=== PATIENT | male | born 1980 | race Caucasian/White ===

== ENCOUNTER 2017-03-14 12:30 | Outpatient (RCR) | payer MEDICAID, SELFPAY ==
[2017-02-28 12:38] LABS: Absolute Lymphocyte Count 2.34 X10^3/ul (0.83-4.51); Absolute Neutrophil Count 3.2 X10^3/uL (2.0-7.7); Basophil# 0.01 X10^3/uL; Basophil% 0.2 % (0-1); Eosinophil# 0.12 X10^3/uL; Eosinophils% 1.9 % (0-5); Hematocrit 43.7 % (40-54); Hemoglobin 14.3 g/dl (13.0-16.5); Lymphocyte # 2.34 X10^3/ul (4.0); Lymphocyte % 37.9 % (19-41); Mean Corp Hgb Conc 32.7 g/gl (32-36); Mean Corpuscular Hgb 29.2 pg (27.0-32.0); Mean Corpuscular Volume 89.4 fL (80-94); Mean Platelet Vol. 10.3 fl (6.2-12.0); Monocyte# 0.51 X10^3/uL; Monocyte% 8.3 % (0-10); Neutrophil # 3.17 X10^3/uL (2.7-7.7); Neutrophil % 51.4 % (47-70); Platelet Count 169 K/mm3 (150-450); RBC Distribution Width CV 14.3 % (11.6-14.6); RBC Distribution Width SD 46.7 fl (35.1-43.9); Red Blood Count 4.89 M/mm3 (4.6-6.2); White Blood Count 6.2 K/mm3 (4.4-11.0)
[2017-02-28 12:44] LABS: POSITIVE COUNT NO; POSITIVE DIFFERENTIAL NO; POSITIVE MORPHOLOGY NO
[2017-03-14 13:51] LABS: Absolute Lymphocyte Count 1.55 X10^3/ul (0.83-4.51); Absolute Neutrophil Count 2.1 X10^3/uL (2.0-7.7); Basophil# 0.02 X10^3/uL; Basophil% 0.5 % (0-1); Eosinophil# 0.03 X10^3/uL; Eosinophils% 0.7 % (0-5); Hematocrit 42.5 % (40-54); Hemoglobin 14.2 g/dl (13.0-16.5); Lymphocyte # 1.55 X10^3/ul (4.0); Lymphocyte % 37.4 % (19-41); Mean Corp Hgb Conc 33.4 g/gl (32-36); Mean Corpuscular Hgb 29.5 pg (27.0-32.0); Mean Corpuscular Volume 88.2 fL (80-94); Mean Platelet Vol. 10.6 fl (6.2-12.0); Monocyte# 0.42 X10^3/uL; Monocyte% 10.1 % (0-10); Neutrophil # 2.12 X10^3/uL (2.7-7.7); Neutrophil % 51.3 % (47-70); Platelet Count 156 K/mm3 (150-450); RBC Distribution Width CV 14.9 % (11.6-14.6); RBC Distribution Width SD 47.8 fl (35.1-43.9); Red Blood Count 4.82 M/mm3 (4.6-6.2); White Blood Count 4.1 K/mm3 (4.4-11.0)
[2017-03-14 13:53] LABS: POSITIVE COUNT NO; POSITIVE DIFFERENTIAL NO; POSITIVE MORPHOLOGY NO
== END 2017-03-14 13:00 | disposition home or self-care (01) ==
LOC: LAB 12:30
PROVIDERS: Family Provider Family Medicine; PCP Family Medicine; Visit Provider Psychiatry & Neurology Child & Adolescent Psychiatry
DX: F31.9 Bipolar disorder, unspecified (principal); F41.9 Anxiety disorder, unspecified
CPT/HCPCS: 36415; 85025

== ENCOUNTER 2017-03-22 13:28 | Outpatient (RCR) | payer MEDICAID, SELFPAY ==
[2017-03-22 14:00] LABS: Absolute Lymphocyte Count 2.25 X10^3/ul (0.83-4.51); Absolute Neutrophil Count 5.3 X10^3/uL (2.0-7.7); Basophil# 0.01 X10^3/uL; Basophil% 0.1 % (0-1); Eosinophils% 1.2 % (0-5); Hematocrit 43.7 % (40-54); Hemoglobin 14.6 g/dl (13.0-16.5); Lymphocyte # 2.25 X10^3/ul (4.0); Lymphocyte % 26.4 % (19-41); Mean Corp Hgb Conc 33.4 g/gl (32-36); Mean Corpuscular Hgb 29.4 pg (27.0-32.0); Mean Corpuscular Volume 88.1 fL (80-94); Monocyte% 9.4 % (0-10); Neutrophil # 5.33 X10^3/uL (2.7-7.7); Neutrophil % 62.7 % (47-70); POSITIVE COUNT NO; POSITIVE DIFFERENTIAL NO; POSITIVE MORPHOLOGY NO; Platelet Count 150 K/mm3 (150-450); RBC Distribution Width CV 14.8 % (11.6-14.6); RBC Distribution Width SD 47.6 fl (35.1-43.9); Red Blood Count 4.96 M/mm3 (4.6-6.2); White Blood Count 8.5 K/mm3 (4.4-11.0)
== END 2017-03-22 15:00 | disposition home or self-care (01) ==
LOC: LAB 13:28
PROVIDERS: Family Provider Family Medicine; PCP Family Medicine; Visit Provider Psychiatry & Neurology Child & Adolescent Psychiatry
DX: F31.9 Bipolar disorder, unspecified (principal); F41.9 Anxiety disorder, unspecified
CPT/HCPCS: 36415; 85025

== ENCOUNTER 2017-05-16 10:44 | Outpatient (RCR) | payer MEDICAID, SELFPAY ==
[2017-04-19 10:27] LABS: Absolute Lymphocyte Count 1.38 X10^3/ul (0.83-4.51); Absolute Neutrophil Count 2.1 X10^3/uL (2.0-7.7); Basophil# 0.01 X10^3/uL; Basophil% 0.3 % (0-1); Eosinophil# 0.03 X10^3/uL; Eosinophils% 0.8 % (0-5); Lymphocyte # 1.38 X10^3/ul (4.0); Lymphocyte % 34.9 % (19-41); Mean Corp Hgb Conc 34.1 g/gl (32-36); Mean Corpuscular Hgb 30.1 pg (27.0-32.0); Mean Corpuscular Volume 88.2 fL (80-94); Mean Platelet Vol. 9.6 fl (6.2-12.0); Monocyte# 0.42 X10^3/uL; Monocyte% 10.6 % (0-10); Neutrophil % 53.1 % (47-70); POSITIVE COUNT NO; POSITIVE DIFFERENTIAL NO; POSITIVE MORPHOLOGY NO; Platelet Count 171 K/mm3 (150-450); RBC Distribution Width CV 14.9 % (11.6-14.6); Red Blood Count 4.65 M/mm3 (4.6-6.2)
[2017-04-19 10:51] LABS: ALB/GLOB Ratio 0.9 RATIO (0.9-2.4); AST(SGOT) 12 U/L (15-37); Alanine Aminotransfer ALT/SGPT 18 U/L (16-61); Albumin, Serum 3.7 g/dL (3.2-5.0); Alkaline Phosphatase 45 U/L (45-117); Anion Gap 8 (5-15); BUN 9 mg/dL (7-18); BUN/Creat Ratio 11.5 RATIO (10-20); Calcium,Total 9.3 mg/dL (8.5-10.1); Chloride 104 mmol/L (98-107); Creatinine, Serum 0.78 mg/dL (0.70-1.30); EST Glomerular Filtration Rate 119 mL/min (>60); Est Glom Filt Rate - Afr Amer 144 mL/min (>60); Globulin 4.3 g/dL (2.2-4.2); Glucose 97 mg/dL (74-106); Potassium 4.2 mmol/L (3.5-5.1); Sodium Level 138 mmol/L (136-145)
[2017-04-22 11:19] LABS: Absolute Lymphocyte Count 1.35 X10^3/ul (0.83-4.51); Absolute Neutrophil Count 1.8 X10^3/uL (2.0-7.7); Basophil# 0.01 X10^3/uL; Basophil% 0.3 % (0-1); Eosinophil# 0.05 X10^3/uL; Eosinophils% 1.3 % (0-5); Hematocrit 40.7 % (40-54); Hemoglobin 13.5 g/dl (13.0-16.5); Lymphocyte # 1.35 X10^3/ul (4.0); Lymphocyte % 36.4 % (19-41); Mean Corp Hgb Conc 33.2 g/gl (32-36); Mean Corpuscular Hgb 29.3 pg (27.0-32.0); Mean Corpuscular Volume 88.5 fL (80-94); Mean Platelet Vol. 9.4 fl (6.2-12.0); Monocyte# 0.48 X10^3/uL; Monocyte% 12.9 % (0-10); Neutrophil # 1.81 X10^3/uL (2.7-7.7); Neutrophil % 48.8 % (47-70); Platelet Count 150 K/mm3 (150-450); RBC Distribution Width CV 15.1 % (11.6-14.6); RBC Distribution Width SD 48.3 fl (35.1-43.9); White Blood Count 3.7 K/mm3 (4.4-11.0)
[2017-04-22 11:24] LABS: POSITIVE COUNT NO; POSITIVE DIFFERENTIAL NO; POSITIVE MORPHOLOGY NO
[2017-04-22 11:55] LABS: ALB/GLOB Ratio 0.8 RATIO (0.9-2.4); AST(SGOT) 20 U/L (15-37); Alanine Aminotransfer ALT/SGPT 19 U/L (16-61); Albumin, Serum 3.6 g/dL (3.2-5.0); Alkaline Phosphatase 48 U/L (45-117); Anion Gap 8 (5-15); BUN 10 mg/dL (7-18); BUN/Creat Ratio 11.7 RATIO (10-20); Calcium,Total 9.5 mg/dL (8.5-10.1); Chloride 105 mmol/L (98-107); Creatinine, Serum 0.86 mg/dL (0.70-1.30); EST Glomerular Filtration Rate 107 mL/min (>60); Est Glom Filt Rate - Afr Amer 130 mL/min (>60); Globulin 4.3 g/dL (2.2-4.2); Glucose 114 mg/dL (74-106); Potassium 4.2 mmol/L (3.5-5.1); Protein, Total 7.9 g/dL (6.4-8.2); Sodium Level 139 mmol/L (136-145)
[2017-04-26 10:10] LABS: Valproic Acid (Depakene) Level 84 ug/mL (50-100)
[2017-04-26 10:16] LABS: ALB/GLOB Ratio 0.9 RATIO (0.9-2.4); AST(SGOT) 21 U/L (15-37); Alanine Aminotransfer ALT/SGPT 23 U/L (16-61); Alkaline Phosphatase 48 U/L (45-117); Anion Gap 7 (5-15); BUN 9 mg/dL (7-18); BUN/Creat Ratio 11.3 RATIO (10-20); Calcium,Total 9.7 mg/dL (8.5-10.1); Chloride 103 mmol/L (98-107); Creatinine, Serum 0.79 mg/dL (0.70-1.30); EST Glomerular Filtration Rate 117 mL/min (>60); Est Glom Filt Rate - Afr Amer 142 mL/min (>60); Globulin 4.4 g/dL (2.2-4.2); Glucose 96 mg/dL (74-106); Potassium 4.3 mmol/L (3.5-5.1); Protein, Total 8.4 g/dL (6.4-8.2); Sodium Level 137 mmol/L (136-145)
[2017-05-02 09:15] LABS: Absolute Lymphocyte Count 1.52 X10^3/ul (0.83-4.51); Absolute Neutrophil Count 2.5 X10^3/uL (2.0-7.7); Basophil# 0.01 X10^3/uL; Basophil% 0.2 % (0-1); Eosinophil# 0.06 X10^3/uL; Eosinophils% 1.3 % (0-5); Hematocrit 39.9 % (40-54); Hemoglobin 13.4 g/dl (13.0-16.5); Lymphocyte # 1.52 X10^3/ul (4.0); Lymphocyte % 32.8 % (19-41); Mean Corp Hgb Conc 33.6 g/gl (32-36); Mean Corpuscular Volume 89.3 fL (80-94); Mean Platelet Vol. 9.8 fl (6.2-12.0); Monocyte# 0.54 X10^3/uL; Monocyte% 11.7 % (0-10); Neutrophil # 2.49 X10^3/uL (2.7-7.7); Neutrophil % 53.8 % (47-70); Platelet Count 153 K/mm3 (150-450); RBC Distribution Width CV 15.1 % (11.6-14.6); RBC Distribution Width SD 49.1 fl (35.1-43.9); Red Blood Count 4.47 M/mm3 (4.6-6.2); White Blood Count 4.6 K/mm3 (4.4-11.0)
[2017-05-02 09:20] LABS: POSITIVE COUNT NO; POSITIVE DIFFERENTIAL NO; POSITIVE MORPHOLOGY NO
[2017-05-09 08:33] LABS: Absolute Lymphocyte Count 1.75 X10^3/ul (0.83-4.51); Absolute Neutrophil Count 2.8 X10^3/uL (2.0-7.7); Basophil# 0.01 X10^3/uL; Basophil% 0.2 % (0-1); Eosinophil# 0.15 X10^3/uL; Eosinophils% 2.9 % (0-5); Hematocrit 41.1 % (40-54); Hemoglobin 13.4 g/dl (13.0-16.5); Lymphocyte # 1.75 X10^3/ul (4.0); Lymphocyte % 34.1 % (19-41); Mean Corp Hgb Conc 32.6 g/gl (32-36); Mean Corpuscular Hgb 29.6 pg (27.0-32.0); Mean Corpuscular Volume 90.7 fL (80-94); Mean Platelet Vol. 9.7 fl (6.2-12.0); Monocyte# 0.47 X10^3/uL; Monocyte% 9.2 % (0-10); Neutrophil # 2.75 X10^3/uL (2.7-7.7); Neutrophil % 53.6 % (47-70); Platelet Count 142 K/mm3 (150-450); RBC Distribution Width SD 53.5 fl (35.1-43.9); Red Blood Count 4.53 M/mm3 (4.6-6.2); White Blood Count 5.1 K/mm3 (4.4-11.0)
[2017-05-09 08:34] LABS: POSITIVE COUNT NO; POSITIVE DIFFERENTIAL NO; POSITIVE MORPHOLOGY NO
[2017-05-16 11:20] LABS: Absolute Neutrophil Count 2.6 X10^3/uL (2.0-7.7); Basophil# 0.01 X10^3/uL; Basophil% 0.2 % (0-1); Eosinophil# 0.08 X10^3/uL; Eosinophils% 1.6 % (0-5); Hematocrit 39.9 % (40-54); Hemoglobin 13.1 g/dl (13.0-16.5); Lymphocyte % 32.9 % (19-41); Mean Corp Hgb Conc 32.8 g/gl (32-36); Mean Corpuscular Hgb 29.9 pg (27.0-32.0); Mean Corpuscular Volume 91.1 fL (80-94); Mean Platelet Vol. 9.8 fl (6.2-12.0); Monocyte# 0.74 X10^3/uL; Monocyte% 14.3 % (0-10); Neutrophil # 2.62 X10^3/uL (2.7-7.7); Neutrophil % 50.8 % (47-70); Platelet Count 164 K/mm3 (150-450); RBC Distribution Width CV 15.7 % (11.6-14.6); RBC Distribution Width SD 51.5 fl (35.1-43.9); Red Blood Count 4.38 M/mm3 (4.6-6.2); White Blood Count 5.2 K/mm3 (4.4-11.0)
[2017-05-16 11:26] LABS: POSITIVE COUNT NO; POSITIVE DIFFERENTIAL NO; POSITIVE MORPHOLOGY NO
== END 2017-05-16 11:00 | disposition home or self-care (01) ==
LOC: LAB 10:44
PROVIDERS: Family Provider Family Medicine; PCP Family Medicine; Visit Provider Psychiatry & Neurology Child & Adolescent Psychiatry
DX: F31.9 Bipolar disorder, unspecified (principal); F41.9 Anxiety disorder, unspecified
CPT/HCPCS: 36415; 80053; 80164; 82140; 85025

== ENCOUNTER 2017-06-14 09:58 | Outpatient (RCR) | payer MEDICAID, SELFPAY ==
[2017-05-24 11:23] LABS: Absolute Lymphocyte Count 1.54 X10^3/ul (0.83-4.51); Absolute Neutrophil Count 2.7 X10^3/uL (2.0-7.7); Basophil# 0.02 X10^3/uL; Basophil% 0.4 % (0-1); Eosinophil# 0.07 X10^3/uL; Eosinophils% 1.4 % (0-5); Hematocrit 39.7 % (40-54); Hemoglobin 13.2 g/dl (13.0-16.5); Lymphocyte # 1.54 X10^3/ul (4.0); Lymphocyte % 31.6 % (19-41); Mean Corp Hgb Conc 33.2 g/gl (32-36); Mean Corpuscular Hgb 29.9 pg (27.0-32.0); Mean Platelet Vol. 9.8 fl (6.2-12.0); Monocyte# 0.49 X10^3/uL; Monocyte% 10.1 % (0-10); Neutrophil # 2.74 X10^3/uL (2.7-7.7); Neutrophil % 56.3 % (47-70); Platelet Count 184 K/mm3 (150-450); RBC Distribution Width CV 15.4 % (11.6-14.6); RBC Distribution Width SD 50.7 fl (35.1-43.9); Red Blood Count 4.41 M/mm3 (4.6-6.2); White Blood Count 4.9 K/mm3 (4.4-11.0)
[2017-05-24 11:26] LABS: POSITIVE COUNT NO; POSITIVE DIFFERENTIAL NO; POSITIVE MORPHOLOGY NO
[2017-05-24 11:53] LABS: ALB/GLOB Ratio 0.8 RATIO (0.9-2.4); AST(SGOT) 22 U/L (15-37); Alanine Aminotransfer ALT/SGPT 19 U/L (16-61); Albumin, Serum 3.6 g/dL (3.2-5.0); Alkaline Phosphatase 45 U/L (45-117); Anion Gap 8 (5-15); BUN 11 mg/dL (7-18); BUN/Creat Ratio 15.5 RATIO (10-20); Calcium,Total 9.1 mg/dL (8.5-10.1); Chloride 104 mmol/L (98-107); Creatinine, Serum 0.71 mg/dL (0.70-1.30); EST Glomerular Filtration Rate 133 mL/min (>60); Est Glom Filt Rate - Afr Amer 161 mL/min (>60); Globulin 4.4 g/dL (2.2-4.2); Glucose 85 mg/dL (74-106); Potassium 4.1 mmol/L (3.5-5.1); Sodium Level 139 mmol/L (136-145)
[2017-05-30 08:49] LABS: Absolute Lymphocyte Count 1.38 X10^3/ul (0.83-4.51); Absolute Neutrophil Count 2.7 X10^3/uL (2.0-7.7); Basophil# 0.01 X10^3/uL; Basophil% 0.2 % (0-1); Eosinophil# 0.14 X10^3/uL; Eosinophils% 2.9 % (0-5); Hematocrit 39.6 % (40-54); Hemoglobin 13.1 g/dl (13.0-16.5); Lymphocyte # 1.38 X10^3/ul (4.0); Lymphocyte % 28.9 % (19-41); Mean Corp Hgb Conc 33.1 g/gl (32-36); Mean Corpuscular Hgb 30.3 pg (27.0-32.0); Mean Corpuscular Volume 91.5 fL (80-94); Mean Platelet Vol. 9.9 fl (6.2-12.0); Monocyte# 0.56 X10^3/uL; Monocyte% 11.7 % (0-10); Neutrophil # 2.67 X10^3/uL (2.7-7.7); Neutrophil % 56.1 % (47-70); POSITIVE COUNT NO; POSITIVE DIFFERENTIAL NO; POSITIVE MORPHOLOGY NO; Platelet Count 162 K/mm3 (150-450); RBC Distribution Width CV 15.4 % (11.6-14.6); RBC Distribution Width SD 50.4 fl (35.1-43.9); Red Blood Count 4.33 M/mm3 (4.6-6.2); White Blood Count 4.8 K/mm3 (4.4-11.0)
[2017-05-30 09:10] LABS: Valproic Acid (Depakene) Level 80 ug/mL (50-100)
[2017-05-30 09:23] LABS: ALB/GLOB Ratio 0.9 RATIO (0.9-2.4); AST(SGOT) 23 U/L (15-37); Alanine Aminotransfer ALT/SGPT 20 U/L (16-61); Albumin, Serum 3.4 g/dL (3.2-5.0); Alkaline Phosphatase 47 U/L (45-117); Anion Gap 6 (5-15); BUN 11 mg/dL (7-18); BUN/Creat Ratio 14.1 RATIO (10-20); Chloride 107 mmol/L (98-107); Creatinine, Serum 0.78 mg/dL (0.70-1.30); EST Glomerular Filtration Rate 120 mL/min (>60); Est Glom Filt Rate - Afr Amer 145 mL/min (>60); Globulin 3.8 g/dL (2.2-4.2); Glucose 66 mg/dL (74-106); Potassium 4.1 mmol/L (3.5-5.1); Protein, Total 7.2 g/dL (6.4-8.2); Sodium Level 144 mmol/L (136-145)
[2017-06-07 11:38] LABS: Absolute Lymphocyte Count 1.82 X10^3/ul (0.83-4.51); Absolute Neutrophil Count 2.6 X10^3/uL (2.0-7.7); Basophil# 0.02 X10^3/uL; Basophil% 0.4 % (0-1); Eosinophil# 0.08 X10^3/uL; Eosinophils% 1.6 % (0-5); Hematocrit 39.6 % (40-54); Hemoglobin 13.1 g/dl (13.0-16.5); Lymphocyte # 1.82 X10^3/ul (4.0); Lymphocyte % 36.2 % (19-41); Mean Corp Hgb Conc 33.1 g/gl (32-36); Mean Corpuscular Hgb 30.2 pg (27.0-32.0); Mean Corpuscular Volume 91.2 fL (80-94); Mean Platelet Vol. 9.9 fl (6.2-12.0); Monocyte# 0.49 X10^3/uL; Monocyte% 9.7 % (0-10); Neutrophil # 2.61 X10^3/uL (2.7-7.7); Neutrophil % 51.9 % (47-70); Platelet Count 189 K/mm3 (150-450); RBC Distribution Width CV 15.1 % (11.6-14.6); RBC Distribution Width SD 49.3 fl (35.1-43.9); Red Blood Count 4.34 M/mm3 (4.6-6.2)
[2017-06-07 11:40] LABS: POSITIVE COUNT NO; POSITIVE DIFFERENTIAL NO; POSITIVE MORPHOLOGY NO
[2017-06-14 11:36] LABS: Absolute Lymphocyte Count 2.05 X10^3/ul (0.83-4.51); Absolute Neutrophil Count 2.7 X10^3/uL (2.0-7.7); Basophil# 0.01 X10^3/uL; Basophil% 0.2 % (0-1); Eosinophil# 0.07 X10^3/uL; Eosinophils% 1.3 % (0-5); Hematocrit 40.9 % (40-54); Hemoglobin 13.1 g/dl (13.0-16.5); Lymphocyte # 2.05 X10^3/ul (4.0); Lymphocyte % 37.9 % (19-41); Mean Corpuscular Hgb 29.2 pg (27.0-32.0); Mean Corpuscular Volume 91.3 fL (80-94); Mean Platelet Vol. 9.7 fl (6.2-12.0); Monocyte# 0.62 X10^3/uL; Monocyte% 11.5 % (0-10); Neutrophil # 2.65 X10^3/uL (2.7-7.7); Neutrophil % 48.9 % (47-70); POSITIVE COUNT NO; POSITIVE DIFFERENTIAL NO; POSITIVE MORPHOLOGY NO; Platelet Count 173 K/mm3 (150-450); RBC Distribution Width CV 15.1 % (11.6-14.6); Red Blood Count 4.48 M/mm3 (4.6-6.2); White Blood Count 5.4 K/mm3 (4.4-11.0)
== END 2017-06-14 10:00 | disposition home or self-care (01) ==
LOC: LAB 09:58
PROVIDERS: Family Provider Family Medicine; PCP Family Medicine; Visit Provider Psychiatry & Neurology Child & Adolescent Psychiatry
DX: F31.9 Bipolar disorder, unspecified (principal); F41.9 Anxiety disorder, unspecified
CPT/HCPCS: 36415; 80053; 80164; 85025

== ENCOUNTER 2017-07-04 08:18 | Outpatient (RCR) | payer MEDICAID, SELFPAY ==
[2017-07-04 09:00] LABS: Absolute Lymphocyte Count 1.49 X10^3/ul (0.83-4.51); Absolute Neutrophil Count 3.6 X10^3/uL (2.0-7.7); Basophil# 0.01 X10^3/uL; Basophil% 0.2 % (0-1); Eosinophil# 0.08 X10^3/uL; Eosinophils% 1.4 % (0-5); Hematocrit 41.3 % (40-54); Hemoglobin 13.2 g/dl (13.0-16.5); Lymphocyte # 1.49 X10^3/ul (4.0); Lymphocyte % 25.5 % (19-41); Mean Corpuscular Hgb 29.2 pg (27.0-32.0); Mean Corpuscular Volume 91.4 fL (80-94); Mean Platelet Vol. 9.6 fl (6.2-12.0); Monocyte# 0.65 X10^3/uL; Monocyte% 11.1 % (0-10); Neutrophil # 3.61 X10^3/uL (2.7-7.7); Neutrophil % 61.6 % (47-70); Platelet Count 155 K/mm3 (150-450); RBC Distribution Width CV 14.8 % (11.6-14.6); RBC Distribution Width SD 49.7 fl (35.1-43.9); Red Blood Count 4.52 M/mm3 (4.6-6.2); White Blood Count 5.9 K/mm3 (4.4-11.0)
[2017-07-04 09:05] LABS: POSITIVE COUNT NO; POSITIVE DIFFERENTIAL NO; POSITIVE MORPHOLOGY NO
[2017-07-04 09:25] LABS: Valproic Acid (Depakene) Level 67 ug/mL (50-100)
[2017-07-04 09:26] LABS: ALB/GLOB Ratio 0.8 RATIO (0.9-2.4); AST(SGOT) 13 U/L (15-37); Alanine Aminotransfer ALT/SGPT 17 U/L (16-61); Albumin, Serum 3.3 g/dL (3.2-5.0); Alkaline Phosphatase 45 U/L (45-117); Anion Gap 7 (5-15); BUN 13 mg/dL (7-18); Calcium,Total 8.8 mg/dL (8.5-10.1); Chloride 107 mmol/L (98-107); Creatinine, Serum 0.81 mg/dL (0.70-1.30); EST Glomerular Filtration Rate 114 mL/min (>60); Est Glom Filt Rate - Afr Amer 139 mL/min (>60); Globulin 4.1 g/dL (2.2-4.2); Glucose 95 mg/dL (74-106); Potassium 4.2 mmol/L (3.5-5.1); Protein, Total 7.4 g/dL (6.4-8.2); Sodium Level 144 mmol/L (136-145)
== END 2017-07-04 09:00 | disposition home or self-care (01) ==
LOC: LAB 08:18
PROVIDERS: Family Provider Family Medicine; PCP Family Medicine; Visit Provider Psychiatry & Neurology Child & Adolescent Psychiatry
DX: F31.81 Bipolar II disorder (principal); F31.9 Bipolar disorder, unspecified; F41.9 Anxiety disorder, unspecified
CPT/HCPCS: 36415; 80053; 80164; 85025

== ENCOUNTER 2017-08-15 09:59 | Outpatient (RCR) | payer MEDICAID, SELFPAY ==
[2017-08-01 11:01] LABS: Absolute Neutrophil Count 3.4 X10^3/uL (2.0-7.7); Basophil# 0.01 X10^3/uL; Basophil% 0.2 % (0-1); Eosinophil# 0.11 X10^3/uL; Eosinophils% 1.8 % (0-5); Hematocrit 41.1 % (40-54); Hemoglobin 13.7 g/dl (13.0-16.5); Lymphocyte % 31.2 % (19-41); Mean Corp Hgb Conc 33.3 g/gl (32-36); Mean Corpuscular Hgb 29.7 pg (27.0-32.0); Mean Corpuscular Volume 89.2 fL (80-94); Monocyte# 0.62 X10^3/uL; Monocyte% 10.2 % (0-10); Neutrophil # 3.43 X10^3/uL (2.7-7.7); Neutrophil % 56.3 % (47-70); Platelet Count 193 K/mm3 (150-450); RBC Distribution Width CV 14.2 % (11.6-14.6); RBC Distribution Width SD 45.8 fl (35.1-43.9); Red Blood Count 4.61 M/mm3 (4.6-6.2); White Blood Count 6.1 K/mm3 (4.4-11.0)
[2017-08-01 11:04] LABS: POSITIVE COUNT NO; POSITIVE DIFFERENTIAL NO; POSITIVE MORPHOLOGY NO
[2017-08-08 11:01] LABS: Absolute Lymphocyte Count 1.63 X10^3/ul (0.83-4.51); Absolute Neutrophil Count 3.7 X10^3/uL (2.0-7.7); Basophil# 0.01 X10^3/uL; Basophil% 0.2 % (0-1); Eosinophil# 0.19 X10^3/uL; Hematocrit 40.4 % (40-54); Hemoglobin 13.6 g/dl (13.0-16.5); Lymphocyte # 1.63 X10^3/ul (4.0); Lymphocyte % 25.7 % (19-41); Mean Corp Hgb Conc 33.7 g/gl (32-36); Mean Corpuscular Hgb 29.9 pg (27.0-32.0); Mean Corpuscular Volume 88.8 fL (80-94); Mean Platelet Vol. 9.8 fl (6.2-12.0); Monocyte# 0.78 X10^3/uL; Monocyte% 12.3 % (0-10); Neutrophil # 3.73 X10^3/uL (2.7-7.7); Neutrophil % 58.6 % (47-70); Platelet Count 163 K/mm3 (150-450); RBC Distribution Width CV 14.2 % (11.6-14.6); RBC Distribution Width SD 45.6 fl (35.1-43.9); Red Blood Count 4.55 M/mm3 (4.6-6.2); White Blood Count 6.4 K/mm3 (4.4-11.0)
[2017-08-08 11:06] LABS: POSITIVE COUNT NO; POSITIVE DIFFERENTIAL NO; POSITIVE MORPHOLOGY NO
[2017-08-15 11:25] LABS: Absolute Lymphocyte Count 1.76 X10^3/ul (0.83-4.51); Absolute Neutrophil Count 2.8 X10^3/uL (2.0-7.7); Basophil# 0.01 X10^3/uL; Basophil% 0.2 % (0-1); Eosinophil# 0.23 X10^3/uL; Eosinophils% 4.2 % (0-5); Hematocrit 41.8 % (40-54); Hemoglobin 13.4 g/dl (13.0-16.5); Lymphocyte # 1.76 X10^3/ul (4.0); Lymphocyte % 32.1 % (19-41); Mean Corp Hgb Conc 32.1 g/gl (32-36); Mean Corpuscular Hgb 28.6 pg (27.0-32.0); Mean Corpuscular Volume 89.1 fL (80-94); Mean Platelet Vol. 9.4 fl (6.2-12.0); Monocyte# 0.72 X10^3/uL; Monocyte% 13.1 % (0-10); Neutrophil # 2.76 X10^3/uL (2.7-7.7); Neutrophil % 50.2 % (47-70); Platelet Count 150 K/mm3 (150-450); RBC Distribution Width CV 14.4 % (11.6-14.6); RBC Distribution Width SD 46.6 fl (35.1-43.9); Red Blood Count 4.69 M/mm3 (4.6-6.2); White Blood Count 5.5 K/mm3 (4.4-11.0)
[2017-08-15 11:26] LABS: POSITIVE COUNT NO; POSITIVE DIFFERENTIAL NO; POSITIVE MORPHOLOGY NO
== END 2017-08-15 11:00 | disposition home or self-care (01) ==
LOC: LAB 09:59
PROVIDERS: Family Provider Family Medicine; PCP Family Medicine; Visit Provider Psychiatry & Neurology Child & Adolescent Psychiatry
DX: F31.81 Bipolar II disorder (principal); F31.9 Bipolar disorder, unspecified; F41.9 Anxiety disorder, unspecified
CPT/HCPCS: 36415; 85025

== ENCOUNTER 2017-09-12 09:51 | Outpatient (RCR) | payer MEDICAID, SELFPAY ==
[2017-08-22 10:05] LABS: Absolute Lymphocyte Count 1.99 X10^3/ul (0.83-4.51); Basophil# 0.02 X10^3/uL; Basophil% 0.4 % (0-1); Eosinophil# 0.16 X10^3/uL; Eosinophils% 3.4 % (0-5); Hematocrit 40.6 % (40-54); Hemoglobin 13.5 g/dl (13.0-16.5); Lymphocyte # 1.99 X10^3/ul (4.0); Lymphocyte % 42.5 % (19-41); Mean Corp Hgb Conc 33.3 g/gl (32-36); Mean Corpuscular Hgb 29.7 pg (27.0-32.0); Mean Corpuscular Volume 89.2 fL (80-94); Mean Platelet Vol. 9.7 fl (6.2-12.0); Monocyte# 0.45 X10^3/uL; Monocyte% 9.6 % (0-10); Neutrophil # 2.04 X10^3/uL (2.7-7.7); Neutrophil % 43.7 % (47-70); Platelet Count 143 K/mm3 (150-450); RBC Distribution Width CV 14.1 % (11.6-14.6); RBC Distribution Width SD 45.4 fl (35.1-43.9); Red Blood Count 4.55 M/mm3 (4.6-6.2); White Blood Count 4.7 K/mm3 (4.4-11.0)
[2017-08-22 10:06] LABS: POSITIVE COUNT NO; POSITIVE DIFFERENTIAL NO; POSITIVE MORPHOLOGY NO
[2017-08-29 10:34] LABS: Absolute Lymphocyte Count 1.76 X10^3/ul (0.83-4.51); Absolute Neutrophil Count 2.9 X10^3/uL (2.0-7.7); Basophil# 0.02 X10^3/uL; Basophil% 0.4 % (0-1); Eosinophil# 0.12 X10^3/uL; Eosinophils% 2.2 % (0-5); Hemoglobin 13.6 g/dl (13.0-16.5); Lymphocyte # 1.76 X10^3/ul (4.0); Lymphocyte % 31.8 % (19-41); Mean Corp Hgb Conc 33.2 g/gl (32-36); Mean Corpuscular Hgb 29.4 pg (27.0-32.0); Mean Corpuscular Volume 88.7 fL (80-94); Mean Platelet Vol. 9.8 fl (6.2-12.0); Monocyte% 12.6 % (0-10); Neutrophil # 2.93 X10^3/uL (2.7-7.7); Neutrophil % 52.8 % (47-70); Platelet Count 166 K/mm3 (150-450); RBC Distribution Width CV 14.3 % (11.6-14.6); RBC Distribution Width SD 45.8 fl (35.1-43.9); Red Blood Count 4.62 M/mm3 (4.6-6.2); White Blood Count 5.5 K/mm3 (4.4-11.0)
[2017-08-29 10:35] LABS: POSITIVE COUNT NO; POSITIVE DIFFERENTIAL NO; POSITIVE MORPHOLOGY NO
[2017-09-05 10:24] LABS: Absolute Lymphocyte Count 2.03 X10^3/ul (0.83-4.51); Absolute Neutrophil Count 2.6 X10^3/uL (2.0-7.7); Basophil# 0.02 X10^3/uL; Basophil% 0.4 % (0-1); Eosinophil# 0.17 X10^3/uL; Eosinophils% 3.2 % (0-5); Hematocrit 40.7 % (40-54); Hemoglobin 13.6 g/dl (13.0-16.5); Lymphocyte # 2.03 X10^3/ul (4.0); Lymphocyte % 38.3 % (19-41); Mean Corp Hgb Conc 33.4 g/gl (32-36); Mean Corpuscular Hgb 29.6 pg (27.0-32.0); Mean Corpuscular Volume 88.7 fL (80-94); Mean Platelet Vol. 9.5 fl (6.2-12.0); Monocyte# 0.51 X10^3/uL; Monocyte% 9.6 % (0-10); Neutrophil # 2.56 X10^3/uL (2.7-7.7); Neutrophil % 48.3 % (47-70); Platelet Count 147 K/mm3 (150-450); RBC Distribution Width CV 14.2 % (11.6-14.6); RBC Distribution Width SD 45.7 fl (35.1-43.9); Red Blood Count 4.59 M/mm3 (4.6-6.2); White Blood Count 5.3 K/mm3 (4.4-11.0)
[2017-09-05 10:25] LABS: POSITIVE COUNT NO; POSITIVE DIFFERENTIAL NO; POSITIVE MORPHOLOGY NO
[2017-09-12 10:36] LABS: Absolute Lymphocyte Count 1.81 X10^3/ul (0.83-4.51); Absolute Neutrophil Count 3.4 X10^3/uL (2.0-7.7); Basophil# 0.01 X10^3/uL; Basophil% 0.2 % (0-1); Eosinophil# 0.17 X10^3/uL; Eosinophils% 2.8 % (0-5); Hematocrit 42.6 % (40-54); Lymphocyte # 1.81 X10^3/ul (4.0); Lymphocyte % 29.9 % (19-41); Mean Corp Hgb Conc 32.9 g/gl (32-36); Mean Corpuscular Hgb 29.3 pg (27.0-32.0); Mean Corpuscular Volume 89.1 fL (80-94); Mean Platelet Vol. 9.5 fl (6.2-12.0); Monocyte# 0.69 X10^3/uL; Monocyte% 11.4 % (0-10); Neutrophil # 3.36 X10^3/uL (2.7-7.7); Neutrophil % 55.5 % (47-70); Platelet Count 147 K/mm3 (150-450); RBC Distribution Width CV 14.6 % (11.6-14.6); RBC Distribution Width SD 47.5 fl (35.1-43.9); Red Blood Count 4.78 M/mm3 (4.6-6.2); White Blood Count 6.1 K/mm3 (4.4-11.0)
[2017-09-12 10:42] LABS: POSITIVE COUNT NO; POSITIVE DIFFERENTIAL NO; POSITIVE MORPHOLOGY NO
[2017-09-12 10:53] LABS: Valproic Acid (Depakene) Level 78 ug/mL (50-100)
[2017-09-12 10:57] LABS: ALB/GLOB Ratio 0.8 RATIO (0.9-2.4); AST(SGOT) 16 U/L (15-37); Alanine Aminotransfer ALT/SGPT 17 U/L (16-61); Albumin, Serum 3.6 g/dL (3.2-5.0); Alkaline Phosphatase 46 U/L (45-117); Anion Gap 6 (5-15); BUN 8 mg/dL (7-18); BUN/Creat Ratio 10.8 RATIO (10-20); Calcium,Total 9.6 mg/dL (8.5-10.1); Chloride 106 mmol/L (98-107); Creatinine, Serum 0.74 mg/dL (0.70-1.30); EST Glomerular Filtration Rate 127 mL/min (>60); Est Glom Filt Rate - Afr Amer 153 mL/min (>60); Globulin 4.3 g/dL (2.2-4.2); Glucose 89 mg/dL (74-106); Potassium 4.4 mmol/L (3.5-5.1); Protein, Total 7.9 g/dL (6.4-8.2); Sodium Level 141 mmol/L (136-145)
== END 2017-09-19 09:51 | disposition home or self-care (01) ==
LOC: LAB 09:51
PROVIDERS: Family Provider Family Medicine; PCP Family Medicine; Visit Provider Psychiatry & Neurology Child & Adolescent Psychiatry
DX: F31.81 Bipolar II disorder (principal)
CPT/HCPCS: 36415; 80053; 80164; 85025

== ENCOUNTER 2017-10-17 09:50 | Outpatient (RCR) | payer MEDICAID, SELFPAY ==
[2017-09-19 10:52] LABS: Absolute Lymphocyte Count 1.78 X10^3/ul (0.83-4.51); Absolute Neutrophil Count 1.7 X10^3/uL (2.0-7.7); Basophil# 0.01 X10^3/uL; Basophil% 0.2 % (0-1); Eosinophil# 0.17 X10^3/uL; Eosinophils% 4.2 % (0-5); Hematocrit 41.3 % (40-54); Hemoglobin 13.2 g/dl (13.0-16.5); Lymphocyte # 1.78 X10^3/ul (4.0); Lymphocyte % 43.5 % (19-41); Mean Corpuscular Hgb 28.7 pg (27.0-32.0); Mean Corpuscular Volume 89.8 fL (80-94); Mean Platelet Vol. 9.7 fl (6.2-12.0); Monocyte# 0.41 X10^3/uL; Neutrophil # 1.71 X10^3/uL (2.7-7.7); Neutrophil % 41.9 % (47-70); Platelet Count 143 K/mm3 (150-450); RBC Distribution Width CV 14.5 % (11.6-14.6); RBC Distribution Width SD 47.1 fl (35.1-43.9); White Blood Count 4.1 K/mm3 (4.4-11.0)
[2017-09-19 10:58] LABS: POSITIVE COUNT NO; POSITIVE DIFFERENTIAL NO; POSITIVE MORPHOLOGY NO
[2017-09-26 10:09] LABS: Basophil# 0.01 X10^3/uL; Basophil% 0.2 % (0-1); Eosinophil# 0.17 X10^3/uL; Eosinophils% 3.7 % (0-5); Hematocrit 42.2 % (40-54); Lymphocyte % 41.9 % (19-41); Mean Corp Hgb Conc 33.2 g/gl (32-36); Mean Corpuscular Hgb 29.3 pg (27.0-32.0); Mean Corpuscular Volume 88.3 fL (80-94); Mean Platelet Vol. 9.3 fl (6.2-12.0); Monocyte# 0.43 X10^3/uL; Monocyte% 9.5 % (0-10); Neutrophil # 2.02 X10^3/uL (2.7-7.7); Neutrophil % 44.5 % (47-70); Platelet Count 171 K/mm3 (150-450); RBC Distribution Width CV 14.7 % (11.6-14.6); RBC Distribution Width SD 46.8 fl (35.1-43.9); Red Blood Count 4.78 M/mm3 (4.6-6.2); White Blood Count 4.5 K/mm3 (4.4-11.0)
[2017-09-26 10:16] LABS: POSITIVE COUNT NO; POSITIVE DIFFERENTIAL NO; POSITIVE MORPHOLOGY NO
[2017-10-03 14:18] LABS: Absolute Lymphocyte Count 1.73 X10^3/ul (0.83-4.51); Absolute Neutrophil Count 2.1 X10^3/uL (2.0-7.7); Basophil# 0.01 X10^3/uL; Basophil% 0.2 % (0-1); Eosinophil# 0.15 X10^3/uL; Eosinophils% 3.2 % (0-5); Hematocrit 42.7 % (40-54); Hemoglobin 13.4 g/dl (13.0-16.5); Lymphocyte # 1.73 X10^3/ul (4.0); Lymphocyte % 36.8 % (19-41); Mean Corp Hgb Conc 31.4 g/gl (32-36); Mean Corpuscular Hgb 28.5 pg (27.0-32.0); Mean Corpuscular Volume 90.7 fL (80-94); Monocyte# 0.67 X10^3/uL; Monocyte% 14.3 % (0-10); Neutrophil # 2.14 X10^3/uL (2.7-7.7); Neutrophil % 45.5 % (47-70); Platelet Count 166 K/mm3 (150-450); RBC Distribution Width CV 14.9 % (11.6-14.6); RBC Distribution Width SD 49.3 fl (35.1-43.9); Red Blood Count 4.71 M/mm3 (4.6-6.2); White Blood Count 4.7 K/mm3 (4.4-11.0)
[2017-10-03 14:20] LABS: POSITIVE COUNT NO; POSITIVE DIFFERENTIAL NO; POSITIVE MORPHOLOGY NO
[2017-10-10 10:47] LABS: Absolute Neutrophil Count 2.3 X10^3/uL (2.0-7.7); Basophil# 0.02 X10^3/uL; Basophil% 0.4 % (0-1); Eosinophil# 0.16 X10^3/uL; Eosinophils% 3.3 % (0-5); Hematocrit 41.7 % (40-54); Hemoglobin 13.9 g/dl (13.0-16.5); Lymphocyte % 37.1 % (19-41); Mean Corp Hgb Conc 33.3 g/gl (32-36); Mean Corpuscular Hgb 29.8 pg (27.0-32.0); Mean Corpuscular Volume 89.3 fL (80-94); Mean Platelet Vol. 9.5 fl (6.2-12.0); Monocyte# 0.56 X10^3/uL; Monocyte% 11.5 % (0-10); Neutrophil % 47.5 % (47-70); Platelet Count 161 K/mm3 (150-450); RBC Distribution Width CV 14.8 % (11.6-14.6); RBC Distribution Width SD 48.2 fl (35.1-43.9); Red Blood Count 4.67 M/mm3 (4.6-6.2); White Blood Count 4.9 K/mm3 (4.4-11.0)
[2017-10-10 10:52] LABS: POSITIVE COUNT NO; POSITIVE DIFFERENTIAL NO; POSITIVE MORPHOLOGY NO
[2017-10-17 10:53] LABS: Absolute Lymphocyte Count 1.68 X10^3/ul (0.83-4.51); Absolute Neutrophil Count 2.5 X10^3/uL (2.0-7.7); Basophil# 0.01 X10^3/uL; Basophil% 0.2 % (0-1); Eosinophil# 0.11 X10^3/uL; Eosinophils% 2.3 % (0-5); Hematocrit 42.6 % (40-54); Lymphocyte # 1.68 X10^3/ul (4.0); Lymphocyte % 34.6 % (19-41); Mean Corp Hgb Conc 32.9 g/gl (32-36); Mean Corpuscular Hgb 29.3 pg (27.0-32.0); Mean Corpuscular Volume 89.1 fL (80-94); Mean Platelet Vol. 9.8 fl (6.2-12.0); Monocyte# 0.53 X10^3/uL; Monocyte% 10.9 % (0-10); Neutrophil # 2.52 X10^3/uL (2.7-7.7); Neutrophil % 51.8 % (47-70); Platelet Count 166 K/mm3 (150-450); RBC Distribution Width CV 14.7 % (11.6-14.6); RBC Distribution Width SD 47.6 fl (35.1-43.9); Red Blood Count 4.78 M/mm3 (4.6-6.2); White Blood Count 4.9 K/mm3 (4.4-11.0)
[2017-10-17 11:06] LABS: POSITIVE COUNT NO; POSITIVE DIFFERENTIAL NO; POSITIVE MORPHOLOGY NO
[2017-10-17 11:24] LABS: ALB/GLOB Ratio 0.8 RATIO (0.9-2.4); AST(SGOT) 13 U/L (15-37); Alanine Aminotransfer ALT/SGPT 15 U/L (16-61); Albumin, Serum 3.6 g/dL (3.2-5.0); Alkaline Phosphatase 44 U/L (45-117); Anion Gap 11 (5-15); BUN 13 mg/dL (7-18); Calcium,Total 9.2 mg/dL (8.5-10.1); Chloride 105 mmol/L (98-107); Creatinine, Serum 0.76 mg/dL (0.70-1.30); EST Glomerular Filtration Rate 122 mL/min (>60); Est Glom Filt Rate - Afr Amer 148 mL/min (>60); Globulin 4.3 g/dL (2.2-4.2); Glucose 88 mg/dL (74-106); Potassium 4.3 mmol/L (3.5-5.1); Protein, Total 7.9 g/dL (6.4-8.2); Sodium Level 142 mmol/L (136-145); Valproic Acid (Depakene) Level 70 ug/mL (50-100)
== END 2017-10-17 11:00 | disposition home or self-care (01) ==
LOC: LAB 09:50
PROVIDERS: Family Provider Family Medicine; PCP Family Medicine; Visit Provider Psychiatry & Neurology Child & Adolescent Psychiatry
DX: F31.81 Bipolar II disorder (principal)
CPT/HCPCS: 36415; 80053; 80164; 85025

== ENCOUNTER 2017-11-14 10:01 | Outpatient (RCR) | payer MEDICAID, SELFPAY ==
[2017-10-24 10:31] LABS: Absolute Lymphocyte Count 1.86 X10^3/ul (0.83-4.51); Absolute Neutrophil Count 2.8 X10^3/uL (2.0-7.7); Basophil# 0.02 X10^3/uL; Basophil% 0.4 % (0-1); Eosinophil# 0.12 X10^3/uL; Eosinophils% 2.2 % (0-5); Hematocrit 40.7 % (40-54); Hemoglobin 13.1 g/dl (13.0-16.5); Lymphocyte # 1.86 X10^3/ul (4.0); Lymphocyte % 33.9 % (19-41); Mean Corp Hgb Conc 32.2 g/gl (32-36); Mean Corpuscular Hgb 28.9 pg (27.0-32.0); Mean Corpuscular Volume 89.8 fL (80-94); Mean Platelet Vol. 9.3 fl (6.2-12.0); Monocyte# 0.67 X10^3/uL; Monocyte% 12.2 % (0-10); Neutrophil % 50.9 % (47-70); Platelet Count 155 K/mm3 (150-450); RBC Distribution Width CV 14.7 % (11.6-14.6); RBC Distribution Width SD 48.5 fl (35.1-43.9); Red Blood Count 4.53 M/mm3 (4.6-6.2); White Blood Count 5.5 K/mm3 (4.4-11.0)
[2017-10-24 10:32] LABS: POSITIVE COUNT NO; POSITIVE DIFFERENTIAL NO; POSITIVE MORPHOLOGY NO
[2017-10-31 11:31] LABS: Absolute Lymphocyte Count 2.14 X10^3/ul (0.83-4.51); Absolute Neutrophil Count 2.5 X10^3/uL (2.0-7.7); Basophil# 0.02 X10^3/uL; Basophil% 0.4 % (0-1); Eosinophil# 0.11 X10^3/uL; Hematocrit 41.1 % (40-54); Hemoglobin 13.2 g/dl (13.0-16.5); Lymphocyte # 2.14 X10^3/ul (4.0); Lymphocyte % 39.9 % (19-41); Mean Corp Hgb Conc 32.1 g/gl (32-36); Mean Corpuscular Hgb 28.9 pg (27.0-32.0); Mean Corpuscular Volume 89.9 fL (80-94); Mean Platelet Vol. 9.3 fl (6.2-12.0); Monocyte# 0.62 X10^3/uL; Monocyte% 11.5 % (0-10); Neutrophil # 2.46 X10^3/uL (2.7-7.7); Neutrophil % 45.8 % (47-70); Platelet Count 160 K/mm3 (150-450); RBC Distribution Width CV 14.9 % (11.6-14.6); RBC Distribution Width SD 48.8 fl (35.1-43.9); Red Blood Count 4.57 M/mm3 (4.6-6.2); White Blood Count 5.4 K/mm3 (4.4-11.0)
[2017-10-31 11:33] LABS: POSITIVE COUNT NO; POSITIVE DIFFERENTIAL NO; POSITIVE MORPHOLOGY NO
[2017-11-07 13:21] LABS: Absolute Neutrophil Count 3.1 X10^3/uL (2.0-7.7); Basophil# 0.02 X10^3/uL; Basophil% 0.4 % (0-1); Eosinophils% 1.9 % (0-5); Hemoglobin 13.2 g/dl (13.0-16.5); Lymphocyte % 30.8 % (19-41); Mean Corpuscular Hgb 29.5 pg (27.0-32.0); Mean Corpuscular Volume 89.3 fL (80-94); Mean Platelet Vol. 9.6 fl (6.2-12.0); Monocyte# 0.37 X10^3/uL; Monocyte% 7.1 % (0-10); Neutrophil # 3.09 X10^3/uL (2.7-7.7); Neutrophil % 59.6 % (47-70); POSITIVE COUNT NO; POSITIVE DIFFERENTIAL NO; POSITIVE MORPHOLOGY NO; Platelet Count 161 K/mm3 (150-450); RBC Distribution Width CV 14.5 % (11.6-14.6); RBC Distribution Width SD 46.8 fl (35.1-43.9); Red Blood Count 4.48 M/mm3 (4.6-6.2); White Blood Count 5.2 K/mm3 (4.4-11.0)
[2017-11-14 10:43] LABS: Absolute Lymphocyte Count 1.53 X10^3/ul (0.83-4.51); Absolute Neutrophil Count 2.5 X10^3/uL (2.0-7.7); Basophil# 0.01 X10^3/uL; Basophil% 0.2 % (0-1); Eosinophil# 0.09 X10^3/uL; Eosinophils% 1.9 % (0-5); Hematocrit 41.2 % (40-54); Hemoglobin 13.4 g/dl (13.0-16.5); Lymphocyte # 1.53 X10^3/ul (4.0); Lymphocyte % 32.3 % (19-41); Mean Corp Hgb Conc 32.5 g/gl (32-36); Mean Corpuscular Hgb 29.4 pg (27.0-32.0); Mean Corpuscular Volume 90.4 fL (80-94); Mean Platelet Vol. 9.2 fl (6.2-12.0); Monocyte# 0.57 X10^3/uL; Neutrophil # 2.54 X10^3/uL (2.7-7.7); Neutrophil % 53.6 % (47-70); POSITIVE COUNT NO; POSITIVE DIFFERENTIAL NO; POSITIVE MORPHOLOGY NO; Platelet Count 154 K/mm3 (150-450); RBC Distribution Width CV 14.7 % (11.6-14.6); RBC Distribution Width SD 47.9 fl (35.1-43.9); Red Blood Count 4.56 M/mm3 (4.6-6.2); White Blood Count 4.7 K/mm3 (4.4-11.0)
[2017-11-14 11:09] LABS: ALB/GLOB Ratio 0.9 RATIO (0.9-2.4); AST(SGOT) 14 U/L (15-37); Alanine Aminotransfer ALT/SGPT 15 U/L (16-61); Albumin, Serum 3.6 g/dL (3.2-5.0); Alkaline Phosphatase 46 U/L (45-117); Anion Gap 6 (5-15); BUN 11 mg/dL (7-18); BUN/Creat Ratio 13.3 RATIO (10-20); Calcium,Total 9.3 mg/dL (8.5-10.1); Chloride 105 mmol/L (98-107); Creatinine, Serum 0.83 mg/dL (0.70-1.30); EST Glomerular Filtration Rate 112 mL/min (>60); Est Glom Filt Rate - Afr Amer 135 mL/min (>60); Globulin 4.1 g/dL (2.2-4.2); Glucose 85 mg/dL (74-106); Potassium 4.3 mmol/L (3.5-5.1); Protein, Total 7.7 g/dL (6.4-8.2); Sodium Level 139 mmol/L (136-145)
[2017-11-14 11:11] LABS: Valproic Acid (Depakene) Level 75 ug/mL (50-100)
== END 2017-11-14 11:00 | disposition home or self-care (01) ==
LOC: LAB 10:01
PROVIDERS: Family Provider Family Medicine; PCP Family Medicine; Visit Provider Psychiatry & Neurology Child & Adolescent Psychiatry
DX: F31.81 Bipolar II disorder (principal)
CPT/HCPCS: 36415; 80053; 80164; 85025

== ENCOUNTER 2017-12-16 10:08 | Outpatient (RCR) | payer MEDICAID, SELFPAY ==
[2017-11-21 10:25] LABS: Absolute Lymphocyte Count 1.77 X10^3/ul (0.83-4.51); Absolute Neutrophil Count 2.8 X10^3/uL (2.0-7.7); Basophil# 0.01 X10^3/uL; Basophil% 0.2 % (0-1); Eosinophil# 0.17 X10^3/uL; Eosinophils% 3.2 % (0-5); Hematocrit 40.5 % (40-54); Hemoglobin 13.1 g/dl (13.0-16.5); Lymphocyte # 1.77 X10^3/ul (4.0); Mean Corp Hgb Conc 32.3 g/gl (32-36); Mean Corpuscular Hgb 28.9 pg (27.0-32.0); Mean Corpuscular Volume 89.4 fL (80-94); Mean Platelet Vol. 9.4 fl (6.2-12.0); Monocyte# 0.58 X10^3/uL; Monocyte% 10.8 % (0-10); Neutrophil # 2.82 X10^3/uL (2.7-7.7); Neutrophil % 52.6 % (47-70); POSITIVE COUNT NO; POSITIVE DIFFERENTIAL NO; POSITIVE MORPHOLOGY NO; Platelet Count 131 K/mm3 (150-450); RBC Distribution Width CV 14.1 % (11.6-14.6); RBC Distribution Width SD 46.2 fl (35.1-43.9); Red Blood Count 4.53 M/mm3 (4.6-6.2); White Blood Count 5.4 K/mm3 (4.4-11.0)
[2017-11-28 13:01] LABS: Absolute Lymphocyte Count 1.55 X10^3/ul (0.83-4.51); Absolute Neutrophil Count 2.4 X10^3/uL (2.0-7.7); Basophil# 0.01 X10^3/uL; Basophil% 0.2 % (0-1); Eosinophil# 0.11 X10^3/uL; Eosinophils% 2.4 % (0-5); Hematocrit 42.1 % (40-54); Hemoglobin 13.7 g/dl (13.0-16.5); Lymphocyte # 1.55 X10^3/ul (4.0); Mean Corp Hgb Conc 32.5 g/gl (32-36); Mean Corpuscular Hgb 29.3 pg (27.0-32.0); Mean Corpuscular Volume 90.1 fL (80-94); Mean Platelet Vol. 9.4 fl (6.2-12.0); Monocyte# 0.46 X10^3/uL; Monocyte% 10.1 % (0-10); Neutrophil # 2.43 X10^3/uL (2.7-7.7); Neutrophil % 53.3 % (47-70); POSITIVE COUNT NO; POSITIVE DIFFERENTIAL NO; POSITIVE MORPHOLOGY NO; Platelet Count 157 K/mm3 (150-450); RBC Distribution Width CV 14.2 % (11.6-14.6); RBC Distribution Width SD 46.5 fl (35.1-43.9); Red Blood Count 4.67 M/mm3 (4.6-6.2); White Blood Count 4.6 K/mm3 (4.4-11.0)
[2017-12-05 10:28] LABS: Absolute Lymphocyte Count 1.96 X10^3/ul (0.83-4.51); Absolute Neutrophil Count 2.1 X10^3/uL (2.0-7.7); Basophil# 0.01 X10^3/uL; Basophil% 0.2 % (0-1); Eosinophil# 0.15 X10^3/uL; Eosinophils% 3.1 % (0-5); Hematocrit 41.7 % (40-54); Hemoglobin 13.5 g/dl (13.0-16.5); Lymphocyte # 1.96 X10^3/ul (4.0); Lymphocyte % 40.8 % (19-41); Mean Corp Hgb Conc 32.4 g/gl (32-36); Mean Corpuscular Hgb 29.3 pg (27.0-32.0); Mean Corpuscular Volume 90.5 fL (80-94); Mean Platelet Vol. 9.6 fl (6.2-12.0); Monocyte# 0.53 X10^3/uL; Neutrophil # 2.14 X10^3/uL (2.7-7.7); Neutrophil % 44.7 % (47-70); Platelet Count 156 K/mm3 (150-450); RBC Distribution Width CV 14.3 % (11.6-14.6); RBC Distribution Width SD 46.8 fl (35.1-43.9); Red Blood Count 4.61 M/mm3 (4.6-6.2); White Blood Count 4.8 K/mm3 (4.4-11.0)
[2017-12-05 10:31] LABS: POSITIVE COUNT NO; POSITIVE DIFFERENTIAL NO; POSITIVE MORPHOLOGY NO
[2017-12-09 11:04] LABS: Absolute Lymphocyte Count 1.71 X10^3/ul (0.83-4.51); Absolute Neutrophil Count 1.9 X10^3/uL (2.0-7.7); Basophil# 0.01 X10^3/uL; Basophil% 0.2 % (0-1); Eosinophil# 0.12 X10^3/uL; Eosinophils% 2.8 % (0-5); Hematocrit 41.4 % (40-54); Hemoglobin 13.3 g/dl (13.0-16.5); Lymphocyte # 1.71 X10^3/ul (4.0); Lymphocyte % 39.7 % (19-41); Mean Corp Hgb Conc 32.1 g/gl (32-36); Mean Corpuscular Hgb 29.3 pg (27.0-32.0); Mean Corpuscular Volume 91.2 fL (80-94); Mean Platelet Vol. 9.7 fl (6.2-12.0); Monocyte% 13.9 % (0-10); Neutrophil # 1.86 X10^3/uL (2.7-7.7); Neutrophil % 43.2 % (47-70); Platelet Count 154 K/mm3 (150-450); RBC Distribution Width CV 14.2 % (11.6-14.6); RBC Distribution Width SD 47.1 fl (35.1-43.9); Red Blood Count 4.54 M/mm3 (4.6-6.2); White Blood Count 4.3 K/mm3 (4.4-11.0)
[2017-12-09 11:18] LABS: POSITIVE COUNT NO; POSITIVE DIFFERENTIAL NO; POSITIVE MORPHOLOGY NO
[2017-12-09 11:24] LABS: Valproic Acid (Depakene) Level 97 ug/mL (50-100)
[2017-12-09 11:25] LABS: ALB/GLOB Ratio 0.8 RATIO (0.9-2.4); AST(SGOT) 11 U/L (15-37); Alanine Aminotransfer ALT/SGPT 14 U/L (16-61); Albumin, Serum 3.4 g/dL (3.2-5.0); Alkaline Phosphatase 45 U/L (45-117); Anion Gap 7 (5-15); BUN 13 mg/dL (7-18); BUN/Creat Ratio 19.2 RATIO (10-20); Chloride 102 mmol/L (98-107); Creatinine, Serum 0.68 mg/dL (0.70-1.30); EST Glomerular Filtration Rate 141 mL/min (>60); Est Glom Filt Rate - Afr Amer 170 mL/min (>60); Globulin 4.1 g/dL (2.2-4.2); Glucose 96 mg/dL (74-106); Potassium 4.1 mmol/L (3.5-5.1); Protein, Total 7.5 g/dL (6.4-8.2); Sodium Level 136 mmol/L (136-145)
[2017-12-16 11:28] LABS: Absolute Lymphocyte Count 1.71 X10^3/ul (0.83-4.51); Absolute Neutrophil Count 2.2 X10^3/uL (2.0-7.7); Basophil# 0.01 X10^3/uL; Basophil% 0.2 % (0-1); Eosinophil# 0.14 X10^3/uL; Hematocrit 41.7 % (40-54); Hemoglobin 13.3 g/dl (13.0-16.5); Lymphocyte # 1.71 X10^3/ul (4.0); Lymphocyte % 36.5 % (19-41); Mean Corp Hgb Conc 31.9 g/gl (32-36); Mean Corpuscular Hgb 29.3 pg (27.0-32.0); Mean Corpuscular Volume 91.9 fL (80-94); Mean Platelet Vol. 9.5 fl (6.2-12.0); Monocyte% 12.8 % (0-10); Neutrophil % 47.1 % (47-70); Platelet Count 152 K/mm3 (150-450); RBC Distribution Width CV 14.2 % (11.6-14.6); RBC Distribution Width SD 47.8 fl (35.1-43.9); Red Blood Count 4.54 M/mm3 (4.6-6.2); White Blood Count 4.7 K/mm3 (4.4-11.0)
[2017-12-16 11:29] LABS: POSITIVE COUNT NO; POSITIVE DIFFERENTIAL NO; POSITIVE MORPHOLOGY NO
[2017-12-16 11:40] LABS: Valproic Acid (Depakene) Level 69 ug/mL (50-100)
[2017-12-16 11:44] LABS: ALB/GLOB Ratio 0.8 RATIO (0.9-2.4); AST(SGOT) 9 U/L (15-37); Alanine Aminotransfer ALT/SGPT 14 U/L (16-61); Albumin, Serum 3.4 g/dL (3.2-5.0); Alkaline Phosphatase 47 U/L (45-117); Anion Gap 4 (5-15); BUN 11 mg/dL (7-18); BUN/Creat Ratio 14.3 RATIO (10-20); Calcium,Total 9.3 mg/dL (8.5-10.1); Chloride 104 mmol/L (98-107); Creatinine, Serum 0.77 mg/dL (0.70-1.30); EST Glomerular Filtration Rate 122 mL/min (>60); Est Glom Filt Rate - Afr Amer 147 mL/min (>60); Globulin 4.3 g/dL (2.2-4.2); Glucose 84 mg/dL (74-106); Potassium 4.2 mmol/L (3.5-5.1); Protein, Total 7.7 g/dL (6.4-8.2); Sodium Level 139 mmol/L (136-145)
== END 2017-12-16 11:00 | disposition home or self-care (01) ==
LOC: LAB 10:08
PROVIDERS: Family Provider Family Medicine; PCP Family Medicine; Referring Provider Psychiatry & Neurology Child & Adolescent Psychiatry; Visit Provider Psychiatry & Neurology Child & Adolescent Psychiatry
DX: F31.81 Bipolar II disorder (principal)
CPT/HCPCS: 36415; 80053; 80164; 85025

== ENCOUNTER 2018-01-13 10:24 | Outpatient (RCR) | payer MEDICAID, SELFPAY ==
[2017-12-23 11:23] LABS: Absolute Lymphocyte Count 1.79 X10^3/ul (0.83-4.51); Absolute Neutrophil Count 2.4 X10^3/uL (2.0-7.7); Basophil# 0.02 X10^3/uL; Basophil% 0.4 % (0-1); Hematocrit 40.8 % (40-54); Hemoglobin 13.1 g/dl (13.0-16.5); Lymphocyte # 1.79 X10^3/ul (4.0); Lymphocyte % 36.7 % (19-41); Mean Corp Hgb Conc 32.1 g/gl (32-36); Mean Corpuscular Hgb 29.4 pg (27.0-32.0); Mean Corpuscular Volume 91.5 fL (80-94); Mean Platelet Vol. 9.5 fl (6.2-12.0); Monocyte# 0.58 X10^3/uL; Monocyte% 11.9 % (0-10); Neutrophil # 2.38 X10^3/uL (2.7-7.7); Neutrophil % 48.8 % (47-70); Platelet Count 170 K/mm3 (150-450); RBC Distribution Width CV 14.3 % (11.6-14.6); RBC Distribution Width SD 47.1 fl (35.1-43.9); Red Blood Count 4.46 M/mm3 (4.6-6.2); White Blood Count 4.9 K/mm3 (4.4-11.0)
[2017-12-23 11:31] LABS: POSITIVE COUNT NO; POSITIVE DIFFERENTIAL NO; POSITIVE MORPHOLOGY NO
[2017-12-31 12:40] LABS: Absolute Lymphocyte Count 1.76 X10^3/ul (0.83-4.51); Absolute Neutrophil Count 2.5 X10^3/uL (2.0-7.7); Basophil# 0.02 X10^3/uL; Basophil% 0.4 % (0-1); Eosinophil# 0.11 X10^3/uL; Eosinophils% 2.3 % (0-5); Hematocrit 42.7 % (40-54); Hemoglobin 13.5 g/dl (13.0-16.5); Lymphocyte # 1.76 X10^3/ul (4.0); Lymphocyte % 37.3 % (19-41); Mean Corp Hgb Conc 31.6 g/gl (32-36); Mean Corpuscular Hgb 29.2 pg (27.0-32.0); Mean Corpuscular Volume 92.4 fL (80-94); Mean Platelet Vol. 9.3 fl (6.2-12.0); Monocyte# 0.32 X10^3/uL; Monocyte% 6.8 % (0-10); Neutrophil # 2.51 X10^3/uL (2.7-7.7); Neutrophil % 53.2 % (47-70); Platelet Count 164 K/mm3 (150-450); RBC Distribution Width CV 14.1 % (11.6-14.6); RBC Distribution Width SD 47.2 fl (35.1-43.9); Red Blood Count 4.62 M/mm3 (4.6-6.2); White Blood Count 4.7 K/mm3 (4.4-11.0)
[2017-12-31 12:45] LABS: POSITIVE COUNT NO; POSITIVE DIFFERENTIAL NO; POSITIVE MORPHOLOGY NO
[2018-01-06 11:40] LABS: Absolute Lymphocyte Count 1.62 X10^3/ul (0.83-4.51); Basophil% 0.2 % (0-1); Differential Indicated SCAN CRITERIA MET; Eosinophils% 2.8 % (0-5); Hematocrit 41.9 % (40-54); Hemoglobin 13.3 g/dl (13.0-16.5); Lymphocyte # 1.62 X10^3/ul (4.0); Lymphocyte % 19.8 % (19-41); Mean Corp Hgb Conc 31.7 g/gl (32-36); Mean Corpuscular Hgb 29.6 pg (27.0-32.0); Mean Corpuscular Volume 93.3 fL (80-94); Mean Platelet Vol. 10.4 fl (6.2-12.0); Monocyte% 12.2 % (0-10); Neutrophil # 2.97 X10^3/uL (2.7-7.7); Neutrophil % 54.6 % (47-70); POSITIVE COUNT YES; POSITIVE DIFFERENTIAL NO; POSITIVE MORPHOLOGY NO; Platelet Count 152 K/mm3 (150-450); RBC Distribution Width CV 14.3 % (11.6-14.6); RBC Distribution Width SD 48.1 fl (35.1-43.9); Red Blood Count 4.49 M/mm3 (4.6-6.2); White Blood Count 5.4 K/mm3 (4.4-11.0)
[2018-01-06 11:41] LABS: Basophil# 0.01 X10^3/uL; Eosinophil# 0.15 X10^3/uL; Monocyte# 0.66 X10^3/uL
[2018-01-13 11:17] LABS: Absolute Lymphocyte Count 1.63 X10^3/ul (0.83-4.51); Absolute Neutrophil Count 2.9 X10^3/uL (2.0-7.7); Basophil# 0.02 X10^3/uL; Basophil% 0.4 % (0-1); Eosinophil# 0.22 X10^3/uL; Hematocrit 41.8 % (40-54); Hemoglobin 13.3 g/dl (13.0-16.5); Lymphocyte # 1.63 X10^3/ul (4.0); Lymphocyte % 29.4 % (19-41); Mean Corp Hgb Conc 31.8 g/gl (32-36); Mean Corpuscular Hgb 28.7 pg (27.0-32.0); Mean Corpuscular Volume 90.3 fL (80-94); Mean Platelet Vol. 9.1 fl (6.2-12.0); Monocyte# 0.78 X10^3/uL; Monocyte% 14.1 % (0-10); Neutrophil # 2.89 X10^3/uL (2.7-7.7); Neutrophil % 51.9 % (47-70); POSITIVE COUNT NO; POSITIVE DIFFERENTIAL NO; POSITIVE MORPHOLOGY NO; Platelet Count 155 K/mm3 (150-450); RBC Distribution Width CV 14.1 % (11.6-14.6); RBC Distribution Width SD 46.2 fl (35.1-43.9); Red Blood Count 4.63 M/mm3 (4.6-6.2); White Blood Count 5.6 K/mm3 (4.4-11.0)
[2018-01-13 13:08] LABS: Valproic Acid (Depakene) Level 75 ug/mL (50-100)
[2018-01-13 13:14] LABS: ALB/GLOB Ratio 0.9 RATIO (0.9-2.4); AST(SGOT) 11 U/L (15-37); Alanine Aminotransfer ALT/SGPT 14 U/L (16-61); Albumin, Serum 3.5 g/dL (3.2-5.0); Alkaline Phosphatase 47 U/L (45-117); Anion Gap 7 (5-15); BUN 10 mg/dL (7-18); BUN/Creat Ratio 15.6 RATIO (10-20); Calcium,Total 9.2 mg/dL (8.5-10.1); Chloride 104 mmol/L (98-107); Creatinine, Serum 0.64 mg/dL (0.70-1.30); EST Glomerular Filtration Rate 150 mL/min (>60); Est Glom Filt Rate - Afr Amer 182 mL/min (>60); Globulin 3.9 g/dL (2.2-4.2); Glucose 80 mg/dL (74-106); Potassium 4.4 mmol/L (3.5-5.1); Protein, Total 7.4 g/dL (6.4-8.2); Sodium Level 139 mmol/L (136-145)
== END 2018-01-20 09:52 | disposition home or self-care (01) ==
LOC: LAB 10:24
PROVIDERS: Family Provider Family Medicine; PCP Family Medicine; Referring Provider Psychiatry & Neurology Child & Adolescent Psychiatry; Visit Provider Psychiatry & Neurology Child & Adolescent Psychiatry
DX: F31.81 Bipolar II disorder (principal)
CPT/HCPCS: 36415; 80053; 80164; 85025

== ENCOUNTER 2018-02-17 09:05 | Outpatient (RCR) | payer MEDICAID, SELFPAY ==
[2018-01-20 10:46] LABS: Absolute Lymphocyte Count 1.89 X10^3/ul (0.83-4.51); Basophil# 0.02 X10^3/uL; Basophil% 0.3 % (0-1); Eosinophil# 0.21 X10^3/uL; Eosinophils% 3.5 % (0-5); Hematocrit 42.9 % (40-54); Hemoglobin 13.9 g/dl (13.0-16.5); Lymphocyte # 1.89 X10^3/ul (4.0); Lymphocyte % 31.4 % (19-41); Mean Corp Hgb Conc 32.4 g/gl (32-36); Mean Corpuscular Hgb 29.4 pg (27.0-32.0); Mean Corpuscular Volume 90.7 fL (80-94); Mean Platelet Vol. 9.7 fl (6.2-12.0); Neutrophil # 2.96 X10^3/uL (2.7-7.7); Neutrophil % 49.3 % (47-70); Platelet Count 155 K/mm3 (150-450); RBC Distribution Width CV 14.1 % (11.6-14.6); RBC Distribution Width SD 46.4 fl (35.1-43.9); Red Blood Count 4.73 M/mm3 (4.6-6.2)
[2018-01-20 10:51] LABS: POSITIVE COUNT NO; POSITIVE DIFFERENTIAL NO; POSITIVE MORPHOLOGY NO
[2018-01-27 10:24] LABS: Absolute Lymphocyte Count 2.05 X10^3/ul (0.83-4.51); Absolute Neutrophil Count 4.8 X10^3/uL (2.0-7.7); Basophil# 0.02 X10^3/uL; Basophil% 0.3 % (0-1); Eosinophil# 0.18 X10^3/uL; Eosinophils% 2.3 % (0-5); Hematocrit 41.4 % (40-54); Hemoglobin 13.8 g/dl (13.0-16.5); Lymphocyte # 2.05 X10^3/ul (4.0); Lymphocyte % 26.4 % (19-41); Mean Corp Hgb Conc 33.3 g/gl (32-36); Mean Corpuscular Hgb 30.1 pg (27.0-32.0); Mean Corpuscular Volume 90.2 fL (80-94); Mean Platelet Vol. 9.6 fl (6.2-12.0); Monocyte# 0.71 X10^3/uL; Monocyte% 9.1 % (0-10); Neutrophil # 4.79 X10^3/uL (2.7-7.7); Neutrophil % 61.6 % (47-70); Platelet Count 173 K/mm3 (150-450); RBC Distribution Width CV 13.8 % (11.6-14.6); RBC Distribution Width SD 45.6 fl (35.1-43.9); Red Blood Count 4.59 M/mm3 (4.6-6.2); White Blood Count 7.8 K/mm3 (4.4-11.0)
[2018-01-27 10:25] LABS: POSITIVE COUNT NO; POSITIVE DIFFERENTIAL NO; POSITIVE MORPHOLOGY NO
[2018-02-03 09:45] LABS: Absolute Neutrophil Count 2.7 X10^3/uL (2.0-7.7); Basophil# 0.01 X10^3/uL; Basophil% 0.2 % (0-1); Eosinophil# 0.26 X10^3/uL; Eosinophils% 4.8 % (0-5); Hematocrit 41.3 % (40-54); Hemoglobin 13.5 g/dl (13.0-16.5); Lymphocyte % 33.3 % (19-41); Mean Corp Hgb Conc 32.7 g/gl (32-36); Mean Corpuscular Hgb 29.5 pg (27.0-32.0); Mean Corpuscular Volume 90.4 fL (80-94); Mean Platelet Vol. 9.2 fl (6.2-12.0); Monocyte# 0.67 X10^3/uL; Monocyte% 12.4 % (0-10); Neutrophil # 2.66 X10^3/uL (2.7-7.7); Neutrophil % 49.1 % (47-70); Platelet Count 161 K/mm3 (150-450); RBC Distribution Width CV 13.9 % (11.6-14.6); RBC Distribution Width SD 45.6 fl (35.1-43.9); Red Blood Count 4.57 M/mm3 (4.6-6.2); White Blood Count 5.4 K/mm3 (4.4-11.0)
[2018-02-03 09:46] LABS: POSITIVE COUNT NO; POSITIVE DIFFERENTIAL NO; POSITIVE MORPHOLOGY NO
[2018-02-03 10:28] LABS: Valproic Acid (Depakene) Level 72 ug/mL (50-100)
[2018-02-03 10:29] LABS: ALB/GLOB Ratio 0.8 RATIO (0.9-2.4); AST(SGOT) 9 U/L (15-37); Alanine Aminotransfer ALT/SGPT 13 U/L (16-61); Albumin, Serum 3.3 g/dL (3.2-5.0); Alkaline Phosphatase 43 U/L (45-117); Anion Gap 9 (5-15); BUN 13 mg/dL (7-18); BUN/Creat Ratio 16.4 RATIO (10-20); Chloride 104 mmol/L (98-107); Creatinine, Serum 0.79 mg/dL (0.70-1.30); EST Glomerular Filtration Rate 117 mL/min (>60); Est Glom Filt Rate - Afr Amer 142 mL/min (>60); Globulin 3.9 g/dL (2.2-4.2); Glucose 92 mg/dL (74-106); Potassium 4.3 mmol/L (3.5-5.1); Protein, Total 7.2 g/dL (6.4-8.2); Sodium Level 142 mmol/L (136-145)
[2018-02-13 10:45] LABS: Absolute Lymphocyte Count 1.75 X10^3/ul (0.83-4.51); Absolute Neutrophil Count 2.8 X10^3/uL (2.0-7.7); Basophil# 0.02 X10^3/uL; Basophil% 0.4 % (0-1); Eosinophil# 0.18 X10^3/uL; Eosinophils% 3.3 % (0-5); Hematocrit 40.3 % (40-54); Hemoglobin 12.9 g/dl (13.0-16.5); Lymphocyte # 1.75 X10^3/ul (4.0); Lymphocyte % 31.9 % (19-41); Mean Corpuscular Hgb 28.9 pg (27.0-32.0); Mean Corpuscular Volume 90.4 fL (80-94); Mean Platelet Vol. 9.5 fl (6.2-12.0); Monocyte# 0.75 X10^3/uL; Monocyte% 13.7 % (0-10); Neutrophil # 2.77 X10^3/uL (2.7-7.7); Neutrophil % 50.5 % (47-70); Platelet Count 157 K/mm3 (150-450); RBC Distribution Width CV 14.2 % (11.6-14.6); RBC Distribution Width SD 46.9 fl (35.1-43.9); Red Blood Count 4.46 M/mm3 (4.6-6.2); White Blood Count 5.5 K/mm3 (4.4-11.0)
[2018-02-13 10:47] LABS: POSITIVE COUNT NO; POSITIVE DIFFERENTIAL NO; POSITIVE MORPHOLOGY NO
[2018-02-13 11:14] LABS: ALB/GLOB Ratio 0.8 RATIO (0.9-2.4); AST(SGOT) 12 U/L (15-37); Alanine Aminotransfer ALT/SGPT 14 U/L (16-61); Albumin, Serum 3.4 g/dL (3.2-5.0); Alkaline Phosphatase 44 U/L (45-117); Anion Gap 7 (5-15); BUN 14 mg/dL (7-18); BUN/Creat Ratio 19.5 RATIO (10-20); Calcium,Total 9.4 mg/dL (8.5-10.1); Chloride 107 mmol/L (98-107); Creatinine, Serum 0.72 mg/dL (0.70-1.30); EST Glomerular Filtration Rate 131 mL/min (>60); Est Glom Filt Rate - Afr Amer 159 mL/min (>60); Glucose 84 mg/dL (74-106); Potassium 4.2 mmol/L (3.5-5.1); Protein, Total 7.4 g/dL (6.4-8.2); Sodium Level 140 mmol/L (136-145)
[2018-02-13 11:16] LABS: Valproic Acid (Depakene) Level 74 ug/mL (50-100)
[2018-02-17 10:24] LABS: Absolute Lymphocyte Count 1.77 X10^3/ul (0.83-4.51); Absolute Neutrophil Count 2.9 X10^3/uL (2.0-7.7); Basophil# 0.02 X10^3/uL; Basophil% 0.4 % (0-1); Eosinophil# 0.26 X10^3/uL; Eosinophils% 4.6 % (0-5); Hematocrit 42.2 % (40-54); Hemoglobin 13.5 g/dl (13.0-16.5); Lymphocyte # 1.77 X10^3/ul (4.0); Lymphocyte % 31.2 % (19-41); Mean Corpuscular Hgb 29.1 pg (27.0-32.0); Mean Corpuscular Volume 90.9 fL (80-94); Mean Platelet Vol. 9.6 fl (6.2-12.0); Monocyte# 0.68 X10^3/uL; Neutrophil # 2.93 X10^3/uL (2.7-7.7); Neutrophil % 51.6 % (47-70); Platelet Count 155 K/mm3 (150-450); RBC Distribution Width SD 46.7 fl (35.1-43.9); Red Blood Count 4.64 M/mm3 (4.6-6.2); White Blood Count 5.7 K/mm3 (4.4-11.0)
[2018-02-17 10:26] LABS: POSITIVE COUNT NO; POSITIVE DIFFERENTIAL NO; POSITIVE MORPHOLOGY NO
== END 2018-02-17 10:05 | disposition home or self-care (01) ==
LOC: LAB 09:05
PROVIDERS: Family Provider Family Medicine; PCP Family Medicine; Referring Provider Psychiatry & Neurology Child & Adolescent Psychiatry; Visit Provider Psychiatry & Neurology Child & Adolescent Psychiatry
DX: F31.81 Bipolar II disorder (principal)
CPT/HCPCS: 36415; 80053; 80164; 85025

== ENCOUNTER 2018-03-17 09:08 | Outpatient (RCR) | payer MEDICAID, SELFPAY ==
[2018-02-24 09:53] LABS: Absolute Lymphocyte Count 2.16 X10^3/ul (0.83-4.51); Absolute Neutrophil Count 3.8 X10^3/uL (2.0-7.7); Basophil# 0.02 X10^3/uL; Basophil% 0.3 % (0-1); Eosinophil# 0.21 X10^3/uL; Eosinophils% 2.9 % (0-5); Hematocrit 42.7 % (40-54); Hemoglobin 13.5 g/dl (13.0-16.5); Lymphocyte # 2.16 X10^3/ul (4.0); Lymphocyte % 30.2 % (19-41); Mean Corp Hgb Conc 31.6 g/gl (32-36); Mean Corpuscular Hgb 28.8 pg (27.0-32.0); Mean Corpuscular Volume 91.2 fL (80-94); Mean Platelet Vol. 9.4 fl (6.2-12.0); Monocyte% 12.6 % (0-10); Neutrophil # 3.84 X10^3/uL (2.7-7.7); Neutrophil % 53.7 % (47-70); Platelet Count 164 K/mm3 (150-450); RBC Distribution Width CV 14.5 % (11.6-14.6); RBC Distribution Width SD 48.4 fl (35.1-43.9); Red Blood Count 4.68 M/mm3 (4.6-6.2); White Blood Count 7.2 K/mm3 (4.4-11.0)
[2018-02-24 09:54] LABS: POSITIVE COUNT NO; POSITIVE DIFFERENTIAL NO; POSITIVE MORPHOLOGY NO
[2018-03-03 10:21] LABS: Absolute Lymphocyte Count 1.99 X10^3/ul (0.83-4.51); Absolute Neutrophil Count 2.6 X10^3/uL (2.0-7.7); Basophil# 0.02 X10^3/uL; Basophil% 0.4 % (0-1); Eosinophil# 0.22 X10^3/uL; Eosinophils% 3.9 % (0-5); Hematocrit 42.8 % (40-54); Hemoglobin 13.3 g/dl (13.0-16.5); Lymphocyte # 1.99 X10^3/ul (4.0); Mean Corp Hgb Conc 31.1 g/gl (32-36); Mean Corpuscular Hgb 28.9 pg (27.0-32.0); Mean Corpuscular Volume 92.8 fL (80-94); Mean Platelet Vol. 9.6 fl (6.2-12.0); Monocyte% 14.1 % (0-10); Neutrophil # 2.64 X10^3/uL (2.7-7.7); Neutrophil % 46.4 % (47-70); Platelet Count 170 K/mm3 (150-450); RBC Distribution Width CV 14.3 % (11.6-14.6); RBC Distribution Width SD 48.2 fl (35.1-43.9); Red Blood Count 4.61 M/mm3 (4.6-6.2); White Blood Count 5.7 K/mm3 (4.4-11.0)
[2018-03-03 10:24] LABS: POSITIVE COUNT NO; POSITIVE DIFFERENTIAL NO; POSITIVE MORPHOLOGY NO
[2018-03-12 09:50] LABS: Absolute Lymphocyte Count 1.81 X10^3/ul (0.83-4.51); Absolute Neutrophil Count 4.5 X10^3/uL (2.0-7.7); Basophil# 0.02 X10^3/uL; Basophil% 0.3 % (0-1); Eosinophil# 0.14 X10^3/uL; Eosinophils% 1.9 % (0-5); Hematocrit 41.8 % (40-54); Hemoglobin 13.2 g/dl (13.0-16.5); Lymphocyte # 1.81 X10^3/ul (4.0); Lymphocyte % 24.3 % (19-41); Mean Corp Hgb Conc 31.6 g/gl (32-36); Mean Corpuscular Volume 91.9 fL (80-94); Mean Platelet Vol. 9.8 fl (6.2-12.0); Monocyte# 1.02 X10^3/uL; Monocyte% 13.7 % (0-10); Neutrophil # 4.45 X10^3/uL (2.7-7.7); Neutrophil % 59.5 % (47-70); Platelet Count 152 K/mm3 (150-450); RBC Distribution Width CV 14.2 % (11.6-14.6); Red Blood Count 4.55 M/mm3 (4.6-6.2); White Blood Count 7.5 K/mm3 (4.4-11.0)
[2018-03-12 09:53] LABS: POSITIVE COUNT NO; POSITIVE DIFFERENTIAL NO; POSITIVE MORPHOLOGY NO
[2018-03-17 10:18] LABS: Absolute Lymphocyte Count 1.86 X10^3/ul (0.83-4.51); Basophil# 0.02 X10^3/uL; Basophil% 0.4 % (0-1); Eosinophil# 0.11 X10^3/uL; Hematocrit 43.6 % (40-54); Lymphocyte # 1.86 X10^3/ul (4.0); Lymphocyte % 33.4 % (19-41); Mean Corp Hgb Conc 32.1 g/gl (32-36); Mean Corpuscular Hgb 29.5 pg (27.0-32.0); Mean Corpuscular Volume 91.8 fL (80-94); Mean Platelet Vol. 9.7 fl (6.2-12.0); Monocyte# 0.62 X10^3/uL; Monocyte% 11.1 % (0-10); Neutrophil # 2.95 X10^3/uL (2.7-7.7); Neutrophil % 52.9 % (47-70); Platelet Count 153 K/mm3 (150-450); RBC Distribution Width SD 46.5 fl (35.1-43.9); Red Blood Count 4.75 M/mm3 (4.6-6.2); White Blood Count 5.6 K/mm3 (4.4-11.0)
[2018-03-17 10:20] LABS: POSITIVE COUNT NO; POSITIVE DIFFERENTIAL NO; POSITIVE MORPHOLOGY NO
[2018-03-17 10:56] LABS: Valproic Acid (Depakene) Level 85 ug/mL (50-100)
[2018-03-17 11:00] LABS: ALB/GLOB Ratio 0.8 RATIO (0.9-2.4); AST(SGOT) 17 U/L (15-37); Alanine Aminotransfer ALT/SGPT 17 U/L (16-61); Albumin, Serum 3.5 g/dL (3.2-5.0); Alkaline Phosphatase 47 U/L (45-117); Anion Gap 9 (5-15); BUN 19 mg/dL (7-18); BUN/Creat Ratio 22.1 RATIO (10-20); Calcium,Total 9.4 mg/dL (8.5-10.1); Chloride 108 mmol/L (98-107); Creatinine, Serum 0.86 mg/dL (0.70-1.30); EST Glomerular Filtration Rate 107 mL/min (>60); Est Glom Filt Rate - Afr Amer 129 mL/min (>60); Globulin 4.4 g/dL (2.2-4.2); Glucose 89 mg/dL (74-106); Potassium 4.4 mmol/L (3.5-5.1); Protein, Total 7.9 g/dL (6.4-8.2); Sodium Level 142 mmol/L (136-145)
== END 2018-03-17 10:00 | disposition home or self-care (01) ==
LOC: LAB 09:08
PROVIDERS: Family Provider Family Medicine; PCP Family Medicine; Referring Provider Psychiatry & Neurology Child & Adolescent Psychiatry; Visit Provider Psychiatry & Neurology Child & Adolescent Psychiatry
DX: F31.81 Bipolar II disorder (principal)
CPT/HCPCS: 36415; 80053; 80164; 85025

== ENCOUNTER 2018-04-14 09:13 | Outpatient (RCR) | payer MEDICAID, SELFPAY ==
[2018-03-24 09:45] LABS: Absolute Lymphocyte Count 1.77 X10^3/ul (0.83-4.51); Absolute Neutrophil Count 3.4 X10^3/uL (2.0-7.7); Basophil# 0.02 X10^3/uL; Basophil% 0.3 % (0-1); Eosinophil# 0.16 X10^3/uL; Eosinophils% 2.6 % (0-5); Hematocrit 41.4 % (40-54); Hemoglobin 13.5 g/dl (13.0-16.5); Lymphocyte # 1.77 X10^3/ul (4.0); Lymphocyte % 29.2 % (19-41); Mean Corp Hgb Conc 32.6 g/gl (32-36); Mean Corpuscular Hgb 29.4 pg (27.0-32.0); Mean Corpuscular Volume 90.2 fL (80-94); Mean Platelet Vol. 9.8 fl (6.2-12.0); Monocyte# 0.72 X10^3/uL; Monocyte% 11.9 % (0-10); Neutrophil # 3.37 X10^3/uL (2.7-7.7); Neutrophil % 55.7 % (47-70); Platelet Count 155 K/mm3 (150-450); RBC Distribution Width CV 13.8 % (11.6-14.6); RBC Distribution Width SD 45.7 fl (35.1-43.9); Red Blood Count 4.59 M/mm3 (4.6-6.2); White Blood Count 6.1 K/mm3 (4.4-11.0)
[2018-03-24 09:48] LABS: POSITIVE COUNT NO; POSITIVE DIFFERENTIAL NO; POSITIVE MORPHOLOGY NO
[2018-03-31 11:09] LABS: Absolute Neutrophil Count 2.2 X10^3/uL (2.0-7.7); Basophil# 0.02 X10^3/uL; Basophil% 0.4 % (0-1); Eosinophil# 0.19 X10^3/uL; Eosinophils% 3.8 % (0-5); Hematocrit 43.7 % (40-54); Lymphocyte % 41.8 % (19-41); Mean Corpuscular Hgb 29.1 pg (27.0-32.0); Mean Corpuscular Volume 90.9 fL (80-94); Mean Platelet Vol. 9.7 fl (6.2-12.0); Monocyte# 0.53 X10^3/uL; Monocyte% 10.6 % (0-10); Neutrophil # 2.18 X10^3/uL (2.7-7.7); Neutrophil % 43.4 % (47-70); Platelet Count 171 K/mm3 (150-450); RBC Distribution Width CV 14.3 % (11.6-14.6); RBC Distribution Width SD 47.1 fl (35.1-43.9); Red Blood Count 4.81 M/mm3 (4.6-6.2)
[2018-03-31 11:13] LABS: POSITIVE COUNT NO; POSITIVE DIFFERENTIAL NO; POSITIVE MORPHOLOGY NO
[2018-04-08 09:46] LABS: Absolute Lymphocyte Count 1.86 X10^3/ul (0.83-4.51); Absolute Neutrophil Count 1.8 X10^3/uL (2.0-7.7); Basophil# 0.01 X10^3/uL; Basophil% 0.2 % (0-1); Eosinophil# 0.11 X10^3/uL; Eosinophils% 2.5 % (0-5); Hematocrit 42.6 % (40-54); Hemoglobin 13.5 g/dl (13.0-16.5); Lymphocyte # 1.86 X10^3/ul (4.0); Lymphocyte % 42.8 % (19-41); Mean Corp Hgb Conc 31.7 g/gl (32-36); Mean Corpuscular Hgb 29.2 pg (27.0-32.0); Mean Platelet Vol. 9.8 fl (6.2-12.0); Monocyte# 0.53 X10^3/uL; Monocyte% 12.2 % (0-10); Neutrophil # 1.84 X10^3/uL (2.7-7.7); Neutrophil % 42.3 % (47-70); POSITIVE COUNT NO; POSITIVE DIFFERENTIAL NO; POSITIVE MORPHOLOGY NO; Platelet Count 145 K/mm3 (150-450); RBC Distribution Width CV 14.9 % (11.6-14.6); RBC Distribution Width SD 50.2 fl (35.1-43.9); Red Blood Count 4.63 M/mm3 (4.6-6.2); White Blood Count 4.4 K/mm3 (4.4-11.0)
[2018-04-14 09:36] LABS: Absolute Lymphocyte Count 1.58 X10^3/ul (0.83-4.51); Absolute Neutrophil Count 1.1 X10^3/uL (2.0-7.7); Basophil# 0.02 X10^3/uL; Basophil% 0.6 % (0-1); Eosinophil# 0.15 X10^3/uL; Eosinophils% 4.7 % (0-5); Hematocrit 45.2 % (40-54); Hemoglobin 13.9 g/dl (13.0-16.5); Lymphocyte # 1.58 X10^3/ul (4.0); Lymphocyte % 49.1 % (19-41); Mean Corp Hgb Conc 30.8 g/gl (32-36); Mean Corpuscular Hgb 28.4 pg (27.0-32.0); Mean Corpuscular Volume 92.4 fL (80-94); Monocyte# 0.39 X10^3/uL; Monocyte% 12.1 % (0-10); Neutrophil # 1.07 X10^3/uL (2.7-7.7); Neutrophil % 33.2 % (47-70); Platelet Count 141 K/mm3 (150-450); RBC Distribution Width CV 14.8 % (11.6-14.6); RBC Distribution Width SD 49.9 fl (35.1-43.9); Red Blood Count 4.89 M/mm3 (4.6-6.2); White Blood Count 3.2 K/mm3 (4.4-11.0)
[2018-04-14 09:39] LABS: POSITIVE COUNT NO; POSITIVE DIFFERENTIAL NO; POSITIVE MORPHOLOGY NO
[2018-04-14 10:02] LABS: Valproic Acid (Depakene) Level 90 ug/mL (50-100)
[2018-04-14 10:06] LABS: ALB/GLOB Ratio 0.9 RATIO (0.9-2.4); AST(SGOT) 18 U/L (15-37); Alanine Aminotransfer ALT/SGPT 18 U/L (16-61); Albumin, Serum 3.7 g/dL (3.2-5.0); Alkaline Phosphatase 50 U/L (45-117); Anion Gap 8 (5-15); BUN 17 mg/dL (7-18); BUN/Creat Ratio 18.9 RATIO (10-20); Chloride 107 mmol/L (98-107); EST Glomerular Filtration Rate 101 mL/min (>60); Est Glom Filt Rate - Afr Amer 122 mL/min (>60); Globulin 4.3 g/dL (2.2-4.2); Glucose 90 mg/dL (74-106); Potassium 4.6 mmol/L (3.5-5.1); Sodium Level 143 mmol/L (136-145)
== END 2018-04-17 14:25 | disposition home or self-care (01) ==
LOC: LAB 09:13
PROVIDERS: Family Provider Family Medicine; PCP Family Medicine; Referring Provider Psychiatry & Neurology Child & Adolescent Psychiatry; Visit Provider Psychiatry & Neurology Child & Adolescent Psychiatry
DX: F31.81 Bipolar II disorder (principal)
CPT/HCPCS: 36415; 80053; 80164; 85025

== ENCOUNTER 2018-04-18 05:41 | Emergency (ER) | payer MEDICAID, SELFPAY ==
[2018-04-18 05:42] VITALS: BP 158/88; PULSE 118; RESP 18; TEMP 37.4; O2SAT 92; BMI 34.8
--- NOTE | 2018-04-18 05:53 | ED.VISSUMM ---
- ER Visit Summary Date of Service: 04/18/18 Chief Complaint: [] Chills fever for 2 days as well as sore throat History of Present Illness: The patient is a 37 M with the above symptoms. He never actually took his temperature. He has a dry cough. He said chills and Reiger's and one episode of emesis this morning. No flu shot. No home treatment. Physical Examination: Vital signs reviewed General: Well-nourished well-developed Head: Normocephalic atraumatic Eyes: Pupils equal round and reactive to light extraocular movements intact ENT: TMs clear no hemotympanum no trauma Neck: Nontender full range of motion Cardiovascular: Regular cardia with normal rhythm no murmurs normal S1-S2 Respiratory: No distress clear to auscultation bilaterally chest nontender Abdomen: Soft nontender nondistended normal bowel sounds no masses Back: Nontender no CVA tenderness Extremities: Nontender active range of motion ?4 extremities no trauma Skin: Normal color no trauma Neuro alert oriented cranial nerves II through XII intact normal strength sensation reflexes Test Results: [] Emergency Department Course and Treatment: [] Resting comfortably. I feel he has influenza. Chest x-ray obtained. Given Tylenol and Zofran. Chest x-ray shows prominent bronchial markings without infiltrate. At this time I think this is viral in nature and will have to run its course. Family will continue Tylenol and will be given Zofran prescription for home. Treatment Plan: [] Disposition: [] Impression: [] Influenza-like illness This note was generated with [employer] dictation software. It may contain incorrect words, spelling, and punctuation that were not noted in review of the chart prior to signing ED Disposition - Plan for ED Patient: Referrals: Carlo Wellington DO [Primary Care Provider] -
[2018-04-18] MEDS: Acetaminophen 500 MG Tablet 1000 MG PO (05:59)
[2018-04-18] MEDS: Ondansetron ODT 4 MG Tablet 8 MG PO (05:59)
--- NOTE | 2018-04-18 06:20 | RAD_ITS ---
STUDY: X-RAY CHEST REASON FOR EXAM: Male, 37 years old. Fever, chills and shaking. TECHNIQUE: PA and lateral views of the chest. COMPARISON: Prior comparison studies are not available for review at this time. FINDINGS: Cardiac monitoring leads are present. The lungs are underexpanded with crowding of bronchovascular markings. There is no demonstrated pleural abnormality. There is borderline cardiomegaly. There is prominence of the right hilar area. There may also be some prominence of left hilar area. This may be the result of adenopathy or airspace disease. There is prominence of the pulmonary hilar arteries without peripheral pulmonary vascular congestion. There is atherosclerotic tortuosity of the aortic arch and descending thoracic aorta. Normal visualized thoracic spine. Normal visualized ribs, clavicles, and shoulders. There is no demonstrated abnormality of the visualized soft tissue structures of the upper abdomen. RAD/Chest PA and Lateral IMPRESSION: 1. Expiratory chest radiograph with findings suggestive of pulmonary congestion. 2. Questionable bilateral perihilar airspace disease and/or lymphadenopathy. Electronically Signed: Ingrid Pedraza MD at 6:45 EST , Service support ,
--- NOTE | 2018-04-18 06:50 | ED.DEP ---
ED Disposition - Plan for ED Patient: Disposition: Home or Assisted Living Instructions: ED Flu Prescriptions: Ondansetron [Zofran Odt] 4 mg PO Q8H PRN PRN #10 tab PRN Reason: Nausea Referrals: Carlo Wellington DO [Primary Care Provider] -
[2018-04-18 06:57] VITALS: BP 159/89; PULSE 88; RESP 18
== END 2018-04-18 07:04 | disposition home or self-care (01) ==
PROVIDERS: Emergency Provider Emergency Medicine; Family Provider Family Medicine; PCP Family Medicine
DX: J11.1 Influenza due to unidentified influenza virus with other respiratory manifestations (principal)
CPT/HCPCS: 71046; 99285

== ENCOUNTER 2018-05-12 09:33 | Outpatient (RCR) | payer MEDICAID, SELFPAY ==
[2018-04-28 09:53] LABS: Absolute Lymphocyte Count 1.71 X10^3/ul (0.83-4.51); Absolute Neutrophil Count 2.9 X10^3/uL (2.0-7.7); Basophil# 0.02 X10^3/uL; Basophil% 0.3 % (0-1); Eosinophil# 0.19 X10^3/uL; Eosinophils% 3.3 % (0-5); Hematocrit 42.5 % (40-54); Hemoglobin 13.3 g/dl (13.0-16.5); Lymphocyte # 1.71 X10^3/ul (4.0); Lymphocyte % 29.6 % (19-41); Mean Corp Hgb Conc 31.3 g/gl (32-36); Mean Corpuscular Hgb 28.9 pg (27.0-32.0); Mean Corpuscular Volume 92.2 fL (80-94); Mean Platelet Vol. 9.5 fl (6.2-12.0); Monocyte% 15.6 % (0-10); Neutrophil # 2.92 X10^3/uL (2.7-7.7); Neutrophil % 50.5 % (47-70); Platelet Count 158 K/mm3 (150-450); RBC Distribution Width CV 15.1 % (11.6-14.6); RBC Distribution Width SD 49.3 fl (35.1-43.9); Red Blood Count 4.61 M/mm3 (4.6-6.2); White Blood Count 5.8 K/mm3 (4.4-11.0)
[2018-04-28 09:58] LABS: POSITIVE COUNT NO; POSITIVE DIFFERENTIAL NO; POSITIVE MORPHOLOGY NO
[2018-05-05 09:38] LABS: Absolute Lymphocyte Count 1.69 X10^3/ul (0.83-4.51); Absolute Neutrophil Count 1.1 X10^3/uL (2.0-7.7); Basophil# 0.02 X10^3/uL; Basophil% 0.6 % (0-1); Eosinophil# 0.19 X10^3/uL; Eosinophils% 5.5 % (0-5); Hemoglobin 13.7 g/dl (13.0-16.5); Lymphocyte # 1.69 X10^3/ul (4.0); Lymphocyte % 48.7 % (19-41); Mean Corp Hgb Conc 31.9 g/gl (32-36); Mean Corpuscular Hgb 29.3 pg (27.0-32.0); Mean Corpuscular Volume 91.9 fL (80-94); Mean Platelet Vol. 10.4 fl (6.2-12.0); Monocyte# 0.46 X10^3/uL; Monocyte% 13.3 % (0-10); Neutrophil % 31.6 % (47-70); Platelet Count 145 K/mm3 (150-450); RBC Distribution Width CV 14.9 % (11.6-14.6); Red Blood Count 4.68 M/mm3 (4.6-6.2); White Blood Count 3.5 K/mm3 (4.4-11.0)
[2018-05-05 09:39] LABS: POSITIVE COUNT NO; POSITIVE DIFFERENTIAL NO; POSITIVE MORPHOLOGY NO
[2018-05-12 09:54] LABS: Absolute Neutrophil Count 0.9 X10^3/uL (2.0-7.7); Basophil# 0.02 X10^3/uL; Basophil% 0.6 % (0-1); Eosinophil# 0.17 X10^3/uL; Eosinophils% 5.3 % (0-5); Hematocrit 44.4 % (40-54); Hemoglobin 14.1 g/dl (13.0-16.5); Lymphocyte % 56.3 % (19-41); Mean Corp Hgb Conc 31.8 g/gl (32-36); Mean Corpuscular Hgb 28.8 pg (27.0-32.0); Mean Corpuscular Volume 90.6 fL (80-94); Mean Platelet Vol. 9.8 fl (6.2-12.0); Monocyte# 0.35 X10^3/uL; Monocyte% 10.9 % (0-10); Neutrophil # 0.85 X10^3/uL (2.7-7.7); Neutrophil % 26.6 % (47-70); Platelet Count 144 K/mm3 (150-450); RBC Distribution Width CV 15.4 % (11.6-14.6); RBC Distribution Width SD 50.9 fl (35.1-43.9); White Blood Count 3.2 K/mm3 (4.4-11.0)
[2018-05-12 09:57] LABS: Differential Indicated SCAN CRITERIA MET; POSITIVE COUNT NO; POSITIVE DIFFERENTIAL YES; POSITIVE MORPHOLOGY NO
[2018-05-12 10:13] LABS: ALB/GLOB Ratio 0.9 RATIO (0.9-2.4); AST(SGOT) 30 U/L (15-37); Alanine Aminotransfer ALT/SGPT 24 U/L (16-61); Albumin, Serum 3.8 g/dL (3.2-5.0); Alkaline Phosphatase 47 U/L (45-117); Anion Gap 4 (5-15); BUN 14 mg/dL (7-18); Calcium,Total 9.2 mg/dL (8.5-10.1); Chloride 106 mmol/L (98-107); EST Glomerular Filtration Rate 90 mL/min (>60); Est Glom Filt Rate - Afr Amer 108 mL/min (>60); Globulin 4.1 g/dL (2.2-4.2); Glucose 97 mg/dL (74-106); Potassium 4.2 mmol/L (3.5-5.1); Protein, Total 7.9 g/dL (6.4-8.2); Sodium Level 140 mmol/L (136-145)
[2018-05-12 10:22] LABS: Valproic Acid (Depakene) Level 106 ug/mL (50-100)
== END 2018-05-12 10:00 | disposition home or self-care (01) ==
LOC: LAB 09:33
PROVIDERS: Family Provider Family Medicine; PCP Family Medicine; Referring Provider Psychiatry & Neurology Child & Adolescent Psychiatry; Visit Provider Psychiatry & Neurology Child & Adolescent Psychiatry
DX: F31.81 Bipolar II disorder (principal)
CPT/HCPCS: 36415; 80053; 80164; 85025

== ENCOUNTER 2018-06-17 09:27 | Outpatient (RCR) | payer MEDICAID, SELFPAY ==
[2018-05-19 09:59] LABS: Absolute Lymphocyte Count 1.87 X10^3/ul (0.83-4.51); Absolute Neutrophil Count 1.4 X10^3/uL (2.0-7.7); Basophil# 0.02 X10^3/uL; Basophil% 0.5 % (0-1); Eosinophil# 0.28 X10^3/uL; Eosinophils% 6.7 % (0-5); Hematocrit 42.4 % (40-54); Hemoglobin 13.8 g/dl (13.0-16.5); Lymphocyte # 1.87 X10^3/ul (4.0); Mean Corp Hgb Conc 32.5 g/gl (32-36); Mean Corpuscular Hgb 29.3 pg (27.0-32.0); Mean Platelet Vol. 9.8 fl (6.2-12.0); Monocyte# 0.57 X10^3/uL; Monocyte% 13.7 % (0-10); Neutrophil # 1.41 X10^3/uL (2.7-7.7); Neutrophil % 33.9 % (47-70); Platelet Count 97 K/mm3 (150-450); RBC Distribution Width SD 49.2 fl (35.1-43.9); Red Blood Count 4.71 M/mm3 (4.6-6.2); White Blood Count 4.2 K/mm3 (4.4-11.0)
[2018-05-19 10:03] LABS: POSITIVE COUNT NO; POSITIVE DIFFERENTIAL NO; POSITIVE MORPHOLOGY NO
[2018-05-19 10:44] LABS: ALB/GLOB Ratio 0.8 RATIO (0.9-2.4); AST(SGOT) 14 U/L (15-37); Alanine Aminotransfer ALT/SGPT 18 U/L (16-61); Albumin, Serum 3.5 g/dL (3.2-5.0); Alkaline Phosphatase 45 U/L (45-117); Anion Gap 7 (5-15); BUN 11 mg/dL (7-18); BUN/Creat Ratio 12.8 RATIO (10-20); Calcium,Total 9.2 mg/dL (8.5-10.1); Chloride 106 mmol/L (98-107); Creatinine, Serum 0.86 mg/dL (0.70-1.30); EST Glomerular Filtration Rate 106 mL/min (>60); Est Glom Filt Rate - Afr Amer 129 mL/min (>60); Globulin 4.2 g/dL (2.2-4.2); Glucose 87 mg/dL (74-106); Potassium 4.2 mmol/L (3.5-5.1); Protein, Total 7.7 g/dL (6.4-8.2); Sodium Level 141 mmol/L (136-145)
[2018-05-19 10:56] LABS: Valproic Acid (Depakene) Level 123 ug/mL (50-100)
[2018-05-26 09:48] LABS: Absolute Lymphocyte Count 1.81 X10^3/ul (0.83-4.51); Absolute Neutrophil Count 2.2 X10^3/uL (2.0-7.7); Basophil# 0.01 X10^3/uL; Basophil% 0.2 % (0-1); Eosinophil# 0.34 X10^3/uL; Eosinophils% 6.7 % (0-5); Hematocrit 42.2 % (40-54); Hemoglobin 13.8 g/dl (13.0-16.5); Lymphocyte # 1.81 X10^3/ul (4.0); Lymphocyte % 35.9 % (19-41); Mean Corp Hgb Conc 32.7 g/gl (32-36); Mean Corpuscular Hgb 29.6 pg (27.0-32.0); Mean Corpuscular Volume 90.4 fL (80-94); Mean Platelet Vol. 10.3 fl (6.2-12.0); Monocyte# 0.66 X10^3/uL; Monocyte% 13.1 % (0-10); Neutrophil # 2.22 X10^3/uL (2.7-7.7); Neutrophil % 44.1 % (47-70); Platelet Count 117 K/mm3 (150-450); RBC Distribution Width CV 15.5 % (11.6-14.6); Red Blood Count 4.67 M/mm3 (4.6-6.2)
[2018-05-26 09:56] LABS: POSITIVE COUNT NO; POSITIVE DIFFERENTIAL NO; POSITIVE MORPHOLOGY NO
[2018-06-02 10:04] LABS: Absolute Lymphocyte Count 1.98 X10^3/ul (0.83-4.51); Absolute Neutrophil Count 2.6 X10^3/uL (2.0-7.7); Basophil# 0.02 X10^3/uL; Basophil% 0.4 % (0-1); Eosinophil# 0.27 X10^3/uL; Hematocrit 43.3 % (40-54); Hemoglobin 13.8 g/dl (13.0-16.5); Lymphocyte # 1.98 X10^3/ul (4.0); Lymphocyte % 36.5 % (19-41); Mean Corp Hgb Conc 31.9 g/gl (32-36); Mean Platelet Vol. 10.4 fl (6.2-12.0); Monocyte# 0.58 X10^3/uL; Monocyte% 10.7 % (0-10); Neutrophil # 2.57 X10^3/uL (2.7-7.7); Neutrophil % 47.2 % (47-70); Platelet Count 143 K/mm3 (150-450); RBC Distribution Width CV 15.4 % (11.6-14.6); RBC Distribution Width SD 51.7 fl (35.1-43.9); Red Blood Count 4.76 M/mm3 (4.6-6.2); White Blood Count 5.4 K/mm3 (4.4-11.0)
[2018-06-02 10:06] LABS: POSITIVE COUNT NO; POSITIVE DIFFERENTIAL NO; POSITIVE MORPHOLOGY NO
[2018-06-09 10:43] LABS: Absolute Lymphocyte Count 1.81 X10^3/ul (0.83-4.51); Absolute Neutrophil Count 3.8 X10^3/uL (2.0-7.7); Basophil# 0.01 X10^3/uL; Basophil% 0.1 % (0-1); Eosinophil# 0.23 X10^3/uL; Eosinophils% 3.4 % (0-5); Hematocrit 42.2 % (40-54); Hemoglobin 13.7 g/dl (13.0-16.5); Lymphocyte # 1.81 X10^3/ul (4.0); Lymphocyte % 27.1 % (19-41); Mean Corp Hgb Conc 32.5 g/gl (32-36); Mean Corpuscular Hgb 29.1 pg (27.0-32.0); Mean Corpuscular Volume 89.8 fL (80-94); Mean Platelet Vol. 10.3 fl (6.2-12.0); Monocyte# 0.83 X10^3/uL; Monocyte% 12.4 % (0-10); Neutrophil # 3.79 X10^3/uL (2.7-7.7); Neutrophil % 56.9 % (47-70); Platelet Count 149 K/mm3 (150-450); RBC Distribution Width CV 15.2 % (11.6-14.6); RBC Distribution Width SD 49.9 fl (35.1-43.9); White Blood Count 6.7 K/mm3 (4.4-11.0)
[2018-06-09 10:44] LABS: POSITIVE COUNT NO; POSITIVE DIFFERENTIAL NO; POSITIVE MORPHOLOGY NO
[2018-06-09 11:29] LABS: ALB/GLOB Ratio 0.9 RATIO (0.9-2.4); AST(SGOT) 12 U/L (15-37); Alanine Aminotransfer ALT/SGPT 15 U/L (16-61); Albumin, Serum 3.6 g/dL (3.2-5.0); Alkaline Phosphatase 49 U/L (45-117); Anion Gap 4 (5-15); BUN 17 mg/dL (7-18); Chloride 108 mmol/L (98-107); Creatinine, Serum 0.81 mg/dL (0.70-1.30); EST Glomerular Filtration Rate 114 mL/min (>60); Est Glom Filt Rate - Afr Amer 138 mL/min (>60); Globulin 4.1 g/dL (2.2-4.2); Glucose 87 mg/dL (74-106); Potassium 4.5 mmol/L (3.5-5.1); Protein, Total 7.7 g/dL (6.4-8.2); Sodium Level 140 mmol/L (136-145)
[2018-06-16 10:03] LABS: Absolute Lymphocyte Count 2.01 X10^3/ul (0.83-4.51); Absolute Neutrophil Count 1.6 X10^3/uL (2.0-7.7); Basophil# 0.02 X10^3/uL; Basophil% 0.4 % (0-1); Eosinophil# 0.21 X10^3/uL; Eosinophils% 4.7 % (0-5); Lymphocyte # 2.01 X10^3/ul (4.0); Lymphocyte % 45.2 % (19-41); Mean Corp Hgb Conc 32.6 g/gl (32-36); Mean Corpuscular Hgb 29.2 pg (27.0-32.0); Mean Corpuscular Volume 89.8 fL (80-94); Mean Platelet Vol. 9.9 fl (6.2-12.0); Monocyte# 0.56 X10^3/uL; Monocyte% 12.6 % (0-10); Neutrophil # 1.64 X10^3/uL (2.7-7.7); Neutrophil % 36.9 % (47-70); Platelet Count 128 K/mm3 (150-450); RBC Distribution Width CV 15.2 % (11.6-14.6); RBC Distribution Width SD 49.9 fl (35.1-43.9); Red Blood Count 4.79 M/mm3 (4.6-6.2); White Blood Count 4.5 K/mm3 (4.4-11.0)
[2018-06-16 10:05] LABS: POSITIVE COUNT NO; POSITIVE DIFFERENTIAL NO; POSITIVE MORPHOLOGY NO
[2018-06-16 10:31] LABS: ALB/GLOB Ratio 0.9 RATIO (0.9-2.4); AST(SGOT) 12 U/L (15-37); Alanine Aminotransfer ALT/SGPT 13 U/L (16-61); Albumin, Serum 3.5 g/dL (3.2-5.0); Alkaline Phosphatase 46 U/L (45-117); Anion Gap 6 (5-15); BUN 13 mg/dL (7-18); BUN/Creat Ratio 14.4 RATIO (10-20); Chloride 106 mmol/L (98-107); EST Glomerular Filtration Rate 101 mL/min (>60); Est Glom Filt Rate - Afr Amer 122 mL/min (>60); Globulin 4.1 g/dL (2.2-4.2); Glucose 86 mg/dL (74-106); Potassium 4.4 mmol/L (3.5-5.1); Protein, Total 7.6 g/dL (6.4-8.2); Sodium Level 142 mmol/L (136-145)
[2018-06-16 10:40] LABS: Valproic Acid (Depakene) Level 118 ug/mL (50-100)
[2018-06-17 11:56] LABS: Valproic Acid (Depakene) Level 95 ug/mL (50-100)
== END 2018-06-17 16:00 | disposition home or self-care (01) ==
LOC: LAB 09:27
PROVIDERS: Family Provider Family Medicine; PCP Family Medicine; Referring Provider Psychiatry & Neurology Child & Adolescent Psychiatry; Visit Provider Psychiatry & Neurology Child & Adolescent Psychiatry
DX: F31.9 Bipolar disorder, unspecified (principal); F41.9 Anxiety disorder, unspecified; Z51.81 Encounter for therapeutic drug level monitoring
CPT/HCPCS: 36415; 80053; 80164; 85025

== ENCOUNTER 2018-07-15 09:26 | Outpatient (RCR) | payer MEDICAID, SELFPAY ==
[2018-06-23 09:58] LABS: Absolute Lymphocyte Count 1.97 X10^3/ul (0.83-4.51); Absolute Neutrophil Count 1.5 X10^3/uL (2.0-7.7); Basophil# 0.01 X10^3/uL; Basophil% 0.2 % (0-1); Eosinophil# 0.24 X10^3/uL; Eosinophils% 5.8 % (0-5); Hematocrit 40.8 % (40-54); Hemoglobin 13.3 g/dl (13.0-16.5); Lymphocyte # 1.97 X10^3/ul (4.0); Lymphocyte % 47.2 % (19-41); Mean Corp Hgb Conc 32.6 g/gl (32-36); Mean Corpuscular Hgb 29.2 pg (27.0-32.0); Mean Corpuscular Volume 89.5 fL (80-94); Mean Platelet Vol. 10.1 fl (6.2-12.0); Monocyte# 0.49 X10^3/uL; Monocyte% 11.8 % (0-10); Neutrophil # 1.46 X10^3/uL (2.7-7.7); Platelet Count 111 K/mm3 (150-450); RBC Distribution Width CV 14.9 % (11.6-14.6); RBC Distribution Width SD 48.4 fl (35.1-43.9); Red Blood Count 4.56 M/mm3 (4.6-6.2); White Blood Count 4.2 K/mm3 (4.4-11.0)
[2018-06-23 10:02] LABS: POSITIVE COUNT NO; POSITIVE DIFFERENTIAL NO; POSITIVE MORPHOLOGY NO
[2018-06-30 10:05] LABS: Absolute Lymphocyte Count 1.84 X10^3/ul (0.83-4.51); Basophil# 0.01 X10^3/uL; Basophil% 0.2 % (0-1); Eosinophils% 4.3 % (0-5); Hematocrit 41.1 % (40-54); Hemoglobin 13.4 g/dl (13.0-16.5); Lymphocyte # 1.84 X10^3/ul (4.0); Lymphocyte % 39.9 % (19-41); Mean Corp Hgb Conc 32.6 g/gl (32-36); Mean Corpuscular Hgb 29.3 pg (27.0-32.0); Mean Corpuscular Volume 89.7 fL (80-94); Neutrophil # 1.95 X10^3/uL (2.7-7.7); Neutrophil % 42.4 % (47-70); Platelet Count 119 K/mm3 (150-450); RBC Distribution Width CV 15.3 % (11.6-14.6); Red Blood Count 4.58 M/mm3 (4.6-6.2); White Blood Count 4.6 K/mm3 (4.4-11.0)
[2018-06-30 10:07] LABS: POSITIVE COUNT NO; POSITIVE DIFFERENTIAL NO; POSITIVE MORPHOLOGY NO
[2018-07-07 09:56] LABS: Absolute Lymphocyte Count 1.79 X10^3/ul (0.83-4.51); Absolute Neutrophil Count 1.6 X10^3/uL (2.0-7.7); Basophil# 0.01 X10^3/uL; Basophil% 0.2 % (0-1); Eosinophil# 0.16 X10^3/uL; Eosinophils% 3.9 % (0-5); Hematocrit 43.2 % (40-54); Hemoglobin 14.2 g/dl (13.0-16.5); Lymphocyte # 1.79 X10^3/ul (4.0); Lymphocyte % 43.4 % (19-41); Mean Corp Hgb Conc 32.9 g/gl (32-36); Mean Corpuscular Hgb 29.3 pg (27.0-32.0); Mean Corpuscular Volume 89.1 fL (80-94); Mean Platelet Vol. 9.9 fl (6.2-12.0); Monocyte# 0.52 X10^3/uL; Monocyte% 12.6 % (0-10); Neutrophil # 1.63 X10^3/uL (2.7-7.7); Neutrophil % 39.7 % (47-70); Platelet Count 137 K/mm3 (150-450); Red Blood Count 4.85 M/mm3 (4.6-6.2); White Blood Count 4.1 K/mm3 (4.4-11.0)
[2018-07-07 10:01] LABS: POSITIVE COUNT NO; POSITIVE DIFFERENTIAL NO; POSITIVE MORPHOLOGY NO
[2018-07-15 10:07] LABS: Absolute Lymphocyte Count 1.59 X10^3/ul (0.83-4.51); Absolute Neutrophil Count 1.3 X10^3/uL (2.0-7.7); Basophil# 0.02 X10^3/uL; Basophil% 0.6 % (0-1); Eosinophil# 0.13 X10^3/uL; Eosinophils% 3.8 % (0-5); Hematocrit 42.9 % (40-54); Hemoglobin 13.9 g/dl (13.0-16.5); Lymphocyte # 1.59 X10^3/ul (4.0); Lymphocyte % 46.2 % (19-41); Mean Corp Hgb Conc 32.4 g/gl (32-36); Mean Corpuscular Volume 89.6 fL (80-94); Mean Platelet Vol. 10.3 fl (6.2-12.0); Monocyte# 0.41 X10^3/uL; Monocyte% 11.9 % (0-10); Neutrophil # 1.28 X10^3/uL (2.7-7.7); Neutrophil % 37.2 % (47-70); Platelet Count 129 K/mm3 (150-450); RBC Distribution Width SD 48.9 fl (35.1-43.9); Red Blood Count 4.79 M/mm3 (4.6-6.2); White Blood Count 3.4 K/mm3 (4.4-11.0)
[2018-07-15 10:08] LABS: POSITIVE COUNT NO; POSITIVE DIFFERENTIAL NO; POSITIVE MORPHOLOGY NO
[2018-07-15 10:35] LABS: Valproic Acid (Depakene) Level 75 ug/mL (50-100)
[2018-07-15 10:36] LABS: ALB/GLOB Ratio 0.8 RATIO (0.9-2.4); AST(SGOT) 15 U/L (15-37); Alanine Aminotransfer ALT/SGPT 15 U/L (16-61); Albumin, Serum 3.4 g/dL (3.2-5.0); Alkaline Phosphatase 45 U/L (45-117); Anion Gap 5 (5-15); BUN 14 mg/dL (7-18); BUN/Creat Ratio 14.8 RATIO (10-20); Calcium,Total 9.2 mg/dL (8.5-10.1); Chloride 108 mmol/L (98-107); Creatinine, Serum 0.95 mg/dL (0.70-1.30); EST Glomerular Filtration Rate 95 mL/min (>60); Est Glom Filt Rate - Afr Amer 115 mL/min (>60); Glucose 84 mg/dL (74-106); Potassium 4.2 mmol/L (3.5-5.1); Protein, Total 7.4 g/dL (6.4-8.2); Sodium Level 144 mmol/L (136-145)
== END 2018-07-15 10:26 | disposition home or self-care (01) ==
LOC: LAB 09:26
PROVIDERS: Family Provider Family Medicine; PCP Family Medicine; Referring Provider Psychiatry & Neurology Child & Adolescent Psychiatry; Visit Provider Psychiatry & Neurology Child & Adolescent Psychiatry
DX: F41.9 Anxiety disorder, unspecified (principal); F31.9 Bipolar disorder, unspecified; Z51.81 Encounter for therapeutic drug level monitoring
CPT/HCPCS: 36415; 80053; 80164; 85025

== ENCOUNTER 2018-07-17 12:01 | Emergency (ER) | payer MEDICAID, SELFPAY ==
[2018-07-17 12:04] VITALS: BP 110/78; PULSE 87; RESP 16; TEMP 36.6; O2SAT 96; BMI 27.1
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
[2018-07-17 13:19] VITALS: BP 120/68; PULSE 80; RESP 16; O2SAT 100
== END 2018-07-17 13:20 | disposition home or self-care (01) ==
PROVIDERS: Emergency Provider Emergency Medicine; Family Provider Family Medicine; PCP Family Medicine
DX: S60.511A Abrasion of right hand, initial encounter (principal); V19.88XA Pedal cyclist (driver) (passenger) injured in other specified transport accidents, initial encounter; Y93.55 Activity, bike riding; Y92.89 Other specified places as the place of occurrence of the external cause; Y99.8 Other external cause status; R62.50 Unspecified lack of expected normal physiological development in childhood
CPT/HCPCS: 73130; 99282

== ENCOUNTER 2018-08-12 09:19 | Outpatient (RCR) | payer MEDICAID, SELFPAY ==
[2018-07-19 09:35] VITALS: BMI 34.8
[2018-07-21 10:05] LABS: Absolute Lymphocyte Count 1.95 X10^3/ul (0.83-4.51); Absolute Neutrophil Count 1.9 X10^3/uL (2.0-7.7); Basophil# 0.02 X10^3/uL; Basophil% 0.4 % (0-1); Eosinophil# 0.13 X10^3/uL; Eosinophils% 2.7 % (0-5); Hematocrit 41.6 % (40-54); Hemoglobin 13.6 g/dl (13.0-16.5); Lymphocyte # 1.95 X10^3/ul (4.0); Lymphocyte % 41.1 % (19-41); Mean Corp Hgb Conc 32.7 g/gl (32-36); Mean Corpuscular Hgb 29.1 pg (27.0-32.0); Mean Corpuscular Volume 89.1 fL (80-94); Mean Platelet Vol. 9.9 fl (6.2-12.0); Monocyte# 0.71 X10^3/uL; Monocyte% 14.9 % (0-10); Neutrophil # 1.93 X10^3/uL (2.7-7.7); Neutrophil % 40.7 % (47-70); Platelet Count 121 K/mm3 (150-450); RBC Distribution Width CV 14.8 % (11.6-14.6); Red Blood Count 4.67 M/mm3 (4.6-6.2); White Blood Count 4.8 K/mm3 (4.4-11.0)
[2018-07-21 10:08] LABS: POSITIVE COUNT NO; POSITIVE DIFFERENTIAL NO; POSITIVE MORPHOLOGY NO
[2018-07-28 10:21] LABS: Absolute Lymphocyte Count 2.08 X10^3/ul (0.83-4.51); Absolute Neutrophil Count 2.4 X10^3/uL (2.0-7.7); Basophil# 0.01 X10^3/uL; Basophil% 0.2 % (0-1); Eosinophil# 0.16 X10^3/uL; Eosinophils% 2.9 % (0-5); Hematocrit 40.5 % (40-54); Hemoglobin 13.3 g/dl (13.0-16.5); Lymphocyte # 2.08 X10^3/ul (4.0); Lymphocyte % 38.1 % (19-41); Mean Corp Hgb Conc 32.8 g/gl (32-36); Mean Corpuscular Hgb 29.1 pg (27.0-32.0); Mean Corpuscular Volume 88.6 fL (80-94); Mean Platelet Vol. 9.9 fl (6.2-12.0); Monocyte# 0.76 X10^3/uL; Monocyte% 13.9 % (0-10); Neutrophil # 2.44 X10^3/uL (2.7-7.7); Neutrophil % 44.7 % (47-70); Platelet Count 124 K/mm3 (150-450); RBC Distribution Width CV 14.8 % (11.6-14.6); RBC Distribution Width SD 47.4 fl (35.1-43.9); Red Blood Count 4.57 M/mm3 (4.6-6.2); White Blood Count 5.5 K/mm3 (4.4-11.0)
[2018-07-28 10:32] LABS: POSITIVE COUNT NO; POSITIVE DIFFERENTIAL NO; POSITIVE MORPHOLOGY NO
[2018-08-04 10:21] LABS: Absolute Lymphocyte Count 1.66 X10^3/ul (0.83-4.51); Basophil# 0.01 X10^3/uL; Basophil% 0.3 % (0-1); Eosinophil# 0.12 X10^3/uL; Eosinophils% 3.6 % (0-5); Lymphocyte # 1.66 X10^3/ul (4.0); Lymphocyte % 49.1 % (19-41); Mean Corp Hgb Conc 32.5 g/gl (32-36); Mean Corpuscular Hgb 29.1 pg (27.0-32.0); Mean Corpuscular Volume 89.7 fL (80-94); Mean Platelet Vol. 10.1 fl (6.2-12.0); Monocyte# 0.56 X10^3/uL; Monocyte% 16.6 % (0-10); Neutrophil # 1.03 X10^3/uL (2.7-7.7); Neutrophil % 30.4 % (47-70); Platelet Count 116 K/mm3 (150-450); RBC Distribution Width CV 14.8 % (11.6-14.6); RBC Distribution Width SD 47.8 fl (35.1-43.9); Red Blood Count 4.46 M/mm3 (4.6-6.2); White Blood Count 3.4 K/mm3 (4.4-11.0)
[2018-08-04 10:22] LABS: POSITIVE COUNT NO; POSITIVE DIFFERENTIAL NO; POSITIVE MORPHOLOGY NO
[2018-08-12 10:10] LABS: Absolute Neutrophil Count 2.1 X10^3/uL (2.0-7.7); Basophil# 0.02 X10^3/uL; Basophil% 0.4 % (0-1); Eosinophil# 0.13 X10^3/uL; Eosinophils% 2.7 % (0-5); Hematocrit 41.7 % (40-54); Hemoglobin 13.7 g/dl (13.0-16.5); Lymphocyte % 42.9 % (19-41); Mean Corp Hgb Conc 32.9 g/gl (32-36); Mean Corpuscular Hgb 29.3 pg (27.0-32.0); Mean Corpuscular Volume 89.1 fL (80-94); Mean Platelet Vol. 9.4 fl (6.2-12.0); Monocyte# 0.58 X10^3/uL; Monocyte% 11.9 % (0-10); Neutrophil # 2.05 X10^3/uL (2.7-7.7); Neutrophil % 41.9 % (47-70); Platelet Count 131 K/mm3 (150-450); RBC Distribution Width CV 14.9 % (11.6-14.6); RBC Distribution Width SD 48.1 fl (35.1-43.9); Red Blood Count 4.68 M/mm3 (4.6-6.2); White Blood Count 4.9 K/mm3 (4.4-11.0)
[2018-08-12 10:14] LABS: POSITIVE COUNT NO; POSITIVE DIFFERENTIAL NO; POSITIVE MORPHOLOGY NO
[2018-08-12 10:35] LABS: ALB/GLOB Ratio 0.8 RATIO (0.9-2.4); AST(SGOT) 16 U/L (15-37); Alanine Aminotransfer ALT/SGPT 15 U/L (16-61); Albumin, Serum 3.4 g/dL (3.2-5.0); Alkaline Phosphatase 49 U/L (45-117); Anion Gap 3 (5-15); BUN 11 mg/dL (7-18); BUN/Creat Ratio 13.2 RATIO (10-20); Calcium,Total 9.2 mg/dL (8.5-10.1); Chloride 107 mmol/L (98-107); Creatinine, Serum 0.83 mg/dL (0.70-1.30); EST Glomerular Filtration Rate 110 mL/min (>60); Est Glom Filt Rate - Afr Amer 133 mL/min (>60); Globulin 4.3 g/dL (2.2-4.2); Glucose 85 mg/dL (74-106); Potassium 4.4 mmol/L (3.5-5.1); Protein, Total 7.7 g/dL (6.4-8.2); Sodium Level 138 mmol/L (136-145)
== END 2018-08-17 12:00 | disposition home or self-care (01) ==
LOC: LAB 09:19
PROVIDERS: Family Provider Family Medicine; PCP Family Medicine; Referring Provider Psychiatry & Neurology Child & Adolescent Psychiatry; Visit Provider Psychiatry & Neurology Child & Adolescent Psychiatry
DX: F31.81 Bipolar II disorder (principal)
CPT/HCPCS: 36415; 80053; 85025

== ENCOUNTER 2018-09-15 09:25 | Outpatient (RCR) | payer MEDICAID, SELFPAY ==
[2018-07-19 09:35] VITALS: BMI 34.8
[2018-08-18 10:08] LABS: Absolute Neutrophil Count 1.7 X10^3/uL (2.0-7.7); Basophil# 0.01 X10^3/uL; Basophil% 0.3 % (0-1); Eosinophil# 0.11 X10^3/uL; Eosinophils% 2.8 % (0-5); Hematocrit 41.4 % (40-54); Hemoglobin 13.6 g/dl (13.0-16.5); Lymphocyte % 40.7 % (19-41); Mean Corp Hgb Conc 32.9 g/gl (32-36); Mean Corpuscular Hgb 29.1 pg (27.0-32.0); Mean Corpuscular Volume 88.5 fL (80-94); Mean Platelet Vol. 10.3 fl (6.2-12.0); Monocyte# 0.54 X10^3/uL; Monocyte% 13.7 % (0-10); Neutrophil # 1.67 X10^3/uL (2.7-7.7); Neutrophil % 42.5 % (47-70); Platelet Count 113 K/mm3 (150-450); RBC Distribution Width CV 14.7 % (11.6-14.6); RBC Distribution Width SD 47.2 fl (35.1-43.9); Red Blood Count 4.68 M/mm3 (4.6-6.2); White Blood Count 3.9 K/mm3 (4.4-11.0)
[2018-08-18 10:11] LABS: POSITIVE COUNT NO; POSITIVE DIFFERENTIAL NO; POSITIVE MORPHOLOGY NO
[2018-08-25 10:58] LABS: Absolute Lymphocyte Count 1.71 X10^3/ul (0.83-4.51); Absolute Neutrophil Count 1.9 X10^3/uL (2.0-7.7); Basophil# 0.01 X10^3/uL; Basophil% 0.2 % (0-1); Eosinophil# 0.13 X10^3/uL; Eosinophils% 3.1 % (0-5); Hematocrit 41.2 % (40-54); Hemoglobin 13.6 g/dl (13.0-16.5); Lymphocyte # 1.71 X10^3/ul (4.0); Lymphocyte % 40.6 % (19-41); Mean Corpuscular Hgb 29.4 pg (27.0-32.0); Mean Corpuscular Volume 89.2 fL (80-94); Monocyte# 0.48 X10^3/uL; Monocyte% 11.4 % (0-10); Neutrophil # 1.87 X10^3/uL (2.7-7.7); Neutrophil % 44.5 % (47-70); Platelet Count 120 K/mm3 (150-450); RBC Distribution Width CV 14.9 % (11.6-14.6); RBC Distribution Width SD 48.5 fl (35.1-43.9); Red Blood Count 4.62 M/mm3 (4.6-6.2); White Blood Count 4.2 K/mm3 (4.4-11.0)
[2018-08-25 11:00] LABS: POSITIVE COUNT NO; POSITIVE DIFFERENTIAL NO; POSITIVE MORPHOLOGY NO
[2018-09-01 10:29] LABS: Absolute Lymphocyte Count 1.73 X10^3/ul (0.83-4.51); Absolute Neutrophil Count 1.2 X10^3/uL (2.0-7.7); Basophil# 0.01 X10^3/uL; Basophil% 0.3 % (0-1); Eosinophil# 0.13 X10^3/uL; Eosinophils% 3.7 % (0-5); Hematocrit 40.6 % (40-54); Hemoglobin 13.2 g/dl (13.0-16.5); Lymphocyte # 1.73 X10^3/ul (4.0); Lymphocyte % 48.6 % (19-41); Mean Corp Hgb Conc 32.5 g/gl (32-36); Mean Corpuscular Hgb 28.9 pg (27.0-32.0); Mean Corpuscular Volume 88.8 fL (80-94); Mean Platelet Vol. 9.9 fl (6.2-12.0); Monocyte# 0.46 X10^3/uL; Monocyte% 12.9 % (0-10); Neutrophil # 1.23 X10^3/uL (2.7-7.7); Neutrophil % 34.5 % (47-70); POSITIVE COUNT NO; POSITIVE DIFFERENTIAL NO; POSITIVE MORPHOLOGY NO; Platelet Count 129 K/mm3 (150-450); RBC Distribution Width CV 14.8 % (11.6-14.6); RBC Distribution Width SD 47.4 fl (35.1-43.9); Red Blood Count 4.57 M/mm3 (4.6-6.2); White Blood Count 3.6 K/mm3 (4.4-11.0)
[2018-09-08 10:17] LABS: Absolute Lymphocyte Count 1.95 X10^3/uL (0.83-4.51); Absolute Neutrophil Count 2.2 X10^3/uL (2.0-7.7); Basophil# 0.03 X10^3/uL; Basophil% 0.6 % (0-1); Eosinophil# 0.11 X10^3/uL; Eosinophils% 2.3 % (0-5); Hemoglobin 13.6 g/dL (13.0-16.5); Lymphocyte # 1.95 X10^3/ul (4.0); Mean Corp Hgb Conc 32.4 g/dL (32-36); Mean Corpuscular Hgb 29.3 pg (27.0-32.0); Mean Corpuscular Volume 90.5 fL (80-94); Mean Platelet Vol. 10.4 fl (6.2-12.0); Monocyte# 0.57 X10^3/uL; Monocyte% 11.7 % (0-10); NRBC Flagged by Analyzer 0 % (0-5); Neutrophil % 45.2 % (47-70); Platelet Count 145 K/mm3 (150-450); RBC Distribution Width CV 14.6 % (11.6-14.6); RBC Distribution Width SD 48.2 fl (35.1-43.9); Red Blood Count 4.64 M/mm3 (4.6-6.2); White Blood Count 4.9 K/mm3 (4.4-11.0)
[2018-09-08 10:47] LABS: Valproic Acid (Depakene) Level 88 ug/mL (50-100)
[2018-09-15 09:48] LABS: Absolute Lymphocyte Count 2.14 X10^3/uL (0.83-4.51); Absolute Neutrophil Count 1.9 X10^3/uL (2.0-7.7); Basophil# 0.02 X10^3/uL; Basophil% 0.4 % (0-1); Eosinophil# 0.16 X10^3/uL; Eosinophils% 3.3 % (0-5); Hematocrit 41.3 % (40-54); Hemoglobin 13.5 g/dL (13.0-16.5); Lymphocyte # 2.14 X10^3/ul (4.0); Lymphocyte % 44.7 % (19-41); Mean Corp Hgb Conc 32.7 g/dL (32-36); Mean Corpuscular Hgb 29.7 pg (27.0-32.0); Mean Platelet Vol. 9.8 fl (6.2-12.0); Monocyte# 0.57 X10^3/uL; Monocyte% 11.9 % (0-10); NRBC Flagged by Analyzer 0 % (0-5); Neutrophil # 1.88 X10^3/uL (2.7-7.7); Neutrophil % 39.3 % (47-70); Platelet Count 127 K/mm3 (150-450); RBC Distribution Width CV 14.3 % (11.6-14.6); RBC Distribution Width SD 47.8 fl (35.1-43.9); Red Blood Count 4.54 M/mm3 (4.6-6.2); White Blood Count 4.8 K/mm3 (4.4-11.0)
== END 2018-09-17 16:00 | disposition home or self-care (01) ==
LOC: LAB 09:25
PROVIDERS: Family Provider Family Medicine; PCP Family Medicine; Referring Provider Psychiatry & Neurology Child & Adolescent Psychiatry; Visit Provider Psychiatry & Neurology Child & Adolescent Psychiatry
DX: F31.81 Bipolar II disorder (principal); F41.9 Anxiety disorder, unspecified; Z51.81 Encounter for therapeutic drug level monitoring
CPT/HCPCS: 36415; 80164; 85025

== ENCOUNTER 2018-10-13 09:29 | Outpatient (RCR) | payer MEDICAID, SELFPAY ==
[2018-09-18 07:24] VITALS: BMI 27.1
[2018-09-22 12:08] LABS: Absolute Lymphocyte Count 1.82 X10^3/uL (0.83-4.51); Absolute Neutrophil Count 1.5 X10^3/uL (2.0-7.7); Basophil# 0.02 X10^3/uL; Basophil% 0.5 % (0-1); Eosinophil# 0.13 X10^3/uL; Eosinophils% 3.3 % (0-5); Hematocrit 41.2 % (40-54); Hemoglobin 13.3 g/dL (13.0-16.5); Lymphocyte # 1.82 X10^3/ul (4.0); Lymphocyte % 46.8 % (19-41); Mean Corp Hgb Conc 32.3 g/dL (32-36); Mean Corpuscular Hgb 29.4 pg (27.0-32.0); Mean Corpuscular Volume 90.9 fL (80-94); Mean Platelet Vol. 10.4 fl (6.2-12.0); Monocyte# 0.39 X10^3/uL; NRBC Flagged by Analyzer 0 % (0-5); Neutrophil # 1.52 X10^3/uL (2.7-7.7); Neutrophil % 39.1 % (47-70); Platelet Count 121 K/mm3 (150-450); RBC Distribution Width CV 14.6 % (11.6-14.6); RBC Distribution Width SD 49.1 fl (35.1-43.9); Red Blood Count 4.53 M/mm3 (4.6-6.2); White Blood Count 3.9 K/mm3 (4.4-11.0)
[2018-09-29 09:52] LABS: Absolute Lymphocyte Count 2.07 X10^3/uL (0.83-4.51); Absolute Neutrophil Count 1.2 X10^3/uL (2.0-7.7); Basophil# 0.03 X10^3/uL; Basophil% 0.8 % (0-1); Eosinophil# 0.11 X10^3/uL; Eosinophils% 2.9 % (0-5); Hematocrit 41.1 % (40-54); Hemoglobin 13.1 g/dL (13.0-16.5); Lymphocyte # 2.07 X10^3/ul (4.0); Lymphocyte % 54.3 % (19-41); Mean Corp Hgb Conc 31.9 g/dL (32-36); Mean Corpuscular Hgb 29.3 pg (27.0-32.0); Mean Corpuscular Volume 91.9 fL (80-94); Monocyte# 0.44 X10^3/uL; Monocyte% 11.5 % (0-10); NRBC Flagged by Analyzer 0 % (0-5); Neutrophil # 1.15 X10^3/uL (2.7-7.7); Neutrophil % 30.2 % (47-70); Platelet Count 113 K/mm3 (150-450); RBC Distribution Width CV 14.6 % (11.6-14.6); RBC Distribution Width SD 49.3 fl (35.1-43.9); Red Blood Count 4.47 M/mm3 (4.6-6.2); White Blood Count 3.8 K/mm3 (4.4-11.0)
[2018-10-06 11:17] LABS: Absolute Lymphocyte Count 1.97 X10^3/uL (0.83-4.51); Absolute Neutrophil Count 1.9 X10^3/uL (2.0-7.7); Basophil# 0.02 X10^3/uL; Basophil% 0.4 % (0-1); Eosinophil# 0.12 X10^3/uL; Eosinophils% 2.7 % (0-5); Hematocrit 39.5 % (40-54); Hemoglobin 12.8 g/dL (13.0-16.5); Lymphocyte # 1.97 X10^3/ul (4.0); Lymphocyte % 43.7 % (19-41); Mean Corp Hgb Conc 32.4 g/dL (32-36); Mean Corpuscular Hgb 29.4 pg (27.0-32.0); Mean Corpuscular Volume 90.6 fL (80-94); Monocyte# 0.53 X10^3/uL; Monocyte% 11.8 % (0-10); NRBC Flagged by Analyzer 0 % (0-5); Neutrophil # 1.86 X10^3/uL (2.7-7.7); Neutrophil % 41.2 % (47-70); Platelet Count 125 K/mm3 (150-450); RBC Distribution Width CV 14.4 % (11.6-14.6); RBC Distribution Width SD 48.3 fl (35.1-43.9); Red Blood Count 4.36 M/mm3 (4.6-6.2); White Blood Count 4.5 K/mm3 (4.4-11.0)
[2018-10-13 11:10] LABS: Absolute Lymphocyte Count 1.97 X10^3/uL (0.83-4.51); Basophil# 0.03 X10^3/uL; Basophil% 0.6 % (0-1); Eosinophil# 0.13 X10^3/uL; Eosinophils% 2.8 % (0-5); Hematocrit 41.8 % (40-54); Hemoglobin 13.5 g/dL (13.0-16.5); Lymphocyte # 1.97 X10^3/ul (4.0); Lymphocyte % 42.2 % (19-41); Mean Corp Hgb Conc 32.3 g/dL (32-36); Mean Corpuscular Hgb 29.7 pg (27.0-32.0); Mean Corpuscular Volume 92.1 fL (80-94); Mean Platelet Vol. 10.2 fl (6.2-12.0); Monocyte# 0.54 X10^3/uL; Monocyte% 11.6 % (0-10); NRBC Flagged by Analyzer 0 % (0-5); Neutrophil # 1.99 X10^3/uL (2.7-7.7); Neutrophil % 42.6 % (47-70); Platelet Count 142 K/mm3 (150-450); RBC Distribution Width CV 14.5 % (11.6-14.6); RBC Distribution Width SD 49.3 fl (35.1-43.9); Red Blood Count 4.54 M/mm3 (4.6-6.2); White Blood Count 4.7 K/mm3 (4.4-11.0)
[2018-10-13 11:42] LABS: Albumin, Serum 3.3 g/dL (3.2-5.0); BUN 11 mg/dL (7-18); BUN/Creat Ratio 12.9 RATIO (10-20); Creatinine, Serum 0.86 mg/dL (0.70-1.30); EST Glomerular Filtration Rate 107 mL/min (>60); Est Glom Filt Rate - Afr Amer 129 mL/min (>60); Glucose 79 mg/dL (74-106); Protein, Total 7.5 g/dL (6.4-8.2)
[2018-10-13 11:43] LABS: ALB/GLOB Ratio 0.8 RATIO (0.9-2.4); AST(SGOT) 8 U/L (15-37); Alanine Aminotransfer ALT/SGPT 13 U/L (16-61); Alkaline Phosphatase 48 U/L (45-117); Anion Gap 5 (5-15); Calcium,Total 9.3 mg/dL (8.5-10.1); Chloride 107 mmol/L (98-107); Globulin 4.2 g/dL (2.2-4.2); Potassium 4.5 mmol/L (3.5-5.1); Sodium Level 142 mmol/L (136-145)
[2018-10-13 11:50] LABS: Valproic Acid (Depakene) Level 81 ug/mL (50-100)
== END 2018-10-13 11:00 | disposition home or self-care (01) ==
LOC: LAB 09:29
PROVIDERS: Family Provider Family Medicine; PCP Family Medicine; Referring Provider Psychiatry & Neurology Child & Adolescent Psychiatry; Visit Provider Psychiatry & Neurology Child & Adolescent Psychiatry
DX: F31.81 Bipolar II disorder (principal); F41.9 Anxiety disorder, unspecified; Z51.81 Encounter for therapeutic drug level monitoring
CPT/HCPCS: 36415; 80053; 80164; 85025

== ENCOUNTER 2018-11-10 09:38 | Outpatient (RCR) | payer MEDICAID, SELFPAY ==
[2018-09-18 07:24] VITALS: BMI 27.1
[2018-10-21 11:07] LABS: Absolute Lymphocyte Count 1.97 X10^3/uL (0.83-4.51); Absolute Neutrophil Count 2.3 X10^3/uL (2.0-7.7); Basophil# 0.02 X10^3/uL; Basophil% 0.4 % (0-1); Eosinophil# 0.13 X10^3/uL; Eosinophils% 2.6 % (0-5); Hematocrit 41.3 % (40-54); Hemoglobin 13.4 g/dL (13.0-16.5); Lymphocyte # 1.97 X10^3/ul (4.0); Mean Corp Hgb Conc 32.4 g/dL (32-36); Mean Corpuscular Volume 92.6 fL (80-94); Mean Platelet Vol. 10.2 fl (6.2-12.0); Monocyte# 0.53 X10^3/uL; Monocyte% 10.8 % (0-10); NRBC Flagged by Analyzer 0 % (0-5); Neutrophil # 2.26 X10^3/uL (2.7-7.7); Neutrophil % 45.8 % (47-70); Platelet Count 128 K/mm3 (150-450); RBC Distribution Width CV 14.8 % (11.6-14.6); RBC Distribution Width SD 50.7 fl (35.1-43.9); Red Blood Count 4.46 M/mm3 (4.6-6.2); White Blood Count 4.9 K/mm3 (4.4-11.0)
[2018-10-27 10:04] LABS: Absolute Lymphocyte Count 2.48 X10^3/uL (0.83-4.51); Basophil# 0.02 X10^3/uL; Basophil% 0.4 % (0-1); Eosinophil# 0.13 X10^3/uL; Eosinophils% 2.5 % (0-5); Hematocrit 42.3 % (40-54); Hemoglobin 13.5 g/dL (13.0-16.5); Lymphocyte # 2.48 X10^3/ul (4.0); Lymphocyte % 47.3 % (19-41); Mean Corp Hgb Conc 31.9 g/dL (32-36); Mean Corpuscular Hgb 29.5 pg (27.0-32.0); Mean Corpuscular Volume 92.6 fL (80-94); Mean Platelet Vol. 9.7 fl (6.2-12.0); Monocyte# 0.62 X10^3/uL; Monocyte% 11.8 % (0-10); NRBC Flagged by Analyzer 0 % (0-5); Neutrophil # 1.97 X10^3/uL (2.7-7.7); Neutrophil % 37.6 % (47-70); Platelet Count 118 K/mm3 (150-450); RBC Distribution Width CV 14.5 % (11.6-14.6); RBC Distribution Width SD 49.1 fl (35.1-43.9); Red Blood Count 4.57 M/mm3 (4.6-6.2); White Blood Count 5.2 K/mm3 (4.4-11.0)
[2018-11-03 11:02] LABS: Absolute Neutrophil Count 2.2 X10^3/uL (2.0-7.7); Basophil# 0.01 X10^3/uL; Basophil% 0.2 % (0-1); Eosinophil# 0.11 X10^3/uL; Eosinophils% 2.3 % (0-5); Hematocrit 40.1 % (40-54); Hemoglobin 12.7 g/dL (13.0-16.5); Lymphocyte % 41.7 % (19-41); Mean Corp Hgb Conc 31.7 g/dL (32-36); Mean Corpuscular Hgb 29.4 pg (27.0-32.0); Mean Corpuscular Volume 92.8 fL (80-94); Mean Platelet Vol. 10.3 fl (6.2-12.0); Monocyte# 0.49 X10^3/uL; Monocyte% 10.2 % (0-10); NRBC Flagged by Analyzer 0 % (0-5); Neutrophil # 2.18 X10^3/uL (2.7-7.7); Neutrophil % 45.4 % (47-70); Platelet Count 104 K/mm3 (150-450); RBC Distribution Width CV 14.5 % (11.6-14.6); RBC Distribution Width SD 49.4 fl (35.1-43.9); Red Blood Count 4.32 M/mm3 (4.6-6.2); White Blood Count 4.8 K/mm3 (4.4-11.0)
[2018-11-10 09:51] LABS: Absolute Lymphocyte Count 1.95 X10^3/uL (0.83-4.51); Absolute Neutrophil Count 1.5 X10^3/uL (2.0-7.7); Basophil# 0.02 X10^3/uL; Basophil% 0.5 % (0-1); Eosinophil# 0.14 X10^3/uL; Eosinophils% 3.4 % (0-5); Hematocrit 40.2 % (40-54); Hemoglobin 12.6 g/dL (13.0-16.5); Lymphocyte # 1.95 X10^3/ul (4.0); Lymphocyte % 47.3 % (19-41); Mean Corp Hgb Conc 31.3 g/dL (32-36); Mean Corpuscular Hgb 29.2 pg (27.0-32.0); Mean Corpuscular Volume 93.1 fL (80-94); Mean Platelet Vol. 9.9 fl (6.2-12.0); Monocyte# 0.51 X10^3/uL; Monocyte% 12.4 % (0-10); NRBC Flagged by Analyzer 0 % (0-5); Neutrophil # 1.49 X10^3/uL (2.7-7.7); Neutrophil % 36.2 % (47-70); Platelet Count 99 K/mm3 (150-450); RBC Distribution Width CV 14.6 % (11.6-14.6); RBC Distribution Width SD 50.8 fl (35.1-43.9); Red Blood Count 4.32 M/mm3 (4.6-6.2); White Blood Count 4.1 K/mm3 (4.4-11.0)
== END 2018-11-10 11:00 | disposition home or self-care (01) ==
LOC: LAB 09:38
PROVIDERS: Family Provider Family Medicine; PCP Family Medicine; Referring Provider Psychiatry & Neurology Child & Adolescent Psychiatry; Visit Provider Psychiatry & Neurology Child & Adolescent Psychiatry
DX: F31.81 Bipolar II disorder (principal); F41.9 Anxiety disorder, unspecified; Z51.81 Encounter for therapeutic drug level monitoring
CPT/HCPCS: 36415; 85025

== ENCOUNTER 2018-12-15 09:45 | Outpatient (RCR) | payer MEDICAID, SELFPAY ==
[2018-09-18 07:24] VITALS: BMI 27.1
[2018-11-19 11:22] LABS: Absolute Lymphocyte Count 1.91 X10^3/uL (0.83-4.51); Absolute Neutrophil Count 2.7 X10^3/uL (2.0-7.7); Basophil# 0.02 X10^3/uL; Basophil% 0.4 % (0-1); Eosinophil# 0.15 X10^3/uL; Eosinophils% 2.7 % (0-5); Hematocrit 41.1 % (40-54); Lymphocyte # 1.91 X10^3/ul (4.0); Lymphocyte % 34.4 % (19-41); Mean Corp Hgb Conc 31.6 g/dL (32-36); Mean Corpuscular Volume 91.7 fL (80-94); Mean Platelet Vol. 9.7 fl (6.2-12.0); Monocyte% 12.6 % (0-10); NRBC Flagged by Analyzer 0 % (0-5); Neutrophil # 2.72 X10^3/uL (2.7-7.7); Platelet Count 143 K/mm3 (150-450); RBC Distribution Width CV 14.3 % (11.6-14.6); Red Blood Count 4.48 M/mm3 (4.6-6.2); White Blood Count 5.6 K/mm3 (4.4-11.0)
[2018-11-19 11:55] LABS: Valproic Acid (Depakene) Level 73 ug/mL (50-100)
[2018-11-19 12:01] LABS: ALB/GLOB Ratio 0.8 RATIO (0.9-2.4); AST(SGOT) 10 U/L (15-37); Alanine Aminotransfer ALT/SGPT 10 U/L (16-61); Albumin, Serum 3.3 g/dL (3.2-5.0); Alkaline Phosphatase 49 U/L (45-117); Anion Gap 4 (5-15); BUN 14 mg/dL (7-18); BUN/Creat Ratio 17.7 RATIO (10-20); Calcium,Total 9.8 mg/dL (8.5-10.1); Chloride 108 mmol/L (98-107); Creatinine, Serum 0.79 mg/dL (0.70-1.30); EST Glomerular Filtration Rate 117 mL/min (>60); Est Glom Filt Rate - Afr Amer 141 mL/min (>60); Globulin 4.3 g/dL (2.2-4.2); Glucose 87 mg/dL (74-106); Potassium 4.2 mmol/L (3.5-5.1); Protein, Total 7.6 g/dL (6.4-8.2); Sodium Level 140 mmol/L (136-145)
[2018-11-24 10:18] LABS: Absolute Lymphocyte Count 2.38 X10^3/uL (0.83-4.51); Basophil# 0.03 X10^3/uL; Basophil% 0.5 % (0-1); Eosinophil# 0.18 X10^3/uL; Eosinophils% 2.8 % (0-5); Hematocrit 42.2 % (40-54); Hemoglobin 13.4 g/dL (13.0-16.5); Lymphocyte # 2.38 X10^3/ul (4.0); Lymphocyte % 37.4 % (19-41); Mean Corp Hgb Conc 31.8 g/dL (32-36); Mean Corpuscular Hgb 29.6 pg (27.0-32.0); Mean Corpuscular Volume 93.2 fL (80-94); Mean Platelet Vol. 9.3 fl (6.2-12.0); Monocyte# 0.69 X10^3/uL; Monocyte% 10.8 % (0-10); NRBC Flagged by Analyzer 0 % (0-5); Neutrophil # 3.02 X10^3/uL (2.7-7.7); Neutrophil % 47.6 % (47-70); Platelet Count 155 K/mm3 (150-450); RBC Distribution Width CV 14.3 % (11.6-14.6); RBC Distribution Width SD 48.9 fl (35.1-43.9); Red Blood Count 4.53 M/mm3 (4.6-6.2); White Blood Count 6.4 K/mm3 (4.4-11.0)
[2018-12-01 11:28] LABS: Absolute Neutrophil Count 3.8 X10^3/uL (2.0-7.7); Basophil# 0.02 X10^3/uL; Basophil% 0.3 % (0-1); Eosinophils% 1.5 % (0-5); Hematocrit 38.9 % (40-54); Hemoglobin 12.3 g/dL (13.0-16.5); Lymphocyte % 31.7 % (19-41); Mean Corp Hgb Conc 31.6 g/dL (32-36); Mean Corpuscular Hgb 29.6 pg (27.0-32.0); Mean Corpuscular Volume 93.5 fL (80-94); Mean Platelet Vol. 10.4 fl (6.2-12.0); Monocyte# 0.64 X10^3/uL; Monocyte% 9.7 % (0-10); NRBC Flagged by Analyzer 0 % (0-5); Neutrophil # 3.75 X10^3/uL (2.7-7.7); Neutrophil % 56.5 % (47-70); Platelet Count 121 K/mm3 (150-450); RBC Distribution Width CV 14.6 % (11.6-14.6); RBC Distribution Width SD 50.9 fl (35.1-43.9); Red Blood Count 4.16 M/mm3 (4.6-6.2); White Blood Count 6.6 K/mm3 (4.4-11.0)
[2018-12-08 10:27] LABS: Absolute Lymphocyte Count 1.86 X10^3/uL (0.83-4.51); Basophil# 0.03 X10^3/uL; Basophil% 0.7 % (0-1); Eosinophil# 0.12 X10^3/uL; Eosinophils% 2.6 % (0-5); Hematocrit 42.2 % (40-54); Hemoglobin 13.3 g/dL (13.0-16.5); Lymphocyte # 1.86 X10^3/ul (4.0); Lymphocyte % 41.1 % (19-41); Mean Corp Hgb Conc 31.5 g/dL (32-36); Mean Corpuscular Hgb 29.7 pg (27.0-32.0); Mean Corpuscular Volume 94.2 fL (80-94); Mean Platelet Vol. 9.8 fl (6.2-12.0); NRBC Flagged by Analyzer 0 % (0-5); Neutrophil # 2.01 X10^3/uL (2.7-7.7); Neutrophil % 44.4 % (47-70); Platelet Count 154 K/mm3 (150-450); RBC Distribution Width CV 14.3 % (11.6-14.6); Red Blood Count 4.48 M/mm3 (4.6-6.2); White Blood Count 4.5 K/mm3 (4.4-11.0)
[2018-12-15 10:51] LABS: Absolute Lymphocyte Count 2.11 X10^3/uL (0.83-4.51); Absolute Neutrophil Count 1.6 X10^3/uL (2.0-7.7); Basophil# 0.03 X10^3/uL; Basophil% 0.7 % (0-1); Eosinophil# 0.12 X10^3/uL; Eosinophils% 2.7 % (0-5); Hematocrit 41.8 % (40-54); Hemoglobin 13.4 g/dL (13.0-16.5); Lymphocyte # 2.11 X10^3/ul (4.0); Lymphocyte % 47.3 % (19-41); Mean Corp Hgb Conc 32.1 g/dL (32-36); Mean Corpuscular Hgb 30.1 pg (27.0-32.0); Mean Corpuscular Volume 93.9 fL (80-94); Mean Platelet Vol. 10.2 fl (6.2-12.0); Monocyte# 0.56 X10^3/uL; Monocyte% 12.6 % (0-10); NRBC Flagged by Analyzer 0 % (0-5); Neutrophil # 1.62 X10^3/uL (2.7-7.7); Neutrophil % 36.3 % (47-70); Platelet Count 117 K/mm3 (150-450); RBC Distribution Width CV 14.6 % (11.6-14.6); RBC Distribution Width SD 50.2 fl (35.1-43.9); Red Blood Count 4.45 M/mm3 (4.6-6.2); White Blood Count 4.5 K/mm3 (4.4-11.0)
== END 2018-12-15 18:00 | disposition home or self-care (01) ==
LOC: LAB 09:45
PROVIDERS: Family Provider Family Medicine; PCP Family Medicine; Referring Provider Psychiatry & Neurology Child & Adolescent Psychiatry; Visit Provider Psychiatry & Neurology Child & Adolescent Psychiatry
DX: F31.81 Bipolar II disorder (principal); F41.9 Anxiety disorder, unspecified; Z51.81 Encounter for therapeutic drug level monitoring
CPT/HCPCS: 36415; 80053; 80164; 85025

== ENCOUNTER 2019-01-12 09:54 | Outpatient (RCR) | payer MEDICAID, SELFPAY ==
[2018-09-18 07:24] VITALS: BMI 27.1
[2018-12-22 10:44] LABS: Absolute Lymphocyte Count 1.93 X10^3/uL (0.83-4.51); Absolute Neutrophil Count 1.7 X10^3/uL (2.0-7.7); Basophil# 0.03 X10^3/uL; Basophil% 0.7 % (0-1); Eosinophil# 0.12 X10^3/uL; Eosinophils% 2.8 % (0-5); Hematocrit 43.5 % (40-54); Hemoglobin 13.6 g/dL (13.0-16.5); Lymphocyte # 1.93 X10^3/ul (4.0); Lymphocyte % 45.2 % (19-41); Mean Corp Hgb Conc 31.3 g/dL (32-36); Mean Corpuscular Hgb 29.2 pg (27.0-32.0); Mean Corpuscular Volume 93.3 fL (80-94); Mean Platelet Vol. 10.2 fl (6.2-12.0); Monocyte# 0.44 X10^3/uL; Monocyte% 10.3 % (0-10); NRBC Flagged by Analyzer 0 % (0-5); Neutrophil # 1.74 X10^3/uL (2.7-7.7); Neutrophil % 40.8 % (47-70); Platelet Count 138 K/mm3 (150-450); RBC Distribution Width CV 14.3 % (11.6-14.6); RBC Distribution Width SD 49.4 fl (35.1-43.9); Red Blood Count 4.66 M/mm3 (4.6-6.2); White Blood Count 4.3 K/mm3 (4.4-11.0)
[2018-12-22 11:22] LABS: ALB/GLOB Ratio 0.8 RATIO (0.9-2.4); AST(SGOT) 11 U/L (15-37); Alanine Aminotransfer ALT/SGPT 13 U/L (16-61); Albumin, Serum 3.4 g/dL (3.2-5.0); Alkaline Phosphatase 48 U/L (45-117); Anion Gap 5 (5-15); BUN 13 mg/dL (7-18); Calcium,Total 9.2 mg/dL (8.5-10.1); Chloride 105 mmol/L (98-107); Creatinine, Serum 0.86 mg/dL (0.70-1.30); EST Glomerular Filtration Rate 105 mL/min (>60); Est Glom Filt Rate - Afr Amer 128 mL/min (>60); Globulin 4.4 g/dL (2.2-4.2); Glucose 87 mg/dL (74-106); Potassium 4.3 mmol/L (3.5-5.1); Protein, Total 7.8 g/dL (6.4-8.2); Sodium Level 139 mmol/L (136-145)
[2018-12-22 11:25] LABS: Valproic Acid (Depakene) Level 85 ug/mL (50-100)
[2018-12-30 10:19] LABS: Absolute Lymphocyte Count 1.88 X10^3/uL (0.83-4.51); Absolute Neutrophil Count 1.9 X10^3/uL (2.0-7.7); Basophil# 0.03 X10^3/uL; Basophil% 0.7 % (0-1); Eosinophil# 0.13 X10^3/uL; Eosinophils% 2.9 % (0-5); Hematocrit 42.3 % (40-54); Hemoglobin 13.4 g/dL (13.0-16.5); Lymphocyte # 1.88 X10^3/ul (4.0); Lymphocyte % 42.3 % (19-41); Mean Corp Hgb Conc 31.7 g/dL (32-36); Mean Corpuscular Hgb 29.8 pg (27.0-32.0); Mean Corpuscular Volume 94.2 fL (80-94); Mean Platelet Vol. 9.9 fl (6.2-12.0); Monocyte# 0.45 X10^3/uL; Monocyte% 10.1 % (0-10); NRBC Flagged by Analyzer 0 % (0-5); Neutrophil # 1.93 X10^3/uL (2.7-7.7); Neutrophil % 43.5 % (47-70); Platelet Count 119 K/mm3 (150-450); RBC Distribution Width CV 14.5 % (11.6-14.6); RBC Distribution Width SD 50.2 fl (35.1-43.9); Red Blood Count 4.49 M/mm3 (4.6-6.2); White Blood Count 4.4 K/mm3 (4.4-11.0)
[2019-01-05 10:59] LABS: Absolute Lymphocyte Count 2.07 X10^3/uL (0.83-4.51); Absolute Neutrophil Count 2.3 X10^3/uL (2.0-7.7); Basophil# 0.01 X10^3/uL; Basophil% 0.2 % (0-1); Eosinophil# 0.18 X10^3/uL; Eosinophils% 3.5 % (0-5); Hematocrit 40.9 % (40-54); Lymphocyte # 2.07 X10^3/ul (4.0); Lymphocyte % 40.2 % (19-41); Mean Corp Hgb Conc 31.8 g/dL (32-36); Mean Corpuscular Hgb 29.6 pg (27.0-32.0); Mean Corpuscular Volume 93.2 fL (80-94); Mean Platelet Vol. 10.1 fl (6.2-12.0); Monocyte# 0.62 X10^3/uL; NRBC Flagged by Analyzer 0 % (0-5); Neutrophil # 2.25 X10^3/uL (2.7-7.7); Neutrophil % 43.7 % (47-70); Platelet Count 113 K/mm3 (150-450); RBC Distribution Width CV 14.5 % (11.6-14.6); Red Blood Count 4.39 M/mm3 (4.6-6.2); White Blood Count 5.2 K/mm3 (4.4-11.0)
[2019-01-12 10:31] LABS: Absolute Lymphocyte Count 1.63 X10^3/uL (0.83-4.51); Absolute Neutrophil Count 1.9 X10^3/uL (2.0-7.7); Basophil# 0.01 X10^3/uL; Basophil% 0.2 % (0-1); Eosinophil# 0.14 X10^3/uL; Eosinophils% 3.4 % (0-5); Hematocrit 43.1 % (40-54); Hemoglobin 13.7 g/dL (13.0-16.5); Lymphocyte # 1.63 X10^3/ul (4.0); Lymphocyte % 39.8 % (19-41); Mean Corp Hgb Conc 31.8 g/dL (32-36); Mean Corpuscular Hgb 29.3 pg (27.0-32.0); Mean Corpuscular Volume 92.3 fL (80-94); Mean Platelet Vol. 9.9 fl (6.2-12.0); Monocyte# 0.41 X10^3/uL; NRBC Flagged by Analyzer 0 % (0-5); Neutrophil # 1.89 X10^3/uL (2.7-7.7); Neutrophil % 46.1 % (47-70); Platelet Count 123 K/mm3 (150-450); RBC Distribution Width CV 14.4 % (11.6-14.6); RBC Distribution Width SD 48.7 fl (35.1-43.9); Red Blood Count 4.67 M/mm3 (4.6-6.2); White Blood Count 4.1 K/mm3 (4.4-11.0)
[2019-01-12 11:05] LABS: Valproic Acid (Depakene) Level 95 ug/mL (50-100)
[2019-01-12 11:21] LABS: ALB/GLOB Ratio 0.8 RATIO (0.9-2.4); AST(SGOT) 10 U/L (15-37); Alanine Aminotransfer ALT/SGPT 14 U/L (16-61); Albumin, Serum 3.5 g/dL (3.2-5.0); Alkaline Phosphatase 47 U/L (45-117); Anion Gap 3 (5-15); BUN 14 mg/dL (7-18); BUN/Creat Ratio 16.2 RATIO (10-20); Calcium,Total 9.4 mg/dL (8.5-10.1); Chloride 105 mmol/L (98-107); Creatinine, Serum 0.87 mg/dL (0.70-1.30); EST Glomerular Filtration Rate 105 mL/min (>60); Est Glom Filt Rate - Afr Amer 127 mL/min (>60); Globulin 4.2 g/dL (2.2-4.2); Glucose 80 mg/dL (74-106); Potassium 4.2 mmol/L (3.5-5.1); Protein, Total 7.7 g/dL (6.4-8.2); Sodium Level 140 mmol/L (136-145)
== END 2019-01-12 18:00 | disposition home or self-care (01) ==
LOC: LAB 09:54
PROVIDERS: Family Provider Family Medicine; PCP Family Medicine; Referring Provider Psychiatry & Neurology Child & Adolescent Psychiatry; Visit Provider Psychiatry & Neurology Child & Adolescent Psychiatry
DX: F31.81 Bipolar II disorder (principal); F41.9 Anxiety disorder, unspecified; Z51.81 Encounter for therapeutic drug level monitoring
CPT/HCPCS: 36415; 80053; 80164; 85025

== ENCOUNTER 2019-02-17 09:44 | Outpatient (RCR) | payer MEDICAID, SELFPAY ==
[2018-09-18 07:24] VITALS: BMI 27.1
[2019-01-19 10:42] LABS: Absolute Lymphocyte Count 1.75 X10^3/uL (0.83-4.51); Absolute Neutrophil Count 2.2 X10^3/uL (2.0-7.7); Basophil# 0.02 X10^3/uL; Basophil% 0.4 % (0-1); Eosinophil# 0.11 X10^3/uL; Eosinophils% 2.3 % (0-5); Hematocrit 40.7 % (40-54); Hemoglobin 13.3 g/dL (13.0-16.5); Lymphocyte # 1.75 X10^3/ul (4.0); Lymphocyte % 37.2 % (19-41); Mean Corp Hgb Conc 32.7 g/dL (32-36); Mean Corpuscular Volume 91.9 fL (80-94); Mean Platelet Vol. 10.3 fl (6.2-12.0); Monocyte% 12.7 % (0-10); NRBC Flagged by Analyzer 0 % (0-5); Neutrophil # 2.21 X10^3/uL (2.7-7.7); Platelet Count 117 K/mm3 (150-450); RBC Distribution Width CV 14.2 % (11.6-14.6); RBC Distribution Width SD 47.8 fl (35.1-43.9); Red Blood Count 4.43 M/mm3 (4.6-6.2); White Blood Count 4.7 K/mm3 (4.4-11.0)
[2019-01-26 10:18] LABS: Absolute Lymphocyte Count 1.92 X10^3/uL (0.83-4.51); Absolute Neutrophil Count 2.1 X10^3/uL (2.0-7.7); Basophil# 0.02 X10^3/uL; Basophil% 0.4 % (0-1); Eosinophil# 0.12 X10^3/uL; Eosinophils% 2.6 % (0-5); Hematocrit 41.3 % (40-54); Hemoglobin 13.1 g/dL (13.0-16.5); Lymphocyte # 1.92 X10^3/ul (4.0); Lymphocyte % 40.9 % (19-41); Mean Corp Hgb Conc 31.7 g/dL (32-36); Mean Corpuscular Hgb 29.7 pg (27.0-32.0); Mean Corpuscular Volume 93.7 fL (80-94); Mean Platelet Vol. 10.1 fl (6.2-12.0); Monocyte# 0.48 X10^3/uL; Monocyte% 10.2 % (0-10); NRBC Flagged by Analyzer 0 % (0-5); Neutrophil # 2.13 X10^3/uL (2.7-7.7); Neutrophil % 45.5 % (47-70); Platelet Count 128 K/mm3 (150-450); RBC Distribution Width CV 14.6 % (11.6-14.6); RBC Distribution Width SD 50.9 fl (35.1-43.9); Red Blood Count 4.41 M/mm3 (4.6-6.2); White Blood Count 4.7 K/mm3 (4.4-11.0)
[2019-02-02 11:17] LABS: Absolute Lymphocyte Count 2.15 X10^3/uL (0.83-4.51); Absolute Neutrophil Count 2.7 X10^3/uL (2.0-7.7); Basophil# 0.02 X10^3/uL; Basophil% 0.4 % (0-1); Eosinophil# 0.14 X10^3/uL; Eosinophils% 2.5 % (0-5); Hematocrit 41.3 % (40-54); Hemoglobin 13.2 g/dL (13.0-16.5); Lymphocyte # 2.15 X10^3/ul (4.0); Lymphocyte % 37.8 % (19-41); Mean Corpuscular Hgb 29.9 pg (27.0-32.0); Mean Corpuscular Volume 93.4 fL (80-94); Mean Platelet Vol. 10.2 fl (6.2-12.0); Monocyte# 0.69 X10^3/uL; Monocyte% 12.1 % (0-10); NRBC Flagged by Analyzer 0 % (0-5); Neutrophil # 2.67 X10^3/uL (2.7-7.7); Neutrophil % 46.8 % (47-70); Platelet Count 118 K/mm3 (150-450); RBC Distribution Width CV 14.5 % (11.6-14.6); RBC Distribution Width SD 49.9 fl (35.1-43.9); Red Blood Count 4.42 M/mm3 (4.6-6.2); White Blood Count 5.7 K/mm3 (4.4-11.0)
[2019-02-09 11:18] LABS: Absolute Lymphocyte Count 1.67 X10^3/uL (0.83-4.51); Basophil# 0.02 X10^3/uL; Basophil% 0.5 % (0-1); Eosinophil# 0.14 X10^3/uL; Eosinophils% 3.2 % (0-5); Hematocrit 42.8 % (40-54); Hemoglobin 13.6 g/dL (13.0-16.5); Lymphocyte # 1.67 X10^3/ul (4.0); Lymphocyte % 38.7 % (19-41); Mean Corp Hgb Conc 31.8 g/dL (32-36); Mean Corpuscular Hgb 29.5 pg (27.0-32.0); Mean Corpuscular Volume 92.8 fL (80-94); Mean Platelet Vol. 10.1 fl (6.2-12.0); Monocyte# 0.44 X10^3/uL; Monocyte% 10.2 % (0-10); NRBC Flagged by Analyzer 0 % (0-5); Neutrophil # 2.03 X10^3/uL (2.7-7.7); Neutrophil % 46.9 % (47-70); Platelet Count 143 K/mm3 (150-450); RBC Distribution Width CV 14.6 % (11.6-14.6); RBC Distribution Width SD 49.1 fl (35.1-43.9); Red Blood Count 4.61 M/mm3 (4.6-6.2); White Blood Count 4.3 K/mm3 (4.4-11.0)
[2019-02-17 10:48] LABS: Absolute Lymphocyte Count 1.53 X10^3/uL (0.83-4.51); Absolute Neutrophil Count 2.1 X10^3/uL (2.0-7.7); Basophil# 0.02 X10^3/uL; Basophil% 0.5 % (0-1); Eosinophil# 0.11 X10^3/uL; Eosinophils% 2.6 % (0-5); Hematocrit 43.1 % (40-54); Hemoglobin 13.7 g/dL (13.0-16.5); Lymphocyte # 1.53 X10^3/ul (4.0); Mean Corp Hgb Conc 31.8 g/dL (32-36); Mean Corpuscular Hgb 29.5 pg (27.0-32.0); Mean Corpuscular Volume 92.9 fL (80-94); Monocyte# 0.48 X10^3/uL; Monocyte% 11.3 % (0-10); NRBC Flagged by Analyzer 0 % (0-5); Neutrophil % 49.4 % (47-70); Platelet Count 141 K/mm3 (150-450); RBC Distribution Width CV 14.3 % (11.6-14.6); RBC Distribution Width SD 48.7 fl (35.1-43.9); Red Blood Count 4.64 M/mm3 (4.6-6.2); White Blood Count 4.3 K/mm3 (4.4-11.0)
[2019-02-17 11:10] LABS: Valproic Acid (Depakene) Level 91 ug/mL (50-100)
[2019-02-17 11:13] LABS: ALB/GLOB Ratio 0.8 RATIO (0.9-2.4); AST(SGOT) 15 U/L (15-37); Alanine Aminotransfer ALT/SGPT 21 U/L (16-61); Albumin, Serum 3.7 g/dL (3.2-5.0); Alkaline Phosphatase 51 U/L (45-117); Anion Gap 4 (5-15); BUN 12 mg/dL (7-18); BUN/Creat Ratio 13.6 RATIO (10-20); Calcium,Total 9.4 mg/dL (8.5-10.1); Chloride 104 mmol/L (98-107); Creatinine, Serum 0.88 mg/dL (0.70-1.30); EST Glomerular Filtration Rate 103 mL/min (>60); Est Glom Filt Rate - Afr Amer 124 mL/min (>60); Globulin 4.4 g/dL (2.2-4.2); Glucose 80 mg/dL (74-106); Potassium 4.5 mmol/L (3.5-5.1); Protein, Total 8.1 g/dL (6.4-8.2); Sodium Level 140 mmol/L (136-145)
== END 2019-02-17 18:00 | disposition home or self-care (01) ==
LOC: LAB 09:44
PROVIDERS: Family Provider Family Medicine; PCP Family Medicine; Referring Provider Psychiatry & Neurology Child & Adolescent Psychiatry; Visit Provider Psychiatry & Neurology Child & Adolescent Psychiatry
DX: F31.9 Bipolar disorder, unspecified (principal)
CPT/HCPCS: 36415; 80053; 80164; 85025

== ENCOUNTER 2019-03-16 09:47 | Outpatient (RCR) | payer MEDICAID, SELFPAY ==
[2018-09-18 07:24] VITALS: BMI 27.1
[2019-02-23 10:31] LABS: Absolute Lymphocyte Count 2.07 X10^3/uL (0.83-4.51); Absolute Neutrophil Count 1.6 X10^3/uL (2.0-7.7); Basophil# 0.02 X10^3/uL; Basophil% 0.4 % (0-1); Eosinophil# 0.15 X10^3/uL; Eosinophils% 3.4 % (0-5); Hemoglobin 13.4 g/dL (13.0-16.5); Lymphocyte # 2.07 X10^3/ul (4.0); Lymphocyte % 46.5 % (19-41); Mean Corp Hgb Conc 31.9 g/dL (32-36); Mean Corpuscular Hgb 29.6 pg (27.0-32.0); Mean Corpuscular Volume 92.9 fL (80-94); Mean Platelet Vol. 10.2 fl (6.2-12.0); Monocyte# 0.55 X10^3/uL; Monocyte% 12.4 % (0-10); NRBC Flagged by Analyzer 0 % (0-5); Neutrophil # 1.64 X10^3/uL (2.7-7.7); Neutrophil % 36.9 % (47-70); Platelet Count 127 K/mm3 (150-450); RBC Distribution Width SD 48.1 fl (35.1-43.9); Red Blood Count 4.52 M/mm3 (4.6-6.2); White Blood Count 4.5 K/mm3 (4.4-11.0)
[2019-03-02 10:26] LABS: Absolute Lymphocyte Count 1.91 X10^3/uL (0.83-4.51); Absolute Neutrophil Count 2.2 X10^3/uL (2.0-7.7); Basophil# 0.01 X10^3/uL; Basophil% 0.2 % (0-1); Eosinophil# 0.13 X10^3/uL; Eosinophils% 2.7 % (0-5); Lymphocyte # 1.91 X10^3/ul (4.0); Lymphocyte % 39.2 % (19-41); Mean Corp Hgb Conc 31.7 g/dL (32-36); Mean Corpuscular Hgb 29.5 pg (27.0-32.0); Mean Platelet Vol. 10.2 fl (6.2-12.0); Monocyte# 0.62 X10^3/uL; Monocyte% 12.7 % (0-10); NRBC Flagged by Analyzer 0 % (0-5); Neutrophil # 2.19 X10^3/uL (2.7-7.7); Platelet Count 110 K/mm3 (150-450); RBC Distribution Width CV 14.2 % (11.6-14.6); RBC Distribution Width SD 48.6 fl (35.1-43.9); Red Blood Count 4.41 M/mm3 (4.6-6.2); White Blood Count 4.9 K/mm3 (4.4-11.0)
[2019-03-10 11:00] LABS: Absolute Lymphocyte Count 2.64 X10^3/uL (0.83-4.51); Absolute Neutrophil Count 2.3 X10^3/uL (2.0-7.7); Basophil# 0.01 X10^3/uL; Basophil% 0.2 % (0-1); Eosinophil# 0.14 X10^3/uL; Eosinophils% 2.4 % (0-5); Hematocrit 42.8 % (40-54); Hemoglobin 13.6 g/dL (13.0-16.5); Lymphocyte # 2.64 X10^3/ul (4.0); Lymphocyte % 45.5 % (19-41); Mean Corp Hgb Conc 31.8 g/dL (32-36); Mean Corpuscular Hgb 29.6 pg (27.0-32.0); Mean Platelet Vol. 9.9 fl (6.2-12.0); Monocyte# 0.68 X10^3/uL; Monocyte% 11.7 % (0-10); NRBC Flagged by Analyzer 0 % (0-5); Neutrophil # 2.31 X10^3/uL (2.7-7.7); Neutrophil % 39.9 % (47-70); Platelet Count 136 K/mm3 (150-450); RBC Distribution Width CV 14.1 % (11.6-14.6); White Blood Count 5.8 K/mm3 (4.4-11.0)
[2019-03-16 11:02] LABS: Absolute Lymphocyte Count 1.68 X10^3/uL (0.83-4.51); Absolute Neutrophil Count 1.7 X10^3/uL (2.0-7.7); Basophil# 0.01 X10^3/uL; Basophil% 0.3 % (0-1); Eosinophil# 0.11 X10^3/uL; Eosinophils% 2.8 % (0-5); Hematocrit 42.1 % (40-54); Hemoglobin 13.4 g/dL (13.0-16.5); Lymphocyte # 1.68 X10^3/ul (4.0); Lymphocyte % 42.3 % (19-41); Mean Corp Hgb Conc 31.8 g/dL (32-36); Mean Corpuscular Hgb 29.6 pg (27.0-32.0); Mean Corpuscular Volume 92.9 fL (80-94); Mean Platelet Vol. 10.1 fl (6.2-12.0); Monocyte# 0.49 X10^3/uL; Monocyte% 12.3 % (0-10); NRBC Flagged by Analyzer 0 % (0-5); Neutrophil # 1.66 X10^3/uL (2.7-7.7); Neutrophil % 41.8 % (47-70); Platelet Count 117 K/mm3 (150-450); RBC Distribution Width CV 14.1 % (11.6-14.6); RBC Distribution Width SD 47.9 fl (35.1-43.9); Red Blood Count 4.53 M/mm3 (4.6-6.2)
[2019-03-16 11:50] LABS: ALB/GLOB Ratio 0.8 RATIO (0.9-2.4); AST(SGOT) 10 U/L (15-37); Alanine Aminotransfer ALT/SGPT 14 U/L (16-61); Albumin, Serum 3.3 g/dL (3.2-5.0); Alkaline Phosphatase 45 U/L (45-117); Anion Gap 1 (5-15); BUN 7 mg/dL (7-18); BUN/Creat Ratio 7.9 RATIO (10-20); Calcium,Total 9.3 mg/dL (8.5-10.1); Chloride 106 mmol/L (98-107); Creatinine, Serum 0.88 mg/dL (0.70-1.30); EST Glomerular Filtration Rate 103 mL/min (>60); Est Glom Filt Rate - Afr Amer 125 mL/min (>60); Globulin 4.2 g/dL (2.2-4.2); Glucose 78 mg/dL (74-106); Potassium 4.2 mmol/L (3.5-5.1); Protein, Total 7.5 g/dL (6.4-8.2); Sodium Level 139 mmol/L (136-145); Valproic Acid (Depakene) Level 84 ug/mL (50-100)
== END 2019-03-16 18:00 | disposition home or self-care (01) ==
LOC: LAB 09:47
PROVIDERS: Family Provider Family Medicine; PCP Family Medicine; Referring Provider Psychiatry & Neurology Child & Adolescent Psychiatry; Visit Provider Psychiatry & Neurology Child & Adolescent Psychiatry
DX: F31.81 Bipolar II disorder (principal)
CPT/HCPCS: 36415; 80053; 80164; 85025

== ENCOUNTER 2019-04-14 09:27 | Outpatient (RCR) | payer MEDICAID, SELFPAY ==
[2018-09-18 07:24] VITALS: BMI 27.1
[2019-03-23 11:13] LABS: Absolute Neutrophil Count 2.6 X10^3/uL (2.0-7.7); Basophil# 0.02 X10^3/uL; Basophil% 0.4 % (0-1); Eosinophil# 0.16 X10^3/uL; Hematocrit 41.9 % (40-54); Hemoglobin 13.3 g/dL (13.0-16.5); Lymphocyte % 35.7 % (19-41); Mean Corp Hgb Conc 31.7 g/dL (32-36); Mean Corpuscular Hgb 29.6 pg (27.0-32.0); Mean Corpuscular Volume 93.3 fL (80-94); Monocyte# 0.66 X10^3/uL; Monocyte% 12.4 % (0-10); NRBC Flagged by Analyzer 0 % (0-5); Neutrophil # 2.55 X10^3/uL (2.7-7.7); Neutrophil % 47.9 % (47-70); Platelet Count 144 K/mm3 (150-450); RBC Distribution Width CV 14.3 % (11.6-14.6); RBC Distribution Width SD 48.9 fl (35.1-43.9); Red Blood Count 4.49 M/mm3 (4.6-6.2); White Blood Count 5.3 K/mm3 (4.4-11.0)
[2019-03-30 11:16] LABS: Absolute Lymphocyte Count 1.93 X10^3/uL (0.83-4.51); Absolute Neutrophil Count 2.3 X10^3/uL (2.0-7.7); Basophil# 0.03 X10^3/uL; Basophil% 0.6 % (0-1); Eosinophil# 0.11 X10^3/uL; Eosinophils% 2.2 % (0-5); Hematocrit 42.6 % (40-54); Hemoglobin 13.4 g/dL (13.0-16.5); Lymphocyte # 1.93 X10^3/ul (4.0); Lymphocyte % 38.7 % (19-41); Mean Corp Hgb Conc 31.5 g/dL (32-36); Mean Corpuscular Hgb 29.5 pg (27.0-32.0); Mean Corpuscular Volume 93.6 fL (80-94); Mean Platelet Vol. 10.1 fl (6.2-12.0); Monocyte# 0.64 X10^3/uL; Monocyte% 12.8 % (0-10); NRBC Flagged by Analyzer 0 % (0-5); Neutrophil # 2.27 X10^3/uL (2.7-7.7); Neutrophil % 45.5 % (47-70); Platelet Count 123 K/mm3 (150-450); RBC Distribution Width CV 14.2 % (11.6-14.6); RBC Distribution Width SD 49.2 fl (35.1-43.9); Red Blood Count 4.55 M/mm3 (4.6-6.2)
[2019-04-07 11:01] LABS: Absolute Lymphocyte Count 1.65 X10^3/uL (0.83-4.51); Absolute Neutrophil Count 2.1 X10^3/uL (2.0-7.7); Basophil# 0.02 X10^3/uL; Basophil% 0.5 % (0-1); Eosinophil# 0.12 X10^3/uL; Eosinophils% 2.7 % (0-5); Hematocrit 40.9 % (40-54); Hemoglobin 13.3 g/dL (13.0-16.5); Lymphocyte # 1.65 X10^3/ul (4.0); Lymphocyte % 37.8 % (19-41); Mean Corp Hgb Conc 32.5 g/dL (32-36); Mean Corpuscular Volume 92.3 fL (80-94); Mean Platelet Vol. 10.2 fl (6.2-12.0); Monocyte# 0.49 X10^3/uL; Monocyte% 11.2 % (0-10); NRBC Flagged by Analyzer 0 % (0-5); Neutrophil # 2.08 X10^3/uL (2.7-7.7); Neutrophil % 47.6 % (47-70); Platelet Count 120 K/mm3 (150-450); RBC Distribution Width CV 14.1 % (11.6-14.6); RBC Distribution Width SD 47.9 fl (35.1-43.9); Red Blood Count 4.43 M/mm3 (4.6-6.2); White Blood Count 4.4 K/mm3 (4.4-11.0)
[2019-04-14 10:15] LABS: Absolute Neutrophil Count 2.1 X10^3/uL (2.0-7.7); Basophil# 0.02 X10^3/uL; Basophil% 0.5 % (0-1); Eosinophil# 0.14 X10^3/uL; Eosinophils% 3.2 % (0-5); Hematocrit 42.6 % (40-54); Hemoglobin 13.7 g/dL (13.0-16.5); Lymphocyte % 38.4 % (19-41); Mean Corp Hgb Conc 32.2 g/dL (32-36); Mean Corpuscular Hgb 29.8 pg (27.0-32.0); Mean Corpuscular Volume 92.6 fL (80-94); Mean Platelet Vol. 9.9 fl (6.2-12.0); Monocyte# 0.49 X10^3/uL; Monocyte% 11.1 % (0-10); NRBC Flagged by Analyzer 0 % (0-5); Neutrophil # 2.07 X10^3/uL (2.7-7.7); Neutrophil % 46.6 % (47-70); Platelet Count 121 K/mm3 (150-450); RBC Distribution Width CV 14.3 % (11.6-14.6); RBC Distribution Width SD 48.6 fl (35.1-43.9); White Blood Count 4.4 K/mm3 (4.4-11.0)
[2019-04-14 10:55] LABS: Valproic Acid (Depakene) Level 92 ug/mL (50-100)
[2019-04-14 11:05] LABS: ALB/GLOB Ratio 0.8 RATIO (0.9-2.4); AST(SGOT) 11 U/L (15-37); Alanine Aminotransfer ALT/SGPT 13 U/L (16-61); Albumin, Serum 3.4 g/dL (3.2-5.0); Alkaline Phosphatase 46 U/L (45-117); Anion Gap 4 (5-15); BUN 17 mg/dL (7-18); BUN/Creat Ratio 17.9 RATIO (10-20); Calcium,Total 9.4 mg/dL (8.5-10.1); Chloride 111 mmol/L (98-107); Creatinine, Serum 0.95 mg/dL (0.70-1.30); EST Glomerular Filtration Rate 94 mL/min (>60); Est Glom Filt Rate - Afr Amer 114 mL/min (>60); Globulin 4.4 g/dL (2.2-4.2); Glucose 85 mg/dL (74-106); Potassium 4.2 mmol/L (3.5-5.1); Protein, Total 7.8 g/dL (6.4-8.2); Sodium Level 146 mmol/L (136-145)
== END 2019-04-14 18:00 | disposition home or self-care (01) ==
LOC: LAB 09:27
PROVIDERS: Family Provider Family Medicine; PCP Family Medicine; Referring Provider Psychiatry & Neurology Child & Adolescent Psychiatry; Visit Provider Psychiatry & Neurology Child & Adolescent Psychiatry
DX: F41.9 Anxiety disorder, unspecified (principal); Z51.81 Encounter for therapeutic drug level monitoring
CPT/HCPCS: 36415; 80053; 80164; 85025

== ENCOUNTER 2019-05-19 10:56 | Outpatient (RCR) | payer MEDICAID, SELFPAY ==
[2018-09-18 07:24] VITALS: BMI 27.1
[2019-04-20 10:38] LABS: Absolute Neutrophil Count 2.4 X10^3/uL (2.0-7.7); Basophil# 0.03 X10^3/uL; Basophil% 0.6 % (0-1); Eosinophil# 0.16 X10^3/uL; Hematocrit 41.1 % (40-54); Hemoglobin 13.4 g/dL (13.0-16.5); Lymphocyte % 39.3 % (19-41); Mean Corp Hgb Conc 32.6 g/dL (32-36); Mean Corpuscular Hgb 29.8 pg (27.0-32.0); Mean Corpuscular Volume 91.3 fL (80-94); Mean Platelet Vol. 9.8 fl (6.2-12.0); Monocyte# 0.69 X10^3/uL; Monocyte% 12.9 % (0-10); NRBC Flagged by Analyzer 0 % (0-5); Neutrophil # 2.35 X10^3/uL (2.7-7.7); Platelet Count 133 K/mm3 (150-450); RBC Distribution Width CV 13.9 % (11.6-14.6); RBC Distribution Width SD 46.7 fl (35.1-43.9); White Blood Count 5.3 K/mm3 (4.4-11.0)
[2019-04-27 11:06] LABS: Absolute Lymphocyte Count 2.13 X10^3/uL (0.83-4.51); Absolute Neutrophil Count 2.7 X10^3/uL (2.0-7.7); Basophil# 0.02 X10^3/uL; Basophil% 0.4 % (0-1); Eosinophil# 0.15 X10^3/uL; Eosinophils% 2.7 % (0-5); Hematocrit 41.3 % (40-54); Hemoglobin 13.2 g/dL (13.0-16.5); Lymphocyte # 2.13 X10^3/ul (4.0); Lymphocyte % 37.6 % (19-41); Mean Corpuscular Hgb 29.7 pg (27.0-32.0); Mean Platelet Vol. 9.6 fl (6.2-12.0); Monocyte# 0.68 X10^3/uL; NRBC Flagged by Analyzer 0 % (0-5); Neutrophil # 2.65 X10^3/uL (2.7-7.7); Neutrophil % 46.8 % (47-70); Platelet Count 144 K/mm3 (150-450); RBC Distribution Width CV 14.3 % (11.6-14.6); RBC Distribution Width SD 48.4 fl (35.1-43.9); Red Blood Count 4.44 M/mm3 (4.6-6.2); White Blood Count 5.7 K/mm3 (4.4-11.0)
[2019-05-04 11:28] LABS: Absolute Lymphocyte Count 1.35 X10^3/uL (0.83-4.51); Absolute Neutrophil Count 2.3 X10^3/uL (2.0-7.7); Basophil# 0.02 X10^3/uL; Basophil% 0.4 % (0-1); Eosinophil# 0.13 X10^3/uL; Eosinophils% 2.9 % (0-5); Hematocrit 42.8 % (40-54); Hemoglobin 13.7 g/dL (13.0-16.5); Lymphocyte # 1.35 X10^3/ul (4.0); Lymphocyte % 30.2 % (19-41); Mean Corpuscular Hgb 29.3 pg (27.0-32.0); Mean Corpuscular Volume 91.6 fL (80-94); Monocyte# 0.61 X10^3/uL; Monocyte% 13.6 % (0-10); NRBC Flagged by Analyzer 0 % (0-5); Neutrophil # 2.34 X10^3/uL (2.7-7.7); Neutrophil % 52.5 % (47-70); Platelet Count 134 K/mm3 (150-450); RBC Distribution Width SD 47.2 fl (35.1-43.9); Red Blood Count 4.67 M/mm3 (4.6-6.2); White Blood Count 4.5 K/mm3 (4.4-11.0)
[2019-05-11 12:32] LABS: Absolute Lymphocyte Count 1.79 X10^3/uL (0.83-4.51); Absolute Neutrophil Count 1.8 X10^3/uL (2.0-7.7); Basophil# 0.02 X10^3/uL; Basophil% 0.5 % (0-1); Eosinophil# 0.12 X10^3/uL; Eosinophils% 2.8 % (0-5); Hematocrit 41.6 % (40-54); Hemoglobin 13.3 g/dL (13.0-16.5); Lymphocyte # 1.79 X10^3/ul (4.0); Lymphocyte % 41.7 % (19-41); Mean Corpuscular Volume 90.6 fL (80-94); Mean Platelet Vol. 10.1 fl (6.2-12.0); Monocyte# 0.52 X10^3/uL; Monocyte% 12.1 % (0-10); NRBC Flagged by Analyzer 0 % (0-5); Neutrophil # 1.83 X10^3/uL (2.7-7.7); Neutrophil % 42.7 % (47-70); Platelet Count 135 K/mm3 (150-450); RBC Distribution Width CV 14.4 % (11.6-14.6); RBC Distribution Width SD 47.9 fl (35.1-43.9); Red Blood Count 4.59 M/mm3 (4.6-6.2); White Blood Count 4.3 K/mm3 (4.4-11.0)
[2019-05-19 11:25] LABS: Absolute Neutrophil Count 1.8 X10^3/uL (2.0-7.7); Basophil# 0.02 X10^3/uL; Basophil% 0.5 % (0-1); Eosinophil# 0.13 X10^3/uL; Eosinophils% 3.1 % (0-5); Hematocrit 42.4 % (40-54); Hemoglobin 13.8 g/dL (13.0-16.5); Lymphocyte % 43.3 % (19-41); Mean Corp Hgb Conc 32.5 g/dL (32-36); Mean Corpuscular Volume 92.2 fL (80-94); Mean Platelet Vol. 9.7 fl (6.2-12.0); Monocyte% 9.6 % (0-10); NRBC Flagged by Analyzer 0 % (0-5); Neutrophil # 1.79 X10^3/uL (2.7-7.7); Platelet Count 111 K/mm3 (150-450); RBC Distribution Width CV 14.2 % (11.6-14.6); RBC Distribution Width SD 47.6 fl (35.1-43.9); White Blood Count 4.2 K/mm3 (4.4-11.0)
== END 2019-05-19 18:00 | disposition home or self-care (01) ==
LOC: LAB 10:56
PROVIDERS: Family Provider Family Medicine; PCP Family Medicine; Referring Provider Psychiatry & Neurology Child & Adolescent Psychiatry; Visit Provider Psychiatry & Neurology Child & Adolescent Psychiatry
DX: F31.81 Bipolar II disorder (principal)
CPT/HCPCS: 36415; 85025

== ENCOUNTER 2019-06-16 09:23 | Outpatient (RCR) | payer MEDICAID, SELFPAY ==
[2018-09-18 07:24] VITALS: BMI 27.1
[2019-05-25 11:26] LABS: Absolute Neutrophil Count 2.9 X10^3/uL (2.0-7.7); Basophil# 0.02 X10^3/uL; Basophil% 0.4 % (0-1); Eosinophil# 0.11 X10^3/uL; Eosinophils% 2.2 % (0-5); Hematocrit 41.9 % (40-54); Hemoglobin 13.1 g/dL (13.0-16.5); Lymphocyte % 27.4 % (19-41); Mean Corp Hgb Conc 31.3 g/dL (32-36); Mean Corpuscular Hgb 28.9 pg (27.0-32.0); Mean Corpuscular Volume 92.3 fL (80-94); Mean Platelet Vol. 9.8 fl (6.2-12.0); Monocyte% 13.7 % (0-10); NRBC Flagged by Analyzer 0 % (0-5); Neutrophil # 2.86 X10^3/uL (2.7-7.7); Neutrophil % 55.9 % (47-70); Platelet Count 131 K/mm3 (150-450); RBC Distribution Width CV 14.1 % (11.6-14.6); RBC Distribution Width SD 48.1 fl (35.1-43.9); Red Blood Count 4.54 M/mm3 (4.6-6.2); White Blood Count 5.1 K/mm3 (4.4-11.0)
[2019-06-01 11:06] LABS: Absolute Lymphocyte Count 1.38 X10^3/uL (0.83-4.51); Absolute Neutrophil Count 2.1 X10^3/uL (2.0-7.7); Basophil# 0.02 X10^3/uL; Basophil% 0.5 % (0-1); Eosinophils% 2.5 % (0-5); Hematocrit 40.8 % (40-54); Lymphocyte # 1.38 X10^3/ul (4.0); Lymphocyte % 33.8 % (19-41); Mean Corp Hgb Conc 31.9 g/dL (32-36); Mean Corpuscular Hgb 29.1 pg (27.0-32.0); Mean Corpuscular Volume 91.5 fL (80-94); Mean Platelet Vol. 9.8 fl (6.2-12.0); Monocyte# 0.47 X10^3/uL; Monocyte% 11.5 % (0-10); NRBC Flagged by Analyzer 0 % (0-5); Neutrophil # 2.09 X10^3/uL (2.7-7.7); Neutrophil % 51.2 % (47-70); Platelet Count 125 K/mm3 (150-450); RBC Distribution Width CV 14.3 % (11.6-14.6); RBC Distribution Width SD 47.8 fl (35.1-43.9); Red Blood Count 4.46 M/mm3 (4.6-6.2); White Blood Count 4.1 K/mm3 (4.4-11.0)
[2019-06-01 11:33] LABS: Valproic Acid (Depakene) Level 78 ug/mL (50-100)
[2019-06-01 11:35] LABS: ALB/GLOB Ratio 0.7 RATIO (0.9-2.4); AST(SGOT) 14 U/L (15-37); Alanine Aminotransfer ALT/SGPT 13 U/L (16-61); Albumin, Serum 3.2 g/dL (3.2-5.0); Alkaline Phosphatase 44 U/L (45-117); Anion Gap 3 (5-15); BUN 14 mg/dL (7-18); BUN/Creat Ratio 17.8 RATIO (10-20); Calcium,Total 9.5 mg/dL (8.5-10.1); Chloride 109 mmol/L (98-107); Creatinine, Serum 0.79 mg/dL (0.70-1.30); EST Glomerular Filtration Rate 117 mL/min (>60); Est Glom Filt Rate - Afr Amer 142 mL/min (>60); Globulin 4.4 g/dL (2.2-4.2); Glucose 86 mg/dL (74-106); Potassium 4.5 mmol/L (3.5-5.1); Protein, Total 7.6 g/dL (6.4-8.2); Sodium Level 140 mmol/L (136-145)
[2019-06-09 10:58] LABS: Absolute Lymphocyte Count 1.52 X10^3/uL (0.83-4.51); Absolute Neutrophil Count 2.2 X10^3/uL (2.0-7.7); Basophil# 0.02 X10^3/uL; Basophil% 0.5 % (0-1); Eosinophil# 0.13 X10^3/uL; Eosinophils% 2.9 % (0-5); Hematocrit 41.7 % (40-54); Hemoglobin 13.4 g/dL (13.0-16.5); Lymphocyte # 1.52 X10^3/ul (4.0); Lymphocyte % 34.3 % (19-41); Mean Corp Hgb Conc 32.1 g/dL (32-36); Mean Corpuscular Hgb 29.5 pg (27.0-32.0); Mean Corpuscular Volume 91.9 fL (80-94); Mean Platelet Vol. 9.6 fl (6.2-12.0); Monocyte# 0.57 X10^3/uL; Monocyte% 12.9 % (0-10); NRBC Flagged by Analyzer 0 % (0-5); Neutrophil # 2.16 X10^3/uL (2.7-7.7); Neutrophil % 48.7 % (47-70); Platelet Count 153 K/mm3 (150-450); RBC Distribution Width CV 14.5 % (11.6-14.6); Red Blood Count 4.54 M/mm3 (4.6-6.2); White Blood Count 4.4 K/mm3 (4.4-11.0)
[2019-06-16 10:19] LABS: Absolute Lymphocyte Count 1.66 X10^3/uL (0.83-4.51); Absolute Neutrophil Count 2.1 X10^3/uL (2.0-7.7); Basophil# 0.02 X10^3/uL; Basophil% 0.4 % (0-1); Eosinophil# 0.11 X10^3/uL; Eosinophils% 2.5 % (0-5); Hematocrit 40.4 % (40-54); Hemoglobin 12.9 g/dL (13.0-16.5); Lymphocyte # 1.66 X10^3/ul (4.0); Lymphocyte % 37.1 % (19-41); Mean Corp Hgb Conc 31.9 g/dL (32-36); Mean Corpuscular Hgb 29.2 pg (27.0-32.0); Mean Corpuscular Volume 91.4 fL (80-94); Monocyte# 0.52 X10^3/uL; Monocyte% 11.6 % (0-10); NRBC Flagged by Analyzer 0 % (0-5); Neutrophil # 2.14 X10^3/uL (2.7-7.7); Platelet Count 125 K/mm3 (150-450); RBC Distribution Width CV 14.2 % (11.6-14.6); RBC Distribution Width SD 48.2 fl (35.1-43.9); Red Blood Count 4.42 M/mm3 (4.6-6.2); White Blood Count 4.5 K/mm3 (4.4-11.0)
[2019-06-16 10:45] LABS: ALB/GLOB Ratio 0.8 RATIO (0.9-2.4); AST(SGOT) 12 U/L (15-37); Alanine Aminotransfer ALT/SGPT 12 U/L (16-61); Albumin, Serum 3.3 g/dL (3.2-5.0); Alkaline Phosphatase 43 U/L (45-117); Anion Gap 4 (5-15); BUN 16 mg/dL (7-18); BUN/Creat Ratio 21.2 RATIO (10-20); Calcium,Total 9.2 mg/dL (8.5-10.1); Chloride 108 mmol/L (98-107); Creatinine, Serum 0.75 mg/dL (0.70-1.30); EST Glomerular Filtration Rate 123 mL/min (>60); Est Glom Filt Rate - Afr Amer 149 mL/min (>60); Globulin 4.2 g/dL (2.2-4.2); Glucose 81 mg/dL (74-106); Potassium 4.1 mmol/L (3.5-5.1); Protein, Total 7.5 g/dL (6.4-8.2); Sodium Level 140 mmol/L (136-145)
[2019-06-16 10:50] LABS: Valproic Acid (Depakene) Level 85 ug/mL (50-100)
== END 2019-06-18 18:00 | disposition home or self-care (01) ==
LOC: LAB 09:23
PROVIDERS: Family Provider Family Medicine; PCP Family Medicine; Referring Provider Psychiatry & Neurology Child & Adolescent Psychiatry; Visit Provider Psychiatry & Neurology Child & Adolescent Psychiatry
DX: Z79.899 Other long term (current) drug therapy (principal)
CPT/HCPCS: 36415; 80053; 80164; 85025

== ENCOUNTER 2019-07-15 08:26 | Outpatient (RCR) | payer MEDICAID, SELFPAY ==
[2018-09-18 07:24] VITALS: BMI 27.1
[2019-06-23 11:54] LABS: Absolute Lymphocyte Count 1.61 X10^3/uL (0.83-4.51); Absolute Neutrophil Count 2.3 X10^3/uL (2.0-7.7); Basophil# 0.02 X10^3/uL; Basophil% 0.4 % (0-1); Eosinophils% 2.1 % (0-5); Hematocrit 39.6 % (40-54); Hemoglobin 12.7 g/dL (13.0-16.5); Lymphocyte # 1.61 X10^3/ul (4.0); Lymphocyte % 34.4 % (19-41); Mean Corp Hgb Conc 32.1 g/dL (32-36); Mean Corpuscular Hgb 29.3 pg (27.0-32.0); Mean Corpuscular Volume 91.5 fL (80-94); Mean Platelet Vol. 10.1 fl (6.2-12.0); Monocyte# 0.62 X10^3/uL; Monocyte% 13.2 % (0-10); NRBC Flagged by Analyzer 0 % (0-5); Neutrophil # 2.32 X10^3/uL (2.7-7.7); Neutrophil % 49.7 % (47-70); Platelet Count 128 K/mm3 (150-450); RBC Distribution Width CV 14.2 % (11.6-14.6); RBC Distribution Width SD 47.8 fl (35.1-43.9); Red Blood Count 4.33 M/mm3 (4.6-6.2); White Blood Count 4.7 K/mm3 (4.4-11.0)
[2019-06-30 10:40] LABS: Absolute Lymphocyte Count 1.61 X10^3/uL (0.83-4.51); Absolute Neutrophil Count 1.9 X10^3/uL (2.0-7.7); Basophil# 0.02 X10^3/uL; Basophil% 0.5 % (0-1); Eosinophil# 0.17 X10^3/uL; Eosinophils% 4.1 % (0-5); Hematocrit 40.5 % (40-54); Hemoglobin 12.9 g/dL (13.0-16.5); Lymphocyte # 1.61 X10^3/ul (4.0); Lymphocyte % 39.3 % (19-41); Mean Corp Hgb Conc 31.9 g/dL (32-36); Mean Corpuscular Hgb 29.2 pg (27.0-32.0); Mean Corpuscular Volume 91.6 fL (80-94); Mean Platelet Vol. 9.8 fl (6.2-12.0); Monocyte# 0.41 X10^3/uL; NRBC Flagged by Analyzer 0 % (0-5); Neutrophil # 1.87 X10^3/uL (2.7-7.7); Neutrophil % 45.6 % (47-70); Platelet Count 121 K/mm3 (150-450); RBC Distribution Width CV 14.6 % (11.6-14.6); RBC Distribution Width SD 48.8 fl (35.1-43.9); Red Blood Count 4.42 M/mm3 (4.6-6.2); White Blood Count 4.1 K/mm3 (4.4-11.0)
[2019-07-07 09:37] LABS: Absolute Lymphocyte Count 1.89 X10^3/uL (0.83-4.51); Absolute Neutrophil Count 2.9 X10^3/uL (2.0-7.7); Basophil# 0.02 X10^3/uL; Basophil% 0.4 % (0-1); Eosinophil# 0.15 X10^3/uL; Eosinophils% 2.7 % (0-5); Hemoglobin 13.1 g/dL (13.0-16.5); Lymphocyte # 1.89 X10^3/ul (4.0); Lymphocyte % 33.6 % (19-41); Mean Corpuscular Hgb 29.4 pg (27.0-32.0); Mean Corpuscular Volume 91.9 fL (80-94); Mean Platelet Vol. 9.7 fl (6.2-12.0); Monocyte# 0.66 X10^3/uL; Monocyte% 11.7 % (0-10); NRBC Flagged by Analyzer 0 % (0-5); Neutrophil # 2.88 X10^3/uL (2.7-7.7); Neutrophil % 51.2 % (47-70); Platelet Count 146 K/mm3 (150-450); RBC Distribution Width CV 14.2 % (11.6-14.6); RBC Distribution Width SD 47.9 fl (35.1-43.9); Red Blood Count 4.46 M/mm3 (4.6-6.2); White Blood Count 5.6 K/mm3 (4.4-11.0)
[2019-07-15 09:28] LABS: Absolute Lymphocyte Count 1.98 X10^3/uL (0.83-4.51); Absolute Neutrophil Count 2.5 X10^3/uL (2.0-7.7); Basophil# 0.02 X10^3/uL; Basophil% 0.4 % (0-1); Eosinophil# 0.14 X10^3/uL; Eosinophils% 2.7 % (0-5); Hematocrit 41.4 % (40-54); Hemoglobin 13.5 g/dL (13.0-16.5); Lymphocyte # 1.98 X10^3/ul (4.0); Lymphocyte % 38.4 % (19-41); Mean Corp Hgb Conc 32.6 g/dL (32-36); Mean Corpuscular Hgb 29.7 pg (27.0-32.0); Mean Platelet Vol. 9.8 fl (6.2-12.0); Monocyte# 0.54 X10^3/uL; Monocyte% 10.5 % (0-10); NRBC Flagged by Analyzer 0 % (0-5); Neutrophil # 2.46 X10^3/uL (2.7-7.7); Neutrophil % 47.6 % (47-70); Platelet Count 131 K/mm3 (150-450); RBC Distribution Width CV 13.8 % (11.6-14.6); RBC Distribution Width SD 46.4 fl (35.1-43.9); Red Blood Count 4.55 M/mm3 (4.6-6.2); White Blood Count 5.2 K/mm3 (4.4-11.0)
[2019-07-15 09:50] LABS: ALB/GLOB Ratio 0.7 RATIO (0.9-2.4); AST(SGOT) 12 U/L (15-37); Alanine Aminotransfer ALT/SGPT 11 U/L (16-61); Albumin, Serum 3.3 g/dL (3.2-5.0); Alkaline Phosphatase 47 U/L (45-117); Anion Gap 5 (5-15); BUN 17 mg/dL (7-18); BUN/Creat Ratio 18.7 RATIO (10-20); Calcium,Total 9.2 mg/dL (8.5-10.1); Chloride 107 mmol/L (98-107); Creatinine, Serum 0.91 mg/dL (0.70-1.30); EST Glomerular Filtration Rate 100 mL/min (>60); Est Glom Filt Rate - Afr Amer 120 mL/min (>60); Globulin 4.6 g/dL (2.2-4.2); Glucose 84 mg/dL (74-106); Potassium 3.9 mmol/L (3.5-5.1); Protein, Total 7.9 g/dL (6.4-8.2); Sodium Level 141 mmol/L (136-145)
[2019-07-15 09:53] LABS: Valproic Acid (Depakene) Level 89 ug/mL (50-100)
== END 2019-07-15 18:00 | disposition home or self-care (01) ==
LOC: LAB 08:26
PROVIDERS: Family Provider Family Medicine; PCP Family Medicine; Referring Provider Psychiatry & Neurology Child & Adolescent Psychiatry; Visit Provider Psychiatry & Neurology Child & Adolescent Psychiatry
DX: Z79.899 Other long term (current) drug therapy (principal)
CPT/HCPCS: 36415; 80053; 80164; 85025

== ENCOUNTER 2019-08-17 09:46 | Outpatient (RCR) | payer MEDICAID, SELFPAY ==
[2018-09-18 07:24] VITALS: BMI 27.1
[2019-07-21 09:17] LABS: Absolute Lymphocyte Count 1.75 X10^3/uL (0.83-4.51); Basophil# 0.02 X10^3/uL; Basophil% 0.4 % (0-1); Eosinophil# 0.13 X10^3/uL; Eosinophils% 2.3 % (0-5); Hematocrit 40.7 % (40-54); Lymphocyte # 1.75 X10^3/ul (4.0); Lymphocyte % 31.4 % (19-41); Mean Corp Hgb Conc 31.9 g/dL (32-36); Mean Corpuscular Hgb 29.5 pg (27.0-32.0); Mean Corpuscular Volume 92.3 fL (80-94); Mean Platelet Vol. 10.2 fl (6.2-12.0); Monocyte# 0.68 X10^3/uL; Monocyte% 12.2 % (0-10); NRBC Flagged by Analyzer 0 % (0-5); Neutrophil # 2.97 X10^3/uL (2.7-7.7); Neutrophil % 53.3 % (47-70); Platelet Count 123 K/mm3 (150-450); RBC Distribution Width CV 14.2 % (11.6-14.6); RBC Distribution Width SD 48.6 fl (35.1-43.9); Red Blood Count 4.41 M/mm3 (4.6-6.2); White Blood Count 5.6 K/mm3 (4.4-11.0)
[2019-07-27 10:16] LABS: Absolute Lymphocyte Count 1.85 X10^3/uL (0.83-4.51); Absolute Neutrophil Count 1.9 X10^3/uL (2.0-7.7); Basophil# 0.03 X10^3/uL; Basophil% 0.7 % (0-1); Eosinophil# 0.13 X10^3/uL; Eosinophils% 2.9 % (0-5); Hematocrit 41.4 % (40-54); Hemoglobin 13.3 g/dL (13.0-16.5); Lymphocyte # 1.85 X10^3/ul (4.0); Mean Corp Hgb Conc 32.1 g/dL (32-36); Mean Corpuscular Volume 93.2 fL (80-94); Mean Platelet Vol. 9.7 fl (6.2-12.0); Monocyte# 0.55 X10^3/uL; Monocyte% 12.2 % (0-10); NRBC Flagged by Analyzer 0 % (0-5); Neutrophil # 1.94 X10^3/uL (2.7-7.7); Platelet Count 130 K/mm3 (150-450); RBC Distribution Width CV 14.1 % (11.6-14.6); RBC Distribution Width SD 48.5 fl (35.1-43.9); Red Blood Count 4.44 M/mm3 (4.6-6.2); White Blood Count 4.5 K/mm3 (4.4-11.0)
[2019-08-03 11:02] LABS: Absolute Lymphocyte Count 1.68 X10^3/uL (0.83-4.51); Absolute Neutrophil Count 1.8 X10^3/uL (2.0-7.7); Basophil# 0.02 X10^3/uL; Basophil% 0.5 % (0-1); Eosinophil# 0.11 X10^3/uL; Eosinophils% 2.7 % (0-5); Hemoglobin 12.8 g/dL (13.0-16.5); Lymphocyte # 1.68 X10^3/ul (4.0); Lymphocyte % 41.6 % (19-41); Mean Corp Hgb Conc 31.2 g/dL (32-36); Mean Corpuscular Hgb 28.6 pg (27.0-32.0); Mean Corpuscular Volume 91.5 fL (80-94); Monocyte# 0.42 X10^3/uL; Monocyte% 10.4 % (0-10); NRBC Flagged by Analyzer 0 % (0-5); Neutrophil % 44.6 % (47-70); Platelet Count 120 K/mm3 (150-450); RBC Distribution Width CV 14.2 % (11.6-14.6); RBC Distribution Width SD 47.9 fl (35.1-43.9); Red Blood Count 4.48 M/mm3 (4.6-6.2)
[2019-08-10 10:09] LABS: Absolute Neutrophil Count 1.2 X10^3/uL (2.0-7.7); Basophil# 0.02 X10^3/uL; Basophil% 0.6 % (0-1); Eosinophil# 0.15 X10^3/uL; Eosinophils% 4.4 % (0-5); Hemoglobin 12.8 g/dL (13.0-16.5); Lymphocyte % 50.3 % (19-41); Mean Corpuscular Hgb 29.8 pg (27.0-32.0); Mean Platelet Vol. 9.8 fl (6.2-12.0); Monocyte# 0.32 X10^3/uL; Monocyte% 9.5 % (0-10); NRBC Flagged by Analyzer 0 % (0-5); Neutrophil # 1.18 X10^3/uL (2.7-7.7); Neutrophil % 34.9 % (47-70); Platelet Count 125 K/mm3 (150-450); RBC Distribution Width CV 14.5 % (11.6-14.6); RBC Distribution Width SD 48.8 fl (35.1-43.9); White Blood Count 3.4 K/mm3 (4.4-11.0)
[2019-08-17 10:29] LABS: Absolute Lymphocyte Count 1.75 X10^3/uL (0.83-4.51); Absolute Neutrophil Count 2.4 X10^3/uL (2.0-7.7); Basophil# 0.02 X10^3/uL; Basophil% 0.4 % (0-1); Eosinophil# 0.12 X10^3/uL; Eosinophils% 2.4 % (0-5); Hemoglobin 12.9 g/dL (13.0-16.5); Lymphocyte # 1.75 X10^3/ul (4.0); Lymphocyte % 35.6 % (19-41); Mean Corp Hgb Conc 31.5 g/dL (32-36); Mean Corpuscular Hgb 29.3 pg (27.0-32.0); Mean Corpuscular Volume 93.2 fL (80-94); Mean Platelet Vol. 9.8 fl (6.2-12.0); Monocyte# 0.59 X10^3/uL; NRBC Flagged by Analyzer 0 % (0-5); Neutrophil # 2.41 X10^3/uL (2.7-7.7); Platelet Count 142 K/mm3 (150-450); RBC Distribution Width CV 14.1 % (11.6-14.6); RBC Distribution Width SD 48.6 fl (35.1-43.9); White Blood Count 4.9 K/mm3 (4.4-11.0)
[2019-09-04 10:49] LABS: Absolute Lymphocyte Count 1.87 X10^3/uL (0.83-4.51); Absolute Neutrophil Count 2.7 X10^3/uL (2.0-7.7); Basophil# 0.01 X10^3/uL; Basophil% 0.2 % (0-1); Eosinophil# 0.11 X10^3/uL; Eosinophils% 2.1 % (0-5); Hematocrit 42.1 % (40-54); Hemoglobin 13.6 g/dL (13.0-16.5); Lymphocyte # 1.87 X10^3/ul (4.0); Lymphocyte % 35.2 % (19-41); Mean Corp Hgb Conc 32.3 g/dL (32-36); Mean Corpuscular Hgb 29.5 pg (27.0-32.0); Mean Corpuscular Volume 91.3 fL (80-94); Monocyte# 0.57 X10^3/uL; Monocyte% 10.7 % (0-10); NRBC Flagged by Analyzer 0 % (0-5); Neutrophil # 2.74 X10^3/uL (2.7-7.7); Neutrophil % 51.4 % (47-70); Platelet Count 140 K/mm3 (150-450); RBC Distribution Width CV 14.5 % (11.6-14.6); RBC Distribution Width SD 48.3 fl (35.1-43.9); Red Blood Count 4.61 M/mm3 (4.6-6.2); White Blood Count 5.3 K/mm3 (4.4-11.0)
== END 2019-08-17 18:00 | disposition home or self-care (01) ==
LOC: LAB 09:46
PROVIDERS: Family Provider Family Medicine; PCP Family Medicine; Referring Provider Psychiatry & Neurology Child & Adolescent Psychiatry; Visit Provider Psychiatry & Neurology Child & Adolescent Psychiatry
DX: Z79.899 Other long term (current) drug therapy (principal)
CPT/HCPCS: 36415; 85025

== ENCOUNTER 2019-09-14 09:51 | Outpatient (RCR) | payer MEDICAID, SELFPAY ==
[2018-09-18 07:24] VITALS: BMI 27.1
[2019-08-27 09:56] LABS: Absolute Lymphocyte Count 1.87 X10^3/uL (0.83-4.51); Absolute Neutrophil Count 1.5 X10^3/uL (2.0-7.7); Basophil# 0.02 X10^3/uL; Basophil% 0.5 % (0-1); Eosinophils% 2.5 % (0-5); Hemoglobin 12.9 g/dL (13.0-16.5); Lymphocyte # 1.87 X10^3/ul (4.0); Lymphocyte % 46.9 % (19-41); Mean Corp Hgb Conc 31.5 g/dL (32-36); Mean Corpuscular Hgb 29.3 pg (27.0-32.0); Mean Corpuscular Volume 93.2 fL (80-94); Mean Platelet Vol. 9.6 fl (6.2-12.0); Monocyte# 0.48 X10^3/uL; NRBC Flagged by Analyzer 0 % (0-5); Neutrophil % 37.6 % (47-70); Platelet Count 132 K/mm3 (150-450); RBC Distribution Width CV 14.3 % (11.6-14.6); RBC Distribution Width SD 48.9 fl (35.1-43.9)
[2019-09-07 10:25] LABS: Absolute Lymphocyte Count 1.94 X10^3/uL (0.83-4.51); Absolute Neutrophil Count 1.5 X10^3/uL (2.0-7.7); Basophil# 0.02 X10^3/uL; Basophil% 0.5 % (0-1); Eosinophil# 0.12 X10^3/uL; Hematocrit 41.5 % (40-54); Hemoglobin 13.6 g/dL (13.0-16.5); Lymphocyte # 1.94 X10^3/ul (4.0); Lymphocyte % 47.8 % (19-41); Mean Corp Hgb Conc 32.8 g/dL (32-36); Mean Corpuscular Hgb 29.6 pg (27.0-32.0); Mean Corpuscular Volume 90.4 fL (80-94); Mean Platelet Vol. 9.6 fl (6.2-12.0); Monocyte# 0.47 X10^3/uL; Monocyte% 11.6 % (0-10); NRBC Flagged by Analyzer 0 % (0-5); Neutrophil # 1.49 X10^3/uL (2.7-7.7); Neutrophil % 36.6 % (47-70); Platelet Count 129 K/mm3 (150-450); RBC Distribution Width CV 14.4 % (11.6-14.6); Red Blood Count 4.59 M/mm3 (4.6-6.2); White Blood Count 4.1 K/mm3 (4.4-11.0)
[2019-09-14 10:07] LABS: Absolute Lymphocyte Count 2.05 X10^3/uL (0.83-4.51); Absolute Neutrophil Count 1.8 X10^3/uL (2.0-7.7); Basophil# 0.02 X10^3/uL; Basophil% 0.4 % (0-1); Eosinophils% 2.2 % (0-5); Hematocrit 43.1 % (40-54); Lymphocyte # 2.05 X10^3/ul (4.0); Lymphocyte % 45.9 % (19-41); Mean Corp Hgb Conc 32.5 g/dL (32-36); Mean Corpuscular Hgb 29.8 pg (27.0-32.0); Mean Corpuscular Volume 91.7 fL (80-94); Mean Platelet Vol. 10.1 fl (6.2-12.0); Monocyte# 0.46 X10^3/uL; Monocyte% 10.3 % (0-10); NRBC Flagged by Analyzer 0 % (0-5); Neutrophil # 1.83 X10^3/uL (2.7-7.7); Platelet Count 132 K/mm3 (150-450); RBC Distribution Width CV 14.4 % (11.6-14.6); RBC Distribution Width SD 49.1 fl (35.1-43.9); White Blood Count 4.5 K/mm3 (4.4-11.0)
[2019-09-14 10:35] LABS: ALB/GLOB Ratio 0.8 RATIO (0.9-2.4); AST(SGOT) 8 U/L (15-37); Alanine Aminotransfer ALT/SGPT 12 U/L (16-61); Albumin, Serum 3.7 g/dL (3.2-5.0); Alkaline Phosphatase 45 U/L (45-117); Anion Gap 2 (5-15); BUN 18 mg/dL (7-18); BUN/Creat Ratio 19.7 RATIO (10-20); Calcium,Total 9.6 mg/dL (8.5-10.1); Chloride 108 mmol/L (98-107); Creatinine, Serum 0.92 mg/dL (0.70-1.30); EST Glomerular Filtration Rate 98 mL/min (>60); Est Glom Filt Rate - Afr Amer 119 mL/min (>60); Globulin 4.4 g/dL (2.2-4.2); Glucose 86 mg/dL (74-106); Potassium 4.4 mmol/L (3.5-5.1); Protein, Total 8.1 g/dL (6.4-8.2); Sodium Level 142 mmol/L (136-145)
[2019-09-14 10:55] LABS: Valproic Acid (Depakene) Level 97 ug/mL (50-100)
== END 2019-09-14 18:00 | disposition home or self-care (01) ==
LOC: LAB 09:51
PROVIDERS: Family Provider Family Medicine; PCP Family Medicine; Referring Provider Psychiatry & Neurology Child & Adolescent Psychiatry; Visit Provider Psychiatry & Neurology Child & Adolescent Psychiatry
DX: Z79.899 Other long term (current) drug therapy (principal)
CPT/HCPCS: 36415; 80053; 80164; 85025

== ENCOUNTER 2019-10-19 10:17 | Outpatient (RCR) | payer MEDICAID, SELFPAY ==
[2018-09-18 07:24] VITALS: BMI 27.1
[2019-09-22 10:12] LABS: Absolute Lymphocyte Count 1.96 X10^3/uL (0.83-4.51); Absolute Neutrophil Count 2.4 X10^3/uL (2.0-7.7); Basophil# 0.02 X10^3/uL; Basophil% 0.4 % (0-1); Eosinophil# 0.13 X10^3/uL; Eosinophils% 2.5 % (0-5); Hematocrit 40.8 % (40-54); Hemoglobin 13.4 g/dL (13.0-16.5); Lymphocyte # 1.96 X10^3/ul (4.0); Mean Corp Hgb Conc 32.8 g/dL (32-36); Mean Corpuscular Hgb 30.1 pg (27.0-32.0); Mean Corpuscular Volume 91.7 fL (80-94); Monocyte# 0.73 X10^3/uL; Monocyte% 13.8 % (0-10); NRBC Flagged by Analyzer 0 % (0-5); Neutrophil # 2.44 X10^3/uL (2.7-7.7); Neutrophil % 45.9 % (47-70); Platelet Count 119 K/mm3 (150-450); RBC Distribution Width CV 14.6 % (11.6-14.6); RBC Distribution Width SD 48.5 fl (35.1-43.9); Red Blood Count 4.45 M/mm3 (4.6-6.2); White Blood Count 5.3 K/mm3 (4.4-11.0)
[2019-09-29 10:47] LABS: Absolute Neutrophil Count 2.3 X10^3/uL (2.0-7.7); Basophil# 0.02 X10^3/uL; Basophil% 0.4 % (0-1); Eosinophil# 0.14 X10^3/uL; Eosinophils% 2.9 % (0-5); Hematocrit 41.5 % (40-54); Hemoglobin 13.7 g/dL (13.0-16.5); Lymphocyte % 36.7 % (19-41); Mean Corpuscular Volume 90.8 fL (80-94); Mean Platelet Vol. 9.9 fl (6.2-12.0); Monocyte# 0.59 X10^3/uL; NRBC Flagged by Analyzer 0 % (0-5); Neutrophil # 2.32 X10^3/uL (2.7-7.7); Neutrophil % 47.4 % (47-70); Platelet Count 133 K/mm3 (150-450); RBC Distribution Width CV 14.2 % (11.6-14.6); RBC Distribution Width SD 47.6 fl (35.1-43.9); Red Blood Count 4.57 M/mm3 (4.6-6.2); White Blood Count 4.9 K/mm3 (4.4-11.0)
[2019-10-06 09:40] LABS: Absolute Lymphocyte Count 1.83 X10^3/uL (0.83-4.51); Absolute Neutrophil Count 2.9 X10^3/uL (2.0-7.7); Basophil# 0.03 X10^3/uL; Basophil% 0.5 % (0-1); Eosinophils% 1.8 % (0-5); Hematocrit 40.4 % (40-54); Hemoglobin 13.2 g/dL (13.0-16.5); Lymphocyte # 1.83 X10^3/ul (4.0); Lymphocyte % 32.7 % (19-41); Mean Corp Hgb Conc 32.7 g/dL (32-36); Mean Corpuscular Hgb 29.7 pg (27.0-32.0); Mean Corpuscular Volume 90.8 fL (80-94); Mean Platelet Vol. 9.3 fl (6.2-12.0); Monocyte# 0.76 X10^3/uL; Monocyte% 13.6 % (0-10); NRBC Flagged by Analyzer 0 % (0-5); Neutrophil # 2.85 X10^3/uL (2.7-7.7); Neutrophil % 50.9 % (47-70); Platelet Count 160 K/mm3 (150-450); RBC Distribution Width CV 14.6 % (11.6-14.6); RBC Distribution Width SD 48.4 fl (35.1-43.9); Red Blood Count 4.45 M/mm3 (4.6-6.2); White Blood Count 5.6 K/mm3 (4.4-11.0)
[2019-10-12 10:03] LABS: Absolute Lymphocyte Count 1.92 X10^3/uL (0.83-4.51); Absolute Neutrophil Count 2.3 X10^3/uL (2.0-7.7); Basophil# 0.03 X10^3/uL; Basophil% 0.6 % (0-1); Eosinophil# 0.14 X10^3/uL; Eosinophils% 2.8 % (0-5); Hematocrit 41.2 % (40-54); Hemoglobin 13.5 g/dL (13.0-16.5); Lymphocyte # 1.92 X10^3/ul (4.0); Lymphocyte % 38.6 % (19-41); Mean Corp Hgb Conc 32.8 g/dL (32-36); Mean Corpuscular Hgb 30.1 pg (27.0-32.0); Mean Platelet Vol. 9.5 fl (6.2-12.0); Monocyte# 0.58 X10^3/uL; Monocyte% 11.6 % (0-10); NRBC Flagged by Analyzer 0 % (0-5); Neutrophil # 2.28 X10^3/uL (2.7-7.7); Neutrophil % 45.8 % (47-70); Platelet Count 155 K/mm3 (150-450); RBC Distribution Width CV 14.6 % (11.6-14.6); RBC Distribution Width SD 48.9 fl (35.1-43.9); Red Blood Count 4.48 M/mm3 (4.6-6.2)
[2019-10-19 10:35] LABS: Absolute Lymphocyte Count 2.04 X10^3/uL (0.83-4.51); Absolute Neutrophil Count 2.2 X10^3/uL (2.0-7.7); Basophil# 0.02 X10^3/uL; Basophil% 0.4 % (0-1); Eosinophil# 0.14 X10^3/uL; Eosinophils% 2.8 % (0-5); Hematocrit 41.9 % (40-54); Hemoglobin 13.6 g/dL (13.0-16.5); Lymphocyte # 2.04 X10^3/ul (4.0); Lymphocyte % 40.6 % (19-41); Mean Corp Hgb Conc 32.5 g/dL (32-36); Mean Corpuscular Hgb 29.9 pg (27.0-32.0); Mean Corpuscular Volume 92.1 fL (80-94); Mean Platelet Vol. 9.5 fl (6.2-12.0); Monocyte# 0.56 X10^3/uL; Monocyte% 11.2 % (0-10); NRBC Flagged by Analyzer 0 % (0-5); Neutrophil # 2.24 X10^3/uL (2.7-7.7); Neutrophil % 44.6 % (47-70); Platelet Count 141 K/mm3 (150-450); RBC Distribution Width CV 14.3 % (11.6-14.6); RBC Distribution Width SD 48.3 fl (35.1-43.9); Red Blood Count 4.55 M/mm3 (4.6-6.2)
== END 2019-10-19 18:00 | disposition home or self-care (01) ==
LOC: LAB 10:17
PROVIDERS: Family Provider Family Medicine; PCP Family Medicine; Referring Provider Psychiatry & Neurology Child & Adolescent Psychiatry; Visit Provider Psychiatry & Neurology Child & Adolescent Psychiatry
DX: Z79.899 Other long term (current) drug therapy (principal)
CPT/HCPCS: 36415; 85025

== ENCOUNTER 2019-11-16 09:14 | Outpatient (RCR) | payer MEDICAID, SELFPAY ==
[2018-09-18 07:24] VITALS: BMI 27.1
[2019-10-27 10:37] LABS: Absolute Lymphocyte Count 2.01 X10^3/uL (0.83-4.51); Absolute Neutrophil Count 2.8 X10^3/uL (2.0-7.7); Basophil# 0.01 X10^3/uL; Basophil% 0.2 % (0-1); Eosinophil# 0.09 X10^3/uL; Eosinophils% 1.7 % (0-5); Hematocrit 40.4 % (40-54); Lymphocyte # 2.01 X10^3/ul (4.0); Lymphocyte % 36.9 % (19-41); Mean Corp Hgb Conc 32.2 g/dL (32-36); Mean Corpuscular Hgb 29.3 pg (27.0-32.0); Mean Corpuscular Volume 91.2 fL (80-94); Mean Platelet Vol. 9.4 fl (6.2-12.0); Monocyte# 0.51 X10^3/uL; Monocyte% 9.4 % (0-10); NRBC Flagged by Analyzer 0 % (0-5); Neutrophil # 2.81 X10^3/uL (2.7-7.7); Neutrophil % 51.6 % (47-70); Platelet Count 141 K/mm3 (150-450); RBC Distribution Width CV 14.1 % (11.6-14.6); RBC Distribution Width SD 47.8 fl (35.1-43.9); Red Blood Count 4.43 M/mm3 (4.6-6.2); White Blood Count 5.4 K/mm3 (4.4-11.0)
[2019-11-02 10:27] LABS: Absolute Lymphocyte Count 2.01 X10^3/uL (0.83-4.51); Absolute Neutrophil Count 2.3 X10^3/uL (2.0-7.7); Basophil# 0.02 X10^3/uL; Basophil% 0.4 % (0-1); Eosinophil# 0.15 X10^3/uL; Eosinophils% 2.9 % (0-5); Hematocrit 39.2 % (40-54); Hemoglobin 12.7 g/dL (13.0-16.5); Lymphocyte # 2.01 X10^3/ul (4.0); Lymphocyte % 39.2 % (19-41); Mean Corp Hgb Conc 32.4 g/dL (32-36); Mean Corpuscular Hgb 29.9 pg (27.0-32.0); Mean Corpuscular Volume 92.2 fL (80-94); Monocyte# 0.59 X10^3/uL; Monocyte% 11.5 % (0-10); NRBC Flagged by Analyzer 0 % (0-5); Neutrophil # 2.34 X10^3/uL (2.7-7.7); Neutrophil % 45.6 % (47-70); Platelet Count 123 K/mm3 (150-450); RBC Distribution Width CV 14.1 % (11.6-14.6); RBC Distribution Width SD 47.9 fl (35.1-43.9); Red Blood Count 4.25 M/mm3 (4.6-6.2); White Blood Count 5.1 K/mm3 (4.4-11.0)
[2019-11-09 10:01] LABS: Absolute Neutrophil Count 1.7 X10^3/uL (2.0-7.7); Basophil# 0.02 X10^3/uL; Basophil% 0.5 % (0-1); Eosinophil# 0.11 X10^3/uL; Eosinophils% 2.6 % (0-5); Hematocrit 41.3 % (40-54); Hemoglobin 13.2 g/dL (13.0-16.5); Lymphocyte % 42.9 % (19-41); Mean Corpuscular Hgb 29.7 pg (27.0-32.0); Mean Corpuscular Volume 92.8 fL (80-94); Mean Platelet Vol. 9.7 fl (6.2-12.0); Monocyte# 0.53 X10^3/uL; Monocyte% 12.6 % (0-10); NRBC Flagged by Analyzer 0 % (0-5); Neutrophil # 1.72 X10^3/uL (2.7-7.7); Neutrophil % 40.9 % (47-70); Platelet Count 138 K/mm3 (150-450); RBC Distribution Width CV 14.2 % (11.6-14.6); RBC Distribution Width SD 48.4 fl (35.1-43.9); Red Blood Count 4.45 M/mm3 (4.6-6.2); White Blood Count 4.2 K/mm3 (4.4-11.0)
[2019-11-16 09:32] LABS: Absolute Lymphocyte Count 2.03 X10^3/uL (0.83-4.51); Absolute Neutrophil Count 2.4 X10^3/uL (2.0-7.7); Basophil# 0.03 X10^3/uL; Basophil% 0.6 % (0-1); Eosinophil# 0.13 X10^3/uL; Eosinophils% 2.6 % (0-5); Hematocrit 41.4 % (40-54); Hemoglobin 13.3 g/dL (13.0-16.5); Lymphocyte # 2.03 X10^3/ul (4.0); Mean Corp Hgb Conc 32.1 g/dL (32-36); Mean Corpuscular Hgb 29.4 pg (27.0-32.0); Mean Corpuscular Volume 91.4 fL (80-94); Mean Platelet Vol. 9.4 fl (6.2-12.0); Monocyte# 0.47 X10^3/uL; Monocyte% 9.3 % (0-10); NRBC Flagged by Analyzer 0 % (0-5); Neutrophil # 2.39 X10^3/uL (2.7-7.7); Neutrophil % 47.1 % (47-70); Platelet Count 125 K/mm3 (150-450); RBC Distribution Width CV 13.9 % (11.6-14.6); RBC Distribution Width SD 46.8 fl (35.1-43.9); Red Blood Count 4.53 M/mm3 (4.6-6.2); White Blood Count 5.1 K/mm3 (4.4-11.0)
[2019-11-16 10:10] LABS: Valproic Acid (Depakene) Level 111 ug/mL (50-100)
[2019-11-16 10:23] LABS: ALB/GLOB Ratio 0.8 RATIO (0.9-2.4); AST(SGOT) 12 U/L (15-37); Alanine Aminotransfer ALT/SGPT 12 U/L (16-61); Albumin, Serum 3.4 g/dL (3.2-5.0); Alkaline Phosphatase 44 U/L (45-117); Anion Gap 2 (5-15); BUN 14 mg/dL (7-18); BUN/Creat Ratio 16.3 RATIO (10-20); Calcium,Total 9.4 mg/dL (8.5-10.1); Chloride 106 mmol/L (98-107); Creatinine, Serum 0.86 mg/dL (0.70-1.30); EST Glomerular Filtration Rate 106 mL/min (>60); Est Glom Filt Rate - Afr Amer 128 mL/min (>60); Globulin 4.5 g/dL (2.2-4.2); Glucose 92 mg/dL (74-106); Potassium 4.5 mmol/L (3.5-5.1); Protein, Total 7.9 g/dL (6.4-8.2); Sodium Level 138 mmol/L (136-145)
== END 2019-11-16 18:00 | disposition home or self-care (01) ==
LOC: LAB 09:14
PROVIDERS: Family Provider Family Medicine; PCP Family Medicine; Referring Provider Psychiatry & Neurology Child & Adolescent Psychiatry; Visit Provider Psychiatry & Neurology Child & Adolescent Psychiatry
DX: Z79.899 Other long term (current) drug therapy (principal)
CPT/HCPCS: 36415; 80053; 80164; 85025

== ENCOUNTER 2019-12-14 09:25 | Outpatient (RCR) | payer MEDICAID, SELFPAY ==
[2018-09-18 07:24] VITALS: BMI 27.1
[2019-11-27 11:03] LABS: Absolute Lymphocyte Count 1.88 X10^3/uL (0.83-4.51); Absolute Neutrophil Count 1.9 X10^3/uL (2.0-7.7); Basophil# 0.02 X10^3/uL; Basophil% 0.5 % (0-1); Eosinophil# 0.12 X10^3/uL; Eosinophils% 2.7 % (0-5); Hematocrit 41.7 % (40-54); Hemoglobin 13.2 g/dL (13.0-16.5); Lymphocyte # 1.88 X10^3/ul (4.0); Lymphocyte % 42.4 % (19-41); Mean Corp Hgb Conc 31.7 g/dL (32-36); Mean Corpuscular Hgb 29.1 pg (27.0-32.0); Mean Corpuscular Volume 91.9 fL (80-94); Mean Platelet Vol. 9.8 fl (6.2-12.0); Monocyte# 0.48 X10^3/uL; Monocyte% 10.8 % (0-10); NRBC Flagged by Analyzer 0 % (0-5); Neutrophil # 1.91 X10^3/uL (2.7-7.7); Neutrophil % 43.1 % (47-70); Platelet Count 131 K/mm3 (150-450); RBC Distribution Width CV 13.9 % (11.6-14.6); RBC Distribution Width SD 47.4 fl (35.1-43.9); Red Blood Count 4.54 M/mm3 (4.6-6.2); White Blood Count 4.4 K/mm3 (4.4-11.0)
[2019-12-02 10:13] LABS: Absolute Lymphocyte Count 1.81 X10^3/uL (0.83-4.51); Basophil# 0.02 X10^3/uL; Basophil% 0.4 % (0-1); Eosinophils% 2.2 % (0-5); Hemoglobin 13.3 g/dL (13.0-16.5); Lymphocyte # 1.81 X10^3/ul (4.0); Lymphocyte % 40.7 % (19-41); Mean Corp Hgb Conc 31.7 g/dL (32-36); Mean Corpuscular Hgb 29.3 pg (27.0-32.0); Mean Corpuscular Volume 92.5 fL (80-94); Mean Platelet Vol. 9.7 fl (6.2-12.0); Monocyte# 0.54 X10^3/uL; Monocyte% 12.1 % (0-10); NRBC Flagged by Analyzer 0 % (0-5); Neutrophil # 1.96 X10^3/uL (2.7-7.7); Neutrophil % 44.2 % (47-70); Platelet Count 128 K/mm3 (150-450); RBC Distribution Width CV 14.2 % (11.6-14.6); RBC Distribution Width SD 48.2 fl (35.1-43.9); Red Blood Count 4.54 M/mm3 (4.6-6.2); White Blood Count 4.5 K/mm3 (4.4-11.0)
[2019-12-07 10:18] LABS: Absolute Lymphocyte Count 1.96 X10^3/uL (0.83-4.51); Absolute Neutrophil Count 2.1 X10^3/uL (2.0-7.7); Basophil# 0.02 X10^3/uL; Basophil% 0.4 % (0-1); Eosinophil# 0.14 X10^3/uL; Eosinophils% 2.9 % (0-5); Hematocrit 42.9 % (40-54); Hemoglobin 13.3 g/dL (13.0-16.5); Lymphocyte # 1.96 X10^3/ul (4.0); Lymphocyte % 40.8 % (19-41); Mean Corpuscular Volume 93.5 fL (80-94); Mean Platelet Vol. 9.9 fl (6.2-12.0); Monocyte# 0.59 X10^3/uL; Monocyte% 12.3 % (0-10); NRBC Flagged by Analyzer 0 % (0-5); Neutrophil # 2.07 X10^3/uL (2.7-7.7); Neutrophil % 43.2 % (47-70); Platelet Count 142 K/mm3 (150-450); RBC Distribution Width CV 14.1 % (11.6-14.6); RBC Distribution Width SD 48.5 fl (35.1-43.9); Red Blood Count 4.59 M/mm3 (4.6-6.2); White Blood Count 4.8 K/mm3 (4.4-11.0)
[2019-12-14 10:15] LABS: Absolute Lymphocyte Count 1.85 X10^3/uL (0.83-4.51); Absolute Neutrophil Count 2.5 X10^3/uL (2.0-7.7); Basophil# 0.03 X10^3/uL; Basophil% 0.6 % (0-1); Eosinophil# 0.11 X10^3/uL; Eosinophils% 2.2 % (0-5); Hematocrit 41.8 % (40-54); Hemoglobin 13.4 g/dL (13.0-16.5); Lymphocyte # 1.85 X10^3/ul (4.0); Lymphocyte % 36.9 % (19-41); Mean Corp Hgb Conc 32.1 g/dL (32-36); Mean Corpuscular Hgb 29.1 pg (27.0-32.0); Mean Corpuscular Volume 90.9 fL (80-94); Mean Platelet Vol. 9.6 fl (6.2-12.0); NRBC Flagged by Analyzer 0 % (0-5); Neutrophil # 2.52 X10^3/uL (2.7-7.7); Neutrophil % 50.1 % (47-70); Platelet Count 149 K/mm3 (150-450); RBC Distribution Width CV 13.8 % (11.6-14.6); RBC Distribution Width SD 46.4 fl (35.1-43.9)
== END 2019-12-14 18:00 | disposition home or self-care (01) ==
LOC: LAB 09:25
PROVIDERS: Family Provider Family Medicine; PCP Family Medicine; Referring Provider Psychiatry & Neurology Child & Adolescent Psychiatry; Visit Provider Psychiatry & Neurology Child & Adolescent Psychiatry
DX: F31.81 Bipolar II disorder (principal); Z79.899 Other long term (current) drug therapy
CPT/HCPCS: 36415; 85025

== ENCOUNTER 2020-01-18 09:47 | Outpatient (RCR) | payer MEDICAID, SELFPAY ==
[2018-09-18 07:24] VITALS: BMI 27.1
[2019-12-21 10:51] LABS: Absolute Lymphocyte Count 2.05 X10^3/uL (0.83-4.51); Basophil# 0.02 X10^3/uL; Basophil% 0.4 % (0-1); Eosinophil# 0.11 X10^3/uL; Eosinophils% 2.4 % (0-5); Hematocrit 42.9 % (40-54); Hemoglobin 13.2 g/dL (13.0-16.5); Lymphocyte # 2.05 X10^3/ul (4.0); Lymphocyte % 43.9 % (19-41); Mean Corp Hgb Conc 30.8 g/dL (32-36); Mean Corpuscular Hgb 28.8 pg (27.0-32.0); Mean Corpuscular Volume 93.7 fL (80-94); Mean Platelet Vol. 9.5 fl (6.2-12.0); Monocyte# 0.47 X10^3/uL; Monocyte% 10.1 % (0-10); NRBC Flagged by Analyzer 0 % (0-5); Neutrophil # 2.01 X10^3/uL (2.7-7.7); Platelet Count 173 K/mm3 (150-450); RBC Distribution Width CV 14.1 % (11.6-14.6); RBC Distribution Width SD 48.7 fl (35.1-43.9); Red Blood Count 4.58 M/mm3 (4.6-6.2); White Blood Count 4.7 K/mm3 (4.4-11.0)
[2019-12-28 10:31] LABS: Absolute Lymphocyte Count 1.81 X10^3/uL (0.83-4.51); Absolute Neutrophil Count 2.5 X10^3/uL (2.0-7.7); Basophil# 0.03 X10^3/uL; Basophil% 0.6 % (0-1); Eosinophil# 0.11 X10^3/uL; Eosinophils% 2.2 % (0-5); Hemoglobin 13.2 g/dL (13.0-16.5); Lymphocyte # 1.81 X10^3/ul (4.0); Lymphocyte % 36.6 % (19-41); Mean Corp Hgb Conc 31.4 g/dL (32-36); Mean Corpuscular Hgb 29.2 pg (27.0-32.0); Mean Corpuscular Volume 92.9 fL (80-94); Mean Platelet Vol. 9.6 fl (6.2-12.0); Monocyte# 0.51 X10^3/uL; Monocyte% 10.3 % (0-10); NRBC Flagged by Analyzer 0 % (0-5); Neutrophil # 2.46 X10^3/uL (2.7-7.7); Neutrophil % 49.9 % (47-70); Platelet Count 143 K/mm3 (150-450); RBC Distribution Width SD 47.9 fl (35.1-43.9); Red Blood Count 4.52 M/mm3 (4.6-6.2); White Blood Count 4.9 K/mm3 (4.4-11.0)
[2020-01-11 10:20] LABS: Absolute Lymphocyte Count 1.68 X10^3/uL (0.83-4.51); Absolute Neutrophil Count 2.3 X10^3/uL (2.0-7.7); Basophil# 0.02 X10^3/uL; Basophil% 0.4 % (0-1); Eosinophil# 0.12 X10^3/uL; Eosinophils% 2.5 % (0-5); Hematocrit 42.4 % (40-54); Hemoglobin 13.4 g/dL (13.0-16.5); Lymphocyte # 1.68 X10^3/ul (4.0); Lymphocyte % 35.1 % (19-41); Mean Corp Hgb Conc 31.6 g/dL (32-36); Mean Corpuscular Hgb 29.3 pg (27.0-32.0); Mean Corpuscular Volume 92.8 fL (80-94); Mean Platelet Vol. 9.3 fl (6.2-12.0); Monocyte# 0.62 X10^3/uL; Monocyte% 12.9 % (0-10); NRBC Flagged by Analyzer 0 % (0-5); Neutrophil # 2.33 X10^3/uL (2.7-7.7); Neutrophil % 48.7 % (47-70); Platelet Count 164 K/mm3 (150-450); RBC Distribution Width CV 13.7 % (11.6-14.6); RBC Distribution Width SD 46.3 fl (35.1-43.9); Red Blood Count 4.57 M/mm3 (4.6-6.2); White Blood Count 4.8 K/mm3 (4.4-11.0)
[2020-01-18 10:36] LABS: Absolute Lymphocyte Count 1.77 X10^3/uL (0.83-4.51); Basophil# 0.02 X10^3/uL; Basophil% 0.5 % (0-1); Eosinophil# 0.11 X10^3/uL; Eosinophils% 2.5 % (0-5); Hematocrit 41.5 % (40-54); Hemoglobin 12.8 g/dL (13.0-16.5); Lymphocyte # 1.77 X10^3/ul (4.0); Lymphocyte % 40.6 % (19-41); Mean Corp Hgb Conc 30.8 g/dL (32-36); Mean Corpuscular Hgb 28.9 pg (27.0-32.0); Mean Corpuscular Volume 93.7 fL (80-94); Mean Platelet Vol. 9.5 fl (6.2-12.0); Monocyte# 0.49 X10^3/uL; Monocyte% 11.2 % (0-10); NRBC Flagged by Analyzer 0 % (0-5); Neutrophil # 1.95 X10^3/uL (2.7-7.7); Neutrophil % 44.7 % (47-70); Platelet Count 168 K/mm3 (150-450); RBC Distribution Width CV 13.8 % (11.6-14.6); Red Blood Count 4.43 M/mm3 (4.6-6.2); White Blood Count 4.4 K/mm3 (4.4-11.0)
[2020-01-18 10:52] LABS: Valproic Acid (Depakene) Level 86 ug/mL (50-100)
[2020-01-18 10:55] LABS: ALB/GLOB Ratio 0.8 RATIO (0.9-2.4); AST(SGOT) 13 U/L (15-37); Alanine Aminotransfer ALT/SGPT 13 U/L (16-61); Albumin, Serum 3.6 g/dL (3.2-5.0); Alkaline Phosphatase 50 U/L (45-117); Anion Gap 3 (5-15); BUN 15 mg/dL (7-18); BUN/Creat Ratio 17.2 RATIO (10-20); Calcium,Total 9.7 mg/dL (8.5-10.1); Chloride 107 mmol/L (98-107); Creatinine, Serum 0.87 mg/dL (0.70-1.30); EST Glomerular Filtration Rate 104 mL/min (>60); Est Glom Filt Rate - Afr Amer 125 mL/min (>60); Globulin 4.6 g/dL (2.2-4.2); Glucose 83 mg/dL (74-106); Potassium 4.2 mmol/L (3.5-5.1); Protein, Total 8.2 g/dL (6.4-8.2); Sodium Level 141 mmol/L (136-145)
== END 2020-01-18 18:00 | disposition home or self-care (01) ==
LOC: LAB 09:47
PROVIDERS: Family Provider Family Medicine; PCP Family Medicine; Referring Provider Psychiatry & Neurology Child & Adolescent Psychiatry; Visit Provider Psychiatry & Neurology Child & Adolescent Psychiatry
DX: Z79.899 Other long term (current) drug therapy (principal)
CPT/HCPCS: 36415; 80053; 80164; 85025

== ENCOUNTER 2020-02-15 10:20 | Outpatient (RCR) | payer MEDICAID, SELFPAY ==
[2018-09-18 07:24] VITALS: BMI 27.1
[2020-01-25 13:50] LABS: Absolute Lymphocyte Count 2.04 X10^3/uL (0.83-4.51); Absolute Neutrophil Count 2.8 X10^3/uL (2.0-7.7); Basophil# 0.01 X10^3/uL; Basophil% 0.2 % (0-1); Eosinophil# 0.13 X10^3/uL; Eosinophils% 2.4 % (0-5); Hematocrit 42.7 % (40-54); Hemoglobin 13.5 g/dL (13.0-16.5); Lymphocyte # 2.04 X10^3/ul (4.0); Lymphocyte % 37.6 % (19-41); Mean Corp Hgb Conc 31.6 g/dL (32-36); Mean Corpuscular Hgb 29.4 pg (27.0-32.0); Mean Platelet Vol. 10.2 fl (6.2-12.0); Monocyte# 0.48 X10^3/uL; Monocyte% 8.8 % (0-10); NRBC Flagged by Analyzer 0 % (0-5); Neutrophil # 2.76 X10^3/uL (2.7-7.7); Neutrophil % 50.8 % (47-70); Platelet Count 154 K/mm3 (150-450); RBC Distribution Width CV 13.9 % (11.6-14.6); Red Blood Count 4.59 M/mm3 (4.6-6.2); White Blood Count 5.4 K/mm3 (4.4-11.0)
[2020-02-01 11:37] LABS: Absolute Lymphocyte Count 2.42 X10^3/uL (0.83-4.51); Absolute Neutrophil Count 2.6 X10^3/uL (2.0-7.7); Basophil# 0.02 X10^3/uL; Basophil% 0.3 % (0-1); Eosinophil# 0.11 X10^3/uL; Eosinophils% 1.9 % (0-5); Hematocrit 42.3 % (40-54); Hemoglobin 13.3 g/dL (13.0-16.5); Lymphocyte # 2.42 X10^3/ul (4.0); Lymphocyte % 41.4 % (19-41); Mean Corp Hgb Conc 31.4 g/dL (32-36); Mean Corpuscular Hgb 29.4 pg (27.0-32.0); Mean Corpuscular Volume 93.4 fL (80-94); Monocyte# 0.69 X10^3/uL; Monocyte% 11.8 % (0-10); NRBC Flagged by Analyzer 0 % (0-5); Neutrophil # 2.57 X10^3/uL (2.7-7.7); Neutrophil % 43.9 % (47-70); Platelet Count 162 K/mm3 (150-450); RBC Distribution Width CV 13.9 % (11.6-14.6); RBC Distribution Width SD 47.5 fl (35.1-43.9); Red Blood Count 4.53 M/mm3 (4.6-6.2); White Blood Count 5.9 K/mm3 (4.4-11.0)
[2020-02-08 10:08] LABS: Absolute Lymphocyte Count 1.85 X10^3/uL (0.83-4.51); Absolute Neutrophil Count 4.4 X10^3/uL (2.0-7.7); Basophil# 0.02 X10^3/uL; Basophil% 0.3 % (0-1); Eosinophil# 0.16 X10^3/uL; Eosinophils% 2.2 % (0-5); Hematocrit 41.2 % (40-54); Hemoglobin 13.4 g/dL (13.0-16.5); Lymphocyte # 1.85 X10^3/ul (4.0); Lymphocyte % 25.4 % (19-41); Mean Corp Hgb Conc 32.5 g/dL (32-36); Mean Corpuscular Hgb 29.6 pg (27.0-32.0); Mean Corpuscular Volume 90.9 fL (80-94); Mean Platelet Vol. 9.9 fl (6.2-12.0); Monocyte# 0.81 X10^3/uL; Monocyte% 11.1 % (0-10); NRBC Flagged by Analyzer 0 % (0-5); Neutrophil # 4.39 X10^3/uL (2.7-7.7); Neutrophil % 60.4 % (47-70); Platelet Count 154 K/mm3 (150-450); RBC Distribution Width SD 46.5 fl (35.1-43.9); Red Blood Count 4.53 M/mm3 (4.6-6.2); White Blood Count 7.3 K/mm3 (4.4-11.0)
[2020-02-15 10:38] LABS: Absolute Lymphocyte Count 2.18 X10^3/uL (0.83-4.51); Absolute Neutrophil Count 2.5 X10^3/uL (2.0-7.7); Basophil# 0.02 X10^3/uL; Basophil% 0.4 % (0-1); Eosinophil# 0.09 X10^3/uL; Eosinophils% 1.7 % (0-5); Hematocrit 40.2 % (40-54); Hemoglobin 13.3 g/dL (13.0-16.5); Lymphocyte # 2.18 X10^3/ul (4.0); Lymphocyte % 40.1 % (19-41); Mean Corp Hgb Conc 33.1 g/dL (32-36); Mean Corpuscular Hgb 30.8 pg (27.0-32.0); Mean Corpuscular Volume 93.1 fL (80-94); Mean Platelet Vol. 9.2 fl (6.2-12.0); Monocyte# 0.58 X10^3/uL; Monocyte% 10.7 % (0-10); NRBC Flagged by Analyzer 0 % (0-5); Neutrophil # 2.53 X10^3/uL (2.7-7.7); Neutrophil % 46.4 % (47-70); Platelet Count 138 K/mm3 (150-450); RBC Distribution Width CV 14.6 % (11.6-14.6); RBC Distribution Width SD 47.5 fl (35.1-43.9); Red Blood Count 4.32 M/mm3 (4.6-6.2); White Blood Count 5.4 K/mm3 (4.4-11.0)
== END 2020-02-15 18:00 | disposition home or self-care (01) ==
LOC: LAB 10:20
PROVIDERS: Family Provider Family Medicine; PCP Family Medicine; Referring Provider Psychiatry & Neurology Child & Adolescent Psychiatry; Visit Provider Psychiatry & Neurology Child & Adolescent Psychiatry
DX: Z79.899 Other long term (current) drug therapy (principal)
CPT/HCPCS: 36415; 85025

== ENCOUNTER 2020-03-14 09:30 | Outpatient (RCR) | payer MEDICAID, SELFPAY ==
[2018-09-18 07:24] VITALS: BMI 27.1
[2020-02-22 10:54] LABS: Absolute Lymphocyte Count 2.33 X10^3/uL (0.83-4.51); Absolute Neutrophil Count 2.4 X10^3/uL (2.0-7.7); Basophil# 0.02 X10^3/uL; Basophil% 0.4 % (0-1); Eosinophil# 0.13 X10^3/uL; Eosinophils% 2.4 % (0-5); Hematocrit 41.6 % (40-54); Hemoglobin 13.3 g/dL (13.0-16.5); Lymphocyte # 2.33 X10^3/ul (4.0); Lymphocyte % 42.6 % (19-41); Mean Corpuscular Hgb 29.2 pg (27.0-32.0); Mean Corpuscular Volume 91.4 fL (80-94); Mean Platelet Vol. 9.8 fl (6.2-12.0); NRBC Flagged by Analyzer 0 % (0-5); Neutrophil # 2.36 X10^3/uL (2.7-7.7); Neutrophil % 43.1 % (47-70); Platelet Count 145 K/mm3 (150-450); RBC Distribution Width SD 46.7 fl (35.1-43.9); Red Blood Count 4.55 M/mm3 (4.6-6.2); White Blood Count 5.5 K/mm3 (4.4-11.0)
[2020-02-29 10:56] LABS: Absolute Lymphocyte Count 1.86 X10^3/uL (0.83-4.51); Basophil# 0.02 X10^3/uL; Basophil% 0.4 % (0-1); Eosinophils% 2.2 % (0-5); Hematocrit 40.8 % (40-54); Hemoglobin 13.1 g/dL (13.0-16.5); Lymphocyte # 1.86 X10^3/ul (4.0); Lymphocyte % 40.8 % (19-41); Mean Corp Hgb Conc 32.1 g/dL (32-36); Mean Corpuscular Hgb 29.2 pg (27.0-32.0); Mean Corpuscular Volume 91.1 fL (80-94); Mean Platelet Vol. 9.9 fl (6.2-12.0); Monocyte# 0.59 X10^3/uL; Monocyte% 12.9 % (0-10); NRBC Flagged by Analyzer 0 % (0-5); Neutrophil # 1.97 X10^3/uL (2.7-7.7); Neutrophil % 43.3 % (47-70); Platelet Count 133 K/mm3 (150-450); RBC Distribution Width CV 14.2 % (11.6-14.6); RBC Distribution Width SD 47.5 fl (35.1-43.9); Red Blood Count 4.48 M/mm3 (4.6-6.2); White Blood Count 4.6 K/mm3 (4.4-11.0)
[2020-03-08 11:14] LABS: Absolute Lymphocyte Count 1.63 X10^3/uL (0.83-4.51); Absolute Neutrophil Count 2.1 X10^3/uL (2.0-7.7); Basophil# 0.02 X10^3/uL; Basophil% 0.4 % (0-1); Eosinophil# 0.14 X10^3/uL; Eosinophils% 3.1 % (0-5); Hematocrit 42.1 % (40-54); Hemoglobin 13.7 g/dL (13.0-16.5); Lymphocyte # 1.63 X10^3/ul (4.0); Lymphocyte % 36.1 % (19-41); Mean Corp Hgb Conc 32.5 g/dL (32-36); Mean Platelet Vol. 9.6 fl (6.2-12.0); Monocyte# 0.58 X10^3/uL; Monocyte% 12.8 % (0-10); NRBC Flagged by Analyzer 0 % (0-5); Neutrophil # 2.12 X10^3/uL (2.7-7.7); Neutrophil % 46.9 % (47-70); Platelet Count 159 K/mm3 (150-450); RBC Distribution Width CV 13.9 % (11.6-14.6); RBC Distribution Width SD 45.6 fl (35.1-43.9); Red Blood Count 4.73 M/mm3 (4.6-6.2); White Blood Count 4.5 K/mm3 (4.4-11.0)
[2020-03-14 09:58] LABS: Absolute Lymphocyte Count 1.82 X10^3/uL (0.83-4.51); Absolute Neutrophil Count 1.9 X10^3/uL (2.0-7.7); Basophil# 0.02 X10^3/uL; Basophil% 0.5 % (0-1); Eosinophil# 0.14 X10^3/uL; Eosinophils% 3.2 % (0-5); Hemoglobin 13.6 g/dL (13.0-16.5); Lymphocyte # 1.82 X10^3/ul (4.0); Lymphocyte % 41.8 % (19-41); Mean Corp Hgb Conc 32.4 g/dL (32-36); Mean Corpuscular Hgb 28.8 pg (27.0-32.0); Mean Platelet Vol. 9.4 fl (6.2-12.0); Monocyte# 0.49 X10^3/uL; Monocyte% 11.3 % (0-10); NRBC Flagged by Analyzer 0 % (0-5); Neutrophil # 1.86 X10^3/uL (2.7-7.7); Neutrophil % 42.7 % (47-70); Platelet Count 153 K/mm3 (150-450); RBC Distribution Width CV 13.9 % (11.6-14.6); RBC Distribution Width SD 45.2 fl (35.1-43.9); Red Blood Count 4.72 M/mm3 (4.6-6.2); White Blood Count 4.4 K/mm3 (4.4-11.0)
[2020-03-14 10:41] LABS: Valproic Acid (Depakene) Level 113 ug/mL (50-100)
[2020-03-14 10:42] LABS: ALB/GLOB Ratio 0.8 RATIO (0.9-2.4); AST(SGOT) 13 U/L (15-37); Alanine Aminotransfer ALT/SGPT 13 U/L (16-61); Albumin, Serum 3.6 g/dL (3.2-5.0); Alkaline Phosphatase 46 U/L (45-117); Anion Gap 7 (5-15); BUN 16 mg/dL (7-18); Calcium,Total 9.6 mg/dL (8.5-10.1); Chloride 104 mmol/L (98-107); EST Glomerular Filtration Rate 115 mL/min (>60); Est Glom Filt Rate - Afr Amer 139 mL/min (>60); Globulin 4.5 g/dL (2.2-4.2); Glucose 82 mg/dL (74-106); Potassium 4.3 mmol/L (3.5-5.1); Protein, Total 8.1 g/dL (6.4-8.2); Sodium Level 138 mmol/L (136-145)
== END 2020-03-14 18:00 | disposition home or self-care (01) ==
LOC: LAB 09:30
PROVIDERS: Family Provider Family Medicine; PCP Family Medicine; Referring Provider Psychiatry & Neurology Child & Adolescent Psychiatry; Visit Provider Psychiatry & Neurology Child & Adolescent Psychiatry
DX: Z79.899 Other long term (current) drug therapy (principal)
CPT/HCPCS: 36415; 80053; 80164; 85025

== ENCOUNTER 2020-04-11 09:31 | Outpatient (RCR) | payer MEDICAID, SELFPAY ==
[2018-09-18 07:24] VITALS: BMI 27.1
[2020-03-23 10:50] LABS: Absolute Lymphocyte Count 1.99 X10^3/uL (0.83-4.51); Absolute Neutrophil Count 2.2 X10^3/uL (2.0-7.7); Basophil# 0.02 X10^3/uL; Basophil% 0.4 % (0-1); Eosinophil# 0.13 X10^3/uL; Eosinophils% 2.7 % (0-5); Hematocrit 43.5 % (40-54); Hemoglobin 13.8 g/dL (13.0-16.5); Lymphocyte # 1.99 X10^3/ul (4.0); Lymphocyte % 41.2 % (19-41); Mean Corp Hgb Conc 31.7 g/dL (32-36); Mean Corpuscular Hgb 28.8 pg (27.0-32.0); Mean Corpuscular Volume 90.8 fL (80-94); Mean Platelet Vol. 9.8 fl (6.2-12.0); Monocyte# 0.49 X10^3/uL; Monocyte% 10.1 % (0-10); NRBC Flagged by Analyzer 0 % (0-5); Neutrophil # 2.19 X10^3/uL (2.7-7.7); Neutrophil % 45.4 % (47-70); Platelet Count 175 K/mm3 (150-450); RBC Distribution Width SD 46.9 fl (35.1-43.9); Red Blood Count 4.79 M/mm3 (4.6-6.2); White Blood Count 4.8 K/mm3 (4.4-11.0)
[2020-03-28 10:57] LABS: Absolute Neutrophil Count 2.2 X10^3/uL (2.0-7.7); Basophil# 0.02 X10^3/uL; Basophil% 0.5 % (0-1); Eosinophil# 0.09 X10^3/uL; Hematocrit 40.9 % (40-54); Hemoglobin 13.5 g/dL (13.0-16.5); Lymphocyte % 36.2 % (19-41); Mean Corpuscular Hgb 29.5 pg (27.0-32.0); Mean Corpuscular Volume 89.3 fL (80-94); Mean Platelet Vol. 9.6 fl (6.2-12.0); Monocyte# 0.46 X10^3/uL; Monocyte% 10.4 % (0-10); NRBC Flagged by Analyzer 0 % (0-5); Neutrophil # 2.23 X10^3/uL (2.7-7.7); Neutrophil % 50.4 % (47-70); Platelet Count 127 K/mm3 (150-450); RBC Distribution Width SD 45.4 fl (35.1-43.9); Red Blood Count 4.58 M/mm3 (4.6-6.2); White Blood Count 4.4 K/mm3 (4.4-11.0)
[2020-04-06 10:16] LABS: Absolute Lymphocyte Count 2.39 X10^3/uL (0.83-4.51); Absolute Neutrophil Count 2.4 X10^3/uL (2.0-7.7); Basophil# 0.03 X10^3/uL; Basophil% 0.5 % (0-1); Eosinophil# 0.14 X10^3/uL; Eosinophils% 2.5 % (0-5); Hematocrit 44.3 % (40-54); Hemoglobin 14.2 g/dL (13.0-16.5); Lymphocyte # 2.39 X10^3/ul (4.0); Lymphocyte % 42.2 % (19-41); Mean Corp Hgb Conc 32.1 g/dL (32-36); Mean Corpuscular Hgb 29.2 pg (27.0-32.0); Mean Corpuscular Volume 91.2 fL (80-94); Mean Platelet Vol. 10.2 fl (6.2-12.0); Monocyte# 0.72 X10^3/uL; Monocyte% 12.7 % (0-10); NRBC Flagged by Analyzer 0 % (0-5); Neutrophil # 2.36 X10^3/uL (2.7-7.7); Neutrophil % 41.7 % (47-70); Platelet Count 143 K/mm3 (150-450); RBC Distribution Width CV 14.1 % (11.6-14.6); RBC Distribution Width SD 47.5 fl (35.1-43.9); Red Blood Count 4.86 M/mm3 (4.6-6.2); White Blood Count 5.7 K/mm3 (4.4-11.0)
[2020-04-11 10:31] LABS: Absolute Lymphocyte Count 2.08 X10^3/uL (0.83-4.51); Absolute Neutrophil Count 2.1 X10^3/uL (2.0-7.7); Basophil# 0.02 X10^3/uL; Basophil% 0.4 % (0-1); Eosinophil# 0.12 X10^3/uL; Eosinophils% 2.4 % (0-5); Hematocrit 42.6 % (40-54); Hemoglobin 13.5 g/dL (13.0-16.5); Lymphocyte # 2.08 X10^3/ul (4.0); Lymphocyte % 42.1 % (19-41); Mean Corp Hgb Conc 31.7 g/dL (32-36); Mean Corpuscular Hgb 28.7 pg (27.0-32.0); Mean Corpuscular Volume 90.6 fL (80-94); Mean Platelet Vol. 9.8 fl (6.2-12.0); Monocyte# 0.63 X10^3/uL; Monocyte% 12.8 % (0-10); NRBC Flagged by Analyzer 0 % (0-5); Neutrophil # 2.08 X10^3/uL (2.7-7.7); Neutrophil % 42.1 % (47-70); Platelet Count 143 K/mm3 (150-450); RBC Distribution Width CV 14.2 % (11.6-14.6); RBC Distribution Width SD 47.8 fl (35.1-43.9); White Blood Count 4.9 K/mm3 (4.4-11.0)
== END 2020-04-11 18:00 | disposition home or self-care (01) ==
LOC: LAB 09:31
PROVIDERS: Family Provider Family Medicine; PCP Family Medicine; Referring Provider Psychiatry & Neurology Child & Adolescent Psychiatry; Visit Provider Psychiatry & Neurology Child & Adolescent Psychiatry
DX: Z79.899 Other long term (current) drug therapy (principal)
CPT/HCPCS: 36415; 85025

== ENCOUNTER 2020-05-16 09:11 | Outpatient (RCR) | payer MEDICAID, SELFPAY ==
[2018-09-18 07:24] VITALS: BMI 27.1
[2020-04-18 10:35] LABS: Absolute Lymphocyte Count 1.72 X10^3/uL (0.83-4.51); Absolute Neutrophil Count 2.4 X10^3/uL (2.0-7.7); Basophil# 0.02 X10^3/uL; Basophil% 0.4 % (0-1); Eosinophil# 0.12 X10^3/uL; Eosinophils% 2.5 % (0-5); Hematocrit 42.1 % (40-54); Hemoglobin 13.2 g/dL (13.0-16.5); Lymphocyte # 1.72 X10^3/ul (4.0); Lymphocyte % 35.6 % (19-41); Mean Corp Hgb Conc 31.4 g/dL (32-36); Mean Corpuscular Hgb 28.7 pg (27.0-32.0); Mean Corpuscular Volume 91.5 fL (80-94); Mean Platelet Vol. 9.5 fl (6.2-12.0); Monocyte# 0.54 X10^3/uL; Monocyte% 11.2 % (0-10); NRBC Flagged by Analyzer 0 % (0-5); Neutrophil # 2.41 X10^3/uL (2.7-7.7); Neutrophil % 49.9 % (47-70); Platelet Count 151 K/mm3 (150-450); RBC Distribution Width CV 14.2 % (11.6-14.6); RBC Distribution Width SD 48.2 fl (35.1-43.9); White Blood Count 4.8 K/mm3 (4.4-11.0)
[2020-04-25 10:21] LABS: Absolute Lymphocyte Count 1.71 X10^3/uL (0.83-4.51); Absolute Neutrophil Count 1.8 X10^3/uL (2.0-7.7); Basophil# 0.03 X10^3/uL; Basophil% 0.7 % (0-1); Eosinophil# 0.11 X10^3/uL; Eosinophils% 2.7 % (0-5); Hemoglobin 13.9 g/dL (13.0-16.5); Lymphocyte # 1.71 X10^3/ul (4.0); Lymphocyte % 41.8 % (19-41); Mean Corp Hgb Conc 31.6 g/dL (32-36); Mean Corpuscular Volume 91.9 fL (80-94); Mean Platelet Vol. 9.5 fl (6.2-12.0); Monocyte# 0.47 X10^3/uL; Monocyte% 11.5 % (0-10); NRBC Flagged by Analyzer 0 % (0-5); Neutrophil # 1.76 X10^3/uL (2.7-7.7); Neutrophil % 43.1 % (47-70); Platelet Count 134 K/mm3 (150-450); RBC Distribution Width CV 14.2 % (11.6-14.6); RBC Distribution Width SD 48.4 fl (35.1-43.9); Red Blood Count 4.79 M/mm3 (4.6-6.2); White Blood Count 4.1 K/mm3 (4.4-11.0)
[2020-05-02 10:46] LABS: Absolute Lymphocyte Count 2.27 X10^3/uL (0.83-4.51); Absolute Neutrophil Count 2.1 X10^3/uL (2.0-7.7); Basophil# 0.03 X10^3/uL; Basophil% 0.6 % (0-1); Eosinophil# 0.11 X10^3/uL; Eosinophils% 2.2 % (0-5); Hematocrit 44.1 % (40-54); Hemoglobin 13.9 g/dL (13.0-16.5); Lymphocyte # 2.27 X10^3/ul (4.0); Lymphocyte % 44.6 % (19-41); Mean Corp Hgb Conc 31.5 g/dL (32-36); Mean Corpuscular Hgb 29.1 pg (27.0-32.0); Mean Corpuscular Volume 92.3 fL (80-94); Mean Platelet Vol. 10.2 fl (6.2-12.0); Monocyte# 0.58 X10^3/uL; Monocyte% 11.4 % (0-10); NRBC Flagged by Analyzer 0 % (0-5); Neutrophil # 2.07 X10^3/uL (2.7-7.7); Neutrophil % 40.6 % (47-70); Platelet Count 147 K/mm3 (150-450); RBC Distribution Width CV 14.5 % (11.6-14.6); RBC Distribution Width SD 49.2 fl (35.1-43.9); Red Blood Count 4.78 M/mm3 (4.6-6.2); White Blood Count 5.1 K/mm3 (4.4-11.0)
[2020-05-09 10:22] LABS: Basophil# 0.02 X10^3/uL; Basophil% 0.4 % (0-1); Eosinophil# 0.12 X10^3/uL; Eosinophils% 2.7 % (0-5); Hematocrit 41.9 % (40-54); Hemoglobin 13.4 g/dL (13.0-16.5); Lymphocyte % 40.2 % (19-41); Mean Corpuscular Hgb 29.1 pg (27.0-32.0); Mean Corpuscular Volume 91.1 fL (80-94); Mean Platelet Vol. 9.7 fl (6.2-12.0); Monocyte# 0.53 X10^3/uL; Monocyte% 11.8 % (0-10); NRBC Flagged by Analyzer 0 % (0-5); Neutrophil # 1.99 X10^3/uL (2.7-7.7); Neutrophil % 44.5 % (47-70); Platelet Count 135 K/mm3 (150-450); RBC Distribution Width CV 14.7 % (11.6-14.6); RBC Distribution Width SD 48.7 fl (35.1-43.9); White Blood Count 4.5 K/mm3 (4.4-11.0)
[2020-05-16 10:32] LABS: Absolute Lymphocyte Count 1.71 X10^3/uL (0.83-4.51); Absolute Neutrophil Count 2.2 X10^3/uL (2.0-7.7); Basophil# 0.02 X10^3/uL; Basophil% 0.4 % (0-1); Eosinophil# 0.13 X10^3/uL; Eosinophils% 2.8 % (0-5); Hematocrit 41.8 % (40-54); Hemoglobin 13.1 g/dL (13.0-16.5); Lymphocyte # 1.71 X10^3/ul (4.0); Lymphocyte % 37.4 % (19-41); Mean Corp Hgb Conc 31.3 g/dL (32-36); Mean Corpuscular Hgb 28.7 pg (27.0-32.0); Mean Corpuscular Volume 91.7 fL (80-94); Mean Platelet Vol. 10.2 fl (6.2-12.0); Monocyte# 0.51 X10^3/uL; Monocyte% 11.2 % (0-10); NRBC Flagged by Analyzer 0 % (0-5); Neutrophil # 2.18 X10^3/uL (2.7-7.7); Neutrophil % 47.8 % (47-70); Platelet Count 143 K/mm3 (150-450); RBC Distribution Width CV 14.6 % (11.6-14.6); RBC Distribution Width SD 48.7 fl (35.1-43.9); Red Blood Count 4.56 M/mm3 (4.6-6.2); White Blood Count 4.6 K/mm3 (4.4-11.0)
[2020-06-17 09:54] LABS: Absolute Lymphocyte Count 2.01 X10^3/uL (0.83-4.51); Absolute Neutrophil Count 2.2 X10^3/uL (2.0-7.7); Basophil# 0.02 X10^3/uL; Basophil% 0.4 % (0-1); Eosinophil# 0.14 X10^3/uL; Eosinophils% 2.7 % (0-5); Hematocrit 41.9 % (40-54); Hemoglobin 13.3 g/dL (13.0-16.5); Lymphocyte # 2.01 X10^3/ul (0.83-4.51); Mean Corp Hgb Conc 31.7 g/dL (32-36); Mean Corpuscular Hgb 29.2 pg (27.0-32.0); Mean Corpuscular Volume 92.1 fL (80-94); Mean Platelet Vol. 9.8 fl (6.2-12.0); Monocyte# 0.73 X10^3/uL; Monocyte% 14.2 % (0-10); NRBC Flagged by Analyzer 0 % (0-5); Neutrophil # 2.23 X10^3/uL (2.7-7.7); Neutrophil % 43.3 % (47-70); Platelet Count 147 K/mm3 (150-450); RBC Distribution Width CV 14.6 % (11.6-14.6); RBC Distribution Width SD 49.7 fl (35.1-43.9); Red Blood Count 4.55 M/mm3 (4.6-6.2); White Blood Count 5.2 K/mm3 (4.4-11.0)
== END 2020-05-16 18:00 | disposition home or self-care (01) ==
LOC: LAB 09:11
PROVIDERS: Family Provider Family Medicine; PCP Family Medicine; Referring Provider Psychiatry & Neurology Child & Adolescent Psychiatry; Visit Provider Psychiatry & Neurology Child & Adolescent Psychiatry
DX: Z79.899 Other long term (current) drug therapy (principal)
CPT/HCPCS: 36415; 85025

== ENCOUNTER 2020-06-17 09:22 | Outpatient (RCR) | payer MEDICAID, SELFPAY ==
[2018-09-18 07:24] VITALS: BMI 27.1
[2020-05-23 10:42] LABS: Absolute Lymphocyte Count 1.71 X10^3/uL (0.83-4.51); Absolute Neutrophil Count 1.7 X10^3/uL (2.0-7.7); Basophil# 0.02 X10^3/uL; Basophil% 0.5 % (0-1); Eosinophil# 0.09 X10^3/uL; Eosinophils% 2.2 % (0-5); Hematocrit 41.3 % (40-54); Hemoglobin 13.1 g/dL (13.0-16.5); Lymphocyte # 1.71 X10^3/ul (4.0); Lymphocyte % 42.3 % (19-41); Mean Corp Hgb Conc 31.7 g/dL (32-36); Mean Corpuscular Volume 91.6 fL (80-94); Mean Platelet Vol. 9.8 fl (6.2-12.0); Monocyte# 0.48 X10^3/uL; Monocyte% 11.9 % (0-10); NRBC Flagged by Analyzer 0 % (0-5); Neutrophil # 1.73 X10^3/uL (2.7-7.7); Neutrophil % 42.9 % (47-70); Platelet Count 145 K/mm3 (150-450); RBC Distribution Width CV 14.7 % (11.6-14.6); RBC Distribution Width SD 49.2 fl (35.1-43.9); Red Blood Count 4.51 M/mm3 (4.6-6.2)
[2020-05-30 10:35] LABS: Absolute Lymphocyte Count 1.84 X10^3/uL (0.83-4.51); Absolute Neutrophil Count 1.2 X10^3/uL (2.0-7.7); Basophil# 0.02 X10^3/uL; Basophil% 0.5 % (0-1); Eosinophil# 0.12 X10^3/uL; Eosinophils% 3.3 % (0-5); Hematocrit 42.8 % (40-54); Hemoglobin 13.4 g/dL (13.0-16.5); Lymphocyte # 1.84 X10^3/ul (4.0); Lymphocyte % 49.9 % (19-41); Mean Corp Hgb Conc 31.3 g/dL (32-36); Mean Corpuscular Hgb 28.8 pg (27.0-32.0); Mean Corpuscular Volume 91.8 fL (80-94); Mean Platelet Vol. 10.1 fl (6.2-12.0); Monocyte# 0.47 X10^3/uL; Monocyte% 12.7 % (0-10); NRBC Flagged by Analyzer 0 % (0-5); Neutrophil # 1.22 X10^3/uL (2.7-7.7); Neutrophil % 33.1 % (47-70); Platelet Count 134 K/mm3 (150-450); RBC Distribution Width CV 14.6 % (11.6-14.6); RBC Distribution Width SD 49.1 fl (35.1-43.9); Red Blood Count 4.66 M/mm3 (4.6-6.2); White Blood Count 3.7 K/mm3 (4.4-11.0)
[2020-06-03 11:18] LABS: Absolute Lymphocyte Count 1.55 X10^3/uL (0.83-4.51); Absolute Neutrophil Count 1.7 X10^3/uL (2.0-7.7); Basophil# 0.02 X10^3/uL; Basophil% 0.5 % (0-1); Eosinophil# 0.11 X10^3/uL; Eosinophils% 2.9 % (0-5); Hematocrit 44.2 % (40-54); Hemoglobin 14.1 g/dL (13.0-16.5); Lymphocyte # 1.55 X10^3/ul (0.83-4.51); Lymphocyte % 40.3 % (19-41); Mean Corp Hgb Conc 31.9 g/dL (32-36); Mean Corpuscular Hgb 29.1 pg (27.0-32.0); Mean Corpuscular Volume 91.1 fL (80-94); Mean Platelet Vol. 10.2 fl (6.2-12.0); Monocyte# 0.41 X10^3/uL; Monocyte% 10.6 % (0-10); NRBC Flagged by Analyzer 0 % (0-5); Neutrophil # 1.74 X10^3/uL (2.7-7.7); Neutrophil % 45.2 % (47-70); Platelet Count 143 K/mm3 (150-450); RBC Distribution Width CV 14.4 % (11.6-14.6); RBC Distribution Width SD 48.7 fl (35.1-43.9); Red Blood Count 4.85 M/mm3 (4.6-6.2); White Blood Count 3.9 K/mm3 (4.4-11.0)
[2020-06-03 11:42] LABS: Valproic Acid (Depakene) Level 107 ug/mL (50-100)
[2020-06-03 11:48] LABS: ALB/GLOB Ratio 0.8 RATIO (0.9-2.4); AST(SGOT) 8 U/L (15-37); Alanine Aminotransfer ALT/SGPT 14 U/L (16-61); Albumin, Serum 3.5 g/dL (3.2-5.0); Alkaline Phosphatase 47 U/L (45-117); Anion Gap 3 (5-15); BUN 13 mg/dL (7-18); BUN/Creat Ratio 14.7 RATIO (10-20); Calcium,Total 9.5 mg/dL (8.5-10.1); Chloride 104 mmol/L (98-107); Creatinine, Serum 0.88 mg/dL (0.70-1.30); EST Glomerular Filtration Rate 102 mL/min (>60); Est Glom Filt Rate - Afr Amer 123 mL/min (>60); Globulin 4.6 g/dL (2.2-4.2); Glucose 86 mg/dL (74-106); Potassium 4.2 mmol/L (3.5-5.1); Protein, Total 8.1 g/dL (6.4-8.2); Sodium Level 139 mmol/L (136-145)
[2020-06-06 10:00] LABS: Absolute Lymphocyte Count 1.84 X10^3/uL (0.83-4.51); Absolute Neutrophil Count 2.2 X10^3/uL (2.0-7.7); Basophil# 0.03 X10^3/uL; Basophil% 0.6 % (0-1); Eosinophil# 0.12 X10^3/uL; Eosinophils% 2.5 % (0-5); Hematocrit 42.9 % (40-54); Hemoglobin 13.6 g/dL (13.0-16.5); Lymphocyte # 1.84 X10^3/ul (0.83-4.51); Lymphocyte % 38.8 % (19-41); Mean Corp Hgb Conc 31.7 g/dL (32-36); Mean Corpuscular Hgb 29.3 pg (27.0-32.0); Mean Corpuscular Volume 92.5 fL (80-94); Mean Platelet Vol. 9.9 fl (6.2-12.0); Monocyte% 10.5 % (0-10); NRBC Flagged by Analyzer 0 % (0-5); Neutrophil # 2.23 X10^3/uL (2.7-7.7); Neutrophil % 47.2 % (47-70); Platelet Count 130 K/mm3 (150-450); RBC Distribution Width CV 14.7 % (11.6-14.6); RBC Distribution Width SD 50.3 fl (35.1-43.9); Red Blood Count 4.64 M/mm3 (4.6-6.2); White Blood Count 4.7 K/mm3 (4.4-11.0)
[2020-06-08 10:17] LABS: Absolute Lymphocyte Count 2.04 X10^3/uL (0.83-4.51); Absolute Neutrophil Count 1.8 X10^3/uL (2.0-7.7); Basophil# 0.02 X10^3/uL; Basophil% 0.4 % (0-1); Eosinophil# 0.15 X10^3/uL; Eosinophils% 3.3 % (0-5); Hematocrit 41.6 % (40-54); Hemoglobin 13.2 g/dL (13.0-16.5); Lymphocyte # 2.04 X10^3/ul (0.83-4.51); Lymphocyte % 44.5 % (19-41); Mean Corp Hgb Conc 31.7 g/dL (32-36); Mean Corpuscular Hgb 29.2 pg (27.0-32.0); Mean Platelet Vol. 9.9 fl (6.2-12.0); Monocyte# 0.51 X10^3/uL; Monocyte% 11.1 % (0-10); NRBC Flagged by Analyzer 0 % (0-5); Neutrophil # 1.84 X10^3/uL (2.7-7.7); Neutrophil % 40.3 % (47-70); Platelet Count 137 K/mm3 (150-450); RBC Distribution Width CV 14.6 % (11.6-14.6); RBC Distribution Width SD 49.1 fl (35.1-43.9); Red Blood Count 4.52 M/mm3 (4.6-6.2); White Blood Count 4.6 K/mm3 (4.4-11.0)
[2020-06-10 10:16] LABS: Absolute Lymphocyte Count 1.92 X10^3/uL (0.83-4.51); Absolute Neutrophil Count 2.4 X10^3/uL (2.0-7.7); Basophil# 0.02 X10^3/uL; Basophil% 0.4 % (0-1); Hematocrit 43.5 % (40-54); Hemoglobin 13.4 g/dL (13.0-16.5); Lymphocyte # 1.92 X10^3/ul (0.83-4.51); Lymphocyte % 38.6 % (19-41); Mean Corp Hgb Conc 30.8 g/dL (32-36); Mean Corpuscular Hgb 28.1 pg (27.0-32.0); Mean Corpuscular Volume 91.2 fL (80-94); Mean Platelet Vol. 9.7 fl (6.2-12.0); Monocyte# 0.55 X10^3/uL; Monocyte% 11.1 % (0-10); NRBC Flagged by Analyzer 0 % (0-5); Neutrophil # 2.37 X10^3/uL (2.7-7.7); Neutrophil % 47.7 % (47-70); Platelet Count 144 K/mm3 (150-450); RBC Distribution Width CV 14.4 % (11.6-14.6); RBC Distribution Width SD 48.2 fl (35.1-43.9); Red Blood Count 4.77 M/mm3 (4.6-6.2)
[2020-06-13 11:56] LABS: Absolute Lymphocyte Count 1.56 X10^3/uL (0.83-4.51); Absolute Neutrophil Count 1.9 X10^3/uL (2.0-7.7); Basophil# 0.02 X10^3/uL; Basophil% 0.5 % (0-1); Eosinophil# 0.09 X10^3/uL; Eosinophils% 2.3 % (0-5); Hematocrit 41.4 % (40-54); Hemoglobin 13.1 g/dL (13.0-16.5); Lymphocyte # 1.56 X10^3/ul (0.83-4.51); Lymphocyte % 39.1 % (19-41); Mean Corp Hgb Conc 31.6 g/dL (32-36); Mean Corpuscular Hgb 28.7 pg (27.0-32.0); Mean Corpuscular Volume 90.6 fL (80-94); Mean Platelet Vol. 10.1 fl (6.2-12.0); Monocyte# 0.43 X10^3/uL; Monocyte% 10.8 % (0-10); NRBC Flagged by Analyzer 0 % (0-5); Neutrophil # 1.87 X10^3/uL (2.7-7.7); Neutrophil % 46.8 % (47-70); Platelet Count 133 K/mm3 (150-450); RBC Distribution Width CV 14.6 % (11.6-14.6); RBC Distribution Width SD 48.5 fl (35.1-43.9); Red Blood Count 4.57 M/mm3 (4.6-6.2)
[2020-06-15 09:42] LABS: Absolute Lymphocyte Count 1.69 X10^3/uL (0.83-4.51); Absolute Neutrophil Count 1.8 X10^3/uL (2.0-7.7); Basophil# 0.02 X10^3/uL; Basophil% 0.5 % (0-1); Eosinophil# 0.11 X10^3/uL; Eosinophils% 2.7 % (0-5); Hematocrit 40.4 % (40-54); Hemoglobin 12.6 g/dL (13.0-16.5); Lymphocyte # 1.69 X10^3/ul (0.83-4.51); Lymphocyte % 40.7 % (19-41); Mean Corp Hgb Conc 31.2 g/dL (32-36); Mean Corpuscular Hgb 28.3 pg (27.0-32.0); Mean Corpuscular Volume 90.6 fL (80-94); Mean Platelet Vol. 9.8 fl (6.2-12.0); Monocyte# 0.56 X10^3/uL; Monocyte% 13.5 % (0-10); NRBC Flagged by Analyzer 0 % (0-5); Neutrophil # 1.76 X10^3/uL (2.7-7.7); Neutrophil % 42.4 % (47-70); Platelet Count 146 K/mm3 (150-450); RBC Distribution Width CV 14.6 % (11.6-14.6); RBC Distribution Width SD 49.1 fl (35.1-43.9); Red Blood Count 4.46 M/mm3 (4.6-6.2); White Blood Count 4.2 K/mm3 (4.4-11.0)
== END 2020-06-17 18:00 | disposition home or self-care (01) ==
LOC: LAB 09:22
PROVIDERS: Family Provider Family Medicine; PCP Family Medicine; Referring Provider Psychiatry & Neurology Child & Adolescent Psychiatry; Visit Provider Psychiatry & Neurology Child & Adolescent Psychiatry
DX: Z79.899 Other long term (current) drug therapy (principal)
CPT/HCPCS: 36415; 80053; 80164; 85025

== ENCOUNTER 2020-07-13 10:40 | Outpatient (RCR) | payer MEDICAID, SELFPAY ==
[2018-09-18 07:24] VITALS: BMI 27.1
[2020-06-20 11:01] LABS: Absolute Lymphocyte Count 2.36 X10^3/uL (0.83-4.51); Absolute Neutrophil Count 2.9 X10^3/uL (2.0-7.7); Basophil# 0.03 X10^3/uL; Basophil% 0.5 % (0-1); Eosinophil# 0.13 X10^3/uL; Eosinophils% 2.2 % (0-5); Hematocrit 42.7 % (40-54); Hemoglobin 13.3 g/dL (13.0-16.5); Lymphocyte # 2.36 X10^3/ul (0.83-4.51); Lymphocyte % 39.1 % (19-41); Mean Corp Hgb Conc 31.1 g/dL (32-36); Mean Corpuscular Hgb 28.5 pg (27.0-32.0); Mean Corpuscular Volume 91.6 fL (80-94); Mean Platelet Vol. 9.6 fl (6.2-12.0); Monocyte# 0.62 X10^3/uL; Monocyte% 10.3 % (0-10); NRBC Flagged by Analyzer 0 % (0-5); Neutrophil # 2.88 X10^3/uL (2.7-7.7); Neutrophil % 47.7 % (47-70); Platelet Count 144 K/mm3 (150-450); RBC Distribution Width CV 14.6 % (11.6-14.6); RBC Distribution Width SD 49.7 fl (35.1-43.9); Red Blood Count 4.66 M/mm3 (4.6-6.2)
[2020-06-22 11:45] LABS: Absolute Lymphocyte Count 2.05 X10^3/uL (0.83-4.51); Absolute Neutrophil Count 2.4 X10^3/uL (2.0-7.7); Basophil# 0.01 X10^3/uL; Basophil% 0.2 % (0-1); Eosinophils% 1.9 % (0-5); Hematocrit 43.2 % (40-54); Hemoglobin 13.5 g/dL (13.0-16.5); Lymphocyte # 2.05 X10^3/ul (0.83-4.51); Lymphocyte % 39.7 % (19-41); Mean Corp Hgb Conc 31.3 g/dL (32-36); Mean Corpuscular Hgb 28.8 pg (27.0-32.0); Mean Corpuscular Volume 92.1 fL (80-94); Mean Platelet Vol. 9.9 fl (6.2-12.0); Monocyte# 0.58 X10^3/uL; Monocyte% 11.2 % (0-10); NRBC Flagged by Analyzer 0 % (0-5); Neutrophil # 2.39 X10^3/uL (2.7-7.7); Neutrophil % 46.4 % (47-70); Platelet Count 139 K/mm3 (150-450); RBC Distribution Width CV 14.5 % (11.6-14.6); RBC Distribution Width SD 49.2 fl (35.1-43.9); Red Blood Count 4.69 M/mm3 (4.6-6.2); White Blood Count 5.2 K/mm3 (4.4-11.0)
[2020-06-24 10:19] LABS: Absolute Lymphocyte Count 1.74 X10^3/uL (0.83-4.51); Absolute Neutrophil Count 1.8 X10^3/uL (2.0-7.7); Basophil# 0.02 X10^3/uL; Basophil% 0.5 % (0-1); Eosinophil# 0.08 X10^3/uL; Hematocrit 42.9 % (40-54); Hemoglobin 13.5 g/dL (13.0-16.5); Lymphocyte # 1.74 X10^3/ul (0.83-4.51); Lymphocyte % 42.5 % (19-41); Mean Corp Hgb Conc 31.5 g/dL (32-36); Mean Corpuscular Hgb 28.8 pg (27.0-32.0); Mean Corpuscular Volume 91.7 fL (80-94); Mean Platelet Vol. 9.8 fl (6.2-12.0); Monocyte# 0.47 X10^3/uL; Monocyte% 11.5 % (0-10); NRBC Flagged by Analyzer 0 % (0-5); Neutrophil # 1.77 X10^3/uL (2.7-7.7); Neutrophil % 43.3 % (47-70); Platelet Count 128 K/mm3 (150-450); RBC Distribution Width CV 14.6 % (11.6-14.6); RBC Distribution Width SD 49.1 fl (35.1-43.9); Red Blood Count 4.68 M/mm3 (4.6-6.2); White Blood Count 4.1 K/mm3 (4.4-11.0)
[2020-06-27 10:40] LABS: Absolute Lymphocyte Count 1.84 X10^3/uL (0.83-4.51); Absolute Neutrophil Count 1.9 X10^3/uL (2.0-7.7); Basophil# 0.01 X10^3/uL; Basophil% 0.2 % (0-1); Eosinophil# 0.11 X10^3/uL; Eosinophils% 2.5 % (0-5); Hematocrit 42.6 % (40-54); Hemoglobin 13.4 g/dL (13.0-16.5); Lymphocyte # 1.84 X10^3/ul (0.83-4.51); Lymphocyte % 41.8 % (19-41); Mean Corp Hgb Conc 31.5 g/dL (32-36); Mean Corpuscular Hgb 28.9 pg (27.0-32.0); Mean Platelet Vol. 9.8 fl (6.2-12.0); Monocyte# 0.48 X10^3/uL; Monocyte% 10.9 % (0-10); NRBC Flagged by Analyzer 0 % (0-5); Neutrophil # 1.94 X10^3/uL (2.7-7.7); Neutrophil % 44.1 % (47-70); Platelet Count 126 K/mm3 (150-450); RBC Distribution Width CV 14.5 % (11.6-14.6); RBC Distribution Width SD 48.9 fl (35.1-43.9); Red Blood Count 4.63 M/mm3 (4.6-6.2); White Blood Count 4.4 K/mm3 (4.4-11.0)
[2020-06-29 11:18] LABS: Absolute Lymphocyte Count 1.67 X10^3/uL (0.83-4.51); Basophil# 0.02 X10^3/uL; Basophil% 0.5 % (0-1); Eosinophil# 0.09 X10^3/uL; Eosinophils% 2.1 % (0-5); Hematocrit 43.2 % (40-54); Hemoglobin 13.4 g/dL (13.0-16.5); Lymphocyte # 1.67 X10^3/ul (0.83-4.51); Lymphocyte % 39.7 % (19-41); Mean Corpuscular Hgb 28.2 pg (27.0-32.0); Mean Corpuscular Volume 90.8 fL (80-94); Mean Platelet Vol. 9.8 fl (6.2-12.0); Monocyte# 0.44 X10^3/uL; Monocyte% 10.5 % (0-10); NRBC Flagged by Analyzer 0 % (0-5); Neutrophil # 1.98 X10^3/uL (2.7-7.7); Platelet Count 127 K/mm3 (150-450); RBC Distribution Width CV 14.4 % (11.6-14.6); RBC Distribution Width SD 48.5 fl (35.1-43.9); Red Blood Count 4.76 M/mm3 (4.6-6.2); White Blood Count 4.2 K/mm3 (4.4-11.0)
[2020-07-01 11:15] LABS: Absolute Lymphocyte Count 1.83 X10^3/uL (0.83-4.51); Absolute Neutrophil Count 3.3 X10^3/uL (2.0-7.7); Basophil# 0.01 X10^3/uL; Basophil% 0.2 % (0-1); Eosinophils% 1.6 % (0-5); Hematocrit 43.3 % (40-54); Hemoglobin 13.3 g/dL (13.0-16.5); Lymphocyte # 1.83 X10^3/ul (0.83-4.51); Mean Corp Hgb Conc 30.7 g/dL (32-36); Mean Corpuscular Hgb 27.9 pg (27.0-32.0); Mean Corpuscular Volume 90.8 fL (80-94); Mean Platelet Vol. 10.1 fl (6.2-12.0); Monocyte# 0.83 X10^3/uL; Monocyte% 13.6 % (0-10); NRBC Flagged by Analyzer 0 % (0-5); Neutrophil # 3.32 X10^3/uL (2.7-7.7); Neutrophil % 54.3 % (47-70); Platelet Count 138 K/mm3 (150-450); RBC Distribution Width CV 14.5 % (11.6-14.6); RBC Distribution Width SD 48.8 fl (35.1-43.9); Red Blood Count 4.77 M/mm3 (4.6-6.2); White Blood Count 6.1 K/mm3 (4.4-11.0)
[2020-07-06 11:48] LABS: Absolute Lymphocyte Count 2.31 X10^3/uL (0.83-4.51); Absolute Neutrophil Count 2.4 X10^3/uL (2.0-7.7); Basophil# 0.02 X10^3/uL; Basophil% 0.4 % (0-1); Eosinophil# 0.11 X10^3/uL; Lymphocyte # 2.31 X10^3/ul (0.83-4.51); Lymphocyte % 41.3 % (19-41); Mean Corp Hgb Conc 31.7 g/dL (32-36); Mean Corpuscular Hgb 28.9 pg (27.0-32.0); Mean Corpuscular Volume 91.1 fL (80-94); Mean Platelet Vol. 10.1 fl (6.2-12.0); Monocyte# 0.75 X10^3/uL; Monocyte% 13.4 % (0-10); NRBC Flagged by Analyzer 0 % (0-5); Neutrophil # 2.39 X10^3/uL (2.7-7.7); Neutrophil % 42.7 % (47-70); Platelet Count 134 K/mm3 (150-450); RBC Distribution Width CV 14.4 % (11.6-14.6); RBC Distribution Width SD 48.1 fl (35.1-43.9); White Blood Count 5.6 K/mm3 (4.4-11.0)
[2020-07-07 10:46] LABS: Absolute Lymphocyte Count 1.56 X10^3/uL (0.83-4.51); Absolute Neutrophil Count 2.1 X10^3/uL (2.0-7.7); Basophil# 0.02 X10^3/uL; Basophil% 0.5 % (0-1); Eosinophils% 2.3 % (0-5); Hematocrit 40.4 % (40-54); Hemoglobin 13.3 g/dL (13.0-16.5); Lymphocyte # 1.56 X10^3/ul (0.83-4.51); Mean Corp Hgb Conc 32.9 g/dL (32-36); Mean Corpuscular Hgb 29.4 pg (27.0-32.0); Mean Corpuscular Volume 89.2 fL (80-94); Mean Platelet Vol. 9.8 fl (6.2-12.0); Monocyte# 0.55 X10^3/uL; Monocyte% 12.7 % (0-10); NRBC Flagged by Analyzer 0 % (0-5); Neutrophil # 2.09 X10^3/uL (2.7-7.7); Neutrophil % 48.3 % (47-70); Platelet Count 141 K/mm3 (150-450); RBC Distribution Width CV 14.5 % (11.6-14.6); RBC Distribution Width SD 46.9 fl (35.1-43.9); Red Blood Count 4.53 M/mm3 (4.6-6.2); White Blood Count 4.3 K/mm3 (4.4-11.0)
[2020-07-08 10:39] LABS: Absolute Lymphocyte Count 1.73 X10^3/uL (0.83-4.51); Absolute Neutrophil Count 2.7 X10^3/uL (2.0-7.7); Basophil# 0.02 X10^3/uL; Basophil% 0.4 % (0-1); Eosinophils% 1.9 % (0-5); Hematocrit 41.9 % (40-54); Hemoglobin 13.5 g/dL (13.0-16.5); Lymphocyte # 1.73 X10^3/ul (0.83-4.51); Lymphocyte % 33.6 % (19-41); Mean Corp Hgb Conc 32.2 g/dL (32-36); Mean Corpuscular Volume 90.1 fL (80-94); Mean Platelet Vol. 9.9 fl (6.2-12.0); Monocyte# 0.59 X10^3/uL; Monocyte% 11.5 % (0-10); NRBC Flagged by Analyzer 0 % (0-5); Neutrophil % 52.4 % (47-70); Platelet Count 143 K/mm3 (150-450); RBC Distribution Width CV 14.6 % (11.6-14.6); RBC Distribution Width SD 47.7 fl (35.1-43.9); Red Blood Count 4.65 M/mm3 (4.6-6.2); White Blood Count 5.2 K/mm3 (4.4-11.0)
[2020-07-08 10:58] LABS: Valproic Acid (Depakene) Level 92 ug/mL (50-100)
[2020-07-08 11:13] LABS: ALB/GLOB Ratio 0.7 RATIO (0.9-2.4); AST(SGOT) 8 U/L (15-37); Alanine Aminotransfer ALT/SGPT 11 U/L (16-61); Albumin, Serum 3.4 g/dL (3.2-5.0); Alkaline Phosphatase 48 U/L (45-117); Anion Gap 4 (5-15); BUN 17 mg/dL (7-18); BUN/Creat Ratio 20.4 RATIO (10-20); Calcium,Total 9.6 mg/dL (8.5-10.1); Chloride 107 mmol/L (98-107); Creatinine, Serum 0.84 mg/dL (0.70-1.30); EST Glomerular Filtration Rate 109 mL/min (>60); Est Glom Filt Rate - Afr Amer 132 mL/min (>60); Globulin 4.6 g/dL (2.2-4.2); Glucose 82 mg/dL (74-106); Potassium 4.2 mmol/L (3.5-5.1); Sodium Level 141 mmol/L (136-145)
[2020-07-11 10:09] LABS: Absolute Lymphocyte Count 2.52 X10^3/uL (0.83-4.51); Absolute Neutrophil Count 2.7 X10^3/uL (2.0-7.7); Basophil# 0.03 X10^3/uL; Basophil% 0.5 % (0-1); Eosinophil# 0.16 X10^3/uL; Eosinophils% 2.7 % (0-5); Hematocrit 40.5 % (40-54); Hemoglobin 12.7 g/dL (13.0-16.5); Lymphocyte # 2.52 X10^3/ul (0.83-4.51); Lymphocyte % 41.9 % (19-41); Mean Corp Hgb Conc 31.4 g/dL (32-36); Mean Corpuscular Hgb 28.6 pg (27.0-32.0); Mean Corpuscular Volume 91.2 fL (80-94); Mean Platelet Vol. 9.7 fl (6.2-12.0); Monocyte# 0.63 X10^3/uL; Monocyte% 10.5 % (0-10); NRBC Flagged by Analyzer 0 % (0-5); Neutrophil # 2.65 X10^3/uL (2.7-7.7); Neutrophil % 44.1 % (47-70); Platelet Count 155 K/mm3 (150-450); RBC Distribution Width CV 14.5 % (11.6-14.6); RBC Distribution Width SD 48.4 fl (35.1-43.9); Red Blood Count 4.44 M/mm3 (4.6-6.2)
[2020-07-13 11:52] LABS: Absolute Lymphocyte Count 2.06 X10^3/uL (0.83-4.51); Absolute Neutrophil Count 2.7 X10^3/uL (2.0-7.7); Basophil# 0.03 X10^3/uL; Basophil% 0.6 % (0-1); Eosinophil# 0.09 X10^3/uL; Eosinophils% 1.7 % (0-5); Hematocrit 40.7 % (40-54); Hemoglobin 13.1 g/dL (13.0-16.5); Lymphocyte # 2.06 X10^3/ul (0.83-4.51); Mean Corp Hgb Conc 32.2 g/dL (32-36); Mean Corpuscular Volume 90.2 fL (80-94); Mean Platelet Vol. 9.8 fl (6.2-12.0); Monocyte# 0.55 X10^3/uL; Monocyte% 10.1 % (0-10); NRBC Flagged by Analyzer 0 % (0-5); Neutrophil # 2.67 X10^3/uL (2.7-7.7); Neutrophil % 49.2 % (47-70); Platelet Count 171 K/mm3 (150-450); RBC Distribution Width CV 14.5 % (11.6-14.6); RBC Distribution Width SD 47.8 fl (35.1-43.9); Red Blood Count 4.51 M/mm3 (4.6-6.2); White Blood Count 5.4 K/mm3 (4.4-11.0)
== END 2020-07-13 18:00 | disposition home or self-care (01) ==
LOC: LAB 10:40
PROVIDERS: Family Provider Family Medicine; PCP Family Medicine; Referring Provider Psychiatry & Neurology Child & Adolescent Psychiatry; Visit Provider Psychiatry & Neurology Child & Adolescent Psychiatry
DX: Z79.899 Other long term (current) drug therapy (principal)
CPT/HCPCS: 36415; 80053; 80164; 85025

== ENCOUNTER 2020-08-15 09:44 | Outpatient (RCR) | payer MEDICAID, SELFPAY ==
[2018-09-18 07:24] VITALS: BMI 27.1
[2020-07-19 10:45] LABS: Absolute Lymphocyte Count 2.01 X10^3/uL (0.83-4.51); Basophil# 0.03 X10^3/uL; Basophil% 0.7 % (0-1); Eosinophil# 0.11 X10^3/uL; Eosinophils% 2.4 % (0-5); Hematocrit 41.1 % (40-54); Lymphocyte # 2.01 X10^3/ul (0.83-4.51); Lymphocyte % 43.7 % (19-41); Mean Corp Hgb Conc 31.6 g/dL (32-36); Mean Corpuscular Hgb 29.1 pg (27.0-32.0); Mean Corpuscular Volume 91.9 fL (80-94); Mean Platelet Vol. 9.9 fl (6.2-12.0); Monocyte# 0.44 X10^3/uL; Monocyte% 9.6 % (0-10); NRBC Flagged by Analyzer 0 % (0-5); Neutrophil # 1.98 X10^3/uL (2.7-7.7); Neutrophil % 42.9 % (47-70); Platelet Count 152 K/mm3 (150-450); RBC Distribution Width CV 14.7 % (11.6-14.6); RBC Distribution Width SD 50.1 fl (35.1-43.9); Red Blood Count 4.47 M/mm3 (4.6-6.2); White Blood Count 4.6 K/mm3 (4.4-11.0)
[2020-07-25 11:02] LABS: Absolute Lymphocyte Count 2.02 X10^3/uL (0.83-4.51); Absolute Neutrophil Count 3.3 X10^3/uL (2.0-7.7); Basophil# 0.02 X10^3/uL; Basophil% 0.3 % (0-1); Eosinophils% 1.6 % (0-5); Hematocrit 41.4 % (40-54); Hemoglobin 13.2 g/dL (13.0-16.5); Lymphocyte # 2.02 X10^3/ul (0.83-4.51); Mean Corp Hgb Conc 31.9 g/dL (32-36); Mean Corpuscular Hgb 28.8 pg (27.0-32.0); Mean Corpuscular Volume 90.2 fL (80-94); Mean Platelet Vol. 9.9 fl (6.2-12.0); Monocyte# 0.67 X10^3/uL; Monocyte% 10.9 % (0-10); NRBC Flagged by Analyzer 0 % (0-5); Neutrophil % 53.9 % (47-70); Platelet Count 136 K/mm3 (150-450); RBC Distribution Width CV 14.5 % (11.6-14.6); RBC Distribution Width SD 48.2 fl (35.1-43.9); Red Blood Count 4.59 M/mm3 (4.6-6.2); White Blood Count 6.1 K/mm3 (4.4-11.0)
[2020-08-01 10:12] LABS: Absolute Lymphocyte Count 2.13 X10^3/uL (0.83-4.51); Absolute Neutrophil Count 1.8 X10^3/uL (2.0-7.7); Basophil# 0.02 X10^3/uL; Basophil% 0.4 % (0-1); Eosinophil# 0.15 X10^3/uL; Eosinophils% 3.2 % (0-5); Hematocrit 41.6 % (40-54); Hemoglobin 13.3 g/dL (13.0-16.5); Lymphocyte # 2.13 X10^3/ul (0.83-4.51); Lymphocyte % 45.7 % (19-41); Mean Corpuscular Hgb 28.8 pg (27.0-32.0); Mean Platelet Vol. 9.7 fl (6.2-12.0); Monocyte# 0.53 X10^3/uL; Monocyte% 11.4 % (0-10); NRBC Flagged by Analyzer 0 % (0-5); Neutrophil % 38.7 % (47-70); Platelet Count 143 K/mm3 (150-450); RBC Distribution Width CV 14.4 % (11.6-14.6); RBC Distribution Width SD 47.2 fl (35.1-43.9); Red Blood Count 4.62 M/mm3 (4.6-6.2); White Blood Count 4.7 K/mm3 (4.4-11.0)
[2020-08-08 12:06] LABS: Absolute Lymphocyte Count 2.14 X10^3/uL (0.83-4.51); Absolute Neutrophil Count 1.8 X10^3/uL (2.0-7.7); Basophil# 0.01 X10^3/uL; Basophil% 0.2 % (0-1); Eosinophil# 0.09 X10^3/uL; Hematocrit 40.2 % (40-54); Hemoglobin 12.7 g/dL (13.0-16.5); Lymphocyte # 2.14 X10^3/ul (0.83-4.51); Lymphocyte % 47.7 % (19-41); Mean Corp Hgb Conc 31.6 g/dL (32-36); Mean Corpuscular Hgb 28.7 pg (27.0-32.0); Mean Platelet Vol. 10.3 fl (6.2-12.0); Monocyte# 0.47 X10^3/uL; Monocyte% 10.5 % (0-10); NRBC Flagged by Analyzer 0 % (0-5); Neutrophil # 1.77 X10^3/uL (2.7-7.7); Neutrophil % 39.4 % (47-70); Platelet Count 143 K/mm3 (150-450); RBC Distribution Width CV 14.6 % (11.6-14.6); RBC Distribution Width SD 48.9 fl (35.1-43.9); Red Blood Count 4.42 M/mm3 (4.6-6.2); White Blood Count 4.5 K/mm3 (4.4-11.0)
[2020-08-15 10:17] LABS: Absolute Lymphocyte Count 0.92 X10^3/uL (0.83-4.51); Absolute Neutrophil Count 2.7 X10^3/uL (2.0-7.7); Basophil# 0.01 X10^3/uL; Basophil% 0.2 % (0-1); Eosinophil# 0.05 X10^3/uL; Eosinophils% 1.2 % (0-5); Hematocrit 42.6 % (40-54); Hemoglobin 13.7 g/dL (13.0-16.5); Lymphocyte # 0.92 X10^3/ul (0.83-4.51); Lymphocyte % 21.7 % (19-41); Mean Corp Hgb Conc 32.2 g/dL (32-36); Mean Corpuscular Hgb 28.7 pg (27.0-32.0); Mean Corpuscular Volume 89.3 fL (80-94); Mean Platelet Vol. 9.8 fl (6.2-12.0); Monocyte# 0.55 X10^3/uL; NRBC Flagged by Analyzer 0 % (0-5); Neutrophil # 2.69 X10^3/uL (2.7-7.7); Neutrophil % 63.4 % (47-70); Platelet Count 132 K/mm3 (150-450); RBC Distribution Width CV 14.3 % (11.6-14.6); RBC Distribution Width SD 47.4 fl (35.1-43.9); Red Blood Count 4.77 M/mm3 (4.6-6.2); White Blood Count 4.2 K/mm3 (4.4-11.0)
[2020-08-15 11:20] LABS: Valproic Acid (Depakene) Level 95 ug/mL (50-100)
[2020-08-15 11:29] LABS: ALB/GLOB Ratio 0.8 RATIO (0.9-2.4); AST(SGOT) 17 U/L (15-37); Alanine Aminotransfer ALT/SGPT 16 U/L (16-61); Albumin, Serum 3.5 g/dL (3.2-5.0); Alkaline Phosphatase 47 U/L (45-117); Anion Gap 8 (5-15); BUN 15 mg/dL (7-18); BUN/Creat Ratio 16.9 RATIO (10-20); Calcium,Total 9.4 mg/dL (8.5-10.1); Chloride 104 mmol/L (98-107); Creatinine, Serum 0.89 mg/dL (0.70-1.30); EST Glomerular Filtration Rate 102 mL/min (>60); Est Glom Filt Rate - Afr Amer 123 mL/min (>60); Globulin 4.4 g/dL (2.2-4.2); Glucose 95 mg/dL (74-106); Potassium 4.3 mmol/L (3.5-5.1); Protein, Total 7.9 g/dL (6.4-8.2); Sodium Level 138 mmol/L (136-145)
== END 2020-08-15 18:00 | disposition home or self-care (01) ==
LOC: LAB 09:44
PROVIDERS: Family Provider Family Medicine; PCP Family Medicine; Referring Provider Psychiatry & Neurology Child & Adolescent Psychiatry; Visit Provider Psychiatry & Neurology Child & Adolescent Psychiatry
DX: Z79.899 Other long term (current) drug therapy (principal)
CPT/HCPCS: 36415; 80053; 80164; 85025

== ENCOUNTER 2020-09-15 09:50 | Outpatient (RCR) | payer MEDICAID, SELFPAY ==
[2018-09-18 07:24] VITALS: BMI 27.1
[2020-08-23 11:43] LABS: Absolute Lymphocyte Count 1.57 X10^3/uL (0.83-4.51); Absolute Neutrophil Count 2.9 X10^3/uL (2.0-7.7); Basophil# 0.01 X10^3/uL; Basophil% 0.2 % (0-1); Eosinophil# 0.04 X10^3/uL; Eosinophils% 0.8 % (0-5); Hematocrit 41.1 % (40-54); Hemoglobin 13.4 g/dL (13.0-16.5); Lymphocyte # 1.57 X10^3/ul (0.83-4.51); Lymphocyte % 29.7 % (19-41); Mean Corp Hgb Conc 32.6 g/dL (32-36); Mean Corpuscular Hgb 29.1 pg (27.0-32.0); Mean Corpuscular Volume 89.3 fL (80-94); Mean Platelet Vol. 10.1 fl (6.2-12.0); Monocyte# 0.71 X10^3/uL; Monocyte% 13.4 % (0-10); NRBC Flagged by Analyzer 0 % (0-5); Neutrophil # 2.93 X10^3/uL (2.7-7.7); Neutrophil % 55.5 % (47-70); Platelet Count 143 K/mm3 (150-450); RBC Distribution Width CV 14.4 % (11.6-14.6); RBC Distribution Width SD 47.1 fl (35.1-43.9); White Blood Count 5.3 K/mm3 (4.4-11.0)
[2020-08-23 12:05] LABS: Valproic Acid (Depakene) Level 101 ug/mL (50-100)
[2020-08-23 12:10] LABS: ALB/GLOB Ratio 0.7 RATIO (0.9-2.4); AST(SGOT) 8 U/L (15-37); Alanine Aminotransfer ALT/SGPT 11 U/L (16-61); Albumin, Serum 3.3 g/dL (3.2-5.0); Alkaline Phosphatase 49 U/L (45-117); Anion Gap 7 (5-15); BUN 14 mg/dL (7-18); BUN/Creat Ratio 14.8 RATIO (10-20); Calcium,Total 9.5 mg/dL (8.5-10.1); Chloride 104 mmol/L (98-107); Creatinine, Serum 0.94 mg/dL (0.70-1.30); EST Glomerular Filtration Rate 94 mL/min (>60); Est Glom Filt Rate - Afr Amer 114 mL/min (>60); Globulin 4.5 g/dL (2.2-4.2); Glucose 78 mg/dL (74-106); Potassium 4.4 mmol/L (3.5-5.1); Protein, Total 7.8 g/dL (6.4-8.2); Sodium Level 138 mmol/L (136-145)
[2020-08-29 10:53] LABS: Absolute Lymphocyte Count 1.93 X10^3/uL (0.83-4.51); Absolute Neutrophil Count 3.8 X10^3/uL (2.0-7.7); Basophil# 0.02 X10^3/uL; Basophil% 0.3 % (0-1); Eosinophil# 0.07 X10^3/uL; Lymphocyte # 1.93 X10^3/ul (0.83-4.51); Lymphocyte % 28.8 % (19-41); Mean Corp Hgb Conc 31.8 g/dL (32-36); Mean Corpuscular Hgb 28.6 pg (27.0-32.0); Mean Platelet Vol. 9.5 fl (6.2-12.0); Monocyte# 0.85 X10^3/uL; Monocyte% 12.7 % (0-10); NRBC Flagged by Analyzer 0 % (0-5); Neutrophil # 3.76 X10^3/uL (2.7-7.7); Neutrophil % 56.3 % (47-70); Platelet Count 180 K/mm3 (150-450); RBC Distribution Width CV 14.6 % (11.6-14.6); RBC Distribution Width SD 48.5 fl (35.1-43.9); Red Blood Count 4.89 M/mm3 (4.6-6.2); White Blood Count 6.7 K/mm3 (4.4-11.0)
[2020-09-05 10:42] LABS: Absolute Neutrophil Count 3.4 X10^3/uL (2.0-7.7); Basophil# 0.02 X10^3/uL; Basophil% 0.3 % (0-1); Eosinophil# 0.06 X10^3/uL; Hematocrit 43.2 % (40-54); Hemoglobin 13.8 g/dL (13.0-16.5); Lymphocyte % 30.7 % (19-41); Mean Corp Hgb Conc 31.9 g/dL (32-36); Mean Corpuscular Hgb 29.1 pg (27.0-32.0); Mean Corpuscular Volume 90.9 fL (80-94); Mean Platelet Vol. 10.6 fl (6.2-12.0); Monocyte% 10.2 % (0-10); NRBC Flagged by Analyzer 0 % (0-5); Neutrophil # 3.36 X10^3/uL (2.7-7.7); Neutrophil % 57.3 % (47-70); Platelet Count 114 K/mm3 (150-450); RBC Distribution Width SD 47.3 fl (35.1-43.9); Red Blood Count 4.75 M/mm3 (4.6-6.2); White Blood Count 5.9 K/mm3 (4.4-11.0)
[2020-09-15 11:08] LABS: Color, Urine Yellow (Yellow); Glucose, Dipstick Normal (Normal); Ketone-Dipstick Negative (Negative); Leukocyte Esterase-Dipstick Negative /ul (Negative); Nitrite-Dipstick Negative (Negative); Occult Blood-Urine Negative /ul (Negative); Protein-Dipstick Negative (Negative); Specific Gravity, Urine 1.015 (1.002-1.030); Urine Bilirubin Dipstick Negative (Negative); Urine Clarity Cloudy (Clear); Urine Urobilinogen Normal (Normal)
== END 2020-09-15 18:00 | disposition home or self-care (01) ==
LOC: LAB 09:50
PROVIDERS: Family Provider Family Medicine; PCP Family Medicine; Referring Provider Psychiatry & Neurology Child & Adolescent Psychiatry; Visit Provider Psychiatry & Neurology Child & Adolescent Psychiatry
DX: Z79.899 Other long term (current) drug therapy (principal)
CPT/HCPCS: 36415; 80053; 80164; 81002; 85025; 87086; 87088

== ENCOUNTER 2020-10-17 09:55 | Outpatient (RCR) | payer MEDICAID, SELFPAY ==
[2018-09-18 07:24] VITALS: BMI 27.1
[2020-09-21 11:28] LABS: Absolute Lymphocyte Count 2.02 X10^3/uL (0.83-4.51); Absolute Neutrophil Count 2.5 X10^3/uL (2.0-7.7); Basophil# 0.02 X10^3/uL; Basophil% 0.4 % (0-1); Eosinophil# 0.09 X10^3/uL; Eosinophils% 1.7 % (0-5); Hematocrit 42.9 % (40-54); Hemoglobin 13.8 g/dL (13.0-16.5); Lymphocyte # 2.02 X10^3/ul (0.83-4.51); Lymphocyte % 38.5 % (19-41); Mean Corp Hgb Conc 32.2 g/dL (32-36); Mean Corpuscular Hgb 29.1 pg (27.0-32.0); Mean Corpuscular Volume 90.5 fL (80-94); Mean Platelet Vol. 10.1 fl (6.2-12.0); Monocyte# 0.57 X10^3/uL; Monocyte% 10.9 % (0-10); NRBC Flagged by Analyzer 0 % (0-5); Neutrophil # 2.53 X10^3/uL (2.7-7.7); Neutrophil % 48.1 % (47-70); Platelet Count 132 K/mm3 (150-450); RBC Distribution Width CV 14.2 % (11.6-14.6); RBC Distribution Width SD 47.4 fl (35.1-43.9); Red Blood Count 4.74 M/mm3 (4.6-6.2); White Blood Count 5.3 K/mm3 (4.4-11.0)
[2020-09-28 09:58] LABS: Absolute Lymphocyte Count 1.38 X10^3/uL (0.83-4.51); Absolute Neutrophil Count 2.9 X10^3/uL (2.0-7.7); Basophil# 0.02 X10^3/uL; Basophil% 0.4 % (0-1); Eosinophil# 0.06 X10^3/uL; Eosinophils% 1.2 % (0-5); Hemoglobin 13.3 g/dL (13.0-16.5); Lymphocyte # 1.38 X10^3/ul (0.83-4.51); Lymphocyte % 28.3 % (19-41); Mean Corp Hgb Conc 31.7 g/dL (32-36); Mean Corpuscular Hgb 28.6 pg (27.0-32.0); Mean Corpuscular Volume 90.3 fL (80-94); Mean Platelet Vol. 9.8 fl (6.2-12.0); Monocyte# 0.54 X10^3/uL; Monocyte% 11.1 % (0-10); NRBC Flagged by Analyzer 0 % (0-5); Neutrophil # 2.85 X10^3/uL (2.7-7.7); Neutrophil % 58.6 % (47-70); Platelet Count 130 K/mm3 (150-450); RBC Distribution Width CV 14.3 % (11.6-14.6); RBC Distribution Width SD 47.8 fl (35.1-43.9); Red Blood Count 4.65 M/mm3 (4.6-6.2); White Blood Count 4.9 K/mm3 (4.4-11.0)
[2020-10-03 12:29] LABS: Absolute Lymphocyte Count 1.55 X10^3/uL (0.83-4.51); Absolute Neutrophil Count 2.9 X10^3/uL (2.0-7.7); Basophil# 0.01 X10^3/uL; Basophil% 0.2 % (0-1); Eosinophil# 0.06 X10^3/uL; Eosinophils% 1.1 % (0-5); Hemoglobin 13.4 g/dL (13.0-16.5); Lymphocyte # 1.55 X10^3/ul (0.83-4.51); Lymphocyte % 29.6 % (19-41); Mean Corp Hgb Conc 31.9 g/dL (32-36); Mean Corpuscular Hgb 28.7 pg (27.0-32.0); Mean Corpuscular Volume 89.9 fL (80-94); Mean Platelet Vol. 10.4 fl (6.2-12.0); Monocyte# 0.67 X10^3/uL; Monocyte% 12.8 % (0-10); NRBC Flagged by Analyzer 0 % (0-5); Neutrophil # 2.92 X10^3/uL (2.7-7.7); Neutrophil % 55.9 % (47-70); Platelet Count 113 K/mm3 (150-450); RBC Distribution Width CV 14.4 % (11.6-14.6); RBC Distribution Width SD 47.6 fl (35.1-43.9); Red Blood Count 4.67 M/mm3 (4.6-6.2); White Blood Count 5.2 K/mm3 (4.4-11.0)
[2020-10-03 13:07] LABS: ALB/GLOB Ratio 0.7 RATIO (0.9-2.4); AST(SGOT) 9 U/L (15-37); Alanine Aminotransfer ALT/SGPT 12 U/L (16-61); Albumin, Serum 3.3 g/dL (3.2-5.0); Alkaline Phosphatase 46 U/L (45-117); Anion Gap 3 (5-15); BUN 16 mg/dL (7-18); BUN/Creat Ratio 19.6 RATIO (10-20); Calcium,Total 9.7 mg/dL (8.5-10.1); Chloride 107 mmol/L (98-107); Creatinine, Serum 0.82 mg/dL (0.70-1.30); EST Glomerular Filtration Rate 112 mL/min (>60); Est Glom Filt Rate - Afr Amer 135 mL/min (>60); Glucose 69 mg/dL (74-106); Potassium 4.4 mmol/L (3.5-5.1); Protein, Total 8.3 g/dL (6.4-8.2); Sodium Level 139 mmol/L (136-145)
[2020-10-03 13:08] LABS: Valproic Acid (Depakene) Level 102 ug/mL (50-100)
[2020-10-10 10:42] LABS: Absolute Lymphocyte Count 1.92 X10^3/uL (0.83-4.51); Absolute Neutrophil Count 2.9 X10^3/uL (2.0-7.7); Basophil# 0.01 X10^3/uL; Basophil% 0.2 % (0-1); Eosinophil# 0.08 X10^3/uL; Eosinophils% 1.4 % (0-5); Hematocrit 42.2 % (40-54); Hemoglobin 13.4 g/dL (13.0-16.5); Lymphocyte # 1.92 X10^3/ul (0.83-4.51); Lymphocyte % 34.7 % (19-41); Mean Corp Hgb Conc 31.8 g/dL (32-36); Mean Corpuscular Hgb 28.8 pg (27.0-32.0); Mean Corpuscular Volume 90.8 fL (80-94); Mean Platelet Vol. 10.1 fl (6.2-12.0); Monocyte# 0.59 X10^3/uL; Monocyte% 10.6 % (0-10); NRBC Flagged by Analyzer 0 % (0-5); Neutrophil # 2.92 X10^3/uL (2.7-7.7); Neutrophil % 52.7 % (47-70); Platelet Count 120 K/mm3 (150-450); RBC Distribution Width CV 14.7 % (11.6-14.6); RBC Distribution Width SD 48.8 fl (35.1-43.9); Red Blood Count 4.65 M/mm3 (4.6-6.2); White Blood Count 5.5 K/mm3 (4.4-11.0)
[2020-10-17 10:23] LABS: Absolute Lymphocyte Count 1.34 X10^3/uL (0.83-4.51); Absolute Neutrophil Count 2.6 X10^3/uL (2.0-7.7); Basophil# 0.01 X10^3/uL; Basophil% 0.2 % (0-1); Eosinophil# 0.07 X10^3/uL; Eosinophils% 1.4 % (0-5); Hematocrit 43.2 % (40-54); Hemoglobin 13.5 g/dL (13.0-16.5); Lymphocyte # 1.34 X10^3/ul (0.83-4.51); Lymphocyte % 27.7 % (19-41); Mean Corp Hgb Conc 31.3 g/dL (32-36); Mean Corpuscular Hgb 28.3 pg (27.0-32.0); Mean Corpuscular Volume 90.6 fL (80-94); Mean Platelet Vol. 9.8 fl (6.2-12.0); Monocyte# 0.77 X10^3/uL; Monocyte% 15.9 % (0-10); NRBC Flagged by Analyzer 0 % (0-5); Neutrophil # 2.61 X10^3/uL (2.7-7.7); Neutrophil % 54.2 % (47-70); Platelet Count 110 K/mm3 (150-450); RBC Distribution Width CV 14.7 % (11.6-14.6); Red Blood Count 4.77 M/mm3 (4.6-6.2); White Blood Count 4.8 K/mm3 (4.4-11.0)
[2020-10-17 10:56] LABS: ALB/GLOB Ratio 0.8 RATIO (0.9-2.4); AST(SGOT) 9 U/L (15-37); Alanine Aminotransfer ALT/SGPT 13 U/L (16-61); Albumin, Serum 3.4 g/dL (3.2-5.0); Alkaline Phosphatase 45 U/L (45-117); Anion Gap 3 (5-15); BUN 16 mg/dL (7-18); Chloride 108 mmol/L (98-107); Creatinine, Serum 0.94 mg/dL (0.70-1.30); EST Glomerular Filtration Rate 95 mL/min (>60); Est Glom Filt Rate - Afr Amer 115 mL/min (>60); Globulin 4.5 g/dL (2.2-4.2); Glucose 87 mg/dL (74-106); Potassium 4.1 mmol/L (3.5-5.1); Protein, Total 7.9 g/dL (6.4-8.2); Sodium Level 143 mmol/L (136-145); Valproic Acid (Depakene) Level 109 ug/mL (50-100)
[2020-11-11 10:06] LABS: Absolute Lymphocyte Count 1.16 X10^3/uL (0.83-4.51); Absolute Neutrophil Count 2.7 X10^3/uL (2.0-7.7); Basophil# 0.02 X10^3/uL; Basophil% 0.4 % (0-1); Eosinophil# 0.11 X10^3/uL; Eosinophils% 2.4 % (0-5); Hematocrit 39.1 % (40-54); Hemoglobin 12.4 g/dL (13.0-16.5); Lymphocyte # 1.16 X10^3/ul (0.83-4.51); Lymphocyte % 24.9 % (19-41); Mean Corp Hgb Conc 31.7 g/dL (32-36); Mean Corpuscular Hgb 29.2 pg (27.0-32.0); Mean Platelet Vol. 10.3 fl (6.2-12.0); Monocyte# 0.64 X10^3/uL; Monocyte% 13.7 % (0-10); NRBC Flagged by Analyzer 0 % (0-5); Neutrophil # 2.72 X10^3/uL (2.7-7.7); Neutrophil % 58.4 % (47-70); Platelet Count 101 K/mm3 (150-450); RBC Distribution Width CV 15.6 % (11.6-14.6); RBC Distribution Width SD 52.4 fl (35.1-43.9); Red Blood Count 4.25 M/mm3 (4.6-6.2); White Blood Count 4.7 K/mm3 (4.4-11.0)
== END 2020-10-17 18:00 | disposition home or self-care (01) ==
LOC: LAB 09:55
PROVIDERS: Family Provider Family Medicine; PCP Family Medicine; Referring Provider Psychiatry & Neurology Child & Adolescent Psychiatry; Visit Provider Psychiatry & Neurology Child & Adolescent Psychiatry
DX: Z79.899 Other long term (current) drug therapy (principal)
CPT/HCPCS: 36415; 80053; 80164; 82140; 85025

== ENCOUNTER 2020-11-14 10:04 | Outpatient (RCR) | payer MEDICAID, SELFPAY ==
[2020-10-18 23:49] VITALS: BMI 27.1
[2020-10-20 09:40] LABS: Color, Urine Yellow (Yellow); Glucose, Dipstick Normal (Normal); Ketone-Dipstick Negative (Negative); Leukocyte Esterase-Dipstick Negative /ul (Negative); Nitrite-Dipstick Negative (Negative); Occult Blood-Urine Negative /ul (Negative); Protein-Dipstick Negative (Negative); Urine Bilirubin Dipstick Negative (Negative); Urine Clarity Clear (Clear); Urine Urobilinogen Normal (Normal)
[2020-10-31 11:13] LABS: Absolute Lymphocyte Count 1.71 X10^3/uL (0.83-4.51); Absolute Neutrophil Count 3.3 X10^3/uL (2.0-7.7); Basophil# 0.03 X10^3/uL; Basophil% 0.5 % (0-1); Eosinophil# 0.11 X10^3/uL; Eosinophils% 1.8 % (0-5); Hematocrit 41.8 % (40-54); Hemoglobin 13.4 g/dL (13.0-16.5); Lymphocyte # 1.71 X10^3/ul (0.83-4.51); Lymphocyte % 28.2 % (19-41); Mean Corp Hgb Conc 32.1 g/dL (32-36); Mean Corpuscular Hgb 29.3 pg (27.0-32.0); Mean Corpuscular Volume 91.3 fL (80-94); Mean Platelet Vol. 10.3 fl (6.2-12.0); Monocyte# 0.87 X10^3/uL; Monocyte% 14.3 % (0-10); NRBC Flagged by Analyzer 0 % (0-5); Neutrophil # 3.32 X10^3/uL (2.7-7.7); Neutrophil % 54.7 % (47-70); Platelet Count 120 K/mm3 (150-450); RBC Distribution Width CV 15.3 % (11.6-14.6); Red Blood Count 4.58 M/mm3 (4.6-6.2); White Blood Count 6.1 K/mm3 (4.4-11.0)
[2020-11-07 12:10] LABS: Absolute Lymphocyte Count 1.93 X10^3/uL (0.83-4.51); Absolute Neutrophil Count 2.1 X10^3/uL (2.0-7.7); Basophil# 0.02 X10^3/uL; Basophil% 0.4 % (0-1); Eosinophil# 0.19 X10^3/uL; Eosinophils% 3.9 % (0-5); Hematocrit 39.6 % (40-54); Hemoglobin 12.8 g/dL (13.0-16.5); Lymphocyte # 1.93 X10^3/ul (0.83-4.51); Mean Corp Hgb Conc 32.3 g/dL (32-36); Mean Corpuscular Hgb 29.4 pg (27.0-32.0); Mean Platelet Vol. 10.2 fl (6.2-12.0); Monocyte# 0.58 X10^3/uL; NRBC Flagged by Analyzer 0 % (0-5); Neutrophil # 2.09 X10^3/uL (2.7-7.7); Neutrophil % 43.3 % (47-70); POSITIVE COUNT YES; Platelet Count 99 K/mm3 (150-450); RBC Distribution Width CV 15.3 % (11.6-14.6); RBC Distribution Width SD 51.2 fl (35.1-43.9); Red Blood Count 4.35 M/mm3 (4.6-6.2); White Blood Count 4.8 K/mm3 (4.4-11.0)
[2020-11-07 12:12] LABS: Differential Indicated SCAN CRITERIA MET
[2020-11-07 12:42] LABS: Differential Comment SCANNED; Platelet Estimate MOD DEC (ADEQ)
[2020-11-14 11:25] LABS: Absolute Lymphocyte Count 1.12 X10^3/uL (0.83-4.51); Absolute Neutrophil Count 2.3 X10^3/uL (2.0-7.7); Basophil# 0.02 X10^3/uL; Basophil% 0.5 % (0-1); Eosinophil# 0.13 X10^3/uL; Hematocrit 38.2 % (40-54); Hemoglobin 12.5 g/dL (13.0-16.5); Lymphocyte # 1.12 X10^3/ul (0.83-4.51); Mean Corp Hgb Conc 32.7 g/dL (32-36); Mean Corpuscular Hgb 29.5 pg (27.0-32.0); Mean Corpuscular Volume 90.1 fL (80-94); Mean Platelet Vol. 10.2 fl (6.2-12.0); Monocyte# 0.72 X10^3/uL; Monocyte% 16.7 % (0-10); NRBC Flagged by Analyzer 0 % (0-5); Neutrophil % 53.3 % (47-70); Platelet Count 101 K/mm3 (150-450); RBC Distribution Width CV 15.5 % (11.6-14.6); RBC Distribution Width SD 51.6 fl (35.1-43.9); Red Blood Count 4.24 M/mm3 (4.6-6.2); White Blood Count 4.3 K/mm3 (4.4-11.0)
[2020-11-14 11:58] LABS: ALB/GLOB Ratio 0.6 RATIO (0.9-2.4); AST(SGOT) 11 U/L (15-37); Alanine Aminotransfer ALT/SGPT 11 U/L (16-61); Albumin, Serum 2.9 g/dL (3.2-5.0); Alkaline Phosphatase 40 U/L (45-117); Anion Gap 7 (5-15); BUN 14 mg/dL (7-18); BUN/Creat Ratio 17.3 RATIO (10-20); Calcium,Total 9.8 mg/dL (8.5-10.1); Chloride 105 mmol/L (98-107); Creatinine, Serum 0.81 mg/dL (0.70-1.30); EST Glomerular Filtration Rate 112 mL/min (>60); Est Glom Filt Rate - Afr Amer 136 mL/min (>60); Globulin 4.5 g/dL (2.2-4.2); Glucose 81 mg/dL (74-106); Potassium 4.5 mmol/L (3.5-5.1); Protein, Total 7.4 g/dL (6.4-8.2); Sodium Level 141 mmol/L (136-145)
[2020-11-14 12:08] LABS: Valproic Acid (Depakene) Level 80 ug/mL (50-100)
== END 2020-11-14 18:00 | disposition home or self-care (01) ==
LOC: LAB 10:04
PROVIDERS: Family Provider Family Medicine; PCP Family Medicine; Referring Provider Psychiatry & Neurology Child & Adolescent Psychiatry; Visit Provider Psychiatry & Neurology Child & Adolescent Psychiatry
DX: Z79.899 Other long term (current) drug therapy (principal)
CPT/HCPCS: 36415; 80053; 80164; 81002; 85025

== ENCOUNTER 2020-11-18 11:46 | Inpatient (IN) | payer MEDICAID, SELFPAY ==
[2020-11-18] VITALS (19 sets, daily range): BP systolic 92–112; BP diastolic 63–78; PULSE 81–98; RESP 16–27; TEMP 36.1–38.1; O2SAT 80–97; BMI 26.9; BMI 26.5
--- NOTE | 2020-11-18 12:15 | EKG12_ITS ---
Test Reason : SOB Blood Pressure : / mmHG Vent. Rate : 084 BPM Atrial Rate : 084 BPM P-R Int : 138 ms QRS Dur : 104 ms QT Int : 372 ms P-R-T Axes : 060 051 062 degrees QTc Int : 439 ms Normal sinus rhythm Nonspecific T wave abnormality Abnormal ECG Confirmed by KERRI MORALES, KRISTEN ([id number]), editor news PA MARTINEZ ([id number]) on 11/21/2020 8:09:25 AM Referred By: ADITYA Confirmed By:KRISTEN MANNING MD
--- NOTE | 2020-11-18 12:15 | RAD_ITS ---
STUDY: X-RAY CHEST REASON FOR EXAM: Male, 40 years old. Hypoxia . Increasing shortness of breath. TECHNIQUE: Single AP portable view of the chest. COMPARISON: Comparison is made with 04/18/2018 FINDINGS: EKG electrodes are seen. Bibasilar infiltrates. Blunting of left costophrenic angle. Normal size heart. Normal mediastinum and maik. Normal visualized pulmonary arteries. Normal visualized aortic arch and descending thoracic aorta. Normal visualized thoracic spine. Normal visualized ribs, clavicles, and shoulders. There is no demonstrated abnormality of the visualized soft tissue structures of the upper abdomen. RAD/Chest 1 View (Portable) IMPRESSION: Bibasilar infiltrates. Blunting of the left costophrenic angle. Electronically Signed: Karthik Armstrong MD at 13:08 EDT , Service support ,
--- NOTE | 2020-11-18 12:16 | ED.VIS.DYS ---
HPI History of Present Illness Chief Complaint: Shortness of Breath Narrative Narrative: 40-year-old male presenting with his father for fever and shortness of breath. Patient's father states that he has the IQ of a 5-year-old and he gives most of the history. Patient's not able to express symptoms to his father but his father noticed that he had a fever on Saturday. He states he checked his temperature on his forehead and it was 105 on Saturday. He states he checked his axillary at the same time and it was 101. Patient is given Tylenol and ibuprofen and his fever seemed to resolve but then returned. His father states that he is not coughing very much. He is generally weak. His father states that he normally is active and is presenting today with more confusion. The patient's father states that he was seen by his primary care physician who felt that he was developing pneumonia and gave him a shot of something in the office and a prescription for medication. His father states that his primary care physician did not have concern for COVID-19 and did not test him for it. [facility] Medical History Bipolar 1 disorder Home Medications Clonazepam 0.5 mg PO BID 04/18/18 [History Last Taken Unknown] benztropine 1 mg PO BID 04/18/18 [History Last Taken Unknown] buspirone 15 mg PO TID 04/18/18 [History Last Taken Unknown] clozapine 50 mg PO DAILY 04/18/18 [History Last Taken Unknown] clozapine 100 mg PO QHS 04/18/18 [History Last Taken Unknown] divalproex 500 mg PO TID 04/18/18 [History Last Taken Unknown] divalproex 250 mg PO BREAKFAST 07/17/18 [History Last Taken Unknown] Allergy/AdvReac Type Severity Reaction Status Date / Time No Known Allergies Allergy Verified 07/17/18 12:02 Social History Smoking Status: Never smoker ROS ROS ED Review of Systems ROS Unobtainable: due to mental condition and due to mental status EXAM Physical Exam Const Vital Signs: 11/18/20 11:47 11/18/20 11:51 11/18/20 12:05 Temperature 97.2 F L 97.6 F L Temperature Source Temporal Temporal Pulse Rate 96 95 Respiratory Rate 21 H 23 H Respiratory Effort Short of Breath Accessory Muscle Use Respiratory Depth Shallow Respiratory Pattern Tachypnea Blood Pressure 100/66 100/66 Blood Pressure Mean 77 77 Pulse Ox 80 89 Oxygen Delivery Method Room Air Nasal Cannula Nasal Cannula Oxygen Flow Rate (L/min) 4 6 Fraction of Inspired Oxygen (FIO2) 11/18/20 12:15 11/18/20 13:04 11/18/20 13:41 Temperature 100.5 F H 98.2 F Temperature Source Oral Oral Pulse Rate 98 Respiratory Rate 22 H Respiratory Effort Respiratory Depth Respiratory Pattern Blood Pressure 107/77 Blood Pressure Mean 87 Pulse Ox 90 Oxygen Delivery Method Nasal Cannula Nasal Cannula Oxygen Flow Rate (L/min) 6 6 Fraction of Inspired Oxygen (FIO2) 11/18/20 14:13 11/18/20 14:14 Temperature 98.7 F Temperature Source Oral Pulse Rate 87 Respiratory Rate 16 Respiratory Effort Respiratory Depth Respiratory Pattern Blood Pressure 99/78 Blood Pressure Mean 85 Pulse Ox 92 Oxygen Delivery Method Venturi Mask Venturi Mask Oxygen Flow Rate (L/min) Fraction of Inspired Oxygen (FIO2) 50 Positive well nourished General Appearance ED: Negative for pallor HEENT Reports dry mucous membranes Negative for atraumatic Mouth ED: Yes dry mucous membranes Mouth: dry mucous membranes Eyes PERRL and EOMs intact bilaterally Neck no lymphadenopathy and supple Resp Resp Narrative: Tachypneic. Diffuse rales. Cardio regular rate and regular rhythm GI non-tender Palpation: soft Neuro Sensorium / Orientation: alert Skin General Skin Exam: Negative for jaundice or pallor Lesions: no lesions Rashes: no rashes MDM MDM MDM Narrative Medical decision making narrative: 40-year-old male presenting with family out of concern for fever and shortness of breath. Patient found to be hypoxic. Sepsis work-up was initiated. Patient's EKG shows a normal sinus rhythm with a ventricular rate of 84 bpm without sign of ischemic change. Chest x-ray on my interpretation shows bilateral pulmonary infiltrates as well as small left-sided pleural effusion. The radiologist does agree. CBC shows white blood cell count 3.8, hemoglobin 10.7, hematocrit 30.2, platelets 47. It is noted the patient is on clozapine and this may be the cause. Depakote level was slightly high at 106. Renal function and electrolytes are normal. D-dimer was elevated at 2.67 and patient had CTA of the chest which showed no pulmonary emboli but did show concern for Covid as well as pleural effusion. Urinalysis is negative for infection. Lactic acid within normal limits at 1.3. Patient has remained on high flow oxygen in the ED and will need to be admitted for further care. He is given dexamethasone. Care was discussed with family and they currently want him to be a full code until they can determine is a family what they wish his CODE STATUS to be. This was discussed with the hospitalist team to be admitted to PCU. Impression: 1. COVID-19 pneumonitis 2. Hypoxic respiratory failure Lab Data Attestation: I reviewed the patient's lab results. Labs: Laboratory Results - last 24 hr 11/18/20 11/18/20 11/18/20 11:50 11:50 11:50 WBC 3.8 L RBC 3.70 L Hgb 10.7 L Hct 33.2 L MCV 89.7 MCH 28.9 MCHC 32.2 RDW Std Deviation 53.1 H RDW Coeff of Adrian 15.9 H Plt Count 47 L* MPV 11.0 Immature Gran % (Auto) 0.500 Neut % (Auto) 70.8 H Lymph % (Auto) 15.4 L [place] % (Auto) 13.0 H Eos % (Auto) 0.0 Baso % (Auto) 0.3 Absolute Neuts (auto) 2.7 Absolute Lymphs (auto) 0.58 L Nucleated RBC % 0 Differential Comment SCANNED Diff Path Review June foll PT 13.6 INR 1.1 APTT 39.9 H D-Dimer Quant (PE/DVT) 2.67 H* Sodium 140 Potassium 3.7 Chloride 107 Carbon Dioxide 30.0 Anion Gap 3 L BUN 19 H Creatinine 1.00 Estim Creat Clear Calc 108.86 Est GFR (MDRD) Af Amer 107 Est GFR (MDRD) Non-Af 89 BUN/Creatinine Ratio 19.1 Glucose 135 H Lactic Acid Calcium 8.8 Total Bilirubin 0.40 AST 19 ALT 13 L Alkaline Phosphatase 34 L Troponin I High Sens 6 Total Protein 6.5 Albumin 2.5 L Globulin 4.0 Albumin/Globulin Ratio 0.6 L Procalcitonin Urine Color Urine Clarity Urine pH Ur Specific [place] Urine Protein Urine Glucose (UA) Urine Ketones Urine Occult Blood Urine Nitrite Urine Bilirubin Urine Urobilinogen Ur Leukocyte Esterase Urine RBC Urine WBC Ur Squamous Epith Cells Urine Bacteria Hyaline Casts Urine Mucus Valproic Acid 11/18/20 11/18/20 11/18/20 11:50 11:50 11:50 WBC RBC Hgb Hct MCV MCH MCHC RDW Std Deviation RDW Coeff of Adrian Plt Count MPV Immature Gran % (Auto) Neut % (Auto) Lymph % (Auto) [place] % (Auto) Eos % (Auto) Baso % (Auto) Absolute Neuts (auto) Absolute Lymphs (auto) Nucleated RBC % Differential Comment Diff Path Review PT INR APTT D-Dimer Quant (PE/DVT) Sodium Potassium Chloride Carbon Dioxide Anion Gap BUN Creatinine Estim Creat Clear Calc Est GFR (MDRD) Af Amer Est GFR (MDRD) Non-Af BUN/Creatinine Ratio Glucose Lactic Acid 1.3 Calcium Total Bilirubin AST ALT Alkaline Phosphatase Troponin I High Sens Total Protein Albumin Globulin Albumin/Globulin Ratio Procalcitonin 0.88 H Urine Color Urine Clarity Urine pH Ur Specific [place] Urine Protein Urine Glucose (UA) Urine Ketones Urine Occult Blood Urine Nitrite Urine Bilirubin Urine Urobilinogen Ur Leukocyte Esterase Urine RBC Urine WBC Ur Squamous Epith Cells Urine Bacteria Hyaline Casts Urine Mucus Valproic Acid 106 H 11/18/20 12:54 WBC RBC Hgb Hct MCV MCH MCHC RDW Std Deviation RDW Coeff of [place] Plt Count MPV Immature Gran % (Auto) Neut % (Auto) Lymph % (Auto) [place] % (Auto) Eos % (Auto) Baso % (Auto) Absolute Neuts (auto) Absolute Lymphs (auto) Nucleated RBC % Differential Comment Diff Path Review PT INR APTT D-Dimer Quant (PE/DVT) Sodium Potassium Chloride Carbon Dioxide Anion Gap BUN Creatinine Estim Creat Clear Calc Est GFR (MDRD) Af Amer Est GFR (MDRD) Non-Af BUN/Creatinine Ratio Glucose Lactic Acid Calcium Total Bilirubin AST ALT Alkaline Phosphatase Troponin I High Sens Total Protein Albumin Globulin Albumin/Globulin Ratio Procalcitonin Urine Color Yellow Urine Clarity Sl. Cloudy Urine pH 6.0 Ur Specific [place] 1.020 Urine Protein 15 H Urine Glucose (UA) Normal Urine Ketones Negative Urine Occult Blood 10 H Urine Nitrite Negative Urine Bilirubin Negative Urine Urobilinogen Normal Ur Leukocyte Esterase Negative Urine RBC 0-5 SEEN Urine WBC 0 SEEN Ur Squamous Epith Cells 0 SEEN Urine Bacteria 0 SEEN Hyaline Casts 0-5 SEEN Urine Mucus 0 SEEN Valproic Acid Radiography Diagnostic Testing: Radiology Impression Chest X-Ray 11/18/20 12:15 IMPRESSION: Bibasilar infiltrates. Blunting of the left costophrenic angle. Electronically Signed: Karthik Armstrong MD at 13:08 EDT , Service support , Chest CTA 11/18/20 12:46 IMPRESSION: Bibasilar pulmonary infiltrates. Minimal pleural effusions. Electronically Signed: Karthik Armstrong MD at 13:31 EDT , Service support , Discharge Plan Triage Chief Complaint: Shortness of Breath ED Provider: Spenser Rojas Dx/Rx/DC Orders Prescriptions: No Action clozapine 100 MG tablet 100 mg PO QHS RF: 0 divalproex 500 MG tablet,delayed release (DR/EC) 500 mg PO TID RF: 0 benztropine 1 MG tablet 1 mg PO BID RF: 0 buspirone 15 MG tablet 15 mg PO TID RF: 0 clozapine 50 MG tablet 50 mg PO DAILY RF: 0 Clonazepam 0.5 MG tablet 0.5 mg PO BID RF: 0 divalproex 250 MG tablet 250 mg PO BREAKFAST RF: 0 Primary Care Provider: Carlo Wellington
[2020-11-18 12:27] LABS: Absolute Lymphocyte Count 0.58 X10^3/uL (0.83-4.51); Absolute Neutrophil Count 2.7 X10^3/uL (2.0-7.7); Basophil# 0.01 X10^3/uL; Basophil% 0.3 % (0-1); Hematocrit 33.2 % (40-54); Hemoglobin 10.7 g/dL (13.0-16.5); Lymphocyte # 0.58 X10^3/ul (0.83-4.51); Lymphocyte % 15.4 % (19-41); Mean Corp Hgb Conc 32.2 g/dL (32-36); Mean Corpuscular Hgb 28.9 pg (27.0-32.0); Mean Corpuscular Volume 89.7 fL (80-94); Monocyte# 0.49 X10^3/uL; NRBC Flagged by Analyzer 0 % (0-5); Neutrophil # 2.67 X10^3/uL (2.7-7.7); Neutrophil % 70.8 % (47-70); POSITIVE COUNT YES; POSITIVE DIFFERENTIAL YES; POSITIVE MORPHOLOGY YES; RBC Distribution Width CV 15.9 % (11.6-14.6); RBC Distribution Width SD 53.1 fl (35.1-43.9); White Blood Count 3.8 K/mm3 (4.4-11.0)
[2020-11-18 12:28] LABS: Differential Indicated SCAN CRITERIA MET
[2020-11-18 12:38] LABS: ALB/GLOB Ratio 0.6 RATIO (0.9-2.4); AST(SGOT) 19 U/L (15-37); Alanine Aminotransfer ALT/SGPT 13 U/L (16-61); Albumin, Serum 2.5 g/dL (3.2-5.0); Alkaline Phosphatase 34 U/L (45-117); Anion Gap 3 (5-15); BUN 19 mg/dL (7-18); BUN/Creat Ratio 19.1 RATIO (10-20); Calcium,Total 8.8 mg/dL (8.5-10.1); Chloride 107 mmol/L (98-107); EST Glomerular Filtration Rate 89 mL/min (>60); Est Glom Filt Rate - Afr Amer 107 mL/min (>60); Estimated Creatinine Clearance 108.86 ml/min; Glucose 135 mg/dL (74-106); Potassium 3.7 mmol/L (3.5-5.1); Protein, Total 6.5 g/dL (6.4-8.2); Sodium Level 140 mmol/L (136-145); Troponin-I HS 6 pg/mL (3.0-78.0)
[2020-11-18 12:46] LABS: D-Dimer Quantitative (DVT/PE) 2.67 FEU/ug/m (0.27-0.49); International Normalized Ratio 1.1; Prothrombin Time (Protime)PT. 13.6 SECONDS (11.7-14.9)
--- NOTE | 2020-11-18 12:46 | CT_ITS ---
STUDY: CTA CHEST REASON FOR EXAM: Male, 40 years old. Fever. Hypoxia and shortness of breath. RADIATION DOSAGE (If Supplied By Facility): CTDIvol = ( 11.43 ) mGy, DLP = ( 379.18 ) mGycm TECHNIQUE: The examination was performed with the intravenous administration of IV 100ML ISOVUE 370. Post-processing of the angiographic images was performed, with multiplanar reformation and 3D reconstruction. Individualized dose optimization techniques were used for this CT. COMPARISON: Comparison is made with prior chest radiograph done earlier today. FINDINGS: Normal enhancement of the main pulmonary artery and right and left pulmonary arteries. Normal enhancement of the bilateral peripheral pulmonary arteries. There is no demonstrated pulmonary embolism. Normal thoracic aorta and visualized great vessels. There is no demonstrated aortic dissection. Normal heart and pericardium. Normal mediastinum. Normal hilar regions. Normal visualized trachea and bronchi. The lungs are well expanded. There is evidence of bibasilar pulmonary infiltrates. Minimal pleural effusions. Normal chest wall structures. There are degenerative changes of thoracic spine. Normal visualized upper abdomen. CT/CTA Chest W/WO Contrast IMPRESSION: Bibasilar pulmonary infiltrates. Minimal pleural effusions. Electronically Signed: Karthik Armstrong MD at 13:31 EDT , Service support ,
--- NOTE | 2020-11-18 12:46 | ED.RN ---
notified d-dimer of 2.67.
[2020-11-18 12:47] LABS: Partial Thromboplast Time 39.9 Seconds (24.1-36.2); Valproic Acid (Depakene) Level 106 ug/mL (50-100)
[2020-11-18 12:48] LABS: Lactic Acid 1.3 mmol/L (0.4-1.9)
[2020-11-18 12:51] LABS: Differential Comment SCANNED
[2020-11-18 12:53] LABS: Platelet Count 47 K/mm3 (150-450); Procalcitonin 0.88 ng/mL (0.00-0.09)
--- NOTE | 2020-11-18 12:53 | ED.RN ---
platelets 47 per lab, dr duckworth notified
[2020-11-18 12:59] LABS: Bacteria 0 SEEN /hpf (None Seen); Mucous, Urine 0 SEEN /hpf (<or=2+); Squamous Epithelial Cells - UA 0 SEEN /hpf (0-5); White Blood Cells 0 SEEN /hpf (0-5)
[2020-11-18 13:02] LABS: Color, Urine Yellow (Yellow); Glucose, Dipstick Normal (Normal); Ketone-Dipstick Negative (Negative); Leukocyte Esterase-Dipstick Negative /ul (Negative); Nitrite-Dipstick Negative (Negative); Occult Blood-Urine 10 /ul (Negative); Protein-Dipstick 15 mg/dl (Negative); Urine Bilirubin Dipstick Negative (Negative); Urine Clarity Sl. Cloudy (Clear); Urine Urobilinogen Normal (Normal)
[2020-11-18 13:22] LABS: Hyaline Cast 0-5 SEEN /lpf (0-5); Red Blood Cells-Urine 0-5 SEEN /hpf (0-5)
[2020-11-18] MEDS: Acetaminophen 500 MG Tablet 1000 MG PO (13:22)
--- NOTE | 2020-11-18 15:12 | PCM.HP.STD ---
HPI - General General Date of Admission: 11/18/20 Date of Service: 11/18/20 Chief Complaint: Progressive SOB - 4 days HPI Narrative CELESTE HOOK, is a 40 M who presents resting shortness of breath ongoing for 4 days. Patient has MRDD, and functions at baseline by walking with a walker, can carry on some conversation. Patient is cared for by his brothers and father. Patient was noted to be lethargic over the last 4 days and short of breath. Was noted to have a fever 2 days ago; 105F. He was given Tylenol and ibuprofen. He was also noted to be coughing. He was seen by his primary care doctor yesterday who gave him a shot for pneumonia and a prescription. He was not tested for Covid 19. The EMS were called for progressive shortness of breath. Patient was found to be saturating 80% on room air. He improved on the Ventimask. His admitting blood work showed worsening pantocytopenia. Chest x-ray showed bilateral infiltrate. Covid-19 rapid antigen test is positive. CTA of the chest shows bibasilar pulmonary infiltrates, minimal pleural effusions. Procalcitonin is elevated. [facility] Medical History (Updated 11/18/20 @ 19:[address] Luz Maria Auguste MD) Bipolar 1 disorder Mental disability Home Medications Clonazepam 0.5 mg PO BID 04/18/18 [History Last Taken 11/18/20] benztropine 1 mg PO BID 04/18/18 [History Last Taken 11/18/20] buspirone 15 mg PO TID 04/18/18 [History Last Taken 11/18/20] clozapine 50 mg PO DAILY 04/18/18 [History Last Taken 11/18/20] clozapine 100 mg PO QHS 04/18/18 [History Last Taken 11/17/20] divalproex 500 mg PO TID 04/18/18 [History Last Taken 11/18/20] divalproex 250 mg PO BREAKFAST 07/17/18 [History Last Taken 11/18/20] Allergy/AdvReac Type Severity Reaction Status Date / Time No Known Allergies Allergy Verified 07/17/18 12:02 Family History no significant family his no significant family history Surgical History no surgical history no surgical history Social History (Updated 11/18/20 @ 19:[address] Luz Maria Auguste MD) household members: family Smoking Status: Never smoker alcohol intake: never ROS Review of Systems ROS Unobtainable: due to encephalopathy Vital Signs Vital Signs Vital Signs: 11/18/20 11:47 11/18/20 11:51 11/18/20 12:05 Temperature 97.2 F L 97.6 F L Temperature Source Temporal Temporal Pulse Rate 96 95 Respiratory Rate 21 H 23 H Respiratory Effort Short of Breath Accessory Muscle Use Respiratory Depth Shallow Respiratory Pattern Tachypnea Blood Pressure 100/66 100/66 Blood Pressure Mean 77 77 Pulse Ox 80 89 Oxygen Delivery Method Room Air Nasal Cannula Nasal Cannula Oxygen Flow Rate (L/min) 4 6 Fraction of Inspired Oxygen (FIO2) 11/18/20 12:15 11/18/20 13:04 11/18/20 13:41 Temperature 100.5 F H 98.2 F Temperature Source Oral Oral Pulse Rate 98 Respiratory Rate 22 H Respiratory Effort Respiratory Depth Respiratory Pattern Blood Pressure 107/77 Blood Pressure Mean 87 Pulse Ox 90 Oxygen Delivery Method Nasal Cannula Nasal Cannula Oxygen Flow Rate (L/min) 6 6 Fraction of Inspired Oxygen (FIO2) 11/18/20 14:13 11/18/20 14:14 Temperature 98.7 F Temperature Source Oral Pulse Rate 87 Respiratory Rate 16 Respiratory Effort Respiratory Depth Respiratory Pattern Blood Pressure 99/78 Blood Pressure Mean 85 Pulse Ox 92 Oxygen Delivery Method Venturi Mask Venturi Mask Oxygen Flow Rate (L/min) Fraction of Inspired Oxygen (FIO2) 50 Weight Weight: 90.1 kg Body Mass Index (BMI) 26.9 Physical Exam Narrative Physical exam: General: Patient appears lethargic, not pale, not jaundiced, on the Ventimask HEENT: Atraumatic Oral: Moist Mucosa Neck: Supple Lungs: Diminished to auscultation Cardiovascular: HS I+II, regular, no murmurs Abdomen: Bowel Sounds Present, Soft, Non Tender Extremities: No edema Results Lab / Micro Data Result Diagrams: 11/18/20 11:50 11/18/20 11:50 Labs: Laboratory Results - last 24 hr 11/18/20 11:50: WBC 3.8 L, RBC 3.70 L, Hgb 10.7 L, Hct 33.2 L, MCV 89.7, MCH 28.9, MCHC 32.2, RDW Std Deviation 53.1 H, RDW Coeff of [place] 15.9 H, Plt Count 47 L*, MPV 11.0, Immature Gran % (Auto) 0.500, Neut % (Auto) 70.8 H, Lymph % (Auto) 15.4 L, [place] % (Auto) 13.0 H, Eos % (Auto) 0.0, Baso % (Auto) 0.3, Absolute Neuts (auto) 2.7, Absolute Lymphs (auto) 0.58 L, Nucleated RBC % 0, Differential Comment SCANNED, Diff Path Review June11/18/20 11:50: PT 13.6, INR 1.1, APTT 39.9 H, D-Dimer Quant (PE/DVT) 2.67 H* 11/18/20 11:50: Sodium 140, Potassium 3.7, Chloride 107, Carbon Dioxide 30.0, Anion Gap 3 L, BUN 19 H, Creatinine 1.00, Estim Creat Clear Calc 108.86, Est GFR (MDRD) Af Amer 107, Est GFR (MDRD) Non-Af 89, BUN/Creatinine Ratio 19.1, Glucose 135 H, Calcium 8.8, Total Bilirubin 0.40, AST 19, ALT 13 L, Alkaline Phosphatase 34 L, Troponin I High Sens 6, Total Protein 6.5, Albumin 2.5 L, Globulin 4.0, Albumin/Globulin Ratio 0.6 L 11/18/20 11:50: Valproic Acid 106 H 11/18/20 11:50: Lactic Acid 1.3 11/18/20 11:50: Procalcitonin 0.88 H 11/18/20 12:54: Urine Color Yellow, Urine Clarity Sl. Cloudy, Urine pH 6.0, Ur Specific [place] 1.020, Urine Protein 15 H, Urine Glucose (UA) Normal, Urine Ketones Negative, Urine Occult Blood 10 H, Urine Nitrite Negative, Urine Bilirubin Negative, Urine Urobilinogen Normal, Ur Leukocyte Esterase Negative, Urine RBC 0-5 SEEN, Urine WBC 0 SEEN, Ur Squamous Epith Cells 0 SEEN, Urine Bacteria 0 SEEN, Hyaline Casts 0-5 SEEN, Urine Mucus 0 SEEN Micro: Microbiology 11/18/20 14:20 Nasal Secretion SARS-CoV-2 Antigen (Rapid) - Final SARS-CoV-2 (COVID 19) Radiology Impression Chest X-Ray 11/18/20 12:15 IMPRESSION: Bibasilar infiltrates. Blunting of the left costophrenic angle. Electronically Signed: Karthik Armstrong MD at 13:08 EDT , Service support , Chest CTA 11/18/20 12:46 IMPRESSION: Bibasilar pulmonary infiltrates. Minimal pleural effusions. Electronically Signed: Karthik Armstrong MD at 13:31 EDT , Service support , Assessment & Plan Assessment/Plan (1) Acute respiratory failure with hypoxia: (2) Pneumonia due to severe acute respiratory syndrome coronavirus 2 (SARS-CoV-2): (3) Leukopenia: QUALIFIERS: Leukopenia type: lymphocytopenia Qualified Code(s): D72.810 - Lymphocytopenia (4) Thrombocytopenia: (5) Mental disability: PLAN: 1. Acute hypoxic respiratory failure secondary to acute COVID-19 pneumonia Patient has underlying MRDD Currently on 50% Ventimask Patient is unvaccinated; symptoms started 4 days ago Chest x-ray shows bilateral pneumonia. CTA of the chest confirmed bilateral pneumonia, no acute PE Will continue on dexamethasone and remdesivir Consider ID consult if respiratory status worsens Pulmonology consult 2. Pancytopenia, slightly worsened, likely secondary to acute Covid infection and also clozapine side effect Will continue to monitor, consider discontinuation of clozapine if pancytopenia worsens 3. Hyperglycemia, no history of diabetes Will check HbA1c, will put on insulin sliding scale was on Decadron 4. Bipolar disorder, on valproic acid, valproate levels increased to 106 Will hold valproic acid tonight, repeat valproic acid levels in a.m. Valproic acid can be resumed if levels are improved 5. DVT prophylaxis with SCDs on account of thrombocytopenia I discussed and explained in details the various types of CODE STATUS-full code, DNR CCA, DNR CC. Patient is nonverbal, his brother at bedside stated that the family would not like patient to be intubated or kept on mechanical ventilator. They initially wanted the patient to be full code, until they could discuss further in the event of a cardiopulmonary arrest. Upon further explanation, he agreed that they do not want patient intubated and kept on mechanical ventilator. Time spent discussing CODE STATUS 18 minutes Charges/Coding Visit Charges Inpatient E&M: 97652 Init Hosp L3 Procedures Hospitalists Procedures: 21096 Advncd Care Plan 30 Min
[2020-11-18] MEDS: dexAMETHasone 10 MG/ML Vial 6 MG IV (15:26)
--- NOTE | 2020-11-18 15:42 | NURSING ---
PCU COVID 19, [facility]
--- NOTE | 2020-11-18 15:52 | ED.RN ---
pt brother asking for clarification regarding what ed dr was talking about with ventilator, admission etc. dr montes de oca entered room. discussed questions and issues with pt. brother able to verbalize understanding and dnr with no ventilation
--- NOTE | 2020-11-18 15:57 | ED.RN ---
spoke with corinna charged nurse regarding pt shinto and mrdd. speaks little to no andorran, brother at bedside assisting with pt. pt hard to understand and gets aggitated at times.
--- NOTE | 2020-11-18 17:41 | PCS.PANDOC ---
PANDEMIC DOCUMENTATION INITIATED: Date: 10/03/2020 Time: 190
[2020-11-18 17:52] LABS: BNP,B-Type NATRIURETIC PEPTIDE 8.9 pg/mL (0-100)
[2020-11-18] MEDS: Furosemide 40 MG/4 ML Vial IV (20:15)
[2020-11-18 20:49] LABS: Hemoglobin A1c 5.6 % (3.8-5.6)
[2020-11-18] MEDS: clonazePAM 0.5 MG Tablet PO (21:32)
[2020-11-18] MEDS: Benztropine 2 MG Tablet 1 MG PO (21:32)
[2020-11-18] MEDS: busPIRone 15 MG TABLET PO (22:25)
[2020-11-18 22:35] LABS: Bedside Glucose 132 mg/dL (70-110)
[2020-11-19] VITALS (28 sets, daily range): BP systolic 81–125; BP diastolic 59–75; PULSE 77–110; RESP 23–34; TEMP 36.1–37.6; O2SAT 9–98
[2020-11-19] MEDS: busPIRone 15 MG TABLET PO ×3 (05:37→22:33)
[2020-11-19 06:55] LABS: Bedside Glucose 109 mg/dL (70-110)
[2020-11-19 07:01] LABS: Absolute Lymphocyte Count 0.41 X10^3/uL (0.83-4.51); Absolute Neutrophil Count 3.2 X10^3/uL (2.0-7.7); Hematocrit 35.8 % (40-54); Hemoglobin 11.3 g/dL (13.0-16.5); Lymphocyte # 0.41 X10^3/ul (0.83-4.51); Mean Corp Hgb Conc 31.6 g/dL (32-36); Mean Corpuscular Volume 91.8 fL (80-94); Mean Platelet Vol. 10.8 fl (6.2-12.0); Monocyte# 0.46 X10^3/uL; Monocyte% 11.2 % (0-10); NRBC Flagged by Analyzer 0 % (0-5); Neutrophil # 3.22 X10^3/uL (2.7-7.7); Neutrophil % 78.3 % (47-70); POSITIVE COUNT YES; POSITIVE DIFFERENTIAL YES; POSITIVE MORPHOLOGY YES; RBC Distribution Width CV 15.9 % (11.6-14.6); RBC Distribution Width SD 53.8 fl (35.1-43.9); White Blood Count 4.1 K/mm3 (4.4-11.0)
[2020-11-19 07:25] LABS: ALB/GLOB Ratio 0.5 RATIO (0.9-2.4); AST(SGOT) 26 U/L (15-37); Alanine Aminotransfer ALT/SGPT 18 U/L (16-61); Albumin, Serum 2.2 g/dL (3.2-5.0); Alkaline Phosphatase 36 U/L (45-117); Anion Gap 7 (5-15); BUN 21 mg/dL (7-18); BUN/Creat Ratio 30.5 RATIO (10-20); Calcium,Total 9.2 mg/dL (8.5-10.1); Chloride 107 mmol/L (98-107); Creatinine, Serum 0.69 mg/dL (0.70-1.30); EST Glomerular Filtration Rate 136 mL/min (>60); Est Glom Filt Rate - Afr Amer 164 mL/min (>60); Estimated Creatinine Clearance 157.76 ml/min; Globulin 4.5 g/dL (2.2-4.2); Glucose 133 mg/dL (74-106); Potassium 4.3 mmol/L (3.5-5.1); Protein, Total 6.7 g/dL (6.4-8.2); Sodium Level 142 mmol/L (136-145)
[2020-11-19 07:26] LABS: Valproic Acid (Depakene) Level 83 ug/mL (50-100)
[2020-11-19 07:32] LABS: Differential Indicated SCAN CRITERIA MET; Platelet Count 50 K/mm3 (150-450)
--- NOTE | 2020-11-19 07:47 | PCM.PN.HOSP ---
Subjective Subjective 40-year-old male with history of MRDD admitted for 5 days history of fever, generalized weakness, lethargy. As per father his temperature was 105 ?F on 4 and 101 axillary past Saturday 3 days ago. Patient was tachypneic in ED respiratory rate 23 to 26/min, pulse ox 94% on 50% FiO2. I talked to the patient's brother near the bedside. The patient's sister is power of mergers and acquisitions attorney of health but all mother and sister take care of him. Patient is noncommunicative at baseline but can feed himself. Denies choking or dysphagia symptoms but sometimes he gets cough. Objective Data Objective Data Vital Signs: Vital Signs Temp Pulse Resp BP Pulse Ox 97.0 F L 91 23 H 101/70 94 11/19/20 05:45 11/19/20 06:44 11/19/20 05:45 11/19/20 05:45 11/19/20 05:45 Oxygen Flow Rate (L/min) 50 Oxygen Delivery Method Venturi Mask Weight: 195 lb 12.328 oz Body Mass Index (BMI) 26.5 Intake & Output: Intake and Output for Last 24 Hours 11/17/20 11/18/20 11/19/20 23:59 23:59 23:59 Intake Total 450 / 450 200 / 200 Output Total 1400 / 1400 400 / 400 Balance -950 / -950 -200 / -200 Lab / Micro Data Result Diagrams: 11/19/20 06:40 11/19/20 06:40 Labs: Laboratory Results - last 24 hr 11/18/20 11:50: WBC 3.8 L, RBC 3.70 L, Hgb 10.7 L, Hct 33.2 L, MCV 89.7, MCH 28.9, MCHC 32.2, RDW Std Deviation 53.1 H, RDW Coeff of [place] 15.9 H, Plt Count 47 L*, MPV 11.0, Immature Gran % (Auto) 0.500, Neut % (Auto) 70.8 H, Lymph % (Auto) 15.4 L, [place] % (Auto) 13.0 H, Eos % (Auto) 0.0, Baso % (Auto) 0.3, Absolute Neuts (auto) 2.7, Absolute Lymphs (auto) 0.58 L, Nucleated RBC % 0, Differential Comment SCANNED, Diff Path Review May foll 10/01/21 11:50: PT 13.6, INR 1.1, APTT 39.9 H, D-Dimer Quant (PE/DVT) 2.67 H* 11/18/20 11:50: Sodium 140, Potassium 3.7, Chloride 107, Carbon Dioxide 30.0, Anion Gap 3 L, BUN 19 H, Creatinine 1.00, Estim Creat Clear Calc 108.86, Est GFR (MDRD) Af Amer 107, Est GFR (MDRD) Non-Af 89, BUN/Creatinine Ratio 19.1, Glucose 135 H, Calcium 8.8, Total Bilirubin 0.40, AST 19, ALT 13 L, Alkaline Phosphatase 34 L, Troponin I High Sens 6, Total Protein 6.5, Albumin 2.5 L, Globulin 4.0, Albumin/Globulin Ratio 0.6 L 11/18/20 11:50: Valproic Acid 106 H 11/18/20 11:50: Lactic Acid 1.3 11/18/20 11:50: Procalcitonin 0.88 H 11/18/20 11:50: B-Natriuretic Peptide 8.9 11/18/20 12:54: Urine Color Yellow, Urine Clarity Sl. Cloudy, Urine pH 6.0, Ur Specific [place] 1.020, Urine Protein 15 H, Urine Glucose (UA) Normal, Urine Ketones Negative, Urine Occult Blood 10 H, Urine Nitrite Negative, Urine Bilirubin Negative, Urine Urobilinogen Normal, Ur Leukocyte Esterase Negative, Urine RBC 0-5 SEEN, Urine WBC 0 SEEN, Ur Squamous Epith Cells 0 SEEN, Urine Bacteria 0 SEEN, Hyaline Casts 0-5 SEEN, Urine Mucus 0 SEEN 11/18/20 19:55: Hemoglobin A1c 5.6 11/18/20 22:15: POC Glucose 132 H 11/19/20 06:25: POC Glucose 109 11/19/20 06:40: WBC 4.1 L, RBC 3.90 L, Hgb 11.3 L, Hct 35.8 L, MCV 91.8, MCH 29.0, MCHC 31.6 L, RDW Std Deviation 53.8 H, RDW Coeff of [place] 15.9 H, Plt Count 50 L*, MPV 10.8, Immature Gran % (Auto) 0.500, Neut % (Auto) 78.3 H, Lymph % (Auto) 10.0 L, [place] % (Auto) 11.2 H, Eos % (Auto) 0.0, Baso % (Auto) 0.0, Absolute Neuts (auto) 3.2, Absolute Lymphs (auto) 0.41 L, Nucleated RBC % 0 11/19/20 06:40: Sodium 142, Potassium 4.3, Chloride 107, Carbon Dioxide 28.0, Anion Gap 7, BUN 21 H, Creatinine 0.69 L, Estim Creat Clear Calc 157.76, Est GFR (MDRD) Af Amer 164, Est GFR (MDRD) Non-Af 136, BUN/Creatinine Ratio 30.5 H, Glucose 133 H, Calcium 9.2, Total Bilirubin 0.20, AST 26, ALT 18, Alkaline Phosphatase 36 L, Total Protein 6.7, Albumin 2.2 L, Globulin 4.5 H, Albumin/Globulin Ratio 0.5 L 11/19/20 06:40: Valproic Acid 83 Micro: Microbiology 11/18/20 17:00 Mucosa - Nose Respiratory Panel (PCR) - Final 11/18/20 14:20 Nasal Secretion SARS-CoV-2 Antigen (Rapid) - Final SARS-CoV-2 (COVID 19) Radiography Diagnostic Testing: Radiology Impression Chest X-Ray 11/18/20 12:15 IMPRESSION: Bibasilar infiltrates. Blunting of the left costophrenic angle. Electronically Signed: Karthik Armstrong MD at 13:08 EDT , Service support , Chest CTA 11/18/20 12:46 IMPRESSION: Bibasilar pulmonary infiltrates. Minimal pleural effusions. Electronically Signed: Karthik Armstrong MD at 13:31 EDT , Service support , Physical Exam Narrative General: Awake, Noncommunicative at baseline. HEENT: Atraumatic, PERRLA, EOMI, Normocephalic Oral: on Ventimask. Neck: Supple, No JVD, Negative Carotid Bruits Lungs: 50% FiO2 air entry diminished in bilateral lung bases. Bibasilar fine crepitations present. Hypoxic and tachypneic. Cardiovascular: Regular rate, Regular Rhythm, Normal S1, Normal S2, No murmurs Abdomen: Bowel Sounds Present, Soft, Non Tender, Non-Distended : No renal angle tenderness. No suprapubic tenderness. Extremities: No edema, Capillary Refill Less than 3 Seconds Skin: No rashes, No breakdown Musculoskeletal: No Tenderness to Palpation of Joints or Extremities Neurological: Cranial nerves II-XII grossly intact, decreased cognitive status. Does not follow command at baseline Psych/Mental Status: Flat affect. Assessment & Plan Assessment/Plan (1) Acute respiratory failure with hypoxia: (2) Pneumonia due to severe acute respiratory syndrome coronavirus 2 (SARS-CoV-2): (3) Leukopenia: QUALIFIERS: Leukopenia type: lymphocytopenia Qualified Code(s): D72.810 - Lymphocytopenia (4) Thrombocytopenia: (5) Mental disability: PLAN: 1. Acute hypoxic respiratory failure secondary to acute COVID-19 pneumonia: Patient is being admitted to PCU. On 50% FiO2. On dexamethasone and remdesivir. Discussed with ID Dr. Bar Palma and he approved for baricitinib. Started on imatinib 4 mg daily for 2 weeks. Discussed with the pharmacist. Patient is unvaccinated; symptoms started 4 days ago Chest x-ray and CTA of the chest confirmed bilateral pneumonia. No acute PE. Seen by political organizer and he agrees with the plan. 2. Pancytopenia, slightly worsened, likely secondary to acute Covid infection and also clozapine side effect. Platelet count 50,000. Will hold clozapine Will hold clozapine. Patient is put back on valproic acid 500 mg 3 times daily. Hold external Zoloft to 50 mg in the morning. 3. Hyperglycemia, no history of diabetes: A1c 5.6%. Glucose 133. on insulin sliding scale was on Decadron 4. Bipolar disorder, on valproic acid, valproate levels increased to 106. Repeat valproic acid 101. Resume valproic acid. 5. DVT prophylaxis with SCDs on account of thrombocytopenia Total time of the visit including total time spent in counseling or coordination of care, (more than 50% of the total time, spent in obtaining medical information from nurses and other ancillary care providers,explaining to the patient about labs, imaging, diagnosis and management), discussion with the patient's brother near the bedside and ID regarding baricitinib, review of labs and imaging is 30 minutes. Charges/Coding Visit Charges Inpatient E&M: 57817 Subs Hosp L3
[2020-11-19 09:37] LABS: Differential Comment SCANNED
[2020-11-19] MEDS: dexAMETHasone 10 MG/ML Vial 6 MG IV (09:37)
[2020-11-19 09:38] LABS: Platelet Estimate MKD DEC (ADEQ)
--- NOTE | 2020-11-19 10:47 | EX.PCM.CONCC ---
Assessment & Plan Assessment/Plan (1) Pneumonia due to severe acute respiratory syndrome coronavirus 2 (SARS-CoV-2): (2) Acute respiratory failure with hypoxia: (3) Thrombocytopenia: (4) Mental disability: PLAN: RECOMMENDATIONS: 1. Continue Decadron and Remdesivir 2. Monitor renal and liver function daily 3. Doubt baricitinib candidate given pancytopenia. Could discuss with ID 4. Agree with diuretics as tolerated 5. Wean oxygen as tolerated, may tolerate VM better than Airvo given mental condition IMPRESSIONS: 1. Acute hypoxic respiratory failure secondary to COVID-19 Patient currently tolerating Ventimask, but has extensive infiltrates noted on CT of the chest. Patient is on Decadron and Remdesivir. Doubt patient would be a candidate for baricitinib given his pancytopenia, but could discuss with infectious disease. May need to attempt using Ventimask more than Airvo as patient may not tolerate secondary to his mental status. Patient reportedly is on the 4th day of symptoms, but this would be relatively aggressive from my perspective. Unclear if history is giving a clear perspective on onset. 2. Pancytopenia Unclear etiology. This may be secondary to medications or viral illness. No indication for transfusion at this time, but would continue to follow on a daily basis 3. Bipolar disorder/MRDD/hyperglycemia Complicates care, management, recovery and prognosis. Patient is on Decadron therapy. Patient may require basal insulin. Valproate levels appear to be appropriate. Did confirm with brother the patient is a DNR Comfort Care arrest without intubation. HPI Consult Data Date of Consult: 11/19/20 HPI Narrative HPI Narrative: CELESTE HOOK is a 40 M, with past medical history listed below, who presents to [facility] on 11/18/2020 secondary to fever and progressive shortness of breath. Patient does have developmental delay, so most of the history is per the family. Patient reportedly started to have symptoms on Saturday when it was noted that he had a fever of 105 ?F. Patient was given Tylenol and ibuprofen with improvement. Patient is generalized weak, but not reporting much cough. Patient reportedly had been seen by his PCP and was given a shot for pneumonia and a prescription for medication. Patient was not tested for COVID-19. In the ER, patient was afebrile, but saturating 80% on room air with tachypnea. Blood pressure was adequate, but patient required a 50% Ventimask to maintain saturations. Laboratory work-up showed lymphopenia at 3.8, thrombocytopenia at 47 and anemia at 10.7. Patient did have an elevated D-dimer at 2.67, but chemistries were relatively unremarkable. Lactate was within normal limits and a pro calcitonin was 0.88. UA was unremarkable. A chest x-ray showed bibasilar infiltrates with blunting of the left costophrenic angle. A CTA of the chest showed no PE with bilateral infiltrates and minimal effusions. Patient was admitted to the floor for further evaluation. On my evaluation, patient's brother (not the one he lives with) stated that he did not believe the patient had a history of pulmonary dysfunction. Patient has not required supplemental oxygen previously. Patient reportedly does not have a history of pancytopenia. Brother was unclear if patient had had an immunization or not, but thought that that would probably not be done. Patient reportedly has not had any pain or GI symptoms. Patient reportedly has been able to keep down his normal medications. Review of systems otherwise negative from a constitutional, HEENT, respiratory, cardiovascular, GI, genitourinary, musculoskeletal, skin, neurologic, psychiatric and hematologic system unless stated above. [facility] Medical History (Updated 11/18/20 @ 19:[address] Luz Maria Auguste MD) Bipolar 1 disorder Mental disability Home Medications Clonazepam 0.5 mg PO BID 04/18/18 [History Last Taken 11/18/20] benztropine 1 mg PO BID 04/18/18 [History Last Taken 11/18/20] buspirone 15 mg PO TID 04/18/18 [History Last Taken 11/18/20] clozapine 50 mg PO DAILY 04/18/18 [History Last Taken 11/18/20] clozapine 100 mg PO QHS 04/18/18 [History Last Taken 11/17/20] divalproex 500 mg PO TID 04/18/18 [History Last Taken 11/18/20] divalproex 250 mg PO BREAKFAST 07/17/18 [History Last Taken 11/18/20] Allergy/AdvReac Type Severity Reaction Status Date / Time No Known Allergies Allergy Verified 07/17/18 12:02 Family History no significant family his Surgical History no surgical history Social History (Updated 11/18/20 @ 19:[address] Luz Maria Auguste MD) household members: family Smoking Status: Never smoker alcohol intake: never ROS ROS Narrative See HPI. Review of Systems ROS Unobtainable: due to mental condition Physical Exam Const alert Constitutional Narrative: Mild distress. Does make eye contact General Appearance: cooperative and well developed HEENT head/scalp atraumatic and moist oral mucous membranes; Negative for normocephalic Eyes PERRL and EOMs intact bilaterally Neck full ROM and no lymphadenopathy Chest inspection of chest normal Chest: symmetrical chest wall rise; Negative for crepitus Resp Auscultation: diminished lung sounds; Negative for rales, rhonchi or wheezes Percussion: Negative for dullness Cardio regular rate, regular rhythm, S1 normal heart sound, S2 normal heart sound, no murmurs, no rub and no gallops GI normal to inspection, nondistended, normoactive bowel sounds no CVA tenderness Extremity no clubbing, cyanosis or edema Skin no rashes or lesions noted Neuro moves all extremities and no focal motor deficits Neuro Narrative: Patient not cooperative with full exam Psych Mood & Affect: flat affect Lab / Micro Data Result Diagrams: 11/19/20 06:40 11/19/20 06:40 Labs: Laboratory Results - last 24 hr 11/18/20 11:50: WBC 3.8 L, RBC 3.70 L, Hgb 10.7 L, Hct 33.2 L, MCV 89.7, MCH 28.9, MCHC 32.2, RDW Std Deviation 53.1 H, RDW Coeff of Adrian 15.9 H, Plt Count 47 L*, MPV 11.0, Immature Gran % (Auto) 0.500, Neut % (Auto) 70.8 H, Lymph % (Auto) 15.4 L, [place] % (Auto) 13.0 H, Eos % (Auto) 0.0, Baso % (Auto) 0.3, Absolute Neuts (auto) 2.7, Absolute Lymphs (auto) 0.58 L, Nucleated RBC % 0, Differential Comment SCANNED, Diff Path Review June11/18/20 11:50: PT 13.6, INR 1.1, APTT 39.9 H, D-Dimer Quant (PE/DVT) 2.67 H* 11/18/20 11:50: Sodium 140, Potassium 3.7, Chloride 107, Carbon Dioxide 30.0, Anion Gap 3 L, BUN 19 H, Creatinine 1.00, Estim Creat Clear Calc 108.86, Est GFR (MDRD) Af Amer 107, Est GFR (MDRD) Non-Af 89, BUN/Creatinine Ratio 19.1, Glucose 135 H, Calcium 8.8, Total Bilirubin 0.40, AST 19, ALT 13 L, Alkaline Phosphatase 34 L, Troponin I High Sens 6, Total Protein 6.5, Albumin 2.5 L, Globulin 4.0, Albumin/Globulin Ratio 0.6 L 11/18/20 11:50: Valproic Acid 106 H 11/18/20 11:50: Lactic Acid 1.3 11/18/20 11:50: Procalcitonin 0.88 H 11/18/20 11:50: B-Natriuretic Peptide 8.9 11/18/20 12:54: Urine Color Yellow, Urine Clarity Sl. Cloudy, Urine pH 6.0, Ur Specific [place] 1.020, Urine Protein 15 H, Urine Glucose (UA) Normal, Urine Ketones Negative, Urine Occult Blood 10 H, Urine Nitrite Negative, Urine Bilirubin Negative, Urine Urobilinogen Normal, Ur Leukocyte Esterase Negative, Urine RBC 0-5 SEEN, Urine WBC 0 SEEN, Ur Squamous Epith Cells 0 SEEN, Urine Bacteria 0 SEEN, Hyaline Casts 0-5 SEEN, Urine Mucus 0 SEEN 11/18/20 19:55: Hemoglobin A1c 5.6 11/18/20 22:15: POC Glucose 132 H 11/19/20 06:25: POC Glucose 109 11/19/20 06:40: WBC 4.1 L, RBC 3.90 L, Hgb 11.3 L, Hct 35.8 L, MCV 91.8, MCH 29.0, MCHC 31.6 L, RDW Std Deviation 53.8 H, RDW Coeff of Adrian 15.9 H, Plt Count 50 L*, MPV 10.8, Immature Gran % (Auto) 0.500, Neut % (Auto) 78.3 H, Lymph % (Auto) 10.0 L, [place] % (Auto) 11.2 H, Eos % (Auto) 0.0, Baso % (Auto) 0.0, Absolute Neuts (auto) 3.2, Absolute Lymphs (auto) 0.41 L, Nucleated RBC % 0, Differential Comment SCANNED, Diff Path Review May foll, Platelet Estimate MKD DEC 11/19/20 06:40: Sodium 142, Potassium 4.3, Chloride 107, Carbon Dioxide 28.0, Anion Gap 7, BUN 21 H, Creatinine 0.69 L, Estim Creat Clear Calc 157.76, Est GFR (MDRD) Af Amer 164, Est GFR (MDRD) Non-Af 136, BUN/Creatinine Ratio 30.5 H, Glucose 133 H, Calcium 9.2, Total Bilirubin 0.20, AST 26, ALT 18, Alkaline Phosphatase 36 L, Total Protein 6.7, Albumin 2.2 L, Globulin 4.5 H, Albumin/Globulin Ratio 0.5 L 11/19/20 06:40: Valproic Acid 83 Micro: Microbiology 11/18/20 17:00 Mucosa - Nose Respiratory Panel (PCR) - Final 11/18/20 14:20 Nasal Secretion SARS-CoV-2 Antigen (Rapid) - Final SARS-CoV-2 (COVID 19) Radiology Impression Chest X-Ray 11/18/20 12:15 IMPRESSION: Bibasilar infiltrates. Blunting of the left costophrenic angle. Electronically Signed: Karthik Armstrong MD at 13:08 EDT , Service support , Chest CTA 11/18/20 12:46 IMPRESSION: Bibasilar pulmonary infiltrates. Minimal pleural effusions. Electronically Signed: Karthik Armstrong MD at 13:31 EDT , Service support , Charges/Coding Visit Charges Inpatient E&M: 18426 Init Hosp L3
[2020-11-19] MEDS: 0.9% Saline Lock 10 ML Syringe IV (11:06)
[2020-11-19] MEDS: Benztropine 2 MG Tablet 1 MG PO ×2 (11:18→22:33)
[2020-11-19] MEDS: CLOZAPINE 50 MG PO (11:21)
[2020-11-19] MEDS: clonazePAM 0.5 MG Tablet PO ×2 (11:25→16:32)
--- NOTE | 2020-11-19 11:26 | NURSING ---
All PO meds given with speech therapist at this time
[2020-11-19 11:55] LABS: Bedside Glucose 101 mg/dL (70-110)
--- NOTE | 2020-11-19 13:00 | CASEMGMT ---
UMBERTO ORTIZ LEAD TINNER ANGEL to room for initial transition planning/care coordination assessment. UMBERTO ORTIZ introduced self and role at [facility]. Pt resting in bed in no distress at this time. Pt has mental disability/MRDD. Pt's brother, Enio Pedraza @ bedside and the following information obtained from him. Care providers,and demographics verified/updated at this time. COVID testing done @ [facility] this admission PCP: Dr Wellington Specialists: either psychiatry or psychology Preferred Pharmacy: Enio is not sure Insurance: [facility] Prescription Benefit: Yes LNOK: Pt is [place]. father, Titi Pedraza. Pt has 15 siblings. Enio states pt's sister, Sandhya Chang, is pt's guardian. PH: [phone]. Ext 2. He states can leave a message for Sandhya at that number and she will call back. Living Arrangements: Pt lives w/his father and brother, Reid, who both help take care of pt as well as many other family members. Sister, Sandhya lives in house on same property. Sandhya manages pt's meds, appts, and meals. Pt able to feed self. He does need some assistance w/bathing/dressing at times. Pt goes to [employer] M[employer]. Transportation: Hire drivers DME: Noted it is documented that pt uses a walker @ baseline. Per Enio, pt ambulates independently @ baseline and does not use assistive device. They have a pulse ox. Enio states does not know what other DME pt may need once he is discharged, as he is weak and not at his baseline. They do have access to electricity or generator if pt would need O2 @ d/c. Reviewed list of local DME companies and made aware [email or web address] is affiliate of [facility]. Enio chooses [employer]. HHC/SNF: No hx of either. Discussed option of SNF @ d/c. Enio states thinks family will most likely wish for pt to return home and for them to take care of pt, but he will discuss this with Sandhya/Karla and other family members. Enio states, if pt is able to return home, they may consider HHC and pt may need DME. PLAN: TBD. PT/OT evals pending. Rosy DARLING RN, CM
[2020-11-19] MEDS: Divalproex Sodium 250 MG Tablet 500 MG PO ×2 (16:28→22:33)
--- NOTE | 2020-11-19 16:40 | CM.ED ---
SW Note Referral Source: RN CM Referral Reason: Discharge Planning Patient has 15 siblings, per CM. They would prefer to take patient home at discharge. Patient's sister, Sandhya, is the GUARDIAN. Siobhan FIORE
[2020-11-19] MEDS: Insulin Lispro 100 UNIT/ML INSULN.PEN SC (16:44)
[2020-11-19 16:56] LABS: Bedside Glucose 175 mg/dL (70-110)
[2020-11-19] MEDS: Acetaminophen 325 MG Tablet 650 MG PO (20:37)
[2020-11-19 21:36] LABS: Bedside Glucose 132 mg/dL (70-110)
[2020-11-20] VITALS (23 sets, daily range): BP systolic 82–104; BP diastolic 57–74; PULSE 57–83; RESP 19–36; TEMP 36.1–36.6; O2SAT 89–97
[2020-11-20] MEDS: Divalproex Sodium 250 MG Tablet 500 MG PO ×2 (05:19→13:28)
[2020-11-20] MEDS: busPIRone 15 MG TABLET PO ×2 (05:19→22:40)
[2020-11-20 06:04] LABS: Absolute Lymphocyte Count 0.87 X10^3/uL (0.83-4.51); Absolute Neutrophil Count 3.5 X10^3/uL (2.0-7.7); Basophil# 0.01 X10^3/uL; Basophil% 0.2 % (0-1); Hematocrit 34.9 % (40-54); Lymphocyte # 0.87 X10^3/ul (0.83-4.51); Lymphocyte % 17.2 % (19-41); Mean Corp Hgb Conc 31.5 g/dL (32-36); Mean Corpuscular Hgb 28.9 pg (27.0-32.0); Mean Corpuscular Volume 91.6 fL (80-94); Mean Platelet Vol. 10.8 fl (6.2-12.0); Monocyte% 11.9 % (0-10); NRBC Flagged by Analyzer 0 % (0-5); Neutrophil # 3.54 X10^3/uL (2.7-7.7); Neutrophil % 70.1 % (47-70); POSITIVE COUNT YES; Platelet Count 68 K/mm3 (150-450); RBC Distribution Width SD 54.4 fl (35.1-43.9); Red Blood Count 3.81 M/mm3 (4.6-6.2); White Blood Count 5.1 K/mm3 (4.4-11.0)
[2020-11-20 06:31] LABS: Bedside Glucose 116 mg/dL (70-110)
[2020-11-20 06:35] LABS: ALB/GLOB Ratio 0.5 RATIO (0.9-2.4); AST(SGOT) 18 U/L (15-37); Alanine Aminotransfer ALT/SGPT 15 U/L (16-61); Albumin, Serum 2.1 g/dL (3.2-5.0); Alkaline Phosphatase 34 U/L (45-117); Anion Gap 5 (5-15); BUN 28 mg/dL (7-18); BUN/Creat Ratio 37.9 RATIO (10-20); Calcium,Total 8.8 mg/dL (8.5-10.1); Chloride 109 mmol/L (98-107); Creatinine, Serum 0.74 mg/dL (0.70-1.30); EST Glomerular Filtration Rate 125 mL/min (>60); Est Glom Filt Rate - Afr Amer 152 mL/min (>60); Globulin 4.3 g/dL (2.2-4.2); Glucose 118 mg/dL (74-106); Magnesium 2.4 mg/dL (1.6-2.6); Phosphorus 3.7 mg/dL (2.5-4.9); Potassium 4.7 mmol/L (3.5-5.1); Protein, Total 6.4 g/dL (6.4-8.2); Sodium Level 144 mmol/L (136-145)
[2020-11-20] MEDS: 0.9% Saline Lock 10 ML Syringe IV (09:55)
[2020-11-20] MEDS: dexAMETHasone 10 MG/ML Vial 6 MG IV (09:56)
[2020-11-20] MEDS: Benztropine 2 MG Tablet 1 MG PO ×2 (10:01→22:40)
[2020-11-20] MEDS: clonazePAM 0.5 MG Tablet PO ×2 (10:02→17:19)
[2020-11-20] MEDS: CLOZAPINE 50 MG PO ×2 (10:04→22:52)
[2020-11-20 11:16] LABS: Bedside Glucose 155 mg/dL (70-110)
[2020-11-20] MEDS: Lactated Ringers 1,000 ML 500 ML IV (13:28)
--- NOTE | 2020-11-20 13:44 | PCM.PN.HOSP ---
Subjective Subjective Patient blood pressure is low 93/60 8 in the morning. Was 82/57 about 4 AM. Tachypneic on 6 L of oxygen. I talked to the patient's elder brother near the bedside. He has concern of withdrawal as the nighttime clozapine was held in the beginning for leukopenia and thrombocytopenia. Objective Data Objective Data Vital Signs: Vital Signs Temp Pulse Resp BP Pulse Ox 97.6 F L 74 20 H 93/68 91 11/20/20 11:00 11/20/20 11:00 11/20/20 11:00 11/20/20 11:00 11/20/20 12:37 Oxygen Flow Rate (L/min) 6 Oxygen Delivery Method Nasal Cannula Weight: 195 lb 5.273 oz Body Mass Index (BMI) 26.5 Intake & Output: Intake and Output for Last 24 Hours 11/18/20 11/19/20 11/20/20 23:59 23:59 23:59 Intake Total 450 / 450 870 / 870 440 / 440 Output Total 1400 / 1400 700 / 700 Balance -950 / -950 170 / 170 440 / 440 Lab / Micro Data Result Diagrams: 11/20/20 05:18 11/20/20 05:18 Labs: Laboratory Results - last 24 hr 11/19/20 16:43: POC Glucose 175 H 11/19/20 21:28: POC Glucose 132 H 11/20/20 05:18: WBC 5.1, RBC 3.81 L, Hgb 11.0 L, Hct 34.9 L, MCV 91.6, MCH 28.9, MCHC 31.5 L, RDW Std Deviation 54.4 H, RDW Coeff of Adrian 16.0 H, Plt Count 68 L, MPV 10.8, Immature Gran % (Auto) 0.600, Neut % (Auto) 70.1 H, Lymph % (Auto) 17.2 L, [place] % (Auto) 11.9 H, Eos % (Auto) 0.0, Baso % (Auto) 0.2, Absolute Neuts (auto) 3.5, Absolute Lymphs (auto) 0.87, Nucleated RBC % 0 11/20/20 05:18: Sodium 144, Potassium 4.7, Chloride 109 H, Carbon Dioxide 30.0, Anion Gap 5, BUN 28 H, Creatinine 0.74, Estim Creat Clear Calc 147.10, Est GFR (MDRD) Af Amer 152, Est GFR (MDRD) Non-Af 125, BUN/Creatinine Ratio 37.9 H, Glucose 118 H, Calcium 8.8, Phosphorus 3.7, Magnesium 2.4, Total Bilirubin 0.40, AST 18, ALT 15 L, Alkaline Phosphatase 34 L, Total Protein 6.4, Albumin 2.1 L, Globulin 4.3 H, Albumin/Globulin Ratio 0.5 L 11/20/20 06:22: POC Glucose 116 H 11/20/20 11:04: POC Glucose 155 H Micro: Microbiology 11/18/20 11:52 Blood Culture (Wb) - Anticubital Left Blood Culture - Preliminary No growth in 48 hours. 11/18/20 11:50 Blood Culture (Wb) - Anticubital Right Blood Culture - Preliminary No growth in 48 hours. 11/18/20 17:42 Urine, Clean Catch Legionella Antigen - Final 11/18/20 17:42 Urine, Clean Catch Streptococcus pneumoniae Antigen (M - Final 11/18/20 12:54 Urine Catheter - Catheter Urine Culture - Preliminary Culture exhibits no growth. 11/18/20 17:00 Mucosa - Nose Respiratory Panel (PCR) - Final 11/18/20 14:20 Nasal Secretion SARS-CoV-2 Antigen (Rapid) - Final SARS-CoV-2 (COVID 19) Physical Exam Narrative General: Awake, diaphoretic. Lethargy noncommunicative at baseline. HEENT: Atraumatic, PERRLA, EOMI, Normocephalic Oral: on Ventimask. Neck: Supple, No JVD, Negative Carotid Bruits Lungs: On high flow oxygen air entry diminished in bilateral lung bases. Bibasilar fine crepitations present. Cardiovascular: Regular rate, Regular Rhythm, Normal S1, Normal S2, No murmurs Abdomen: Bowel Sounds Present, Soft, Non Tender, Non-Distended : No renal angle tenderness. No suprapubic tenderness. Extremities: No edema, Capillary Refill Less than 3 Seconds Skin: No rashes, No breakdown Musculoskeletal: No Tenderness to Palpation of Joints or Extremities Neurological: Cranial nerves II-XII grossly intact, decreased cognitive status. Does not follow command at baseline Psych/Mental Status: Flat affect. Assessment & Plan Assessment/Plan (1) Acute respiratory failure with hypoxia: (2) Pneumonia due to severe acute respiratory syndrome coronavirus 2 (SARS-CoV-2): (3) Leukopenia: QUALIFIERS: Leukopenia type: lymphocytopenia Qualified Code(s): D72.810 - Lymphocytopenia (4) Thrombocytopenia: (5) Mental disability: PLAN: 1. Acute hypoxic respiratory failure secondary to acute COVID-19 pneumonia: Patient is being admitted to PCU. On 50% FiO2. On dexamethasone and remdesivir. Discussed with ID Dr. Bar Palma and he approved for baricitinib. Started on baricitinib 4 mg daily for 2 weeks. Discussed with the pharmacist. Patient is unvaccinated; symptoms started 4 days ago Chest x-ray and CTA of the chest confirmed bilateral pneumonia. No acute PE. Seen by electric meter tester shop and he agrees with the plan. 11/20: Blood culture does not show growth for 48 hours. Urine culture negative. Urinary antigens are negative. On dexamethasone, remdesivir and baricitinib 2. Pancytopenia, slightly worsened, likely secondary to acute Covid infection and also clozapine side effect. Platelet count 50,000. Will hold clozapine Will hold clozapine. Patient is put back on valproic acid 500 mg 3 times daily. Hold external Zoloft to 50 mg in the morning. 11/20: Improvement in platelet count and neutropenia. 3. Hyperglycemia, no history of diabetes: A1c 5.6%. Glucose 133. on insulin sliding scale was on Decadron 4. Bipolar disorder, on valproic acid, valproate levels increased to 106. Repeat valproic acid 101. Resume valproic acid. 5. DVT prophylaxis with SCDs on account of thrombocytopenia Total time of the visit including total time spent in counseling or coordination of care, (more than 50% of the total time, spent in obtaining medical information from nurses and other ancillary care providers,explaining to the patient about labs, imaging, diagnosis and management), discussion with the patient's brother near the bedside and ID regarding baricitinib, review of labs and imaging is 30 minutes. Microbiology Past 72 Hours 11/18/20 11:52 Blood Culture (Wb) - Anticubital Left Blood Culture - Preliminary No growth in 48 hours. 11/18/20 11:50 Blood Culture (Wb) - Anticubital Right Blood Culture - Preliminary No growth in 48 hours. 11/18/20 17:42 Urine, Clean Catch Legionella Antigen - Final 11/18/20 17:42 Urine, Clean Catch Streptococcus pneumoniae Antigen (M - Final 11/18/20 12:54 Urine Catheter - Catheter Urine Culture - Preliminary Culture exhibits no growth. 11/18/20 17:00 Mucosa - Nose Respiratory Panel (PCR) - Final 11/18/20 14:20 Nasal Secretion SARS-CoV-2 Antigen (Rapid) - Final SARS-CoV-2 (COVID 19) Clinical Impression(s) from Imaging Studies Chest X-Ray 11/18/20 12:15 IMPRESSION: Bibasilar infiltrates. Blunting of the left costophrenic angle. Chest CTA 11/18/20 12:46 IMPRESSION: Bibasilar pulmonary infiltrates. Minimal pleural effusions. Electronically Signed: Karthik Armstrong MD at 13:31 EDT , Service support , Charges/Coding Visit Charges Inpatient E&M: 72181 Subs Hosp L2
--- NOTE | 2020-11-20 14:56 | CPS ---
This RT attempted to deep suction patient, This RT and another RT unable to obtain any secretions. Darian MANCIA
[2020-11-20 17:41] LABS: Bedside Glucose 115 mg/dL (70-110)
[2020-11-20] MEDS: Dext 5%-0.45% NS 1,000 ML 50 ML IV (18:35)
[2020-11-20 21:40] LABS: Bedside Glucose 110 mg/dL (70-110)
[2020-11-21] VITALS (21 sets, daily range): BP systolic 89–108; BP diastolic 57–77; PULSE 49–76; RESP 17–50; TEMP 35.4–36.8; O2SAT 82–98
[2020-11-21] MEDS: busPIRone 15 MG TABLET PO ×3 (05:33→21:09)
[2020-11-21 05:46] LABS: Bedside Glucose 113 mg/dL (70-110)
[2020-11-21 07:43] LABS: Absolute Lymphocyte Count 1.06 X10^3/uL (0.83-4.51); Absolute Neutrophil Count 4.6 X10^3/uL (2.0-7.7); Basophil# 0.01 X10^3/uL; Basophil% 0.2 % (0-1); Hematocrit 35.6 % (40-54); Hemoglobin 11.3 g/dL (13.0-16.5); Lymphocyte # 1.06 X10^3/ul (0.83-4.51); Lymphocyte % 16.5 % (19-41); Mean Corp Hgb Conc 31.7 g/dL (32-36); Mean Corpuscular Hgb 29.4 pg (27.0-32.0); Mean Corpuscular Volume 92.5 fL (80-94); Mean Platelet Vol. 11.1 fl (6.2-12.0); Monocyte# 0.68 X10^3/uL; Monocyte% 10.6 % (0-10); NRBC Flagged by Analyzer 0 % (0-5); Neutrophil # 4.59 X10^3/uL (2.7-7.7); Neutrophil % 71.3 % (47-70); POSITIVE COUNT YES; Platelet Count 80 K/mm3 (150-450); RBC Distribution Width CV 15.9 % (11.6-14.6); RBC Distribution Width SD 54.5 fl (35.1-43.9); Red Blood Count 3.85 M/mm3 (4.6-6.2); White Blood Count 6.4 K/mm3 (4.4-11.0)
[2020-11-21 08:19] LABS: ALB/GLOB Ratio 0.5 RATIO (0.9-2.4); AST(SGOT) 17 U/L (15-37); Alanine Aminotransfer ALT/SGPT 11 U/L (16-61); Alkaline Phosphatase 32 U/L (45-117); Anion Gap 6 (5-15); BUN 21 mg/dL (7-18); BUN/Creat Ratio 35.8 RATIO (10-20); Calcium,Total 9.2 mg/dL (8.5-10.1); Chloride 108 mmol/L (98-107); Creatinine, Serum 0.59 mg/dL (0.70-1.30); EST Glomerular Filtration Rate 163 mL/min (>60); Est Glom Filt Rate - Afr Amer 198 mL/min (>60); Globulin 4.1 g/dL (2.2-4.2); Glucose 122 mg/dL (74-106); Potassium 4.5 mmol/L (3.5-5.1); Protein, Total 6.1 g/dL (6.4-8.2); Sodium Level 144 mmol/L (136-145)
--- NOTE | 2020-11-21 09:56 | PCM.PN.HOSP ---
Subjective Subjective Patient is a 40-year-old history with underlying history of learning disability as well as bipolar disorder who was brought to the emergency department with increasing shortness of breath. An assessment of acute hypoxic respiratory failure secondary to COVID-19 pneumonia made admitted to monitored bed for further management Objective Data Objective Data Vital Signs: Vital Signs Temp Pulse Resp BP Pulse Ox 97.9 F 57 L 17 104/72 97 11/21/20 05:13 11/21/20 07:20 11/21/20 05:13 11/21/20 05:13 11/21/20 05:13 Oxygen Flow Rate (L/min) 50 Oxygen Delivery Method Airvo Weight: 87.997 kg Body Mass Index (BMI) 26.5 Intake & Output: Intake and Output for Last 24 Hours 11/19/20 11/20/20 11/21/20 23:59 23:59 23:59 Intake Total 870 / 870 1919.17 / 1969.17 479.17 / 479.17 Output Total 700 / 700 1280 / 1280 Balance 170 / 170 1919.17 / 1169.17 -800.83 / -800.83 Lab / Micro Data Result Diagrams: 11/21/20 07:14 11/21/20 07:14 Labs: Laboratory Results - last 24 hr 11/20/20 11:04: POC Glucose 155 H 11/20/20 17:15: POC Glucose 115 H 11/20/20 21:34: POC Glucose 110 11/21/20 05:39: POC Glucose 113 H 11/21/20 07:14: WBC 6.4, RBC 3.85 L, Hgb 11.3 L, Hct 35.6 L, MCV 92.5, MCH 29.4, MCHC 31.7 L, RDW Std Deviation 54.5 H, RDW Coeff of Adrian 15.9 H, Plt Count 80 L, MPV 11.1, Immature Gran % (Auto) 1.400 H, Neut % (Auto) 71.3 H, Lymph % (Auto) 16.5 L, [place] % (Auto) 10.6 H, Eos % (Auto) 0.0, Baso % (Auto) 0.2, Absolute Neuts (auto) 4.6, Absolute Lymphs (auto) 1.06, Nucleated RBC % 0 11/21/20 07:14: Sodium 144, Potassium 4.5, Chloride 108 H, Carbon Dioxide 30.0, Anion Gap 6, BUN 21 H, Creatinine 0.59 L, Estim Creat Clear Calc 184.50, Est GFR (MDRD) Af Amer 198, Est GFR (MDRD) Non-Af 163, BUN/Creatinine Ratio 35.8 H, Glucose 122 H, Calcium 9.2, Total Bilirubin 0.20, AST 17, ALT 11 L, Alkaline Phosphatase 32 L, Total Protein 6.1 L, Albumin 2.0 L, Globulin 4.1, Albumin/Globulin Ratio 0.5 L Micro: Microbiology 11/18/20 12:54 Urine Catheter - Catheter Urine Culture - Final Culture exhibits no growth. 11/18/20 11:52 Blood Culture (Wb) - Anticubital Left Blood Culture - Preliminary No growth in 48 hours. 11/18/20 11:50 Blood Culture (Wb) - Anticubital Right Blood Culture - Preliminary No growth in 48 hours. 11/18/20 17:42 Urine, Clean Catch Legionella Antigen - Final 11/18/20 17:42 Urine, Clean Catch Streptococcus pneumoniae Antigen (M - Final 11/18/20 17:00 Mucosa - Nose Respiratory Panel (PCR) - Final 11/18/20 14:20 Nasal Secretion SARS-CoV-2 Antigen (Rapid) - Final SARS-CoV-2 (COVID 19) Physical Exam Narrative GENERAL: Appears ill looking, on airvo HEENT: Atraumatic; EYES; Anicteric, Normal Conjunctiva NECK; supple, normal thyroid, RESPIRATORY: Diminished to auscultation CARDIOVASCULAR: Regular S1 S2, GI: soft, normoactive bowel sounds, : No Renal angle tenderness; EXTREMITIES: No edema, no clubbing, MUSCULOSKELETAL: no muscle waisting NEURO: Awake; no lateralizing signs. SKIN: No Rash PSYCH; Flat affect Assessment & Plan Assessment/Plan (1) Acute respiratory failure with hypoxia: (2) Pneumonia due to severe acute respiratory syndrome coronavirus 2 (SARS-CoV-2): (3) Leukopenia: QUALIFIERS: Leukopenia type: lymphocytopenia Qualified Code(s): D72.810 - Lymphocytopenia (4) Thrombocytopenia: (5) Mental disability: PLAN: Patient is a 40-year-old history with underlying history of learning disability as well as bipolar disorder who was brought to the emergency department with increasing shortness of breath. An assessment of acute hypoxic respiratory failure secondary to COVID-19 pneumonia made admitted to monitored bed for further management 1. Acute hypoxic respiratory failure ?Secondary to COVID-19 pneumonia; Admitted to a monitored bed placed on noninvasive ventilation via Airvo. Patient was started on Decadron remdesivir as well as baricitinib 2. Pancytopenia ?Secondary to COVID-19 infection will monitor 3. Hyperglycemia ?Due to concomitant use of steroid patient was placed on Accu-Cheks before meals and at bedtime with sliding scale coverage 4. Bipolar disorder ?Discontinue patient psychotropic medications 5. DVT prophylaxis ?Held off initiating chemoprophylaxis in view of patient thrombocytopenia 1. Acute hypoxic respiratory failure secondary to acute COVID-19 pneumonia: Patient is being admitted to PCU. On 50% FiO2. On dexamethasone and remdesivir. Discussed with ID Dr. Bar Palma and he approved for baricitinib. Started on baricitinib 4 mg daily for 2 weeks. Discussed with the pharmacist. Patient is unvaccinated; symptoms started 4 days ago Chest x-ray and CTA of the chest confirmed bilateral pneumonia. No acute PE. Seen by transportation logistics internship and he agrees with the plan. 103: Blood culture does not show growth for 48 hours. Urine culture negative. Urinary antigens are negative. On dexamethasone, remdesivir and baricitinib 2. Pancytopenia, slightly worsened, likely secondary to acute Covid infection and also clozapine side effect. Platelet count 50,000. Will hold clozapine Will hold clozapine. Patient is put back on valproic acid 500 mg 3 times daily. Hold external Zoloft to 50 mg in the morning. 10/3: Improvement in platelet count and neutropenia. 3. Hyperglycemia, no history of diabetes: A1c 5.6%. Glucose 133. on insulin sliding scale was on Decadron 4. Bipolar disorder, on valproic acid, valproate levels increased to 106. Repeat valproic acid 101. Resume valproic acid. 5. DVT prophylaxis with SCDs on account of thrombocytopenia Charges/Coding Visit Charges Inpatient E&M: 98331 Subs Hosp L3
[2020-11-21] MEDS: Benztropine 2 MG Tablet 1 MG PO ×2 (10:06→21:09)
[2020-11-21] MEDS: clonazePAM 0.5 MG Tablet PO ×3 (10:07→21:08)
[2020-11-21] MEDS: dexAMETHasone 10 MG/ML Vial 6 MG IV (10:07)
[2020-11-21] MEDS: CLOZAPINE 50 MG PO (10:17)
[2020-11-21 11:10] LABS: Bedside Glucose 106 mg/dL (70-110)
--- NOTE | 2020-11-21 13:40 | CON.PCM.ID_ITS ---
Assessment & Plan Assessment/Plan (1) Mental disability: (2) Pneumonia due to severe acute respiratory syndrome coronavirus 2 (SARS-CoV-2): PLAN: Sx noticed 11/16. On dex, remdesivir, baricitinib. CT neg for PE. Isolate for 20 days from 11/16. Recommend vaccine if he has not gotten it. Will follow, thank you (3) Acute respiratory failure with hypoxia: HPI Consult Data Date of Consult: 11/21/20 HPI Narrative HPI Narrative: CELESTE HOOK, is a 40 M who presented 11/18 with 3 days of fever, cough, not feeling well. Has MRDD. Taken to ED, covid (+), admitted on dex, remdesivir, baricitinib. Remains on airvo. History from his brother at bedside; brother feels fine, has not been tested. ROS unobtainable due to mental status. [facility] Medical History Bipolar 1 disorder Mental disability Home Medications Clonazepam 0.5 mg PO BID 04/18/18 [History Last Taken 11/18/20] benztropine 1 mg PO BID 04/18/18 [History Last Taken 11/18/20] buspirone 15 mg PO TID 04/18/18 [History Last Taken 11/18/20] clozapine 50 mg PO DAILY 04/18/18 [History Last Taken 11/18/20] clozapine 100 mg PO QHS 04/18/18 [History Last Taken 11/17/20] divalproex 500 mg PO TID 04/18/18 [History Last Taken 11/18/20] divalproex 250 mg PO BREAKFAST 07/17/18 [History Last Taken 11/18/20] Allergy/AdvReac Type Severity Reaction Status Date / Time No Known Allergies Allergy Verified 07/17/18 12:02 Family History no significant family his Surgical History no surgical history Social History (Updated 11/18/20 @ 19:[address] Luz Maria Auguste MD) household members: family Smoking Status: Never smoker alcohol intake: never Physical Exam Const no apparent distress General Appearance: lethargic Exam Limitations: behavioral limitations HEENT normocephalic and head/scalp atraumatic Eyes PERRL and EOMs intact bilaterally Neck supple and No nodes Resp Auscultation: diminished lung sounds Cardio regular rate and regular rhythm GI normal to inspection, nondistended, normoactive bowel sounds Extremity no clubbing, cyanosis or edema Skin no rashes or lesions noted Neuro CN's II-XII intact bilaterally Lab / Micro Data Result Diagrams: 11/21/20 07:14 11/21/20 07:14 Labs: Laboratory Results - last 24 hr 11/20/20 17:15: POC Glucose 115 H 11/20/20 21:34: POC Glucose 110 11/21/20 05:39: POC Glucose 113 H 11/21/20 07:14: WBC 6.4, RBC 3.85 L, Hgb 11.3 L, Hct 35.6 L, MCV 92.5, MCH 29.4, MCHC 31.7 L, RDW Std Deviation 54.5 H, RDW Coeff of Adrian 15.9 H, Plt Count 80 L, MPV 11.1, Immature Gran % (Auto) 1.400 H, Neut % (Auto) 71.3 H, Lymph % (Auto) 16.5 L, [place] % (Auto) 10.6 H, Eos % (Auto) 0.0, Baso % (Auto) 0.2, Absolute Neuts (auto) 4.6, Absolute Lymphs (auto) 1.06, Nucleated RBC % 0 11/21/20 07:14: Sodium 144, Potassium 4.5, Chloride 108 H, Carbon Dioxide 30.0, Anion Gap 6, BUN 21 H, Creatinine 0.59 L, Estim Creat Clear Calc 184.50, Est GFR (MDRD) Af Amer 198, Est GFR (MDRD) Non-Af 163, BUN/Creatinine Ratio 35.8 H, Glucose 122 H, Calcium 9.2, Total Bilirubin 0.20, AST 17, ALT 11 L, Alkaline Phosphatase 32 L, Total Protein 6.1 L, Albumin 2.0 L, Globulin 4.1, Albumin/Globulin Ratio 0.5 L 11/21/20 10:32: POC Glucose 106 Micro: Microbiology 11/18/20 12:54 Urine Catheter - Catheter Urine Culture - Final Culture exhibits no growth. 11/18/20 11:52 Blood Culture (Wb) - Anticubital Left Blood Culture - Pr eliminary No growth in 48 hours. 11/18/20 11:50 Blood Culture (Wb) - Anticubital Right Blood Culture - Preliminary No growth in 48 hours.
[2020-11-21 14:42] LABS: Pathologist Review Reviewed
[2020-11-21 14:51] LABS: Pathologist Review Reviewed
[2020-11-21 18:05] LABS: Bedside Glucose 121 mg/dL (70-110)
[2020-11-21] MEDS: Dext 5%-0.45% NS 1,000 ML 50 ML IV (21:03)
[2020-11-21] MEDS: guaiFENesin/D-Methorphan TAB.SR.12H 1 TABLET PO (21:09)
--- NOTE | 2020-11-21 22:23 | CPS ---
AirVo with 15L NRB overtop
[2020-11-21 22:30] LABS: Bedside Glucose 115 mg/dL (70-110)
[2020-11-22] VITALS (22 sets, daily range): BP systolic 96–108; BP diastolic 47–80; PULSE 48–71; RESP 18–32; TEMP 36.2–36.8; O2SAT 91–96
--- NOTE | 2020-11-22 04:14 | CPS ---
NRB was removed to try patient just on AirVo
[2020-11-22] MEDS: busPIRone 15 MG TABLET PO ×3 (06:14→22:31)
[2020-11-22] MEDS: Acetaminophen 325 MG Tablet 650 MG PO (06:25)
[2020-11-22 06:55] LABS: Bedside Glucose 94 mg/dL (70-110)
[2020-11-22 07:07] LABS: Absolute Neutrophil Count 4.4 X10^3/uL (2.0-7.7); Basophil# 0.02 X10^3/uL; Basophil% 0.3 % (0-1); Hemoglobin 12.3 g/dL (13.0-16.5); Lymphocyte % 17.6 % (19-41); Mean Corp Hgb Conc 31.5 g/dL (32-36); Mean Corpuscular Hgb 28.6 pg (27.0-32.0); Mean Corpuscular Volume 90.7 fL (80-94); Mean Platelet Vol. 10.9 fl (6.2-12.0); Monocyte# 0.67 X10^3/uL; Monocyte% 10.7 % (0-10); NRBC Flagged by Analyzer 0 % (0-5); Neutrophil # 4.35 X10^3/uL (2.7-7.7); Neutrophil % 69.5 % (47-70); POSITIVE COUNT YES; Platelet Count 96 K/mm3 (150-450); RBC Distribution Width CV 15.7 % (11.6-14.6); RBC Distribution Width SD 52.4 fl (35.1-43.9); White Blood Count 6.3 K/mm3 (4.4-11.0)
--- NOTE | 2020-11-22 07:35 | PN.HOSP_ITS ---
Subjective Subjective Patient seen still appears ill looking on high flow oxygen. Patient is on Klonopin held during the night in view of bradycardia and hypotension. Appears quite agitated this a.m. Per patient's brother primary mergers and acquisitions manager patient has not had a bowel movement in 4 days. Patient subsequently started on MiraLAX Objective Data Objective Data Vital Signs: Vital Signs Temp Pulse Resp BP Pulse Ox 97.2 F L 55 L 21 H 98/67 94 11/22/20 03:44 11/22/20 07:26 11/22/20 07:26 11/22/20 03:44 11/22/20 07:27 Oxygen Flow Rate (L/min) 15 Oxygen Delivery Method Non-Rebreather Weight: 87.997 kg Body Mass Index (BMI) 26.5 Intake & Output: Intake and Output for Last 24 Hours 11/20/20 11/21/20 11/22/20 23:59 23:59 23:59 Intake Total 1918. / 1968.17 1315.83 / 1315.83 / 55 Output Total 1979 Balance 1919.17 / 1169.17 -664.17 / -664.17 55 / 55 Lab / Micro Data Result Diagrams: 11/22/20 06:35 11/22/20 06:35 Labs: Laboratory Results - last 24 hr 11/18/20 11:50: Diff Path Review Reviewed 11/19/20 06:40: Diff Path Review Reviewed 11/21/20 07:14: WBC 6.4, RBC 3.85 L, Hgb 11.3 L, Hct 35.6 L, MCV 92.5, MCH 29.4, MCHC 31.7 L, RDW Std Deviation 54.5 H, RDW Coeff of Adrian 15.9 H, Plt Count 80 L, MPV 11.1, Immature Gran % (Auto) 1.400 H, Neut % (Auto) 71.3 H, Lymph % (Auto) 16.5 L, [place] % (Auto) 10.6 H, Eos % (Auto) 0.0, Baso % (Auto) 0.2, Absolute Neuts (auto) 4.6, Absolute Lymphs (auto) 1.06, Nucleated RBC % 0 11/21/20 07:14: Sodium 144, Potassium 4.5, Chloride 108 H, Carbon Dioxide 30.0, Anion Gap 6, BUN 21 H, Creatinine 0.59 L, Estim Creat Clear Calc 184.50, Est GFR (MDRD) Af Amer 198, Est GFR (MDRD) Non-Af 163, BUN/Creatinine Ratio 35.8 H, Glucose 122 H, Calcium 9.2, Total Bilirubin 0.20, AST 17, ALT 11 L, Alkaline Kenny sphatase 32 L, Total Protein 6.1 L, Albumin 2.0 L, Globulin 4.1, Albumin/Globulin Ratio 0.5 L 11/21/20 10:32: POC Glucose 106 11/21/20 15:24: POC Glucose 121 H 11/21/20 20:54: POC Glucose 115 H 11/22/20 06:13: POC Glucose 94 11/22/20 06:35: WBC 6.3, RBC 4.30 L, Hgb 12.3 L, Hct 39.0 L, MCV 90.7, MCH 28.6, MCHC 31.5 L, RDW Std Deviation 52.4 H, RDW Coeff of Adrian 15.7 H, Plt Count 96 L, MPV 10.9, Immature Gran % (Auto) 1.900 H, Neut % (Auto) 69.5, Lymph % (Auto) 17.6 L, [place] % (Auto) 10.7 H, Eos % (Auto) 0.0, Baso % (Auto) 0.3, Absolute Neuts (auto) 4.4, Absolute Lymphs (auto) 1.10, Nucleated RBC % 0 Micro: Microbiology 11/18/20 12:54 Urine Catheter - Catheter Urine Culture - Final Culture exhibits no growth. 11/18/20 11:52 Blood Culture (Wb) - Anticubital Left Blood Culture - Preliminary No growth in 48 hours. 11/18/20 11:50 Blood Culture (Wb) - Anticubital Right Blood Culture - Preliminary No growth in 48 hours. 11/18/20 17:42 Urine, Clean Catch Legionella Antigen - Final 11/18/20 17:42 Urine, Clean Catch Streptococcus pneumoniae Antigen (M - Fin al 11/18/20 17:00 Mucosa - Nose Respiratory Panel (PCR) - Final 11/18/20 14:20 Nasal Secretion SARS-CoV-2 Antigen (Rapid) - Final SARS-CoV-2 (COVID 19) Physical Exam Narrative GENERAL: Appears ill looking, on airvo HEENT: Atraumatic; EYES; Anicteric, Normal Conjunctiva NECK; supple, normal thyroid, RESPIRATORY: Diminished to auscultation CARDIOVASCULAR: Regular S1 S2, GI: soft, normoactive bowel sounds, : No Renal angle tenderness; EXTREMITIES: No edema, no clubbing, MUSCULOSKELETAL: no muscle waisting NEURO: Awake; no lateralizing signs. SKIN: No Rash PSYCH; Flat affect Assessment & Plan Assessment/Plan (1) Acute respiratory failure with hypoxia: (2) Pneumonia due to severe acute respiratory syndrome coronavirus 2 (SARS-CoV-2): (3) Leukopenia: QUALIFIERS: Leukopenia type: lymphocytopenia Qualified Code(s): D72.810 - Lymphocytopenia (4) Thrombocytopenia: (5) Mental disability: PLAN: Patient is a 40-year-old history with underlying history of learning disability as well as bipolar disorder who was brought to the emergency department with increasing shortness of breath. An assessment of acute hypoxic respiratory failure secondary to COVID-19 pneumonia made admitted to monitored bed for further management 1. Acute hypoxic respiratory failure ?Secondary to COVID-19 pneumonia; Admitted to a monitored bed placed on noninvasive ventilation via Airvo. Patient was started on Decadron remdesivir as well as baricitinib -11/22/2020 still requiring high flow oxygen 2. Pancytopenia ?Secondary to COVID-19 infection will monitor 3. Hyperglycemia ?Due to concomitant use of steroid patient was placed on Accu-Cheks before meals and at bedtime with sliding scale coverage 4. Bipolar disorder ?Discontinue patient psychotropic medications 5. DVT prophylaxis ?Held off initiating chemoprophylaxis in view of patient thrombocytopenia 6. Constipation ?Patient started on MiraLAX Charges/Coding Visit Charges Inpatient E&M: 54830 Subs Hosp L3
[2020-11-22 07:55] LABS: ALB/GLOB Ratio 0.4 RATIO (0.9-2.4); AST(SGOT) 19 U/L (15-37); Alanine Aminotransfer ALT/SGPT 14 U/L (16-61); Alkaline Phosphatase 41 U/L (45-117); Anion Gap 8 (5-15); BUN 23 mg/dL (7-18); BUN/Creat Ratio 37.5 RATIO (10-20); Calcium,Total 8.9 mg/dL (8.5-10.1); Chloride 107 mmol/L (98-107); Creatinine, Serum 0.61 mg/dL (0.70-1.30); EST Glomerular Filtration Rate 155 mL/min (>60); Est Glom Filt Rate - Afr Amer 188 mL/min (>60); Estimated Creatinine Clearance 178.45 ml/min; Globulin 4.8 g/dL (2.2-4.2); Glucose 97 mg/dL (74-106); Magnesium 2.3 mg/dL (1.6-2.6); Potassium 4.7 mmol/L (3.5-5.1); Protein, Total 6.8 g/dL (6.4-8.2); Sodium Level 141 mmol/L (136-145)
[2020-11-22] MEDS: Polyethylene Glycol 3350 17 GM PACKET PO (09:54)
[2020-11-22] MEDS: guaiFENesin/D-Methorphan TAB.SR.12H 1 TABLET PO ×2 (09:55→22:31)
[2020-11-22] MEDS: CLOZAPINE 50 MG PO ×2 (09:56→22:33)
[2020-11-22] MEDS: dexAMETHasone 10 MG/ML Vial 6 MG IV (09:57)
[2020-11-22] MEDS: Benztropine 2 MG Tablet 1 MG PO ×2 (09:57→22:31)
[2020-11-22] MEDS: 0.9% Saline Lock 10 ML Syringe IV (09:58)
--- NOTE | 2020-11-22 11:41 | PCM.PN.INT ---
Assessment & Plan Assessment/Plan (1) Pneumonia due to severe acute respiratory syndrome coronavirus 2 (SARS-CoV-2): (2) Acute respiratory failure with hypoxia: (3) Thrombocytopenia: (4) Mental disability: PLAN: RECOMMENDATIONS: 1. Continue Decadron. Remdesivir is completed. 2. Continue baricitinib to complete treatment course. 3. Wean FiO2 to maintain oxygen saturations at or above 90%. 4. Lasix, as needed, to maintain euvolemic state. IMPRESSIONS: 1. Acute hypoxic respiratory failure secondary to COVID-19 pneumonia The patient is currently tolerating heated high flow oxygen, but has extensive infiltrates noted on CT of the chest. The patient has completed a treatment course of remdesivir and remains on Decadron and baricitinib. Continue to wean FiO2 as tolerated to maintain saturations at or above 90%. Continue as needed Lasix to maintain euvolemic state. 2. Pancytopenia Unclear etiology. This may be secondary to medications or viral illness. No indication for transfusion at this time, but would continue to follow on a daily basis. 3. Bipolar disorder/MRDD/hyperglycemia Complicates care, management, recovery and prognosis. Valproate levels appear to be appropriate. Patient is a DNR Comfort Care arrest without intubation. This note was generated with [employer] dictation software. It may contain incorrect words, spelling, and punctuation that were not noted in checking the note before signing. Subjective Subjective The patient was seen and examined at the bedside this morning. Events from the last 24 hours have been reviewed. The patient is currently afebrile, hemodynamically stable and maintaining appropriate oxygen saturations on Airvo heated high flow with an FiO2 requirement of 88% and flow rate of 60 L/min. The patient is currently documented to be overall net +1.1 L for the hospitalization. He remains on remdesivir, Decadron and baricitinib. Platelet count is improved to 96,000. Creatinine and liver function are stable. Objective Data Objective Data The patient's most recent lab work, culture data and imaging studies have all been personally reviewed. Rapid coronavirus antigen testing was positive on November 18. Respiratory viral panel was negative. Strep and urine Legionella antigens were negative. Vital Signs: Vital Signs Temp Pulse Resp BP Pulse Ox 97.9 F 66 18 104/71 91 11/22/20 10:00 11/22/20 11:05 11/22/20 10:00 11/22/20 10:00 11/22/20 10:00 Oxygen Flow Rate (L/min) 15 Oxygen Delivery Method Airvo Weight: 87.997 kg Body Mass Index (BMI) 26.5 Intake & Output: Intake and Output for Last 24 Hours 11/20/20 11/21/20 11/22/20 23:59 23:59 23:59 Intake Total 191.17 / 1969.17 1315.83 / 1315.83 698.33 / 698.33 Output Total 1979 Balance 1919.17 / 1169.17 -664.17 / -664.17 698.33 / 698.33 Lab / Micro Data Attestation: I reviewed the patient's lab results. Result Diagrams: 11/22/20 06:35 11/22/20 06:35 Labs: Laboratory Results - last 24 hr 11/18/20 11:50: Diff Path Review Reviewed 11/19/20 06:40: Diff Path Review Reviewed 11/21/20 15:24: POC Glucose 121 H 11/21/20 20:54: POC Glucose 115 H 11/22/20 06:13: POC Glucose 94 11/22/20 06:35: WBC 6.3, RBC 4.30 L, Hgb 12.3 L, Hct 39.0 L, MCV 90.7, MCH 28.6, MCHC 31.5 L, RDW Std Deviation 52.4 H, RDW Coeff of Adrian 15.7 H, Plt Count 96 L, MPV 10.9, Immature Gran % (Auto) 1.900 H, Neut % (Auto) 69.5, Lymph % (Auto) 17.6 L, [place] % (Auto) 10.7 H, Eos % (Auto) 0.0, Baso % (Auto) 0.3, Absolute Neuts (auto) 4.4, Absolute Lymphs (auto) 1.10, Nucleated RBC % 0 11/22/20 06:35: Sodium 141, Potassium 4.7, Chloride 107, Carbon Dioxide 26.0, Anion Gap 8, BUN 23 H, Creatinine 0.61 L, Estim Creat Clear Calc 178.45, Est GFR (MDRD) Af Amer 188, Est GFR (MDRD) Non-Af 155, BUN/Creatinine Ratio 37.5 H, Glucose 97, Calcium 8.9, Magnesium 2.3, Total Bilirubin 0.40, AST 19, ALT 14 L, Alkaline Phosphatase 41 L, Total Protein 6.8, Albumin 2.0 L, Globulin 4.8 H, Albumin/Globulin Ratio 0.4 L Micro: Microbiology 11/18/20 12:54 Urine Catheter - Catheter Urine Culture - Final Culture exhibits no growth. 11/18/20 11:52 Blood Culture (Wb) - Anticubital Left Blood Culture - Preliminary No growth in 48 hours. 11/18/20 11:50 Blood Culture (Wb) - Anticubital Right Blood Culture - Preliminary No growth in 48 hours. 11/18/20 17:42 Urine, Clean Catch Legionella Antigen - Final 11/18/20 17:42 Urine, Clean Catch Streptococcus pneumoniae Antigen (M - Final 11/18/20 17:00 Mucosa - Nose Respiratory Panel (PCR) - Final 11/18/20 14:20 Nasal Secretion SARS-CoV-2 Antigen (Rapid) - Final SARS-CoV-2 (COVID 19) Physical Exam Const alert and no apparent distress General Appearance: cooperative HEENT head/scalp atraumatic and moist oral mucous membranes; Negative for normocephalic Eyes PERRL and EOMs intact bilaterally Neck supple General: trachea midline Chest inspection of chest normal Resp Effort and Inspection: tachypneic Auscultation: diminished lung sounds; Negative for rales, rhonchi or wheezes Cardio regular rate and regular rhythm GI normal to inspection, nondistended, normoactive bowel sounds Extremity no clubbing, cyanosis or edema Skin no rashes or lesions noted Neuro no focal motor deficits Psych Mood & Affect: flat affect Charges/Coding Visit Charges Inpatient E&M: 05467 Subs Hosp L2
[2020-11-22 16:00] LABS: Bedside Glucose 102 mg/dL (70-110)
[2020-11-22] MEDS: clonazePAM 0.5 MG Tablet PO (17:41)
[2020-11-22 18:30] LABS: Bedside Glucose 109 mg/dL (70-110)
[2020-11-22 22:50] LABS: Bedside Glucose 121 mg/dL (70-110)
[2020-11-23] VITALS (14 sets, daily range): BP systolic 91–108; BP diastolic 61–77; PULSE 46–72; RESP 18–26; TEMP 36.3–36.7; O2SAT 91–98
[2020-11-23] MEDS: Dext 5%-0.45% NS 1,000 ML 50 ML IV ×2 (03:35→23:11)
[2020-11-23] MEDS: busPIRone 15 MG TABLET PO ×3 (06:35→20:55)
[2020-11-23 06:40] LABS: Hematocrit 36.8 % (40-54); Mean Corp Hgb Conc 32.6 g/dL (32-36); Mean Corpuscular Hgb 29.3 pg (27.0-32.0); Mean Corpuscular Volume 89.8 fL (80-94); Mean Platelet Vol. 10.9 fl (6.2-12.0); POSITIVE COUNT YES; POSITIVE MORPHOLOGY YES; Platelet Count 95 K/mm3 (150-450); RBC Distribution Width CV 15.3 % (11.6-14.6); RBC Distribution Width SD 50.8 fl (35.1-43.9); White Blood Count 4.9 K/mm3 (4.4-11.0)
[2020-11-23 06:55] LABS: Bedside Glucose 104 mg/dL (70-110)
[2020-11-23 07:00] LABS: Differential Indicated MANUAL DIFF
[2020-11-23 07:01] LABS: Scan Smear per Review Criteria MANUAL DIFF
[2020-11-23 07:05] LABS: ALB/GLOB Ratio 0.5 RATIO (0.9-2.4); AST(SGOT) 14 U/L (15-37); Absolute Neutrophil Count 3.3 X10^3/uL (2.0-7.7); Alanine Aminotransfer ALT/SGPT 14 U/L (16-61); Albumin, Serum 1.9 g/dL (3.2-5.0); Alkaline Phosphatase 35 U/L (45-117); Anion Gap 4 (5-15); BUN 23 mg/dL (7-18); BUN/Creat Ratio 39.3 RATIO (10-20); Calcium,Total 8.9 mg/dL (8.5-10.1); Chloride 106 mmol/L (98-107); Creatinine, Serum 0.58 mg/dL (0.70-1.30); EST Glomerular Filtration Rate 164 mL/min (>60); Est Glom Filt Rate - Afr Amer 198 mL/min (>60); Estimated Creatinine Clearance 187.68 ml/min; Globulin 4.1 g/dL (2.2-4.2); Glucose 110 mg/dL (74-106); Potassium 4.5 mmol/L (3.5-5.1); Sodium Level 140 mmol/L (136-145)
[2020-11-23 07:06] LABS: Absolute Lymphocyte Count 0.84 X10^3/uL (0.83-4.51); Lymphocyte 17 % (19-41); Metamyelocyte 2 % (0-1); Myelocyte 2 % (0-0); Neutrophil-Band 13 % (0-5); Neutrophil-Segmented 54 % (47-70); Promyelocyte 3 % (0-0)
[2020-11-23 07:07] LABS: Monocyte 9 % (0-10)
[2020-11-23 07:08] LABS: Platelet Estimate MOD DEC (ADEQ); Red Cell Morphology NORM C+C NORMAL (NORM C&C)
--- NOTE | 2020-11-23 07:49 | PN.HOSP_ITS ---
Subjective Subjective No significant change in patient's clinical condition. Still remains hypoxic. Update was given to patient's brother who was in the room Objective Data Objective Data Vital Signs: Vital Signs Temp Pulse Resp BP Pulse Ox 97.3 F L 66 18 93/62 91 11/23/20 05:00 11/23/20 07:36 11/23/20 07:36 11/23/20 05:00 11/23/20 07:36 Oxygen Flow Rate (L/min) 15 Oxygen Delivery Method Airvo Weight: 87.8 kg Body Mass Index (BMI) 26.5 Intake & Output: Intake and Output for Last 24 Hours 11/21/20 11/22/20 11/23/20 23:59 23:59 23:59 Intake Total 1315.83 / 1315.83 1058.33 / 1058.33 356.67 / 356.67 Output Total 1979 / 1979 Balance -664.17 / -664.17 1058.33 / 1058.33 356.67 / 356.67 Lab / Micro Data Result Diagrams: 11/23/20 06:03 11/23/20 06:03 Labs: Laboratory Results - last 24 hr 11/22/20 06:35: Sodium 141, Potassium 4.7, Chloride 107, Carbon Dioxide 26.0, Anion Gap 8, BUN 23 H, Creatinine 0.61 L, Estim Creat Clear Calc 178.45, Est GFR (MDRD) Af Amer 188, Est GFR (MDRD) Non-Af 155, BUN/Creatinine Ratio 37.5 H, Glucose 97, Calcium 8.9, Magnesium 2.3, Total Bilirubin 0.40, AST 19, ALT 14 L, Alkaline Phosphatase 41 L, Total Protein 6.8, Albumin 2.0 L, Globulin 4.8 H, Albumin/Globulin Ratio 0.4 L 11/22/20 13:45: POC Glucose 102 11/22/20 17:38: POC Glucose 109 11/22/20 22:27: POC Glucose 121 H 11/23/20 06:03: WBC 4.9, RBC 4.10 L, Hgb 12.0 L, Hct 36.8 L, MCV 89.8, MCH 29.3, MCHC 32.6, RDW Std Deviation 50.8 H, RDW Coeff of Adrian 15.3 H, Plt Count 95 L, MPV 10.9, Immature Gran % (Auto) DIE MAKER STAMPING, Neut % (Auto) DIE MAKER STAMPING, Lymph % (Auto) DIE MAKER STAMPING, [place] % (Auto) DIE MAKER STAMPING, Eos % (Auto) DIE MAKER STAMPING, Baso % (Auto) DIE MAKER STAMPING, Absolute Neuts (auto) 3.3, Absolute Lymphs (auto) 0.84, Neutrophils % (Manual) 54, Band Neutrophils % 13 H, Lymphocytes % (Manual) 17 L, Monocytes % (Manual) 9, Metamyelocytes % 2 H, Myelocytes % 2 H, Promyelocytes % 3 H, Nucleated RBC % DIE MAKER STAMPING, Diff Path Review May foll, Platelet Estimate MOD DEC, RBC Morphology NORM C+C 11/23/20 06:03: Sodium 140, Potassium 4.5, Chloride 106, Carbon Dioxide 30.0, Anion Gap 4 L, BUN 23 H, Creatinine 0.58 L, Estim Creat Clear Calc 187.68, Est GFR (MDRD) Af Amer 198, Est GFR (MDRD) Non-Af 164, BUN/Creatinine Ratio 39.3 H, Glucose 110 H, Calcium 8.9, Total Bilirubin 0.30, AST 14 L, ALT 14 L, Alkaline Phosphatase 35 L, Total Protein 6.0 L, Albumin 1.9 L, Globulin 4.1, Albumin/Globulin Ratio 0.5 L 11/23/20 06:33: POC Glucose 104 Micro: Microbiology 11/18/20 12:54 Urine Catheter - Catheter Urine Culture - Final Culture exhibits no growth. 11/18/20 11:52 Blood Culture (Wb) - Anticubital Left Blood Culture - Preliminary No growth in 48 hours. 11/18/20 11:50 Blood Culture (Wb) - Anticubital Right Blood Culture - Preliminary No growth in 48 hours. 11/18/20 17:42 Urine, Clean Catch Legionella Antigen - Final 11/18/20 17:42 Urine, Clean Catch Streptococcus pneumoniae Antigen (M - Final 11/18/20 17:00 Mucosa - Nose Respiratory Panel (PCR) - Final 11/18/20 14:20 Nasal Secretion SARS-CoV-2 Antigen (Rapid) - Final SARS-CoV-2 (COVID 19) Physical Exam Narrative GENERAL: Appears ill looking, on airvo HEENT: Atraumatic; EYES; Anicteric, Normal Conjunctiva NECK; supple, normal thyroid, RESPIRATORY: Diminished to auscultation CARDIOVASCULAR: Regular S1 S2, GI: soft, normoactive bowel sounds, : No Renal angle tenderness; EXTREMITIES: No edema, no clubbing, MUSCULOSKELETAL: no muscle waisting NEURO: Awake; no lateralizing signs. SKIN: No Rash PSYCH; Flat affect Assessment & Plan Assessment/Plan (1) Acute respiratory failure with hypoxia: (2) Pneumonia due to severe acute respiratory syndrome coronavirus 2 (SARS-CoV-2): (3) Leukopenia: QUALIFIERS: Leukopenia type: lymphocytopenia Qualified Code(s): D72.810 - Lymphocytopenia (4) Thrombocytopenia: (5) Mental disability: PLAN: Patient is a 40-year-old history with underlying history of learning disability as well as bipolar disorder who was brought to the emergency department with increasing shortness of breath. An assessment of acute hypoxic respiratory failure secondary to COVID-19 pneumonia made admitted to monitored bed for further management 1. Acute hypoxic respiratory failure ?Secondary to COVID-19 pneumonia; Admitted to a monitored bed placed on noninvasive ventilation via Airvo. Patient was started on Decadron remdesivir as well as baricitinib -11/22/2020 still requiring high flow oxygen -11/23/2020; No significant change in patient's clinical condition. Still remains hypoxic. Update was given to patient's brother who was in the room 2. Pancytopenia ?Secondary to COVID-19 infection will monitor 3. Hyperglycemia ?Due to concomitant use of steroid patient was placed on Accu-Cheks before meals and at bedtime with sliding scale coverage 4. Bipolar disorder ?Discontinue patient psychotropic medications 5. DVT prophylaxis ?Held off initiating chemoprophylaxis in view of patient thrombocytopenia 6. Constipation ?Patient started on MiraLAX Charges/Coding Visit Charges Inpatient E&M: 87788 Subs Hosp L2
[2020-11-23] MEDS: dexAMETHasone 10 MG/ML Vial 6 MG IV (09:13)
[2020-11-23] MEDS: guaiFENesin/D-Methorphan TAB.SR.12H 1 TABLET PO ×2 (09:13→20:55)
[2020-11-23] MEDS: clonazePAM 0.5 MG Tablet PO ×2 (11:13→16:38)
[2020-11-23] MEDS: Benztropine 2 MG Tablet 1 MG PO ×2 (11:13→20:55)
[2020-11-23] MEDS: Polyethylene Glycol 3350 17 GM PACKET PO (11:14)
[2020-11-23 11:55] LABS: Bedside Glucose 112 mg/dL (70-110)
[2020-11-23 12:39] LABS: Pathologist Review Reviewed
[2020-11-23 16:45] LABS: Bedside Glucose 116 mg/dL (70-110)
[2020-11-23] MEDS: CLOZAPINE 50 MG PO (20:55)
[2020-11-23 21:21] LABS: Bedside Glucose 113 mg/dL (70-110)
[2020-11-23] MEDS: Acetaminophen 325 MG Tablet 650 MG PO (23:17)
[2020-11-24] VITALS (18 sets, daily range): BP systolic 82–101; BP diastolic 54–77; PULSE 46–83; RESP 18–31; TEMP 36.1–36.8; O2SAT 90–98
[2020-11-24] MEDS: busPIRone 15 MG TABLET PO ×3 (06:13→20:01)
[2020-11-24 06:31] LABS: Bedside Glucose 85 mg/dL (70-110)
[2020-11-24 06:52] LABS: Hematocrit 37.9 % (40-54); Hemoglobin 12.4 g/dL (13.0-16.5); Mean Corp Hgb Conc 32.7 g/dL (32-36); Mean Corpuscular Hgb 28.8 pg (27.0-32.0); Mean Corpuscular Volume 88.1 fL (80-94); Mean Platelet Vol. 10.7 fl (6.2-12.0); POSITIVE COUNT YES; POSITIVE MORPHOLOGY YES; Platelet Count 105 K/mm3 (150-450); RBC Distribution Width CV 15.3 % (11.6-14.6); RBC Distribution Width SD 49.2 fl (35.1-43.9); White Blood Count 4.8 K/mm3 (4.4-11.0)
[2020-11-24 06:58] LABS: Differential Indicated MANUAL DIFF
[2020-11-24 07:27] LABS: ALB/GLOB Ratio 0.5 RATIO (0.9-2.4); AST(SGOT) 16 U/L (15-37); Alanine Aminotransfer ALT/SGPT 14 U/L (16-61); Alkaline Phosphatase 36 U/L (45-117); Anion Gap 5 (5-15); BUN 24 mg/dL (7-18); BUN/Creat Ratio 44.3 RATIO (10-20); Calcium,Total 8.9 mg/dL (8.5-10.1); Chloride 106 mmol/L (98-107); Creatinine, Serum 0.54 mg/dL (0.70-1.30); EST Glomerular Filtration Rate 179 mL/min (>60); Est Glom Filt Rate - Afr Amer 217 mL/min (>60); Estimated Creatinine Clearance 201.58 ml/min; Globulin 4.4 g/dL (2.2-4.2); Glucose 95 mg/dL (74-106); Potassium 4.3 mmol/L (3.5-5.1); Protein, Total 6.4 g/dL (6.4-8.2); Sodium Level 138 mmol/L (136-145)
[2020-11-24 08:02] LABS: Lymphocyte 17 % (19-41); Metamyelocyte 7 % (0-1); Monocyte 16 % (0-10); Myelocyte 4 % (0-0); Neutrophil-Segmented 56 % (47-70); Total Cells Counted 100 (MANUAL DIFF)
[2020-11-24 08:03] LABS: Absolute Neutrophil Count 2.7 X10^3/uL (2.0-7.7); Platelet Estimate SLT DEC (ADEQ); Red Cell Morphology NORM C+C NORMAL (NORM C&C)
[2020-11-24] MEDS: clonazePAM 0.5 MG Tablet PO ×2 (10:13→17:06)
[2020-11-24] MEDS: Ascorbic Acid 500 MG Tablet PO (10:13)
[2020-11-24] MEDS: CLOZAPINE 50 MG PO (10:13)
[2020-11-24] MEDS: Benztropine 2 MG Tablet 1 MG PO ×2 (10:13→20:01)
[2020-11-24] MEDS: dexAMETHasone 10 MG/ML Vial 6 MG IV (10:13)
[2020-11-24] MEDS: guaiFENesin/D-Methorphan TAB.SR.12H 1 TABLET PO ×2 (10:14→20:01)
[2020-11-24] MEDS: Cholecalciferol (VIT D3) 25 MCG TABLET (1,000 UNITS) PO (10:15)
--- NOTE | 2020-11-24 12:02 | PCM.PN.HOSP ---
Subjective Subjective Patient still remains restless making his care very challenging. Did adjust patient psychotropic medications to match his home regimen. Updated patient's brother is primary janitor caretaker Objective Data Objective Data Vital Signs: Vital Signs Temp Pulse Resp BP Pulse Ox 97.5 F L 56 L 20 H 97/73 98 11/24/20 09:00 11/24/20 09:00 11/24/20 09:00 11/24/20 11:45 11/24/20 09:00 Oxygen Flow Rate (L/min) 60 Oxygen Delivery Method Airvo Weight: 87.8 kg Body Mass Index (BMI) 26.5 Intake & Output: Intake and Output for Last 24 Hours 11/22/20 11/23/20 11/24/20 23:59 23:59 23:59 Intake Total 1058.33 / 1058.33 1501.67 / 1501.67 406.67 / 406.67 Output Total 1400 / 1400 900 / 900 Balance 1058.33 / 1058.33 101.67 / 101.67 -493.33 / -493.33 Lab / Micro Data Result Diagrams: 11/24/20 06:14 11/24/20 06:14 Labs: Laboratory Results - last 24 hr 11/23/20 06:03: Diff Path Review Reviewed 11/23/20 16:37: POC Glucose 116 H 11/23/20 20:57: POC Glucose 113 H 11/24/20 06:14: WBC 4.8, RBC 4.30 L, Hgb 12.4 L, Hct 37.9 L, MCV 88.1, MCH 28.8, MCHC 32.7, RDW Std Deviation 49.2 H, RDW Coeff of Adrian 15.3 H, Plt Count 105 L, MPV 10.7, Neut % (Auto) Not Reportable, Absolute Neuts (auto) 2.7, Absolute Lymphs (auto) 0.80 L, Total Counted 100, Neutrophils % (Manual) 56, Lymphocytes % (Manual) 17 L, Monocytes % (Manual) 16 H, Metamyelocytes % 7 H, Myelocytes % 4 H, Diff Path Review May , Platelet Estimate SLT DEC, RBC Morphology NORM C+C 11/24/20 06:14: Sodium 138, Potassium 4.3, Chloride 106, Carbon Dioxide 27.0, Anion Gap 5, BUN 24 H, Creatinine 0.54 L, Estim Creat Clear Calc 201.58, Est GFR (MDRD) Af Amer 217, Est GFR (MDRD) Non-Af 179, BUN/Creatinine Ratio 44.3 H, Glucose 95, Calcium 8.9, Total Bilirubin 0.30, AST 16, ALT 14 L, Alkaline Phosphatase 36 L, Total Protein 6.4, Albumin 2.0 L, Globulin 4.4 H, Albumin/Globulin Ratio 0.5 L 11/24/20 06:16: POC Glucose 85 Micro: Microbiology 11/18/20 11:52 Blood Culture (Wb) - Anticubital Left Blood Culture - Final No growth in 5 days. 11/18/20 11:50 Blood Culture (Wb) - Anticubital Right Blood Culture - Final No growth in 5 days. 11/18/20 12:54 Urine Catheter - Catheter Urine Culture - Final Culture exhibits no growth. 11/18/20 17:42 Urine, Clean Catch Legionella Antigen - Final 11/18/20 17:42 Urine, Clean Catch Streptococcus pneumoniae Antigen (M - Final 11/18/20 17:00 Mucosa - Nose Respiratory Panel (PCR) - Final 11/18/20 14:20 Nasal Secretion SARS-CoV-2 Antigen (Rapid) - Final SARS-CoV-2 (COVID 19) Physical Exam Narrative GENERAL: Appears ill looking, on airvo HEENT: Atraumatic; EYES; Anicteric, Normal Conjunctiva NECK; supple, normal thyroid, RESPIRATORY: Diminished to auscultation CARDIOVASCULAR: Regular S1 S2, GI: soft, normoactive bowel sounds, : No Renal angle tenderness; EXTREMITIES: No edema, no clubbing, MUSCULOSKELETAL: no muscle waisting NEURO: Awake; no lateralizing signs. SKIN: No Rash PSYCH; Flat affect Assessment & Plan Assessment/Plan (1) Acute respiratory failure with hypoxia: (2) Pneumonia due to severe acute respiratory syndrome coronavirus 2 (SARS-CoV-2): (3) Leukopenia: QUALIFIERS: Leukopenia type: lymphocytopenia Qualified Code(s): D72.810 - Lymphocytopenia (4) Thrombocytopenia: (5) Mental disability: PLAN: Patient is a 40-year-old history with underlying history of learning disability as well as bipolar disorder who was brought to the emergency department with increasing shortness of breath. An assessment of acute hypoxic respiratory failure secondary to COVID-19 pneumonia made admitted to monitored bed for further management 1. Acute hypoxic respiratory failure ?Secondary to COVID-19 pneumonia; Admitted to a monitored bed placed on noninvasive ventilation via Airvo. Patient was started on Decadron remdesivir as well as baricitinib -11/22/2020 still requiring high flow oxygen -11/23/2020; No significant change in patient's clinical condition. Still remains hypoxic. Update was given to patient's brother who was in the room -11/24/2020; Patient still remains restless making his care very challenging. Did adjust patient psychotropic medications to match his home regimen. Updated patient's brother is primary care 2. Pancytopenia ?Secondary to COVID-19 infection will monitor 3. Hyperglycemia ?Due to concomitant use of steroid patient was placed on Accu-Cheks before meals and at bedtime with sliding scale coverage 4. Bipolar disorder ?Discontinue patient psychotropic medications 5. DVT prophylaxis ?Held off initiating chemoprophylaxis in view of patient thrombocytopenia 6. Constipation ?Patient started on MiraLAX Charges/Coding Visit Charges Inpatient E&M: 47405 Subs Hosp L2
[2020-11-24] MEDS: Bisacodyl 10 MG Suppository RC (14:37)
[2020-11-24] MEDS: Bisacodyl 5 MG Tablet 10 MG PO (14:38)
[2020-11-24] MEDS: Acetaminophen 325 MG Tablet 650 MG PO (15:08)
[2020-11-24 15:25] LABS: Bedside Glucose 103 mg/dL (70-110)
[2020-11-24] MEDS: CLOZAPINE 50 MG 100 MG PO (20:03)
[2020-11-24] MEDS: oxyCODONE 5 MG Tablet PO (20:49)
[2020-11-24 21:01] LABS: Bedside Glucose 120 mg/dL (70-110)
[2020-11-25] VITALS (25 sets, daily range): BP systolic 89–100; BP diastolic 60–70; PULSE 48–87; RESP 18–28; TEMP 36.2–36.8; O2SAT 88–99
--- NOTE | 2020-11-25 03:58 | NURSING ---
Pt resting in bed with with eyes closed. no discomfort noted. brother present in chair at bedside.
[2020-11-25] MEDS: oxyCODONE 5 MG Tablet PO ×3 (05:13→23:28)
[2020-11-25] MEDS: Dext 5%-0.45% NS 1,000 ML 50 ML IV (05:43)
[2020-11-25] MEDS: busPIRone 15 MG TABLET PO ×3 (05:43→20:20)
--- NOTE | 2020-11-25 06:37 | NURSING ---
Pt still a little restless in the bed, but has improved. brother present at bedside. denies needs.
[2020-11-25 06:45] LABS: Bedside Glucose 91 mg/dL (70-110)
[2020-11-25 07:30] LABS: Hematocrit 39.8 % (40-54); Hemoglobin 12.7 g/dL (13.0-16.5); Mean Corp Hgb Conc 31.9 g/dL (32-36); Mean Corpuscular Hgb 28.3 pg (27.0-32.0); Mean Corpuscular Volume 88.6 fL (80-94); Mean Platelet Vol. 11.3 fl (6.2-12.0); POSITIVE COUNT YES; POSITIVE MORPHOLOGY YES; Platelet Count 86 K/mm3 (150-450); RBC Distribution Width CV 15.2 % (11.6-14.6); RBC Distribution Width SD 49.7 fl (35.1-43.9); Red Blood Count 4.49 M/mm3 (4.6-6.2); White Blood Count 6.1 K/mm3 (4.4-11.0)
--- NOTE | 2020-11-25 07:30 | CPS ---
PT PLACED ON NRB 15L W/ AIRVO TO MAINTAIN 90% SATS. PT WAS VERY AGITATED. NURSE MARY HUTSON
[2020-11-25 07:31] LABS: Differential Indicated MANUAL DIFF
[2020-11-25 07:46] LABS: ALB/GLOB Ratio 0.4 RATIO (0.9-2.4); AST(SGOT) 27 U/L (15-37); Alanine Aminotransfer ALT/SGPT 15 U/L (16-61); Albumin, Serum 2.1 g/dL (3.2-5.0); Alkaline Phosphatase 39 U/L (45-117); Anion Gap 6 (5-15); BUN 28 mg/dL (7-18); BUN/Creat Ratio 46.8 RATIO (10-20); Calcium,Total 9.1 mg/dL (8.5-10.1); Chloride 107 mmol/L (98-107); EST Glomerular Filtration Rate 160 mL/min (>60); Est Glom Filt Rate - Afr Amer 193 mL/min (>60); Estimated Creatinine Clearance 181.43 ml/min; Globulin 4.7 g/dL (2.2-4.2); Glucose 91 mg/dL (74-106); Potassium 4.5 mmol/L (3.5-5.1); Protein, Total 6.8 g/dL (6.4-8.2); Sodium Level 137 mmol/L (136-145)
--- NOTE | 2020-11-25 07:47 | PN.HOSP_ITS ---
Subjective Subjective No significant change in patient's overall condition more agitated than the day prior. An order was given for patient to receive 2 mg of Ativan. Patient also did receive Dulcolax 10 mg p.o. and 10 mg suppository for constipation. Per patient's brother patient did not have a bowel movement additional Dulcolax giv en Objective Data Objective Data Vital Signs: Vital Signs Temp Pulse Resp BP Pulse Ox 97.2 F L 86 18 92/64 96 11/25/20 05:22 11/25/20 06:58 11/25/20 05:22 11/25/20 05:22 11/25/20 05:22 Oxygen Flow Rate (L/min) 60 Oxygen Delivery Method Airvo Weight: 87 kg Body Mass Index (BMI) 26.5 Intake & Output: Intake and Output for Last 24 Hours 11/23/20 11/24/20 11/25/20 23:59 23:59 23:59 Intake Total 1501.67 / 1501.67 516.67 / 516.67 640.83 / 640.83 Output Total 1400 / 1400 1400 / 1750 350 / 350 Balance 101.67 / 101.67 -883.33 / -1233.33 290.83 / 290.83 Lab / Micro Data Result Diagrams: 11/25/20 06:50 11/25/20 06:50 Labs: Laboratory Results - last 24 hr 11/24/20 06:14: Absolute Neuts (auto) 2.7, Absolute Lymphs (auto) 0.80 L, Total Counted 100, Neutrophils % (Manual) 56, Lymphocytes % (Manual) 17 L, Monocytes % (Manual) 16 H, Metamyelocytes % 7 H, Myelocytes % 4 H, Diff Path Review June, Platelet Estimate SLT DEC, RBC Morphology NORM C+C 11/24/20 15:10: POC Glucose 103 11/24/20 19:54: POC Glucose 120 H 11/25/20 06:25: POC Glucose 91 11/25/20 06:50: WBC 6.1, RBC 4.49 L, Hgb 12.7 L, Hct 39.8 L, MCV 88.6, MCH 28.3, MCHC 31.9 L, RDW Std Deviation 49.7 H, RDW Coeff of Adrian 15.2 H, Plt Count 86 L, MPV 11.3, Neut % (Auto) Not Reportable 11/25/20 06:50: Sodium 137, Potassium 4.5, Chloride 107, Carbon Dioxide 24.0, Anion Gap 6, BUN 28 H, Creatinine 0.60 L, Estim Creat Clear Calc 181.43, Est GFR (MDRD) Af Amer 193, Est GFR (MDRD) Non-Af 160, BUN/Creatinine Ratio 46.8 H, Glucose 91, Calcium 9.1, Total Bilirubin 0.60, AST 27, ALT 15 L, Alkaline Phosphatase 39 L, Total Protein 6.8, Albumin 2.1 L, Globulin 4.7 H, Albumin/Globulin Ratio 0.4 L Micro: Microbiology 11/18/20 11:52 Blood Culture (Wb) - Anticubital Left Blood Culture - Final No growth in 5 days. 11/18/20 11:50 Blood Culture (Wb) - Anticubital Right Blood Culture - Final No growth in 5 days. 11/18/20 12:54 Urine Catheter - Catheter Urine Culture - Final Culture exhibits no growth. 11/18/20 17:42 Urine, Clean Catch Legionella Antigen - Final 11/18/20 17:42 Urine, Clean Catch Streptococcus pneumoniae Antigen (M - Final 11/18/20 17:00 Mucosa - Nose Respiratory Panel (PCR) - Final 11/18/20 14:20 Nasal Secretion SARS-CoV-2 Antigen (Rapid) - Final SARS-CoV-2 (COVID 19) Physical Exam Narrative GENERAL: Appears ill looking, on airvo HEENT: Atraumatic; EYES; Anicteric, Normal Conjunctiva NECK; supple, normal thyroid, RESPIRATORY: Diminished to auscultation CARDIOVASCULAR: Regular S1 S2, GI: soft, normoactive bowel sounds, : No Renal angle tenderness; EXTREMITIES: No edema, no clubbing, MUSCULOSKELETAL: no muscle waisting NEURO: Awake; no lateralizing signs. SKIN: No Rash PSYCH; Flat affect Assessment & Plan Assessment/Plan (1) Acute respiratory failure with hypoxia: (2) Pneumonia due to severe acute respiratory syndrome coronavirus 2 (SARS-CoV-2): (3) Leukopenia: QUALIFIERS: Leukopenia type: lymphocytopenia Qualified Code(s): D72.810 - Lymphocytopenia (4) Thrombocytopenia: (5) Mental disability: PLAN: Patient is a 40-year-old history with underlying history of learning disability as well as bipolar disorder who was brought to the emergency department with increasing shortness of breath. An assessment of acute hypoxic respiratory failure secondary to COVID-19 pneumonia made admitted to monitored bed for further management 1. Acute hypoxic respiratory failure ?Secondary to COVID-19 pneumonia; Admitted to a monitored bed placed on noninvasive ventilation via Airvo. Patient was started on Decadron remdesivir as well as baricitinib -11/22/2020 still requiring high flow oxygen -11/23/2020; No significant change in patient's clinical condition. Still remains hypoxic. Update was given to patient's brother who was in the room -11/24/2020; Patient still remains restless making his care very challenging. Did adjust patient psychotropic medications to match his home regimen. Updated patient's brother is primary care 2. Pancytopenia ?Secondary to COVID-19 infection will monitor 3. Hyperglycemia ?Due to concomitant use of steroid patient was placed on Accu-Cheks before meals and at bedtime with sliding scale coverage 4. Bipolar disorder ?Discontinue patient psychotropic medications -11/25/2020; patient is significantly agitated this a.m. did receive 2 mg of IV Ativan 5. DVT prophylaxis ?Held off initiating chemoprophylaxis in view of patient thrombocytopenia 6. Constipation ?Patient started on MiraLAX -11/25/2020 patient apparently refused MiraLAX. Subsequently placed on Dulcolax suppository as needed as well as scheduled docusate Charges/Coding Visit Charges Inpatient E&M: 28940 [facility] H[facility] L2
[2020-11-25 08:07] LABS: Lymphocyte 17 % (19-41); Metamyelocyte 16 % (0-1); Monocyte 4 % (0-10); Myelocyte 1 % (0-0); Neutrophil-Band 11 % (0-5); Neutrophil-Segmented 51 % (47-70); Total Cells Counted 100 (MANUAL DIFF)
[2020-11-25 08:08] LABS: Platelet Estimate MOD DEC (ADEQ); Red Cell Morphology NORM C+C NORMAL (NORM C&C)
[2020-11-25 08:09] LABS: Absolute Lymphocyte Count 1.04 X10^3/uL (0.83-4.51); Absolute Neutrophil Count 3.8 X10^3/uL (2.0-7.7); Lymphocyte # 1.04 X10^3/ul (0.83-4.51); Neutrophil # 3.79 X10^3/uL (2.7-7.7)
[2020-11-25] MEDS: Benztropine 2 MG Tablet 1 MG PO ×2 (08:11→20:21)
[2020-11-25] MEDS: guaiFENesin/D-Methorphan TAB.SR.12H 1 TABLET PO ×2 (08:11→20:21)
[2020-11-25] MEDS: clonazePAM 0.5 MG Tablet PO ×2 (08:12→16:55)
[2020-11-25] MEDS: Acetaminophen 325 MG Tablet 650 MG PO ×2 (08:12→20:21)
[2020-11-25] MEDS: dexAMETHasone 10 MG/ML Vial 6 MG IV (08:13)
[2020-11-25] MEDS: Cholecalciferol (VIT D3) 25 MCG TABLET (1,000 UNITS) PO (08:13)
[2020-11-25] MEDS: Ascorbic Acid 500 MG Tablet PO (08:13)
[2020-11-25] MEDS: CLOZAPINE 50 MG PO (08:14)
[2020-11-25] MEDS: LORazepam 2 MG/ML Syringe IV (08:29)
[2020-11-25 11:10] LABS: Bedside Glucose 108 mg/dL (70-110)
[2020-11-25] MEDS: Bisacodyl 10 MG Suppository RC (11:17)
[2020-11-25] MEDS: Senna/Docusate Sodium 1 Tablet 2 TABLET PO ×2 (11:23→20:20)
[2020-11-25] MEDS: Bisacodyl 5 MG Tablet 10 MG PO (11:24)
[2020-11-25 14:27] LABS: Pathologist Review Reviewed
[2020-11-25 15:56] LABS: Bedside Glucose 99 mg/dL (70-110)
--- NOTE | 2020-11-25 15:58 | CASEMGMT ---
RNCM Note S/w Morena Douglas from [facility] as per MOD Dr Nicolas plan will be for an LTAC. Confirmed fax numer and faxed inquiry for review for PDC sometime next week. Patient currently on Airvo with FiO2 90%. IRENE Townsend
[2020-11-25] MEDS: CLOZAPINE 50 MG 100 MG PO (20:21)
[2020-11-25 20:30] LABS: Bedside Glucose 100 mg/dL (70-110)
[2020-11-26] VITALS (18 sets, daily range): BP systolic 87–104; BP diastolic 53–71; PULSE 49–107; RESP 16–24; TEMP 36.4–37.4; O2SAT 89–98
[2020-11-26] MEDS: oxyCODONE 5 MG Tablet PO ×4 (03:23→21:54)
[2020-11-26] MEDS: busPIRone 15 MG TABLET PO ×3 (06:30→21:50)
[2020-11-26 06:51] LABS: Bedside Glucose 72 mg/dL (70-110)
[2020-11-26 07:22] LABS: Hematocrit 38.5 % (40-54); Hemoglobin 12.8 g/dL (13.0-16.5); Mean Corp Hgb Conc 33.2 g/dL (32-36); Mean Corpuscular Hgb 29.2 pg (27.0-32.0); Mean Corpuscular Volume 87.7 fL (80-94); Mean Platelet Vol. 10.2 fl (6.2-12.0); POSITIVE COUNT YES; POSITIVE MORPHOLOGY YES; Platelet Count 142 K/mm3 (150-450); RBC Distribution Width CV 15.3 % (11.6-14.6); Red Blood Count 4.39 M/mm3 (4.6-6.2); White Blood Count 8.9 K/mm3 (4.4-11.0)
[2020-11-26 07:36] LABS: Differential Indicated MANUAL DIFF
[2020-11-26 07:54] LABS: ALB/GLOB Ratio 0.5 RATIO (0.9-2.4); AST(SGOT) 20 U/L (15-37); Alanine Aminotransfer ALT/SGPT 13 U/L (16-61); Albumin, Serum 2.3 g/dL (3.2-5.0); Alkaline Phosphatase 39 U/L (45-117); Anion Gap 8 (5-15); BUN 26 mg/dL (7-18); BUN/Creat Ratio 39.5 RATIO (10-20); Calcium,Total 9.4 mg/dL (8.5-10.1); Chloride 105 mmol/L (98-107); Creatinine, Serum 0.66 mg/dL (0.70-1.30); EST Glomerular Filtration Rate 143 mL/min (>60); Est Glom Filt Rate - Afr Amer 173 mL/min (>60); Estimated Creatinine Clearance 164.93 ml/min; Globulin 4.4 g/dL (2.2-4.2); Glucose 86 mg/dL (74-106); Potassium 3.9 mmol/L (3.5-5.1); Protein, Total 6.7 g/dL (6.4-8.2); Sodium Level 138 mmol/L (136-145)
--- NOTE | 2020-11-26 08:18 | PCM.PN.HOSP ---
Subjective Subjective Patient seen appears to be resting comfortably still no bowel movement Objective Data Objective Data Vital Signs: Vital Signs Temp Pulse Resp BP Pulse Ox 99.3 F H 88 22 H 97/68 95 11/26/20 06:00 11/26/20 07:59 11/26/20 07:59 11/26/20 06:00 11/26/20 07:59 Oxygen Flow Rate (L/min) 60 Oxygen Delivery Method Airvo Weight: 87 kg Body Mass Index (BMI) 26.5 Intake & Output: Intake and Output for Last 24 Hours 11/24/20 11/25/20 11/26/20 23:59 23:59 23:59 Intake Total 516.67 / 516.67 1224.16 / 1224.16 55 / 55 Output Total 1400 / 1750 750 / 1000 400 / 400 Balance -883.33 / -1233.33 474.16 / 224.16 -345 / -345 Medical Nutrition Assessment Dietitian: Malnutrition Criteria Met Start: 11/25/20 12:15 Freq: Status: Active Protocol: Document 11/25/20 12:16 RMA (Rec: 11/25/20 12:16 RMA [id number]) Nutrition Malnutrition Evidence of Malnutrition Exists Yes Malnutrition (severe): Acute Illness/Injury Evidenced By Suboptimal Energy Intake ( Severe),Weight Loss (Severe) Intake Problem Inadequate Oral Intake Etiology related to increased oxygen needs/BiPAP and difficulty swallowing Signs/Symptoms as evidenced by currently NPO and need for pureed solids and nectar-thick liquids when able to tolerate PO nutrition Status Active Problem Clinical Problem Acute Disease or Injury Related Malnutrition Etiology Severe protein calorie malnutrition in the context of acute illness related to inadequate oral intake/ swallowing difficulty Signs/Symptoms as evidenced by NPO x day #5 and wt loss~2% x past 1 week Status Active Problem Swallowing Difficulty Etiology related to coughing at meals and w/ PO diet Signs/Symptoms as evidenced by NPO and need for pureed solids and nectar- thick liquids as PO diet advanced Status Active Problem Recommendation Dietitian Recommendations/Changes Resume regular diet w/ consistency/texture as per INSTRUCTIONAL SUPERVISOR . Ensure Pudding w/ meals when diet resumes. Consider TF support if unable to resume PO nutrition. Lab / Micro Data Result Diagrams: 11/26/20 07:02 11/26/20 07:02 Labs: Laboratory Results - last 24 hr 11/24/20 06:14: Diff Path Review Reviewed 11/25/20 10:53: POC Glucose 108 11/25/20 15:48: POC Glucose 99 11/25/20 20:19: POC Glucose 100 11/26/20 06:33: POC Glucose 72 11/26/20 07:02: WBC 8.9, RBC 4.39 L, Hgb 12.8 L, Hct 38.5 L, MCV 87.7, MCH 29.2, MCHC 33.2, RDW Std Deviation 49.0 H, RDW Coeff of Adrian 15.3 H, Plt Count 142 L, MPV 10.2, Neut % (Auto) Not Reportable 11/26/20 07:02: Sodium 138, Potassium 3.9, Chloride 105, Carbon Dioxide 25.0, Anion Gap 8, BUN 26 H, Creatinine 0.66 L, Estim Creat Clear Calc 164.93, Est GFR (MDRD) Af Amer 173, Est GFR (MDRD) Non-Af 143, BUN/Creatinine Ratio 39.5 H, Glucose 86, Calcium 9.4, Total Bilirubin 0.70, AST 20, ALT 13 L, Alkaline Phosphatase 39 L, Total Protein 6.7, Albumin 2.3 L, Globulin 4.4 H, Albumin/Globulin Ratio 0.5 L Micro: Microbiology 11/18/20 11:52 Blood Culture (Wb) - Anticubital Left Blood Culture - Final No growth in 5 days. 11/18/20 11:50 Blood Culture (Wb) - Anticubital Right Blood Culture - Final No growth in 5 days. 11/18/20 12:54 Urine Catheter - Catheter Urine Culture - Final Culture exhibits no growth. 11/18/20 17:42 Urine, Clean Catch Legionella Antigen - Final 11/18/20 17:42 Urine, Clean Catch Streptococcus pneumoniae Antigen (M - Final 11/18/20 17:00 Mucosa - Nose Respiratory Panel (PCR) - Final 11/18/20 14:20 Nasal Secretion SARS-CoV-2 Antigen (Rapid) - Final SARS-CoV-2 (COVID 19) Physical Exam Narrative GENERAL: Appears ill looking, on airvo HEENT: Atraumatic; EYES; Anicteric, Normal Conjunctiva NECK; supple, normal thyroid, RESPIRATORY: Diminished to auscultation CARDIOVASCULAR: Regular S1 S2, GI: soft, normoactive bowel sounds, : No Renal angle tenderness; EXTREMITIES: No edema, no clubbing, MUSCULOSKELETAL: no muscle waisting NEURO: Awake; no lateralizing signs. SKIN: No Rash PSYCH; Flat affect Assessment & Plan Assessment/Plan (1) Acute respiratory failure with hypoxia: (2) Pneumonia due to severe acute respiratory syndrome coronavirus 2 (SARS-CoV-2): (3) Leukopenia: QUALIFIERS: Leukopenia type: lymphocytopenia Qualified Code(s): D72.810 - Lymphocytopenia (4) Thrombocytopenia: (5) Mental disability: PLAN: Patient is a 40-year-old history with underlying history of learning disability as well as bipolar disorder who was brought to the emergency department with increasing shortness of breath. An assessment of acute hypoxic respiratory failure secondary to COVID-19 pneumonia made admitted to monitored bed for further management 1. Acute hypoxic respiratory failure ?Secondary to COVID-19 pneumonia; Admitted to a monitored bed placed on noninvasive ventilation via Airvo. Patient was started on Decadron remdesivir as well as baricitinib -11/22/2020 still requiring high flow oxygen -11/23/2020; No significant change in patient's clinical condition. Still remains hypoxic. Update was given to patient's brother who was in the room -11/24/2020; Patient still remains restless making his care very challenging. Did adjust patient psychotropic medications to match his home regimen. Updated patient's brother is primary care -11/26/2020; patient remains on a level 2. Pancytopenia ?Secondary to COVID-19 infection will monitor 3. Hyperglycemia ?Due to concomitant use of steroid patient was placed on Accu-Cheks before meals and at bedtime with sliding scale coverage 4. Bipolar disorder ?Discontinue patient psychotropic medications -11/25/2020; patient is significantly agitated this a.m. did receive 2 mg of IV Ativan 5. DVT prophylaxis ?Held off initiating chemoprophylaxis in view of patient thrombocytopenia 6. Constipation ?Patient started on MiraLAX -11/25/2020 patient apparently refused MiraLAX. Subsequently placed on Dulcolax suppository as needed as well as scheduled docusate Charges/Coding Visit Charges Inpatient E&M: 20191 Subs Hosp L2
--- NOTE | 2020-11-26 08:54 | PCM.PN.INT ---
Assessment & Plan Assessment/Plan (1) Pneumonia due to severe acute respiratory syndrome coronavirus 2 (SARS-CoV-2): (2) Acute respiratory failure with hypoxia: (3) Thrombocytopenia: (4) Mental disability: PLAN: RECOMMENDATIONS: 1. Continue Decadron. Remdesivir is completed. 2. Continue baricitinib to complete treatment course. 3. Wean FiO2 to maintain oxygen saturations at or above 90%. 4. Lasix, as needed, to maintain euvolemic state. 5. Agree with LTACH disposition. 6. Will sign off at this time. Please call with any additional questions. IMPRESSIONS: 1. Acute hypoxic respiratory failure secondary to COVID-19 pneumonia The patient is currently tolerating heated high flow oxygen, but has extensive infiltrates noted on CT of the chest. The patient has completed a treatment course of remdesivir and remains on Decadron and baricitinib. Continue to wean FiO2 as tolerated to maintain saturations at or above 90%. Continue as needed Lasix to maintain euvolemic state. 2. Pancytopenia Unclear etiology. This may be secondary to medications or viral illness. No indication for transfusion at this time, but would continue to follow on a daily basis. Platelet count continues to improve without intervention. 3. Bipolar disorder/MRDD/hyperglycemia Complicates care, management, recovery and prognosis. Valproate levels appear to be appropriate. Patient is a DNR Comfort Care arrest without intubation. This note was generated with [employer] dictation software. It may contain incorrect words, spelling, and punctuation that were not noted in checking the note before signing. Subjective Subjective The patient was seen and examined at the bedside this morning. Events from the last 24 hours have been reviewed. The patient is currently afebrile, hemodynamically stable and maintaining appropriate oxygen saturations on Airvo heated high flow with an FiO2 requirement of 62% and flow rate of 60 L/min. The patient is currently documented to be overall net +800 mL for the hospital admission. The patient remains on Decadron and baricitinib. Renal function is stable. There are tentative plans for eventual LTACH disposition. Objective Data Objective Data The patient's most recent lab work, culture data and imaging studies have all been personally reviewed. Rapid coronavirus antigen testing was positive on November 18. Respiratory viral panel was negative. Strep and urine Legionella antigens were negative. Vital Signs: Vital Signs Temp Pulse Resp BP Pulse Ox 99.3 F H 88 22 H 97/68 95 11/26/20 06:00 11/26/20 07:59 11/26/20 07:59 11/26/20 06:00 11/26/20 07:59 Oxygen Flow Rate (L/min) 60 Oxygen Delivery Method Airvo Weight: 87 kg Body Mass Index (BMI) 26.5 Intake & Output: Intake and Output for Last 24 Hours 11/24/20 11/25/20 11/26/20 23:59 23:59 23:59 Intake Total 516.67 / 516.67 1224.16 / 1224.16 55 / 55 Output Total 1400 / 1750 750 / 1000 400 / 400 Balance -883.33 / -1233.33 474.16 / 224.16 -345 / -345 Medical Nutrition Assessment Dietitian: Malnutrition Criteria Met Start: 11/25/20 12:15 Freq: Status: Active Protocol: Document 11/25/20 12:16 RMA (Rec: 11/25/20 12:16 RMA [id number]) Nutrition Malnutrition Evidence of Malnutrition Exists Yes Malnutrition (severe): Acute Illness/Injury Evidenced By Suboptimal Energy Intake ( Severe),Weight Loss (Severe) Intake Problem Inadequate Oral Intake Etiology related to increased oxygen needs/BiPAP and difficulty swallowing Signs/Symptoms as evidenced by currently NPO and need for pureed solids and nectar-thick liquids when able to tolerate PO nutrition Status Active Problem Clinical Problem Acute Disease or Injury Related Malnutrition Etiology Severe protein calorie malnutrition in the context of acute illness related to inadequate oral intake/ swallowing difficulty Signs/Symptoms as evidenced by NPO x day #5 and wt loss~2% x past 1 week Status Active Problem Swallowing Difficulty Etiology related to coughing at meals and w/ PO diet Signs/Symptoms as evidenced by NPO and need for pureed solids and nectar- thick liquids as PO diet advanced Status Active Problem Recommendation Dietitian Recommendations/Changes Resume regular diet w/ consistency/texture as per CLOUD SYSTEMS ADMINISTRATOR . Ensure Pudding w/ meals when diet resumes. Consider TF support if unable to resume PO nutrition. Lab / Micro Data Result Diagrams: 11/26/20 07:02 11/26/20 07:02 Labs: Laboratory Results - last 24 hr 11/24/20 06:14: Diff Path Review Reviewed 11/25/20 10:53: POC Glucose 108 11/25/20 15:48: POC Glucose 99 11/25/20 20:19: POC Glucose 100 11/26/20 06:33: POC Glucose 72 11/26/20 07:02: WBC 8.9, RBC 4.39 L, Hgb 12.8 L, Hct 38.5 L, MCV 87.7, MCH 29.2, MCHC 33.2, RDW Std Deviation 49.0 H, RDW Coeff of Adrian 15.3 H, Plt Count 142 L, MPV 10.2, Neut % (Auto) Not Reportable 11/26/20 07:02: Sodium 138, Potassium 3.9, Chloride 105, Carbon Dioxide 25.0, Anion Gap 8, BUN 26 H, Creatinine 0.66 L, Estim Creat Clear Calc 164.93, Est GFR (MDRD) Af Amer 173, Est GFR (MDRD) Non-Af 143, BUN/Creatinine Ratio 39.5 H, Glucose 86, Calcium 9.4, Total Bilirubin 0.70, AST 20, ALT 13 L, Alkaline Phosphatase 39 L, Total Protein 6.7, Albumin 2.3 L, Globulin 4.4 H, Albumin/Globulin Ratio 0.5 L Micro: Microbiology 11/18/20 11:52 Blood Culture (Wb) - Anticubital Left Blood Culture - Final No growth in 5 days. 11/18/20 11:50 Blood Culture (Wb) - Anticubital Right Blood Culture - Final No growth in 5 days. 11/18/20 12:54 Urine Catheter - Catheter Urine Culture - Final Culture exhibits no growth. 11/18/20 17:42 Urine, Clean Catch Legionella Antigen - Final 11/18/20 17:42 Urine, Clean Catch Streptococcus pneumoniae Antigen (M - Final 11/18/20 17:00 Mucosa - Nose Respiratory Panel (PCR) - Final 11/18/20 14:20 Nasal Secretion SARS-CoV-2 Antigen (Rapid) - Final SARS-CoV-2 (COVID 19) Physical Exam Const alert and no apparent distress General Appearance: cooperative HEENT head/scalp atraumatic and moist oral mucous membranes; Negative for normocephalic Eyes PERRL and EOMs intact bilaterally Neck supple General: trachea midline Chest inspection of chest normal Resp Effort and Inspection: tachypneic Auscultation: diminished lung sounds; Negative for rales, rhonchi or wheezes Cardio regular rate and regular rhythm GI normal to inspection, nondistended, normoactive bowel sounds Extremity no clubbing, cyanosis or edema Skin no rashes or lesions noted Neuro no focal motor deficits Psych Mood & Affect: flat affect Charges/Coding Visit Charges Inpatient E&M: 88389 Subs Hosp L2
[2020-11-26 09:07] LABS: Eosinophil 1 % (0-5); Lymphocyte 21 % (19-41); Metamyelocyte 9 % (0-1); Monocyte 11 % (0-10); Myelocyte 4 % (0-0); Neutrophil-Band 2 % (0-5); Neutrophil-Segmented 51 % (47-70); Plasma Cell 1 %; Platelet Estimate SLT DEC (ADEQ); Total Cells Counted 100 (MANUAL DIFF)
[2020-11-26 09:08] LABS: Absolute Lymphocyte Count 1.88 X10^3/uL (0.83-4.51); Absolute Neutrophil Count 4.7 X10^3/uL (2.0-7.7)
[2020-11-26] MEDS: Dext 5%-0.45% NS 1,000 ML 50 ML IV (09:39)
[2020-11-26] MEDS: dexAMETHasone 10 MG/ML Vial 6 MG IV (09:41)
[2020-11-26 12:06] LABS: Bedside Glucose 101 mg/dL (70-110)
[2020-11-26] MEDS: guaiFENesin/D-Methorphan TAB.SR.12H 1 TABLET PO ×2 (12:16→21:50)
[2020-11-26] MEDS: clonazePAM 0.5 MG Tablet PO ×2 (12:17→16:34)
[2020-11-26] MEDS: Benztropine 2 MG Tablet 1 MG PO ×2 (12:17→21:50)
[2020-11-26] MEDS: Senna/Docusate Sodium 1 Tablet 2 TABLET PO ×2 (12:18→21:50)
[2020-11-26] MEDS: CLOZAPINE 50 MG PO (12:18)
[2020-11-26 17:00] LABS: Bedside Glucose 123 mg/dL (70-110)
[2020-11-26] MEDS: CLOZAPINE 50 MG 100 MG PO (21:51)
[2020-11-26 23:46] LABS: Bedside Glucose 117 mg/dL (70-110)
[2020-11-27] VITALS (19 sets, daily range): BP systolic 81–120; BP diastolic 56–65; PULSE 49–87; RESP 16–24; TEMP 36.2–37.1; O2SAT 92–100
[2020-11-27 06:32] LABS: Hematocrit 35.9 % (40-54); Hemoglobin 11.9 g/dL (13.0-16.5); Mean Corp Hgb Conc 33.1 g/dL (32-36); Mean Corpuscular Hgb 29.1 pg (27.0-32.0); Mean Corpuscular Volume 87.8 fL (80-94); Mean Platelet Vol. 10.1 fl (6.2-12.0); POSITIVE COUNT YES; POSITIVE MORPHOLOGY YES; Platelet Count 162 K/mm3 (150-450); RBC Distribution Width CV 15.3 % (11.6-14.6); RBC Distribution Width SD 48.9 fl (35.1-43.9); Red Blood Count 4.09 M/mm3 (4.6-6.2); White Blood Count 9.7 K/mm3 (4.4-11.0)
[2020-11-27] MEDS: oxyCODONE 5 MG Tablet PO ×2 (06:47→14:11)
[2020-11-27] MEDS: busPIRone 15 MG TABLET PO ×3 (06:47→21:17)
[2020-11-27 06:55] LABS: ALB/GLOB Ratio 0.5 RATIO (0.9-2.4); AST(SGOT) 24 U/L (15-37); Alanine Aminotransfer ALT/SGPT 12 U/L (16-61); Albumin, Serum 2.1 g/dL (3.2-5.0); Alkaline Phosphatase 41 U/L (45-117); Anion Gap 7 (5-15); BUN 25 mg/dL (7-18); Calcium,Total 9.3 mg/dL (8.5-10.1); Chloride 105 mmol/L (98-107); Creatinine, Serum 0.54 mg/dL (0.70-1.30); EST Glomerular Filtration Rate 179 mL/min (>60); Est Glom Filt Rate - Afr Amer 216 mL/min (>60); Estimated Creatinine Clearance 201.58 ml/min; Globulin 4.4 g/dL (2.2-4.2); Glucose 97 mg/dL (74-106); Potassium 4.1 mmol/L (3.5-5.1); Protein, Total 6.5 g/dL (6.4-8.2); Sodium Level 139 mmol/L (136-145)
[2020-11-27 07:06] LABS: Bedside Glucose 91 mg/dL (70-110)
[2020-11-27 07:13] LABS: Differential Indicated MANUAL DIFF
[2020-11-27 07:36] LABS: Absolute Neutrophil Count 6.9 X10^3/uL (2.0-7.7); Blast 1 % (0-0); Metamyelocyte 2 % (0-1); Monocyte# 1.85 X10^3/uL; Myelocyte 9 % (0-0); Neutrophil-Band 11 % (0-5); Neutrophil-Segmented 60 % (47-70); Promyelocyte 4 % (0-0)
[2020-11-27 07:37] LABS: Lymphocyte 19 % (19-41); Monocyte 5 % (0-10); Platelet Estimate ADEQUATE (ADEQ); Red Cell Morphology N CYTIC NORMAL (NORM C&C)
--- NOTE | 2020-11-27 08:21 | PCM.PN.HOSP ---
Subjective Subjective Patient seen still remains agitated. Still no bowel movement. Still requiring high flow oxygen Objective Data Objective Data Vital Signs: Vital Signs Temp Pulse Resp BP Pulse Ox 97.2 F L 58 L 22 H 90/62 92 11/27/20 06:00 11/27/20 08:08 11/27/20 08:08 11/27/20 06:00 11/27/20 08:08 Oxygen Flow Rate (L/min) 60 Oxygen Delivery Method Airvo Weight: 87 kg Body Mass Index (BMI) 26.5 Intake & Output: Intake and Output for Last 24 Hours 11/25/20 11/26/20 11/27/20 23:59 23:59 23:59 Intake Total 1224.16 / 1224.16 745.00 / 745.00 0 / 0 Output Total 750 / 1000 1550 / 1800 550 / 550 Balance 474.16 / 224.16 -805.00 / -1055.00 -550 / -550 Medical Nutrition Assessment Dietitian: Malnutrition Criteria Met Start: 11/25/20 12:15 Freq: Status: Active Protocol: Document 11/25/20 12:16 RMA (Rec: 11/25/20 12:16 RMA [id number]) Nutrition Malnutrition Evidence of Malnutrition Exists Yes Malnutrition (severe): Acute Illness/Injury Evidenced By Suboptimal Energy Intake ( Severe),Weight Loss (Severe) Intake Problem Inadequate Oral Intake Etiology related to increased oxygen needs/BiPAP and difficulty swallowing Signs/Symptoms as evidenced by currently NPO and need for pureed solids and nectar-thick liquids when able to tolerate PO nutrition Status Active Problem Clinical Problem Acute Disease or Injury Related Malnutrition Etiology Severe protein calorie malnutrition in the context of acute illness related to inadequate oral intake/ swallowing difficulty Signs/Symptoms as evidenced by NPO x day #5 and wt loss~2% x past 1 week Status Active Problem Swallowing Difficulty Etiology related to coughing at meals and w/ PO diet Signs/Symptoms as evidenced by NPO and need for pureed solids and nectar- thick liquids as PO diet advanced Status Active Problem Recommendation Dietitian Recommendations/Changes Resume regular diet w/ consistency/texture as per BOMB LOADER . Ensure Pudding w/ meals when diet resumes. Consider TF support if unable to resume PO nutrition. Lab / Micro Data Result Diagrams: 11/27/20 05:34 11/27/20 05:34 Labs: Laboratory Results - last 24 hr 11/26/20 07:02: Absolute Neuts (auto) 4.7, Absolute Lymphs (auto) 1.88, Total Counted 100, Neutrophils % (Manual) 51, Band Neutrophils % 2, Lymphocytes % (Manual) 21, Monocytes % (Manual) 11 H, Eosinophils % (Manual) 1, Metamyelocytes % 9 H, Myelocytes % 4 H, Plasma Cell % (Manual) 1, Diff Path Review June trudy, Platelet Estimate SLT 11/26/20 11:54: POC Glucose 101 11/26/20 16:40: POC Glucose 123 H 11/26/20 21:46: POC Glucose 117 H 11/27/20 05:34: WBC 9.7, RBC 4.09 L, Hgb 11.9 L, Hct 35.9 L, MCV 87.8, MCH 29.1, MCHC 33.1, RDW Std Deviation 48.9 H, RDW Coeff of Adrian 15.3 H, Plt Count 162, MPV 10.1, Neut % (Auto) Not Reportable, Absolute Neuts (auto) 6.9, Absolute Lymphs (auto) 1.00, Neutrophils % (Manual) 60, Band Neutrophils % 11 H, Lymphocytes % (Manual) 19, Monocytes % (Manual) 5, Metamyelocytes % 2 H, Myelocytes % 9 H, Promyelocytes % 4 H, Blast Cells % 1 H*, Diff Path Review June trudy, Platelet Estimate ADEQUATE, RBC Morphology N CYTIC 11/27/20 05:34: Sodium 139, Potassium 4.1, Chloride 105, Carbon Dioxide 27.0, Anion Gap 7, BUN 25 H, Creatinine 0.54 L, Estim Creat Clear Calc 201.58, Est GFR (MDRD) Af Amer 216, Est GFR (MDRD) Non-Af 179, BUN/Creatinine Ratio 46.0 H, Glucose 97, Calcium 9.3, Total Bilirubin 0.50, AST 24, ALT 12 L, Alkaline Phosphatase 41 L, Total Protein 6.5, Albumin 2.1 L, Globulin 4.4 H, Albumin/Globulin Ratio 0.5 L 11/27/20 06:54: POC Glucose 91 Micro: Microbiology 11/18/20 11:52 Blood Culture (Wb) - Anticubital Left Blood Culture - Final No growth in 5 days. 11/18/20 11:50 Blood Culture (Wb) - Anticubital Right Blood Culture - Final No growth in 5 days. 11/18/20 12:54 Urine Catheter - Catheter Urine Culture - Final Culture exhibits no growth. 11/18/20 17:42 Urine, Clean Catch Legionella Antigen - Final 11/18/20 17:42 Urine, Clean Catch Streptococcus pneumoniae Antigen (M - Final 11/18/20 17:00 Mucosa - Nose Respiratory Panel (PCR) - Final 11/18/20 14:20 Nasal Secretion SARS-CoV-2 Antigen (Rapid) - Final SARS-CoV-2 (COVID 19) Physical Exam Narrative GENERAL: Appears ill looking, on airvo HEENT: Atraumatic; EYES; Anicteric, Normal Conjunctiva NECK; supple, normal thyroid, RESPIRATORY: Diminished to auscultation CARDIOVASCULAR: Regular S1 S2, GI: soft, normoactive bowel sounds, : No Renal angle tenderness; EXTREMITIES: No edema, no clubbing, MUSCULOSKELETAL: no muscle waisting NEURO: Awake; no lateralizing signs. SKIN: No Rash PSYCH; Flat affect Assessment & Plan Assessment/Plan (1) Acute respiratory failure with hypoxia: (2) Pneumonia due to severe acute respiratory syndrome coronavirus 2 (SARS-CoV-2): (3) Leukopenia: QUALIFIERS: Leukopenia type: lymphocytopenia Qualified Code(s): D72.810 - Lymphocytopenia (4) Thrombocytopenia: (5) Mental disability: PLAN: Patient is a 40-year-old history with underlying history of learning disability as well as bipolar disorder who was brought to the emergency department with increasing shortness of breath. An assessment of acute hypoxic respiratory failure secondary to COVID-19 pneumonia made admitted to monitored bed for further management 1. Acute hypoxic respiratory failure ?Secondary to COVID-19 pneumonia; Admitted to a monitored bed placed on noninvasive ventilation via Airvo. Patient was started on Decadron remdesivir as well as baricitinib -11/22/2020 still requiring high flow oxygen -11/23/2020; No significant change in patient's clinical condition. Still remains hypoxic. Update was given to patient's brother who was in the room -11/24/2020; Patient still remains restless making his care very challenging. Did adjust patient psychotropic medications to match his home regimen. Updated patient's brother is primary care 11/27/2020; no change in patient clinical condition with still high flow oxygen requirement 2. Pancytopenia ?Secondary to COVID-19 infection will monitor 3. Hyperglycemia ?Due to concomitant use of steroid patient was placed on Accu-Cheks before meals and at bedtime with sliding scale coverage 4. Bipolar disorder ?Discontinue patient psychotropic medications -11/25/2020; patient is significantly agitated this a.m. did receive 2 mg of IV Ativan 5. DVT prophylaxis ?Held off initiating chemoprophylaxis in view of patient thrombocytopenia 6. Constipation ?Patient started on MiraLAX -11/25/2020 patient apparently refused MiraLAX. Subsequently placed on Dulcolax suppository as needed as well as scheduled docusate Charges/Coding Visit Charges Inpatient E&M: 84081 Subs Hosp L2
[2020-11-27] MEDS: Cholecalciferol (VIT D3) 25 MCG TABLET (1,000 UNITS) PO (10:04)
[2020-11-27] MEDS: guaiFENesin/D-Methorphan TAB.SR.12H 1 TABLET PO ×2 (10:04→21:18)
[2020-11-27] MEDS: Ascorbic Acid 500 MG Tablet PO (10:05)
[2020-11-27] MEDS: Senna/Docusate Sodium 1 Tablet 2 TABLET PO ×2 (10:05→21:18)
[2020-11-27] MEDS: clonazePAM 0.5 MG Tablet PO ×2 (10:05→17:38)
[2020-11-27] MEDS: Benztropine 2 MG Tablet 1 MG PO ×2 (10:06→21:17)
[2020-11-27] MEDS: CLOZAPINE 50 MG PO (10:06)
[2020-11-27] MEDS: dexAMETHasone 10 MG/ML Vial 6 MG IV (10:06)
[2020-11-27] MEDS: Dext 5%-0.45% NS 1,000 ML 50 ML IV (10:13)
[2020-11-27 16:46] LABS: Bedside Glucose 124 mg/dL (70-110)
[2020-11-27] MEDS: CLOZAPINE 50 MG 100 MG PO (21:17)
[2020-11-27 21:41] LABS: Bedside Glucose 116 mg/dL (70-110)
[2020-11-27 21:41] LABS: Bedside Glucose 116 mg/dL (70-110)
[2020-11-28] VITALS (18 sets, daily range): BP systolic 89–100; BP diastolic 60–80; PULSE 53–90; RESP 15–26; TEMP 36.4–36.9; O2SAT 91–99
[2020-11-28] MEDS: busPIRone 15 MG TABLET PO ×3 (05:21→22:31)
[2020-11-28] MEDS: oxyCODONE 5 MG Tablet PO ×4 (05:29→22:47)
[2020-11-28 07:28] LABS: Hematocrit 35.5 % (40-54); Hemoglobin 12.1 g/dL (13.0-16.5); Mean Corp Hgb Conc 34.1 g/dL (32-36); Mean Corpuscular Hgb 29.9 pg (27.0-32.0); Mean Corpuscular Volume 87.7 fL (80-94); Mean Platelet Vol. 10.3 fl (6.2-12.0); POSITIVE COUNT YES; POSITIVE MORPHOLOGY YES; Platelet Count 194 K/mm3 (150-450); RBC Distribution Width CV 15.4 % (11.6-14.6); RBC Distribution Width SD 49.1 fl (35.1-43.9); Red Blood Count 4.05 M/mm3 (4.6-6.2); White Blood Count 10.7 K/mm3 (4.4-11.0)
[2020-11-28 07:31] LABS: Differential Indicated MANUAL DIFF
[2020-11-28 07:53] LABS: Lymphocyte 12 % (19-41); Metamyelocyte 3 % (0-1); Monocyte 1 % (0-10); Neutrophil-Band 5 % (0-5); Neutrophil-Segmented 79 % (47-70); Platelet Estimate ADEQUATE (ADEQ); Red Cell Morphology NORM C+C NORMAL (NORM C&C); Total Cells Counted 100 (MANUAL DIFF)
[2020-11-28 07:54] LABS: Absolute Lymphocyte Count 1.28 X10^3/uL (0.83-4.51); Absolute Neutrophil Count 8.9 X10^3/uL (2.0-7.7); Lymphocyte # 1.28 X10^3/ul (0.83-4.51); Neutrophil # 8.95 X10^3/uL (2.7-7.7)
[2020-11-28 08:03] LABS: ALB/GLOB Ratio 0.5 RATIO (0.9-2.4); AST(SGOT) 36 U/L (15-37); Alanine Aminotransfer ALT/SGPT 17 U/L (16-61); Albumin, Serum 2.2 g/dL (3.2-5.0); Alkaline Phosphatase 39 U/L (45-117); Anion Gap 8 (5-15); BUN 29 mg/dL (7-18); BUN/Creat Ratio 47.4 RATIO (10-20); Calcium,Total 9.7 mg/dL (8.5-10.1); Chloride 105 mmol/L (98-107); Creatinine, Serum 0.61 mg/dL (0.70-1.30); EST Glomerular Filtration Rate 156 mL/min (>60); Est Glom Filt Rate - Afr Amer 188 mL/min (>60); Estimated Creatinine Clearance 178.45 ml/min; Globulin 4.5 g/dL (2.2-4.2); Glucose 84 mg/dL (74-106); Potassium 3.9 mmol/L (3.5-5.1); Protein, Total 6.7 g/dL (6.4-8.2); Sodium Level 140 mmol/L (136-145)
[2020-11-28] MEDS: Cholecalciferol (VIT D3) 25 MCG TABLET (1,000 UNITS) PO (09:45)
[2020-11-28] MEDS: clonazePAM 0.5 MG Tablet PO ×2 (09:45→17:05)
[2020-11-28] MEDS: Ascorbic Acid 500 MG Tablet PO (09:45)
[2020-11-28] MEDS: Benztropine 2 MG Tablet 1 MG PO ×2 (09:45→22:31)
[2020-11-28] MEDS: guaiFENesin/D-Methorphan TAB.SR.12H 1 TABLET PO ×2 (09:46→22:31)
[2020-11-28] MEDS: Polyethylene Glycol 3350 17 GM PACKET PO (09:47)
[2020-11-28] MEDS: CLOZAPINE 50 MG PO (09:47)
[2020-11-28] MEDS: dexAMETHasone 10 MG/ML Vial 6 MG IV (09:48)
[2020-11-28] MEDS: 0.9% Saline Lock 10 ML Syringe IV (09:48)
[2020-11-28] MEDS: Acetaminophen 325 MG Tablet 650 MG PO (10:04)
[2020-11-28] MEDS: Senna/Docusate Sodium 1 Tablet 2 TABLET PO ×2 (10:05→22:31)
[2020-11-28] MEDS: Dext 5%-0.45% NS 1,000 ML 50 ML IV (10:05)
--- NOTE | 2020-11-28 10:53 | CASEMGMT ---
Updated clinicals faxed to [facility]. CM to follow. SStlisa RN CM
[2020-11-28 12:49] LABS: Pathologist Review Reviewed
[2020-11-28 12:58] LABS: Pathologist Review Reviewed
[2020-11-28 13:04] LABS: Pathologist Review Reviewed
[2020-11-28 13:15] LABS: Pathologist Review Reviewed
--- NOTE | 2020-11-28 13:27 | CASEMGMT ---
Call from Morena at [facility]3] and she states pt would qualify for LTACH at this time but states no beds available. Dr. Auguste aware and will speak with family when she sees pt today. Johnnie SHIPMAN CM
[2020-11-28 16:35] LABS: Bedside Glucose 119 mg/dL (70-110)
[2020-11-28 17:26] LABS: Bedside Glucose 102 mg/dL (70-110)
--- NOTE | 2020-11-28 18:04 | PN.HOSP_ITS ---
Subjective Subjective Follow-up on acute respiratory failure/acute COVID-19 pneumonia: Patient was seen and examined. His oxygen requirement has decreased. Currently on 9 L of oxygen. Objective Data Objective Data Vital Signs: Vital Signs Temp Pulse Resp BP Pulse Ox 97.8 F 79 19 H 91/60 92 11/28/20 17:18 11/28/20 17:18 11/28/20 17:18 11/28/20 17:18 11/28/20 17:18 Oxygen Flow Rate (L/min) 9 Oxygen Delivery Method Nasal Cannula Weight: 87 kg Body Mass Index (BMI) 26.5 Intake & Output: Intake and Output for Last 24 Hours 11/26/20 11/27/20 11/28/20 23:59 23:59 23:59 Intake Total 745.00 / 745.00 1165 / 1165 1155 / 1155 Output Total 1550 / 1800 1250 / 1250 200 / 200 Balance -805.00 / -1055.00 -85 / -85 955 / 955 Medical Nutrition Assessment Dietitian: Malnutrition Criteria Met Start: 11/25/20 12:15 Freq: Status: Active Protocol: Document 11/25/20 12:16 RMA (Rec: 11/25/20 12:16 RMA [id number]) Nutrition Malnutrition Evidence of Malnutrition Exists Yes Malnutrition (severe): Acute Illness/Injury Evidenced By Suboptimal Energy Intake ( Severe),Weight Loss (Severe) Intake Problem Inadequate Oral Intake Etiology related to increased oxygen needs/BiPAP and difficulty swallowing Signs/Symptoms as evidenced by currently NPO and need for pureed solids and nectar-thick liquids when able to tolerate PO nutrition Status Active Problem Clinical Problem Acute Disease or Injury Related Malnutrition Etiology Severe protein calorie malnutrition in the context of acute illness related to inadequate oral intake/ swallowing difficulty Signs/Symptoms as evidenced by NPO x day #5 and wt loss~2% x past 1 week Status Active Problem Swallowing Difficulty Etiology related to coughing at meals and w/ PO diet Signs/Symptoms as evidenced by NPO and need for pureed solids and nectar- thick liquids as PO diet advanced Status Active Problem Recommendation Dietitian Recommendations/Changes Resume regular diet w/ consistency/texture as per OUTSOLES CHANNEL OPENER . Ensure Pudding w/ meals when diet resumes. Consider TF support if unable to resume PO nutrition. Lab / Micro Data Result Diagrams: 11/28/20 07:00 11/28/20 07:00 Labs: Laboratory Results - last 24 hr 11/25/20 06:50: Diff Path Review Reviewed 11/26/20 07:02: Diff Path Review Reviewed 11/27/20 05:34: Diff Path Review Reviewed 11/27/20 17:43: POC Glucose 116 H 11/27/20 21:14: POC Glucose 116 H 11/28/20 07:00: WBC 10.7, RBC 4.05 L, Hgb 12.1 L, Hct 35.5 L, MCV 87.7, MCH 29.9, MCHC 34.1, RDW Std Deviation 49.1 H, RDW Coeff of Adrian 15.4 H, Plt Count 194, MPV 10.3, Neut % (Auto) Not Reportable, Absolute Neuts (auto) 8.9 H, Absolute Lymphs (auto) 1.28, Total Counted 100, Neutrophils % (Manual) 79 H, Band Neutrophils % 5, Lymphocytes % (Manual) 12 L, Monocytes % (Manual) 1, Metamyelocytes % 3 H, Diff Path Review Reviewed, Platelet Estimate ADEQUATE, RBC Morphology NORM C+C 11/28/20 07:00: Sodium 140, Potassium 3.9, Chloride 105, Carbon Dioxide 27.0, Anion Gap 8, BUN 29 H, Creatinine 0.61 L, Estim Creat Clear Calc 178.45, Est GFR (MDRD) Af Amer 188, Est GFR (MDRD) Non-Af 156, BUN/Creatinine Ratio 47.4 H, Glucose 84, Calcium 9.7, Total Bilirubin 0.40, AST 36, ALT 17, Alkaline Phosphatase 39 L, Total Protein 6.7, Albumin 2.2 L, Globulin 4.5 H, Albumin/Globulin Ratio 0.5 L 11/28/20 12:15: POC Glucose 102 11/28/20 16:31: POC Glucose 119 H Micro: Microbiology 11/18/20 11:52 Blood Culture (Wb) - Anticubital Left Blood Culture - Final No growth in 5 days. 11/18/20 11:50 Blood Culture (Wb) - Anticubital Right Blood Culture - Final No growth in 5 days. 11/18/20 12:54 Urine Catheter - Catheter Urine Culture - Final Culture exhibits no growth. 11/18/20 17:42 Urine, Clean Catch Legionella Antigen - Final 11/18/20 17:42 Urine, Clean Catch Streptococcus pneumoniae Antigen (M - Final 11/18/20 17:00 Mucosa - Nose Respiratory Panel (PCR) - Final 11/18/20 14:20 Nasal Secretion SARS-CoV-2 Antigen (Rapid) - Final SARS-CoV-2 (COVID 19) Physical Exam Narrative Physical exam: General: Alert, moaning, incoherent, agitated on 9 L of oxygen, not in respiratory distress HEENT: Atraumatic Oral: Moist Mucosa Neck: Supple Lungs: Diminished to auscultation Cardiovascular: HS I+II, regular, no murmurs Abdomen: Bowel Sounds Present, Soft, Non Tender Extremities: No edema Skin: No rashes, No breakdown Neurological: Grossly intact Psych/Mental Status: Appropriate Assessment & Plan Assessment/Plan (1) Pneumonia due to severe acute respiratory syndrome coronavirus 2 (SARS-CoV-2): (2) Acute respiratory failure with hypoxia: (3) Severe malnutrition: (4) Leukopenia: QUALIFIERS: Leukopenia type: lymphocytopenia Qualified Code(s): D72.810 - Lymphocytopenia (5) Thrombocytopenia: (6) Mental disability: PLAN: 1. Acute hypoxic respiratory failure secondary to acute COVID-19 pneumonia Patient's oxygen requirements have slightly improved Currently on 9 L of oxygen Continue on dexamethasone and Baracitinib 2. Pancytopenia secondary to acute COVID-19 infection, improved 3. Hyperglycemia secondary to steroid use, improved 4. Bipolar disorder, continue on clozapine, clonazepam, BuSpar Charges/Coding Visit Charges Inpatient E&M: 57025 Subs Hosp L2
[2020-11-28] MEDS: CLOZAPINE 50 MG 100 MG PO (22:31)
[2020-11-28 23:01] LABS: Bedside Glucose 90 mg/dL (70-110)
--- NOTE | 2020-11-28 23:43 | NURSING ---
Soap edith given per doctor order patient tolerated well was able to hold 1000ml. Clear liquid no bowel movement noted as of now. Brother sitting at bedside with nurse and radial drill operator for plastic was in the room. Call light within reach
[2020-11-29] VITALS (13 sets, daily range): BP systolic 88–102; BP diastolic 57–73; PULSE 55–95; RESP 13–20; TEMP 36.3–36.6; O2SAT 93–98
[2020-11-29] MEDS: Dext 5%-0.45% NS 1,000 ML 50 ML IV (05:51)
[2020-11-29] MEDS: oxyCODONE 5 MG Tablet PO ×3 (05:52→14:30)
[2020-11-29] MEDS: busPIRone 15 MG TABLET PO ×3 (05:52→21:48)
[2020-11-29] MEDS: LORazepam 2 MG/ML Syringe 1 MG IV ×2 (06:02→22:49)
[2020-11-29] MEDS: 0.9% Saline Lock 10 ML Syringe IV ×2 (06:03→22:50)
--- NOTE | 2020-11-29 06:52 | NURSING ---
Patient became agitated in room with brother was at bedside. Sp02 decrease to 83% so this nurse increased hiflow up to !5L. Call respiratory to come in the room to assist patient on nonrebreather at this time. Given IV ativan to help with the agitation Sp92 at 94% at this time. Patient resting in bed with eyes closed with brother at bedside. This nurse notified Lawanda the respiratory what the patient Spo2 was at this time.
[2020-11-29 06:55] LABS: Bedside Glucose 80 mg/dL (70-110)
[2020-11-29 07:48] LABS: Absolute Lymphocyte Count 1.21 X10^3/uL (0.83-4.51); Absolute Neutrophil Count 7.9 X10^3/uL (2.0-7.7); Basophil# 0.03 X10^3/uL; Basophil% 0.3 % (0-1); Eosinophil# 0.03 X10^3/uL; Eosinophils% 0.3 % (0-5); Hematocrit 34.2 % (40-54); Hemoglobin 11.4 g/dL (13.0-16.5); Lymphocyte # 1.21 X10^3/ul (0.83-4.51); Lymphocyte % 11.9 % (19-41); Mean Corp Hgb Conc 33.3 g/dL (32-36); Mean Corpuscular Hgb 29.4 pg (27.0-32.0); Mean Corpuscular Volume 88.1 fL (80-94); Mean Platelet Vol. 10.2 fl (6.2-12.0); Monocyte# 0.51 X10^3/uL; NRBC Flagged by Analyzer 0 % (0-5); Neutrophil # 7.89 X10^3/uL (2.7-7.7); Neutrophil % 77.9 % (47-70); Platelet Count 202 K/mm3 (150-450); RBC Distribution Width CV 15.2 % (11.6-14.6); Red Blood Count 3.88 M/mm3 (4.6-6.2); White Blood Count 10.1 K/mm3 (4.4-11.0)
[2020-11-29 08:09] LABS: ALB/GLOB Ratio 0.5 RATIO (0.9-2.4); AST(SGOT) 28 U/L (15-37); Alanine Aminotransfer ALT/SGPT 17 U/L (16-61); Albumin, Serum 2.1 g/dL (3.2-5.0); Alkaline Phosphatase 39 U/L (45-117); Anion Gap 6 (5-15); BUN 28 mg/dL (7-18); Calcium,Total 9.3 mg/dL (8.5-10.1); Chloride 104 mmol/L (98-107); Creatinine, Serum 0.48 mg/dL (0.70-1.30); EST Glomerular Filtration Rate 204 mL/min (>60); Est Glom Filt Rate - Afr Amer 247 mL/min (>60); Estimated Creatinine Clearance 226.78 ml/min; Globulin 4.4 g/dL (2.2-4.2); Glucose 83 mg/dL (74-106); Potassium 3.9 mmol/L (3.5-5.1); Protein, Total 6.5 g/dL (6.4-8.2); Sodium Level 138 mmol/L (136-145)
[2020-11-29] MEDS: clonazePAM 0.5 MG Tablet PO ×3 (08:40→17:53)
[2020-11-29] MEDS: Ascorbic Acid 500 MG Tablet PO (08:40)
[2020-11-29] MEDS: Benztropine 2 MG Tablet 1 MG PO ×2 (08:41→21:47)
[2020-11-29] MEDS: guaiFENesin/D-Methorphan TAB.SR.12H 1 TABLET PO ×2 (08:42→21:48)
[2020-11-29] MEDS: CLOZAPINE 50 MG PO (08:43)
[2020-11-29] MEDS: Senna/Docusate Sodium 1 Tablet 2 TABLET PO ×2 (08:43→21:48)
[2020-11-29] MEDS: Cholecalciferol (VIT D3) 25 MCG TABLET (1,000 UNITS) PO (08:43)
[2020-11-29] MEDS: dexAMETHasone 10 MG/ML Vial 6 MG IV (08:43)
[2020-11-29] MEDS: Bisacodyl 10 MG Suppository RC (08:45)
[2020-11-29] MEDS: Polyethylene Glycol 3350 17 GM PACKET PO (08:45)
--- NOTE | 2020-11-29 09:52 | PCM.PN.HOSP ---
Subjective Subjective Patient was seen and examined. Discussed with both brothers. He has been moaning more. Given an extra dose of clonazepam 0.5 mg x 1. Does seem to help. Overnight he has been requiring more Ativan. Changes were made to valproic acid to match what he was taking at home. Patient seen to be moaning, complains of back pain. Unable to tell where he has pain. Lidoderm patches ordered Objective Data Objective Data Vital Signs: Vital Signs Temp Pulse Resp BP Pulse Ox 97.4 F L 71 20 H 102/66 94 11/29/20 09:27 11/29/20 09:27 11/29/20 09:27 11/29/20 09:27 11/29/20 09:27 Oxygen Flow Rate (L/min) 6 Oxygen Delivery Method Nasal Cannula Weight: 87 kg Body Mass Index (BMI) 26.5 Intake & Output: Intake and Output for Last 24 Hours 11/27/20 11/28/20 11/29/20 23:59 23:59 23:59 Intake Total 1165 / 1165 1365 / 1365 1055.83 / 1055.83 Output Total 1250 / 1250 600 / 600 Balance -85 / -85 765 / 765 1055.83 / 1055.83 Medical Nutrition Assessment Dietitian: Malnutrition Criteria Met Start: 11/25/20 12:15 Freq: Status: Active Protocol: Document 11/25/20 12:16 RMA (Rec: 11/25/20 12:16 RMA [id number]) Nutrition Malnutrition Evidence of Malnutrition Exists Yes Malnutrition (severe): Acute Illness/Injury Evidenced By Suboptimal Energy Intake ( Severe),Weight Loss (Severe) Intake Problem Inadequate Oral Intake Etiology related to increased oxygen needs/BiPAP and difficulty swallowing Signs/Symptoms as evidenced by currently NPO and need for pureed solids and nectar-thick liquids when able to tolerate PO nutrition Status Active Problem Clinical Problem Acute Disease or Injury Related Malnutrition Etiology Severe protein calorie malnutrition in the context of acute illness related to inadequate oral intake/ swallowing difficulty Signs/Symptoms as evidenced by NPO x day #5 and wt loss~2% x past 1 week Status Active Problem Swallowing Difficulty Etiology related to coughing at meals and w/ PO diet Signs/Symptoms as evidenced by NPO and need for pureed solids and nectar- thick liquids as PO diet advanced Status Active Problem Recommendation Dietitian Recommendations/Changes Resume regular diet w/ consistency/texture as per GLAZIER SUPERVISOR . Ensure Pudding w/ meals when diet resumes. Consider TF support if unable to resume PO nutrition. Lab / Micro Data Result Diagrams: 11/29/20 07:20 11/29/20 07:20 Labs: Laboratory Results - last 24 hr 11/25/20 06:50: Diff Path Review Reviewed 11/26/20 07:02: Diff Path Review Reviewed 11/27/20 05:34: Diff Path Review Reviewed 11/28/20 07:00: Diff Path Review Reviewed 11/28/20 12:15: POC Glucose 102 11/28/20 16:31: POC Glucose 119 H 11/28/20 22:51: POC Glucose 90 11/29/20 06:48: POC Glucose 80 11/29/20 07:20: WBC 10.1, RBC 3.88 L, Hgb 11.4 L, Hct 34.2 L, MCV 88.1, MCH 29.4, MCHC 33.3, RDW Std Deviation 49.0 H, RDW Coeff of Adrian 15.2 H, Plt Count 202, MPV 10.2, Immature Gran % (Auto) 4.600 H, Neut % (Auto) 77.9 H, Lymph % (Auto) 11.9 L, [place] % (Auto) 5.0, Eos % (Auto) 0.3, Baso % (Auto) 0.3, Absolute Neuts (auto) 7.9 H, Absolute Lymphs (auto) 1.21, Nucleated RBC % 0 11/29/20 07:20: Sodium 138, Potassium 3.9, Chloride 104, Carbon Dioxide 28.0, Anion Gap 6, BUN 28 H, Creatinine 0.48 L, Estim Creat Clear Calc 226.78, Est GFR (MDRD) Af Amer 247, Est GFR (MDRD) Non-Af 204, BUN/Creatinine Ratio 58.0 H, Glucose 83, Calcium 9.3, Total Bilirubin 0.50, AST 28, ALT 17, Alkaline Phosphatase 39 L, Total Protein 6.5, Albumin 2.1 L, Globulin 4.4 H, Albumin/Globulin Ratio 0.5 L Micro: Microbiology 11/18/20 11:52 Blood Culture (Wb) - Anticubital Left Blood Culture - Final No growth in 5 days. 11/18/20 11:50 Blood Culture (Wb) - Anticubital Right Blood Culture - Final No growth in 5 days. 11/18/20 12:54 Urine Catheter - Catheter Urine Culture - Final Culture exhibits no growth. 11/18/20 17:42 Urine, Clean Catch Legionella Antigen - Final 11/18/20 17:42 Urine, Clean Catch Streptococcus pneumoniae Antigen (M - Final 11/18/20 17:00 Mucosa - Nose Respiratory Panel (PCR) - Final 11/18/20 14:20 Nasal Secretion SARS-CoV-2 Antigen (Rapid) - Final SARS-CoV-2 (COVID 19) Physical Exam Narrative Physical exam: General: Alert, moaning, incoherent, agitated on 6 L of oxygen, not in respiratory distress HEENT: Atraumatic Oral: Moist Mucosa Neck: Supple Lungs: Diminished to auscultation Cardiovascular: HS I+II, regular, no murmurs Abdomen: Bowel Sounds Present, Soft, Non Tender Extremities: No edema Skin: No rashes, No breakdown Neurological: Grossly intact Psych/Mental Status: Appropriate Assessment & Plan Assessment/Plan (1) Pneumonia due to severe acute respiratory syndrome coronavirus 2 (SARS-CoV-2): (2) Acute respiratory failure with hypoxia: (3) Severe malnutrition: (4) Leukopenia: QUALIFIERS: Leukopenia type: lymphocytopenia Qualified Code(s): D72.810 - Lymphocytopenia (5) Thrombocytopenia: (6) Mental disability: PLAN: 1. Acute hypoxic respiratory failure secondary to acute COVID-19 pneumonia Patient's oxygen requirements have slightly improved Currently on 6 L of oxygen Continue on dexamethasone and Baracitinib 2. Pancytopenia secondary to acute COVID-19 infection, improved 3. Hyperglycemia secondary to steroid use, improved 4. Bipolar disorder, continue on clozapine, clonazepam, BuSpar 5. Constipation, on multiple stool softeners, will give enema, check KUB 6. Severe protein calorie malnutrition, patient with dysphagia on thickened liquids, oral intake Mechanical Cad Drafter consulted Charges/Coding Visit Charges Inpatient E&M: 04220 Subs Hosp L3
--- NOTE | 2020-11-29 10:55 | CASEMGMT ---
Physician spoke with patient's brother, Reid about patient going to a senior care for rehab. They will consider it, but they want to be able to stay with him. This has worked out while here at the hospital. Patient only speaks [place]an, he is Developmentally Disabled, and has Bipolar. Patient tested positive for COVID Nov 18. There are several nursing homes considering patient's that are 10-14 days out from their positive test. SW called patient's brother Reid. He asked about [facility]. HUMZA told him SW can check with [facility] and let him know when SW finds out more. SW asked him if he has any other choices and he did not. HUMZA called [facility] and spoke with admissions. SW explained situation and that patient's family has been staying with patient the whole time he has been here. HUMZA asked if they ever allow this. She said no, and that right now they are not allowing any visitation. She said she will check with their cad draftsman and get back to HUMZA. HUMZA did send a referral. Sabiha STINSON
--- NOTE | 2020-11-29 11:57 | CASEMGMT ---
HUMZA received a return call from [facility] and they would not allow a family member to stay with patient. They are not allowing any visitors. HUMZA called [facility] and without giving patient's name explained the situation and asked if they would allow a family member to stay with patient. She said they are currently in outbreak status due to positive employees. They will not be out until 12-09 and they would not allow any family members to stay during that time. HUMZA called [facility] and did the same. Both will check with their administrators and get back to HUMZA. HUMZA is calling the facilities that will take patient's 10-14 days out from their positive test. HUMZA is not giving patient's name, just explaining the situation. Sabiha Call COPY ROOM TECHNICIAN SHANTELL
[2020-11-29 12:00] LABS: Bedside Glucose 83 mg/dL (70-110)
--- NOTE | 2020-11-29 13:07 | CASEMGMT ---
Per Dr. Auguste, pt may not require LTACH level of care at discharge. CM to follow. Marysol CHING aware that pt may be SNF appropriate at discharge. Johnnie SHIPMAN CM
--- NOTE | 2020-11-29 15:18 | CASEMGMT ---
HUMZA received a message from Lisa at [facility] and they would not allow a family member to stay 24/7. She said their therapy is more than willing to develop his own communication board. HUMZA called Jahaira at [facility] and she has not been able to ask her junior linux administrator yet. HUMZA called Cely with [facility]. HUMZA explained the situation and asked if they would consider a case like this. She said she will have to check with people above her. She will let SW know tomorrow. HUMZA also left a message with Rhonda at [facility]. Sabiha Call WEIGH TANK OPERATOR SHANTELL
--- NOTE | 2020-11-29 15:41 | CASEMGMT ---
HUMZA received a call back from [facility] with [facility]. HUMZA explained situation and she will get back to HUMZA. Sabiha Call TAPE MACHINE TAILER SHANTELL
--- NOTE | 2020-11-29 17:15 | RAD_ITS ---
STUDY: X-RAY - ABDOMEN/PELVIS REASON FOR EXAM: Male, 40 years old. Abdominal pain. TECHNIQUE: AP supine and upright views of the abdomen and pelvis. COMPARISON: None. FINDINGS: Normal visualized lung bases. Air and feces is seen throughout the colon. There is air in nondilated small bowel loops in the left midabdomen. There is no demonstrated free abdominal air. The visualized liver, spleen and kidneys are grossly normal in size and morphology. Normal soft tissue structures. There are degenerative changes of the thoracolumbar spine and hips. RAD/Abd Decub and/or Erect(Portabl IMPRESSION: 1. Increased colonic feces suggesting constipation. Electronically Signed: Keyshawn Dawn DO at 18:07 EDT Tel [phone], Service support ,
[2020-11-29] MEDS: Baclofen 10 MG Tablet 5 MG PO (17:53)
[2020-11-29 18:05] LABS: Bedside Glucose 104 mg/dL (70-110)
[2020-11-29 18:17] LABS: Magnesium 2.1 mg/dL (1.6-2.6); Phosphorus 2.4 mg/dL (2.5-4.9)
[2020-11-29] MEDS: Acetaminophen 500 MG Tablet 1000 MG PO (20:18)
--- NOTE | 2020-11-29 20:23 | NURSING ---
Given RTN tylenol early per patient request. Pt nonverbal and yelling this nurse and mold stamper repositioned patient. Patient given a soap edith enema before this shift no bowel movement at this time. Oxygen increase from 4L to 5L NC due to Sp02 being 73% now 95%. Will continue to monitor. Brother at bedside and call light within reach.
[2020-11-29] MEDS: CLOZAPINE 50 MG 100 MG PO (21:48)
[2020-11-29 22:06] LABS: Bedside Glucose 107 mg/dL (70-110)
[2020-11-30] VITALS (11 sets, daily range): BP systolic 91–124; BP diastolic 65–85; PULSE 55–99; RESP 16–20; TEMP 36.2–36.4; O2SAT 92–98
[2020-11-30] MEDS: oxyCODONE 5 MG Tablet PO ×2 (02:21→06:23)
[2020-11-30] MEDS: Acetaminophen 500 MG Tablet 1000 MG PO ×3 (05:12→22:02)
[2020-11-30] MEDS: busPIRone 15 MG TABLET PO ×3 (06:16→22:03)
[2020-11-30 06:45] LABS: Bedside Glucose 95 mg/dL (70-110)
[2020-11-30 06:50] LABS: Absolute Lymphocyte Count 1.94 X10^3/uL (0.83-4.51); Absolute Neutrophil Count 8.4 X10^3/uL (2.0-7.7); Basophil# 0.02 X10^3/uL; Basophil% 0.2 % (0-1); Eosinophil# 0.06 X10^3/uL; Eosinophils% 0.5 % (0-5); Hematocrit 38.8 % (40-54); Hemoglobin 12.7 g/dL (13.0-16.5); Lymphocyte # 1.94 X10^3/ul (0.83-4.51); Lymphocyte % 16.9 % (19-41); Mean Corp Hgb Conc 32.7 g/dL (32-36); Mean Corpuscular Hgb 28.3 pg (27.0-32.0); Mean Corpuscular Volume 86.6 fL (80-94); Mean Platelet Vol. 9.8 fl (6.2-12.0); Monocyte# 0.76 X10^3/uL; Monocyte% 6.6 % (0-10); NRBC Flagged by Analyzer 0 % (0-5); Neutrophil # 8.43 X10^3/uL (2.7-7.7); Neutrophil % 73.4 % (47-70); Platelet Count 248 K/mm3 (150-450); RBC Distribution Width CV 15.2 % (11.6-14.6); RBC Distribution Width SD 48.3 fl (35.1-43.9); Red Blood Count 4.48 M/mm3 (4.6-6.2); White Blood Count 11.5 K/mm3 (4.4-11.0)
[2020-11-30 07:21] LABS: ALB/GLOB Ratio 0.5 RATIO (0.9-2.4); AST(SGOT) 27 U/L (15-37); Alanine Aminotransfer ALT/SGPT 20 U/L (16-61); Albumin, Serum 2.4 g/dL (3.2-5.0); Alkaline Phosphatase 42 U/L (45-117); Anion Gap 8 (5-15); BUN 19 mg/dL (7-18); BUN/Creat Ratio 33.3 RATIO (10-20); Calcium,Total 9.5 mg/dL (8.5-10.1); Chloride 104 mmol/L (98-107); Creatinine, Serum 0.57 mg/dL (0.70-1.30); EST Glomerular Filtration Rate 168 mL/min (>60); Est Glom Filt Rate - Afr Amer 204 mL/min (>60); Estimated Creatinine Clearance 190.97 ml/min; Globulin 4.6 g/dL (2.2-4.2); Glucose 102 mg/dL (74-106); Phosphorus 2.4 mg/dL (2.5-4.9); Potassium 3.8 mmol/L (3.5-5.1); Sodium Level 140 mmol/L (136-145)
--- NOTE | 2020-11-30 09:28 | CASEMGMT ---
HUMZA spoke with physician letting her know that HUMZA has not been able to find a facility that will allow family to stay 24/7. SW will check with family to see if they would be comfortable with taking him home at discharge. HUMZA called patient's brother Reid. HUMZA let him know HUMZA has not been able to find any facilities that will allow family to stay 24/7. HUMZA told him HUMZA is waiting on 2 more facilities to get back to . He said they would be fine taking him home. He will check with the rest of the family. He said he thinks once patient has a bowel movement and is able to eat more he will be a little better. He said patient cannot go to a facility without family being with him as no one is able to handle him but family. He said he can really be a handful. He said they would not have allowed him to be admitted to the hospital if the hospital would not allow family to stay. He thanked HUMZA for checking and he is very thankful for the hospital staff and everything they have done. HUMZA did discuss home health and he said that would be good. Per physician patient will be here a couple more days to see if his oxygen can be lowered and he also needs to have a bowel movement. HUMZA told him we will keep following to assist with planning. Sabiha Call INSPECTOR FINAL ASSEMBLY ELECTRICAL SHANTELL
[2020-11-30] MEDS: Lidocaine 5% Patch 3 PATCH TOPICAL (09:47)
[2020-11-30] MEDS: Magnesium Hydroxide 30 ML UDC PO (09:47)
[2020-11-30] MEDS: Polyethylene Glycol 3350 17 GM PACKET PO (09:47)
[2020-11-30] MEDS: Na Biphos/Potassium Phosphate PACKET 1 PACKET PO ×4 (09:47→22:03)
[2020-11-30] MEDS: 0.9% Saline Lock 10 ML Syringe IV ×2 (09:49→18:33)
[2020-11-30] MEDS: dexAMETHasone 10 MG/ML Vial 6 MG IV (09:49)
[2020-11-30] MEDS: Bisacodyl 10 MG Suppository RC (09:56)
[2020-11-30] MEDS: Senna/Docusate Sodium 1 Tablet 2 TABLET PO ×2 (09:59→22:02)
[2020-11-30] MEDS: clonazePAM 0.5 MG Tablet PO ×2 (10:00→17:14)
[2020-11-30] MEDS: Benztropine 2 MG Tablet 1 MG PO ×2 (10:00→22:02)
[2020-11-30] MEDS: Ascorbic Acid 500 MG Tablet PO (10:00)
[2020-11-30] MEDS: Cholecalciferol (VIT D3) 25 MCG TABLET (1,000 UNITS) PO (10:01)
[2020-11-30] MEDS: guaiFENesin/D-Methorphan TAB.SR.12H 1 TABLET PO ×2 (10:02→22:03)
[2020-11-30] MEDS: CLOZAPINE 50 MG PO (10:03)
--- NOTE | 2020-11-30 10:42 | NURSING ---
soap suds enema given. pt having stomach cramping. will cont to monitor
[2020-11-30 11:55] LABS: Bedside Glucose 116 mg/dL (70-110)
[2020-11-30] MEDS: Valproic Acid 250 MG/5 ML UDC PO (15:06)
[2020-11-30] MEDS: Valproic Acid 250 MG/5 ML UDC 500 MG PO ×2 (15:08→22:01)
--- NOTE | 2020-11-30 15:24 | CASEMGMT ---
Per Dr. Auguste, pt does not meet [facility]ACH any further and Rhonda at [facility] updated, voices understanding. CM to follow. Johnnie SHIPMAN CM
--- NOTE | 2020-11-30 17:09 | PCM.PN.HOSP ---
Subjective Subjective Follow-up on acute respiratory failure/acute COVID-19 pneumonia: Patient was seen and examined. He had not had any bowel movement. Rectal exam was successful; liquid stools obtained Objective Data Objective Data Vital Signs: Vital Signs Temp Pulse Resp BP Pulse Ox 97.2 F L 99 18 124/65 H 92 11/30/20 15:20 11/30/20 15:20 11/30/20 15:20 11/30/20 15:20 11/30/20 15:20 Oxygen Flow Rate (L/min) 5 Oxygen Delivery Method Nasal Cannula Weight: 87 kg Body Mass Index (BMI) 26.5 Intake & Output: Intake and Output for Last 24 Hours 11/28/20 11/29/20 11/30/20 23:59 23:59 23:59 Intake Total 1365 / 1365 1691.66 / 1691.66 55 / 55 Output Total 600 / 600 200 / 200 500 / 500 Balance 765 / 765 1491.66 / 1491.66 -445 / -445 Medical Nutrition Assessment Dietitian: Malnutrition Criteria Met Start: 11/25/20 12:15 Freq: Status: Active Protocol: Document 11/29/20 15:04 RMA (Rec: 11/29/20 15:04 RMA [id number]) Nutrition Malnutrition Evidence of Malnutrition Exists Yes Malnutrition (severe): Acute Illness/Injury Evidenced By Suboptimal Energy Intake ( Severe),Weight Loss (Severe) Intake Problem Inadequate Oral Intake Etiology related to increased oxygen needs/BiPAP and difficulty swallowing Signs/Symptoms as evidenced by need for altered diet consistency Status Active Problem Clinical Problem Acute Disease or Injury Related Malnutrition Etiology Severe protein calorie malnutrition in the context of acute illness related to inadequate oral intake/ swallowing difficulty Signs/Symptoms as evidenced by NPO x day #5 and wt loss~2% x past 1 week Status Active Problem Swallowing Difficulty Etiology related to coughing at meals and w/ PO diet Signs/Symptoms as evidenced by NPO and need for pureed solids and nectar- thick liquids as PO diet advanced Status Active Problem Recommendation Dietitian Recommendations/Changes Continue regular diet w/ consistency/texture as per ICT PROJECT MANAGER , currently pureed foods w/ thin liquids. Will add Ensure Pudding TID w/ meals. Lab / Micro Data Result Diagrams: 11/30/20 06:10 11/30/20 06:10 Labs: Laboratory Results - last 24 hr 11/29/20 07:20: Phosphorus 2.4 L, Magnesium 2.1 11/29/20 17:53: POC Glucose 104 11/29/20 21:51: POC Glucose 107 11/30/20 06:10: WBC 11.5 H, RBC 4.48 L, Hgb 12.7 L, Hct 38.8 L, MCV 86.6, MCH 28.3, MCHC 32.7, RDW Std Deviation 48.3 H, RDW Coeff of Adrian 15.2 H, Plt Count 248, MPV 9.8, Immature Gran % (Auto) 2.400 H, Neut % (Auto) 73.4 H, Lymph % (Auto) 16.9 L, Williamson % (Auto) 6.6, Eos % (Auto) 0.5, Baso % (Auto) 0.2, Absolute Neuts (auto) 8.4 H, Absolute Lymphs (auto) 1.94, Nucleated RBC % 0 11/30/20 06:10: Sodium 140, Potassium 3.8, Chloride 104, Carbon Dioxide 28.0, Anion Gap 8, BUN 19 H, Creatinine 0.57 L, Estim Creat Clear Calc 190.97, Est GFR (MDRD) Af Amer 204, Est GFR (MDRD) Non-Af 168, BUN/Creatinine Ratio 33.3 H, Glucose 102, Calcium 9.5, Phosphorus 2.4 L, Magnesium 2.0, Total Bilirubin 0.50, AST 27, ALT 20, Alkaline Phosphatase 42 L, Total Protein 7.0, Albumin 2.4 L, Globulin 4.6 H, Albumin/Globulin Ratio 0.5 L 11/30/20 06:22: POC Glucose 95 11/30/20 11:42: POC Glucose 116 H Micro: Microbiology 11/18/20 11:52 Blood Culture (Wb) - Anticubital Left Blood Culture - Final No growth in 5 days. 11/18/20 11:50 Blood Culture (Wb) - Anticubital Right Blood Culture - Final No growth in 5 days. 11/18/20 12:54 Urine Catheter - Catheter Urine Culture - Final Culture exhibits no growth. 11/18/20 17:42 Urine, Clean Catch Legionella Antigen - Final 11/18/20 17:42 Urine, Clean Catch Streptococcus pneumoniae Antigen (M - Final 11/18/20 17:00 Mucosa - Nose Respiratory Panel (PCR) - Final 11/18/20 14:20 Nasal Secretion SARS-CoV-2 Antigen (Rapid) - Final SARS-CoV-2 (COVID 19) Radiography Diagnostic Testing: Radiology Impression Abdomen X-Ray 11/29/20 17:15 IMPRESSION: 1. Increased colonic feces suggesting constipation. Electronically Signed: Keyshawn Dawn DO at 18:07 EDT Tel [phone], Service support , Physical Exam Narrative Physical exam: General: Alert, moaning, incoherent, agitated on 5 L of oxygen, not in respiratory distress HEENT: Atraumatic Oral: Moist Mucosa Neck: Supple Lungs: Diminished to auscultation Cardiovascular: HS I+II, regular, no murmurs Abdomen: Bowel Sounds Present, Soft, Non Tender Extremities: No edema Assessment & Plan Assessment/Plan (1) Pneumonia due to severe acute respiratory syndrome coronavirus 2 (SARS-CoV-2): (2) Acute respiratory failure with hypoxia: (3) Severe malnutrition: (4) Leukopenia: QUALIFIERS: Leukopenia type: lymphocytopenia Qualified Code(s): D72.810 - Lymphocytopenia (5) Thrombocytopenia: (6) Mental disability: PLAN: 1. Acute hypoxic respiratory failure secondary to acute COVID-19 pneumonia Patient's oxygen requirements have slightly improved Currently on 5 L of oxygen Continue on dexamethasone and Baracitinib 2. Pancytopenia secondary to acute COVID-19 infection, improved 3. Hyperglycemia secondary to steroid use, improved 4. Bipolar disorder, continue on clozapine, clonazepam, BuSpar 5. Constipation, on multiple stool softeners, will give enema, check KUB 6. Severe protein calorie malnutrition, patient with dysphagia on thickened liquids, oral intake Phlebotomy Tech consulted Charges/Coding Visit Charges Inpatient E&M: 56006 Subs Hosp L2
[2020-11-30 17:25] LABS: Bedside Glucose 109 mg/dL (70-110)
[2020-11-30] MEDS: LORazepam 2 MG/ML Syringe 1 MG IV (18:33)
[2020-11-30] MEDS: CLOZAPINE 50 MG 100 MG PO (22:11)
[2020-11-30 22:35] LABS: Bedside Glucose 84 mg/dL (70-110)
[2020-12-01] VITALS (10 sets, daily range): BP systolic 89–105; BP diastolic 64–78; PULSE 70–109; RESP 18–22; TEMP 36.1–36.5; O2SAT 95–98
[2020-12-01] MEDS: LORazepam 2 MG/ML Syringe 1 MG IV ×3 (03:23→11:25)
[2020-12-01] MEDS: Acetaminophen 500 MG Tablet 1000 MG PO ×3 (06:29→21:26)
[2020-12-01] MEDS: Valproic Acid 250 MG/5 ML UDC 500 MG PO ×3 (06:30→21:26)
[2020-12-01] MEDS: Valproic Acid 250 MG/5 ML UDC PO (06:30)
[2020-12-01] MEDS: busPIRone 15 MG TABLET PO ×3 (06:30→21:26)
[2020-12-01 06:41] LABS: Bedside Glucose 80 mg/dL (70-110)
[2020-12-01] MEDS: guaiFENesin/D-Methorphan TAB.SR.12H 1 TABLET PO ×2 (09:29→21:26)
[2020-12-01] MEDS: Benztropine 2 MG Tablet 1 MG PO ×2 (09:29→21:26)
[2020-12-01] MEDS: clonazePAM 0.5 MG Tablet PO ×2 (09:29→17:58)
[2020-12-01] MEDS: Senna/Docusate Sodium 1 Tablet 2 TABLET PO ×2 (09:29→21:26)
[2020-12-01] MEDS: Ascorbic Acid 500 MG Tablet PO (09:30)
[2020-12-01] MEDS: Polyethylene Glycol 3350 17 GM PACKET PO (09:30)
[2020-12-01] MEDS: Na Biphos/Potassium Phosphate PACKET 1 PACKET PO ×4 (09:30→21:28)
[2020-12-01] MEDS: Bisacodyl 10 MG Suppository RC (09:31)
[2020-12-01] MEDS: dexAMETHasone 10 MG/ML Vial 6 MG IV (09:31)
[2020-12-01] MEDS: Lidocaine 5% Patch 3 PATCH TOPICAL (09:32)
[2020-12-01] MEDS: CLOZAPINE 50 MG PO (09:32)
[2020-12-01 09:50] LABS: Valproic Acid (Depakene) Level 63 ug/mL (50-100)
--- NOTE | 2020-12-01 10:48 | RAD_ITS ---
STUDY: X-RAY CHEST REASON FOR EXAM: Male, 40 years old. Progressive SOB TECHNIQUE: Single AP portable view of the chest. COMPARISON: Comparison is made with prior examination 11/18/2020. FINDINGS: EKG electrodes are seen. Persistent bibasilar infiltrates worse at the left lung base although these have improved as compared to prior study. Blunting of the left costophrenic angle. Normal size heart. Normal mediastinum and maik. Normal visualized pulmonary arteries. Normal visualized aortic arch and descending thoracic aorta. There are diffuse degenerative changes of the visualized thoracic spine. Normal visualized ribs, clavicles, and shoulders. There is no demonstrated abnormality of the visualized soft tissue structures of the upper abdomen. RAD/Chest 1 View (Portable) IMPRESSION: Bibasilar infiltrates more prominent on the left side although there has been improvement as compared to prior study. Electronically Signed: Karthik Armstrong MD at 11:01 EDT , Service support ,
[2020-12-01 11:31] LABS: Bedside Glucose 136 mg/dL (70-110)
[2020-12-01] MEDS: oxyCODONE 5 MG Tablet PO (12:59)
--- NOTE | 2020-12-01 13:37 | CASEMGMT ---
HUMZA received a voice mail from Shantell Awan from [facility] [employer]. HUMZA called her back. She just wanted to let SW know that patient's family takes excellent care of patient. She said they are a progressive [place] family that will get a generator for the O2 if they have to. They are open to home health. HUMZA told her that HUMZA and UMBERTO ORTIZ are working with family and will continue to follow for d/c planning. Sabiha STINSON
--- NOTE | 2020-12-01 13:57 | PN.HOSP_ITS ---
Subjective Subjective Follow-up on acute hypoxic respiratory failure/acute COVID-19 pneumonia: Patient was seen and examined. He had a large bowel movement today. Discharge planning discussed with the brother. Case management/ social media executive updated Objective Data Objective Data Vital Signs: Vital Signs Temp Pulse Resp BP Pulse Ox 97.7 F L 99 18 105/74 98 12/01/20 09:55 12/01/20 09:55 12/01/20 09:55 12/01/20 09:55 12/01/20 09:55 Oxygen Flow Rate (L/min) 15 Oxygen Delivery Method Nasal Cannula Weight: 87 kg Body Mass Index (BMI) 26.5 Intake & Output: Intake and Output for Last 24 Hours 11/29/20 11/30/20 12/01/20 23:59 23:59 23:59 Intake Total 1691.66 / 1691.66 115 / 115 60 / 60 Output Total 200 / 200 1400 / 1400 150 / 150 Balance 1491.66 / 1491.66 -1285 / -1285 -90 / -90 Medical Nutrition Assessment Dietitian: Malnutrition Criteria Met Start: 11/25/20 12:15 Freq: Status: Active Protocol: Document 11/29/20 15:04 RMA (Rec: 11/29/20 15:04 RMA [id number]) Nutrition Malnutrition Evidence of Malnutrition Exists Yes Malnutrition (severe): Acute Illness/Injury Evidenced By Suboptimal Energy Intake ( Severe),Weight Loss (Severe) Intake Problem Inadequate Oral Intake Etiology related to increased oxygen needs/BiPAP and difficulty swallowing Signs/Symptoms as evidenced by need for altered diet consistency Status Active Problem Clinical Problem Acute Disease or Injury Related Malnutrition Etiology Severe protein calorie malnutrition in the context of acute illness related to inadequate oral intake/ swallowing difficulty Signs/Symptoms as evidenced by NPO x day #5 and wt loss~2% x past 1 week Status Active Problem Swallowing Difficulty Etiology related to coughing at meals and w/ PO diet Signs/Symptoms as evidenced by NPO and need for pureed solids and nectar- thick liquids as PO diet advanced Status Active Problem Recommendation Dietitian Recommendations/Changes Continue regular diet w/ consistency/texture as per JUNIOR LINUX SYSTEMS ADMINISTRATOR , currently pureed foods w/ thin liquids. Will add Ensure Pudding TID w/ meals. Lab / Micro Data Result Diagrams: 11/30/20 06:10 11/30/20 06:10 Labs: Laboratory Results - last 24 hr 11/30/20 17:12: POC Glucose 109 11/30/20 22:08: POC Glucose 84 12/01/20 06:34: POC Glucose 80 12/01/20 09:30: Valproic Acid 63 12/01/20 11:16: POC Glucose 136 H Micro: Microbiology 11/18/20 11:52 Blood Culture (Wb) - Anticubital Left Blood Culture - Final No growth in 5 days. 11/18/20 11:50 Blood Culture (Wb) - Anticubital Right Blood Culture - Final No growth in 5 days. 11/18/20 12:54 Urine Catheter - Catheter Urine Culture - Final Culture exhibits no growth. 11/18/20 17:42 Urine, Clean Catch Legionella Antigen - Final 11/18/20 17:42 Urine, Clean Catch Streptococcus pneumoniae Antigen (M - Final 11/18/20 17:00 Mucosa - Nose Respiratory Panel (PCR) - Final 11/18/20 14:20 Nasal Secretion SARS-CoV-2 Antigen (Rapid) - Final SARS-CoV-2 (COVID 19) Radiography Diagnostic Testing: Radiology Impression Chest X-Ray 12/01/20 10:48 IMPRESSION: Bibasilar infiltrates more prominent on the left side although there has been improvement as compared to prior study. Electronically Signed: Karthik Armstrong MD at 11:01 EDT , Service support , Physical Exam Narrative Physical exam: General: Alert, moaning, incoherent, agitated on 8 L of oxygen, not in respiratory distress HEENT: Atraumatic Oral: Moist Mucosa Neck: Supple Lungs: Diminished to auscultation Cardiovascular: HS I+II, regular, no murmurs Abdomen: Bowel Sounds Present, Soft, Non Tender Extremities: No edema Assessment & Plan Assessment/Plan (1) Pneumonia due to severe acute respiratory syndrome coronavirus 2 (SARS-CoV-2): (2) Acute respiratory failure with hypoxia: (3) Severe malnutrition: (4) Leukopenia: QUALIFIERS: Leukopenia type: lymphocytopenia Qualified Code(s): D72.810 - Lymphocytopenia (5) Thrombocytopenia: (6) Mental disability: PLAN: 1. Acute hypoxic respiratory failure secondary to acute COVID-19 pneumonia Patient's oxygen requirements have slightly improved Currently on 8 L of oxygen Continue on dexamethasone and Baracitinib 2. Pancytopenia secondary to acute COVID-19 infection, improved 3. Hyperglycemia secondary to steroid use, improved 4. Bipolar disorder, continue on clozapine, clonazepam, BuSpar 5. Constipation, on multiple stool softeners, resolved 6. Severe protein calorie malnutrition, patient with dysphagia on thickened liquids, oral intake Automatic Operator consulted Charges/Coding Visit Charges Inpatient E&M: 32409 Subs Hosp L2
--- NOTE | 2020-12-01 15:35 | CASEMGMT ---
Per Dr. Auguste, pt's brother/family would like to take pt home with HHC and hospital bed, as well as oxygen. Per previous CM note, they do have access to electricity or generator for whatever pt needs. Referral faxed to [facility] as they take [place] and service pt's area. Order placed for SN, PT/OT. CM to follow. SStlisa SHIPMAN CM
[2020-12-01 18:06] LABS: Bedside Glucose 124 mg/dL (70-110)
[2020-12-01] MEDS: Enoxaparin 40 MG/0.4 ML Syringe SC (21:28)
[2020-12-01] MEDS: CLOZAPINE 50 MG 100 MG PO (21:28)
[2020-12-01 22:05] LABS: Bedside Glucose 96 mg/dL (70-110)
[2020-12-02] VITALS (11 sets, daily range): BP systolic 91–112; BP diastolic 64–77; PULSE 69–107; RESP 18–20; TEMP 36.2–36.6; O2SAT 94–99
[2020-12-02] MEDS: LORazepam 2 MG/ML Syringe 1 MG IV ×2 (04:30→15:08)
[2020-12-02] MEDS: Acetaminophen 500 MG Tablet 1000 MG PO ×3 (06:36→22:44)
[2020-12-02] MEDS: busPIRone 15 MG TABLET PO ×3 (06:36→22:47)
[2020-12-02] MEDS: Valproic Acid 250 MG/5 ML UDC PO (06:37)
[2020-12-02] MEDS: Valproic Acid 250 MG/5 ML UDC 500 MG PO ×3 (06:37→22:43)
[2020-12-02] MEDS: Enoxaparin 40 MG/0.4 ML Syringe SC (06:37)
[2020-12-02] MEDS: Phenol/Sodium Phenolate 180ML 3 SPRAY MUCOUS MEM (06:43)
[2020-12-02 06:55] LABS: Bedside Glucose 89 mg/dL (70-110)
[2020-12-02 07:10] LABS: Absolute Lymphocyte Count 2.23 X10^3/uL (0.83-4.51); Absolute Neutrophil Count 16.4 X10^3/uL (2.0-7.7); Basophil# 0.02 X10^3/uL; Basophil% 0.1 % (0-1); Eosinophil# 0.01 X10^3/uL; Hematocrit 35.6 % (40-54); Lymphocyte # 2.23 X10^3/ul (0.83-4.51); Lymphocyte % 10.8 % (19-41); Mean Corp Hgb Conc 33.7 g/dL (32-36); Mean Corpuscular Hgb 29.6 pg (27.0-32.0); Mean Corpuscular Volume 87.7 fL (80-94); Mean Platelet Vol. 10.2 fl (6.2-12.0); Monocyte# 1.81 X10^3/uL; Monocyte% 8.8 % (0-10); NRBC Flagged by Analyzer 0 % (0-5); Neutrophil # 16.43 X10^3/uL (2.7-7.7); Neutrophil % 79.4 % (47-70); POSITIVE DIFFERENTIAL YES; Platelet Count 241 K/mm3 (150-450); RBC Distribution Width CV 15.5 % (11.6-14.6); RBC Distribution Width SD 49.3 fl (35.1-43.9); Red Blood Count 4.06 M/mm3 (4.6-6.2); White Blood Count 20.7 K/mm3 (4.4-11.0)
[2020-12-02 07:20] LABS: Differential Indicated SCAN CRITERIA MET
[2020-12-02 07:46] LABS: ALB/GLOB Ratio 0.6 RATIO (0.9-2.4); AST(SGOT) 25 U/L (15-37); Alanine Aminotransfer ALT/SGPT 29 U/L (16-61); Albumin, Serum 2.5 g/dL (3.2-5.0); Alkaline Phosphatase 51 U/L (45-117); Anion Gap 3 (5-15); BUN 21 mg/dL (7-18); BUN/Creat Ratio 35.2 RATIO (10-20); Calcium,Total 9.4 mg/dL (8.5-10.1); Chloride 103 mmol/L (98-107); EST Glomerular Filtration Rate 160 mL/min (>60); Est Glom Filt Rate - Afr Amer 194 mL/min (>60); Estimated Creatinine Clearance 181.43 ml/min; Globulin 4.5 g/dL (2.2-4.2); Glucose 76 mg/dL (74-106); Sodium Level 137 mmol/L (136-145)
[2020-12-02] MEDS: clonazePAM 0.5 MG Tablet PO (10:04)
[2020-12-02] MEDS: Benztropine 2 MG Tablet 1 MG PO ×2 (10:04→22:43)
[2020-12-02] MEDS: guaiFENesin/D-Methorphan TAB.SR.12H 1 TABLET PO ×2 (10:04→22:43)
[2020-12-02] MEDS: CLOZAPINE 50 MG PO (10:05)
[2020-12-02] MEDS: Ascorbic Acid 500 MG Tablet PO (10:05)
[2020-12-02] MEDS: dexAMETHasone 10 MG/ML Vial 6 MG IV (10:05)
[2020-12-02] MEDS: Senna/Docusate Sodium 1 Tablet 2 TABLET PO (10:05)
[2020-12-02] MEDS: Cholecalciferol (VIT D3) 25 MCG TABLET (1,000 UNITS) PO (10:05)
[2020-12-02] MEDS: Bisacodyl 10 MG Suppository RC (10:06)
[2020-12-02] MEDS: Na Biphos/Potassium Phosphate PACKET 1 PACKET PO (10:06)
[2020-12-02] MEDS: Polyethylene Glycol 3350 17 GM PACKET PO (10:06)
[2020-12-02] MEDS: Lidocaine 5% Patch 3 PATCH TOPICAL (10:06)
--- NOTE | 2020-12-02 11:09 | CASEMGMT ---
Addendum entered by Concepcion Rodriguez 12/02/20 12:28: Per Kaylee at [facility], she would like hospital bed scripted faxed today. Order obtained and faxed to [facility]. Kaylee aware to contact pt's brother, Reid, voices understanding. Johnnie SHIPMAN CM Addendum entered by Concepcion Rodriguez 12/02/20 12:07: Maureen[facility] contact info at [facility]: [phone]. Johnnie SHIPMAN CM Original Note: Call from Maureen at [facility] and she states they can accept pt and can do start of care 12/05 or 12/06. Maureen aware to contact brother, Reid, to set up time to do start of care and provided with brother's number. Green sheet on chart for hospital bed, home oxygen, HHC, and ambulance transport home. alisa Mathewser, updated on all, voices understanding and states they have electricity that they can use at home for O2 and bed. Brother voices no further questions/concerns. Johnnie SHIPMAN CM
[2020-12-02 13:19] LABS: Bedside Glucose 93 mg/dL (70-110)
[2020-12-02 15:20] LABS: Magnesium 2.2 mg/dL (1.6-2.6); Phosphorus 2.6 mg/dL (2.5-4.9)
[2020-12-02] MEDS: clonazePAM 1 MG Tablet PO (17:15)
[2020-12-02 17:25] LABS: Bedside Glucose 133 mg/dL (70-110)
[2020-12-02] MEDS: CLOZAPINE 50 MG 100 MG PO (22:45)
[2020-12-02] MEDS: Senna/Docusate Sodium 1 Tablet PO (22:45)
[2020-12-02 23:05] LABS: Bedside Glucose 96 mg/dL (70-110)
[2020-12-03] VITALS (14 sets, daily range): BP systolic 93–108; BP diastolic 60–82; PULSE 59–117; RESP 18–20; TEMP 35.6–36.6; O2SAT 94–100
[2020-12-03] MEDS: LORazepam 2 MG/ML Syringe 1 MG IV (04:28)
[2020-12-03] MEDS: 0.9% Saline Lock 10 ML Syringe IV (04:29)
[2020-12-03] MEDS: Acetaminophen 500 MG Tablet 1000 MG PO ×3 (06:21→23:06)
[2020-12-03] MEDS: busPIRone 15 MG TABLET PO ×3 (06:21→23:02)
[2020-12-03] MEDS: Enoxaparin 40 MG/0.4 ML Syringe SC (06:21)
[2020-12-03] MEDS: Valproic Acid 250 MG/5 ML UDC PO (06:22)
[2020-12-03] MEDS: Valproic Acid 250 MG/5 ML UDC 500 MG PO ×3 (06:22→23:01)
[2020-12-03 07:00] LABS: Bedside Glucose 87 mg/dL (70-110)
[2020-12-03 07:42] LABS: Absolute Lymphocyte Count 1.72 X10^3/uL (0.83-4.51); Absolute Neutrophil Count 9.7 X10^3/uL (2.0-7.7); Basophil# 0.01 X10^3/uL; Basophil% 0.1 % (0-1); Eosinophil# 0.01 X10^3/uL; Eosinophils% 0.1 % (0-5); Hemoglobin 10.6 g/dL (13.0-16.5); Lymphocyte # 1.72 X10^3/ul (0.83-4.51); Lymphocyte % 13.7 % (19-41); Mean Corp Hgb Conc 33.1 g/dL (32-36); Mean Corpuscular Hgb 29.1 pg (27.0-32.0); Mean Corpuscular Volume 87.9 fL (80-94); Mean Platelet Vol. 10.2 fl (6.2-12.0); Monocyte# 1.06 X10^3/uL; Monocyte% 8.4 % (0-10); NRBC Flagged by Analyzer 0 % (0-5); Neutrophil # 9.68 X10^3/uL (2.7-7.7); Neutrophil % 76.7 % (47-70); Platelet Count 210 K/mm3 (150-450); RBC Distribution Width CV 15.4 % (11.6-14.6); RBC Distribution Width SD 49.5 fl (35.1-43.9); Red Blood Count 3.64 M/mm3 (4.6-6.2); White Blood Count 12.6 K/mm3 (4.4-11.0)
[2020-12-03 08:07] LABS: ALB/GLOB Ratio 0.5 RATIO (0.9-2.4); AST(SGOT) 21 U/L (15-37); Alanine Aminotransfer ALT/SGPT 34 U/L (16-61); Albumin, Serum 2.1 g/dL (3.2-5.0); Alkaline Phosphatase 51 U/L (45-117); Anion Gap 6 (5-15); BUN 15 mg/dL (7-18); BUN/Creat Ratio 30.9 RATIO (10-20); Calcium,Total 9.2 mg/dL (8.5-10.1); Chloride 102 mmol/L (98-107); Creatinine, Serum 0.48 mg/dL (0.70-1.30); EST Glomerular Filtration Rate 203 mL/min (>60); Est Glom Filt Rate - Afr Amer 246 mL/min (>60); Estimated Creatinine Clearance 226.78 ml/min; Globulin 4.3 g/dL (2.2-4.2); Glucose 100 mg/dL (74-106); Potassium 3.7 mmol/L (3.5-5.1); Protein, Total 6.4 g/dL (6.4-8.2); Sodium Level 138 mmol/L (136-145)
--- NOTE | 2020-12-03 08:20 | CPS ---
pt decreased to 6 lpm. nurse aware of change
[2020-12-03] MEDS: Lidocaine 5% Patch 3 PATCH TOPICAL (08:56)
[2020-12-03] MEDS: guaiFENesin/D-Methorphan TAB.SR.12H 1 TABLET PO ×2 (08:56→23:02)
[2020-12-03] MEDS: Cholecalciferol (VIT D3) 25 MCG TABLET (1,000 UNITS) PO (08:57)
[2020-12-03] MEDS: Senna/Docusate Sodium 1 Tablet PO (08:57)
[2020-12-03] MEDS: Ascorbic Acid 500 MG Tablet PO (08:57)
[2020-12-03] MEDS: clonazePAM 1 MG Tablet PO ×2 (08:57→16:15)
[2020-12-03] MEDS: Benztropine 2 MG Tablet 1 MG PO ×2 (08:57→23:01)
[2020-12-03] MEDS: CLOZAPINE 50 MG PO (08:58)
[2020-12-03] MEDS: Bisacodyl 10 MG Suppository RC (09:14)
[2020-12-03 13:16] LABS: Bedside Glucose 102 mg/dL (70-110)
--- NOTE | 2020-12-03 15:49 | PCM.PN.HOSP ---
Subjective Subjective Patient was seen and examined. Patient appears more improved. On 8 L of oxygen. No more agitation. Objective Data Objective Data Vital Signs: Vital Signs Temp Pulse Resp BP Pulse Ox 96.5 F L 104 H 18 94/67 96 12/03/20 14:00 12/03/20 14:52 12/03/20 14:00 12/03/20 14:00 12/03/20 14:00 Oxygen Flow Rate (L/min) 5 Oxygen Delivery Method Nasal Cannula Weight: 83.3 kg Body Mass Index (BMI) 26.5 Intake & Output: Intake and Output for Last 24 Hours 12/01/20 12/02/20 12/03/20 23:59 23:59 23:59 Intake Total 60 / 120 340 / 440 550 / 550 Output Total 650 / 800 950 / 1500 1350 / 1350 Balance -590 / -680 -610 / -1060 -800 / -800 Medical Nutrition Assessment Dietitian: Malnutrition Criteria Met Start: 11/25/20 12:15 Freq: Status: Active Protocol: Document 11/29/20 15:04 RMA (Rec: 11/29/20 15:04 RMA [id number]) Nutrition Malnutrition Evidence of Malnutrition Exists Yes Malnutrition (severe): Acute Illness/Injury Evidenced By Suboptimal Energy Intake ( Severe),Weight Loss (Severe) Intake Problem Inadequate Oral Intake Etiology related to increased oxygen needs/BiPAP and difficulty swallowing Signs/Symptoms as evidenced by need for altered diet consistency Status Active Problem Clinical Problem Acute Disease or Injury Related Malnutrition Etiology Severe protein calorie malnutrition in the context of acute illness related to inadequate oral intake/ swallowing difficulty Signs/Symptoms as evidenced by NPO x day #5 and wt loss~2% x past 1 week Status Active Problem Swallowing Difficulty Etiology related to coughing at meals and w/ PO diet Signs/Symptoms as evidenced by NPO and need for pureed solids and nectar- thick liquids as PO diet advanced Status Active Problem Recommendation Dietitian Recommendations/Changes Continue regular diet w/ consistency/texture as per FILL PLANT OPERATOR , currently pureed foods w/ thin liquids. Will add Ensure Pudding TID w/ meals. Lab / Micro Data Result Diagrams: 12/03/20 07:07 12/03/20 07:07 Labs: Laboratory Results - last 24 hr 12/02/20 17:17: POC Glucose 133 H 12/02/20 22:30: POC Glucose 96 12/03/20 06:17: POC Glucose 87 12/03/20 07:07: WBC 12.6 H, RBC 3.64 L, Hgb 10.6 L, Hct 32.0 L, MCV 87.9, MCH 29.1, MCHC 33.1, RDW Std Deviation 49.5 H, RDW Coeff of Adrian 15.4 H, Plt Count 210, MPV 10.2, Immature Gran % (Auto) 1.000 H, Neut % (Auto) 76.7 H, Lymph % (Auto) 13.7 L, [place] % (Auto) 8.4, Eos % (Auto) 0.1, Baso % (Auto) 0.1, Absolute Neuts (auto) 9.7 H, Absolute Lymphs (auto) 1.72, Nucleated RBC % 0 12/03/20 07:07: Sodium 138, Potassium 3.7, Chloride 102, Carbon Dioxide 30.0, Anion Gap 6, BUN 15, Creatinine 0.48 L, Estim Creat Clear Calc 226.78, Est GFR (MDRD) Af Amer 246, Est GFR (MDRD) Non-Af 203, BUN/Creatinine Ratio 30.9 H, Glucose 100, Calcium 9.2, Total Bilirubin 0.50, AST 21, ALT 34, Alkaline Phosphatase 51, Total Protein 6.4, Albumin 2.1 L, Globulin 4.3 H, Albumin/Globulin Ratio 0.5 L 12/03/20 11:21: POC Glucose 102 Micro: Microbiology 12/02/20 10:45 Urine, Random Legionella Antigen - Final 12/02/20 10:45 Urine, Random Streptococcus pneumoniae Antigen (M - Final 11/18/20 11:52 Blood Culture (Wb) - Anticubital Left Blood Culture - Final No growth in 5 days. 11/18/20 11:50 Blood Culture (Wb) - Anticubital Right Blood Culture - Final No growth in 5 days. 11/18/20 12:54 Urine Catheter - Catheter Urine Culture - Final Culture exhibits no growth. 11/18/20 17:42 Urine, Clean Catch Legionella Antigen - Final 11/18/20 17:42 Urine, Clean Catch Streptococcus pneumoniae Antigen (M - Final 11/18/20 17:00 Mucosa - Nose Respiratory Panel (PCR) - Final 11/18/20 14:20 Nasal Secretion SARS-CoV-2 Antigen (Rapid) - Final SARS-CoV-2 (COVID 19) Physical Exam Narrative Physical exam: General: Alert, moaning, incoherent, agitated on 8 L of oxygen, not in respiratory distress HEENT: Atraumatic Oral: Moist Mucosa Neck: Supple Lungs: Diminished to auscultation Cardiovascular: HS I+II, regular, no murmurs Abdomen: Bowel Sounds Present, Soft, Non Tender Extremities: No edema Assessment & Plan Assessment/Plan (1) Pneumonia due to severe acute respiratory syndrome coronavirus 2 (SARS-CoV-2): (2) Acute respiratory failure with hypoxia: (3) Severe malnutrition: (4) Leukopenia: QUALIFIERS: Leukopenia type: lymphocytopenia Qualified Code(s): D72.810 - Lymphocytopenia (5) Thrombocytopenia: (6) Mental disability: PLAN: 1. Acute hypoxic respiratory failure secondary to acute COVID-19 pneumonia Patient's oxygen requirements have slightly improved Currently on 8 L of oxygen Completed dexamethasone and baricitinib 2. Pancytopenia secondary to acute COVID-19 infection, improved 3. Hyperglycemia secondary to steroid use, improved 4. Bipolar disorder, continue on clozapine, clonazepam, BuSpar 5. Constipation, on multiple stool softeners, resolved 6. Severe protein calorie malnutrition, patient with dysphagia on thickened liquids, oral intake Transformer Shop Supervisor consulted Charges/Coding Visit Charges Inpatient E&M: 89707 Subs Hosp L2
[2020-12-03 16:26] LABS: Bedside Glucose 97 mg/dL (70-110)
[2020-12-03] MEDS: CLOZAPINE 50 MG 100 MG PO (23:02)
[2020-12-03 23:21] LABS: Bedside Glucose 83 mg/dL (70-110)
[2020-12-04] VITALS (19 sets, daily range): BP systolic 81–95; BP diastolic 58–75; PULSE 88–109; RESP 14–24; TEMP 36.3–37; O2SAT 92–97
[2020-12-04] MEDS: LORazepam 2 MG/ML Syringe 1 MG IV (03:01)
[2020-12-04] MEDS: Valproic Acid 250 MG/5 ML UDC 500 MG PO ×3 (06:22→21:25)
[2020-12-04] MEDS: busPIRone 15 MG TABLET PO ×3 (06:22→21:29)
[2020-12-04] MEDS: Acetaminophen 500 MG Tablet 1000 MG PO ×3 (06:22→21:26)
[2020-12-04] MEDS: Valproic Acid 250 MG/5 ML UDC PO (06:22)
[2020-12-04] MEDS: Enoxaparin 40 MG/0.4 ML Syringe SC (06:23)
[2020-12-04 06:50] LABS: Bedside Glucose 77 mg/dL (70-110)
[2020-12-04] MEDS: guaiFENesin/D-Methorphan TAB.SR.12H 1 TABLET PO ×2 (08:54→21:26)
[2020-12-04] MEDS: Ascorbic Acid 500 MG Tablet PO (08:54)
[2020-12-04] MEDS: Lidocaine 5% Patch 3 PATCH TOPICAL (08:54)
[2020-12-04] MEDS: Benztropine 2 MG Tablet 1 MG PO ×2 (08:54→21:25)
[2020-12-04] MEDS: Cholecalciferol (VIT D3) 25 MCG TABLET (1,000 UNITS) PO (08:55)
[2020-12-04] MEDS: CLOZAPINE 50 MG PO (08:55)
[2020-12-04] MEDS: clonazePAM 1 MG Tablet PO ×2 (09:00→16:10)
--- NOTE | 2020-12-04 15:29 | PCM.PN.HOSP ---
Subjective Subjective Follow-up on acute respiratory failure/COVID-19 pneumonia: Patient was seen and examined. He appears very calm. Currently on 2 L of oxygen. Objective Data Objective Data Vital Signs: Vital Signs Temp Pulse Resp BP Pulse Ox 97.5 F L 106 H 18 83/65 L 97 12/04/20 14:00 12/04/20 14:32 12/04/20 14:00 12/04/20 14:00 12/04/20 14:00 Oxygen Flow Rate (L/min) 2 Oxygen Delivery Method Nasal Cannula Weight: 78.2 kg Body Mass Index (BMI) 26.5 Intake & Output: Intake and Output for Last 24 Hours 12/02/20 12/03/20 12/04/20 23:59 23:59 23:59 Intake Total 340 / 440 1070 / 1070 540 / 540 Output Total 950 / 1500 2800 / 2800 650 / 650 Balance -610 / -1060 -1730 / -1730 -110 / -110 Medical Nutrition Assessment Dietitian: Malnutrition Criteria Met Start: 11/25/20 12:15 Freq: Status: Active Protocol: Document 11/29/20 15:04 RMA (Rec: 11/29/20 15:04 RMA [id number]) Nutrition Malnutrition Evidence of Malnutrition Exists Yes Malnutrition (severe): Acute Illness/Injury Evidenced By Suboptimal Energy Intake ( Severe),Weight Loss (Severe) Intake Problem Inadequate Oral Intake Etiology related to increased oxygen needs/BiPAP and difficulty swallowing Signs/Symptoms as evidenced by need for altered diet consistency Status Active Problem Clinical Problem Acute Disease or Injury Related Malnutrition Etiology Severe protein calorie malnutrition in the context of acute illness related to inadequate oral intake/ swallowing difficulty Signs/Symptoms as evidenced by NPO x day #5 and wt loss~2% x past 1 week Status Active Problem Swallowing Difficulty Etiology related to coughing at meals and w/ PO diet Signs/Symptoms as evidenced by NPO and need for pureed solids and nectar- thick liquids as PO diet advanced Status Active Problem Recommendation Dietitian Recommendations/Changes Continue regular diet w/ consistency/texture as per ASSOC[employer]ATE [employer] SCIENCE IN NURSING , currently pureed foods w/ thin liquids. Will add Ensure Pudding TID w/ meals. Lab / Micro Data Result Diagrams: 12/03/20 07:07 12/03/20 07:07 Labs: Laboratory Results - last 24 hr 12/03/20 16:14: POC Glucose 97 12/03/20 22:58: POC Glucose 83 12/04/20 06:21: POC Glucose 77 Micro: Microbiology 12/02/20 10:45 Urine, Random Legionella Antigen - Final 12/02/20 10:45 Urine, Random Streptococcus pneumoniae Antigen (M - Final 11/18/20 11:52 Blood Culture (Wb) - Anticubital Left Blood Culture - Final No growth in 5 days. 11/18/20 11:50 Blood Culture (Wb) - Anticubital Right Blood Culture - Final No growth in 5 days. 11/18/20 12:54 Urine Catheter - Catheter Urine Culture - Final Culture exhibits no growth. 11/18/20 17:42 Urine, Clean Catch Legionella Antigen - Final 11/18/20 17:42 Urine, Clean Catch Streptococcus pneumoniae Antigen (M - Final 11/18/20 17:00 Mucosa - Nose Respiratory Panel (PCR) - Final 11/18/20 14:20 Nasal Secretion SARS-CoV-2 Antigen (Rapid) - Final SARS-CoV-2 (COVID 19) Physical Exam Narrative Physical exam: General: Alert, moaning, incoherent, calm on 2L of oxygen, not in respiratory distress HEENT: Atraumatic Oral: Moist Mucosa Neck: Supple Lungs: Diminished to auscultation Cardiovascular: HS I+II, regular, no murmurs Abdomen: Bowel Sounds Present, Soft, Non Tender Extremities: No edema Assessment & Plan Assessment/Plan (1) Pneumonia due to severe acute respiratory syndrome coronavirus 2 (SARS-CoV-2): (2) Acute respiratory failure with hypoxia: (3) Severe malnutrition: (4) Leukopenia: QUALIFIERS: Leukopenia type: lymphocytopenia Qualified Code(s): D72.810 - Lymphocytopenia (5) Thrombocytopenia: (6) Mental disability: PLAN: 1. Acute hypoxic respiratory failure secondary to acute COVID-19 pneumonia, resolving Currently on 2 L of oxygen Completed dexamethasone and baricitinib 2. Pancytopenia secondary to acute COVID-19 infection, improved 3. Hyperglycemia secondary to steroid use, improved 4. Bipolar disorder, continue on clozapine, clonazepam, BuSpar 5. Constipation, on multiple stool softeners, resolved 6. Severe protein calorie malnutrition, on supplements, nurse practitioner physicians assistant following Summary: 40-year-old male with past medical history of MRDD, who comes in with progressive shortness of breath ongoing for 4 days. Patient was diagnosed with acute hypoxic respiratory failure secondary to acute COVID-19 pneumonia. He was admitted on 11/18/20. He had a long and tortuous hospital course. He had pancytopenia requiring with held during all clozapine and anticoagulation. His oxygen status got worse and he was on BiPAPand Airvo for a long time. He completed dexamethasone and baricitinib. He had prolonged. Of agitation because he was taking off his antipsychotics for a while. These were slowly resumed. Patient also had prolonged constipation. He got multiple stool softeners and that is resolved. Prescription for hospital bed was signed at the request of family and they will be delivered on 12/05/20. Patient should be discharged on 12/05/20. He may require oxygen at discharge Charges/Coding Visit Charges Inpatient E&M: 91602 Subs Hosp L2
[2020-12-04] MEDS: Senna/Docusate Sodium 1 Tablet PO (21:25)
[2020-12-04] MEDS: CLOZAPINE 50 MG 100 MG PO (21:29)
[2020-12-05] VITALS (9 sets, daily range): BP systolic 91–104; BP diastolic 68–71; PULSE 93–99; RESP 11–20; TEMP 36.4–36.6; O2SAT 82–96
[2020-12-05 05:38] LABS: Absolute Lymphocyte Count 1.94 X10^3/uL (0.83-4.51); Absolute Neutrophil Count 6.7 X10^3/uL (2.0-7.7); Basophil# 0.03 X10^3/uL; Basophil% 0.3 % (0-1); Eosinophil# 0.07 X10^3/uL; Eosinophils% 0.7 % (0-5); Hematocrit 33.2 % (40-54); Hemoglobin 10.7 g/dL (13.0-16.5); Lymphocyte # 1.94 X10^3/ul (0.83-4.51); Lymphocyte % 19.1 % (19-41); Mean Corp Hgb Conc 32.2 g/dL (32-36); Mean Corpuscular Hgb 28.9 pg (27.0-32.0); Mean Corpuscular Volume 89.7 fL (80-94); Monocyte# 1.27 X10^3/uL; Monocyte% 12.5 % (0-10); NRBC Flagged by Analyzer 0 % (0-5); Neutrophil # 6.68 X10^3/uL (2.7-7.7); Neutrophil % 65.8 % (47-70); Platelet Count 214 K/mm3 (150-450); RBC Distribution Width CV 15.9 % (11.6-14.6); RBC Distribution Width SD 51.1 fl (35.1-43.9); White Blood Count 10.2 K/mm3 (4.4-11.0)
[2020-12-05] MEDS: Acetaminophen 500 MG Tablet 1000 MG PO ×2 (06:04→14:01)
[2020-12-05] MEDS: Enoxaparin 40 MG/0.4 ML Syringe SC (06:05)
[2020-12-05] MEDS: busPIRone 15 MG TABLET PO ×2 (06:05→14:02)
[2020-12-05] MEDS: Valproic Acid 250 MG/5 ML UDC 500 MG PO ×2 (06:05→14:01)
[2020-12-05] MEDS: Valproic Acid 250 MG/5 ML UDC PO (06:05)
[2020-12-05 06:10] LABS: ALB/GLOB Ratio 0.5 RATIO (0.9-2.4); AST(SGOT) 16 U/L (15-37); Alanine Aminotransfer ALT/SGPT 38 U/L (16-61); Albumin, Serum 2.2 g/dL (3.2-5.0); Alkaline Phosphatase 44 U/L (45-117); Anion Gap 5 (5-15); BUN 11 mg/dL (7-18); BUN/Creat Ratio 17.3 RATIO (10-20); Calcium,Total 9.4 mg/dL (8.5-10.1); Chloride 103 mmol/L (98-107); Creatinine, Serum 0.64 mg/dL (0.70-1.30); EST Glomerular Filtration Rate 149 mL/min (>60); Est Glom Filt Rate - Afr Amer 180 mL/min (>60); Estimated Creatinine Clearance 170.09 ml/min; Globulin 4.5 g/dL (2.2-4.2); Glucose 90 mg/dL (74-106); Potassium 4.2 mmol/L (3.5-5.1); Protein, Total 6.7 g/dL (6.4-8.2); Sodium Level 138 mmol/L (136-145)
[2020-12-05 09:23] LABS: Pathologist Review Reviewed
[2020-12-05] MEDS: Senna/Docusate Sodium 1 Tablet PO (09:40)
[2020-12-05] MEDS: Cholecalciferol (VIT D3) 25 MCG TABLET (1,000 UNITS) PO (09:40)
[2020-12-05] MEDS: Benztropine 2 MG Tablet 1 MG PO (09:40)
[2020-12-05] MEDS: clonazePAM 1 MG Tablet PO (09:40)
[2020-12-05] MEDS: Ascorbic Acid 500 MG Tablet PO (09:41)
[2020-12-05] MEDS: CLOZAPINE 50 MG PO (09:41)
[2020-12-05] MEDS: guaiFENesin/D-Methorphan TAB.SR.12H 1 TABLET PO (09:41)
[2020-12-05] MEDS: Lidocaine 5% Patch 3 PATCH TOPICAL (09:45)
--- NOTE | 2020-12-05 09:57 | PCM.DC ---
Discharge Instructions Diet Discharge Diet: No restrictions Activity Discharge Activity: Return to Normal Activity Dressing / Incision Call your doctor if you observe: Fever of 101 or Higher, Change in Color, Inability to urinate and Inability to have a bowel movement Follow Up Care Please Follow Up With: Carlo Wellington DO When: 1 week Test Results: Test results from this visit will be discussed in further detail at your follow-up appointment, if applicable. Discharge Plan Admission Admit Date/Time: 11/18/20 15:06 Primary Reason for Your Visit: Covid 19 Attending Provider: Baron Morton Primary Care Provider: Carlo Wellington Consulting Providers: Chris Busby ; Surya Moser ; Italia Roe NP ; Damien Palma Discharge Orders/Prescriptions Prescriptions: New sennosides-docusate sodium [Stool Softener-Stimulant Laxat] 8.6-50 mg Tablet 1 tab PO BID Qty: 0 RF: 0 clonazepam 1 mg Tablet 1 mg PO BID 30 Days Qty: 60 RF: 0 Continued clozapine 100 MG tablet 100 mg PO QHS RF: 0 divalproex 500 MG tablet,delayed release (DR/EC) 500 mg PO TID RF: 0 benztropine 1 MG tablet 1 mg PO BID RF: 0 buspirone 15 MG tablet 15 mg PO TID RF: 0 clozapine 50 MG tablet 50 mg PO DAILY RF: 0 divalproex 250 MG tablet 250 mg PO BREAKFAST RF: 0 Discontinued Clonazepam 0.5 MG tablet 0.5 mg PO BID RF: 0 Referrals / Follow Up: Carlo Wellington DO [Primary Care Provider] - Disposition Disposition (needs filled in before D/C Order can be placed): Home, Self Care
--- NOTE | 2020-12-05 10:07 | DS.PCM_ITS ---
Documented by User: NISHA Valdivia 12/05/20 10:17 Providers Date of Admission: 11/18/20 Primary Care Physician: Dr. Carlo Wellington DO Consultations 11/18/20 16:22 Consult: Supervisor Fusing Room / Pulmonary Medicine Routine Consulting Provider: Pulmonary Medicine low [place] Reason for Consult: Covid-19 EMERGENT Consult: No MD Notified: Yes Date Notified: 11/19/20 Time Notified: 06:32 Method of Notification: Text 11/19/20 07:50 Consult: Infectious Disease Routine Consulting Provider: Damien Palma Reason for Consult: Bariticinib approval, hyoxia on 50% o2 EMERGENT Consult: No MD Notified: Yes Date Notified: 11/19/20 Time Notified: 13:05 Method of Notification: Verbal Reason For Visit: RESP FAILURE/COVID-19 Diagnosis Discharge Diagnosis (1) Pneumonia due to severe acute respiratory syndrome coronavirus 2 (SARS-CoV-2): Status: Acute Code(s): U07.1 - COVID-19; J12.82 - Pneumonia due to coronavirus disease 2019 (2) Acute respiratory failure with hypoxia: Status: Acute Code(s): J96.01 - Acute respiratory failure with hypoxia (3) Severe malnutrition: Status: Acute Code(s): E43 - Unspecified severe protein-calorie malnutrition (4) Leukopenia: Status: Acute Code(s): D72.819 - Decreased white blood cell count, unspecified Qualifiers: Leukopenia type: lymphocytopenia Qualified Code(s): D72.810 - Lymphocy topenia (5) Thrombocytopenia: Status: Acute Code(s): D69.6 - Thrombocytopenia, unspecified (6) Mental disability: Status: Acute Code(s): F79 - Unspecified intellectual disabilities Medications at Discharge Home Medications benztropine 1 mg PO BID 04/18/18 buspirone 15 mg PO TID 04/18/18 clozapine 50 mg PO DAILY 04/18/18 clozapine 100 mg PO QHS 04/18/18 divalproex 500 mg PO TID 04/18/18 divalproex 250 mg PO BREAKFAST 07/17/18 clonazepam 1 mg PO BID 30 Days #60 tab 12/05/20 diaper,brief,adult,disposable [Briefs] #10 ea 12/05/20 sennosides-docusate sodium [Stool Softener-Stimulant Laxat] 1 tab PO BID #0 tab 12/05/20 Hospital Course Operations None Procedures EKG Summary of Care Provided Minutes Spent on Discharge: 35 Hospital Course: Patient is a 40-year-old male who presented to the ER on 12-08 with reports of fever, generalized weakness x5 days. Patient was diagnosed with acute hypoxic respiratory failure secondary to Covid 19 pneumonia. Patient received a complete dose of dexamethasone and remdesivir and imatinib. Chest x- ray and CT confirmed bilateral pneumonia, no acute PE. Patient had been taken off antipsychotic medications due to pancytopenia but has been reinitiated on medications prior to discharge and is doing well. Patient did receive subcutaneous insulin coverage while admitted due to administration of steroids however patient does not have diabetes A1c, 5.6. Patient will be discharged on oxygen 4 L nasal cannula, along with a hospital bed. Patient is to be taken c are of by his family, mom and sister have been taking care of patient since due to developmental disability. Physical Exam Const alert General Appearance: cooperative and comfortable HEENT normocephalic and head/scalp atraumatic Eyes conjunctivae normal and no scleral icterus Neck supple and thyroid normal General: trachea midline Resp normal respiratory effort, normal air movement and clear to auscultation bilaterally Effort and Inspection: tachypneic Cardio regular rate, regular rhythm, S1 normal heart sound, S2 normal heart sound and peripheral pulses 2+ throughout GI normal to inspection, nondistended, normoactive bowel sounds, soft to palpation and non-tender Extremity normal capillary refill and no clubbing, cyanosis or edema General Extremity: no tenderness to palpation of joints or extremities Skin skin turgor normal General Skin Exam: no breakdown Lesions: no lesions Rashes: no rashes Neuro moves all extremities, no focal motor deficits and no sensory deficits noted Speech: speech normal Motor Exam: general weakness Psych affect normal Appearance: appropriate Medical Records Data Medical Nutrition Assessment Dietitian: Malnutrition Criteria Met Start: 11/25/20 12:15 Freq: Status: Active Protocol: Document 11/29/20 15:04 RMA (Rec: 11/29/20 15:04 RMA [id number]) Nutrition Malnutrition Evidence of Malnutrition Exists Yes Malnutrition (severe): Acute Illness/Injury Evidenced By Suboptimal Energy Intake ( Severe),Weight Loss (Severe) Intake Problem Inadequate Oral Intake Etiology related to increased oxygen needs/BiPAP and difficulty swallowing Signs/Symptoms as evidenced by need for altered diet consistency Status Active Problem Clinical Problem Acute Disease or Injury Related Malnutrition Etiology Severe protein calorie malnutrition in the context of acute illness related to inadequate oral intake/ swallowing difficulty Signs/Symptoms as evidenced by NPO x day #5 and wt loss~2% x past 1 week Status Active Problem Swallowing Difficulty Etiology related to coughing at meals and w/ PO diet Signs/Symptoms as evidenced by NPO and need for pureed solids and nectar- thick liquids as PO diet advanced Status Active Problem Recommendation Dietitian Recommendations/Changes Continue regular diet w/ consistency/texture as per CIGAR MAKING MACHINE OPERATOR , currently pureed foods w/ thin liquids. Will add Ensure Pudding TID w/ meals. Weight / BMI Weight Weight: 183 lb 3.266 oz Body Mass Index (BMI) 26.5 ABG / Lab / Microbiology Data Result Diagrams: 12/05/20 05:25 12/05/20 05:25 Laboratory: Laboratory Results - last 24 hr 12/02/20 06:15: Diff Path Review Reviewed 12/05/20 05:25: WBC 10.2, RBC 3.70 L, Hgb 10.7 L, Hct 33.2 L, MCV 89.7, MCH 28.9, MCHC 32.2, RDW Std Deviation 51.1 H, RDW Coeff of Adrian 15.9 H, Plt Count 214, MPV 10.0, Immature Gran % (Auto) 1.600 H, Neut % (Auto) 65.8, Lymph % (Auto) 19.1, [place] % (Auto) 12.5 H, Eos % (Auto) 0.7, Baso % (Auto) 0.3, Absolute Neuts (auto) 6.7, Absolute Lymphs (auto) 1.94, Nucleated RBC % 0 12/05/20 05:25: Sodium 138, Potassium 4.2, Chloride 103, Carbon Dioxide 30.0, A nion Gap 5, BUN 11, Creatinine 0.64 L, Estim Creat Clear Calc 170.09, Est GFR (MDRD) Af Amer 180, Est GFR (MDRD) Non-Af 149, BUN/Creatinine Ratio 17.3, Glucose 90, Calcium 9.4, Total Bilirubin 0.40, AST 16, ALT 38, Alkaline Phosphatase 44 L, Total Protein 6.7, Albumin 2.2 L, Globulin 4.5 H, [place] min/Globulin Ratio 0.5 L Microbiology: Microbiology 12/02/20 10:45 Urine, Random Legionella Antigen - Final 12/02/20 10:45 Urine, Random Streptococcus pneumoniae Antigen (M - Final 11/18/20 11:52 Blood Culture (Wb) - Anticubital Left Blood Culture - Final No growth in 5 days. 11/18/20 11:50 Blood Culture (Wb) - Anticubital Right Blood Culture - Final No growth in 5 days. 11/18/20 12:54 Urine Catheter - Catheter Urine Culture - Final Culture exhibits no growth. 11/18/20 17:42 Urine, Clean Catch Legionella Antigen - Final 11/18/20 17:42 Urine, Clean Catch Streptococcus pneumoniae Antigen (M - Final 11/18/20 17:00 Mucosa - Nose Respiratory Panel (PCR) - Final 11/18/20 14:20 Nasal Secretion SARS-CoV-2 Antigen (Rapid) - Final SARS-CoV-2 (COVID 19) D/C Instructions Discharge Diet: No restrictions Call your doctor if you observe: Fever of 101 or Higher, Change in Color, Inability to urinate and Inability to have a bowel movement Please Follow Up With: Carlo Wellington, When: 1 week Meaningful Use Info Meaningful Use Diagnoses (Choose all that apply): None applicable Discharge Plan Admission Admit Date/Time: 11/18/20 15:06 Primary Reason for Your Visit: Covid 19 Attending Provider: Baron Morton Primary Care Provider: Carlo Wellington Consulting Providers: Chris Busby ; Surya Moser ; Italia Roe NP ; Damien Palma Discharge Orders/Prescriptions Prescriptions: New sennosides-docusate sodium [Stool Softener-Stimulant Laxat] 8.6-50 mg Tablet 1 tab PO BID Qty: 0 RF: 0 clonazepam 1 mg Tablet 1 mg PO BID 30 Days Qty: 60 RF: 0 (DME) Briefs Misc See Rx Instructions .ROUTE .MEDSUPPLY Qty: 10 RF: 12 Continued clozapine 100 MG tablet 100 mg PO QHS RF: 0 divalproex 500 MG tablet,delayed release (DR/EC) 500 mg PO TID RF: 0 benztropine 1 MG tablet 1 mg PO BID RF: 0 buspirone 15 MG tablet 15 mg PO TID RF: 0 clozapine 50 MG tablet 50 mg PO DAILY RF: 0 divalproex 250 MG tablet 250 mg PO BREAKFAST RF: 0 Discontinued Clonazepam 0.5 MG tablet 0.5 mg PO BID RF: 0 Referrals / Follow Up: Carlo Wellington DO [Primary Care Provider] - Disposition Disposition (needs filled in before D/C Order can be placed): Home, Self Care Documented by User: Dr. Baron Morton MD 12/05/20 14:36 Providers Date of Admission: 11/18/20 Reason For Visit: RESP FAILURE/COVID-19 Medications at Discharge Home Medications benztropine 1 mg PO BID 04/18/18 buspirone 15 mg PO TID 04/18/18 clozapine 50 mg PO DAILY 04/18/18 clozapine 100 mg PO QHS 04/18/18 divalproex 500 mg PO TID 04/18/18 divalproex 250 mg PO BREAKFAST 07/17/18 clonazepam 1 mg PO BID 30 Days #60 tab 12/05/20 diaper,brief,adult,disposable [Briefs] #10 ea 12/05/20 sennosides-docusate sodium [Stool Softener-Stimulant Laxat] 1 tab PO BID #0 tab 12/05/20 Hospital Course Summary of Care Provided Minutes Spent on Discharge: 45 Hospital Course: This patient was seen in conjunction with Zeynep Werner NP-C . I have independently interviewed and examined the patient and reviewed pertinent historical, laboratory, and other data. Please refer to Zeynep Werner NP-Cnote for details of this patient's presentation, findings, and recommendations. I have reviewed Zeynep Werner NP-C note and concur with documented findings. In brief, a 40-year-old gentleman admitted with SARS-CoV-2 pneumonia. Patient had a protracted stay. He however did respond to treatment and was discharged home after 17 days of hospitalization Hospital course: As documented above ABG / Lab / Microbiology Data Result Diagrams: 12/05/20 05:25 12/05/20 05:25 Discharge Plan Admission Admit Date/Time: 11/18/20 15:06 Primary Reason for Your Visit: Covid 19 Attending Provider: Baron Morton Primary Care Provider: Carlo Wellington Consulting Providers: Chris Busby ; Surya Moser ; Italia Roe EXPLOSIVES DETONATOR ; Damien Palma Discharge Orders/Prescriptions Prescriptions: New sennosides-docusate sodium [Stool Softener-Stimulant Laxat] 8.6-50 mg Tablet 1 tab PO BID Qty: 0 RF: 0 clonazepam 1 mg Tablet 1 mg PO BID 30 Days Qty: 60 RF: 0 (DME) Briefs Misc See Rx Instructions .ROUTE .MEDSUPPLY Qty: 10 RF: 12 Continued clozapine 100 MG tablet 100 mg PO QHS RF: 0 divalproex 500 MG tablet,delayed release (DR/EC) 500 mg PO TID RF: 0 benztropine 1 MG tablet 1 mg PO BID RF: 0 buspirone 15 MG tablet 15 mg PO TID RF: 0 clozapine 50 MG tablet 50 mg PO DAILY RF: 0 divalproex 250 MG tablet 250 mg PO BREAKFAST RF: 0 Discontinued Clonazepam 0.5 MG tablet 0.5 mg PO BID RF: 0 Referrals / Follow Up: Carlo Wellington DO [Primary Care Provider] - Disposition Disposition (needs filled in before D/C Order can be placed): Home, Self Care Charges/Coding Visit Charges Inpatient E&M: 95012 Disch Hosp
--- NOTE | 2020-12-05 10:43 | CASEMGMT ---
Addendum entered by Concepcion Rodriguez 12/05/20 15:27: 1415 Per Shaw at [facility] [place], they have a paratransit driver delivering oxygen to pt's home at this time so pt's transport home can be set up. Shaw also aware to notify pt's brother, Reid, regarding oxygen and hospital bed set up, voices understanding. Irma, [employer] secretary board of commissioners, aware and transport set up for 1500. Johnnie SHIPMAN CM Addendum entered by Concepcion Rodriguez 12/05/20 13:32: D/C summ/instructions faxed to [facility] and call to Maureen at [facility] to notify of pt discharge today. Johnnie SHIPMAN CM Addendum entered by Concepcion Rodriguez 12/05/20 12:48: Pt qualifies for 2L nc continuous and order faxed to [facility] [place]. Call to Shaw at [facility] [place] to notify that pt will need to have oxygen delivered to home prior to discharge from hospital, she voices understanding but is unsure when bed will be delivered. Pt's brother updated on all, voices understanding. Johnnie SHIPMAN CM Original Note: Per [facility] [place], they should have hospital bed in stock for pt today. This RN ANGEL awaiting oxygen testing to fax home oxygen referral to [facility] [place] as well. Johnnie SHIPMAN CM
--- NOTE | 2020-12-06 14:11 | CASEMGMT ---
UMBERTO ORTIZ Discharge Follow-up Phone Call: JUAN CARLOS: Eve Strata: 3 Call Date: 12/06/20 Discharge Date: 12/05/20 Time of Call: 1410 Duration: 3 min Admitting Diagnosis: Covid UMBERTO ORTIZ completed follow-up phone call after recent hospitalization. Patient's father answered the phone and states patient is doing good. Still waiting on hospital bed but oxygen was delivered without any issues. Patient was able to fill prescriptions without and issues. Father states [facility] had been out to see patient today. Father had no further questions or concerns at this time.
== END 2020-12-05 15:06 | disposition home or self-care (01) | DRG 137 ==
LOC: ED 12:24 → PCU 15:57
PROVIDERS: Internal Medicine; Admitting Provider Internal Medicine; Emergency Provider Student in an Organized Health Care Education/Training Program; PCP Family Medicine; Visit Provider Internal Medicine
DX: U07.1 COVID-19 (principal); J12.82 Pneumonia due to coronavirus disease 2019; J96.01 Acute respiratory failure with hypoxia; E43 Unspecified severe protein-calorie malnutrition; D61.818 Other pancytopenia; T42.4X5A Adverse effect of benzodiazepines, initial encounter; F81.9 Developmental disorder of scholastic skills, unspecified; F79 Unspecified intellectual disabilities; K59.00 Constipation, unspecified; F31.9 Bipolar disorder, unspecified; R73.9 Hyperglycemia, unspecified; T38.0X5A Adverse effect of glucocorticoids and synthetic analogues, initial encounter; R45.1 Restlessness and agitation; T42.6X5A Adverse effect of other antiepileptic and sedative-hypnotic drugs, initial encounter; Y92.230 Patient room in hospital as the place of occurrence of the external cause; Z66 Do not resuscitate; Z79.899 Other long term (current) drug therapy
CPT/HCPCS: 36415; 71045; 71275; 74019; 80053; 80164; 81001; 82962; 83036; 83605; 83735; 83880; 84100; 84145; 84484; 85025; 85379; 85610; 85730; 87040; 87086; 87426; 87449; 87633; 92526; 92610; 93005; 94660; 94762; 97110; 97161; 97166; 97530; 97802; 97803; 99251; 99285; J7040; J7050; J7120; Q9967; A4216; G0463; J1940; J7799

== ENCOUNTER 2020-12-12 12:22 | Emergency (ER) | payer MEDICAID, SELFPAY ==
[2020-12-12 12:28] VITALS: BP 121/60; PULSE 80; RESP 16; TEMP 37.2; O2SAT 98; BMI 23.8
--- NOTE | 2020-12-12 12:34 | CM.ED ---
SOCIAL WORK Samara CHING received call from patient' Remnants Cutter through the Board of prior to patient's arrival. Patient with history of Bipolar Disorder. Patient was recently hospitalized due to COVID-19. Provided with psychiatrist contact information Jahaira Aguilera with Psych [phone]. Reviewed case with Dr. Degroot. Call to patient's psychiatrist. Per Dr. Solares, believes patient's behaviors due to medical issue. Patient with increased confusion, issues with walking. Dr. Solares recommending medical work-up and does not believe patient would require inpatient psych. Staff updated. This worker to remain available for needs. Lisa Kay, C2 TACTICAL ANALYSIS TECHNICIAN, DENTAL SCHEDULING COORDINATOR
[2020-12-12 12:43] VITALS: BP 99/48; PULSE 103; RESP 16; O2SAT 97
[2020-12-12] MEDS: hydrOXYzine 50 MG/ML Vial IM (13:01)
[2020-12-12 13:30] LABS: Absolute Lymphocyte Count 1.34 X10^3/uL (0.83-4.51); Absolute Neutrophil Count 3.9 X10^3/uL (2.0-7.7); Basophil# 0.01 X10^3/uL; Basophil% 0.2 % (0-1); Eosinophil# 0.21 X10^3/uL; Eosinophils% 3.4 % (0-5); Hematocrit 30.4 % (40-54); Lymphocyte # 1.34 X10^3/ul (0.83-4.51); Lymphocyte % 21.9 % (19-41); Mean Corp Hgb Conc 32.9 g/dL (32-36); Mean Corpuscular Hgb 29.3 pg (27.0-32.0); Mean Corpuscular Volume 89.1 fL (80-94); Monocyte# 0.65 X10^3/uL; Monocyte% 10.6 % (0-10); NRBC Flagged by Analyzer 0 % (0-5); Neutrophil # 3.88 X10^3/uL (2.7-7.7); Neutrophil % 63.4 % (47-70); Platelet Count 164 K/mm3 (150-450); RBC Distribution Width CV 15.8 % (11.6-14.6); RBC Distribution Width SD 51.6 fl (35.1-43.9); Red Blood Count 3.41 M/mm3 (4.6-6.2); White Blood Count 6.1 K/mm3 (4.4-11.0)
[2020-12-12 13:40] LABS: Bacteria 0 SEEN /hpf (None Seen); Mucous, Urine 0 SEEN /hpf (<or=2+); Red Blood Cells-Urine 0 SEEN /hpf (0-5); White Blood Cells 0 SEEN /hpf (0-5)
[2020-12-12 13:42] LABS: Color, Urine Yellow (Yellow); Glucose, Dipstick Normal (Normal); Ketone-Dipstick Negative (Negative); Leukocyte Esterase-Dipstick Negative /ul (Negative); Nitrite-Dipstick Negative (Negative); Occult Blood-Urine Negative /ul (Negative); Protein-Dipstick Negative (Negative); Urine Bilirubin Dipstick Negative (Negative); Urine Clarity Sl. Cloudy (Clear); Urine Urobilinogen Normal (Normal)
[2020-12-12 13:52] LABS: Amorphous Sediment 1+; Squamous Epithelial Cells - UA 0-5 SEEN /hpf (0-5)
[2020-12-12] MEDS: Haloperidol Lactate 5 MG/ML Vial IM (13:57)
[2020-12-12 14:04] LABS: Valproic Acid (Depakene) Level 90 ug/mL (50-100)
[2020-12-12 14:18] LABS: Anion Gap 7 (5-15); BUN 6 mg/dL (7-18); BUN/Creat Ratio 10.2 RATIO (10-20); Calcium,Total 9.7 mg/dL (8.5-10.1); Chloride 109 mmol/L (98-107); Creatinine, Serum 0.59 mg/dL (0.70-1.30); EST Glomerular Filtration Rate 163 mL/min (>60); Est Glom Filt Rate - Afr Amer 198 mL/min (>60); Glucose 79 mg/dL (74-106); Potassium 4.2 mmol/L (3.5-5.1); Sodium Level 143 mmol/L (136-145)
--- NOTE | 2020-12-12 14:30 | RAD_ITS ---
STUDY: X-RAY CHEST REASON FOR EXAM: Male, 40 years old. Cough TECHNIQUE: Single AP portable view of the chest. COMPARISON: Comparison is made with prior study dated December 01. FINDINGS: The patient is rotated. Minimal increased markings at the left lung base suggestive of left basilar atelectasis although this has improved as compared to prior study. There is no demonstrated pleural abnormality. Normal size heart. Normal mediastinum and maik. Normal visualized pulmonary arteries. Normal visualized aortic arch and descending thoracic aorta. Normal visualized thoracic spine. Normal visualized ribs, clavicles, and shoulders. There is no demonstrated abnormality of the visualized soft tissue structures of the upper abdomen. RAD/Chest 1 View (Portable) IMPRESSION: Mild residual increased linear markings at the left lung base suggestive of atelectasis. Electronically Signed: Karthik Armstrong MD at 14:48 EDT , Service support ,
--- NOTE | 2020-12-12 16:00 | EX.ED.DYSGE1 ---
HPI History of Present Illness Chief Complaint: Mental Health Narrative Narrative: Patient is a 40-year-old male who has MRDD and previous psychiatric issues. He was admitted to the hospital for 17 days secondary to recent Covid and has been out for approximately 7 days. Family states he seems to be more agitated and they are wondering if he needs a change in his medication. The psychiatrist has concern that there could be an infectious process causing his symptoms and therefore had family bring him back in for evaluation. The patient cannot offer any further history based on his MRDD status [facility] Medical History Bipolar 1 disorder Mental disability Home Medications benztropine 1 mg PO BID 04/18/18 [History Last Taken 11/18/20] buspirone 15 mg PO TID 04/18/18 [History Last Taken 11/18/20] clozapine 50 mg PO DAILY 04/18/18 [History Last Taken 11/18/20] clozapine 100 mg PO QHS 04/18/18 [History Last Taken 11/17/20] divalproex 500 mg PO TID 04/18/18 [History Last Taken 11/18/20] divalproex 250 mg PO BREAKFAST 07/17/18 [History Last Taken 11/18/20] clonazepam 1 mg PO BID 30 Days #60 tab 12/05/20 [Rx Last Taken Unknown] diaper,brief,adult,disposable [Briefs] #10 ea 12/05/20 [Rx Last Taken Unknown] sennosides-docusate sodium [Stool Softener-Stimulant Laxat] 1 tab PO BID #0 tab 12/05/20 [Rx Last Taken Unknown] Allergy/AdvReac Type Severity Reaction Status Date / Time No Known Allergies Allergy Verified 12/12/20 12:35 Social History (Updated 11/18/20 @ 19:[address] Luz Maria Auguste MD) household members: family Smoking Status: Never smoker alcohol intake: never ROS ROS ED Review of Systems ROS Unobtainable: due to mental condition EXAM Physical Exam Const Vital Signs: 12/12/20 12:28 12/12/20 12:43 Temperature 98.9 F Temperature Source Oral Pulse Rate 80 103 H Respiratory Rate 16 16 Blood Pressure 121/60 H 99/48 L Blood Pressure Mean 80 65 Pulse Ox 98 97 Oxygen Delivery Method Room Air Room Air Positive well nourished, well developed and unkempt General Appearance ED: unkempt and well developed HEENT Reports normocephalic and dry mucous membranes normocephalic Mouth ED: Yes dry mucous membranes Mouth: dry mucous membranes Eyes PERRL and EOMs intact bilaterally Neck full ROM and No nuchal rigidity Neck Narrative: No meningeal signs Chest Wall palpation of chest normal Resp normal respiratory effort, normal air movement, no retractions, no use of accessory muscles and clear to auscultation bilaterally Cardio regular rate and regular rhythm GI normal to inspection, nondistended, normoactive bowel sounds, soft to palpation, non-tender, non-distended and no masses Extremity normal to inspection, full ROM and normal capillary refill Neuro CN's II-XII intact bilaterally and moves all extremities Neuro Narrative: Patient is awake and at his baseline mental status with no focal neurologic deficit Psych Psych Narrative: Patient has psychomotor agitation Appearance: unkempt Skin no rashes or lesions noted Skin Narrative: No overlying secondary changes to suggest infection MDM MDM MDM Narrative Medical decision making narrative: Patient presented to the ER afebrile. His physical exam did not display any obvious sign of infection but as he has MRDD and cannot tell us if there is symptoms for this a basic work-up was obtained. His white count is normal his H&H is stable at his baseline he has no signs of acute kidney injury and urine reveals no obvious infection. Chest x-ray also reveals no obvious infection at this time and is valproic acid level is within normal range. Therefore at this time I do not feel there is need for further work-up and there is no obvious infectious process causing his change and therefore safe for discharge Lab Data Attestation: I reviewed the patient's lab results. Labs: Laboratory Results - last 24 hr 12/12/20 12/12/20 12/12/20 12:55 13:20 13:20 WBC 6.1 RBC 3.41 L Hgb 10.0 L Hct 30.4 L MCV 89.1 MCH 29.3 MCHC 32.9 RDW Std Deviation 51.6 H RDW Coeff of Adrian 15.8 H Plt Count 164 MPV 9.0 Immature Gran % (Auto) 0.500 Neut % (Auto) 63.4 Lymph % (Auto) 21.9 [place] % (Auto) 10.6 H Eos % (Auto) 3.4 Baso % (Auto) 0.2 Absolute Neuts (auto) 3.9 Absolute Lymphs (auto) 1.34 Nucleated RBC % 0 Sodium 143 Potassium 4.2 Chloride 109 H Carbon Dioxide 27.0 Anion Gap 7 BUN 6 L Creatinine 0.59 L Estim Creat Clear Calc 184.50 Est GFR (MDRD) Af Amer 198 Est GFR (MDRD) Non-Af 163 BUN/Creatinine Ratio 10.2 Glucose 79 Calcium 9.7 Urine Color Urine Clarity Urine pH Ur Specific [place] Urine Protein Urine Glucose (UA) Urine Ketones Urine Occult Blood Urine Nitrite Urine Bilirubin Urine Urobilinogen Ur Leukocyte Esterase Urine RBC Urine WBC Ur Squamous Epith Cells Amorphous Sediment Urine Bacteria Urine Mucus Valproic Acid 90 12/12/20 13:30 WBC RBC Hgb Hct MCV MCH MCHC RDW Std Deviation RDW Coeff of Adrian Plt Count MPV Immature Gran % (Auto) Neut % (Auto) Lymph % (Auto) [place] % (Auto) Eos % (Auto) Baso % (Auto) Absolute Neuts (auto) Absolute Lymphs (auto) Nucleated RBC % Sodium Potassium Chloride Carbon Dioxide Anion Gap BUN Creatinine Estim Creat Clear Calc Est GFR (MDRD) Af Amer Est GFR (MDRD) Non-Af BUN/Creatinine Ratio Glucose Calcium Urine Color Yellow Urine Clarity Sl. Cloudy Urine pH 8.0 Ur Specific [place] 1.010 Urine Protein Negative Urine Glucose (UA) Normal Urine Ketones Negative Urine Occult Blood Negative Urine Nitrite Negative Urine Bilirubin Negative Urine Urobilinogen Normal Ur Leukocyte Esterase Negative Urine RBC 0 SEEN Urine WBC 0 SEEN Ur Squamous Epith Cells 0-5 SEEN Amorphous Sediment 1+ Urine Bacteria 0 SEEN Urine Mucus 0 SEEN Valproic Acid Radiography Diagnostic Testing: Clinical Impression(s) from Imaging Studies Chest X-Ray 12/12/20 14:30 IMPRESSION: Mild residual increased linear markings at the left lung base suggestive of atelectasis. Electronically Signed: Karthik Armstrong MD at 14:48 EDT , Service support , Discharge Plan Triage Chief Complaint: Mental Health ED Provider: Harvinder Degroot Dx/Rx/DC Orders Clinical Impression: Mental disability, Mood disorder Instructions: Understanding Mood Disorders Prescriptions: No Action clozapine 100 MG tablet 100 mg PO QHS RF: 0 divalproex 500 MG tablet,delayed release (DR/EC) 500 mg PO TID RF: 0 benztropine 1 MG tablet 1 mg PO BID RF: 0 buspirone 15 MG tablet 15 mg PO TID RF: 0 clozapine 50 MG tablet 50 mg PO DAILY RF: 0 divalproex 250 MG tablet 250 mg PO BREAKFAST RF: 0 sennosides-docusate sodium [Stool Softener-Stimulant Laxat] 8.6-50 mg Tablet 1 tab PO BID Qty: 0 RF: 0 clonazepam 1 mg Tablet 1 mg PO BID 30 Days Qty: 60 RF: 0 (DME) Briefs Misc See Rx Instructions .ROUTE .MEDSUPPLY Qty: 10 RF: 12 Primary Care Provider: Carlo Wellington Referrals: Carlo Wellington DO [Primary Care Provider] - Disposition Disposition: Home, Self Care
--- NOTE | 2020-12-12 16:19 | CM.ED ---
SOCIAL WORK Patient is medically cleared. Call to patient's SSA, Shantell wAan to update. Release of information signed by family and clinical information faxed to Shantell per request. Lisa Kay, [employer]ER[employer] ADVISER, HAND QUILTER
[2020-12-12 16:26] VITALS: BP 110/71; PULSE 91; RESP 16; O2SAT 97
--- NOTE | 2020-12-12 16:40 | EKG12_ITS ---
Test Reason : Blood Pressure : / mmHG Vent. Rate : 098 BPM Atrial Rate : 098 BPM P-R Int : 136 ms QRS Dur : 104 ms QT Int : 356 ms P-R-T Axes : 072 061 065 degrees QTc Int : 454 ms Normal sinus rhythm Normal ECG Confirmed by EDUARD MORALES, DC ([id number]), editor sound PA MARTINEZ ([id number]) on 12/14/2020 9:24:41 AM Referred By: Confirmed By:DC CHAPA MD
[2020-12-12] MEDS: Divalproex (ER) 500 MG Tablet PO (17:20)
== END 2020-12-12 17:38 | disposition home or self-care (01) ==
PROVIDERS: Emergency Provider Emergency Medicine; PCP Family Medicine
DX: F31.9 Bipolar disorder, unspecified (principal); F79 Unspecified intellectual disabilities; Z79.899 Other long term (current) drug therapy; Z86.16 Personal history of COVID-19
CPT/HCPCS: 71045; 80048; 80164; 81001; 85025; 93005; 96372; 99285

== ENCOUNTER → 2020-12-29 | Outpatient (CLI) | payer MEDICAID, SELFPAY ==
[2020-12-29 09:37] LABS: Absolute Lymphocyte Count 1.45 X10^3/uL (0.83-4.51); Absolute Neutrophil Count 4.3 X10^3/uL (2.0-7.7); Basophil# 0.02 X10^3/uL; Basophil% 0.3 % (0-1); Eosinophil# 0.11 X10^3/uL; Eosinophils% 1.7 % (0-5); Hematocrit 34.9 % (40-54); Hemoglobin 11.2 g/dL (13.0-16.5); Lymphocyte # 1.45 X10^3/ul (0.83-4.51); Lymphocyte % 21.8 % (19-41); Mean Corp Hgb Conc 32.1 g/dL (32-36); Mean Corpuscular Hgb 29.9 pg (27.0-32.0); Mean Corpuscular Volume 93.1 fL (80-94); Mean Platelet Vol. 10.2 fl (6.2-12.0); Monocyte# 0.78 X10^3/uL; Monocyte% 11.7 % (0-10); NRBC Flagged by Analyzer 0 % (0-5); Neutrophil # 4.25 X10^3/uL (2.7-7.7); Neutrophil % 63.9 % (47-70); Platelet Count 182 K/mm3 (150-450); RBC Distribution Width CV 15.6 % (11.6-14.6); RBC Distribution Width SD 53.3 fl (35.1-43.9); Red Blood Count 3.75 M/mm3 (4.6-6.2); White Blood Count 6.7 K/mm3 (4.4-11.0)
[2020-12-29 09:52] LABS: Valproic Acid (Depakene) Level 100 ug/mL (50-100)
[2020-12-29 09:53] LABS: ALB/GLOB Ratio 0.6 RATIO (0.9-2.4); AST(SGOT) 15 U/L (15-37); Alanine Aminotransfer ALT/SGPT 11 U/L (16-61); Albumin, Serum 2.4 g/dL (3.2-5.0); Alkaline Phosphatase 47 U/L (45-117); Anion Gap 7 (5-15); BUN 8 mg/dL (7-18); BUN/Creat Ratio 7.9 RATIO (10-20); Calcium,Total 10.8 mg/dL (8.5-10.1); Chloride 106 mmol/L (98-107); Creatinine, Serum 1.01 mg/dL (0.70-1.30); EST Glomerular Filtration Rate 87 mL/min (>60); Est Glom Filt Rate - Afr Amer 106 mL/min (>60); Globulin 3.8 g/dL (2.2-4.2); Glucose 80 mg/dL (74-106); Potassium 4.1 mmol/L (3.5-5.1); Protein, Total 6.2 g/dL (6.4-8.2); Sodium Level 143 mmol/L (136-145)
== END | disposition home or self-care (01) ==
LOC: LABSPEC 09:24
PROVIDERS: PCP Family Medicine; Referring Provider Psychiatry & Neurology Child & Adolescent Psychiatry; Visit Provider Psychiatry & Neurology Child & Adolescent Psychiatry
DX: Z79.899 Other long term (current) drug therapy (principal)
CPT/HCPCS: 80053; 80164; 85025

== ENCOUNTER 2021-01-13 11:28 | Outpatient (RCR) | payer MEDICAID, SELFPAY ==
[2020-11-17 21:48] VITALS: BMI 27.1
[2021-01-05 14:13] LABS: Absolute Lymphocyte Count 1.27 X10^3/uL (0.83-4.51); Absolute Neutrophil Count 2.5 X10^3/uL (2.0-7.7); Basophil# 0.02 X10^3/uL; Basophil% 0.4 % (0-1); Eosinophil# 0.07 X10^3/uL; Eosinophils% 1.6 % (0-5); Hemoglobin 11.1 g/dL (13.0-16.5); Lymphocyte # 1.27 X10^3/ul (0.83-4.51); Lymphocyte % 28.4 % (19-41); Mean Corp Hgb Conc 31.7 g/dL (32-36); Mean Corpuscular Hgb 29.4 pg (27.0-32.0); Mean Corpuscular Volume 92.6 fL (80-94); Mean Platelet Vol. 10.4 fl (6.2-12.0); Monocyte# 0.63 X10^3/uL; Monocyte% 14.1 % (0-10); NRBC Flagged by Analyzer 0 % (0-5); Neutrophil # 2.45 X10^3/uL (2.7-7.7); Neutrophil % 54.8 % (47-70); Platelet Count 150 K/mm3 (150-450); RBC Distribution Width CV 15.4 % (11.6-14.6); RBC Distribution Width SD 52.7 fl (35.1-43.9); Red Blood Count 3.78 M/mm3 (4.6-6.2); White Blood Count 4.5 K/mm3 (4.4-11.0)
[2021-01-05 14:32] LABS: Valproic Acid (Depakene) Level 95 ug/mL (50-100)
[2021-01-05 14:34] LABS: ALB/GLOB Ratio 0.6 RATIO (0.9-2.4); AST(SGOT) 8 U/L (15-37); Alanine Aminotransfer ALT/SGPT 10 U/L (16-61); Albumin, Serum 2.6 g/dL (3.2-5.0); Alkaline Phosphatase 41 U/L (45-117); Anion Gap 5 (5-15); BUN 11 mg/dL (7-18); BUN/Creat Ratio 12.5 RATIO (10-20); Calcium,Total 9.9 mg/dL (8.5-10.1); Chloride 107 mmol/L (98-107); Creatinine, Serum 0.88 mg/dL (0.70-1.30); EST Glomerular Filtration Rate 102 mL/min (>60); Est Glom Filt Rate - Afr Amer 124 mL/min (>60); Globulin 4.3 g/dL (2.2-4.2); Glucose 153 mg/dL (74-106); Potassium 3.6 mmol/L (3.5-5.1); Protein, Total 6.9 g/dL (6.4-8.2); Sodium Level 142 mmol/L (136-145)
[2021-01-13 13:38] LABS: Absolute Neutrophil Count 2.5 X10^3/uL (2.0-7.7); Basophil# 0.04 X10^3/uL; Basophil% 0.8 % (0-1); Eosinophil# 0.24 X10^3/uL; Hematocrit 36.6 % (40-54); Hemoglobin 11.5 g/dL (13.0-16.5); Mean Corp Hgb Conc 31.4 g/dL (32-36); Mean Corpuscular Hgb 29.1 pg (27.0-32.0); Mean Corpuscular Volume 92.7 fL (80-94); Mean Platelet Vol. 10.4 fl (6.2-12.0); Monocyte# 0.65 X10^3/uL; Monocyte% 13.5 % (0-10); NRBC Flagged by Analyzer 0 % (0-5); Neutrophil # 2.53 X10^3/uL (2.7-7.7); Neutrophil % 52.7 % (47-70); Platelet Count 128 K/mm3 (150-450); RBC Distribution Width CV 15.2 % (11.6-14.6); RBC Distribution Width SD 52.6 fl (35.1-43.9); Red Blood Count 3.95 M/mm3 (4.6-6.2); White Blood Count 4.8 K/mm3 (4.4-11.0)
== END 2021-01-17 18:00 | disposition home or self-care (01) ==
LOC: LAB 11:28
PROVIDERS: Family Provider Family Medicine; PCP Family Medicine; Referring Provider Psychiatry & Neurology Child & Adolescent Psychiatry; Visit Provider Psychiatry & Neurology Child & Adolescent Psychiatry
DX: F31.81 Bipolar II disorder (principal); Z79.899 Other long term (current) drug therapy
CPT/HCPCS: 36415; 80053; 80164; 85025

== ENCOUNTER 2021-02-13 10:08 | Outpatient (RCR) | payer MEDICAID, SELFPAY ==
[2021-01-18 03:31] VITALS: BMI 27.1
[2021-01-23 10:43] LABS: Absolute Lymphocyte Count 1.62 X10^3/uL (0.83-4.51); Absolute Neutrophil Count 3.1 X10^3/uL (2.0-7.7); Basophil# 0.03 X10^3/uL; Basophil% 0.5 % (0-1); Eosinophils% 5.2 % (0-5); Hematocrit 37.4 % (40-54); Hemoglobin 11.7 g/dL (13.0-16.5); Lymphocyte # 1.62 X10^3/ul (0.83-4.51); Lymphocyte % 28.1 % (19-41); Mean Corp Hgb Conc 31.3 g/dL (32-36); Mean Corpuscular Hgb 28.6 pg (27.0-32.0); Mean Corpuscular Volume 91.4 fL (80-94); Mean Platelet Vol. 9.9 fl (6.2-12.0); Monocyte# 0.68 X10^3/uL; Monocyte% 11.8 % (0-10); NRBC Flagged by Analyzer 0 % (0-5); Neutrophil # 3.11 X10^3/uL (2.7-7.7); Neutrophil % 53.9 % (47-70); Platelet Count 135 K/mm3 (150-450); RBC Distribution Width CV 14.7 % (11.6-14.6); RBC Distribution Width SD 49.5 fl (35.1-43.9); Red Blood Count 4.09 M/mm3 (4.6-6.2); White Blood Count 5.8 K/mm3 (4.4-11.0)
[2021-01-30 10:56] LABS: Absolute Lymphocyte Count 1.56 X10^3/uL (0.83-4.51); Absolute Neutrophil Count 2.3 X10^3/uL (2.0-7.7); Basophil# 0.03 X10^3/uL; Basophil% 0.6 % (0-1); Eosinophil# 0.14 X10^3/uL; Hematocrit 40.2 % (40-54); Hemoglobin 12.5 g/dL (13.0-16.5); Lymphocyte # 1.56 X10^3/ul (0.83-4.51); Lymphocyte % 33.5 % (19-41); Mean Corp Hgb Conc 31.1 g/dL (32-36); Mean Corpuscular Hgb 29.3 pg (27.0-32.0); Mean Corpuscular Volume 94.1 fL (80-94); Mean Platelet Vol. 12.1 fl (6.2-12.0); Monocyte# 0.58 X10^3/uL; Monocyte% 12.4 % (0-10); NRBC Flagged by Analyzer 0 % (0-5); Neutrophil # 2.33 X10^3/uL (2.7-7.7); Neutrophil % 50.1 % (47-70); POSITIVE COUNT YES; RBC Distribution Width CV 14.6 % (11.6-14.6); RBC Distribution Width SD 50.4 fl (35.1-43.9); Red Blood Count 4.27 M/mm3 (4.6-6.2); White Blood Count 4.7 K/mm3 (4.4-11.0)
[2021-01-30 11:13] LABS: Differential Indicated SCAN CRITERIA MET
[2021-01-30 11:14] LABS: Platelet Estimate MKD DEC (ADEQ)
[2021-02-06 12:22] LABS: Absolute Lymphocyte Count 1.41 X10^3/uL (0.83-4.51); Absolute Neutrophil Count 1.9 X10^3/uL (2.0-7.7); Basophil# 0.01 X10^3/uL; Basophil% 0.2 % (0-1); Eosinophil# 0.17 X10^3/uL; Eosinophils% 4.1 % (0-5); Hemoglobin 11.7 g/dL (13.0-16.5); Lymphocyte # 1.41 X10^3/ul (0.83-4.51); Lymphocyte % 33.7 % (19-41); Mean Corp Hgb Conc 31.6 g/dL (32-36); Mean Corpuscular Hgb 29.2 pg (27.0-32.0); Mean Corpuscular Volume 92.3 fL (80-94); Mean Platelet Vol. 10.6 fl (6.2-12.0); Monocyte% 16.7 % (0-10); NRBC Flagged by Analyzer 0 % (0-5); Neutrophil # 1.87 X10^3/uL (2.7-7.7); Neutrophil % 44.8 % (47-70); Platelet Count 104 K/mm3 (150-450); RBC Distribution Width CV 14.6 % (11.6-14.6); RBC Distribution Width SD 49.4 fl (35.1-43.9); Red Blood Count 4.01 M/mm3 (4.6-6.2); White Blood Count 4.2 K/mm3 (4.4-11.0)
[2021-02-13 11:29] LABS: Absolute Neutrophil Count 1.7 X10^3/uL (2.0-7.7); Basophil# 0.02 X10^3/uL; Basophil% 0.5 % (0-1); Eosinophil# 0.12 X10^3/uL; Eosinophils% 3.2 % (0-5); Hematocrit 36.5 % (40-54); Hemoglobin 11.5 g/dL (13.0-16.5); Lymphocyte % 40.4 % (19-41); Mean Corp Hgb Conc 31.5 g/dL (32-36); Mean Corpuscular Volume 91.9 fL (80-94); Monocyte# 0.34 X10^3/uL; Monocyte% 9.2 % (0-10); NRBC Flagged by Analyzer 0 % (0-5); Neutrophil # 1.72 X10^3/uL (2.7-7.7); Neutrophil % 46.4 % (47-70); Platelet Count 105 K/mm3 (150-450); RBC Distribution Width CV 14.6 % (11.6-14.6); RBC Distribution Width SD 49.7 fl (35.1-43.9); Red Blood Count 3.97 M/mm3 (4.6-6.2); White Blood Count 3.7 K/mm3 (4.4-11.0)
[2021-02-13 11:48] LABS: Valproic Acid (Depakene) Level 101 ug/mL (50-100)
[2021-02-13 11:50] LABS: ALB/GLOB Ratio 0.6 RATIO (0.9-2.4); AST(SGOT) 19 U/L (15-37); Alanine Aminotransfer ALT/SGPT 13 U/L (16-61); Alkaline Phosphatase 43 U/L (45-117); Anion Gap 5 (5-15); BUN 11 mg/dL (7-18); BUN/Creat Ratio 10.5 RATIO (10-20); Calcium,Total 10.6 mg/dL (8.5-10.1); Chloride 106 mmol/L (98-107); Creatinine, Serum 1.05 mg/dL (0.70-1.30); EST Glomerular Filtration Rate 83 mL/min (>60); Est Glom Filt Rate - Afr Amer 101 mL/min (>60); Globulin 4.8 g/dL (2.2-4.2); Glucose 75 mg/dL (74-106); Potassium 3.5 mmol/L (3.5-5.1); Protein, Total 7.8 g/dL (6.4-8.2); Sodium Level 142 mmol/L (136-145)
== END 2021-02-18 18:00 | disposition home or self-care (01) ==
LOC: LAB 10:08
PROVIDERS: Family Provider Family Medicine; PCP Family Medicine; Referring Provider Psychiatry & Neurology Child & Adolescent Psychiatry; Visit Provider Psychiatry & Neurology Child & Adolescent Psychiatry
DX: F31.81 Bipolar II disorder (principal); Z79.899 Other long term (current) drug therapy
CPT/HCPCS: 36415; 80053; 80164; 85025

== ENCOUNTER 2021-03-15 10:19 | Outpatient (RCR) | payer MEDICAID, SELFPAY ==
[2021-02-19 04:34] VITALS: BMI 27.1
[2021-02-21 14:26] LABS: Absolute Lymphocyte Count 1.56 X10^3/uL (0.83-4.51); Absolute Neutrophil Count 2.8 X10^3/uL (2.0-7.7); Basophil# 0.02 X10^3/uL; Basophil% 0.4 % (0-1); Eosinophil# 0.07 X10^3/uL; Eosinophils% 1.4 % (0-5); Hematocrit 38.5 % (40-54); Hemoglobin 11.8 g/dL (13.0-16.5); Lymphocyte # 1.56 X10^3/ul (0.83-4.51); Mean Corp Hgb Conc 30.6 g/dL (32-36); Mean Corpuscular Hgb 28.6 pg (27.0-32.0); Mean Corpuscular Volume 93.2 fL (80-94); Monocyte# 0.57 X10^3/uL; Monocyte% 11.3 % (0-10); NRBC Flagged by Analyzer 0 % (0-5); Neutrophil % 55.5 % (47-70); POSITIVE COUNT YES; Platelet Count 94 K/mm3 (150-450); RBC Distribution Width CV 14.9 % (11.6-14.6); RBC Distribution Width SD 51.3 fl (35.1-43.9); Red Blood Count 4.13 M/mm3 (4.6-6.2)
[2021-02-27 10:41] LABS: Absolute Lymphocyte Count 1.38 X10^3/uL (0.83-4.51); Absolute Neutrophil Count 2.5 X10^3/uL (2.0-7.7); Basophil# 0.02 X10^3/uL; Basophil% 0.4 % (0-1); Eosinophil# 0.05 X10^3/uL; Eosinophils% 1.1 % (0-5); Hematocrit 39.9 % (40-54); Hemoglobin 12.4 g/dL (13.0-16.5); Lymphocyte # 1.38 X10^3/ul (0.83-4.51); Lymphocyte % 30.3 % (19-41); Mean Corp Hgb Conc 31.1 g/dL (32-36); Mean Corpuscular Hgb 28.8 pg (27.0-32.0); Mean Corpuscular Volume 92.8 fL (80-94); Mean Platelet Vol. 10.2 fl (6.2-12.0); Monocyte% 13.2 % (0-10); NRBC Flagged by Analyzer 0 % (0-5); Neutrophil % 54.8 % (47-70); Platelet Count 102 K/mm3 (150-450); RBC Distribution Width CV 15.2 % (11.6-14.6); White Blood Count 4.6 K/mm3 (4.4-11.0)
[2021-03-10 10:58] LABS: Color, Urine Yellow (Yellow); Glucose, Dipstick Normal (Normal); Leukocyte Esterase-Dipstick 25 /ul (Negative); Nitrite-Dipstick Negative (Negative); Occult Blood-Urine 10 /ul (Negative); Specific Gravity, Urine 1.015 (1.002-1.030); Urine Bilirubin Dipstick Negative (Negative); Urine Urobilinogen Normal (Normal)
[2021-03-10 10:59] LABS: Absolute Lymphocyte Count 1.15 X10^3/uL (0.83-4.51); Basophil# 0.02 X10^3/uL; Basophil% 0.3 % (0-1); Eosinophil# 0.08 X10^3/uL; Eosinophils% 1.3 % (0-5); Hematocrit 40.7 % (40-54); Hemoglobin 12.5 g/dL (13.0-16.5); Lymphocyte # 1.15 X10^3/ul (0.83-4.51); Lymphocyte % 18.8 % (19-41); Mean Corp Hgb Conc 30.7 g/dL (32-36); Mean Corpuscular Hgb 28.5 pg (27.0-32.0); Mean Corpuscular Volume 92.9 fL (80-94); Monocyte# 0.81 X10^3/uL; Monocyte% 13.2 % (0-10); NRBC Flagged by Analyzer 0 % (0-5); Neutrophil # 4.04 X10^3/uL (2.7-7.7); Neutrophil % 66.1 % (47-70); POSITIVE COUNT YES; Platelet Count 76 K/mm3 (150-450); RBC Distribution Width CV 14.8 % (11.6-14.6); RBC Distribution Width SD 50.5 fl (35.1-43.9); Red Blood Count 4.38 M/mm3 (4.6-6.2); White Blood Count 6.1 K/mm3 (4.4-11.0)
[2021-03-10 11:01] LABS: Differential Indicated SCAN CRITERIA MET
[2021-03-10 11:25] LABS: Ketone-Dipstick 5 mg/dl (Negative); Protein-Dipstick Negative (Negative); Urine Clarity Sl. Cloudy (Clear)
[2021-03-10 11:26] LABS: Platelet Estimate MOD DEC (ADEQ)
[2021-03-15 10:56] LABS: Absolute Lymphocyte Count 1.55 X10^3/uL (0.83-4.51); Absolute Neutrophil Count 3.3 X10^3/uL (2.0-7.7); Basophil# 0.01 X10^3/uL; Basophil% 0.2 % (0-1); Eosinophil# 0.11 X10^3/uL; Hematocrit 38.3 % (40-54); Hemoglobin 12.4 g/dL (13.0-16.5); Lymphocyte # 1.55 X10^3/ul (0.83-4.51); Lymphocyte % 28.1 % (19-41); Mean Corp Hgb Conc 32.4 g/dL (32-36); Mean Corpuscular Volume 89.7 fL (80-94); Mean Platelet Vol. 10.6 fl (6.2-12.0); Monocyte% 9.1 % (0-10); NRBC Flagged by Analyzer 0 % (0-5); Neutrophil # 3.31 X10^3/uL (2.7-7.7); Neutrophil % 60.1 % (47-70); Platelet Count 101 K/mm3 (150-450); RBC Distribution Width CV 14.6 % (11.6-14.6); RBC Distribution Width SD 47.4 fl (35.1-43.9); Red Blood Count 4.27 M/mm3 (4.6-6.2); White Blood Count 5.5 K/mm3 (4.4-11.0)
[2021-03-15 11:19] LABS: ALB/GLOB Ratio 0.7 RATIO (0.9-2.4); AST(SGOT) 12 U/L (15-37); Alanine Aminotransfer ALT/SGPT 13 U/L (16-61); Albumin, Serum 3.3 g/dL (3.2-5.0); Alkaline Phosphatase 60 U/L (45-117); Anion Gap 3 (5-15); BUN 17 mg/dL (7-18); BUN/Creat Ratio 10.6 RATIO (10-20); Calcium,Total 12.2 mg/dL (8.5-10.1); Chloride 101 mmol/L (98-107); EST Glomerular Filtration Rate 51 mL/min (>60); Est Glom Filt Rate - Afr Amer 62 mL/min (>60); Glucose 80 mg/dL (74-106); Protein, Total 8.3 g/dL (6.4-8.2); Sodium Level 139 mmol/L (136-145)
[2021-03-15 11:25] LABS: Valproic Acid (Depakene) Level 108 ug/mL (50-100)
== END 2021-03-20 18:00 | disposition home or self-care (01) ==
LOC: LAB 10:19
PROVIDERS: Family Provider Family Medicine; Referring Provider Psychiatry & Neurology Child & Adolescent Psychiatry; Visit Provider Psychiatry & Neurology Child & Adolescent Psychiatry
DX: Z79.899 Other long term (current) drug therapy (principal)
CPT/HCPCS: 36415; 80053; 80164; 81002; 85025

== ENCOUNTER 2021-04-05 10:03 | Outpatient (RCR) | payer MEDICAID, SELFPAY ==
[2021-03-21 01:24] VITALS: BMI 27.1
[2021-03-29 11:34] LABS: Absolute Lymphocyte Count 1.74 X10^3/uL (0.83-4.51); Absolute Neutrophil Count 2.6 X10^3/uL (2.0-7.7); Basophil# 0.01 X10^3/uL; Basophil% 0.2 % (0-1); Eosinophil# 0.06 X10^3/uL; Eosinophils% 1.2 % (0-5); Hematocrit 37.6 % (40-54); Lymphocyte # 1.74 X10^3/ul (0.83-4.51); Lymphocyte % 34.9 % (19-41); Mean Corp Hgb Conc 31.9 g/dL (32-36); Mean Corpuscular Hgb 28.8 pg (27.0-32.0); Mean Corpuscular Volume 90.4 fL (80-94); Monocyte# 0.52 X10^3/uL; Monocyte% 10.4 % (0-10); NRBC Flagged by Analyzer 0 % (0-5); Neutrophil # 2.64 X10^3/uL (2.7-7.7); Neutrophil % 53.1 % (47-70); POSITIVE COUNT YES; Platelet Count 72 K/mm3 (150-450); RBC Distribution Width CV 15.6 % (11.6-14.6); RBC Distribution Width SD 51.1 fl (35.1-43.9); Red Blood Count 4.16 M/mm3 (4.6-6.2)
[2021-03-29 11:35] LABS: Differential Indicated SCAN CRITERIA MET
[2021-03-29 12:02] LABS: Platelet Estimate MOD DEC (ADEQ)
[2021-04-05 13:17] LABS: T4 Free Direct 0.74 ng/dL (0.76-1.46); Thyroid Stim Hormone (TSH) 0.79 uIU/mL (0.358-3.74)
== END 2021-04-05 23:59 | disposition home or self-care (01) ==
LOC: LAB 10:03
PROVIDERS: Family Provider Family Medicine; Referring Provider Psychiatry & Neurology Child & Adolescent Psychiatry; Visit Provider Psychiatry & Neurology Child & Adolescent Psychiatry
DX: Z79.899 Other long term (current) drug therapy (principal)
CPT/HCPCS: 84443; 36415; 86140; 84439; 85025; 80048

== ENCOUNTER 2021-04-06 10:56 | Inpatient (IN) | payer MEDICAID, SELFPAY ==
[2021-04-06] VITALS (7 sets, daily range): BP systolic 115–143; BP diastolic 80–109; PULSE 67–83; RESP 14–18; TEMP 36.2–36.9; O2SAT 94–96; BMI 23.1; BMI 23.3
--- NOTE | 2021-04-06 10:59 | CM.ED ---
HUMZA Note HUMZA received voice mail from Shantell Awan at [facility] [employer] and requested call back. HUMZA called Shantell Awan ([phone]) . Shantell said that she had spoken to ED Rn. Shantell said that patient's mother a couple of years ago related to complications from Crohn's disease. Shantell said that the big issue is patient not eating, not drinking and when he does eat or drink he throws up. Patient goes without having a bowel movement for 4 days with miralax and when he has a bowel movement it's pasty and diarrhea. Patient has been drinking ensure. Patient also has been moaning. Shantell reports patient lost 25-30 lbs of weight in the last couple of months. This morning patient's brother called and said that patient drank a little bit and then threw it up. Shantell reports that patient is ambulatory but is weak and been shuffling. When patient has bouts with constipation he is nervous and has some paranoia. However, Shantell said that patient is psychiatrically stable at this time. Patient has a psychiatrist, Dr. Meet Solares from [facility] who was 'concerned about patient kreation level. She felt that patient needed to be referred to urologist and GI MD. Patient receives services through [employer] as he is moderate severe mentally disabled and thus a poor historian. Patient does get routine lab work related to his Clozaril levels. Shantell had updated patient's MD, Dr. Wellington. Siobhan FIORE
--- NOTE | 2021-04-06 11:08 | EDS_ITS ---
HPI History of Present Illness Chief Complaint: Weakness Informant: family Onset/Context/Timing Onset: Month(s) (2) Context: Gradual Onset Timing: Continuous Quality: Weakness Location: Generalized Worsened by: Nothing Relieved by: Nothing Narrative Narrative: Patient presents with generalized weakness that has been getting worse over the past month and 1/2 to 2 months. Family states the patient is not eating or drinking much recently. Family states patient has had been having some nausea, vomiting, and diarrhea. Family denies any hematemesis or coffee- ground emesis. Family denies any melena or hematochezia. Family states patient has had a 25 to 30 pound weight loss over the past 2 months. Family states patient has had lab work drawn as an outpatient which is all been normal. Family [facility] patient was hospitalized for COVID approximately 4 months ago. [facility] patient recovered after this. [facility] Medical History Bipolar 1 disorder Mental disability Home Medications benztropine 1 mg PO BID 04/18/18 [History Last Taken 11/18/20] buspirone 15 mg PO TID 04/18/18 [History Last Taken 11/18/20] clozapine 50 mg PO DAILY 04/18/18 [History Last Taken 11/18/20] clozapine 100 mg PO QHS 04/18/18 [History Last Taken 11/17/20] divalproex 500 mg PO TID 04/18/18 [History Last Taken 11/18/20] divalproex 250 mg PO BREAKFAST 07/17/18 [History Last Taken 11/18/20] clonazepam 1 mg PO BID 30 Days #60 tab 12/05/20 [Rx Last Taken Unknown] diaper,brief,adult,disposable [Briefs] #10 ea 12/05/20 [Rx Last Taken Unknown] sennosides-docusate sodium [Stool Softener-Stimulant Laxat] 1 tab PO BID #0 tab 12/05/20 [Rx Last Taken Unknown] quetiapine [Seroquel] 25 mg PO BID #60 tab 12/12/20 [Rx Last Taken Unknown] ondansetron 4 mg PO Q8H PRN PRN #10 tab 04/06/21 [Rx Last Taken Unknown] Allergy/AdvReac Type Severity Reaction Status Date / Time No Known Allergies Allergy Verified 12/12/20 12:35 Social History household members: family Smoking Status: Never smoker alcohol intake: never ROS ROS ED Review of Systems ROS Unobtainable: due to mental condition Constitutional Constitutional ED: Denies chills or fever(s) Respiratory/Chest Respiratory/Chest: Denies cough or dyspnea Gastrointestinal Gastrointestinal: Reports diarrhea, nausea and vomiting EXAM Physical Exam Const Vital Signs: 04/06/21 10:57 04/06/21 13:00 04/06/21 15:00 Temperature 97.1 F L Temperature Source Axillary Pulse Rate 82 74 68 Respiratory Rate 18 14 18 Blood Pressure 138/101 H 138/101 H 138/92 H Blood Pressure Mean 113 113 107 Pulse Ox 96 96 94 Oxygen Delivery Method Room Air Room Air Room Air Positive well nourished and well developed General Appearance ED: well developed HEENT Reports moist mucous membranes Neck supple and no JVD Resp normal respiratory effort and clear to auscultation bilaterally Cardio regular rate and regular rhythm GI normal to inspection, nondistended, normoactive bowel sounds Palpation: soft Neuro CN's II-XII intact bilaterally and no sensory deficits noted Sensorium / Orientation: alert MDM MDM MDM Narrative Medical decision making narrative: Patient was given IV fluids and Zofran here. CBC showed platelet count of 77. This is consistent with prior results. Comprehensive metabolic profile was obtained. Creatinine is slightly increased from previous result. It is 2.04 today it was 1.60 3 weeks ago. However, 2 months ago they were normal. BUN was 24. Calcium was elevated at 13.0. Liver function tests were all within normal limits. Urinalysis was obtained and was within normal limits. CT scan of the abdomen and pelvis was obtained. There is a moderate amount of fecal material noted in the colon. There is no evidence of obstruction. Patient was given a repeat bolus of normal saline. Patient normally ambulates at home. Patient is unable to ambulate here in the emergency department. Case was discussed with the hospitalist. She will admit the patient to her service. Family understood and were agreeable with the plan. All questions were answered. Lab Data Attestation: I reviewed the patient's lab results. Labs: Laboratory Results - last 24 hr 04/06/21 04/06/21 04/06/21 11:10 11:10 11:10 WBC 5.5 RBC 4.45 L Hgb 12.8 L Hct 39.7 L MCV 89.2 MCH 28.8 MCHC 32.2 RDW Std Deviation 49.1 H RDW Coeff of Adrian 15.0 H Plt Count 77 L MPV 9.8 Immature Gran % (Auto) 0.200 Neut % (Auto) 54.7 Lymph % (Auto) 31.8 [place] % (Auto) 11.8 H Eos % (Auto) 1.1 Baso % (Auto) 0.4 Absolute Neuts (auto) 3.0 Absolute Lymphs (auto) 1.75 Nucleated RBC % 0 Sodium 140 Potassium 3.6 Chloride 100 Carbon Dioxide 36.0 H Anion Gap 4 L BUN 24 H Creatinine 2.04 H Estim Creat Clear Calc 53.29 Est GFR (MDRD) Af Amer 47 L Est GFR (MDRD) Non-Af 39 L BUN/Creatinine Ratio 11.8 Glucose 94 Calcium 13.0 H* Total Bilirubin 0.40 AST 9 L ALT 8 L Alkaline Phosphatase 60 Total Protein 8.1 Albumin 3.2 Globulin 4.9 H Albumin/Globulin Ratio 0.7 L Lipase 16 L Urine Color Urine Clarity Urine pH Ur Specific [place] Urine Protein Urine Glucose (UA) Urine Ketones Urine Occult Blood Urine Nitrite Urine Bilirubin Urine Urobilinogen Ur Leukocyte Esterase Urine RBC Urine WBC Ur Squamous Epith Cells Amorphous Sediment Urine Bacteria Urine Mucus Valproic Acid 104 H 04/06/21 13:40 WBC RBC Hgb Hct MCV MCH MCHC RDW Std Deviation RDW Coeff of Adrian Plt Count MPV Immature Gran % (Auto) Neut % (Auto) Lymph % (Auto) [place] % (Auto) Eos % (Auto) Baso % (Auto) Absolute Neuts (auto) Absolute Lymphs (auto) Nucleated RBC % Sodium Potassium Chloride Carbon Dioxide Anion Gap BUN Creatinine Estim Creat Clear Calc Est GFR (MDRD) Af Amer Est GFR (MDRD) Non-Af BUN/Creatinine Ratio Glucose Calcium Total Bilirubin AST ALT Alkaline Phosphatase Total Protein Albumin Globulin Albumin/Globulin Ratio Lipase Urine Color Yellow Urine Clarity Sl. Cloudy Urine pH 8.0 Ur Specific [place] 1.010 Urine Protein Negative Urine Glucose (UA) Normal Urine Ketones Negative Urine Occult Blood Negative Urine Nitrite Negative Urine Bilirubin Negative Urine Urobilinogen Normal Ur Leukocyte Esterase Negative Urine RBC 0 SEEN Urine WBC 0-5 SEEN Ur Squamous Epith Cells 0 SEEN Amorphous Sediment 1+ Urine Bacteria 0 SEEN Urine Mucus 0 SEEN Valproic Acid Radiography Diagnostic Testing: Clinical Impression(s) from Imaging Studies Abdomen/Pelvis CT 04/06/21 11:56 IMPRESSION: Moderate amount of fecal material is seen in the colon. Electronically Signed: Karthik Armstrong MD at 12:29 EST , Treatment and Re-Evaluation Vital Sign Attestation:: Vital signs were reviewed prior to admission. They are stable. Discharge Plan Dx/Rx/DC Orders Clinical Impression: Dehydration, Abdominal pain, Debility, Hypercalcemia Disposition Disposition: Acute Care Hospital [facility]
[2021-04-06 11:22] LABS: Absolute Lymphocyte Count 1.75 X10^3/uL (0.83-4.51); Basophil# 0.02 X10^3/uL; Basophil% 0.4 % (0-1); Eosinophil# 0.06 X10^3/uL; Eosinophils% 1.1 % (0-5); Hematocrit 39.7 % (40-54); Hemoglobin 12.8 g/dL (13.0-16.5); Lymphocyte # 1.75 X10^3/ul (0.83-4.51); Lymphocyte % 31.8 % (19-41); Mean Corp Hgb Conc 32.2 g/dL (32-36); Mean Corpuscular Hgb 28.8 pg (27.0-32.0); Mean Corpuscular Volume 89.2 fL (80-94); Mean Platelet Vol. 9.8 fl (6.2-12.0); Monocyte# 0.65 X10^3/uL; Monocyte% 11.8 % (0-10); NRBC Flagged by Analyzer 0 % (0-5); Neutrophil # 3.01 X10^3/uL (2.7-7.7); Neutrophil % 54.7 % (47-70); POSITIVE COUNT YES; Platelet Count 77 K/mm3 (150-450); RBC Distribution Width SD 49.1 fl (35.1-43.9); Red Blood Count 4.45 M/mm3 (4.6-6.2); White Blood Count 5.5 K/mm3 (4.4-11.0)
[2021-04-06] MEDS: 0.9% Normal Saline 1,000 ML 1000 ML IV ×2 (11:30→14:50)
[2021-04-06] MEDS: Ondansetron 4 MG/2 ML Vial IV (11:30)
--- NOTE | 2021-04-06 11:44 | ED.RN ---
calcium 13.0 result received. aware.
[2021-04-06 11:45] LABS: ALB/GLOB Ratio 0.7 RATIO (0.9-2.4); AST(SGOT) 9 U/L (15-37); Alanine Aminotransfer ALT/SGPT 8 U/L (16-61); Albumin, Serum 3.2 g/dL (3.2-5.0); Alkaline Phosphatase 60 U/L (45-117); Anion Gap 4 (5-15); BUN 24 mg/dL (7-18); BUN/Creat Ratio 11.8 RATIO (10-20); Chloride 100 mmol/L (98-107); Creatinine, Serum 2.04 mg/dL (0.70-1.30); EST Glomerular Filtration Rate 39 mL/min (>60); Est Glom Filt Rate - Afr Amer 47 mL/min (>60); Estimated Creatinine Clearance 53.29 ml/min; Globulin 4.9 g/dL (2.2-4.2); Glucose 94 mg/dL (74-106); Lipase 16 U/L (73-393); Potassium 3.6 mmol/L (3.5-5.1); Protein, Total 8.1 g/dL (6.4-8.2); Sodium Level 140 mmol/L (136-145)
--- NOTE | 2021-04-06 11:56 | CT_ITS ---
STUDY: CT ABDOMEN AND PELVIS WITH CONTRAST REASON FOR EXAM: Male, 40 years old. Abdominal pain -- IV PO Contrast RADIATION DOSAGE (If Supplied By Facility): CTDIvol = ( 9.23 ) mGy, DLP = ( 692.62 ) mGycm TECHNIQUE: Transaxial images were obtained from the dome of the diaphragm to the symphysis pubis with oral contrast. Oral and amp; IV Gastrografin and amp; 100mL Isovue-300 was administered. Sagittal and coronal images were reconstructed. Individualized dose optimization techniques were used for this CT. COMPARISON: None. FINDINGS: The visualized lung bases are unremarkable. The visualized portions of the heart are within normal limits. Normal liver. Normal gallbladder and extrahepatic biliary system. Normal spleen. Normal pancreas. Normal bilateral adrenal glands. Normal right kidney. Normal left kidney. Normal visualized stomach. Normal small intestine. Moderate amount of fecal material is seen in the colon. The appendix is visualized and appears normal. Normal abdominal aorta. Normal inferior vena cava. Normal retroperitoneum. Normal urinary bladder. Normal abdominal wall. Normal osseous structures. CT/Abdomen/Pelvis WITH Contrast IMPRESSION: Moderate amount of fecal material is seen in the colon. Electronically Signed: Karthik Armstrong MD at 12:29 [facility] ,
[2021-04-06 13:47] LABS: Bacteria 0 SEEN /hpf (None Seen); Mucous, Urine 0 SEEN /hpf (<or=2+); Red Blood Cells-Urine 0 SEEN /hpf (0-5); Squamous Epithelial Cells - UA 0 SEEN /hpf (0-5)
[2021-04-06 13:53] LABS: Valproic Acid (Depakene) Level 104 ug/mL (50-100)
[2021-04-06 14:06] LABS: Color, Urine Yellow (Yellow); Glucose, Dipstick Normal (Normal); Ketone-Dipstick Negative (Negative); Leukocyte Esterase-Dipstick Negative /ul (Negative); Nitrite-Dipstick Negative (Negative); Occult Blood-Urine Negative /ul (Negative); Protein-Dipstick Negative (Negative); Urine Bilirubin Dipstick Negative (Negative); Urine Clarity Sl. Cloudy (Clear); Urine Urobilinogen Normal (Normal)
[2021-04-06 14:11] LABS: Amorphous Sediment 1+; White Blood Cells 0-5 SEEN /hpf (0-5)
--- NOTE | 2021-04-06 16:10 | NURSING ---
MED SURG JADA DEHYDRATION, HYPERCALCEMIA, DEBILITY
--- NOTE | 2021-04-06 16:20 | CASEMGMT ---
UMBERTO ORTIZ Assessment: RN CM to room to meet with patient for initial transition planning/care coordination assessment. UMBERTO ORTIZ introduced self and role at [facility]. Patient with hx of moderate/severe mental disability. History provided by patient's brother Reid Pedraza and sister Sandhya Chang present at bedside. Brother and sister active in transition planning. Care providers, pharmacy, and demographics verified/updated at this time. Admitting Dx: dehydration, hypercalcemia, debility PCP: Carlo Wellington Specialists: Jahaira Whitney- psychiatrist ([place], [place]) Preferred Pharmacy: [facility] Insurance: Medicaid Prescription Benefit: yes Living Will/HPOA: Patient's sister reports patient has a living will and HPOAs are Wilder and Sandhya Chang. These forms are not on file at [facility]. LNOK: Brother Reid Pedraza and sister Sandhya Chang Living Arrangements: Patient lives with brother and father in two story house with 6 steps to enter the home and a handrail present. Brother reports patient is typically independent with ADLs but has been requiring assistance in the past few days. Patient typically ambulates independently without the use of an assistive device but has been very weak and unable to today. 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 Patient does not have a walker or cane available. Sister reports previous HHC but unsure of agency name following hospitalization at [facility] 11/18/20 - 12/05/20 for COVID-19 and respiratory failure. Denies previous SNF stays. Patient's brother and sister have no concerns with going home at time of discharge. UMBERTO ORTIZ spoke with siblings about HHC services at time of discharge but family not interested at this time. CM to follow for any discharge planning/needs. Patient's brother and sister voice no concerns/needs at this time. Advised patient's brother and sister to ask for CM if any questions/concerns/needs arise. Voice understanding. Plan: home
--- NOTE | 2021-04-06 17:43 | HP.PCM.HOS_ITS ---
HPI - General General Date of Admission: 04/06/21 HPI Narrative CELESTE HOOK, is a 40 M who presented to the emergency department was [facility] on 04/06/2021 with his mother and father. The patient has baseline MRDD and severe behavioral disorders. He is on multiple antipsychotics and his parents state that if he is not on these medications he has severe behavioral disturbances. They indicate that he had Covid in November 2020 from which she recovered well from after some time. He was back to his baseline but about 6 to 8 weeks ago he started having issues with nausea and vomiting. He has lost 20 to 30 pounds per their report and is not eating regularly. They state his last regular meal was about 3 weeks ago. He continues to have intermittent vomiting although it is difficult to get history from him as far as symptoms with his baseline MRDD. He has chronic constipation but this has not been a significant issue for him. He has not had any hematemesis per their report but is not keeping down food on a regular basis. In the emergency department his vital signs were stable. His CBC shows a normal white count with a mild anemia that appears to be normocytic and stable. His platelets are low at 77,000 however this appears to be chronic as well. He has no left shift. He appears markedly dehydrated on his BMP with a serum bicarb of 36, a BUN of 24 and a serum creatinine of 2.04. His calcium is elevated at 13 however I suspect this is related to his severe dehydration. His LFTs are normal. Of note he had a CRP done on 03/29/2021 which was elevated at 21.8. His lipase was normal at 16. A UA was unremarkable. A CT of his abdomen pelvis was performed and shows only constipation and no other significant abnormalities. Given his clinical state and his multiple abnormalities on his lab request for admission was made by the emergency department physician. In the ED he received 2 L of IV fluids. [facility] Medical History Bipolar 1 disorder Mental disability Home Medications buspirone 15 mg PO TID 04/18/18 [History Last Taken 04/06/21] clozapine 50 mg PO DAILY 04/18/18 [History Last Taken 04/06/21] clozapine 100 mg PO QHS 04/18/18 [History Last Taken 04/05/21] divalproex 500 mg PO TID 04/18/18 [History Last Taken 04/06/21] divalproex 250 mg PO BREAKFAST 07/17/18 [History Last Taken 04/06/21] diaper,brief,adult,disposable [Briefs] #10 ea 12/05/20 [Rx Last Taken Unknown] sennosides-docusate sodium [Stool Softener-Stimulant Laxat] 1 tab PO BID #0 tab 12/05/20 [Rx Last Taken 04/06/21] clonazepam 0.5 mg PO BID 04/06/21 [History Last Taken 04/06/21] ondansetron 4 mg PO Q8H PRN PRN #10 tab 04/06/21 [Rx Last Taken Unknown] oxybutynin chloride 10 mg PO DAILY 04/06/21 [History Last Taken 04/06/21] quetiapine [Seroquel] 25 mg PO BID 04/06/21 [History Last Taken 04/06/21] Allergy/AdvReac Type Severity Reaction Status Date / Time No Known Allergies Allergy Verified 12/12/20 12:35 no significant family history no surgical history Social History household members: family Smoking Status: Never smoker alcohol intake: never ROS Review of Systems ROS Unobtainable: due to mental condition Vital Signs Vital Signs Vital Signs: 04/06/21 10:57 04/06/21 13:00 04/06/21 15:00 Temperature 97.1 F L Temperature Source Axillary Pulse Rate 82 74 68 Respiratory Rate 18 14 18 Blood Pressure 138/101 H 138/101 H 138/92 H Blood Pressure Mean 113 113 107 Blood Pressure Source Blood Pressure Position Blood Pressure Location Pulse Ox 96 96 94 Oxygen Delivery Method Room Air Room Air Room Air 04/06/21 16:21 04/06/21 17:02 Temperature 98.4 F 97.7 F L Temperature Source Temporal Temporal Pulse Rate 79 83 Respiratory Rate 16 16 Blood Pressure 143/109 H 142/97 H Blood Pressure Mean 120 112 Blood Pressure Source Monitor Blood Pressure Position Sitting Blood Pressure Location Right Arm Pulse Ox 96 95 Oxygen Delivery Method Room Air Room Air Weight Weight: 78.154 kg Body Mass Index (BMI) 23.3 Physical Exam Const alert Constitutional Narrative: Middle-aged white male who appears pale lying in bed, family at bedside, patient repeats there is something wrong but this is the only conversation I can ascertain, MRDD at baseline, thin HEENT normocephalic, head/scalp atraumatic and hearing grossly normal bilaterally HEENT Narrative: Mucous membranes are extremely dry, oral exam is limited as patient is not necessarily consistently following commands, teeth with dried mucus on them Eyes PERRL and EOMs intact bilaterally Eyes Narrative: No scleral icterus, conjunctival pallor Neck no lymphadenopathy, supple, no JVD and no carotid bruits Neck Narrative: Trachea midline, no thyroid enlargement Resp normal respiratory effort, no retractions, no use of accessory muscles and clear to auscultation bilaterally Auscultation: Negative for crackles, rales, rhonchi or wheezes Cardio regular rate, regular rhythm, S1 normal heart sound, S2 normal heart sound, no murmurs, no rub, no gallops, no clicks and no JVD GI soft to palpation and non-distended GI Narrative: Patient resistant to abdominal exam although it is difficult with his baseline MRDD, bowel sounds are normal Extremity no clubbing, cyanosis or edema Extremity Narrative: Decreased lean muscle mass Peripheral Pulses: Yes pulses 2+ throughout Skin no rashes or lesions noted, no wounds, skin turgor normal, no jaundice, no petechiae and no mottling Skin Narrative: Extremely pale Neuro CN's II-XII intact bilaterally, moves all extremities and no focal motor deficits Sensorium / Orientation: awake and alert Psych Psych Narrative: Very flat affect Results Lab / Micro Data Attestation: I reviewed the patient's lab results. Result Diagrams: 04/06/21 11:10 04/06/21 11:10 Labs: Laboratory Results - last 24 hr 04/06/21 11:10: WBC 5.5, RBC 4.45 L, Hgb 12.8 L, Hct 39.7 L, MCV 89.2, MCH 28.8, MCHC 32.2, RDW Std Deviation 49.1 H, RDW Coeff of Adrian 15.0 H, Plt Count 77 L, MPV 9.8, Immature Gran % (Auto) 0.200, Neut % (Auto) 54.7, Lymph % (Auto) 31.8, [place] % (Auto) 11.8 H, Eos % (Auto) 1.1, Baso % (Auto) 0.4, Absolute Neuts (auto) 3.0, Absolute Lymphs (auto) 1.75, Nucleated RBC % 0 04/06/21 11:10: Sodium 140, Potassium 3.6, Chloride 100, Carbon Dioxide 36.0 H, Anion Gap 4 L, BUN 24 H, Creatinine 2.04 H, Estim Creat Clear Calc 53.29, Est GFR (MDRD) Af Amer 47 L, Est GFR (MDRD) Non-Af 39 L, BUN/Creatinine Ratio 11.8, Glucose 94, Calcium 13.0 H*, Total Bilirubin 0.40, AST 9 L, ALT 8 L, Alkaline Phosphatase 60, Total Protein 8.1, Albumin 3.2, Globulin 4.9 H, Albumin/Globulin Ratio 0.7 L, Lipase 16 L 04/06/21 11:10: Valproic Acid 104 H 04/06/21 13:40: Urine Color Yellow, Urine Clarity Sl. Cloudy, Urine pH 8.0, Ur Specific [place] 1.010, Urine Protein Negative, Urine Glucose (UA) Normal, Urine Ketones Negative, Urine Occult Blood Negative, Urine Nitrite Negative, Urine Bilirubin Negative, Urine Urobilinogen Normal, Ur Leukocyte Esterase Negative, Urine RBC 0 SEEN, Urine WBC 0-5 SEEN, Ur Squamous Epith Cells 0 SEEN, Amorphous Sediment 1+, Urine Bacteria 0 SEEN, Urine Mucus 0 SEEN Radiology Impression Abdomen/Pelvis CT 04/06/21 11:56 IMPRESSION: Moderate amount of fecal material is seen in the colon. Electronically Signed: Karthik Armstrong MD at 12:29 EST , Assessment & Plan Assessment/Plan (1) Nausea & vomiting: (2) Severe malnutrition: (3) Thrombocytopenia: (4) JUNITO (acute kidney injury): (5) Dehydration: (6) Hypercalcemia: PLAN: Nausea and vomiting -Per parents this has been a problem over the last 6 to 8 weeks -Patient with significant weight loss -P.o. intake has been extremely poor when at baseline it is fine -We will start IV PPI -P.o. medications have seemingly not been a problem -As needed Zofran -Patient is normal -LFTs are normal -Consult to gastroenterology for possible EGD Acute kidney injury secondary to dehydration -Baseline serum creatinine appears to be 0.5-0.8 -Currently 2.04 -Patient was given 2 L of IV fluids in the emergency department -Continue IV fluids on the floor with LR at 75 cc/h -If no improvement in renal function next 24 hours will perform further work-up including retroperitoneal ultrasound and urine lites -Avoid nephrotoxins as able Hypercalcemia -Suspect related to hemoconcentration -We will follow and if still elevated tomorrow we will perform further work-up Thrombocytopenia -This appears to be more chronic as of late -May be related to antipsychotics -Recommend outpatient follow-up with psychiatry after discharge for assessment -Family states that if we stop his antipsychotics he will have significant psychiatric issues Severe malnutrition -Significant weight loss in the past 2 months -We will recommend slow initiation of oral intake with some supplements as I am concerned about refeeding syndrome -Check phosphorus and magnesium level -Consult dietitian MRDD/bipolar disorder -Per family patient with severe psychiatric disturbances -Continue home psychiatric medications -We will check ammonia level given patient is on valproic acid -Would recommend follow-up as an outpatient for reevaluation of his antipsychotics given his thrombocytopenia Chronic constipation -Continue home stool softeners -We will initiate lactulose 10 mg daily for now Recent COVID-19 infection -Patient had resolved and was doing well since being diagnosed with this in November DVT prophylaxis -Heparin -SCDs CODE STATUS -DNR CCA as per discussion with family in the emergency department Charges/Coding Visit Charges Inpatient E&M: 19958 Init Hosp L3
[2021-04-06] MEDS: Lactated Ringers 1,000 ML 70 ML IV (18:18)
--- NOTE | 2021-04-06 18:49 | CON.PCM.GI_ITS ---
HPI Consult Data Date of Consult: 04/06/21 HPI Narrative HPI Narrative: CELESTE HOOK, is aWith his parents with a chief complaint of nausea and vomiting. He has a past medical history of mental retardation, seizure disorder and MDD. Over the last2 months he has been developing worsening nausea and vomiting leading to a 35 pound weight loss as per his mother was at the bedside. When he presented to the hospital day he was hypertensive and lethargic. His biochemical profile had shown acute kidney injury with a anemia and thrombocytopenia. He also had a severe metabolic alkalosis. He is not able to give any history and all of the history is from his mother who is at the bedside. Surprisingly enough on his biochemical profile he did have a normal blood glucose. He was also discovered to have a severe hypercalcemia. All other 16 review of systems are negative except as per positive mentioned HPI. [facility] Medical History Bipolar 1 disorder Mental disability Home Medications buspirone 15 mg PO TID 04/18/18 [History Last Taken 04/06/21] clozapine 50 mg PO DAILY 04/18/18 [History Last Taken 04/06/21] clozapine 100 mg PO QHS 04/18/18 [History Last Taken 04/05/21] divalproex 500 mg PO TID 04/18/18 [History Last Taken 04/06/21] divalproex 250 mg PO BREAKFAST 07/17/18 [History Last Taken 04/06/21] diaper,brief,adult,disposable [Briefs] #10 ea 12/05/20 [Rx Last Taken Unknown] sennosides-docusate sodium [Stool Softener-Stimulant Laxat] 1 tab PO BID #0 tab 12/05/20 [Rx Last Taken 04/06/21] clonazepam 0.5 mg PO BID 04/06/21 [History Last Taken 04/06/21] ondansetron 4 mg PO Q8H PRN PRN #10 tab 04/06/21 [Rx Last Taken Unknown] oxybutynin chloride 10 mg PO DAILY 04/06/21 [History Last Taken 04/06/21] quetiapine [Seroquel] 25 mg PO BID 04/06/21 [History Last Taken 04/06/21] Allergy/AdvReac Type Severity Reaction Status Date / Time No Known Allergies Allergy Verified 12/12/20 12:35 Family History no significant family his Surgical History no surgical history Social History household members: family Smoking Status: Never smoker alcohol intake: never ROS Gastrointestinal Gastrointestinal: Reports nausea, vomiting and weight changes Physical Exam Const alert General Appearance: cooperative Orientation / Consciousness: oriented to person HEENT hearing grossly normal bilaterally Head and Scalp: normal to inspection Face and Sinus: face symmetric Nose: external nose normal Mouth: oral and palatal mucosa normal Eyes conjunctivae normal General Eye: normal appearance of both eyes Neck full ROM General: normal visual inspection Lymph Lymphatic: no lymphadenopathy noted Chest inspection of chest normal and palpation of chest normal Chest: symmetrical chest wall rise Resp normal respiratory effort Effort and Inspection: able to speak in complete sentences Cardio regular rate GI non-distended Percussion: normal to percussion Rectal Exam: deferred Neuro Speech: speech normal Gait (Neuro): normal gait Lab / Micro Data Result Diagrams: 04/06/21 11:10 04/06/21 11:10 Labs: Laboratory Results - last 24 hr 04/06/21 11:10: WBC 5.5, RBC 4.45 L, Hgb 12.8 L, Hct 39.7 L, MCV 89.2, MCH 28.8, MCHC 32.2, RDW Std Deviation 49.1 H, RDW Coeff of Adrian 15.0 H, Plt Count 77 L, MPV 9.8, Immature Gran % (Auto) 0.200, Neut % (Auto) 54.7, Lymph % (Auto) 31.8, [place] % (Auto) 11.8 H, Eos % (Auto) 1.1, Baso % (Auto) 0.4, Absolute Neuts (auto) 3.0, Absolute Lymphs (auto) 1.75, Nucleated RBC % 0 04/06/21 11:10: Sodium 140, Potassium 3.6, Chloride 100, Carbon Dioxide 36.0 H, Anion Gap 4 L, BUN 24 H, Creatinine 2.04 H, Estim Creat Clear Calc 53.29, Est GFR (MDRD) Af Amer 47 L, Est GFR (MDRD) Non-Af 39 L, BUN/Creatinine Ratio 11.8, Glucose 94, Calcium 13.0 H*, Total Bilirubin 0.40, AST 9 L, ALT 8 L, Alkaline Phosphatase 60, Total Protein 8.1, Albumin 3.2, Globulin 4.9 H, Albumin/Globulin Ratio 0.7 L, Lipase 16 L 04/06/21 11:10: Valproic Acid 104 H 04/06/21 11:10: C-React Prot Ext Range 18.60 H 04/06/21 13:40: Urine Color Yellow, Urine Clarity Sl. Cloudy, Urine pH 8.0, Ur Specific [place] 1.010, Urine Protein Negative, Urine Glucose (UA) Normal, Urine Ketones Negative, Urine Occult Blood Negative, Urine Nitrite Negative, Urine Bilirubin Negative, Urine Urobilinogen Normal, Ur Leukocyte Esterase Negative, Urine RBC 0 SEEN, Urine WBC 0-5 SEEN, Ur Squamous Epith Cells 0 SEEN, Amorphous Sediment 1+, Urine Bacteria 0 SEEN, Urine Mucus 0 SEEN 04/06/21 17:57: Ammonia 21.0 Radiology Impression Abdomen/Pelvis CT 04/06/21 11:56 IMPRESSION: Moderate amount of fecal material is seen in the colon. Electronically Signed: Karthik Armstrong MD at 12:29 EST , Assessment & Plan Assessment/Plan (1) Nausea & vomiting: PLAN: The differential diagnosis of nausea vomiting could be secondary to antipsychotic medicines, gastritis, esophagitis, peptic ulcer disease, gastric outlet, medication induced gastroparesis. He will undergo an upper endoscopy evaluate his upper GI tract. His mother was explained alternatives, risk, be nefits including not withstanding bleeding, infection, sepsis, perforation, need for urgent . He will have ASA of 1. (2) Thrombocytopenia: PLAN: Thrombocytopenia possibly nutritional versus bone marrow toxicity from his antipsychotic medicines. (3) Severe malnutrition: PLAN: Severe malnutrition secondary to nausea vomiting causing weight loss. (4) Hypercalcemia: PLAN: Severe hypercalcemia possibly secondary to metabolic alkalosis. This could be contraction alkalosis. Recommend aggressive IV fluids. Charges/Coding Visit Charges Inpatient E&M: 37886 Init Hosp L3
[2021-04-06] MEDS: clonazePAM 0.5 MG Tablet PO (19:51)
[2021-04-06] MEDS: Divalproex Sodium 250 MG Tablet 500 MG PO ×2 (20:10→23:05)
[2021-04-06] MEDS: busPIRone 15 MG TABLET PO ×2 (20:10→23:06)
[2021-04-06] MEDS: Senna/Docusate Sodium 1 Tablet PO (23:03)
[2021-04-06] MEDS: QUEtiapine 25 MG Tablet PO (23:03)
[2021-04-06] MEDS: Heparin Injection (Vial) 5,000 UNIT/ML VIAL 5000 UNIT SC (23:03)
[2021-04-07] VITALS (13 sets, daily range): BP systolic 111–137; BP diastolic 83–101; PULSE 66–79; RESP 14–18; TEMP 35.9–36.6; O2SAT 92–100; BMI 23.3
--- NOTE | 2021-04-07 | EGD_PTH ---
PATIENT: CELESTE HOOK LOC: [facility] U#:[id number] AGE/SX: 40/M ROOM: OH311 RE04/06/[address]: Dr. Caryn Pope, : 1980 BED: 1 DIS: 04/09/2021 SPEC #: [id number] RECD: 04/07/21 13:00 STATUS: MIGUEL RENDON #: [id number] SEBAS: 04/07/21 00:[address]: Bon Mallory DEPT: SURGICAL PATHOLOGY RECD BY: Jose Sanders ENTERED: 04/07/21 13:56 SP TYPE: EGD BIOPSY OTHR DR: Dr. Carlo Wellington, DO Dr. Caryn Pope DO Tissues: A - Duodenum, NOS B - Gastric mucous membrane Esophagus, NOS Procedures: Special Stain Group II Surgery Specimen Level IV Alcian Blue/PAS (control) Comments: @ Ordering doctor for SUIV edited from to @ diya GONZALES at 04/07/21 [id number] @ Submitting doctor edited from to @ diya GONZALES at 04/07/21 0282 HEADER OPERATION[place] [place] PRE-[place] DIAGNOSIS: Nausea, vomiting, thrombocytopenia TISSUE SUBMITTED: A ? Duodenum biopsy, B ? Antrum biopsy for histo and H. pylori, C ? Distal esophagus biopsy MICROSCOPIC DIAGNOSIS A. Duodenum, biopsy: Fragments of duodenal mucosa, no pathologic diagnosis. B. Antrum, biopsy: Mild gastritis. See microscopic description and comment. C. Distal esophagus, biopsy: Fragments of gastroesophageal mucosa with mild chronic inflammation. Intestinal metaplasia (goblet cell metaplasia) is not identified. See comment. SJ:sofia 04/10/2021 COMMENT B. The results of immunohistochemistry for Helicobacter pylori will be reported separately ([id number]). C. Alcian blue/PAS stain with matched control is used in the evaluation of the specimen. MICROSCOPIC DESCRIPTION Slides are reviewed. B. The specimen shows fragments of gastric mucosa with chronic inflammatory cell infiltrates in the lamina propria consisting of lymphocytes and plasma cells, consistent with mild chronic gastritis. GROSS DESCRIPTION A - Received in fixative is one container labeled with the patient's name and designated duodenum biopsy. The specimen consists of one irregular fragment of light grace soft tissue that measures 0.6 x 0.3 x 0.1 cm. The specimen is totally submitted in one cassette. B - Received in fixative is one container labeled with the patient's name and designated antrum biopsy. The specimen consists of multiple irregular fragments of light grace soft tissue that in aggregate measure 1 x 0.4 x 0.1 cm. The specimen is totally submitted in one cassette. C - Received in fixative is one container labeled with the patient's name and designated distal esophagus biopsy. The specimen consists of two irregular fragments of light grace soft tissue that in aggregate measure 0.8 x 0.2 x 0.1 cm. The specimen is totally submitted in one cassette. / SJ:rg 04/07/2021 TC:3 CPT: 07914 x3, 09628
--- NOTE | 2021-04-07 | IMM_PTH ---
PATIENT: CELESTE HOOK LOC: [facility] U#:[id number] AGE/SX: 40/M ROOM: AK31 RE04/06/[address]: Dr. Caryn Pope DO : 1980 BED: 1 DIS: 04/09/2021 SPEC #: [id number] RECD: 04/07/21 14:34 STATUS: SOUT REQ #: [id number] SEBAS: 04/07/21 00:[address]: Bon Mallory DEPT: IMMUNOHISTOCHEMISTRY RECD BY: Brooklyn Hernandez ENTERED: 04/07/21 14:35 SP TYPE: IMMUNO OTHR DR: DO Dr. Caryn Bonds DO Dr. Rahsaan Friend, DO Tissues: B - Stomach, NOS Procedures: H Pylori (initial) Comments: @ Ordering doctor for H.PYLORI edited from to @ by TREVOR at 04/07/21 1439 @ Submitting doctor edited from to @ by TREVOR at 04/07/21 1439 PHYSICIAN & INSTITUTION [place] [phone] SPECIMEN INFORMATION: Tissue Source: B ? Antrum biopsy Clinical Info: Nausea, vomiting, thrombocytopenia Specimen Number: [id number] CPT code: 67311 METHODOLOGY: Deparaffinized sections of prefer/formalin-fixed tissue or PAP/DQ stained slides are incubated with monoclonal/polyclonal antibodies/oligonucleotide probes. Localization is made via biotin free immunoperoxidase method. Appropriate controls are performed and reacted as expected. Results on target cell population are indicated in the following table: RESULTS: ANTIBODY / CLONE RESULT Block B H Pylori (polyclonal) negative These tests were developed and their performance characteristics determined by [facility]. They may not have been cleared or approved by the U.S. Food and Drug Administration. The FDA has determined that such clearance or approval is not necessary. INTERPRETATION: B. Antrum biopsy: Negative for Helicobacter pylori organisms. LULA:sofia 04/11/2021
[2021-04-07] MEDS: Lactated Ringers 1,000 ML 70 ML IV ×2 (04:42→18:18)
[2021-04-07 06:27] LABS: Absolute Lymphocyte Count 1.56 X10^3/uL (0.83-4.51); Absolute Neutrophil Count 1.6 X10^3/uL (2.0-7.7); Basophil# 0.02 X10^3/uL; Basophil% 0.5 % (0-1); Eosinophil# 0.15 X10^3/uL; Hematocrit 33.3 % (40-54); Hemoglobin 11.1 g/dL (13.0-16.5); Lymphocyte # 1.56 X10^3/ul (0.83-4.51); Lymphocyte % 41.9 % (19-41); Mean Corp Hgb Conc 33.3 g/dL (32-36); Mean Corpuscular Hgb 29.7 pg (27.0-32.0); Mean Platelet Vol. 9.9 fl (6.2-12.0); Monocyte# 0.37 X10^3/uL; Monocyte% 9.9 % (0-10); NRBC Flagged by Analyzer 0 % (0-5); Neutrophil # 1.61 X10^3/uL (2.7-7.7); Neutrophil % 43.4 % (47-70); POSITIVE COUNT YES; Platelet Count 62 K/mm3 (150-450); RBC Distribution Width CV 14.8 % (11.6-14.6); RBC Distribution Width SD 47.9 fl (35.1-43.9); Red Blood Count 3.74 M/mm3 (4.6-6.2); White Blood Count 3.7 K/mm3 (4.4-11.0)
[2021-04-07 07:12] LABS: ALB/GLOB Ratio 0.7 RATIO (0.9-2.4); AST(SGOT) 11 U/L (15-37); Alanine Aminotransfer ALT/SGPT < 6 U/L (16-61); Albumin, Serum 2.6 g/dL (3.2-5.0); Alkaline Phosphatase 51 U/L (45-117); Anion Gap 3 (5-15); BUN 22 mg/dL (7-18); BUN/Creat Ratio 13.3 RATIO (10-20); Calcium,Total 11.6 mg/dL (8.5-10.1); Chloride 105 mmol/L (98-107); Creatinine, Serum 1.66 mg/dL (0.70-1.30); EST Glomerular Filtration Rate 49 mL/min (>60); Est Glom Filt Rate - Afr Amer 59 mL/min (>60); Estimated Creatinine Clearance 65.58 ml/min; Globulin 3.8 g/dL (2.2-4.2); Glucose 72 mg/dL (74-106); Magnesium 2.9 mg/dL (1.6-2.6); Phosphorus 2.6 mg/dL (2.5-4.9); Potassium 3.4 mmol/L (3.5-5.1); Protein, Total 6.4 g/dL (6.4-8.2); Sodium Level 141 mmol/L (136-145); Thyroid Stim Hormone (TSH) 1.42 uIU/mL (0.358-3.74)
[2021-04-07] MEDS: Divalproex Sodium 250 MG Tablet PO (08:52)
[2021-04-07] MEDS: QUEtiapine 25 MG Tablet PO ×2 (08:52→21:32)
[2021-04-07] MEDS: clonazePAM 0.5 MG Tablet PO ×2 (08:52→15:16)
[2021-04-07] MEDS: Tolterodine Tartrate 2 MG CAP.SA PO (08:52)
[2021-04-07] MEDS: Heparin Injection (Vial) 5,000 UNIT/ML VIAL 5000 UNIT SC ×2 (08:53→21:32)
[2021-04-07] MEDS: Potassium Chloride Oral Tablet 20 MEQ 40 MEQ PO (08:53)
[2021-04-07] MEDS: Senna/Docusate Sodium 1 Tablet PO ×2 (08:53→21:33)
[2021-04-07] MEDS: CLOZAPINE 50 MG PO (08:55)
[2021-04-07] MEDS: Lactulose 20 GM/30 ML UDC 10 GM PO (08:59)
[2021-04-07] MEDS: busPIRone 15 MG TABLET PO ×3 (09:29→21:30)
--- NOTE | 2021-04-07 11:42 | PCM.PN.HOSP ---
Subjective Subjective No significant issues overnight. Father remains at the bedside and states the patient is doing overall okay. No emesis overnight however the patient has been not eating. He is tolerating his oral medication without difficulty. EGD planned for later today. Objective Data Objective Data Vital Signs: Vital Signs Temp Pulse Resp BP Pulse Ox 97.6 F L 74 14 125/96 H 93 04/07/21 08:48 04/07/21 08:48 04/07/21 08:48 04/07/21 08:48 04/07/21 08:48 Oxygen Delivery Method Room Air Weight: 78.154 kg Body Mass Index (BMI) 23.3 Intake & Output: Intake and Output for Last 24 Hours 04/05/21 04/06/21 04/07/21 23:59 23:59 23:59 Intake Total 1999 958 / 958 Balance 1999 958 / 958 Lab / Micro Data Result Diagrams: 04/07/21 05:48 04/07/21 05:48 Labs: Laboratory Results - last 24 hr 04/06/21 11:10: Sodium 140, Potassium 3.6, Chloride 100, Carbon Dioxide 36.0 H, Anion Gap 4 L, BUN 24 H, Creatinine 2.04 H, Estim Creat Clear Calc 53.29, Est GFR (MDRD) Af Amer 47 L, Est GFR (MDRD) Non-Af 39 L, BUN/Creatinine Ratio 11.8, Glucose 94, Calcium 13.0 H*, Total Bilirubin 0.40, AST 9 L, ALT 8 L, Alkaline Phosphatase 60, Total Protein 8.1, Albumin 3.2, Globulin 4.9 H, Albumin/Globulin Ratio 0.7 L, Lipase 16 L 04/06/21 11:10: Valproic Acid 104 H 04/06/21 11:10: C-React Prot Ext Range 18.60 H 04/06/21 13:40: Urine Color Yellow, Urine Clarity Sl. Cloudy, Urine pH 8.0, Ur Specific [place] 1.010, Urine Protein Negative, Urine Glucose (UA) Normal, Urine Ketones Negative, Urine Occult Blood Negative, Urine Nitrite Negative, Urine Bilirubin Negative, Urine Urobilinogen Normal, Ur Leukocyte Esterase Negative, Urine RBC 0 SEEN, Urine WBC 0-5 SEEN, Ur Squamous Epith Cells 0 SEEN, Amorphous Sediment 1+, Urine Bacteria 0 SEEN, Urine Mucus 0 SEEN 04/06/21 17:57: Ammonia 21.0 04/07/21 05:48: WBC 3.7 L, RBC 3.74 L, Hgb 11.1 L, Hct 33.3 L, MCV 89.0, MCH 29.7, MCHC 33.3, RDW Std Deviation 47.9 H, RDW Coeff of Adrian 14.8 H, Plt Count 62 L, MPV 9.9, Immature Gran % (Auto) 0.300, Neut % (Auto) 43.4 L, Lymph % (Auto) 41.9 H, [place] % (Auto) 9.9, Eos % (Auto) 4.0, Baso % (Auto) 0.5, Absolute Neuts (auto) 1.6 L, Absolute Lymphs (auto) 1.56, Nucleated RBC % 0 04/07/21 05:48: Sodium 141, Potassium 3.4 L, Chloride 105, Carbon Dioxide 33.0 H, Anion Gap 3 L, BUN 22 H, Creatinine 1.66 H, Estim Creat Clear Calc 65.58, Est GFR (MDRD) Af Amer 59 L, Est GFR (MDRD) Non-Af 49 L, BUN/Creatinine Ratio 13.3, Glucose 72 L, Calcium 11.6 H, Phosphorus 2.6, Magnesium 2.9 H, Total Bilirubin 0.30, AST 11 L, ALT < 6 L, Alkaline Phosphatase 51, Total Protein 6.4, Albumin 2.6 L, Globulin 3.8, Albumin/Globulin Ratio 0.7 L, TSH 1.42 Radiography Diagnostic Testing: Radiology Impression Abdomen/Pelvis CT 04/06/21 11:56 IMPRESSION: Moderate amount of fecal material is seen in the colon. Electronically Signed: Karthik Armstrong MD at 12:29 EST , Physical Exam Const alert Constitutional Narrative: Middle-aged white male who appears pale lying in bed, father bedside, MRDD at baseline, thin Exam Limitations: other limitations Nutritional Appearance: thin HEENT normocephalic, head/scalp atraumatic and hearing grossly normal bilaterally HEENT Narrative: Mucous membranes are dry Head and Scalp: normocephalic Resp normal respiratory effort, no retractions, no use of accessory muscles and clear to auscultation bilaterally Auscultation: Negative for crackles, rales, rhonchi or wheezes Cardio regular rate, regular rhythm, S1 normal heart sound, S2 normal heart sound, no murmurs, no rub, no gallops, no clicks and no JVD GI normal to inspection, nondistended, normoactive bowel sounds, soft to palpation, non-tender and non-distended Extremity no clubbing, cyanosis or edema Extremity Narrative: Decreased lean muscle mass Peripheral Pulses: Yes pulses 2+ throughout Neuro moves all extremities and no focal motor deficits Sensorium / Orientation: awake and alert Psych Psych Narrative: Very flat affect Assessment & Plan Assessment/Plan (1) Nausea & vomiting: (2) Severe malnutrition: (3) Thrombocytopenia: (4) JUNITO (acute kidney injury): (5) Dehydration: (6) Hypercalcemia: PLAN: Nausea and vomiting -Per parents this has been a problem over the last 6 to 8 weeks -Patient with significant weight loss -P.o. intake has been extremely poor when at baseline it is fine -Continue IV PPI -P.o. medications have seemingly not been a problem -As needed Zofran -Patient is normal -LFTs are normal -EGD today -Gastroenterology is following Acute kidney injury secondary to dehydration -Baseline serum creatinine appears to be 0.5-0.8 -2.04 on admission -Down to 1.66 today -Patient was given 2 L of IV fluids in the emergency department -Continue IV fluids on the floor with LR at 75 cc/h -No need for further work-up at this time with improvement -Avoid nephrotoxins as able Hypercalcemia -Suspect related to hemoconcentration -Improving -11.6 today -We will follow and if still elevated tomorrow we will perform further work-up Thrombocytopenia -This appears to be more chronic as of late -Down some the last 24 hours however I suspect this is dilutional with fluid repletion as all cell lines have decreased -May be related to antipsychotics -Recommend outpatient follow-up with psychiatry after discharge for assessment -Family states that if we stop his antipsychotics he will have significant psychiatric issues Severe malnutrition -Significant weight loss in the past 2 months -We will recommend slow initiation of oral intake with some supplements as I am concerned about refeeding syndrome -Phosphorus and magnesium are within normal limits -Consult dietitian MRDD/bipolar disorder -Per family patient with severe psychiatric disturbances -Continue home psychiatric medications -Ammonia level was within normal limits -Would recommend follow-up as an outpatient for reevaluation of his antipsychotics given his thrombocytopenia Chronic constipation -Continue home stool softeners -We will initiate lactulose 10 mg daily for now Recent COVID-19 infection -Patient had resolved and was doing well since being diagnosed with this in November DVT prophylaxis -Heparin -SCDs CODE STATUS -DNR CCA as per discussion with family in the emergency department Charges/Coding Visit Charges Inpatient E&M: 52083 Subs Hosp L2
--- NOTE | 2021-04-07 13:01 | OP.CCLET_ITS ---
11/06/2021 Carlo Wellington Re : Upper GI endoscopy procedure for Ghanshyam Pedraza Dear Eliz This procedure was performed on Wednesday, April 07, 2021. My impressions and recommendations are as follows: Impressions : - LA Grade A reflux esophagitis. Biopsied. - Gastritis. Biopsied. - Erythematous duodenopathy. Biopsied. 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 - Await pathology results. My findings are described in the full procedure note, which is enclosed. If I can be of further assistance, please feel free to contact me at . Sincerely, Bon Friend, 04/07/2021 1:00:31 PM This report has been signed electronically.
--- NOTE | 2021-04-07 13:01 | OP.EGD_ITS ---
Patient Name: Ghanshyam Pedraza Procedure Date: 04/07/2021 12:17 PM Date of : 1980 Age: 40 Procedure: Upper GI endoscopy Indications: Epigastric abdominal pain Providers: Bon Mallory DO Medicines: See the Anesthesia note for documentation of the administered medications Patient Profile: This is a 40 year old male. Refer to note in patient chart for documentation of history and physical. Patient has symptoms. Complications: No immediate complications. Procedure: Pre-Anesthesia Assessment: - Prior to the procedure, a History and Physical was performed, and patient medications and allergies were reviewed. The patient is competent. The risks and benefits of the procedure and the sedation options and risks were discussed with the patient. All questions were answered and informed consent was obtained. Patient identification and proposed procedure were verified by the physician in the pre-procedure area. Mental Status Examination: alert and oriented. Airway Examination: normal oropharyngeal airway and neck mobility. Respiratory Examination: clear to auscultation. CV Examination: normal. Prophylactic Antibiotics: The patient does not require prophylactic antibiotics. Prior Anticoagulants: The patient has taken no previous anticoagulant or antiplatelet agents. ASA Grade Assessment: II - A patient with mild systemic disease. After reviewing the risks and benefits, the patient was deemed in satisfactory condition to undergo the procedure. The anesthesia plan was to use moderate sedation / analgesia (conscious sedation). Immediately prior to administration of medications, the patient was re-assessed for adequacy to receive sedatives. The heart rate, respiratory rate, oxygen saturations, blood pressure, adequacy of pulmonary ventilation, and response to care were monitored throughout the procedure. The physical status of the patient was re-assessed after the procedure. After obtaining informed consent, the endoscope was passed under direct vision. Throughout the procedure, the patient's blood pressure, pulse, and oxygen saturations were monitored continuously. The gastroscope was introduced through the mouth, and advanced to the second part of duodenum. The upper GI endoscopy was accomplished without difficulty. The patient tolerated the procedure well. Moderate Sedation: Moderate (conscious) sedation was administered by the endoscopy nurse and supervised by the endoscopist. The patient's oxygen saturation, heart rate, blood pressure and response to care were monitored. Total physician intraservice time was 15 minutes. Scope In: 12:32:02 PM Scope Out: 12:37:36 PM Total Procedure Duration Time 0 hours 5 minutes 34 seconds Findings: LA Grade A (one or more mucosal breaks less than 5 mm, not extending between tops of 2 mucosal folds) esophagitis with no bleeding was found 34 to 35 cm from the incisors. Biopsies were taken with a cold forceps for histology. Verification of patient identification for the specimen was done. Estimated blood loss was minimal. Diffuse severe inflammation characterized by congestion (edema), erythema, friability and confluent ulcerations was found in the entire examined stomach. Biopsies were taken with a cold forceps for histology. Verification of patient identification for the specimen was done. Estimated blood loss was minimal. Patchy mildly erythematous mucosa without active bleeding and with no stigmata of bleeding was found in the duodenal bulb and in the first portion of the duodenum. This was biopsied with a cold forceps for histology. Verification of patient identification for the specimen was done. Impression: - LA Grade A reflux esophagitis. Biopsied. - Gastritis. Biopsied. - Erythematous duodenopathy. Biopsied. 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 - Await pathology results. Procedure Code(s): --- Professional --- 85381, Esophagogastroduodenoscopy, flexible, transoral; with biopsy, single or multiple 36058, 59, Moderate sedation services provided by the same physician or other qualified health child care performing the diagnostic or therapeutic service that the sedation supports, requiring the presence of an independent trained observer to assist in the monitoring of the patient's level of consciousness and physiological status; initial 15 minutes of intraservice time, patient age 5 years or older CPT copyright 2017 [employer]. All rights reserved. The codes documented in this report are preliminary and upon retail assistant store manager review may be revised to meet current compliance requirements. Bon Mallory DO 04/07/2021 1:00:31 PM This report has been signed electronically. Number of Addenda: 1 Note Initiated On: 04/07/2021 12:17 PM Addendum Number: 1 Addendum Date: 11/06/2021 6:42:25 AM MAC was used for sedation during this procedure. Bon Mallory DO 11/06/2021 6:42:29 AM This report has been signed electronically.
--- NOTE | 2021-04-07 13:56 | NURSING ---
1315 pt returned to unit from egd
[2021-04-07] MEDS: Azithromycin 250 MG Tablet 500 MG PO (15:16)
[2021-04-07] MEDS: 0.9% Saline Lock 10 ML Syringe IV ×2 (15:16→21:47)
[2021-04-07] MEDS: Divalproex Sodium 250 MG Tablet 500 MG PO ×2 (15:18→21:31)
[2021-04-07] MEDS: Metoclopramide 10 MG/2 ML Vial 5 MG IV (21:33)
[2021-04-07] MEDS: Pantoprazole Sodium 40 MG Tablet PO (21:33)
[2021-04-08] VITALS (9 sets, daily range): BP systolic 116–136; BP diastolic 91–100; PULSE 73–83; RESP 16–18; TEMP 36.3–36.7; O2SAT 94–99
[2021-04-08] MEDS: Lactated Ringers 1,000 ML 70 ML IV ×2 (04:26→18:09)
--- NOTE | 2021-04-08 05:55 | EKG12_ITS ---
Test Reason : AM EKG Blood Pressure : / mmHG Vent. Rate : 074 BPM Atrial Rate : 074 BPM P-R Int : 152 ms QRS Dur : 110 ms QT Int : 396 ms P-R-T Axes : 062 069 023 degrees QTc Int : 439 ms Normal sinus rhythm Normal ECG Confirmed by EDUARD MORALES, DC ([id number]), general expeditor PA MARTINEZ ([id number]) on 04/12/2021 8:14:24 AM Referred By: JADA Confirmed By:DC CHAPA MD
[2021-04-08] MEDS: Metoclopramide 10 MG/2 ML Vial 5 MG IV ×3 (06:09→20:50)
[2021-04-08 06:19] LABS: Absolute Lymphocyte Count 1.35 X10^3/uL (0.83-4.51); Absolute Neutrophil Count 1.7 X10^3/uL (2.0-7.7); Basophil# 0.01 X10^3/uL; Basophil% 0.3 % (0-1); Eosinophil# 0.17 X10^3/uL; Eosinophils% 4.5 % (0-5); Hematocrit 34.7 % (40-54); Hemoglobin 11.5 g/dL (13.0-16.5); Lymphocyte # 1.35 X10^3/ul (0.83-4.51); Mean Corp Hgb Conc 33.1 g/dL (32-36); Mean Corpuscular Hgb 29.1 pg (27.0-32.0); Mean Corpuscular Volume 87.8 fL (80-94); Mean Platelet Vol. 10.7 fl (6.2-12.0); Monocyte# 0.49 X10^3/uL; Monocyte% 13.1 % (0-10); NRBC Flagged by Analyzer 0 % (0-5); Neutrophil # 1.72 X10^3/uL (2.7-7.7); Neutrophil % 45.8 % (47-70); POSITIVE COUNT YES; Platelet Count 69 K/mm3 (150-450); RBC Distribution Width CV 14.8 % (11.6-14.6); Red Blood Count 3.95 M/mm3 (4.6-6.2); White Blood Count 3.8 K/mm3 (4.4-11.0)
[2021-04-08 06:50] LABS: Anion Gap 3 (5-15); BUN 22 mg/dL (7-18); BUN/Creat Ratio 13.9 RATIO (10-20); Calcium,Total 12.2 mg/dL (8.5-10.1); Chloride 105 mmol/L (98-107); Creatinine, Serum 1.58 mg/dL (0.70-1.30); EST Glomerular Filtration Rate 52 mL/min (>60); Est Glom Filt Rate - Afr Amer 63 mL/min (>60); Glucose 66 mg/dL (74-106); Potassium 3.6 mmol/L (3.5-5.1); Sodium Level 142 mmol/L (136-145)
[2021-04-08 07:36] LABS: Bedside Glucose 94 mg/dL (70-110)
[2021-04-08] MEDS: clonazePAM 0.5 MG Tablet PO ×2 (09:52→16:51)
[2021-04-08] MEDS: Tolterodine Tartrate 2 MG CAP.SA PO (09:53)
[2021-04-08] MEDS: CLOZAPINE 50 MG PO (09:53)
[2021-04-08] MEDS: Lactulose 20 GM/30 ML UDC 10 GM PO (09:54)
[2021-04-08] MEDS: Senna/Docusate Sodium 1 Tablet PO ×2 (09:54→20:51)
[2021-04-08] MEDS: Pantoprazole Sodium 40 MG Tablet PO ×2 (09:54→20:50)
[2021-04-08] MEDS: Azithromycin 250 MG Tablet 500 MG PO (09:54)
[2021-04-08] MEDS: QUEtiapine 25 MG Tablet PO ×2 (09:54→20:48)
[2021-04-08] MEDS: Divalproex Sodium 250 MG Tablet PO (09:55)
[2021-04-08] MEDS: busPIRone 15 MG TABLET PO ×3 (09:55→20:46)
[2021-04-08] MEDS: Heparin Injection (Vial) 5,000 UNIT/ML VIAL 5000 UNIT SC ×2 (11:05→20:50)
[2021-04-08] MEDS: Mag Hydrox/Al Hydrox/Simeth 30 ML UDC PO (13:01)
--- NOTE | 2021-04-08 13:41 | PCM.PN.HOSP ---
Subjective Subjective No significant issues overnight. Patient was able to tolerate diet to a limited quantity last evening in the form of Jell-O and some pumpkin pie. No aversion nausea or vomiting following. Objective Data Objective Data Vital Signs: Vital Signs Temp Pulse Resp BP Pulse Ox 98.0 F 83 16 126/91 H 96 04/08/21 09:45 04/08/21 09:45 04/08/21 09:45 04/08/21 09:45 04/08/21 09:45 Oxygen Delivery Method Room Air Weight: 78.154 kg Body Mass Index (BMI) 23.3 Intake & Output: Intake and Output for Last 24 Hours 04/06/21 04/07/21 04/08/21 23:59 23:59 23:59 Intake Total 1999 2410 / 2410 1909.33 / 1909.33 Output Total 1000 / 1000 850 / 850 Balance 1999 1410 / 1410 1059.33 / 1059.33 Medical Nutrition Assessment Dietitian: Malnutrition Criteria Met Start: 04/07/21 12:37 Freq: Status: Active Protocol: Document 04/07/21 12:37 SLA (Rec: 04/07/21 12:37 SLA [id number]) Nutrition Malnutrition Evidence of Malnutrition Exists Yes Evidenced By Suboptimal Energy Intake ( Severe),Weight Loss (Severe) Clinical Problem Acute Disease or Injury Related Malnutrition Etiology related to acute illness (on going n/v) making it difficult for pt to consume adequate nutrition to meet est nutritional needs Signs/Symptoms as evidenced by 13.9% wt loss and <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 Problem Recommendation Dietitian Recommendations/Changes As medically able, rec MELANI to regular As medically able, ensure compact 4x/day w/ medpass Lab / Micro Data Result Diagrams: 04/08/21 05:22 04/08/21 05:22 Labs: Laboratory Results - last 24 hr 04/08/21 05:22: WBC 3.8 L, RBC 3.95 L, Hgb 11.5 L, Hct 34.7 L, MCV 87.8, MCH 29.1, MCHC 33.1, RDW Std Deviation 48.0 H, RDW Coeff of [place] 14.8 H, Plt Count 69 L, MPV 10.7, Immature Gran % (Auto) 0.300, Neut % (Auto) 45.8 L, Lymph % (Auto) 36.0, [place] % (Auto) 13.1 H, Eos % (Auto) 4.5, Baso % (Auto) 0.3, Absolute Neuts (auto) 1.7 L, Absolute Lymphs (auto) 1.35, Nucleated RBC % 0 04/08/21 05:22: Sodium 142, Potassium 3.6, Chloride 105, Carbon Dioxide 34.0 H, Anion Gap 3 L, BUN 22 H, Creatinine 1.58 H, Estim Creat Clear Calc 68.90, Est GFR (MDRD) Af Amer 63, Est GFR (MDRD) Non-Af 52 L, BUN/Creatinine Ratio 13.9, Glucose 66 L, Calcium 12.2 H 04/08/21 07:33: POC Glucose 94 Micro: Microbiology 04/07/21 11:50 Nasal Secretion SARS-CoV-2 Antigen (Rapid) - Final Physical Exam Const alert Constitutional Narrative: Middle-aged white male who appears pale lying in bed, family, MRDD at baseline, thin Exam Limitations: other limitations Nutritional Appearance: thin HEENT normocephalic, head/scalp atraumatic, hearing grossly normal bilaterally and moist oral mucous membranes Head and Scalp: normocephalic Resp normal respiratory effort, no retractions, no use of accessory muscles and clear to auscultation bilaterally Auscultation: Negative for crackles, rales, rhonchi or wheezes Cardio regular rate, regular rhythm, S1 normal heart sound, S2 normal heart sound, no murmurs, no rub, no gallops, no clicks and no JVD GI normal to inspection, nondistended, normoactive bowel sounds, soft to palpation, non-tender and non-distended Extremity no clubbing, cyanosis or edema Extremity Narrative: Decreased lean muscle mass Peripheral Pulses: Yes pulses 2+ throughout Neuro moves all extremities and no focal motor deficits Sensorium / Orientation: awake and alert Assessment & Plan Assessment/Plan (1) Nausea & vomiting: (2) Severe malnutrition: (3) Thrombocytopenia: (4) JUNITO (acute kidney injury): (5) Dehydration: (6) Hypercalcemia: PLAN: Severe gastritis/esophagitis -EGD 04/07/2021 showed grade a reflux esophagitis/gastritis that was severe in nature pylori associated gastritis is suspected/erythematous to adenopathy and severe delayed gastric emptying--> biopsies taken and are pending -Reglan 5 mg 3 times daily for 7 days initiated--> EKG assessed for QTC as patient is on other QTC prolonging agents -QTC remains less than 500 -Azithromycin 500 mg twice daily x5 days -We will continue Protonix but convert to oral 40 mg p.o. twice daily -Diet initiated -Gastroenterology is following -If patient does well with p.o. intake today suspect we may be able to discharge home tomorrow and follow-up as an outpatient with gastroenterology Acute kidney injury secondary to dehydration -Baseline serum creatinine appears to be 0.5-0.8 -2.04 on admission -Down to 1.66 today -Patient was given 2 L of IV fluids in the emergency department -Continue IV fluids on the floor with LR at 75 cc/h -No need for further work-up at this time with improvement -Avoid nephrotoxins as able Hypercalcemia -Still remains elevated despite improving hydration status -Currently 12.2 -We will check intact PTH and vitamin D level -Would not be surprised if patient is vitamin D deficient Pancytopenia -Secondary to suspected medication toxicity -Recommend outpatient follow-up for psychiatric medications -I also be related to his nutritional status Severe malnutrition -Significant weight loss in the past 2 months -Oral diet initiated and tolerating well so far -Supplements added -We will check electrolytes including magnesium and phosphorus in a.m. for signs of refeeding -Dietitian is following MRDD/bipolar disorder -Per family patient with severe psychiatric disturbances -Continue home psychiatric medications -Ammonia level was within normal limits -Would recommend follow-up as an outpatient for reevaluation of his antipsychotics given his thrombocytopenia Chronic constipation -Continue home stool softeners -Continue lactulose Recent COVID-19 infection -Patient had resolved and was doing well since being diagnosed with this in November DVT prophylaxis -Heparin -SCDs CODE STATUS -DNR CCA as per discussion with family in the emergency department Charges/Coding Visit Charges Inpatient E&M: 57619 Subs Hosp L2
[2021-04-08] MEDS: Divalproex Sodium 250 MG Tablet 500 MG PO ×2 (16:52→20:46)
--- NOTE | 2021-04-08 20:02 | PCM.PROGNOTE ---
Subjective Subjective Patient is eating a lot better today. He has had no episodes of nausea and vomiting. He also had a good bowel movement today. This is a very good sign. Objective Data Objective Data Vital Signs: Vital Signs Temp Pulse Resp BP Pulse Ox 97.6 F L 76 18 136/99 H 95 04/08/21 14:45 04/08/21 17:31 04/08/21 14:45 04/08/21 14:45 04/08/21 14:45 Oxygen Delivery Method Room Air Weight: 172 lb 4.8 oz Body Mass Index (BMI) 23.3 Intake & Output: Intake and Output for Last 24 Hours 04/06/21 04/07/21 04/08/21 23:59 23:59 23:59 Intake Total 1999 2410 / 2410 3569.50 / 3569.50 Output Total 1000 / 1000 1250 / 1250 Balance 1999 1410 / 1410 2319.50 / 2319.50 Medical Nutrition Assessment Dietitian: Malnutrition Criteria Met Start: 04/07/21 12:37 Freq: Status: Active Protocol: Document 04/07/21 12:37 SLA (Rec: 04/07/21 12:37 SLA [id number]) Nutrition Malnutrition Evidence of Malnutrition Exists Yes Evidenced By Suboptimal Energy Intake ( Severe),Weight Loss (Severe) Clinical Problem Acute Disease or Injury Related Malnutrition Etiology related to acute illness (on going n/v) making it difficult for pt to consume adequate nutrition to meet est nutritional needs Signs/Symptoms as evidenced by 13.9% wt loss and <75% of usual po intake x 6-8 wks improvement rn. Status Active Problem Recommendation Dietitian Recommendations/Changes As medically able, rec MELANI to regular As medically able, ensure compact 4x/day w/ medpass Lab / Micro Data Result Diagrams: 04/08/21 05:22 04/08/21 05:22 Labs: Laboratory Results - last 24 hr 04/08/21 05:22: WBC 3.8 L, RBC 3.95 L, Hgb 11.5 L, Hct 34.7 L, MCV 87.8, MCH 29.1, MCHC 33.1, RDW Std Deviation 48.0 H, RDW Coeff of [place] 14.8 H, Plt Count 69 L, MPV 10.7, Immature Gran % (Auto) 0.300, Neut % (Auto) 45.8 L, Lymph % (Auto) 36.0, [place] % (Auto) 13.1 H, Eos % (Auto) 4.5, Baso % (Auto) 0.3, Absolute Neuts (auto) 1.7 L, Absolute Lymphs (auto) 1.35, Nucleated RBC % 0 04/08/21 05:22: Sodium 142, Potassium 3.6, Chloride 105, Carbon Dioxide 34.0 H, Anion Gap 3 L, BUN 22 H, Creatinine 1.58 H, Estim Creat Clear Calc 68.90, Est GFR (MDRD) Af Amer 63, Est GFR (MDRD) Non-Af 52 L, BUN/Creatinine Ratio 13.9, Glucose 66 L, Calcium 12.2 H 04/08/21 07:33: POC Glucose 94 Micro: Microbiology 04/07/21 11:50 Nasal Secretion SARS-CoV-2 Antigen (Rapid) - Final Physical Exam Const alert General Appearance: cooperative Orientation / Consciousness: oriented to person HEENT hearing grossly normal bilaterally Head and Scalp: normal to inspection Face and Sinus: face symmetric Nose: external nose normal Mouth: oral and palatal mucosa normal Eyes conjunctivae normal General Eye: normal appearance of both eyes Neck full ROM General: normal visual inspection Lymph Lymphatic: no lymphadenopathy noted Chest inspection of chest normal and palpation of chest normal Chest: symmetrical chest wall rise Resp normal respiratory effort Effort and Inspection: able to speak in complete sentences Cardio regular rate GI non-distended Percussion: normal to percussion Rectal Exam: deferred Neuro Speech: speech normal Gait (Neuro): normal gait Assessment & Plan Assessment/Plan (1) Severe malnutrition: PLAN: For malnutrition with rapid weight loss secondary to severe gastritis possibly secondary to H. pylori versus severe gastroparesis. (2) Nausea & vomiting: PLAN: Patient is on Reglan therapy and azithromycin to increase gastric emptying and to stimulate the migratory motilin complex in the small intestines. Hopefully this will continue afterwards. After he is off of the azithromycin he will need a scopolamine patch or rectal Compazine therapy for his nausea if the H. pylori is is normal. (3) Thrombocytopenia: PLAN: Thrombocytopenia thought to be secondary to poor nutrition. Charges/Coding Visit Charges Inpatient E&M: 87534 Subs Hosp L3
[2021-04-08] MEDS: Sucralfate 1 GM Tablet PO (20:47)
[2021-04-09] VITALS (7 sets, daily range): BP systolic 107–138; BP diastolic 75–99; PULSE 66–93; RESP 16–20; TEMP 36.3–36.8; O2SAT 94–96
[2021-04-09] MEDS: Metoclopramide 10 MG/2 ML Vial 5 MG IV ×2 (04:22→14:36)
[2021-04-09 06:40] LABS: Absolute Lymphocyte Count 1.67 X10^3/uL (0.83-4.51); Absolute Neutrophil Count 2.6 X10^3/uL (2.0-7.7); Basophil# 0.02 X10^3/uL; Basophil% 0.4 % (0-1); Eosinophils% 3.8 % (0-5); Hematocrit 33.7 % (40-54); Hemoglobin 11.3 g/dL (13.0-16.5); Lymphocyte # 1.67 X10^3/ul (0.83-4.51); Lymphocyte % 31.9 % (19-41); Mean Corp Hgb Conc 33.5 g/dL (32-36); Mean Corpuscular Hgb 28.9 pg (27.0-32.0); Mean Corpuscular Volume 86.2 fL (80-94); Mean Platelet Vol. 9.8 fl (6.2-12.0); Monocyte# 0.73 X10^3/uL; NRBC Flagged by Analyzer 0 % (0-5); Neutrophil # 2.59 X10^3/uL (2.7-7.7); Neutrophil % 49.5 % (47-70); POSITIVE COUNT YES; Platelet Count 75 K/mm3 (150-450); RBC Distribution Width CV 14.9 % (11.6-14.6); RBC Distribution Width SD 47.1 fl (35.1-43.9); Red Blood Count 3.91 M/mm3 (4.6-6.2); White Blood Count 5.2 K/mm3 (4.4-11.0)
[2021-04-09 07:22] LABS: ALB/GLOB Ratio 0.6 RATIO (0.9-2.4); AST(SGOT) 14 U/L (15-37); Alanine Aminotransfer ALT/SGPT 11 U/L (16-61); Albumin, Serum 2.5 g/dL (3.2-5.0); Alkaline Phosphatase 55 U/L (45-117); Anion Gap 4 (5-15); BUN 18 mg/dL (7-18); BUN/Creat Ratio 12.7 RATIO (10-20); Calcium,Total 11.9 mg/dL (8.5-10.1); Chloride 101 mmol/L (98-107); Creatinine, Serum 1.42 mg/dL (0.70-1.30); EST Glomerular Filtration Rate 59 mL/min (>60); Est Glom Filt Rate - Afr Amer 71 mL/min (>60); Estimated Creatinine Clearance 76.66 ml/min; Globulin 4.1 g/dL (2.2-4.2); Glucose 102 mg/dL (74-106); Magnesium 2.7 mg/dL (1.6-2.6); Phosphorus 2.6 mg/dL (2.5-4.9); Potassium 3.4 mmol/L (3.5-5.1); Protein, Total 6.6 g/dL (6.4-8.2); Sodium Level 139 mmol/L (136-145)
[2021-04-09] MEDS: Azithromycin 250 MG Tablet 500 MG PO (08:36)
[2021-04-09] MEDS: Pantoprazole Sodium 40 MG Tablet PO ×2 (08:36→17:39)
[2021-04-09] MEDS: Tolterodine Tartrate 2 MG CAP.SA PO (08:36)
[2021-04-09] MEDS: QUEtiapine 25 MG Tablet PO (08:36)
[2021-04-09] MEDS: Divalproex Sodium 250 MG Tablet PO (08:36)
[2021-04-09] MEDS: busPIRone 15 MG TABLET PO ×2 (08:36→17:03)
[2021-04-09] MEDS: clonazePAM 0.5 MG Tablet PO ×2 (08:36→17:02)
[2021-04-09] MEDS: Sucralfate 1 GM Tablet PO ×3 (08:36→17:04)
[2021-04-09] MEDS: Potassium Chloride Oral Tablet 20 MEQ 40 MEQ PO (08:36)
[2021-04-09] MEDS: CLOZAPINE 50 MG PO (08:37)
[2021-04-09] MEDS: Heparin Injection (Vial) 5,000 UNIT/ML VIAL 5000 UNIT SC (08:38)
--- NOTE | 2021-04-09 10:35 | PCM.DC.SUM ---
Providers Date of Admission: 04/06/21 Primary Care Physician: Dr. Carlo Wellington, Consultations 04/06/21 16:47 Consult: Gastroenterology Routine Consulting Provider: [facility] Reason for Consult: Nausea and vomiting EMERGENT Consult: No MD Notified: Yes Date Notified: 04/06/21 Time Notified: 16:19 Method of Notification: Verbal Reason For Visit: JUNITO Diagnosis Discharge Diagnosis (1) Severe malnutrition: Status: Acute Code(s): E43 - Unspecified severe protein-calorie malnutrition (2) Nausea & vomiting: Status: Acute Code(s): R11.2 - Nausea with vomiting, unspecified (3) Thrombocytopenia: Status: Acute Code(s): D69.6 - Thrombocytopenia, unspecified Medications at Discharge Home Medications buspirone 15 mg PO TID 04/18/18 clozapine 50 mg PO DAILY 04/18/18 clozapine 100 mg PO QHS 04/18/18 divalproex 500 mg PO BID 04/18/18 divalproex 250 mg PO BREAKFAST 07/17/18 Briefs #10 ea 12/05/20 sennosides-docusate sodium [Stool Softener-Stimulant Laxat] 1 tab PO BID #0 tab 12/05/20 clonazepam 0.5 mg PO BID 04/06/21 oxybutynin chloride 10 mg PO DAILY 04/06/21 quetiapine [Seroquel] 25 mg PO BID 04/06/21 azithromycin 500 mg PO BID 5 Days #10 tab 04/09/21 ergocalciferol (vitamin D2) 1,250 mcg PO QWEEK #6 cap 04/09/21 metoclopramide HCl [Reglan] 5 mg PO TID 7 Days #21 tab 04/09/21 pantoprazole 40 mg PO BID #60 tab 04/09/21 sucralfate 1 g PO TID #90 tab 04/09/21 Hospital Course Operations None Procedures EGD Summary of Care Provided Minutes Spent on Discharge: 39 Hospital Course: Ghanshyam Pedraza is a 40-year-old white male who presented to the emergency department at [facility] on April 06, 2021 with his siblings. The patient has MRDD and severe behavioral orders at baseline. On admission the family indicated he had COVID-19 in November 2020 which she had recovered from well after a period of time. They stated that he was back to his baseline but about 6 to 8 weeks ago he started having issues with nausea and vomiting and food aversion. He had lost 20 to 30 pounds in that period of time and had not been eating regularly. At baseline he has chronic constipation but this has not been a significant issue for him. They denied any hematemesis on admission but indicated he was not regularly keeping his food down. On admission his vital signs were unremarkable. His CBC showed a normal white count with a mild anemia and a thrombocytopenia which appear to be chronic. He appeared markedly dehydrated with a serum bicarb of 36 a BUN of 24 and a serum creatinine of 2.04. His calcium was markedly elevated at 13. His LFTs were normal. His lipase was 16. His UA was unremarkable for infection. A CT of his abdomen pelvis was done prior to admission and showed only constipation. He was treated initially with fluid resuscitation and request for admission was made. He was admitted to the medical floor and gastroenterology was consulted for an EGD. An EGD was done on April 07, 2021 that showed grade a reflux esophagitis, severe gastritis that was suspected to be associated with H. pylori, erythematous to adenopathy and severely delayed gastric emptying. Biopsies were taken and are pending upon discharge. Recommendations from gastroenterology were to initiate Reglan 5 mg 3 times daily for 7 days, azithromycin 500 mg p.o. twice daily x5 days, Protonix 40 mg p.o. twice daily, and Carafate. Despite adequate IV hydration and improvement in his serum creatinine to 1.42 on the day of discharge, his calcium remained elevated and intact PTH and a vitamin D level were pending upon discharge. I highly suspect that he is vitamin D deficient and have therefore ordered ergocalciferol 50,000 units weekly for 6 weeks and recommend a follow-up vitamin D level and calcium level be obtained at that time as long as his intact PTH is appropriately suppressed. After the initiation of his medication he was able to take p.o. without any difficulties and his oral intake improved dramatically. We have recommended as needed Mylanta for any discomfort he may experience at home and this was discussed with his brother prior to discharge. He is to follow-up with his primary care physician in 3 to [address] Mallory from gastroenterology within 2 weeks. I have instructed family to call on Saturday to make appointment with Dr. Mallory. Discharge diagnoses: Severe gastritis Reflux esophagitis Gastroparesis Acute kidney injury secondary to dehydration-resolving Hypercalcemia-suspect related to vitamin D deficiency--> work-up in progress and lab pending on discharge Pancytopenia Severe malnutrition MRDD Bipolar disorder Chronic constipation Recent COVID-19 infection Physical Exam Const alert and no apparent distress Constitutional Narrative: Thin, patient with baseline MRDD and is awake and alert and follows commands, very simple with responsive and somewhat inconsistent, brother is at bedside General Appearance: cooperative, comfortable and well kempt Orientation / Consciousness: awake Exam Limitations: other limitations Nutritional Appearance: thin HEENT normocephalic, head/scalp atraumatic, hearing grossly normal bilaterally and moist oral mucous membranes Eyes PERRL, EOMs intact bilaterally and conjunctivae normal Eyes Narrative: No scleral icterus Neck no lymphadenopathy, supple and no JVD Neck Narrative: Trachea midline, no thyroid enlargement Resp normal respiratory effort, no retractions, no use of accessory muscles and clear to auscultation bilaterally Auscultation: Negative for crackles, rales, rhonchi or wheezes Cardio regular rate, regular rhythm, S1 normal heart sound, S2 normal heart sound, no murmurs, no rub, no gallops, no clicks and no JVD GI normal to inspection, nondistended, normoactive bowel sounds, soft to palpation, non-tender and non-distended Extremity no clubbing, cyanosis or edema Skin no rashes or lesions noted, no wounds, skin turgor normal, no jaundice, no petechiae and no mottling Neuro CN's II-XII intact bilaterally, moves all extremities and no focal motor deficits Neuro Narrative: Generalized weakness, speech is slow and deliberate, follows commands Sensorium / Orientation: awake and alert Psych Psych Narrative: Affect is flat Medical Records Data Medical Nutrition Assessment Dietitian: Malnutrition Criteria Met Start: 04/07/21 12:37 Freq: Status: Active Protocol: Document 04/07/21 12:37 CHERIE (Rec: 04/07/21 12:37 CHERIE [id number]) Nutrition Malnutrition Evidence of Malnutrition Exists Yes Evidenced By Suboptimal Energy Intake ( Severe),Weight Loss (Severe) Clinical Problem Acute Disease or Injury Related Malnutrition Etiology related to acute illness (on going n/v) making it difficult for pt to consume adequate nutrition to meet est nutritional needs Signs/Symptoms as evidenced by 13.9% wt loss and <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0 H, Eos % (Auto) 3.8, Baso % (Auto) 0.4, Absolute Neuts (auto) 2.6, Absolute Lymphs (auto) 1.67, Nucleated RBC % 0 04/09/21 05:55: Sodium 139, Potassium 3.4 L, Chloride 101, Carbon Dioxide 34.0 H, Anion Gap 4 L, BUN 18, Creatinine 1.42 H, Estim Creat Clear Calc 76.66, Est GFR (MDRD) Af Amer 71, Est GFR (MDRD) Non-Af 59 L, BUN/Creatinine Ratio 12.7, Glucose 102, Calcium 11.9 H, Phosphorus 2.6, Magnesium 2.7 H, Total Bilirubin 0.20, AST 14 L, ALT 11 L, Alkaline Phosphatase 55, Total Protein 6.6, Albumin 2.5 L, Globulin 4.1, Albumin/Globulin Ratio 0.6 L Microbiology: Microbiology 04/07/21 11:50 Nasal Secretion SARS-CoV-2 Antigen (Rapid) - Final D/C Instructions Discharge Diet: No restrictions and [place] diet Discharge Activity: Return to Normal Activity Meaningful Use Info Meaningful Use Diagnoses (Choose all that apply): None applicable Discharge Plan Admission Admit Date/Time: 04/06/21 16:04 Primary Reason for Your Visit: Decreased oral intake and weight loss Attending Provider: Caryn Pope Primary Care Provider: Carlo Wellington Instructions Additional Instructions / Restrictions: 1. please call Dr. Mallory's office on Saturday and make appt as directed below 2. please see PCP in 1 weeks as noted below Discharge Orders/Prescriptions Prescriptions: New sucralfate 1 gram Tablet 1 g PO TID Qty: 90 RF: 0 pantoprazole 40 mg Tablet,Delayed Release (Dr/Ec) 40 mg PO BID Qty: 60 RF: 1 metoclopramide HCl [Reglan] 5 mg tablet 5 mg PO TID 7 Days Qty: 21 RF: 0 ergocalciferol (vitamin D2) 1,250 mcg (50,000 unit) capsule 1,250 mcg PO QWEEK Qty: 6 RF: 0 azithromycin 500 mg tablet 500 mg PO BID 5 Days Qty: 10 RF: 0 Continued clozapine 100 MG tablet 100 mg PO QHS RF: 0 divalproex 500 MG tablet,delayed release (DR/EC) 500 mg PO BID RF: 0 buspirone 15 MG tablet 15 mg PO TID RF: 0 clozapine 50 MG tablet 50 mg PO DAILY RF: 0 divalproex 250 MG tablet 250 mg PO BREAKFAST RF: 0 sennosides-docusate sodium [Stool Softener-Stimulant Laxat] 8.6-50 mg Tablet 1 tab PO BID Qty: 0 RF: 0 (DME) Briefs Misc See Rx Instructions .ROUTE .MEDSUPPLY Qty: 10 RF: 12 oxybutynin chloride 10 mg tablet extended release 24hr 10 mg PO DAILY RF: 0 clonazepam 0.5 mg tablet 0.5 mg PO BID RF: 0 quetiapine [Seroquel] 25 mg tablet 25 mg PO BID RF: 0 Referrals / Follow Up: Carlo Wellington DO [Primary Care Provider] - 3-5 Days Bon Mallory DO [STAFF PHYSICIAN] - Within 2 Weeks (Hospital follow up) Disposition Disposition (needs filled in before D/C Order can be placed): Home, Self Care Charges/Coding Visit Charges Inpatient E&M: 04589 Disch Hosp
[2021-04-09] MEDS: Divalproex Sodium 250 MG Tablet 500 MG PO (17:04)
[2021-04-10 12:56] LABS: Vitamin D,25 Hydroxy > 150.0 ng/mL (29.95-100.01)
[2021-04-10 12:57] LABS: PTHIN < 6.3 pg/mL (18.4-80.1)
== END 2021-04-09 17:50 | disposition home or self-care (01) | DRG 254 ==
LOC: ED 15:54 → MS3 16:44
PROVIDERS: Internal Medicine Gastroenterology; Physician Assistant; Admitting Provider Internal Medicine; Emergency Provider Emergency Medicine; PCP Family Medicine; Visit Provider Internal Medicine
PROC: 0DJ08ZZ Inspection of Upper Intestinal Tract, Via Natural or Artificial Opening Endoscopic (ICD-10-PCS; CPT 43235; principal; 2021-04-07 17:55)
DX: K31.84 Gastroparesis (principal); E43 Unspecified severe protein-calorie malnutrition; D61.811 Other drug-induced pancytopenia; N17.9 Acute kidney failure, unspecified; E86.0 Dehydration; F31.9 Bipolar disorder, unspecified; K29.70 Gastritis, unspecified, without bleeding; E83.52 Hypercalcemia; E55.9 Vitamin D deficiency, unspecified; K59.09 Other constipation; K31.89 Other diseases of stomach and duodenum; K21.00 Gastro-esophageal reflux disease with esophagitis, without bleeding; T50.995A Adverse effect of other drugs, medicaments and biological substances, initial encounter; F79 Unspecified intellectual disabilities; R63.0 Anorexia; R10.13 Epigastric pain; Z66 Do not resuscitate; Z68.23 Body mass index [BMI] 23.0-23.9, adult; Z79.899 Other long term (current) drug therapy; Z86.16 Personal history of COVID-19
CPT/HCPCS: 36415; 74177; 80048; 80053; 80164; 81001; 82140; 82306; 82962; 83690; 83735; 83970; 84100; 84439; 84443; 85025; 86140; 87426; 88305; 88313; 88342; 93005; 97162; 97166; 97530; 97535; 97802; 99251; 99285; J7120; Q9967; A4216; G0463; J2405

== ENCOUNTER 2021-05-11 14:01 | Outpatient (RCR) | payer MEDICAID, SELFPAY ==
[2021-04-18 09:49] VITALS: BMI 27.1
[2021-04-19 15:24] LABS: Absolute Lymphocyte Count 1.86 X10^3/uL (0.83-4.51); Absolute Neutrophil Count 2.9 X10^3/uL (2.0-7.7); Basophil# 0.03 X10^3/uL; Basophil% 0.5 % (0-1); Eosinophil# 0.04 X10^3/uL; Eosinophils% 0.7 % (0-5); Hematocrit 32.9 % (40-54); Hemoglobin 10.7 g/dL (13.0-16.5); Lymphocyte # 1.86 X10^3/ul (0.83-4.51); Mean Corp Hgb Conc 32.5 g/dL (32-36); Mean Corpuscular Hgb 28.8 pg (27.0-32.0); Mean Corpuscular Volume 88.7 fL (80-94); Mean Platelet Vol. 9.5 fl (6.2-12.0); Monocyte# 0.78 X10^3/uL; Monocyte% 13.8 % (0-10); NRBC Flagged by Analyzer 0 % (0-5); Neutrophil % 51.5 % (47-70); Platelet Count 143 K/mm3 (150-450); RBC Distribution Width CV 16.5 % (11.6-14.6); RBC Distribution Width SD 53.1 fl (35.1-43.9); Red Blood Count 3.71 M/mm3 (4.6-6.2); White Blood Count 5.6 K/mm3 (4.4-11.0)
[2021-04-26 09:45] LABS: Absolute Lymphocyte Count 1.37 X10^3/uL (0.83-4.51); Absolute Neutrophil Count 1.7 X10^3/uL (2.0-7.7); Basophil# 0.03 X10^3/uL; Basophil% 0.9 % (0-1); Eosinophil# 0.03 X10^3/uL; Eosinophils% 0.9 % (0-5); Hematocrit 33.5 % (40-54); Hemoglobin 11.2 g/dL (13.0-16.5); Lymphocyte # 1.37 X10^3/ul (0.83-4.51); Lymphocyte % 39.6 % (19-41); Mean Corp Hgb Conc 33.4 g/dL (32-36); Mean Corpuscular Hgb 30.1 pg (27.0-32.0); Mean Corpuscular Volume 90.1 fL (80-94); Monocyte# 0.37 X10^3/uL; Monocyte% 10.7 % (0-10); NRBC Flagged by Analyzer 0 % (0-5); Neutrophil # 1.65 X10^3/uL (2.7-7.7); Neutrophil % 47.6 % (47-70); POSITIVE COUNT YES; Platelet Count 86 K/mm3 (150-450); RBC Distribution Width CV 16.1 % (11.6-14.6); Red Blood Count 3.72 M/mm3 (4.6-6.2); White Blood Count 3.5 K/mm3 (4.4-11.0)
[2021-04-26 09:46] LABS: Differential Indicated SCAN CRITERIA MET
[2021-04-26 10:03] LABS: Valproic Acid (Depakene) Level 84 ug/mL (50-100)
[2021-04-26 10:07] LABS: ALB/GLOB Ratio 0.8 RATIO (0.9-2.4); AST(SGOT) 9 U/L (15-37); Alanine Aminotransfer ALT/SGPT 9 U/L (16-61); Albumin, Serum 3.2 g/dL (3.2-5.0); Alkaline Phosphatase 43 U/L (45-117); Anion Gap 4 (5-15); BUN 15 mg/dL (7-18); BUN/Creat Ratio 10.1 RATIO (10-20); Calcium,Total 11.1 mg/dL (8.5-10.1); Chloride 107 mmol/L (98-107); Creatinine, Serum 1.49 mg/dL (0.70-1.30); EST Glomerular Filtration Rate 56 mL/min (>60); Est Glom Filt Rate - Afr Amer 67 mL/min (>60); Globulin 4.2 g/dL (2.2-4.2); Glucose 78 mg/dL (74-106); Potassium 3.6 mmol/L (3.5-5.1); Protein, Total 7.4 g/dL (6.4-8.2); Sodium Level 143 mmol/L (136-145)
[2021-04-26 10:15] LABS: Platelet Estimate SLT DEC (ADEQ)
[2021-05-03 13:37] LABS: Absolute Neutrophil Count 1.3 X10^3/uL (2.0-7.7); Basophil# 0.01 X10^3/uL; Basophil% 0.3 % (0-1); Eosinophil# 0.05 X10^3/uL; Eosinophils% 1.4 % (0-5); Hematocrit 32.5 % (40-54); Hemoglobin 10.8 g/dL (13.0-16.5); Mean Corp Hgb Conc 33.2 g/dL (32-36); Mean Corpuscular Hgb 29.4 pg (27.0-32.0); Mean Corpuscular Volume 88.6 fL (80-94); Mean Platelet Vol. 10.5 fl (6.2-12.0); Monocyte# 0.39 X10^3/uL; NRBC Flagged by Analyzer 0 % (0-5); Neutrophil # 1.27 X10^3/uL (2.7-7.7); POSITIVE COUNT YES; Platelet Count 93 K/mm3 (150-450); RBC Distribution Width CV 16.3 % (11.6-14.6); RBC Distribution Width SD 52.9 fl (35.1-43.9); Red Blood Count 3.67 M/mm3 (4.6-6.2); White Blood Count 3.5 K/mm3 (4.4-11.0)
[2021-05-11 14:27] LABS: Absolute Lymphocyte Count 1.62 X10^3/uL (0.83-4.51); Absolute Neutrophil Count 1.1 X10^3/uL (2.0-7.7); Basophil# 0.02 X10^3/uL; Basophil% 0.6 % (0-1); Eosinophil# 0.05 X10^3/uL; Eosinophils% 1.6 % (0-5); Hematocrit 34.1 % (40-54); Hemoglobin 11.5 g/dL (13.0-16.5); Lymphocyte # 1.62 X10^3/ul (0.83-4.51); Lymphocyte % 50.8 % (19-41); Mean Corp Hgb Conc 33.7 g/dL (32-36); Mean Platelet Vol. 9.8 fl (6.2-12.0); Monocyte% 12.5 % (0-10); NRBC Flagged by Analyzer 0 % (0-5); Neutrophil # 1.08 X10^3/uL (2.7-7.7); Neutrophil % 33.9 % (47-70); POSITIVE COUNT YES; Platelet Count 83 K/mm3 (150-450); RBC Distribution Width CV 16.2 % (11.6-14.6); RBC Distribution Width SD 53.1 fl (35.1-43.9); Red Blood Count 3.83 M/mm3 (4.6-6.2); White Blood Count 3.2 K/mm3 (4.4-11.0)
== END 2021-05-18 18:00 | disposition home or self-care (01) ==
LOC: LAB 14:01
PROVIDERS: Family Provider Family Medicine; PCP Family Medicine; Referring Provider Psychiatry & Neurology Child & Adolescent Psychiatry; Visit Provider Psychiatry & Neurology Child & Adolescent Psychiatry
DX: Z79.899 Other long term (current) drug therapy (principal)
CPT/HCPCS: 36415; 80053; 80164; 85025

== ENCOUNTER 2021-06-15 10:05 | Outpatient (RCR) | payer MEDICAID, SELFPAY ==
[2021-05-19 02:39] VITALS: BMI 27.1
[2021-05-23 09:40] LABS: Absolute Neutrophil Count 1.7 X10^3/uL (2.0-7.7); Basophil# 0.01 X10^3/uL; Basophil% 0.3 % (0-1); Eosinophil# 0.06 X10^3/uL; Eosinophils% 1.6 % (0-5); Hemoglobin 11.1 g/dL (13.0-16.5); Lymphocyte % 39.3 % (19-41); Mean Corp Hgb Conc 32.6 g/dL (32-36); Mean Corpuscular Hgb 29.8 pg (27.0-32.0); Mean Corpuscular Volume 91.2 fL (80-94); Mean Platelet Vol. 9.8 fl (6.2-12.0); Monocyte# 0.53 X10^3/uL; Monocyte% 13.9 % (0-10); NRBC Flagged by Analyzer 0 % (0-5); Neutrophil % 44.4 % (47-70); Platelet Count 101 K/mm3 (150-450); RBC Distribution Width CV 16.2 % (11.6-14.6); RBC Distribution Width SD 54.2 fl (35.1-43.9); Red Blood Count 3.73 M/mm3 (4.6-6.2); White Blood Count 3.8 K/mm3 (4.4-11.0)
[2021-05-23 10:05] LABS: ALB/GLOB Ratio 0.8 RATIO (0.9-2.4); AST(SGOT) 13 U/L (15-37); Alanine Aminotransfer ALT/SGPT 12 U/L (16-61); Albumin, Serum 3.4 g/dL (3.2-5.0); Alkaline Phosphatase 42 U/L (45-117); Anion Gap 2 (5-15); BUN 20 mg/dL (7-18); BUN/Creat Ratio 19.4 RATIO (10-20); Calcium,Total 9.7 mg/dL (8.5-10.1); Chloride 104 mmol/L (98-107); Creatinine, Serum 1.03 mg/dL (0.70-1.30); EST Glomerular Filtration Rate 85 mL/min (>60); Est Glom Filt Rate - Afr Amer 103 mL/min (>60); Glucose 81 mg/dL (74-106); Potassium 3.8 mmol/L (3.5-5.1); Protein, Total 7.4 g/dL (6.4-8.2); Sodium Level 140 mmol/L (136-145)
[2021-05-23 10:12] LABS: Valproic Acid (Depakene) Level 97 ug/mL (50-100)
[2021-06-06 10:47] LABS: Absolute Lymphocyte Count 2.09 X10^3/uL (0.83-4.51); Absolute Neutrophil Count 3.1 X10^3/uL (2.0-7.7); Basophil# 0.02 X10^3/uL; Basophil% 0.3 % (0-1); Eosinophil# 0.06 X10^3/uL; Hematocrit 35.5 % (40-54); Hemoglobin 11.3 g/dL (13.0-16.5); Lymphocyte # 2.09 X10^3/ul (0.83-4.51); Lymphocyte % 34.6 % (19-41); Mean Corp Hgb Conc 31.8 g/dL (32-36); Mean Corpuscular Hgb 29.8 pg (27.0-32.0); Mean Corpuscular Volume 93.7 fL (80-94); Mean Platelet Vol. 9.5 fl (6.2-12.0); Monocyte# 0.74 X10^3/uL; Monocyte% 12.3 % (0-10); NRBC Flagged by Analyzer 0 % (0-5); Neutrophil % 51.3 % (47-70); Platelet Count 126 K/mm3 (150-450); RBC Distribution Width CV 16.1 % (11.6-14.6); RBC Distribution Width SD 55.7 fl (35.1-43.9); Red Blood Count 3.79 M/mm3 (4.6-6.2)
[2021-06-15 12:17] LABS: Absolute Lymphocyte Count 1.56 X10^3/uL (0.83-4.51); Absolute Neutrophil Count 1.8 X10^3/uL (2.0-7.7); Basophil# 0.02 X10^3/uL; Basophil% 0.5 % (0-1); Eosinophil# 0.05 X10^3/uL; Eosinophils% 1.3 % (0-5); Hematocrit 36.2 % (40-54); Hemoglobin 11.7 g/dL (13.0-16.5); Lymphocyte # 1.56 X10^3/ul (0.83-4.51); Lymphocyte % 39.7 % (19-41); Mean Corp Hgb Conc 32.3 g/dL (32-36); Mean Corpuscular Hgb 30.3 pg (27.0-32.0); Mean Corpuscular Volume 93.8 fL (80-94); Mean Platelet Vol. 10.6 fl (6.2-12.0); Monocyte% 12.7 % (0-10); NRBC Flagged by Analyzer 0 % (0-5); Neutrophil # 1.78 X10^3/uL (2.7-7.7); Neutrophil % 45.3 % (47-70); Platelet Count 117 K/mm3 (150-450); RBC Distribution Width CV 15.2 % (11.6-14.6); RBC Distribution Width SD 52.2 fl (35.1-43.9); Red Blood Count 3.86 M/mm3 (4.6-6.2); White Blood Count 3.9 K/mm3 (4.4-11.0)
== END 2021-06-15 18:00 | disposition home or self-care (01) ==
LOC: MTLAB 10:05
PROVIDERS: Family Provider Family Medicine; PCP Family Medicine; Referring Provider Psychiatry & Neurology Child & Adolescent Psychiatry; Visit Provider Psychiatry & Neurology Child & Adolescent Psychiatry
DX: Z79.899 Other long term (current) drug therapy (principal)
CPT/HCPCS: 36415; 80053; 80164; 85025

== ENCOUNTER 2021-07-13 11:01 | Outpatient (RCR) | payer MEDICAID, SELFPAY ==
[2021-06-18 05:19] VITALS: BMI 27.1
[2021-06-22 12:31] LABS: Absolute Lymphocyte Count 1.17 X10^3/uL (0.83-4.51); Absolute Neutrophil Count 1.4 X10^3/uL (2.0-7.7); Basophil# 0.02 X10^3/uL; Basophil% 0.7 % (0-1); Eosinophil# 0.03 X10^3/uL; Hematocrit 36.6 % (40-54); Hemoglobin 11.9 g/dL (13.0-16.5); Lymphocyte # 1.17 X10^3/ul (0.83-4.51); Lymphocyte % 39.3 % (19-41); Mean Corp Hgb Conc 32.5 g/dL (32-36); Mean Corpuscular Hgb 30.6 pg (27.0-32.0); Mean Corpuscular Volume 94.1 fL (80-94); Mean Platelet Vol. 9.9 fl (6.2-12.0); Monocyte# 0.41 X10^3/uL; Monocyte% 13.8 % (0-10); NRBC Flagged by Analyzer 0 % (0-5); Neutrophil # 1.35 X10^3/uL (2.7-7.7); Neutrophil % 45.2 % (47-70); Platelet Count 100 K/mm3 (150-450); RBC Distribution Width CV 14.9 % (11.6-14.6); RBC Distribution Width SD 51.8 fl (35.1-43.9); Red Blood Count 3.89 M/mm3 (4.6-6.2)
[2021-06-22 12:34] LABS: ALB/GLOB Ratio 0.8 RATIO (0.9-2.4); AST(SGOT) 18 U/L (15-37); Alanine Aminotransfer ALT/SGPT 21 U/L (16-61); Albumin, Serum 3.4 g/dL (3.2-5.0); Alkaline Phosphatase 42 U/L (45-117); Anion Gap 8 (5-15); BUN 11 mg/dL (7-18); BUN/Creat Ratio 10.1 RATIO (10-20); Chloride 106 mmol/L (98-107); Creatinine, Serum 1.09 mg/dL (0.70-1.30); EST Glomerular Filtration Rate 80 mL/min (>60); Est Glom Filt Rate - Afr Amer 96 mL/min (>60); Globulin 4.1 g/dL (2.2-4.2); Glucose 99 mg/dL (74-106); Potassium 3.7 mmol/L (3.5-5.1); Protein, Total 7.5 g/dL (6.4-8.2); Sodium Level 142 mmol/L (136-145)
[2021-06-22 12:46] LABS: Valproic Acid (Depakene) Level 129 ug/mL (50-100)
[2021-06-27 12:09] LABS: Absolute Lymphocyte Count 1.49 X10^3/uL (0.83-4.51); Absolute Neutrophil Count 2.6 X10^3/uL (2.0-7.7); Basophil# 0.02 X10^3/uL; Basophil% 0.4 % (0-1); Eosinophil# 0.04 X10^3/uL; Eosinophils% 0.8 % (0-5); Hematocrit 37.8 % (40-54); Lymphocyte # 1.49 X10^3/ul (0.83-4.51); Lymphocyte % 31.3 % (19-41); Mean Corp Hgb Conc 31.7 g/dL (32-36); Mean Corpuscular Hgb 30.2 pg (27.0-32.0); Mean Corpuscular Volume 95.2 fL (80-94); Mean Platelet Vol. 10.2 fl (6.2-12.0); Monocyte# 0.61 X10^3/uL; Monocyte% 12.8 % (0-10); NRBC Flagged by Analyzer 0 % (0-5); Neutrophil # 2.58 X10^3/uL (2.7-7.7); Neutrophil % 54.3 % (47-70); Platelet Count 107 K/mm3 (150-450); RBC Distribution Width CV 14.4 % (11.6-14.6); RBC Distribution Width SD 50.5 fl (35.1-43.9); Red Blood Count 3.97 M/mm3 (4.6-6.2); White Blood Count 4.8 K/mm3 (4.4-11.0)
[2021-07-06 10:27] LABS: Absolute Lymphocyte Count 1.15 X10^3/uL (0.83-4.51); Absolute Neutrophil Count 2.5 X10^3/uL (2.0-7.7); Basophil# 0.01 X10^3/uL; Basophil% 0.2 % (0-1); Eosinophil# 0.04 X10^3/uL; Eosinophils% 0.9 % (0-5); Hematocrit 37.7 % (40-54); Hemoglobin 12.3 g/dL (13.0-16.5); Lymphocyte # 1.15 X10^3/ul (0.83-4.51); Lymphocyte % 26.5 % (19-41); Mean Corp Hgb Conc 32.6 g/dL (32-36); Mean Corpuscular Hgb 30.4 pg (27.0-32.0); Mean Corpuscular Volume 93.1 fL (80-94); Mean Platelet Vol. 10.2 fl (6.2-12.0); Monocyte# 0.61 X10^3/uL; Monocyte% 14.1 % (0-10); NRBC Flagged by Analyzer 0 % (0-5); Neutrophil # 2.52 X10^3/uL (2.7-7.7); Neutrophil % 58.1 % (47-70); POSITIVE COUNT YES; Platelet Count 84 K/mm3 (150-450); RBC Distribution Width CV 13.5 % (11.6-14.6); RBC Distribution Width SD 46.4 fl (35.1-43.9); Red Blood Count 4.05 M/mm3 (4.6-6.2); White Blood Count 4.3 K/mm3 (4.4-11.0)
[2021-07-06 10:34] LABS: Differential Indicated SCAN CRITERIA MET
[2021-07-06 10:56] LABS: Differential Comment SCANNED
[2021-07-13 12:12] LABS: Absolute Lymphocyte Count 1.33 X10^3/uL (0.83-4.51); Absolute Neutrophil Count 3.1 X10^3/uL (2.0-7.7); Basophil# 0.01 X10^3/uL; Basophil% 0.2 % (0-1); Eosinophil# 0.03 X10^3/uL; Eosinophils% 0.6 % (0-5); Hematocrit 38.8 % (40-54); Hemoglobin 12.7 g/dL (13.0-16.5); Lymphocyte # 1.33 X10^3/ul (0.83-4.51); Lymphocyte % 26.1 % (19-41); Mean Corp Hgb Conc 32.7 g/dL (32-36); Mean Corpuscular Hgb 30.5 pg (27.0-32.0); Mean Platelet Vol. 10.8 fl (6.2-12.0); Monocyte% 11.8 % (0-10); NRBC Flagged by Analyzer 0 % (0-5); Neutrophil # 3.12 X10^3/uL (2.7-7.7); Neutrophil % 61.1 % (47-70); POSITIVE COUNT YES; Platelet Count 82 K/mm3 (150-450); RBC Distribution Width CV 13.7 % (11.6-14.6); RBC Distribution Width SD 46.8 fl (35.1-43.9); Red Blood Count 4.17 M/mm3 (4.6-6.2); White Blood Count 5.1 K/mm3 (4.4-11.0)
== END 2021-07-18 23:59 ==
LOC: BIMLAB 11:01
PROVIDERS: Family Provider Family Medicine; PCP Family Medicine; Referring Provider Psychiatry & Neurology Child & Adolescent Psychiatry; Visit Provider Psychiatry & Neurology Child & Adolescent Psychiatry
DX: Z79.899 Other long term (current) drug therapy (principal)
CPT/HCPCS: 36415; 80053; 80164; 85025

== ENCOUNTER 2021-08-17 10:03 | Outpatient (RCR) | payer MEDICAID, SELFPAY ==
[2021-07-19 01:11] VITALS: BMI 27.1
[2021-07-27 12:22] LABS: Absolute Lymphocyte Count 1.36 X10^3/uL (0.83-4.51); Absolute Neutrophil Count 1.7 X10^3/uL (2.0-7.7); Basophil# 0.01 X10^3/uL; Basophil% 0.3 % (0-1); Eosinophil# 0.05 X10^3/uL; Eosinophils% 1.4 % (0-5); Hematocrit 37.1 % (40-54); Hemoglobin 11.8 g/dL (13.0-16.5); Lymphocyte # 1.36 X10^3/ul (0.83-4.51); Lymphocyte % 37.3 % (19-41); Mean Corp Hgb Conc 31.8 g/dL (32-36); Mean Corpuscular Hgb 29.8 pg (27.0-32.0); Mean Corpuscular Volume 93.7 fL (80-94); Mean Platelet Vol. 9.6 fl (6.2-12.0); Monocyte# 0.54 X10^3/uL; Monocyte% 14.8 % (0-10); NRBC Flagged by Analyzer 0 % (0-5); Neutrophil # 1.68 X10^3/uL (2.7-7.7); Neutrophil % 45.9 % (47-70); POSITIVE COUNT YES; Platelet Count 57 K/mm3 (150-450); RBC Distribution Width SD 47.8 fl (35.1-43.9); Red Blood Count 3.96 M/mm3 (4.6-6.2); White Blood Count 3.7 K/mm3 (4.4-11.0)
[2021-07-27 12:42] LABS: ALB/GLOB Ratio 0.7 RATIO (0.9-2.4); AST(SGOT) 8 U/L (15-37); Alanine Aminotransfer ALT/SGPT 7 U/L (16-61); Albumin, Serum 3.1 g/dL (3.2-5.0); Alkaline Phosphatase 46 U/L (45-117); Anion Gap 4 (5-15); BUN 15 mg/dL (7-18); BUN/Creat Ratio 12.6 RATIO (10-20); Chloride 108 mmol/L (98-107); Creatinine, Serum 1.19 mg/dL (0.70-1.30); EST Glomerular Filtration Rate 72 mL/min (>60); Est Glom Filt Rate - Afr Amer 87 mL/min (>60); Globulin 4.2 g/dL (2.2-4.2); Glucose 102 mg/dL (74-106); Potassium 3.2 mmol/L (3.5-5.1); Protein, Total 7.3 g/dL (6.4-8.2); Sodium Level 144 mmol/L (136-145)
[2021-07-27 12:57] LABS: Valproic Acid (Depakene) Level 131 ug/mL (50-100)
[2021-08-10 10:14] LABS: Absolute Neutrophil Count 1.6 X10^3/uL (2.0-7.7); Basophil# 0.02 X10^3/uL; Basophil% 0.5 % (0-1); Eosinophil# 0.06 X10^3/uL; Eosinophils% 1.5 % (0-5); Hematocrit 38.4 % (40-54); Hemoglobin 12.3 g/dL (13.0-16.5); Lymphocyte % 35.5 % (19-41); Mean Corpuscular Hgb 29.9 pg (27.0-32.0); Mean Corpuscular Volume 93.2 fL (80-94); Monocyte# 0.83 X10^3/uL; Monocyte% 21.1 % (0-10); NRBC Flagged by Analyzer 0 % (0-5); Neutrophil # 1.61 X10^3/uL (2.7-7.7); Neutrophil % 40.9 % (47-70); Platelet Count 113 K/mm3 (150-450); RBC Distribution Width CV 15.5 % (11.6-14.6); RBC Distribution Width SD 52.9 fl (35.1-43.9); Red Blood Count 4.12 M/mm3 (4.6-6.2); White Blood Count 3.9 K/mm3 (4.4-11.0)
[2021-08-17 12:45] LABS: Absolute Lymphocyte Count 1.65 X10^3/uL (0.83-4.51); Absolute Neutrophil Count 2.3 X10^3/uL (2.0-7.7); Basophil# 0.02 X10^3/uL; Basophil% 0.4 % (0-1); Eosinophil# 0.08 X10^3/uL; Eosinophils% 1.6 % (0-5); Hematocrit 38.6 % (40-54); Hemoglobin 12.4 g/dL (13.0-16.5); Lymphocyte # 1.65 X10^3/ul (0.83-4.51); Mean Corp Hgb Conc 32.1 g/dL (32-36); Mean Corpuscular Hgb 30.2 pg (27.0-32.0); Mean Corpuscular Volume 94.1 fL (80-94); Mean Platelet Vol. 10.5 fl (6.2-12.0); Monocyte# 0.76 X10^3/uL; Monocyte% 15.6 % (0-10); NRBC Flagged by Analyzer 0 % (0-5); Neutrophil # 2.33 X10^3/uL (2.7-7.7); Platelet Count 136 K/mm3 (150-450); RBC Distribution Width CV 15.5 % (11.6-14.6); RBC Distribution Width SD 53.1 fl (35.1-43.9); White Blood Count 4.9 K/mm3 (4.4-11.0)
== END 2021-08-17 16:00 | disposition home or self-care (01) ==
LOC: MTLAB 10:03
PROVIDERS: Family Provider Family Medicine; PCP Family Medicine; Referring Provider Psychiatry & Neurology Child & Adolescent Psychiatry; Visit Provider Psychiatry & Neurology Child & Adolescent Psychiatry
DX: Z79.899 Other long term (current) drug therapy (principal)
CPT/HCPCS: 36415; 80053; 80164; 85025

== ENCOUNTER 2021-09-14 09:45 | Outpatient (RCR) | payer MEDICAID, SELFPAY ==
[2021-08-18 10:03] VITALS: BMI 27.1
[2021-08-24 11:58] LABS: Absolute Lymphocyte Count 1.51 X10^3/uL (0.83-4.51); Absolute Neutrophil Count 2.1 X10^3/uL (2.0-7.7); Basophil# 0.02 X10^3/uL; Basophil% 0.5 % (0-1); Eosinophil# 0.09 X10^3/uL; Eosinophils% 2.1 % (0-5); Hematocrit 36.9 % (40-54); Hemoglobin 11.7 g/dL (13.0-16.5); Lymphocyte # 1.51 X10^3/ul (0.83-4.51); Lymphocyte % 35.4 % (19-41); Mean Corp Hgb Conc 31.7 g/dL (32-36); Mean Corpuscular Hgb 29.4 pg (27.0-32.0); Mean Corpuscular Volume 92.7 fL (80-94); Mean Platelet Vol. 10.6 fl (6.2-12.0); Monocyte# 0.54 X10^3/uL; Monocyte% 12.7 % (0-10); NRBC Flagged by Analyzer 0 % (0-5); Neutrophil # 2.08 X10^3/uL (2.7-7.7); Neutrophil % 48.8 % (47-70); POSITIVE COUNT YES; Platelet Count 83 K/mm3 (150-450); RBC Distribution Width CV 15.3 % (11.6-14.6); RBC Distribution Width SD 52.7 fl (35.1-43.9); Red Blood Count 3.98 M/mm3 (4.6-6.2); White Blood Count 4.3 K/mm3 (4.4-11.0)
[2021-08-24 12:00] LABS: Differential Indicated SCAN CRITERIA MET
[2021-08-24 12:21] LABS: ALB/GLOB Ratio 0.8 RATIO (0.9-2.4); AST(SGOT) 13 U/L (15-37); Alanine Aminotransfer ALT/SGPT 12 U/L (16-61); Albumin, Serum 3.3 g/dL (3.2-5.0); Alkaline Phosphatase 50 U/L (45-117); Anion Gap 4 (5-15); BUN 13 mg/dL (7-18); BUN/Creat Ratio 11.6 RATIO (10-20); Calcium,Total 10.1 mg/dL (8.5-10.1); Chloride 107 mmol/L (98-107); Creatinine, Serum 1.12 mg/dL (0.70-1.30); EST Glomerular Filtration Rate 77 mL/min (>60); Est Glom Filt Rate - Afr Amer 93 mL/min (>60); Globulin 4.3 g/dL (2.2-4.2); Glucose 95 mg/dL (74-106); Potassium 4.1 mmol/L (3.5-5.1); Protein, Total 7.6 g/dL (6.4-8.2); Sodium Level 141 mmol/L (136-145)
[2021-08-24 12:26] LABS: Platelet Estimate MOD DEC (ADEQ)
[2021-08-24 12:33] LABS: Valproic Acid (Depakene) Level 86 ug/mL (50-100)
[2021-08-31 12:04] LABS: Absolute Lymphocyte Count 1.27 X10^3/uL (0.83-4.51); Absolute Neutrophil Count 2.5 X10^3/uL (2.0-7.7); Basophil# 0.02 X10^3/uL; Basophil% 0.5 % (0-1); Eosinophil# 0.06 X10^3/uL; Eosinophils% 1.4 % (0-5); Hematocrit 37.1 % (40-54); Hemoglobin 12.1 g/dL (13.0-16.5); Lymphocyte # 1.27 X10^3/ul (0.83-4.51); Lymphocyte % 29.3 % (19-41); Mean Corp Hgb Conc 32.6 g/dL (32-36); Mean Corpuscular Volume 92.1 fL (80-94); Mean Platelet Vol. 10.2 fl (6.2-12.0); Monocyte# 0.52 X10^3/uL; NRBC Flagged by Analyzer 0 % (0-5); Neutrophil # 2.45 X10^3/uL (2.7-7.7); Neutrophil % 56.3 % (47-70); Platelet Count 112 K/mm3 (150-450); RBC Distribution Width CV 14.9 % (11.6-14.6); RBC Distribution Width SD 51.6 fl (35.1-43.9); Red Blood Count 4.03 M/mm3 (4.6-6.2); White Blood Count 4.3 K/mm3 (4.4-11.0)
[2021-09-07 12:14] LABS: Absolute Lymphocyte Count 1.87 X10^3/uL (0.83-4.51); Absolute Neutrophil Count 2.3 X10^3/uL (2.0-7.7); Basophil# 0.01 X10^3/uL; Basophil% 0.2 % (0-1); Eosinophil# 0.08 X10^3/uL; Eosinophils% 1.6 % (0-5); Hemoglobin 12.7 g/dL (13.0-16.5); Lymphocyte # 1.87 X10^3/ul (0.83-4.51); Lymphocyte % 38.3 % (19-41); Mean Corp Hgb Conc 32.6 g/dL (32-36); Mean Corpuscular Hgb 30.1 pg (27.0-32.0); Mean Corpuscular Volume 92.4 fL (80-94); Mean Platelet Vol. 10.3 fl (6.2-12.0); Monocyte# 0.56 X10^3/uL; Monocyte% 11.5 % (0-10); NRBC Flagged by Analyzer 0 % (0-5); Neutrophil # 2.33 X10^3/uL (2.7-7.7); Neutrophil % 47.8 % (47-70); Platelet Count 158 K/mm3 (150-450); RBC Distribution Width CV 14.8 % (11.6-14.6); Red Blood Count 4.22 M/mm3 (4.6-6.2); White Blood Count 4.9 K/mm3 (4.4-11.0)
[2021-09-14 12:14] LABS: Absolute Lymphocyte Count 1.82 X10^3/uL (0.83-4.51); Absolute Neutrophil Count 2.2 X10^3/uL (2.0-7.7); Basophil# 0.01 X10^3/uL; Basophil% 0.2 % (0-1); Eosinophil# 0.06 X10^3/uL; Eosinophils% 1.3 % (0-5); Hematocrit 40.3 % (40-54); Hemoglobin 13.2 g/dL (13.0-16.5); Lymphocyte # 1.82 X10^3/ul (0.83-4.51); Lymphocyte % 38.2 % (19-41); Mean Corp Hgb Conc 32.8 g/dL (32-36); Mean Corpuscular Hgb 30.1 pg (27.0-32.0); Mean Platelet Vol. 10.4 fl (6.2-12.0); Monocyte# 0.61 X10^3/uL; Monocyte% 12.8 % (0-10); NRBC Flagged by Analyzer 0 % (0-5); Neutrophil # 2.24 X10^3/uL (2.7-7.7); Neutrophil % 47.1 % (47-70); Platelet Count 133 K/mm3 (150-450); RBC Distribution Width CV 14.9 % (11.6-14.6); RBC Distribution Width SD 50.8 fl (35.1-43.9); Red Blood Count 4.38 M/mm3 (4.6-6.2); White Blood Count 4.8 K/mm3 (4.4-11.0)
== END 2021-09-17 03:36 | disposition home or self-care (01) ==
LOC: MTLAB 09:45
PROVIDERS: Family Provider Family Medicine; PCP Family Medicine; Referring Provider Psychiatry & Neurology Child & Adolescent Psychiatry; Visit Provider Psychiatry & Neurology Child & Adolescent Psychiatry
DX: Z79.899 Other long term (current) drug therapy (principal)
CPT/HCPCS: 36415; 80053; 80164; 85025

== ENCOUNTER 2021-10-03 12:56 | Emergency (ER) | payer MEDICAID, SELFPAY ==
[2021-10-03 12:57] VITALS: BP 99/65; PULSE 110; RESP 19; TEMP 36.1; O2SAT 96; BMI 23.8
--- NOTE | 2021-10-03 13:27 | CM.ED ---
Addendum entered by Concepcion Hjai 10/03/21 15:29: SW updated MD Clifford of report provided by Shantell Saldivar of [employer]. Original Note: Social Work Note SW received a call from Shantell Saldivar of [facility]. Shantell states that pt will be coming to [facility] today. Shantell states that the family tried to get in contact with pt's GI Specialist Dr. Mallory but was unable to get a hold of him. Shantell states that there is concern that pt is impacted with bowel issues. Shantell states that pt had small bowel movement September 23 and September 24. Shantell states that t was eating normally up until recently but states pt has continued to drink normally. Shantell states pt has been lethargic. Concepcion Haji WIRE WHEELER, DYE WEIGHER
--- NOTE | 2021-10-03 15:05 | EDS_ITS ---
HPI History of Present Illness Chief Complaint: Constipation Informant: patient and family Onset/Context/Timing Onset: Weeks Narrative Narrative: Patient presents with family secondary to concerns for constipation. Patient has history of bipolar disorder as well as mental disability. History provided by family at bedside. They report he has not had a normal bowel movement in 2 weeks. He states he really has not had any output in about 8 days. No vomiting. No prior abdominal surgeries. They have not noted any fever or chills. They felt that he may be getting slightly weaker. [facility] Medical History Bipolar 1 disorder Debility GERD (gastroesophageal reflux disease) Hypercalcemia Mental disability Severe malnutrition Thrombocytopenia Home Medications buspirone 15 mg tablet 15 mg PO TID mood 04/18/18 [History Last Taken 04/06/21] clozapine 100 mg tablet 100 mg PO QHS mood 04/18/18 [History Last Taken 04/05/21] clozapine 50 mg tablet 50 mg PO DAILY mood 04/18/18 [History Last Taken 04/06/21] divalproex 500 mg tablet,delayed release 500 mg PO BID mood 04/18/18 [History Last Taken 04/06/21] divalproex 250 mg tablet,delayed release 250 mg PO BREAKFAST mood 07/17/18 [History Last Taken 04/06/21] diaper,brief,adult,disposable (Briefs) #10 ea 12/05/20 [Rx Last Taken Unknown] sennosides 8.6 mg-docusate sodium 50 mg tablet (Stool Softener-Stimulant Laxative) 1 tab PO BID #0 tabs 12/05/20 [Rx Last Taken 04/06/21] clonazepam 0.5 mg tablet 0.5 mg PO BID ANXIETY 04/06/21 [History Last Taken 04/06/21] oxybutynin chloride 10 mg tablet,extended release 24 hr 10 mg PO DAILY BLADDER 04/06/21 [History Last Taken 04/06/21] quetiapine 25 mg tablet (Seroquel) 25 mg PO BID MOOD 04/06/21 [History Last Taken 04/06/21] pantoprazole 40 mg tablet,delayed release 40 mg PO QAM #30 tabs 06/23/21 [Rx Last Taken Unknown] metoclopramide HCl 5 mg tablet 5 mg PO TID #90 tabs 08/18/21 [Rx Last Taken Unknown] Allergy/AdvReac Type Severity Reaction Status Date / Time No Known Allergies Allergy Verified 10/03/21 12:57 Social History household members: family Smoking Status: Never smoker alcohol intake: never ROS ROS ED ROS Narrative Provided best as possible by family members. Constitutional Constitutional ED: Denies chills or fever(s) ENT ENT ED: Denies rhinorrhea or sore throat Cardiovascular Cardiovascular: Denies chest pain Respiratory/Chest Respiratory/Chest: Denies cough or dyspnea Gastrointestinal Gastrointestinal: Reports constipation; Denies vomiting Genitourinary Genitourinary ED: Reports other Details: Slight decreased urine output Musculoskeletal Musculoskeletal: Denies back pain or extremity pain Integumentary Denies Abrasions or rash Neurologic Neurologic: Reports weakness Allergic/Immunologic Allergic/Immunologic ED: Denies lip swelling or urticaria EXAM Physical Exam Const Vital Signs: 10/03/21 12:57 10/03/21 15:56 Temperature 97.0 F L Temperature Source Temporal Pulse Rate 110 H 90 Respiratory Rate 19 H 18 Blood Pressure 99/65 104/83 H Blood Pressure Mean 76 90 Pulse Ox 96 95 Oxygen Delivery Method Room Air Room Air Positive well nourished and well developed General Appearance ED: well developed HEENT Reports normocephalic and head/scalp atraumatic Eyes PERRL and EOMs intact bilaterally Neck supple Chest Wall inspection of chest normal and palpation of chest normal Resp normal respiratory effort and clear to auscultation bilaterally Cardio regular rate and regular rhythm GI normal to inspection, nondistended, normoactive bowel sounds Palpation: soft Extremity normal to inspection Neuro Neuro Narrative: Slight contracture of the lower extremities Sensorium / Orientation: alert Skin no rashes or lesions noted MDM MDM MDM Narrative Medical decision making narrative: Patient sent for abdominal x-ray. Radiography Diagnostic Testing: Clinical Impression(s) from Imaging Studies KUB X-Ray 10/03/21 15:10 IMPRESSION: Abundance of stool in the large bowel, no significant distention to suggest obstruction. Electronically Signed: Brian Herman MD at 15:31 EDT Reading Location ID and State: [facility] / [place] Tel , Service support , Treatment and Re-Evaluation Narrative: X-ray shows increased stool throughout but no evidence of bowel obstruction per my interpretation. Radiology interpretation is reviewed and agrees. We attempted a soapsuds enema. Patient got about 50 cc of fluid in and started kicking and fighting. Given his mental disabilities not able tolerate this. Family did state that they gave him 2 suppositories yesterday. I will discharge him home with GoLytely to start tomorrow morning. Discharge Plan Triage Chief Complaint: Constipation ED Provider: Mary Clifford Dx/Rx/DC Orders Clinical Impression: Constipation Instructions: ED Constipation (Adult) Prescriptions: No Action pantoprazole 40 mg tablet,delayed release (DR/EC) 40 mg PO QAM Qty: 30 11RF metoclopramide HCl 5 mg tablet 5 mg PO TID Qty: 90 11RF Rx Instructions: administer 30 minutes before meals clozapine 100 MG tablet 100 mg PO QHS divalproex 500 MG tablet,delayed release (DR/EC) 500 mg PO BID buspirone 15 MG tablet 15 mg PO TID clozapine 50 MG tablet 50 mg PO DAILY divalproex 250 MG tablet 250 mg PO BREAKFAST Label Comments: TAKE ONE TABLET BY MOUTH EVERY MORNING sennosides-docusate sodium [Stool Softener-Stimulant Laxat] 8.6-50 mg Tablet 1 tab PO BID Qty: 0 0RF (DME) Briefs Misc See Rx Instructions .ROUTE .MEDSUPPLY Qty: 10 12RF Rx Instructions: As directed oxybutynin chloride 10 mg tablet extended release 24hr 10 mg PO DAILY clonazepam 0.5 mg tablet 0.5 mg PO BID quetiapine [Seroquel] 25 mg tablet 25 mg PO BID Primary Care Provider: Carlo Wellington Referrals: Carlo Wellington, [Primary Care Provider] - 3-5 Days if not improving Activity Restrictions/Additional Instructions: Take GoLytely as instructed for cleanout. You may consider using regular MiraLAX or other fiber agent to help prevent constipation in the future. Disposition Disposition: Home, Self Care
--- NOTE | 2021-10-03 15:10 | RAD_ITS ---
INDICATION: constipation EXAMINATION/TECHNIQUE: X-RAY - XR Abdomen 1 View COMPARISON: 12/12/2020. FINDINGS: BOWEL GAS PATTERN: Non-obstructive. No bowel or stomach distention. Abundance of stool in the large bowel. FREE AIR: Not assessed on a single supine view. ORGANOMEGALY: Not seen. CALCIFICATIONS: No abnormal calcifications observed. LOWER CHEST: No acute pathology. BONES AND SOFT TISSUES: No acute pathology. RAD/Abdomen Single View IMPRESSION: Abundance of stool in the large bowel, no significant distention to suggest obstruction. Electronically Signed: Brian Herman MD at 15:31 EDT ,
[2021-10-03 15:56] VITALS: BP 104/83; PULSE 90; RESP 18; O2SAT 95
[2021-10-03] MEDS: Electrolyte Solution/Peg's 4000 ML PO (16:17)
== END 2021-10-03 16:23 | disposition home or self-care (01) ==
PROVIDERS: Emergency Provider Emergency Medicine; PCP Family Medicine; Visit Provider Emergency Medicine
DX: K59.00 Constipation, unspecified (principal); F31.9 Bipolar disorder, unspecified; Z79.899 Other long term (current) drug therapy
CPT/HCPCS: 74018; 99285

== ENCOUNTER 2021-10-12 09:56 | Outpatient (RCR) | payer MEDICAID, SELFPAY ==
[2021-09-17 03:36] VITALS: BMI 27.1
[2021-09-21 10:26] LABS: Absolute Lymphocyte Count 1.33 X10^3/uL (0.83-4.51); Absolute Neutrophil Count 2.5 X10^3/uL (2.0-7.7); Basophil# 0.02 X10^3/uL; Basophil% 0.4 % (0-1); Eosinophil# 0.06 X10^3/uL; Eosinophils% 1.3 % (0-5); Hematocrit 37.9 % (40-54); Hemoglobin 12.5 g/dL (13.0-16.5); Lymphocyte # 1.33 X10^3/ul (0.83-4.51); Lymphocyte % 29.3 % (19-41); Mean Corpuscular Hgb 30.3 pg (27.0-32.0); Mean Platelet Vol. 10.4 fl (6.2-12.0); Monocyte% 13.2 % (0-10); NRBC Flagged by Analyzer 0 % (0-5); Neutrophil # 2.51 X10^3/uL (2.7-7.7); Neutrophil % 55.4 % (47-70); Platelet Count 106 K/mm3 (150-450); RBC Distribution Width CV 14.8 % (11.6-14.6); RBC Distribution Width SD 50.1 fl (35.1-43.9); Red Blood Count 4.12 M/mm3 (4.6-6.2); White Blood Count 4.5 K/mm3 (4.4-11.0)
[2021-09-21 11:06] LABS: Valproic Acid (Depakene) Level 104 ug/mL (50-100)
[2021-09-21 11:10] LABS: ALB/GLOB Ratio 0.8 RATIO (0.9-2.4); AST(SGOT) 9 U/L (15-37); Alanine Aminotransfer ALT/SGPT 12 U/L (16-61); Albumin, Serum 3.3 g/dL (3.2-5.0); Alkaline Phosphatase 49 U/L (45-117); Anion Gap 5 (5-15); BUN 18 mg/dL (7-18); BUN/Creat Ratio 16.8 RATIO (10-20); Calcium,Total 9.9 mg/dL (8.5-10.1); Chloride 106 mmol/L (98-107); Creatinine, Serum 1.07 mg/dL (0.70-1.30); EST Glomerular Filtration Rate 81 mL/min (>60); Est Glom Filt Rate - Afr Amer 98 mL/min (>60); Globulin 4.1 g/dL (2.2-4.2); Glucose 107 mg/dL (74-106); Protein, Total 7.4 g/dL (6.4-8.2); Sodium Level 139 mmol/L (136-145)
[2021-10-12 12:00] LABS: Absolute Lymphocyte Count 2.11 X10^3/uL (0.83-4.51); Absolute Neutrophil Count 2.2 X10^3/uL (2.0-7.7); Basophil# 0.02 X10^3/uL; Basophil% 0.4 % (0-1); Eosinophil# 0.07 X10^3/uL; Eosinophils% 1.3 % (0-5); Hematocrit 40.6 % (40-54); Hemoglobin 12.9 g/dL (13.0-16.5); Lymphocyte # 2.11 X10^3/ul (0.83-4.51); Lymphocyte % 40.6 % (19-41); Mean Corp Hgb Conc 31.8 g/dL (32-36); Mean Corpuscular Volume 94.4 fL (80-94); Mean Platelet Vol. 10.2 fl (6.2-12.0); Monocyte# 0.78 X10^3/uL; NRBC Flagged by Analyzer 0 % (0-5); Neutrophil # 2.17 X10^3/uL (2.7-7.7); Neutrophil % 41.7 % (47-70); Platelet Count 133 K/mm3 (150-450); RBC Distribution Width CV 14.9 % (11.6-14.6); White Blood Count 5.2 K/mm3 (4.4-11.0)
== END 2021-10-12 18:00 | disposition home or self-care (01) ==
LOC: MTLAB 09:56
PROVIDERS: Family Provider Family Medicine; PCP Family Medicine; Referring Provider Psychiatry & Neurology Child & Adolescent Psychiatry; Visit Provider Psychiatry & Neurology Child & Adolescent Psychiatry
DX: Z79.899 Other long term (current) drug therapy (principal)
CPT/HCPCS: 36415; 80053; 80164; 85025

== ENCOUNTER 2021-11-17 10:05 | Outpatient (RCR) | payer MEDICAID, SELFPAY ==
[2021-10-19 01:10] VITALS: BMI 27.1
[2021-10-19 12:11] LABS: Absolute Lymphocyte Count 1.52 X10^3/uL (0.83-4.51); Absolute Neutrophil Count 2.5 X10^3/uL (2.0-7.7); Basophil# 0.02 X10^3/uL; Basophil% 0.4 % (0-1); Eosinophil# 0.11 X10^3/uL; Eosinophils% 2.2 % (0-5); Hematocrit 40.7 % (40-54); Hemoglobin 12.9 g/dL (13.0-16.5); Lymphocyte # 1.52 X10^3/ul (0.83-4.51); Lymphocyte % 30.9 % (19-41); Mean Corp Hgb Conc 31.7 g/dL (32-36); Mean Corpuscular Hgb 30.1 pg (27.0-32.0); Mean Corpuscular Volume 94.9 fL (80-94); Mean Platelet Vol. 10.9 fl (6.2-12.0); Monocyte# 0.75 X10^3/uL; Monocyte% 15.2 % (0-10); NRBC Flagged by Analyzer 0 % (0-5); Neutrophil % 50.9 % (47-70); Platelet Count 109 K/mm3 (150-450); RBC Distribution Width CV 14.6 % (11.6-14.6); RBC Distribution Width SD 51.4 fl (35.1-43.9); Red Blood Count 4.29 M/mm3 (4.6-6.2); White Blood Count 4.9 K/mm3 (4.4-11.0)
[2021-10-19 12:20] LABS: Valproic Acid (Depakene) Level 114 ug/mL (50-100)
[2021-10-19 12:22] LABS: ALB/GLOB Ratio 0.7 RATIO (0.9-2.4); AST(SGOT) 10 U/L (15-37); Alanine Aminotransfer ALT/SGPT 12 U/L (16-61); Albumin, Serum 3.3 g/dL (3.2-5.0); Alkaline Phosphatase 48 U/L (45-117); Anion Gap 5 (5-15); BUN 16 mg/dL (7-18); Calcium,Total 9.8 mg/dL (8.5-10.1); Chloride 106 mmol/L (98-107); EST Glomerular Filtration Rate 88 mL/min (>60); Est Glom Filt Rate - Afr Amer 106 mL/min (>60); Globulin 4.5 g/dL (2.2-4.2); Glucose 73 mg/dL (74-106); Potassium 3.9 mmol/L (3.5-5.1); Protein, Total 7.8 g/dL (6.4-8.2); Sodium Level 143 mmol/L (136-145)
[2021-10-27 11:54] LABS: Absolute Lymphocyte Count 1.66 X10^3/uL (0.83-4.51); Absolute Neutrophil Count 1.9 X10^3/uL (2.0-7.7); Basophil# 0.02 X10^3/uL; Basophil% 0.5 % (0-1); Eosinophil# 0.08 X10^3/uL; Eosinophils% 1.9 % (0-5); Hematocrit 42.1 % (40-54); Hemoglobin 13.4 g/dL (13.0-16.5); Lymphocyte # 1.66 X10^3/ul (0.83-4.51); Lymphocyte % 39.6 % (19-41); Mean Corp Hgb Conc 31.8 g/dL (32-36); Mean Corpuscular Hgb 29.7 pg (27.0-32.0); Mean Corpuscular Volume 93.3 fL (80-94); Mean Platelet Vol. 10.5 fl (6.2-12.0); Monocyte# 0.51 X10^3/uL; Monocyte% 12.2 % (0-10); NRBC Flagged by Analyzer 0 % (0-5); Neutrophil % 45.3 % (47-70); Platelet Count 125 K/mm3 (150-450); RBC Distribution Width CV 14.3 % (11.6-14.6); RBC Distribution Width SD 49.5 fl (35.1-43.9); Red Blood Count 4.51 M/mm3 (4.6-6.2); White Blood Count 4.2 K/mm3 (4.4-11.0)
[2021-10-27 12:14] LABS: ALB/GLOB Ratio 0.7 RATIO (0.9-2.4); AST(SGOT) 8 U/L (15-37); Alanine Aminotransfer ALT/SGPT 11 U/L (16-61); Albumin, Serum 3.4 g/dL (3.2-5.0); Alkaline Phosphatase 54 U/L (45-117); Anion Gap 9 (5-15); BUN 10 mg/dL (7-18); BUN/Creat Ratio 10.5 RATIO (10-20); Calcium,Total 10.4 mg/dL (8.5-10.1); Chloride 102 mmol/L (98-107); Creatinine, Serum 0.95 mg/dL (0.70-1.30); EST Glomerular Filtration Rate 93 mL/min (>60); Est Glom Filt Rate - Afr Amer 113 mL/min (>60); Globulin 4.8 g/dL (2.2-4.2); Glucose 77 mg/dL (74-106); Potassium 3.7 mmol/L (3.5-5.1); Protein, Total 8.2 g/dL (6.4-8.2); Sodium Level 140 mmol/L (136-145)
[2021-10-27 12:25] LABS: Valproic Acid (Depakene) Level 92 ug/mL (50-100)
[2021-11-03 12:16] LABS: Absolute Lymphocyte Count 1.55 X10^3/uL (0.83-4.51); Absolute Neutrophil Count 1.9 X10^3/uL (2.0-7.7); Basophil# 0.01 X10^3/uL; Basophil% 0.3 % (0-1); Eosinophil# 0.09 X10^3/uL; Eosinophils% 2.3 % (0-5); Hematocrit 40.7 % (40-54); Hemoglobin 12.9 g/dL (13.0-16.5); Lymphocyte # 1.55 X10^3/ul (0.83-4.51); Lymphocyte % 38.8 % (19-41); Mean Corp Hgb Conc 31.7 g/dL (32-36); Mean Corpuscular Hgb 29.8 pg (27.0-32.0); Mean Platelet Vol. 10.6 fl (6.2-12.0); Monocyte# 0.46 X10^3/uL; Monocyte% 11.5 % (0-10); NRBC Flagged by Analyzer 0 % (0-5); Neutrophil # 1.88 X10^3/uL (2.7-7.7); Neutrophil % 46.8 % (47-70); Platelet Count 112 K/mm3 (150-450); RBC Distribution Width SD 48.4 fl (35.1-43.9); Red Blood Count 4.33 M/mm3 (4.6-6.2)
[2021-11-10 11:42] LABS: Absolute Lymphocyte Count 1.37 X10^3/uL (0.83-4.51); Absolute Neutrophil Count 2.4 X10^3/uL (2.0-7.7); Basophil# 0.01 X10^3/uL; Basophil% 0.2 % (0-1); Eosinophil# 0.06 X10^3/uL; Eosinophils% 1.4 % (0-5); Hematocrit 39.1 % (40-54); Hemoglobin 12.8 g/dL (13.0-16.5); Lymphocyte # 1.37 X10^3/ul (0.83-4.51); Lymphocyte % 31.9 % (19-41); Mean Corp Hgb Conc 32.7 g/dL (32-36); Mean Corpuscular Hgb 30.3 pg (27.0-32.0); Mean Corpuscular Volume 92.4 fL (80-94); Mean Platelet Vol. 10.3 fl (6.2-12.0); Monocyte# 0.48 X10^3/uL; Monocyte% 11.2 % (0-10); NRBC Flagged by Analyzer 0 % (0-5); Neutrophil # 2.37 X10^3/uL (2.7-7.7); Neutrophil % 55.1 % (47-70); Platelet Count 114 K/mm3 (150-450); RBC Distribution Width CV 13.9 % (11.6-14.6); RBC Distribution Width SD 46.9 fl (35.1-43.9); Red Blood Count 4.23 M/mm3 (4.6-6.2); White Blood Count 4.3 K/mm3 (4.4-11.0)
[2021-11-17 12:10] LABS: Absolute Lymphocyte Count 1.95 X10^3/uL (0.83-4.51); Absolute Neutrophil Count 2.9 X10^3/uL (2.0-7.7); Basophil# 0.02 X10^3/uL; Basophil% 0.3 % (0-1); Eosinophil# 0.09 X10^3/uL; Eosinophils% 1.6 % (0-5); Hematocrit 40.7 % (40-54); Hemoglobin 13.5 g/dL (13.0-16.5); Lymphocyte # 1.95 X10^3/ul (0.83-4.51); Mean Corp Hgb Conc 33.2 g/dL (32-36); Mean Corpuscular Hgb 31.2 pg (27.0-32.0); Mean Platelet Vol. 10.6 fl (6.2-12.0); Monocyte# 0.72 X10^3/uL; Monocyte% 12.6 % (0-10); NRBC Flagged by Analyzer 0 % (0-5); Neutrophil # 2.92 X10^3/uL (2.7-7.7); Platelet Count 134 K/mm3 (150-450); RBC Distribution Width CV 14.4 % (11.6-14.6); RBC Distribution Width SD 49.8 fl (35.1-43.9); Red Blood Count 4.33 M/mm3 (4.6-6.2); White Blood Count 5.7 K/mm3 (4.4-11.0)
== END 2021-11-17 18:00 | disposition home or self-care (01) ==
LOC: MTLAB 10:05
PROVIDERS: Family Provider Family Medicine; PCP Family Medicine; Referring Provider Psychiatry & Neurology Child & Adolescent Psychiatry; Visit Provider Psychiatry & Neurology Child & Adolescent Psychiatry
DX: Z79.899 Other long term (current) drug therapy (principal)
CPT/HCPCS: 36415; 80053; 80164; 85025

== ENCOUNTER → 2021-11-20 | Outpatient (CLI) | payer MEDICAID, SELFPAY ==
[2021-11-20 10:46] LABS: Color, Urine Yellow (Yellow); Glucose, Dipstick Normal (Normal); Ketone-Dipstick 5 mg/dl (Negative); Leukocyte Esterase-Dipstick 25 /ul (Negative); Nitrite-Dipstick Negative (Negative); Occult Blood-Urine Negative /ul (Negative); Protein-Dipstick 15 mg/dl (Negative); Urine Bilirubin Dipstick Negative (Negative); Urine Clarity Clear (Clear); Urine Urobilinogen Normal (Normal); Urine pH 6.5 (5.0 - 8.0)
== END | disposition home or self-care (01) ==
PROVIDERS: PCP Family Medicine; Referring Provider Psychiatry & Neurology Child & Adolescent Psychiatry; Visit Provider Psychiatry & Neurology Child & Adolescent Psychiatry
DX: Z79.899 Other long term (current) drug therapy (principal)
CPT/HCPCS: 81002; 87086; 87088

== ENCOUNTER 2021-12-08 10:21 | Outpatient (RCR) | payer MEDICAID, SELFPAY ==
[2021-11-18 04:09] VITALS: BMI 27.1
[2021-11-24 12:15] LABS: Absolute Lymphocyte Count 1.67 X10^3/uL (0.83-4.51); Absolute Neutrophil Count 1.9 X10^3/uL (2.0-7.7); Basophil# 0.01 X10^3/uL; Basophil% 0.2 % (0-1); Eosinophil# 0.05 X10^3/uL; Eosinophils% 1.1 % (0-5); Hematocrit 39.7 % (40-54); Hemoglobin 12.6 g/dL (13.0-16.5); Lymphocyte # 1.67 X10^3/ul (0.83-4.51); Lymphocyte % 38.3 % (19-41); Mean Corp Hgb Conc 31.7 g/dL (32-36); Mean Corpuscular Hgb 30.1 pg (27.0-32.0); Mean Platelet Vol. 10.6 fl (6.2-12.0); Monocyte# 0.71 X10^3/uL; Monocyte% 16.3 % (0-10); NRBC Flagged by Analyzer 0 % (0-5); Neutrophil # 1.91 X10^3/uL (2.7-7.7); Neutrophil % 43.9 % (47-70); Platelet Count 124 K/mm3 (150-450); RBC Distribution Width CV 14.5 % (11.6-14.6); RBC Distribution Width SD 50.2 fl (35.1-43.9); Red Blood Count 4.18 M/mm3 (4.6-6.2); White Blood Count 4.4 K/mm3 (4.4-11.0)
[2021-11-24 12:28] LABS: ALB/GLOB Ratio 0.7 RATIO (0.9-2.4); AST(SGOT) 8 U/L (15-37); Alanine Aminotransfer ALT/SGPT 11 U/L (16-61); Albumin, Serum 3.1 g/dL (3.2-5.0); Alkaline Phosphatase 52 U/L (45-117); Anion Gap 8 (5-15); BUN 10 mg/dL (7-18); BUN/Creat Ratio 10.5 RATIO (10-20); Chloride 104 mmol/L (98-107); Creatinine, Serum 0.96 mg/dL (0.70-1.30); EST Glomerular Filtration Rate 93 mL/min (>60); Est Glom Filt Rate - Afr Amer 112 mL/min (>60); Globulin 4.3 g/dL (2.2-4.2); Glucose 106 mg/dL (74-106); Potassium 3.7 mmol/L (3.5-5.1); Protein, Total 7.4 g/dL (6.4-8.2); Sodium Level 141 mmol/L (136-145)
[2021-11-24 12:33] LABS: Valproic Acid (Depakene) Level 91 ug/mL (50-100)
[2021-12-01 12:44] LABS: Absolute Neutrophil Count 1.8 X10^3/uL (2.0-7.7); Basophil# 0.02 X10^3/uL; Basophil% 0.5 % (0-1); Eosinophil# 0.06 X10^3/uL; Eosinophils% 1.5 % (0-5); Hematocrit 40.8 % (40-54); Lymphocyte % 40.5 % (19-41); Mean Corp Hgb Conc 31.9 g/dL (32-36); Mean Corpuscular Hgb 29.7 pg (27.0-32.0); Mean Corpuscular Volume 93.4 fL (80-94); Mean Platelet Vol. 10.6 fl (6.2-12.0); Monocyte# 0.47 X10^3/uL; Monocyte% 11.9 % (0-10); NRBC Flagged by Analyzer 0 % (0-5); Neutrophil # 1.78 X10^3/uL (2.7-7.7); Neutrophil % 45.1 % (47-70); Platelet Count 126 K/mm3 (150-450); RBC Distribution Width CV 14.2 % (11.6-14.6); RBC Distribution Width SD 48.4 fl (35.1-43.9); Red Blood Count 4.37 M/mm3 (4.6-6.2)
[2021-12-08 12:18] LABS: Absolute Lymphocyte Count 1.52 X10^3/uL (0.83-4.51); Absolute Neutrophil Count 3.1 X10^3/uL (2.0-7.7); Basophil# 0.02 X10^3/uL; Basophil% 0.4 % (0-1); Eosinophil# 0.07 X10^3/uL; Eosinophils% 1.3 % (0-5); Hematocrit 41.5 % (40-54); Lymphocyte # 1.52 X10^3/ul (0.83-4.51); Lymphocyte % 28.4 % (19-41); Mean Corp Hgb Conc 31.3 g/dL (32-36); Mean Corpuscular Hgb 29.5 pg (27.0-32.0); Mean Corpuscular Volume 94.1 fL (80-94); Mean Platelet Vol. 10.6 fl (6.2-12.0); Monocyte# 0.59 X10^3/uL; NRBC Flagged by Analyzer 0 % (0-5); Neutrophil # 3.13 X10^3/uL (2.7-7.7); Neutrophil % 58.5 % (47-70); Platelet Count 125 K/mm3 (150-450); RBC Distribution Width CV 14.3 % (11.6-14.6); RBC Distribution Width SD 49.6 fl (35.1-43.9); Red Blood Count 4.41 M/mm3 (4.6-6.2); White Blood Count 5.4 K/mm3 (4.4-11.0)
== END 2021-12-08 18:00 | disposition home or self-care (01) ==
LOC: MTLAB 10:21
PROVIDERS: Family Provider Family Medicine; PCP Family Medicine; Referring Provider Psychiatry & Neurology Child & Adolescent Psychiatry; Visit Provider Psychiatry & Neurology Child & Adolescent Psychiatry
DX: Z79.899 Other long term (current) drug therapy (principal)
CPT/HCPCS: 36415; 80053; 80164; 85025

== ENCOUNTER → 2022-01-04 | Outpatient (CLI) | payer MEDICAID, SELFPAY ==
[2022-01-04 11:02] LABS: Absolute Lymphocyte Count 1.01 X10^3/uL (0.83-4.51); Absolute Neutrophil Count 1.6 X10^3/uL (2.0-7.7); Basophil# 0.01 X10^3/uL; Basophil% 0.3 % (0-1); Eosinophil# 0.07 X10^3/uL; Eosinophils% 2.3 % (0-5); Hematocrit 37.1 % (40-54); Hemoglobin 11.9 g/dL (13.0-16.5); Lymphocyte # 1.01 X10^3/ul (0.83-4.51); Lymphocyte % 33.8 % (19-41); Mean Corp Hgb Conc 32.1 g/dL (32-36); Mean Corpuscular Hgb 29.5 pg (27.0-32.0); Mean Corpuscular Volume 91.8 fL (80-94); Monocyte# 0.29 X10^3/uL; Monocyte% 9.7 % (0-10); NRBC Flagged by Analyzer 0 % (0-5); Neutrophil % 53.6 % (47-70); Platelet Count 115 K/mm3 (150-450); RBC Distribution Width CV 14.3 % (11.6-14.6); RBC Distribution Width SD 48.5 fl (35.1-43.9); Red Blood Count 4.04 M/mm3 (4.6-6.2)
[2022-01-04 11:15] LABS: ALB/GLOB Ratio 0.7 RATIO (0.9-2.4); AST(SGOT) 5 U/L (15-37); Alanine Aminotransfer ALT/SGPT 8 U/L (16-61); Albumin, Serum 2.8 g/dL (3.2-5.0); Alkaline Phosphatase 45 U/L (45-117); Anion Gap 6 (5-15); BUN 12 mg/dL (7-18); BUN/Creat Ratio 14.5 RATIO (10-20); Calcium,Total 9.5 mg/dL (8.5-10.1); Chloride 108 mmol/L (98-107); Creatinine, Serum 0.83 mg/dL (0.70-1.30); EST Glomerular Filtration Rate 109 mL/min (>60); Est Glom Filt Rate - Afr Amer 132 mL/min (>60); Globulin 3.8 g/dL (2.2-4.2); Glucose 101 mg/dL (74-106); Potassium 3.9 mmol/L (3.5-5.1); Protein, Total 6.6 g/dL (6.4-8.2); Sodium Level 143 mmol/L (136-145)
[2022-01-04 11:19] LABS: Valproic Acid (Depakene) Level 70 ug/mL (50-100)
== END | disposition home or self-care (01) ==
LOC: LAB 08:40
PROVIDERS: PCP Family Medicine; Referring Provider Psychiatry & Neurology Child & Adolescent Psychiatry; Visit Provider Psychiatry & Neurology Child & Adolescent Psychiatry
DX: Z79.899 Other long term (current) drug therapy (principal)
CPT/HCPCS: 36415; 80053; 80164; 85025

== ENCOUNTER → 2022-01-10 | Outpatient (CLI) | payer MEDICAID, SELFPAY ==
[2022-01-10 10:21] LABS: Absolute Neutrophil Count 1.5 X10^3/uL (2.0-7.7); Basophil# 0.02 X10^3/uL; Basophil% 0.6 % (0-1); Eosinophil# 0.07 X10^3/uL; Eosinophils% 2.1 % (0-5); Hematocrit 39.8 % (40-54); Hemoglobin 12.7 g/dL (13.0-16.5); Mean Corp Hgb Conc 31.9 g/dL (32-36); Mean Corpuscular Hgb 29.8 pg (27.0-32.0); Mean Corpuscular Volume 93.4 fL (80-94); Mean Platelet Vol. 10.4 fl (6.2-12.0); Monocyte# 0.36 X10^3/uL; Monocyte% 10.8 % (0-10); NRBC Flagged by Analyzer 0 % (0-5); Neutrophil # 1.47 X10^3/uL (2.7-7.7); Neutrophil % 44.2 % (47-70); Platelet Count 109 K/mm3 (150-450); RBC Distribution Width CV 14.1 % (11.6-14.6); RBC Distribution Width SD 47.8 fl (35.1-43.9); Red Blood Count 4.26 M/mm3 (4.6-6.2); White Blood Count 3.3 K/mm3 (4.4-11.0)
== END | disposition home or self-care (01) ==
LOC: LAB 08:52
PROVIDERS: PCP Family Medicine; Referring Provider Psychiatry & Neurology Child & Adolescent Psychiatry; Visit Provider Psychiatry & Neurology Child & Adolescent Psychiatry
DX: Z79.899 Other long term (current) drug therapy (principal)
CPT/HCPCS: 36415; 85025

== ENCOUNTER → 2022-01-18 | Outpatient (CLI) | payer MEDICAID, SELFPAY ==
[2022-01-18 10:57] LABS: Absolute Lymphocyte Count 0.83 X10^3/uL (0.83-4.51); Absolute Neutrophil Count 3.9 X10^3/uL (2.0-7.7); Basophil# 0.01 X10^3/uL; Basophil% 0.2 % (0-1); Hematocrit 39.1 % (40-54); Hemoglobin 12.4 g/dL (13.0-16.5); Lymphocyte # 0.83 X10^3/ul (0.83-4.51); Lymphocyte % 15.3 % (19-41); Mean Corp Hgb Conc 31.7 g/dL (32-36); Mean Corpuscular Hgb 29.3 pg (27.0-32.0); Mean Corpuscular Volume 92.4 fL (80-94); Mean Platelet Vol. 10.6 fl (6.2-12.0); Monocyte# 0.71 X10^3/uL; Monocyte% 13.1 % (0-10); NRBC Flagged by Analyzer 0 % (0-5); Neutrophil # 3.85 X10^3/uL (2.7-7.7); POSITIVE COUNT YES; Platelet Count 70 K/mm3 (150-450); RBC Distribution Width SD 47.8 fl (35.1-43.9); Red Blood Count 4.23 M/mm3 (4.6-6.2); White Blood Count 5.4 K/mm3 (4.4-11.0)
[2022-01-18 10:58] LABS: Differential Indicated SCAN CRITERIA MET
[2022-01-18 11:17] LABS: Platelet Estimate MOD DEC (ADEQ)
== END | disposition home or self-care (01) ==
PROVIDERS: PCP Family Medicine; Referring Provider Psychiatry & Neurology Child & Adolescent Psychiatry; Visit Provider Psychiatry & Neurology Child & Adolescent Psychiatry
DX: Z79.899 Other long term (current) drug therapy (principal)
CPT/HCPCS: 36415; 85025

== ENCOUNTER → 2022-01-25 | Outpatient (CLI) | payer MEDICAID, SELFPAY ==
[2022-01-25 11:13] LABS: Hematocrit 35.2 % (40-54); Hemoglobin 11.6 g/dL (13.0-16.5); Mean Corpuscular Hgb 30.1 pg (27.0-32.0); Mean Corpuscular Volume 91.4 fL (80-94); Mean Platelet Vol. 9.5 fl (6.2-12.0); POSITIVE COUNT YES; POSITIVE MORPHOLOGY YES; Platelet Count 130 K/mm3 (150-450); RBC Distribution Width CV 14.6 % (11.6-14.6); RBC Distribution Width SD 49.2 fl (35.1-43.9); Red Blood Count 3.85 M/mm3 (4.6-6.2); White Blood Count 3.8 K/mm3 (4.4-11.0)
[2022-01-25 11:17] LABS: Differential Indicated MANUAL DIFF
[2022-01-25 11:50] LABS: Lymphocyte 41 % (19-41); Metamyelocyte 3 % (0-1); Monocyte 6 % (0-10); Myelocyte 8 % (0-0); Neutrophil-Band 7 % (0-5); Neutrophil-Segmented 35 % (47-70); Platelet Estimate ADEQUATE (ADEQ); Red Cell Morphology NORM C+C NORMAL (NORM C&C); Total Cells Counted 100 (MANUAL DIFF)
[2022-01-25 11:51] LABS: Absolute Lymphocyte Count 1.56 X10^3/uL (0.83-4.51); Absolute Neutrophil Count 1.6 X10^3/uL (2.0-7.7)
[2022-01-26 12:03] LABS: Pathologist Review Reviewed
== END | disposition home or self-care (01) ==
LOC: LAB 09:06
PROVIDERS: PCP Family Medicine; Referring Provider Psychiatry & Neurology Child & Adolescent Psychiatry; Visit Provider Psychiatry & Neurology Child & Adolescent Psychiatry
DX: Z79.899 Other long term (current) drug therapy (principal)
CPT/HCPCS: 36415; 85025

== ENCOUNTER → 2022-02-01 | Outpatient (CLI) | payer MEDICAID, SELFPAY ==
[2022-02-01 10:14] LABS: Absolute Lymphocyte Count 1.81 X10^3/uL (0.83-4.51); Absolute Neutrophil Count 2.2 X10^3/uL (2.0-7.7); Basophil# 0.01 X10^3/uL; Basophil% 0.2 % (0-1); Eosinophil# 0.03 X10^3/uL; Eosinophils% 0.7 % (0-5); Hematocrit 35.5 % (40-54); Hemoglobin 11.3 g/dL (13.0-16.5); Lymphocyte # 1.81 X10^3/ul (0.83-4.51); Lymphocyte % 39.6 % (19-41); Mean Corp Hgb Conc 31.8 g/dL (32-36); Mean Corpuscular Hgb 29.2 pg (27.0-32.0); Mean Corpuscular Volume 91.7 fL (80-94); Mean Platelet Vol. 11.6 fl (6.2-12.0); Monocyte# 0.46 X10^3/uL; Monocyte% 10.1 % (0-10); NRBC Flagged by Analyzer 0 % (0-5); Neutrophil # 2.23 X10^3/uL (2.7-7.7); Neutrophil % 48.7 % (47-70); POSITIVE COUNT YES; RBC Distribution Width CV 14.7 % (11.6-14.6); RBC Distribution Width SD 49.7 fl (35.1-43.9); Red Blood Count 3.87 M/mm3 (4.6-6.2); White Blood Count 4.6 K/mm3 (4.4-11.0)
[2022-02-01 10:41] LABS: ALB/GLOB Ratio 0.6 RATIO (0.9-2.4); AST(SGOT) 8 U/L (15-37); Alanine Aminotransfer ALT/SGPT 8 U/L (16-61); Albumin, Serum 2.6 g/dL (3.2-5.0); Alkaline Phosphatase 37 U/L (45-117); Anion Gap 5 (5-15); BUN 8 mg/dL (7-18); BUN/Creat Ratio 10.6 RATIO (10-20); Calcium,Total 9.7 mg/dL (8.5-10.1); Chloride 105 mmol/L (98-107); Creatinine, Serum 0.76 mg/dL (0.70-1.30); EST Glomerular Filtration Rate 121 mL/min (>60); Est Glom Filt Rate - Afr Amer 146 mL/min (>60); Globulin 4.3 g/dL (2.2-4.2); Glucose 123 mg/dL (74-106); Potassium 4.1 mmol/L (3.5-5.1); Protein, Total 6.9 g/dL (6.4-8.2); Sodium Level 138 mmol/L (136-145)
[2022-02-01 10:43] LABS: Differential Indicated SCAN CRITERIA MET
[2022-02-01 10:44] LABS: Platelet Estimate SLT DEC (ADEQ); Valproic Acid (Depakene) Level 94 ug/mL (50-100)
== END | disposition home or self-care (01) ==
LOC: LAB 08:11
PROVIDERS: PCP Family Medicine; Referring Provider Psychiatry & Neurology Child & Adolescent Psychiatry; Visit Provider Psychiatry & Neurology Child & Adolescent Psychiatry
DX: Z79.899 Other long term (current) drug therapy (principal)
CPT/HCPCS: 36415; 80053; 80164; 85025

== ENCOUNTER → 2022-02-07 | Outpatient (CLI) | payer MEDICAID, SELFPAY ==
[2022-02-07 11:03] LABS: Absolute Lymphocyte Count 1.49 X10^3/uL (0.83-4.51); Absolute Neutrophil Count 1.1 X10^3/uL (2.0-7.7); Basophil# 0.02 X10^3/uL; Basophil% 0.6 % (0-1); Eosinophil# 0.03 X10^3/uL; Hematocrit 36.1 % (40-54); Hemoglobin 11.2 g/dL (13.0-16.5); Lymphocyte # 1.49 X10^3/ul (0.83-4.51); Lymphocyte % 48.2 % (19-41); Mean Corpuscular Hgb 28.9 pg (27.0-32.0); Mean Corpuscular Volume 93.3 fL (80-94); Monocyte# 0.43 X10^3/uL; Monocyte% 13.9 % (0-10); NRBC Flagged by Analyzer 0 % (0-5); Neutrophil % 35.7 % (47-70); Platelet Count 132 K/mm3 (150-450); RBC Distribution Width CV 15.1 % (11.6-14.6); RBC Distribution Width SD 51.5 fl (35.1-43.9); Red Blood Count 3.87 M/mm3 (4.6-6.2); White Blood Count 3.1 K/mm3 (4.4-11.0)
== END | disposition home or self-care (01) ==
LOC: LAB 07:13
PROVIDERS: PCP Family Medicine; Referring Provider Psychiatry & Neurology Child & Adolescent Psychiatry; Visit Provider Psychiatry & Neurology Child & Adolescent Psychiatry
DX: Z79.899 Other long term (current) drug therapy (principal)
CPT/HCPCS: 36415; 85025

== ENCOUNTER → 2022-02-14 | Outpatient (CLI) | payer MEDICAID, SELFPAY ==
[2022-02-14 10:10] LABS: Absolute Lymphocyte Count 1.99 X10^3/uL (0.83-4.51); Absolute Neutrophil Count 2.1 X10^3/uL (2.0-7.7); Basophil# 0.01 X10^3/uL; Basophil% 0.2 % (0-1); Eosinophil# 0.06 X10^3/uL; Eosinophils% 1.3 % (0-5); Hematocrit 37.8 % (40-54); Hemoglobin 12.5 g/dL (13.0-16.5); Lymphocyte # 1.99 X10^3/ul (0.83-4.51); Mean Corp Hgb Conc 33.1 g/dL (32-36); Mean Corpuscular Hgb 30.1 pg (27.0-32.0); Mean Corpuscular Volume 91.1 fL (80-94); Mean Platelet Vol. 10.2 fl (6.2-12.0); Monocyte# 0.49 X10^3/uL; Monocyte% 10.6 % (0-10); NRBC Flagged by Analyzer 0 % (0-5); Neutrophil # 2.07 X10^3/uL (2.7-7.7); Neutrophil % 44.7 % (47-70); Platelet Count 115 K/mm3 (150-450); RBC Distribution Width CV 15.7 % (11.6-14.6); RBC Distribution Width SD 52.1 fl (35.1-43.9); Red Blood Count 4.15 M/mm3 (4.6-6.2); White Blood Count 4.6 K/mm3 (4.4-11.0)
== END | disposition home or self-care (01) ==
LOC: LAB 07:28
PROVIDERS: PCP Family Medicine; Referring Provider Psychiatry & Neurology Child & Adolescent Psychiatry; Visit Provider Psychiatry & Neurology Child & Adolescent Psychiatry
DX: Z79.899 Other long term (current) drug therapy (principal)
CPT/HCPCS: 36415; 85025

== ENCOUNTER → 2022-02-16 | Outpatient (CLI) | payer MEDICAID, SELFPAY ==
[2022-02-16 11:45] LABS: Absolute Lymphocyte Count 2.15 X10^3/uL (0.83-4.51); Absolute Neutrophil Count 1.9 X10^3/uL (2.0-7.7); Basophil# 0.01 X10^3/uL; Basophil% 0.2 % (0-1); Eosinophil# 0.06 X10^3/uL; Eosinophils% 1.3 % (0-5); Hematocrit 42.8 % (40-54); Hemoglobin 13.6 g/dL (13.0-16.5); Lymphocyte # 2.15 X10^3/ul (0.83-4.51); Lymphocyte % 46.9 % (19-41); Mean Corp Hgb Conc 31.8 g/dL (32-36); Mean Corpuscular Volume 91.3 fL (80-94); Mean Platelet Vol. 10.9 fl (6.2-12.0); Monocyte# 0.44 X10^3/uL; Monocyte% 9.6 % (0-10); NRBC Flagged by Analyzer 0 % (0-5); Neutrophil # 1.89 X10^3/uL (2.7-7.7); Neutrophil % 41.3 % (47-70); Platelet Count 103 K/mm3 (150-450); RBC Distribution Width CV 15.5 % (11.6-14.6); RBC Distribution Width SD 52.1 fl (35.1-43.9); Red Blood Count 4.69 M/mm3 (4.6-6.2); White Blood Count 4.6 K/mm3 (4.4-11.0)
== END | disposition home or self-care (01) ==
LOC: LAB 08:09
PROVIDERS: PCP Family Medicine; Visit Provider Psychiatry & Neurology Child & Adolescent Psychiatry
DX: Z79.899 Other long term (current) drug therapy (principal)
CPT/HCPCS: 36415; 85025

== ENCOUNTER → 2022-02-20 | Outpatient (CLI) | payer MEDICAID, SELFPAY ==
[2022-02-20 11:33] LABS: Absolute Lymphocyte Count 2.03 X10^3/uL (0.83-4.51); Absolute Neutrophil Count 2.8 X10^3/uL (2.0-7.7); Basophil# 0.03 X10^3/uL; Basophil% 0.5 % (0-1); Eosinophil# 0.06 X10^3/uL; Eosinophils% 1.1 % (0-5); Hematocrit 40.2 % (40-54); Lymphocyte # 2.03 X10^3/ul (0.83-4.51); Lymphocyte % 36.8 % (19-41); Mean Corp Hgb Conc 32.3 g/dL (32-36); Mean Corpuscular Hgb 29.3 pg (27.0-32.0); Mean Corpuscular Volume 90.5 fL (80-94); Mean Platelet Vol. 10.9 fl (6.2-12.0); Monocyte# 0.54 X10^3/uL; Monocyte% 9.8 % (0-10); NRBC Flagged by Analyzer 0 % (0-5); Neutrophil # 2.84 X10^3/uL (2.7-7.7); Neutrophil % 51.4 % (47-70); POSITIVE COUNT YES; Platelet Count 79 K/mm3 (150-450); RBC Distribution Width CV 15.3 % (11.6-14.6); RBC Distribution Width SD 50.8 fl (35.1-43.9); Red Blood Count 4.44 M/mm3 (4.6-6.2); White Blood Count 5.5 K/mm3 (4.4-11.0)
[2022-02-20 11:35] LABS: Differential Indicated SCAN CRITERIA MET
[2022-02-20 12:14] LABS: Platelet Estimate MOD DEC (ADEQ)
== END | disposition home or self-care (01) ==
LOC: LAB 09:23
PROVIDERS: PCP Family Medicine; Referring Provider Psychiatry & Neurology Child & Adolescent Psychiatry; Visit Provider Psychiatry & Neurology Child & Adolescent Psychiatry
DX: Z79.899 Other long term (current) drug therapy (principal)
CPT/HCPCS: 36415; 85025

== ENCOUNTER → 2022-02-22 | Outpatient (CLI) | payer MEDICAID, SELFPAY ==
[2022-02-22 11:02] LABS: Absolute Lymphocyte Count 2.03 X10^3/uL (0.83-4.51); Absolute Neutrophil Count 2.5 X10^3/uL (2.0-7.7); Basophil# 0.03 X10^3/uL; Basophil% 0.6 % (0-1); Eosinophil# 0.08 X10^3/uL; Eosinophils% 1.6 % (0-5); Hematocrit 42.3 % (40-54); Hemoglobin 13.5 g/dL (13.0-16.5); Lymphocyte # 2.03 X10^3/ul (0.83-4.51); Lymphocyte % 39.6 % (19-41); Mean Corp Hgb Conc 31.9 g/dL (32-36); Mean Corpuscular Hgb 29.4 pg (27.0-32.0); Mean Corpuscular Volume 92.2 fL (80-94); Mean Platelet Vol. 10.7 fl (6.2-12.0); Monocyte# 0.46 X10^3/uL; NRBC Flagged by Analyzer 0 % (0-5); Neutrophil # 2.49 X10^3/uL (2.7-7.7); Neutrophil % 48.6 % (47-70); POSITIVE COUNT YES; Platelet Count 80 K/mm3 (150-450); RBC Distribution Width CV 15.4 % (11.6-14.6); RBC Distribution Width SD 52.4 fl (35.1-43.9); Red Blood Count 4.59 M/mm3 (4.6-6.2); White Blood Count 5.1 K/mm3 (4.4-11.0)
== END | disposition home or self-care (01) ==
LOC: LAB 07:01
PROVIDERS: PCP Family Medicine; Referring Provider Psychiatry & Neurology Child & Adolescent Psychiatry; Visit Provider Psychiatry & Neurology Child & Adolescent Psychiatry
DX: Z79.899 Other long term (current) drug therapy (principal)
CPT/HCPCS: 36415; 85025

== ENCOUNTER → 2022-02-26 | Outpatient (CLI) | payer MEDICAID, SELFPAY ==
[2022-02-26 11:08] LABS: Absolute Neutrophil Count 3.8 X10^3/uL (2.0-7.7); Basophil# 0.02 X10^3/uL; Basophil% 0.3 % (0-1); Eosinophil# 0.21 X10^3/uL; Eosinophils% 3.5 % (0-5); Hematocrit 36.9 % (40-54); Hemoglobin 11.6 g/dL (13.0-16.5); Lymphocyte % 20.2 % (19-41); Mean Corp Hgb Conc 31.4 g/dL (32-36); Mean Corpuscular Hgb 29.1 pg (27.0-32.0); Mean Corpuscular Volume 92.5 fL (80-94); Mean Platelet Vol. 10.1 fl (6.2-12.0); Monocyte# 0.67 X10^3/uL; Monocyte% 11.3 % (0-10); Neutrophil # 3.83 X10^3/uL (2.7-7.7); Neutrophil % 64.4 % (47-70); POSITIVE COUNT YES; Platelet Count 86 K/mm3 (150-450); RBC Distribution Width CV 15.5 % (11.6-14.6); RBC Distribution Width SD 52.9 fl (35.1-43.9); Red Blood Count 3.99 M/mm3 (4.6-6.2)
== END | disposition home or self-care (01) ==
LOC: LAB 09:25
PROVIDERS: PCP Family Medicine; Visit Provider Psychiatry & Neurology Child & Adolescent Psychiatry
DX: Z79.899 Other long term (current) drug therapy (principal)
CPT/HCPCS: 36415; 85025

== ENCOUNTER → 2022-02-28 | Outpatient (CLI) | payer MEDICAID, SELFPAY ==
[2022-02-28 10:57] LABS: Absolute Lymphocyte Count 1.45 X10^3/uL (0.83-4.51); Absolute Neutrophil Count 2.5 X10^3/uL (2.0-7.7); Basophil# 0.02 X10^3/uL; Basophil% 0.4 % (0-1); Eosinophil# 0.21 X10^3/uL; Eosinophils% 4.4 % (0-5); Hematocrit 35.8 % (40-54); Hemoglobin 11.6 g/dL (13.0-16.5); Lymphocyte # 1.45 X10^3/ul (0.83-4.51); Lymphocyte % 30.4 % (19-41); Mean Corp Hgb Conc 32.4 g/dL (32-36); Mean Corpuscular Hgb 29.4 pg (27.0-32.0); Mean Corpuscular Volume 90.6 fL (80-94); Mean Platelet Vol. 9.8 fl (6.2-12.0); Monocyte# 0.56 X10^3/uL; Monocyte% 11.7 % (0-10); NRBC Flagged by Analyzer 0 % (0-5); Neutrophil # 2.51 X10^3/uL (2.7-7.7); Neutrophil % 52.7 % (47-70); POSITIVE COUNT YES; Platelet Count 92 K/mm3 (150-450); RBC Distribution Width SD 50.3 fl (35.1-43.9); Red Blood Count 3.95 M/mm3 (4.6-6.2); White Blood Count 4.8 K/mm3 (4.4-11.0)
== END | disposition home or self-care (01) ==
LOC: LAB 07:50
PROVIDERS: PCP Family Medicine; Referring Provider Psychiatry & Neurology Child & Adolescent Psychiatry; Visit Provider Psychiatry & Neurology Child & Adolescent Psychiatry
DX: Z79.899 Other long term (current) drug therapy (principal)
CPT/HCPCS: 36415; 85025

== ENCOUNTER → 2022-03-07 | Outpatient (CLI) | payer MEDICAID, SELFPAY ==
[2022-03-07 12:06] LABS: Absolute Lymphocyte Count 1.54 X10^3/uL (0.83-4.51); Absolute Neutrophil Count 2.4 X10^3/uL (2.0-7.7); Basophil# 0.03 X10^3/uL; Basophil% 0.6 % (0-1); Eosinophils% 2.1 % (0-5); Hemoglobin 11.1 g/dL (13.0-16.5); Lymphocyte # 1.54 X10^3/ul (0.83-4.51); Lymphocyte % 32.8 % (19-41); Mean Corp Hgb Conc 31.7 g/dL (32-36); Mean Corpuscular Hgb 29.1 pg (27.0-32.0); Mean Corpuscular Volume 91.9 fL (80-94); Mean Platelet Vol. 10.3 fl (6.2-12.0); Monocyte# 0.57 X10^3/uL; Monocyte% 12.1 % (0-10); NRBC Flagged by Analyzer 0 % (0-5); Neutrophil # 2.44 X10^3/uL (2.7-7.7); Platelet Count 103 K/mm3 (150-450); RBC Distribution Width CV 15.3 % (11.6-14.6); RBC Distribution Width SD 51.7 fl (35.1-43.9); Red Blood Count 3.81 M/mm3 (4.6-6.2); White Blood Count 4.7 K/mm3 (4.4-11.0)
[2022-03-07 12:14] LABS: ALB/GLOB Ratio 0.8 RATIO (0.9-2.4); AST(SGOT) 5 U/L (15-37); Alanine Aminotransfer ALT/SGPT 10 U/L (16-61); Albumin, Serum 2.7 g/dL (3.2-5.0); Alkaline Phosphatase 36 U/L (45-117); Anion Gap 6 (5-15); BUN 16 mg/dL (7-18); BUN/Creat Ratio 22.8 RATIO (10-20); Calcium,Total 8.9 mg/dL (8.5-10.1); Chloride 107 mmol/L (98-107); EST Glomerular Filtration Rate 132 mL/min (>60); Est Glom Filt Rate - Afr Amer 160 mL/min (>60); Globulin 3.5 g/dL (2.2-4.2); Glucose 88 mg/dL (74-106); Protein, Total 6.2 g/dL (6.4-8.2); Sodium Level 142 mmol/L (136-145); Valproic Acid (Depakene) Level 79 ug/mL (50-100)
== END | disposition home or self-care (01) ==
LOC: LAB 07:42
PROVIDERS: PCP Family Medicine; Referring Provider Psychiatry & Neurology Child & Adolescent Psychiatry; Visit Provider Psychiatry & Neurology Child & Adolescent Psychiatry
DX: Z79.899 Other long term (current) drug therapy (principal)
CPT/HCPCS: 36415; 80053; 80164; 85025

== ENCOUNTER → 2022-03-14 | Outpatient (CLI) | payer MEDICAID, SELFPAY ==
[2022-03-14 11:35] LABS: Absolute Lymphocyte Count 1.79 X10^3/uL (0.83-4.51); Basophil# 0.03 X10^3/uL; Basophil% 0.7 % (0-1); Eosinophil# 0.14 X10^3/uL; Eosinophils% 3.2 % (0-5); Hemoglobin 12.4 g/dL (13.0-16.5); Lymphocyte # 1.79 X10^3/ul (0.83-4.51); Lymphocyte % 41.1 % (19-41); Mean Corp Hgb Conc 31.8 g/dL (32-36); Mean Corpuscular Hgb 29.3 pg (27.0-32.0); Mean Corpuscular Volume 92.2 fL (80-94); Mean Platelet Vol. 10.4 fl (6.2-12.0); Monocyte% 9.2 % (0-10); NRBC Flagged by Analyzer 0 % (0-5); Neutrophil # 1.97 X10^3/uL (2.7-7.7); Neutrophil % 45.3 % (47-70); Platelet Count 146 K/mm3 (150-450); RBC Distribution Width CV 15.9 % (11.6-14.6); RBC Distribution Width SD 53.5 fl (35.1-43.9); Red Blood Count 4.23 M/mm3 (4.6-6.2); White Blood Count 4.4 K/mm3 (4.4-11.0)
== END | disposition home or self-care (01) ==
LOC: LAB 08:36
PROVIDERS: PCP Family Medicine; Referring Provider Psychiatry & Neurology Child & Adolescent Psychiatry; Visit Provider Psychiatry & Neurology Child & Adolescent Psychiatry
DX: Z79.899 Other long term (current) drug therapy (principal)
CPT/HCPCS: 36415; 85025

== ENCOUNTER → 2022-03-21 | Outpatient (CLI) | payer MEDICAID, SELFPAY ==
[2022-03-21 11:07] LABS: Absolute Lymphocyte Count 1.46 X10^3/uL (0.83-4.51); Absolute Neutrophil Count 1.4 X10^3/uL (2.0-7.7); Basophil# 0.02 X10^3/uL; Basophil% 0.6 % (0-1); Eosinophil# 0.09 X10^3/uL; Eosinophils% 2.7 % (0-5); Hematocrit 36.4 % (40-54); Hemoglobin 11.5 g/dL (13.0-16.5); Lymphocyte # 1.46 X10^3/ul (0.83-4.51); Lymphocyte % 43.3 % (19-41); Mean Corp Hgb Conc 31.6 g/dL (32-36); Mean Corpuscular Hgb 29.5 pg (27.0-32.0); Mean Corpuscular Volume 93.3 fL (80-94); Mean Platelet Vol. 10.5 fl (6.2-12.0); Monocyte# 0.36 X10^3/uL; Monocyte% 10.7 % (0-10); NRBC Flagged by Analyzer 0 % (0-5); Neutrophil # 1.43 X10^3/uL (2.7-7.7); Neutrophil % 42.4 % (47-70); Platelet Count 121 K/mm3 (150-450); RBC Distribution Width CV 15.6 % (11.6-14.6); RBC Distribution Width SD 53.9 fl (35.1-43.9); White Blood Count 3.4 K/mm3 (4.4-11.0)
== END | disposition home or self-care (01) ==
LOC: LAB 08:06
PROVIDERS: PCP Family Medicine; Referring Provider Psychiatry & Neurology Child & Adolescent Psychiatry; Visit Provider Psychiatry & Neurology Child & Adolescent Psychiatry
DX: Z79.899 Other long term (current) drug therapy (principal)
CPT/HCPCS: 36415; 85025

== ENCOUNTER → 2022-03-28 | Outpatient (CLI) | payer MEDICAID, SELFPAY ==
[2022-03-28 10:46] LABS: Absolute Lymphocyte Count 1.47 X10^3/uL (0.83-4.51); Absolute Neutrophil Count 2.6 X10^3/uL (2.0-7.7); Basophil# 0.02 X10^3/uL; Basophil% 0.4 % (0-1); Eosinophil# 0.07 X10^3/uL; Eosinophils% 1.5 % (0-5); Hemoglobin 11.9 g/dL (13.0-16.5); Lymphocyte # 1.47 X10^3/ul (0.83-4.51); Lymphocyte % 31.7 % (19-41); Mean Corp Hgb Conc 32.2 g/dL (32-36); Mean Corpuscular Hgb 29.9 pg (27.0-32.0); Mean Platelet Vol. 10.4 fl (6.2-12.0); Monocyte# 0.51 X10^3/uL; NRBC Flagged by Analyzer 0 % (0-5); Neutrophil # 2.55 X10^3/uL (2.7-7.7); Neutrophil % 55.2 % (47-70); Platelet Count 133 K/mm3 (150-450); RBC Distribution Width CV 15.7 % (11.6-14.6); RBC Distribution Width SD 53.7 fl (35.1-43.9); Red Blood Count 3.98 M/mm3 (4.6-6.2); White Blood Count 4.6 K/mm3 (4.4-11.0)
== END | disposition home or self-care (01) ==
LOC: LAB 07:49
PROVIDERS: PCP Family Medicine; Referring Provider Psychiatry & Neurology Child & Adolescent Psychiatry; Visit Provider Psychiatry & Neurology Child & Adolescent Psychiatry
DX: Z79.899 Other long term (current) drug therapy (principal)
CPT/HCPCS: 36415; 85025

== ENCOUNTER → 2022-04-04 | Outpatient (CLI) | payer MEDICAID, SELFPAY ==
[2022-04-04 11:34] LABS: Absolute Neutrophil Count 1.5 X10^3/uL (2.0-7.7); Basophil# 0.01 X10^3/uL; Basophil% 0.3 % (0-1); Eosinophil# 0.09 X10^3/uL; Eosinophils% 2.6 % (0-5); Hematocrit 38.6 % (40-54); Hemoglobin 12.4 g/dL (13.0-16.5); Lymphocyte % 40.6 % (19-41); Mean Corp Hgb Conc 32.1 g/dL (32-36); Mean Corpuscular Hgb 29.7 pg (27.0-32.0); Mean Corpuscular Volume 92.6 fL (80-94); Mean Platelet Vol. 10.5 fl (6.2-12.0); Monocyte% 11.6 % (0-10); NRBC Flagged by Analyzer 0 % (0-5); Neutrophil # 1.54 X10^3/uL (2.7-7.7); Neutrophil % 44.6 % (47-70); Platelet Count 144 K/mm3 (150-450); RBC Distribution Width CV 14.9 % (11.6-14.6); RBC Distribution Width SD 51.3 fl (35.1-43.9); Red Blood Count 4.17 M/mm3 (4.6-6.2); White Blood Count 3.5 K/mm3 (4.4-11.0)
[2022-04-04 11:44] LABS: Valproic Acid (Depakene) Level 108 ug/mL (50-100)
[2022-04-04 12:00] LABS: ALB/GLOB Ratio 0.9 RATIO (0.9-2.4); AST(SGOT) 8 U/L (15-37); Alanine Aminotransfer ALT/SGPT 7 U/L (16-61); Albumin, Serum 3.5 g/dL (3.2-5.0); Alkaline Phosphatase 42 U/L (45-117); Anion Gap 8 (5-15); BUN 15 mg/dL (7-18); BUN/Creat Ratio 18.9 RATIO (10-20); Calcium,Total 9.4 mg/dL (8.5-10.1); Chloride 108 mmol/L (98-107); Creatinine, Serum 0.79 mg/dL (0.70-1.30); EST Glomerular Filtration Rate 115 mL/min (>60); Est Glom Filt Rate - Afr Amer 139 mL/min (>60); Glucose 106 mg/dL (74-106); Potassium 3.9 mmol/L (3.5-5.1); Protein, Total 7.5 g/dL (6.4-8.2); Sodium Level 143 mmol/L (136-145)
== END | disposition home or self-care (01) ==
LOC: LAB 08:58
PROVIDERS: PCP Family Medicine; Referring Provider Psychiatry & Neurology Child & Adolescent Psychiatry; Visit Provider Psychiatry & Neurology Child & Adolescent Psychiatry
DX: Z79.899 Other long term (current) drug therapy (principal)
CPT/HCPCS: 36415; 80053; 80164; 85025

== ENCOUNTER → 2022-04-11 | Outpatient (CLI) | payer MEDICAID, SELFPAY ==
[2022-04-11 09:59] LABS: Absolute Lymphocyte Count 1.65 X10^3/uL (0.83-4.51); Absolute Neutrophil Count 2.9 X10^3/uL (2.0-7.7); Basophil# 0.02 X10^3/uL; Basophil% 0.4 % (0-1); Eosinophil# 0.09 X10^3/uL; Eosinophils% 1.7 % (0-5); Hematocrit 41.5 % (40-54); Hemoglobin 13.2 g/dL (13.0-16.5); Lymphocyte # 1.65 X10^3/ul (0.83-4.51); Mean Corp Hgb Conc 31.8 g/dL (32-36); Mean Corpuscular Hgb 29.7 pg (27.0-32.0); Mean Corpuscular Volume 93.3 fL (80-94); Mean Platelet Vol. 9.8 fl (6.2-12.0); Monocyte# 0.45 X10^3/uL; Monocyte% 8.7 % (0-10); NRBC Flagged by Analyzer 0 % (0-5); Neutrophil # 2.93 X10^3/uL (2.7-7.7); Neutrophil % 56.8 % (47-70); Platelet Count 175 K/mm3 (150-450); RBC Distribution Width SD 51.3 fl (35.1-43.9); Red Blood Count 4.45 M/mm3 (4.6-6.2); White Blood Count 5.2 K/mm3 (4.4-11.0)
== END | disposition home or self-care (01) ==
LOC: PR 08:52
PROVIDERS: PCP Family Medicine; Visit Provider Psychiatry & Neurology Child & Adolescent Psychiatry
DX: Z79.899 Other long term (current) drug therapy (principal)
CPT/HCPCS: 36415; 85025

== ENCOUNTER → 2022-04-18 | Outpatient (CLI) | payer MEDICAID, SELFPAY ==
[2022-04-18 10:16] LABS: Absolute Lymphocyte Count 1.13 X10^3/uL (0.83-4.51); Absolute Neutrophil Count 3.3 X10^3/uL (2.0-7.7); Basophil# 0.02 X10^3/uL; Basophil% 0.4 % (0-1); Eosinophil# 0.03 X10^3/uL; Eosinophils% 0.6 % (0-5); Hematocrit 38.7 % (40-54); Hemoglobin 12.8 g/dL (13.0-16.5); Lymphocyte # 1.13 X10^3/ul (0.83-4.51); Lymphocyte % 23.4 % (19-41); Mean Corp Hgb Conc 33.1 g/dL (32-36); Mean Corpuscular Hgb 30.8 pg (27.0-32.0); Monocyte# 0.34 X10^3/uL; Monocyte% 7.1 % (0-10); NRBC Flagged by Analyzer 0 % (0-5); Neutrophil # 3.29 X10^3/uL (2.7-7.7); Neutrophil % 68.3 % (47-70); Platelet Count 160 K/mm3 (150-450); RBC Distribution Width CV 14.3 % (11.6-14.6); RBC Distribution Width SD 49.1 fl (35.1-43.9); Red Blood Count 4.16 M/mm3 (4.6-6.2); White Blood Count 4.8 K/mm3 (4.4-11.0)
== END | disposition home or self-care (01) ==
LOC: LAB 08:56
PROVIDERS: PCP Family Medicine; Visit Provider Psychiatry & Neurology Child & Adolescent Psychiatry
DX: Z79.899 Other long term (current) drug therapy (principal)
CPT/HCPCS: 36415; 85025

== ENCOUNTER → 2022-04-25 | Outpatient (CLI) | payer MEDICAID, SELFPAY ==
[2022-04-25 11:52] LABS: Absolute Lymphocyte Count 1.72 X10^3/uL (0.83-4.51); Absolute Neutrophil Count 2.3 X10^3/uL (2.0-7.7); Basophil# 0.02 X10^3/uL; Basophil% 0.4 % (0-1); Eosinophil# 0.05 X10^3/uL; Eosinophils% 1.1 % (0-5); Hematocrit 37.7 % (40-54); Hemoglobin 12.1 g/dL (13.0-16.5); Lymphocyte # 1.72 X10^3/ul (0.83-4.51); Lymphocyte % 38.2 % (19-41); Mean Corp Hgb Conc 32.1 g/dL (32-36); Mean Corpuscular Volume 93.3 fL (80-94); Mean Platelet Vol. 11.2 fl (6.2-12.0); Monocyte% 8.9 % (0-10); NRBC Flagged by Analyzer 0 % (0-5); Neutrophil % 51.2 % (47-70); Platelet Count 104 K/mm3 (150-450); RBC Distribution Width SD 47.6 fl (35.1-43.9); Red Blood Count 4.04 M/mm3 (4.6-6.2); White Blood Count 4.5 K/mm3 (4.4-11.0)
== END | disposition home or self-care (01) ==
LOC: LAB 07:33
PROVIDERS: PCP Family Medicine; Referring Provider Psychiatry & Neurology Child & Adolescent Psychiatry; Visit Provider Psychiatry & Neurology Child & Adolescent Psychiatry
DX: Z79.899 Other long term (current) drug therapy (principal)
CPT/HCPCS: 36415; 85025

== ENCOUNTER → 2022-05-02 | Outpatient (CLI) | payer MEDICAID, SELFPAY ==
[2022-05-02 12:06] LABS: Absolute Lymphocyte Count 1.22 X10^3/uL (0.83-4.51); Absolute Neutrophil Count 1.9 X10^3/uL (2.0-7.7); Basophil# 0.01 X10^3/uL; Basophil% 0.3 % (0-1); Eosinophil# 0.02 X10^3/uL; Eosinophils% 0.6 % (0-5); Hematocrit 38.7 % (40-54); Hemoglobin 12.4 g/dL (13.0-16.5); Lymphocyte # 1.22 X10^3/ul (0.83-4.51); Lymphocyte % 34.1 % (19-41); Mean Corpuscular Hgb 29.7 pg (27.0-32.0); Mean Corpuscular Volume 92.8 fL (80-94); Mean Platelet Vol. 11.2 fl (6.2-12.0); Monocyte# 0.43 X10^3/uL; NRBC Flagged by Analyzer 0 % (0-5); Neutrophil # 1.89 X10^3/uL (2.7-7.7); Neutrophil % 52.7 % (47-70); Platelet Count 130 K/mm3 (150-450); RBC Distribution Width CV 13.9 % (11.6-14.6); RBC Distribution Width SD 47.3 fl (35.1-43.9); Red Blood Count 4.17 M/mm3 (4.6-6.2); White Blood Count 3.6 K/mm3 (4.4-11.0)
[2022-05-02 12:08] LABS: Valproic Acid (Depakene) Level 101 ug/mL (50-100)
[2022-05-02 12:10] LABS: ALB/GLOB Ratio 0.8 RATIO (0.9-2.4); AST(SGOT) 6 U/L (15-37); Alanine Aminotransfer ALT/SGPT 10 U/L (16-61); Albumin, Serum 3.3 g/dL (3.2-5.0); Alkaline Phosphatase 44 U/L (45-117); Anion Gap 8 (5-15); BUN 16 mg/dL (7-18); BUN/Creat Ratio 19.3 RATIO (10-20); Calcium,Total 9.6 mg/dL (8.5-10.1); Chloride 108 mmol/L (98-107); Creatinine, Serum 0.83 mg/dL (0.70-1.30); EST Glomerular Filtration Rate 109 mL/min (>60); Est Glom Filt Rate - Afr Amer 131 mL/min (>60); Globulin 4.1 g/dL (2.2-4.2); Glucose 98 mg/dL (74-106); Potassium 4.1 mmol/L (3.5-5.1); Protein, Total 7.4 g/dL (6.4-8.2); Sodium Level 142 mmol/L (136-145)
== END | disposition home or self-care (01) ==
LOC: LAB 08:15
PROVIDERS: PCP Family Medicine; Referring Provider Psychiatry & Neurology Child & Adolescent Psychiatry; Visit Provider Psychiatry & Neurology Child & Adolescent Psychiatry
DX: Z79.899 Other long term (current) drug therapy (principal)
CPT/HCPCS: 36415; 80053; 80164; 85025

== ENCOUNTER → 2022-05-09 | Outpatient (CLI) | payer MEDICAID, SELFPAY ==
[2022-05-09 10:36] LABS: Absolute Lymphocyte Count 1.95 X10^3/uL (0.83-4.51); Absolute Neutrophil Count 5.2 X10^3/uL (2.0-7.7); Basophil# 0.03 X10^3/uL; Basophil% 0.4 % (0-1); Eosinophil# 0.07 X10^3/uL; Eosinophils% 0.9 % (0-5); Hematocrit 41.2 % (40-54); Hemoglobin 13.1 g/dL (13.0-16.5); Lymphocyte # 1.95 X10^3/ul (0.83-4.51); Lymphocyte % 25.2 % (19-41); Mean Corp Hgb Conc 31.8 g/dL (32-36); Mean Corpuscular Hgb 29.8 pg (27.0-32.0); Mean Corpuscular Volume 93.6 fL (80-94); Mean Platelet Vol. 10.7 fl (6.2-12.0); Monocyte# 0.49 X10^3/uL; Monocyte% 6.3 % (0-10); NRBC Flagged by Analyzer 0 % (0-5); Neutrophil # 5.17 X10^3/uL (2.7-7.7); Neutrophil % 66.8 % (47-70); Platelet Count 153 K/mm3 (150-450); RBC Distribution Width SD 48.5 fl (35.1-43.9); White Blood Count 7.7 K/mm3 (4.4-11.0)
== END | disposition home or self-care (01) ==
LOC: LAB 07:49
PROVIDERS: PCP Family Medicine; Referring Provider Psychiatry & Neurology Child & Adolescent Psychiatry; Visit Provider Psychiatry & Neurology Child & Adolescent Psychiatry
DX: Z79.899 Other long term (current) drug therapy (principal)
CPT/HCPCS: 36415; 85025

== ENCOUNTER 2022-05-12 13:54 | Emergency (ER) | payer MEDICAID, SELFPAY ==
[2022-05-12] VITALS (8 sets, daily range): BP systolic 99–142; BP diastolic 64–96; PULSE 78–110; RESP 16–22; TEMP 36.9–37.3; O2SAT 95–99; BMI 25.9
--- NOTE | 2022-05-12 14:16 | CT_ITS ---
INDICATION: abd pain. PATIENT MRDD HELD DOWN ON TABLE EXAMINATION: CT Abdomen And Pelvis W/ Contrast Injection TECHNIQUE: Helically acquired images were obtained of the abdomen and pelvis after IV contrast. A radiation dose optimization technique was used for this scan. IV Contrast dosage and agent: IV 100mL [id number] Oral contrast: None. COMPARISON: 04/06/2021. FINDINGS: Visualized lung bases: Unremarkable Liver: Unremarkable Gallbladder: Unremarkable Spleen: Unremarkable Pancreas: Unremarkable Adrenal Glands: Unremarkable Kidneys: Unremarkable Vasculature: Unremarkable GI Tract: Large amount of retained stool in the colon with distention of the sigmoid colon and rectum measuring up to 7.2 cm in diameter.. Lymphadenopathy: None Peritoneum: No ascites. Bladder: Unremarkable Reproductive organs: The prostate is mildly enlarged. Bones/Soft tissues: No suspicious osseous or soft tissue lesions CT/Abdomen/Pelvis W IV Cont ONLY IMPRESSION: Very limited examination due to heavy motion artifact. Despite limitations: Large amount of fecal retention with marked dilatation of the sigmoid colon and rectum. Mild prostatomegaly. Correlate with PSA levels. Electronically Signed: Gio Teague MD at 16:27 EDT ,
--- NOTE | 2022-05-12 14:16 | CT_ITS ---
EXAMINATION : Head CT w/out contrast HISTORY : altered mental status COMPARISON : None. TECHNIQUE : Multiple contiguous axial images were obtained from the skull base to the vertex without intravenous contrast. A radiation dose optimization technique was used for this scan. FINDINGS : The ventricles and sulci are normal in size. There is no evidence for acute intracranial hemorrhage, mass effect, or midline shift. There is no extra-axial fluid collection. There is normal perez-white differentiation, without CT evidence of acute ischemia or infarct. The skull base and calvarium are unremarkable. The orbits are unremarkable. The paranasal sinuses are clear. The mastoid air cells are well-aerated. There is a 2.6 cm well-circumscribed calcified soft tissue lesion in the right parietal scalp. CT/Brain/Head without Contrast IMPRESSION: 2.6 cm calcified subcutaneous mass in the right parietal scalp appears benign. No acute intracranial abnormality. Electronically Signed: Gio Teague MD at 15:54 EDT ,
--- NOTE | 2022-05-12 14:17 | EKG12_ITS ---
Test Reason : GENERAL ILLNESS Blood Pressure : / mmHG Vent. Rate : 093 BPM Atrial Rate : 000 BPM P-R Int : 000 ms QRS Dur : 094 ms QT Int : 358 ms P-R-T Axes : 000 056 054 degrees QTc Int : 445 ms Normal sinus rhythm Abnormal ECG Confirmed by KERRI MORALES, KRISTEN ([id number]), features editor PA MARTINEZ ([id number]) on 05/14/2022 1:42:58 PM Referred By: BB Confirmed By:KRISTEN MANNING MD
--- NOTE | 2022-05-12 14:19 | EDS_ITS ---
HPI History of Present Illness Chief Complaint: Other, Pain/Inj Informant: family (2 brothers) Onset/Context/Timing Onset: Weeks (1) Narrative Narrative: Gradual onset of agitation and pain for the past week. Patient states that his legs hurt, continues to repeat that. At times he states that his abdomen hurts. He has a history of MR as well as schizophrenia. All of his medications are mental health medications; about 1 week ago, his closet pain dose was decreased, taking away the morning dose, due to an abnormal white blood count according to the family. He was put on pantoprazole because a couple weeks ago he had a piece of an apple stuck in his throat and he went to an outside hospital where he had an EGD, and they saw what family describes as a lot of esophagitis/gastritis. They have seen no bleeding that they know of recently. Patient has been eating and drinking although decreased in the last 2 or 3 days, he is able to swallow however but it is difficult for him to get things to go down. No vomiting. They state at times due to his mental health disorder, he does perseverate on 1 particular issue such as his hand hurting, for days after the fact. History and exam are significantly limited since the patient is not able to answer questions, follow commands, or provide any history. [facility] Medical History (Updated 05/12/22 @ 18:[address] Oscar Kaur MD) Bipolar 1 disorder Debility Gastroparesis GERD (gastroesophageal reflux disease) Hypercalcemia Mental disability Severe malnutrition Thrombocytopenia Home Medications buspirone 15 mg tablet 15 mg PO TID mood 04/18/18 [History Last Taken 04/06/21] clozapine 100 mg tablet 100 mg PO QHS mood 04/18/18 [History Last Taken 04/05/21] clozapine 50 mg tablet 50 mg PO DAILY mood 04/18/18 [History Last Taken 04/06/21] divalproex 500 mg tablet,delayed release 500 mg PO BID mood 04/18/18 [History Last Taken 04/06/21] divalproex 250 mg tablet,delayed release 250 mg PO BREAKFAST mood 07/17/18 [History Last Taken 04/06/21] diaper,brief,adult,disposable (Briefs) #10 ea 12/05/20 [Rx Last Taken Unknown] sennosides 8.6 mg-docusate sodium 50 mg tablet (Stool Softener-Stimulant Laxative) 1 tab PO BID #0 tabs 12/05/20 [Rx Last Taken 04/06/21] clonazepam 0.5 mg tablet 0.5 mg PO BID ANXIETY 04/06/21 [History Last Taken 04/06/21] oxybutynin chloride 10 mg tablet,extended release 24 hr 10 mg PO DAILY BLADDER 04/06/21 [History Last Taken 04/06/21] quetiapine 25 mg tablet (Seroquel) 25 mg PO BID MOOD 04/06/21 [History Last Taken 04/06/21] pantoprazole 40 mg tablet,delayed release 40 mg PO QAM #30 tabs 06/23/21 [Rx Last Taken Unknown] metoclopramide HCl 5 mg tablet 5 mg PO TID #90 tabs 08/18/21 [Rx Last Taken Unknown] Allergy/AdvReac Type Severity Reaction Status Date / Time No Known Allergies Allergy Verified 05/12/22 13:59 Social History household members: family Smoking Status: Never smoker alcohol intake: never EXAM Physical Exam Const Vital Signs: 05/12/22 13:56 05/12/22 14:28 05/12/22 13:55 Temperature 99.2 F H Temperature Source Temporal Pulse Rate 110 H 108 H Respiratory Rate 20 H 20 H Respiratory Effort Respiratory Pattern Blood Pressure 142/89 H 129/64 H Blood Pressure Mean 106 85 Pulse Ox 95 99 Oxygen Delivery Method Room Air Room Air Room Air 05/12/22 13:55 05/12/22 15:55 Temperature Temperature Source Pulse Rate 78 Respiratory Rate 16 Respiratory Effort Normal Respiratory Pattern Normal Blood Pressure 138/78 H Blood Pressure Mean 98 Pulse Ox 99 Oxygen Delivery Method Room Air Positive well nourished and well developed General Appearance ED: well developed HEENT Reports dry mucous membranes normocephalic and atraumatic Mouth ED: Yes dry mucous membranes Mouth: dry mucous membranes Eyes PERRL and EOMs intact bilaterally Neck full ROM, no lymphadenopathy and supple Resp normal respiratory effort and clear to auscultation bilaterally Cardio regular rate, regular rhythm and no murmurs Rate: tachycardic GI non-tender and non-distended Auscultation: normoactive bowel sounds Palpation: soft Back/Spine no CVA tenderness General Back: other FROM Extremity normal to inspection Extremity Narrative: All compartments soft and nondistended. Full range of motion throughout all 4 extremities. Normal 2+/4 radial and dorsalis pedis pulses. Minor old contusion just superior to the left patella anterior distal thigh, nontender. No other signs of trauma. General Extremety ED: Negative for edema or pulses abnormal General Extremity: Negative for edema or pulses abnormal Neuro CN's II-XII intact bilaterally and no sensory deficits noted Neuro Narrative: Limited evaluation but moving all 4 extremities well. High tone/stiff extremities, especially in the legs. Downgoing toes, no clonus. Hyporeflexic. Sensorium / Orientation: awake and alert Motor Exam: strength 5/5 throughout Psych Psych Narrative: Moaning, agitated, saying ....... hurts.... where hurts is the only word that is intelligible. Attitude: agitated Skin no rashes or lesions noted and no wounds MDM MDM MDM Narrative Medical decision making narrative: This patient has trouble mentating at baseline, making it difficult to assess him for changes in mental status. He is very agitated. My concern is that his stiffness, low-grade temperature, mild tachycardia and tachypnea which may be due to pain, and hyporeflexia in combination with all of his psychiatric medications may indicate neuroleptic malignant syndrome. At this time he does not have any briana autonomic instability that I have seen, nor has he had any definite high fevers. I reviewed his labs. He has a mild lactic acidosis which is nonspecific, he does not have an elevated CPK and the rest of his labs really are unremarkable. He does not have what seems to be serotonin syndrome and he really is not on a combination of medications that would be likely to cause that. I am not able to rule in or rule out NMS, and if he has this and his psychiatric medications are increased my concern is that it could be potentially life-threatening. In the meantime, I have disallowed family to give him his psychiatric medications and in place for his agitation I have given him IV Ativan and 2.5 mg/kg of dantrolene empirically. I discussed with hospitalist, there is concern that we do not have the ability to consult psychiatry here which I certainly sympathize with. Therefore I tried to transfer him to other hospitals, [facility] has psychiatry but they have no available beds. [facility] in [place] both do not have inpatient psychiatry to consult. Therefore discussed with [facility] Yomaira Marin. While awaiting a callback, I received a call back from the patient's psychiatrist Dr. Jahaira Whitney, who I attempted to contact earlier. She does not have inpatient privileges anywhere but agrees with the above plan. She states she has been treating the patient as an outpatient for some time, and having significant difficulty managing his psychiatric issues and agitation. Treating with Clozaril has been complicated with leukopenia and neutropenia, so he has been having CBCs every week for the last couple months, now his ANC is better, it was in the 1000 range at 1 point, today it is 3300. She would like to get him off of it but has been having difficulty managing his symptoms with other medications in the meantime. We both think that admission to sort this out would be reasonable as the family is having increasing difficulty managing him at home right now. At this time, the patient has had dantrolene and actually is doing much better without the need for more Ativan. History & Record Review Discussion w/independent historian: Patient and Family (x2) Lab Data Attestation: I reviewed the patient's lab results. Labs: Laboratory Results - last 24 hr 05/12/22 05/12/22 05/12/22 14:25 14:25 14:25 WBC 4.4 RBC 4.03 L Hgb 12.4 L Hct 36.5 L MCV 90.6 MCH 30.8 MCHC 34.0 D RDW Std Deviation 46.2 H RDW Coeff of Adrian 13.8 Plt Count 146 L MPV 10.3 Immature Gran % (Auto) 0.200 Neut % (Auto) 74.1 H Lymph % (Auto) 20.7 [place] % (Auto) 4.3 Eos % (Auto) 0.2 Baso % (Auto) 0.5 Absolute Neuts (auto) 3.3 Absolute Lymphs (auto) 0.91 Nucleated RBC % 0 PT 14.2 INR 1.1 APTT 26.9 Sodium 140 Potassium 4.0 Chloride 113 H Carbon Dioxide 20.0 L Anion Gap 7 BUN 22 H Creatinine 0.88 Estim Creat Clear Calc 118.84 Est GFR (MDRD) Af Amer 123 Est GFR (MDRD) Non-Af 101 BUN/Creatinine Ratio 24.9 H Glucose 106 Lactic Acid Calcium 9.3 Total Bilirubin 0.30 AST 7 L ALT 12 L Alkaline Phosphatase 41 L Total Creatine Kinase 60 Total Protein 7.3 Albumin 3.6 Globulin 3.7 Albumin/Globulin Ratio 1.0 05/12/22 14:25 WBC RBC Hgb Hct MCV MCH MCHC RDW Std Deviation RDW Coeff of Adrian Plt Count MPV Immature Gran % (Auto) Neut % (Auto) Lymph % (Auto) [place] % (Auto) Eos % (Auto) Baso % (Auto) Absolute Neuts (auto) Absolute Lymphs (auto) Nucleated RBC % PT INR APTT Sodium Potassium Chloride Carbon Dioxide Anion Gap BUN Creatinine Estim Creat Clear Calc Est GFR (MDRD) Af Amer Est GFR (MDRD) Non-Af BUN/Creatinine Ratio Glucose Lactic Acid 3.1 H* Calcium Total Bilirubin AST ALT Alkaline Phosphatase Total Creatine Kinase Total Protein Albumin Globulin Albumin/Globulin Ratio Radiography Chest X-Ray - ED: 1 View, Read by ED Physician, No Acute Disease and No Infiltrates Diagnostic Testing: Clinical Impression(s) from Imaging Studies Abdomen/Pelvis CT 05/12/22 14:16 IMPRESSION: Very limited examination due to heavy motion artifact. Despite limitations: Large amount of fecal retention with marked dilatation of the sigmoid colon and rectum. Mild prostatomegaly. Correlate with PSA levels. Electronically Signed: Gio Teague MD at 16:27 EDT , Brain CT 05/12/22 14:16 IMPRESSION: 2.6 cm calcified subcutaneous mass in the right parietal scalp appears benign. No acute intracranial abnormality. Electronically Signed: Gio Teague MD at 15:54 EDT , Chest X-Ray 05/12/22 15:19 IMPRESSION: No acute radiographic abnormalities. Electronically Signed: Gio Teague MD at 16:21 EDT , I reviewed CT scans of brain and abdomen/pelvis, they do not appear to show any acute but there is a large fecal impaction. My interpretation of the CTs agrees with that of the radiologist. Rhythm Strip Rhythm Strip: Sinus Tach Rate: 105 Ectopy: None EKG Initial EKG: Attestation: I personally reviewed and interpreted this EKG as follows: Interpretation: Sinus Rhythm and No Acute Injury Pattern Comments: Limited due to artifact in multiple leads, otherwise unremarkable Management Discussion w/another healthcare provider: Hospitalist (Dr. Villarreal: would be better served at facility that has ability to consult psychiatry) and Other (Dr. Whitney, pt's psychiatrist) Discharge Plan Triage Chief Complaint: Other, Pain/Inj ED Provider: Oscar Kaur Dx/Rx/DC Orders Clinical Impression: Agitation, Encephalopathy, Bipolar disorder Prescriptions: No Action pantoprazole 40 mg tablet,delayed release (DR/EC) 40 mg PO QAM Qty: 30 11RF metoclopramide HCl 5 mg tablet 5 mg PO TID Qty: 90 11RF Rx Instructions: administer 30 minutes before meals clozapine 100 MG tablet 100 mg PO QHS divalproex 500 MG tablet,delayed release (DR/EC) 500 mg PO BID buspirone 15 MG tablet 15 mg PO TID clozapine 50 MG tablet 50 mg PO DAILY divalproex 250 MG tablet 250 mg PO BREAKFAST Label Comments: TAKE ONE TABLET BY MOUTH EVERY MORNING sennosides-docusate sodium [Stool Softener-Stimulant Laxat] 8.6-50 mg Tablet 1 tab PO BID Qty: 0 0RF (DME) Briefs Misc See Rx Instructions .ROUTE .MEDSUPPLY Qty: 10 12RF Rx Instructions: As directed oxybutynin chloride 10 mg tablet extended release 24hr 10 mg PO DAILY clonazepam 0.5 mg tablet 0.5 mg PO BID quetiapine [Seroquel] 25 mg tablet 25 mg PO BID Primary Care Provider: Carlo Wellington Referrals: Carlo Wellington DO [Primary Care Provider] - Disposition Disposition: Acute Care Hospital
[2022-05-12] MEDS: LORazepam 2 MG/ML Syringe 1 MG IV ×2 (14:36→19:39)
[2022-05-12] MEDS: 0.9% Normal Saline 1,000 ML 999 ML IV (14:36)
[2022-05-12 14:49] LABS: Absolute Lymphocyte Count 0.91 X10^3/uL (0.83-4.51); Absolute Neutrophil Count 3.3 X10^3/uL (2.0-7.7); Basophil# 0.02 X10^3/uL; Basophil% 0.5 % (0-1); Eosinophil# 0.01 X10^3/uL; Eosinophils% 0.2 % (0-5); Hematocrit 36.5 % (40-54); Hemoglobin 12.4 g/dL (13.0-16.5); Lymphocyte # 0.91 X10^3/ul (0.83-4.51); Lymphocyte % 20.7 % (19-41); Mean Corpuscular Hgb 30.8 pg (27.0-32.0); Mean Corpuscular Volume 90.6 fL (80-94); Mean Platelet Vol. 10.3 fl (6.2-12.0); Monocyte# 0.19 X10^3/uL; Monocyte% 4.3 % (0-10); NRBC Flagged by Analyzer 0 % (0-5); Neutrophil # 3.26 X10^3/uL (2.7-7.7); Neutrophil % 74.1 % (47-70); Platelet Count 146 K/mm3 (150-450); RBC Distribution Width CV 13.8 % (11.6-14.6); RBC Distribution Width SD 46.2 fl (35.1-43.9); Red Blood Count 4.03 M/mm3 (4.6-6.2); White Blood Count 4.4 K/mm3 (4.4-11.0)
[2022-05-12 14:59] LABS: International Normalized Ratio 1.1; Prothrombin Time (Protime)PT. 14.2 SECONDS (11.7-14.9)
[2022-05-12 15:00] LABS: Partial Thromboplast Time 26.9 Seconds (24.1-36.2)
--- NOTE | 2022-05-12 15:19 | RAD_ITS ---
INDICATION: fever EXAMINATION/TECHNIQUE: X-RAY - XR Chest 1 View COMPARISON: 12/12/2020. FINDINGS: The lungs are clear. The cardiomediastinal silhouette is unremarkable. No pleural effusion or pneumothorax. Degenerative changes of the thoracic spine. RAD/Chest 1 View (Portable) IMPRESSION: No acute radiographic abnormalities. Electronically Signed: Gio Teague MD at 16:21 EDT ,
[2022-05-12 15:24] LABS: AST(SGOT) 7 U/L (15-37); Alanine Aminotransfer ALT/SGPT 12 U/L (16-61); Albumin, Serum 3.6 g/dL (3.2-5.0); Alkaline Phosphatase 41 U/L (45-117); Anion Gap 7 (5-15); BUN 22 mg/dL (7-18); BUN/Creat Ratio 24.9 RATIO (10-20); CPK Total, Creatine Kinase 60 U/L (39-308); Calcium,Total 9.3 mg/dL (8.5-10.1); Chloride 113 mmol/L (98-107); Creatinine, Serum 0.88 mg/dL (0.70-1.30); EST Glomerular Filtration Rate 101 mL/min (>60); Est Glom Filt Rate - Afr Amer 123 mL/min (>60); Estimated Creatinine Clearance 118.84 ml/min; Globulin 3.7 g/dL (2.2-4.2); Glucose 106 mg/dL (74-106); Protein, Total 7.3 g/dL (6.4-8.2); Sodium Level 140 mmol/L (136-145)
[2022-05-12 15:37] LABS: Lactic Acid 3.1 mmol/L (0.4-1.9)
--- NOTE | 2022-05-12 17:30 | ED.RN ---
dr. Kaur states to hold of on additional Ativan until pt. needs it.
[2022-05-12 18:42] LABS: Reflex Lactate? Y
[2022-05-12 19:37] LABS: Bacteria 0 SEEN /hpf (None Seen); Mucous, Urine 0 SEEN /hpf (<or=2+); Red Blood Cells-Urine 0 SEEN /hpf (0-5); Squamous Epithelial Cells - UA 0 SEEN /hpf (0-5); White Blood Cells 0 SEEN /hpf (0-5)
[2022-05-12 19:38] LABS: Color, Urine Yellow (Yellow); Glucose, Dipstick Normal (Normal); Ketone-Dipstick 5 mg/dl (Negative); Leukocyte Esterase-Dipstick Negative /ul (Negative); Nitrite-Dipstick Negative (Negative); Occult Blood-Urine Negative /ul (Negative); Protein-Dipstick Negative (Negative); Specific Gravity, Urine 1.015 (1.002-1.030); Urine Bilirubin Dipstick Negative (Negative); Urine Clarity Clear (Clear); Urine Urobilinogen Normal (Normal)
== END 2022-05-12 21:57 | disposition short-term general hospital (02) ==
PROVIDERS: Emergency Provider Emergency Medicine; PCP Family Medicine; Visit Provider Emergency Medicine
DX: F31.9 Bipolar disorder, unspecified (principal); G93.40 Encephalopathy, unspecified; Z79.899 Other long term (current) drug therapy
CPT/HCPCS: 70450; 71045; 74177; 80053; 81001; 82550; 83605; 85025; 85610; 85730; 87040; 87086; 87088; 87428; 93005; 96361; 96374; 96375; 99285; J7030; Q9967; A4216

== ENCOUNTER → 2022-05-23 | Outpatient (CLI) | payer MEDICAID, SELFPAY ==
[2022-05-23 11:28] LABS: Absolute Lymphocyte Count 1.47 X10^3/uL (0.83-4.51); Absolute Neutrophil Count 4.7 X10^3/uL (2.0-7.7); Basophil# 0.02 X10^3/uL; Basophil% 0.3 % (0-1); Eosinophil# 0.04 X10^3/uL; Eosinophils% 0.6 % (0-5); Hematocrit 37.6 % (40-54); Hemoglobin 12.4 g/dL (13.0-16.5); Lymphocyte # 1.47 X10^3/ul (0.83-4.51); Lymphocyte % 21.1 % (19-41); Mean Corpuscular Hgb 30.4 pg (27.0-32.0); Mean Corpuscular Volume 92.2 fL (80-94); Mean Platelet Vol. 10.3 fl (6.2-12.0); NRBC Flagged by Analyzer 0 % (0-5); Neutrophil # 4.72 X10^3/uL (2.7-7.7); Neutrophil % 67.7 % (47-70); Platelet Count 187 K/mm3 (150-450); RBC Distribution Width CV 14.2 % (11.6-14.6); RBC Distribution Width SD 48.4 fl (35.1-43.9); Red Blood Count 4.08 M/mm3 (4.6-6.2)
== END | disposition home or self-care (01) ==
LOC: LAB 08:37
PROVIDERS: PCP Family Medicine; Referring Provider Psychiatry & Neurology Child & Adolescent Psychiatry; Visit Provider Psychiatry & Neurology Child & Adolescent Psychiatry
DX: Z79.899 Other long term (current) drug therapy (principal)
CPT/HCPCS: 36415; 85025

== ENCOUNTER → 2022-05-30 | Outpatient (CLI) | payer MEDICAID, SELFPAY ==
[2022-05-30 10:49] LABS: Absolute Lymphocyte Count 1.06 X10^3/uL (0.83-4.51); Absolute Neutrophil Count 3.7 X10^3/uL (2.0-7.7); Basophil# 0.01 X10^3/uL; Basophil% 0.2 % (0-1); Eosinophil# 0.09 X10^3/uL; Eosinophils% 1.7 % (0-5); Hematocrit 38.5 % (40-54); Hemoglobin 12.5 g/dL (13.0-16.5); Lymphocyte # 1.06 X10^3/ul (0.83-4.51); Lymphocyte % 19.6 % (19-41); Mean Corp Hgb Conc 32.5 g/dL (32-36); Mean Corpuscular Hgb 29.8 pg (27.0-32.0); Mean Corpuscular Volume 91.9 fL (80-94); Mean Platelet Vol. 10.4 fl (6.2-12.0); Monocyte# 0.54 X10^3/uL; NRBC Flagged by Analyzer 0 % (0-5); Neutrophil # 3.69 X10^3/uL (2.7-7.7); Neutrophil % 68.1 % (47-70); Platelet Count 143 K/mm3 (150-450); RBC Distribution Width CV 14.1 % (11.6-14.6); RBC Distribution Width SD 47.8 fl (35.1-43.9); Red Blood Count 4.19 M/mm3 (4.6-6.2); White Blood Count 5.4 K/mm3 (4.4-11.0)
== END | disposition home or self-care (01) ==
LOC: LAB 08:04
PROVIDERS: PCP Family Medicine; Referring Provider Psychiatry & Neurology Child & Adolescent Psychiatry; Visit Provider Psychiatry & Neurology Child & Adolescent Psychiatry
DX: Z79.899 Other long term (current) drug therapy (principal)
CPT/HCPCS: 36415; 85025

== ENCOUNTER → 2022-06-06 | Outpatient (CLI) | payer MEDICAID, SELFPAY ==
[2022-06-06 11:44] LABS: Absolute Lymphocyte Count 1.68 X10^3/uL (0.83-4.51); Absolute Neutrophil Count 3.1 X10^3/uL (2.0-7.7); Basophil# 0.02 X10^3/uL; Basophil% 0.4 % (0-1); Eosinophils% 3.7 % (0-5); Hemoglobin 13.1 g/dL (13.0-16.5); Lymphocyte # 1.68 X10^3/ul (0.83-4.51); Lymphocyte % 30.8 % (19-41); Mean Corpuscular Hgb 29.8 pg (27.0-32.0); Mean Corpuscular Volume 93.4 fL (80-94); Mean Platelet Vol. 10.2 fl (6.2-12.0); Monocyte# 0.45 X10^3/uL; Monocyte% 8.3 % (0-10); NRBC Flagged by Analyzer 0 % (0-5); Neutrophil # 3.09 X10^3/uL (2.7-7.7); Neutrophil % 56.6 % (47-70); Platelet Count 180 K/mm3 (150-450); RBC Distribution Width CV 14.1 % (11.6-14.6); RBC Distribution Width SD 48.7 fl (35.1-43.9); Red Blood Count 4.39 M/mm3 (4.6-6.2); White Blood Count 5.5 K/mm3 (4.4-11.0)
[2022-06-06 12:09] LABS: Valproic Acid (Depakene) Level 79 ug/mL (50-100)
[2022-06-06 12:10] LABS: ALB/GLOB Ratio 0.9 RATIO (0.9-2.4); AST(SGOT) 11 U/L (15-37); Alanine Aminotransfer ALT/SGPT 13 U/L (16-61); Albumin, Serum 3.3 g/dL (3.2-5.0); Alkaline Phosphatase 49 U/L (45-117); Anion Gap 4 (5-15); BUN 17 mg/dL (7-18); BUN/Creat Ratio 21.9 RATIO (10-20); Calcium,Total 9.6 mg/dL (8.5-10.1); Chloride 107 mmol/L (98-107); Creatinine, Serum 0.78 mg/dL (0.70-1.30); EST Glomerular Filtration Rate 117 mL/min (>60); Est Glom Filt Rate - Afr Amer 142 mL/min (>60); Globulin 3.6 g/dL (2.2-4.2); Glucose 102 mg/dL (74-106); Potassium 4.3 mmol/L (3.5-5.1); Protein, Total 6.9 g/dL (6.4-8.2); Sodium Level 138 mmol/L (136-145)
== END | disposition home or self-care (01) ==
LOC: LAB 08:51
PROVIDERS: PCP Family Medicine; Referring Provider Psychiatry & Neurology Child & Adolescent Psychiatry; Visit Provider Psychiatry & Neurology Child & Adolescent Psychiatry
DX: Z79.899 Other long term (current) drug therapy (principal)
CPT/HCPCS: 36415; 80053; 80164; 85025

== ENCOUNTER → 2022-06-13 | Outpatient (CLI) | payer MEDICAID, SELFPAY ==
[2022-06-13 11:29] LABS: Absolute Lymphocyte Count 1.27 X10^3/uL (0.83-4.51); Absolute Neutrophil Count 3.7 X10^3/uL (2.0-7.7); Basophil# 0.03 X10^3/uL; Basophil% 0.5 % (0-1); Eosinophil# 0.15 X10^3/uL; Eosinophils% 2.6 % (0-5); Hematocrit 39.6 % (40-54); Lymphocyte # 1.27 X10^3/ul (0.83-4.51); Mean Corp Hgb Conc 32.8 g/dL (32-36); Mean Corpuscular Hgb 30.2 pg (27.0-32.0); Mean Corpuscular Volume 92.1 fL (80-94); Mean Platelet Vol. 9.9 fl (6.2-12.0); Monocyte% 10.4 % (0-10); NRBC Flagged by Analyzer 0 % (0-5); Neutrophil # 3.72 X10^3/uL (2.7-7.7); Neutrophil % 64.3 % (47-70); Platelet Count 193 K/mm3 (150-450); RBC Distribution Width CV 14.3 % (11.6-14.6); RBC Distribution Width SD 48.3 fl (35.1-43.9); White Blood Count 5.8 K/mm3 (4.4-11.0)
[2022-06-13 11:57] LABS: Valproic Acid (Depakene) Level 70 ug/mL (50-100)
== END | disposition home or self-care (01) ==
PROVIDERS: PCP Family Medicine; Referring Provider Student in an Organized Health Care Education/Training Program; Visit Provider Student in an Organized Health Care Education/Training Program
DX: Z79.899 Other long term (current) drug therapy (principal)
CPT/HCPCS: 36415; 80164; 85025

== ENCOUNTER → 2022-06-20 | Outpatient (CLI) | payer MEDICAID, SELFPAY ==
[2022-06-20 10:12] LABS: Absolute Lymphocyte Count 1.44 X10^3/uL (0.83-4.51); Absolute Neutrophil Count 4.3 X10^3/uL (2.0-7.7); Basophil# 0.02 X10^3/uL; Basophil% 0.3 % (0-1); Eosinophil# 0.05 X10^3/uL; Eosinophils% 0.8 % (0-5); Hematocrit 37.4 % (40-54); Hemoglobin 12.3 g/dL (13.0-16.5); Lymphocyte # 1.44 X10^3/ul (0.83-4.51); Lymphocyte % 22.6 % (19-41); Mean Corp Hgb Conc 32.9 g/dL (32-36); Mean Corpuscular Hgb 29.9 pg (27.0-32.0); Mean Platelet Vol. 9.9 fl (6.2-12.0); Monocyte# 0.53 X10^3/uL; Monocyte% 8.3 % (0-10); NRBC Flagged by Analyzer 0 % (0-5); Neutrophil # 4.31 X10^3/uL (2.7-7.7); Neutrophil % 67.5 % (47-70); Platelet Count 194 K/mm3 (150-450); RBC Distribution Width CV 14.2 % (11.6-14.6); RBC Distribution Width SD 47.8 fl (35.1-43.9); Red Blood Count 4.11 M/mm3 (4.6-6.2); White Blood Count 6.4 K/mm3 (4.4-11.0)
== END | disposition home or self-care (01) ==
LOC: LAB 08:20
PROVIDERS: Student in an Organized Health Care Education/Training Program; PCP Family Medicine; Visit Provider Family Medicine
DX: Z51.81 Encounter for therapeutic drug level monitoring (principal); F31.9 Bipolar disorder, unspecified; Z79.899 Other long term (current) drug therapy
CPT/HCPCS: 36415; 85025

== ENCOUNTER → 2022-06-27 | Outpatient (CLI) | payer MEDICAID, SELFPAY ==
[2022-06-27 11:20] LABS: Absolute Lymphocyte Count 1.19 X10^3/uL (0.83-4.51); Basophil# 0.03 X10^3/uL; Basophil% 0.4 % (0-1); Eosinophil# 0.07 X10^3/uL; Hematocrit 38.9 % (40-54); Hemoglobin 12.7 g/dL (13.0-16.5); Lymphocyte # 1.19 X10^3/ul (0.83-4.51); Lymphocyte % 16.7 % (19-41); Mean Corp Hgb Conc 32.6 g/dL (32-36); Mean Corpuscular Hgb 30.2 pg (27.0-32.0); Mean Corpuscular Volume 92.6 fL (80-94); Mean Platelet Vol. 9.9 fl (6.2-12.0); Monocyte# 0.83 X10^3/uL; Monocyte% 11.6 % (0-10); NRBC Flagged by Analyzer 0 % (0-5); Platelet Count 223 K/mm3 (150-450); RBC Distribution Width CV 14.5 % (11.6-14.6); RBC Distribution Width SD 49.1 fl (35.1-43.9); White Blood Count 7.1 K/mm3 (4.4-11.0)
== END | disposition home or self-care (01) ==
LOC: LAB 08:57
PROVIDERS: PCP Family Medicine; Referring Provider Student in an Organized Health Care Education/Training Program; Visit Provider Student in an Organized Health Care Education/Training Program
DX: Z51.81 Encounter for therapeutic drug level monitoring (principal); F31.9 Bipolar disorder, unspecified
CPT/HCPCS: 36415; 85025

== ENCOUNTER → 2022-07-04 | Outpatient (REF) | payer MEDICAID, SELFPAY ==
[2022-07-04 11:27] LABS: Absolute Lymphocyte Count 1.29 X10^3/uL (0.83-4.51); Absolute Neutrophil Count 4.6 X10^3/uL (2.0-7.7); Basophil# 0.03 X10^3/uL; Basophil% 0.5 % (0-1); Eosinophil# 0.08 X10^3/uL; Eosinophils% 1.2 % (0-5); Hematocrit 39.7 % (40-54); Hemoglobin 12.3 g/dL (13.0-16.5); Lymphocyte # 1.29 X10^3/ul (0.83-4.51); Lymphocyte % 19.9 % (19-41); Mean Corpuscular Hgb 29.6 pg (27.0-32.0); Mean Corpuscular Volume 95.7 fL (80-94); Mean Platelet Vol. 10.2 fl (6.2-12.0); Monocyte# 0.49 X10^3/uL; Monocyte% 7.6 % (0-10); NRBC Flagged by Analyzer 0 % (0-5); Neutrophil # 4.56 X10^3/uL (2.7-7.7); Neutrophil % 70.5 % (47-70); Platelet Count 135 K/mm3 (150-450); RBC Distribution Width CV 14.4 % (11.6-14.6); RBC Distribution Width SD 50.5 fl (35.1-43.9); Red Blood Count 4.15 M/mm3 (4.6-6.2); White Blood Count 6.5 K/mm3 (4.4-11.0)
== END | disposition home or self-care (01) ==
LOC: LAB 09:25
PROVIDERS: PCP Family Medicine; Visit Provider Student in an Organized Health Care Education/Training Program
DX: Z51.81 Encounter for therapeutic drug level monitoring (principal); F31.9 Bipolar disorder, unspecified
CPT/HCPCS: 36415; 85025

== ENCOUNTER → 2022-07-11 | Outpatient (CLI) | payer MEDICAID, SELFPAY ==
[2022-07-11 11:00] LABS: Absolute Lymphocyte Count 1.98 X10^3/uL (0.83-4.51); Absolute Neutrophil Count 2.9 X10^3/uL (2.0-7.7); Basophil# 0.03 X10^3/uL; Basophil% 0.5 % (0-1); Eosinophil# 0.09 X10^3/uL; Eosinophils% 1.6 % (0-5); Hematocrit 41.1 % (40-54); Hemoglobin 13.2 g/dL (13.0-16.5); Lymphocyte # 1.98 X10^3/ul (0.83-4.51); Lymphocyte % 35.9 % (19-41); Mean Corp Hgb Conc 32.1 g/dL (32-36); Mean Corpuscular Hgb 29.8 pg (27.0-32.0); Mean Corpuscular Volume 92.8 fL (80-94); Mean Platelet Vol. 10.7 fl (6.2-12.0); Monocyte# 0.49 X10^3/uL; Monocyte% 8.9 % (0-10); NRBC Flagged by Analyzer 0 % (0-5); Neutrophil % 52.6 % (47-70); Platelet Count 194 K/mm3 (150-450); RBC Distribution Width SD 48.2 fl (35.1-43.9); Red Blood Count 4.43 M/mm3 (4.6-6.2); White Blood Count 5.5 K/mm3 (4.4-11.0)
== END | disposition home or self-care (01) ==
LOC: LAB 07:40
PROVIDERS: PCP Family Medicine; Referring Provider Student in an Organized Health Care Education/Training Program; Visit Provider Student in an Organized Health Care Education/Training Program
DX: Z51.81 Encounter for therapeutic drug level monitoring (principal); F31.9 Bipolar disorder, unspecified
CPT/HCPCS: 36415; 85025

== ENCOUNTER → 2022-07-18 | Outpatient (CLI) | payer MEDICAID, SELFPAY ==
[2022-07-18 11:25] LABS: Absolute Lymphocyte Count 1.29 X10^3/uL (0.83-4.51); Absolute Neutrophil Count 3.1 X10^3/uL (2.0-7.7); Basophil# 0.03 X10^3/uL; Basophil% 0.6 % (0-1); Eosinophil# 0.08 X10^3/uL; Eosinophils% 1.6 % (0-5); Hematocrit 39.8 % (40-54); Hemoglobin 12.7 g/dL (13.0-16.5); Lymphocyte # 1.29 X10^3/ul (0.83-4.51); Lymphocyte % 25.6 % (19-41); Mean Corp Hgb Conc 31.9 g/dL (32-36); Mean Corpuscular Volume 94.1 fL (80-94); Mean Platelet Vol. 11.1 fl (6.2-12.0); Monocyte# 0.52 X10^3/uL; Monocyte% 10.3 % (0-10); NRBC Flagged by Analyzer 0 % (0-5); Neutrophil % 61.7 % (47-70); Platelet Count 134 K/mm3 (150-450); RBC Distribution Width SD 48.2 fl (35.1-43.9); Red Blood Count 4.23 M/mm3 (4.6-6.2)
== END | disposition home or self-care (01) ==
LOC: LAB 08:53
PROVIDERS: PCP Family Medicine; Referring Provider Student in an Organized Health Care Education/Training Program; Visit Provider Student in an Organized Health Care Education/Training Program
DX: F31.9 Bipolar disorder, unspecified (principal); Z51.81 Encounter for therapeutic drug level monitoring
CPT/HCPCS: 36415; 85025

== ENCOUNTER → 2022-07-25 | Outpatient (CLI) | payer MEDICAID, SELFPAY ==
[2022-07-25 11:34] LABS: Absolute Lymphocyte Count 1.32 X10^3/uL (0.83-4.51); Absolute Neutrophil Count 5.1 X10^3/uL (2.0-7.7); Basophil# 0.03 X10^3/uL; Basophil% 0.4 % (0-1); Eosinophil# 0.07 X10^3/uL; Hematocrit 38.7 % (40-54); Hemoglobin 12.3 g/dL (13.0-16.5); Lymphocyte # 1.32 X10^3/ul (0.83-4.51); Lymphocyte % 18.2 % (19-41); Mean Corp Hgb Conc 31.8 g/dL (32-36); Mean Corpuscular Hgb 29.3 pg (27.0-32.0); Mean Corpuscular Volume 92.1 fL (80-94); Mean Platelet Vol. 11.5 fl (6.2-12.0); Monocyte# 0.68 X10^3/uL; Monocyte% 9.4 % (0-10); NRBC Flagged by Analyzer 0 % (0-5); Neutrophil # 5.14 X10^3/uL (2.7-7.7); Neutrophil % 70.6 % (47-70); Platelet Count 131 K/mm3 (150-450); RBC Distribution Width SD 47.3 fl (35.1-43.9); White Blood Count 7.3 K/mm3 (4.4-11.0)
== END | disposition home or self-care (01) ==
LOC: LAB 08:28
PROVIDERS: PCP Family Medicine; Referring Provider Student in an Organized Health Care Education/Training Program; Visit Provider Student in an Organized Health Care Education/Training Program
DX: Z51.81 Encounter for therapeutic drug level monitoring (principal); F31.9 Bipolar disorder, unspecified
CPT/HCPCS: 36415; 85025

== ENCOUNTER → 2022-08-01 | Outpatient (CLI) | payer MEDICAID, SELFPAY ==
[2022-08-01 11:48] LABS: Absolute Lymphocyte Count 0.91 X10^3/uL (0.83-4.51); Absolute Neutrophil Count 2.4 X10^3/uL (2.0-7.7); Basophil# 0.02 X10^3/uL; Basophil% 0.5 % (0-1); Eosinophil# 0.15 X10^3/uL; Eosinophils% 3.8 % (0-5); Hemoglobin 11.5 g/dL (13.0-16.5); Lymphocyte # 0.91 X10^3/ul (0.83-4.51); Mean Corp Hgb Conc 31.9 g/dL (32-36); Mean Corpuscular Hgb 29.6 pg (27.0-32.0); Mean Corpuscular Volume 92.8 fL (80-94); Mean Platelet Vol. 10.4 fl (6.2-12.0); Monocyte# 0.45 X10^3/uL; Monocyte% 11.4 % (0-10); NRBC Flagged by Analyzer 0 % (0-5); Neutrophil # 2.41 X10^3/uL (2.7-7.7); Neutrophil % 60.8 % (47-70); Platelet Count 151 K/mm3 (150-450); RBC Distribution Width CV 14.7 % (11.6-14.6); RBC Distribution Width SD 50.3 fl (35.1-43.9); Red Blood Count 3.88 M/mm3 (4.6-6.2)
== END | disposition home or self-care (01) ==
LOC: LAB 09:11
PROVIDERS: PCP Family Medicine; Referring Provider Student in an Organized Health Care Education/Training Program; Visit Provider Student in an Organized Health Care Education/Training Program
DX: Z51.81 Encounter for therapeutic drug level monitoring (principal); F31.9 Bipolar disorder, unspecified
CPT/HCPCS: 36415; 85025

== ENCOUNTER → 2022-08-08 | Outpatient (CLI) | payer MEDICAID, SELFPAY ==
[2022-08-08 10:26] LABS: Absolute Lymphocyte Count 1.93 X10^3/uL (0.83-4.51); Absolute Neutrophil Count 3.2 X10^3/uL (2.0-7.7); Basophil# 0.02 X10^3/uL; Basophil% 0.3 % (0-1); Eosinophil# 0.12 X10^3/uL; Hematocrit 37.3 % (40-54); Hemoglobin 11.5 g/dL (13.0-16.5); Lymphocyte # 1.93 X10^3/ul (0.83-4.51); Lymphocyte % 32.3 % (19-41); Mean Corp Hgb Conc 30.8 g/dL (32-36); Mean Corpuscular Hgb 29.6 pg (27.0-32.0); Mean Corpuscular Volume 95.9 fL (80-94); Mean Platelet Vol. 10.3 fl (6.2-12.0); Monocyte% 11.7 % (0-10); NRBC Flagged by Analyzer 0 % (0-5); Neutrophil # 3.18 X10^3/uL (2.7-7.7); Neutrophil % 53.2 % (47-70); Platelet Count 174 K/mm3 (150-450); RBC Distribution Width CV 15.1 % (11.6-14.6); Red Blood Count 3.89 M/mm3 (4.6-6.2)
== END | disposition home or self-care (01) ==
LOC: LAB 08:21
PROVIDERS: PCP Family Medicine; Referring Provider Student in an Organized Health Care Education/Training Program; Visit Provider Student in an Organized Health Care Education/Training Program
DX: Z51.81 Encounter for therapeutic drug level monitoring (principal); F31.9 Bipolar disorder, unspecified
CPT/HCPCS: 36415; 85025

== ENCOUNTER → 2022-08-15 | Outpatient (CLI) | payer MEDICAID, SELFPAY ==
[2022-08-15 11:03] LABS: Absolute Lymphocyte Count 1.52 X10^3/uL (0.83-4.51); Absolute Neutrophil Count 4.4 X10^3/uL (2.0-7.7); Basophil# 0.02 X10^3/uL; Basophil% 0.3 % (0-1); Eosinophil# 0.08 X10^3/uL; Eosinophils% 1.2 % (0-5); Hematocrit 36.7 % (40-54); Hemoglobin 11.5 g/dL (13.0-16.5); Lymphocyte # 1.52 X10^3/ul (0.83-4.51); Lymphocyte % 23.5 % (19-41); Mean Corp Hgb Conc 31.3 g/dL (32-36); Mean Corpuscular Hgb 29.6 pg (27.0-32.0); Mean Corpuscular Volume 94.6 fL (80-94); Mean Platelet Vol. 11.5 fl (6.2-12.0); Monocyte# 0.47 X10^3/uL; Monocyte% 7.3 % (0-10); NRBC Flagged by Analyzer 0 % (0-5); Neutrophil # 4.37 X10^3/uL (2.7-7.7); Neutrophil % 67.4 % (47-70); Platelet Count 166 K/mm3 (150-450); RBC Distribution Width CV 14.7 % (11.6-14.6); RBC Distribution Width SD 51.1 fl (35.1-43.9); Red Blood Count 3.88 M/mm3 (4.6-6.2); White Blood Count 6.5 K/mm3 (4.4-11.0)
== END | disposition home or self-care (01) ==
LOC: LAB 08:17
PROVIDERS: PCP Family Medicine; Referring Provider Student in an Organized Health Care Education/Training Program; Visit Provider Student in an Organized Health Care Education/Training Program
DX: Z51.81 Encounter for therapeutic drug level monitoring (principal); F31.9 Bipolar disorder, unspecified
CPT/HCPCS: 36415; 85025

== ENCOUNTER → 2022-08-22 | Outpatient (CLI) | payer MEDICAID, SELFPAY ==
[2022-08-22 11:04] LABS: Absolute Neutrophil Count 3.4 X10^3/uL (2.0-7.7); Basophil# 0.06 X10^3/uL; Eosinophil# 0.14 X10^3/uL; Eosinophils% 2.3 % (0-5); Hematocrit 45.3 % (40-54); Hemoglobin 13.3 g/dL (13.0-16.5); Lymphocyte % 31.6 % (19-41); Mean Corp Hgb Conc 29.4 g/dL (32-36); Mean Corpuscular Hgb 30.4 pg (27.0-32.0); Mean Corpuscular Volume 103.7 fL (80-94); Mean Platelet Vol. 10.7 fl (6.2-12.0); Monocyte# 0.53 X10^3/uL; Monocyte% 8.8 % (0-10); NRBC Flagged by Analyzer 0 % (0-5); Neutrophil # 3.37 X10^3/uL (2.7-7.7); Platelet Count 213 K/mm3 (150-450); RBC Distribution Width CV 14.9 % (11.6-14.6); RBC Distribution Width SD 57.6 fl (35.1-43.9); Red Blood Count 4.37 M/mm3 (4.6-6.2)
== END | disposition home or self-care (01) ==
LOC: LAB 04:00
PROVIDERS: PCP Family Medicine; Visit Provider Student in an Organized Health Care Education/Training Program
DX: Z51.81 Encounter for therapeutic drug level monitoring (principal); F31.9 Bipolar disorder, unspecified
CPT/HCPCS: 36415; 85025

== ENCOUNTER → 2022-08-29 | Outpatient (CLI) | payer MEDICAID, SELFPAY ==
[2022-08-29 10:57] LABS: Absolute Lymphocyte Count 1.71 X10^3/uL (0.83-4.51); Absolute Neutrophil Count 7.1 X10^3/uL (2.0-7.7); Basophil# 0.03 X10^3/uL; Basophil% 0.3 % (0-1); Eosinophil# 0.17 X10^3/uL; Eosinophils% 1.7 % (0-5); Hematocrit 39.7 % (40-54); Hemoglobin 12.9 g/dL (13.0-16.5); Lymphocyte # 1.71 X10^3/ul (0.83-4.51); Lymphocyte % 17.3 % (19-41); Mean Corp Hgb Conc 32.5 g/dL (32-36); Mean Corpuscular Hgb 30.4 pg (27.0-32.0); Mean Corpuscular Volume 93.4 fL (80-94); Mean Platelet Vol. 11.1 fl (6.2-12.0); Monocyte% 9.1 % (0-10); NRBC Flagged by Analyzer 0 % (0-5); Neutrophil # 7.06 X10^3/uL (2.7-7.7); Neutrophil % 71.3 % (47-70); Platelet Count 160 K/mm3 (150-450); RBC Distribution Width CV 14.8 % (11.6-14.6); Red Blood Count 4.25 M/mm3 (4.6-6.2); White Blood Count 9.9 K/mm3 (4.4-11.0)
== END | disposition home or self-care (01) ==
LOC: LAB 08:11
PROVIDERS: PCP Family Medicine; Referring Provider Student in an Organized Health Care Education/Training Program; Visit Provider Student in an Organized Health Care Education/Training Program
DX: Z51.81 Encounter for therapeutic drug level monitoring (principal); F31.9 Bipolar disorder, unspecified
CPT/HCPCS: 36415; 85025

== ENCOUNTER → 2022-09-05 | Outpatient (CLI) | payer MEDICAID, SELFPAY ==
[2022-09-05 11:44] LABS: Absolute Lymphocyte Count 1.84 X10^3/uL (0.83-4.51); Absolute Neutrophil Count 3.6 X10^3/uL (2.0-7.7); Basophil# 0.03 X10^3/uL; Basophil% 0.5 % (0-1); Eosinophil# 0.12 X10^3/uL; Eosinophils% 1.9 % (0-5); Hematocrit 38.5 % (40-54); Hemoglobin 12.6 g/dL (13.0-16.5); Lymphocyte # 1.84 X10^3/ul (0.83-4.51); Lymphocyte % 29.8 % (19-41); Mean Corp Hgb Conc 32.7 g/dL (32-36); Mean Corpuscular Hgb 30.9 pg (27.0-32.0); Mean Corpuscular Volume 94.4 fL (80-94); Mean Platelet Vol. 10.6 fl (6.2-12.0); Monocyte# 0.57 X10^3/uL; Monocyte% 9.2 % (0-10); NRBC Flagged by Analyzer 0 % (0-5); Neutrophil # 3.59 X10^3/uL (2.7-7.7); Neutrophil % 58.3 % (47-70); Platelet Count 143 K/mm3 (150-450); RBC Distribution Width CV 14.6 % (11.6-14.6); RBC Distribution Width SD 50.5 fl (35.1-43.9); Red Blood Count 4.08 M/mm3 (4.6-6.2); White Blood Count 6.2 K/mm3 (4.4-11.0)
== END | disposition home or self-care (01) ==
LOC: LAB 08:37
PROVIDERS: PCP Family Medicine; Referring Provider Student in an Organized Health Care Education/Training Program; Visit Provider Student in an Organized Health Care Education/Training Program
DX: Z51.81 Encounter for therapeutic drug level monitoring (principal); F31.9 Bipolar disorder, unspecified
CPT/HCPCS: 36415; 85025

== ENCOUNTER → 2022-09-12 | Outpatient (CLI) | payer MEDICAID, SELFPAY ==
[2022-09-12 11:02] LABS: Absolute Lymphocyte Count 2.57 X10^3/uL (0.83-4.51); Basophil# 0.03 X10^3/uL; Basophil% 0.4 % (0-1); Eosinophil# 0.12 X10^3/uL; Eosinophils% 1.7 % (0-5); Hematocrit 39.9 % (40-54); Hemoglobin 13.1 g/dL (13.0-16.5); Lymphocyte # 2.57 X10^3/ul (0.83-4.51); Mean Corp Hgb Conc 32.8 g/dL (32-36); Mean Corpuscular Hgb 30.5 pg (27.0-32.0); Mean Corpuscular Volume 92.8 fL (80-94); Mean Platelet Vol. 11.2 fl (6.2-12.0); Monocyte% 5.6 % (0-10); NRBC Flagged by Analyzer 0 % (0-5); Neutrophil % 56.2 % (47-70); Platelet Count 151 K/mm3 (150-450); RBC Distribution Width CV 14.9 % (11.6-14.6); RBC Distribution Width SD 50.9 fl (35.1-43.9); White Blood Count 7.1 K/mm3 (4.4-11.0)
== END | disposition home or self-care (01) ==
LOC: LAB 08:07
PROVIDERS: PCP Family Medicine; Referring Provider Student in an Organized Health Care Education/Training Program; Visit Provider Student in an Organized Health Care Education/Training Program
DX: Z51.81 Encounter for therapeutic drug level monitoring (principal); F31.9 Bipolar disorder, unspecified
CPT/HCPCS: 36415; 85025

== ENCOUNTER → 2022-09-19 | Outpatient (CLI) | payer MEDICAID, SELFPAY ==
[2022-09-19 10:58] LABS: Absolute Lymphocyte Count 2.19 X10^3/uL (0.83-4.51); Absolute Neutrophil Count 4.3 X10^3/uL (2.0-7.7); Basophil# 0.04 X10^3/uL; Basophil% 0.5 % (0-1); Eosinophil# 0.12 X10^3/uL; Eosinophils% 1.6 % (0-5); Hematocrit 41.2 % (40-54); Hemoglobin 12.9 g/dL (13.0-16.5); Lymphocyte # 2.19 X10^3/ul (0.83-4.51); Lymphocyte % 29.2 % (19-41); Mean Corp Hgb Conc 31.3 g/dL (32-36); Mean Corpuscular Hgb 28.7 pg (27.0-32.0); Mean Corpuscular Volume 91.8 fL (80-94); Mean Platelet Vol. 11.5 fl (6.2-12.0); Monocyte# 0.79 X10^3/uL; Monocyte% 10.5 % (0-10); NRBC Flagged by Analyzer 0 % (0-5); Neutrophil # 4.33 X10^3/uL (2.7-7.7); Neutrophil % 57.9 % (47-70); Platelet Count 168 K/mm3 (150-450); RBC Distribution Width CV 14.6 % (11.6-14.6); RBC Distribution Width SD 49.1 fl (35.1-43.9); Red Blood Count 4.49 M/mm3 (4.6-6.2); White Blood Count 7.5 K/mm3 (4.4-11.0)
== END | disposition home or self-care (01) ==
LOC: LAB 08:19
PROVIDERS: PCP Family Medicine; Visit Provider Student in an Organized Health Care Education/Training Program
DX: F31.9 Bipolar disorder, unspecified (principal); Z51.81 Encounter for therapeutic drug level monitoring
CPT/HCPCS: 36415; 85025

== ENCOUNTER → 2022-09-26 | Outpatient (CLI) | payer MEDICAID, SELFPAY ==
[2022-09-26 10:53] LABS: Absolute Lymphocyte Count 1.96 X10^3/uL (0.83-4.51); Absolute Neutrophil Count 2.3 X10^3/uL (2.0-7.7); Basophil# 0.03 X10^3/uL; Basophil% 0.6 % (0-1); Eosinophil# 0.13 X10^3/uL; Eosinophils% 2.7 % (0-5); Hematocrit 38.2 % (40-54); Hemoglobin 12.8 g/dL (13.0-16.5); Lymphocyte # 1.96 X10^3/ul (0.83-4.51); Lymphocyte % 40.3 % (19-41); Mean Corp Hgb Conc 33.5 g/dL (32-36); Mean Corpuscular Hgb 30.4 pg (27.0-32.0); Mean Corpuscular Volume 90.7 fL (80-94); Mean Platelet Vol. 10.6 fl (6.2-12.0); Monocyte# 0.41 X10^3/uL; Monocyte% 8.4 % (0-10); NRBC Flagged by Analyzer 0 % (0-5); Neutrophil # 2.32 X10^3/uL (2.7-7.7); Neutrophil % 47.8 % (47-70); Platelet Count 183 K/mm3 (150-450); RBC Distribution Width CV 14.6 % (11.6-14.6); RBC Distribution Width SD 48.7 fl (35.1-43.9); Red Blood Count 4.21 M/mm3 (4.6-6.2); White Blood Count 4.9 K/mm3 (4.4-11.0)
== END | disposition home or self-care (01) ==
LOC: LAB 08:20
PROVIDERS: PCP Family Medicine; Referring Provider Student in an Organized Health Care Education/Training Program; Visit Provider Student in an Organized Health Care Education/Training Program
DX: F31.9 Bipolar disorder, unspecified (principal); Z51.81 Encounter for therapeutic drug level monitoring
CPT/HCPCS: 36415; 85025

== ENCOUNTER → 2022-10-03 | Outpatient (CLI) | payer MEDICAID, SELFPAY ==
[2022-10-03 11:14] LABS: Absolute Lymphocyte Count 1.42 X10^3/uL (0.83-4.51); Absolute Neutrophil Count 3.5 X10^3/uL (2.0-7.7); Basophil# 0.02 X10^3/uL; Basophil% 0.4 % (0-1); Eosinophil# 0.06 X10^3/uL; Eosinophils% 1.1 % (0-5); Hematocrit 38.9 % (40-54); Hemoglobin 12.2 g/dL (13.0-16.5); Lymphocyte # 1.42 X10^3/ul (0.83-4.51); Lymphocyte % 25.2 % (19-41); Mean Corp Hgb Conc 31.4 g/dL (32-36); Mean Corpuscular Hgb 29.2 pg (27.0-32.0); Mean Corpuscular Volume 93.1 fL (80-94); Mean Platelet Vol. 11.3 fl (6.2-12.0); Monocyte# 0.67 X10^3/uL; Monocyte% 11.9 % (0-10); NRBC Flagged by Analyzer 0 % (0-5); Neutrophil # 3.45 X10^3/uL (2.7-7.7); Platelet Count 111 K/mm3 (150-450); RBC Distribution Width CV 14.6 % (11.6-14.6); RBC Distribution Width SD 50.5 fl (35.1-43.9); Red Blood Count 4.18 M/mm3 (4.6-6.2); White Blood Count 5.6 K/mm3 (4.4-11.0)
[2022-10-03 11:24] LABS: ALB/GLOB Ratio 0.9 RATIO (0.9-2.4); AST(SGOT) 8 U/L (15-37); Alanine Aminotransfer ALT/SGPT 11 U/L (16-61); Albumin, Serum 3.2 g/dL (3.2-5.0); Alkaline Phosphatase 47 U/L (45-117); Anion Gap 4 (5-15); BUN 15 mg/dL (7-18); Calcium,Total 9.3 mg/dL (8.5-10.1); Chloride 109 mmol/L (98-107); Cholesterol 129 mg/dL (200); Creatinine, Serum 0.79 mg/dL (0.70-1.30); EST Glomerular Filtration Rate 115 mL/min (>60); Est Glom Filt Rate - Afr Amer 139 mL/min (>60); Globulin 3.6 g/dL (2.2-4.2); Glucose 111 mg/dL (74-106); Potassium 4.5 mmol/L (3.5-5.1); Protein, Total 6.8 g/dL (6.4-8.2); Sodium Level 139 mmol/L (136-145)
== END | disposition home or self-care (01) ==
LOC: LAB 08:53
PROVIDERS: PCP Family Medicine; Referring Provider Student in an Organized Health Care Education/Training Program; Visit Provider Student in an Organized Health Care Education/Training Program
DX: Z51.81 Encounter for therapeutic drug level monitoring (principal); F31.9 Bipolar disorder, unspecified; F79 Unspecified intellectual disabilities
CPT/HCPCS: 80053; 82465; 85025

== ENCOUNTER → 2022-10-10 | Outpatient (CLI) | payer MEDICAID, SELFPAY ==
[2022-10-10 11:28] LABS: Absolute Lymphocyte Count 1.91 X10^3/uL (0.83-4.51); Absolute Neutrophil Count 3.3 X10^3/uL (2.0-7.7); Basophil# 0.03 X10^3/uL; Basophil% 0.5 % (0-1); Eosinophil# 0.09 X10^3/uL; Eosinophils% 1.6 % (0-5); Hematocrit 40.7 % (40-54); Hemoglobin 12.9 g/dL (13.0-16.5); Lymphocyte # 1.91 X10^3/ul (0.83-4.51); Lymphocyte % 33.1 % (19-41); Mean Corp Hgb Conc 31.7 g/dL (32-36); Mean Corpuscular Hgb 29.7 pg (27.0-32.0); Mean Corpuscular Volume 93.6 fL (80-94); Mean Platelet Vol. 12.3 fl (6.2-12.0); Monocyte# 0.46 X10^3/uL; NRBC Flagged by Analyzer 0 % (0-5); Neutrophil # 3.26 X10^3/uL (2.7-7.7); Neutrophil % 56.5 % (47-70); POSITIVE COUNT YES; RBC Distribution Width CV 14.6 % (11.6-14.6); RBC Distribution Width SD 50.8 fl (35.1-43.9); Red Blood Count 4.35 M/mm3 (4.6-6.2); White Blood Count 5.8 K/mm3 (4.4-11.0)
[2022-10-10 12:19] LABS: Differential Indicated SCAN CRITERIA MET; Platelet Estimate MOD DEC (ADEQ)
== END | disposition home or self-care (01) ==
LOC: LAB 08:29
PROVIDERS: PCP Family Medicine; Referring Provider Student in an Organized Health Care Education/Training Program; Visit Provider Student in an Organized Health Care Education/Training Program
DX: Z51.81 Encounter for therapeutic drug level monitoring (principal); F31.9 Bipolar disorder, unspecified
CPT/HCPCS: 36415; 85025

== ENCOUNTER → 2022-10-17 | Outpatient (CLI) | payer MEDICAID, SELFPAY ==
[2022-10-17 11:39] LABS: Absolute Lymphocyte Count 1.55 X10^3/uL (0.83-4.51); Absolute Neutrophil Count 3.9 X10^3/uL (2.0-7.7); Basophil# 0.02 X10^3/uL; Basophil% 0.3 % (0-1); Eosinophils% 1.6 % (0-5); Hematocrit 39.9 % (40-54); Hemoglobin 12.2 g/dL (13.0-16.5); Lymphocyte # 1.55 X10^3/ul (0.83-4.51); Lymphocyte % 25.2 % (19-41); Mean Corp Hgb Conc 30.6 g/dL (32-36); Mean Platelet Vol. 10.4 fl (6.2-12.0); Monocyte# 0.59 X10^3/uL; Monocyte% 9.6 % (0-10); NRBC Flagged by Analyzer 0 % (0-5); Neutrophil # 3.85 X10^3/uL (2.7-7.7); Neutrophil % 62.8 % (47-70); Platelet Count 169 K/mm3 (150-450); RBC Distribution Width CV 15.1 % (11.6-14.6); RBC Distribution Width SD 52.2 fl (35.1-43.9); White Blood Count 6.1 K/mm3 (4.4-11.0)
== END | disposition home or self-care (01) ==
LOC: LAB 08:10
PROVIDERS: PCP Family Medicine; Referring Provider Student in an Organized Health Care Education/Training Program; Visit Provider Student in an Organized Health Care Education/Training Program
DX: Z51.81 Encounter for therapeutic drug level monitoring (principal); F31.9 Bipolar disorder, unspecified
CPT/HCPCS: 36415; 85025

== ENCOUNTER → 2022-10-24 | Outpatient (CLI) | payer MEDICAID, SELFPAY ==
[2022-10-24 11:09] LABS: Absolute Lymphocyte Count 1.41 X10^3/uL (0.83-4.51); Absolute Neutrophil Count 3.1 X10^3/uL (2.0-7.7); Basophil# 0.03 X10^3/uL; Basophil% 0.6 % (0-1); Eosinophil# 0.13 X10^3/uL; Eosinophils% 2.5 % (0-5); Hematocrit 38.3 % (40-54); Hemoglobin 12.6 g/dL (13.0-16.5); Lymphocyte # 1.41 X10^3/ul (0.83-4.51); Lymphocyte % 27.1 % (19-41); Mean Corp Hgb Conc 32.9 g/dL (32-36); Mean Corpuscular Hgb 30.4 pg (27.0-32.0); Mean Corpuscular Volume 92.3 fL (80-94); Mean Platelet Vol. 10.1 fl (6.2-12.0); Monocyte# 0.49 X10^3/uL; Monocyte% 9.4 % (0-10); NRBC Flagged by Analyzer 0 % (0-5); Neutrophil # 3.12 X10^3/uL (2.7-7.7); Neutrophil % 59.8 % (47-70); Platelet Count 161 K/mm3 (150-450); RBC Distribution Width CV 14.6 % (11.6-14.6); RBC Distribution Width SD 49.9 fl (35.1-43.9); Red Blood Count 4.15 M/mm3 (4.6-6.2); White Blood Count 5.2 K/mm3 (4.4-11.0)
== END | disposition home or self-care (01) ==
LOC: LAB 09:25
PROVIDERS: PCP Family Medicine; Referring Provider Student in an Organized Health Care Education/Training Program; Visit Provider Student in an Organized Health Care Education/Training Program
DX: Z51.81 Encounter for therapeutic drug level monitoring (principal); F31.9 Bipolar disorder, unspecified
CPT/HCPCS: 36415; 85025

== ENCOUNTER → 2022-11-07 | Outpatient (CLI) | payer MEDICAID, SELFPAY ==
[2022-11-07 11:05] LABS: Absolute Lymphocyte Count 2.26 X10^3/uL (0.83-4.51); Basophil# 0.03 X10^3/uL; Basophil% 0.4 % (0-1); Eosinophil# 0.16 X10^3/uL; Eosinophils% 2.3 % (0-5); Hematocrit 38.8 % (40-54); Hemoglobin 12.4 g/dL (13.0-16.5); Lymphocyte # 2.26 X10^3/ul (0.83-4.51); Lymphocyte % 32.4 % (19-41); Mean Corpuscular Volume 90.9 fL (80-94); Mean Platelet Vol. 10.4 fl (6.2-12.0); Monocyte# 0.55 X10^3/uL; Monocyte% 7.9 % (0-10); NRBC Flagged by Analyzer 0 % (0-5); Neutrophil # 3.95 X10^3/uL (2.7-7.7); Neutrophil % 56.6 % (47-70); Platelet Count 147 K/mm3 (150-450); RBC Distribution Width SD 49.9 fl (35.1-43.9); Red Blood Count 4.27 M/mm3 (4.6-6.2)
== END | disposition home or self-care (01) ==
LOC: LAB 09:41
PROVIDERS: PCP Family Medicine; Visit Provider Student in an Organized Health Care Education/Training Program
DX: Z51.81 Encounter for therapeutic drug level monitoring (principal); F31.9 Bipolar disorder, unspecified
CPT/HCPCS: 36415; 85025

== ENCOUNTER → 2022-11-14 | Outpatient (CLI) | payer MEDICAID, SELFPAY ==
[2022-11-14 09:57] LABS: Absolute Lymphocyte Count 1.95 X10^3/uL (0.83-4.51); Absolute Neutrophil Count 3.1 X10^3/uL (2.0-7.7); Basophil# 0.03 X10^3/uL; Basophil% 0.5 % (0-1); Eosinophil# 0.17 X10^3/uL; Eosinophils% 3.1 % (0-5); Hematocrit 40.7 % (40-54); Hemoglobin 13.2 g/dL (13.0-16.5); Lymphocyte # 1.95 X10^3/ul (0.83-4.51); Lymphocyte % 35.3 % (19-41); Mean Corp Hgb Conc 32.4 g/dL (32-36); Mean Corpuscular Hgb 30.3 pg (27.0-32.0); Mean Corpuscular Volume 93.3 fL (80-94); Mean Platelet Vol. 10.5 fl (6.2-12.0); Monocyte# 0.32 X10^3/uL; Monocyte% 5.8 % (0-10); NRBC Flagged by Analyzer 0 % (0-5); Neutrophil # 3.05 X10^3/uL (2.7-7.7); Neutrophil % 55.1 % (47-70); Platelet Count 168 K/mm3 (150-450); RBC Distribution Width CV 15.2 % (11.6-14.6); RBC Distribution Width SD 52.6 fl (35.1-43.9); Red Blood Count 4.36 M/mm3 (4.6-6.2); White Blood Count 5.5 K/mm3 (4.4-11.0)
== END | disposition home or self-care (01) ==
LOC: LAB 08:55
PROVIDERS: PCP Family Medicine; Visit Provider Student in an Organized Health Care Education/Training Program
DX: Z51.81 Encounter for therapeutic drug level monitoring (principal); F31.9 Bipolar disorder, unspecified
CPT/HCPCS: 36415; 85025

== ENCOUNTER → 2022-11-21 | Outpatient (CLI) | payer MEDICAID, SELFPAY ==
[2022-11-21 11:00] LABS: Absolute Lymphocyte Count 1.41 X10^3/uL (0.83-4.51); Absolute Neutrophil Count 3.5 X10^3/uL (2.0-7.7); Basophil# 0.02 X10^3/uL; Basophil% 0.4 % (0-1); Eosinophil# 0.06 X10^3/uL; Eosinophils% 1.1 % (0-5); Hematocrit 38.9 % (40-54); Hemoglobin 12.4 g/dL (13.0-16.5); Lymphocyte # 1.41 X10^3/ul (0.83-4.51); Lymphocyte % 25.6 % (19-41); Mean Corp Hgb Conc 31.9 g/dL (32-36); Mean Corpuscular Volume 94.2 fL (80-94); Mean Platelet Vol. 10.4 fl (6.2-12.0); Monocyte# 0.53 X10^3/uL; Monocyte% 9.6 % (0-10); NRBC Flagged by Analyzer 0 % (0-5); Neutrophil # 3.46 X10^3/uL (2.7-7.7); Neutrophil % 62.9 % (47-70); Platelet Count 180 K/mm3 (150-450); RBC Distribution Width CV 15.5 % (11.6-14.6); RBC Distribution Width SD 53.7 fl (35.1-43.9); Red Blood Count 4.13 M/mm3 (4.6-6.2); White Blood Count 5.5 K/mm3 (4.4-11.0)
== END | disposition home or self-care (01) ==
LOC: LAB 08:19
PROVIDERS: PCP Family Medicine; Referring Provider Student in an Organized Health Care Education/Training Program; Visit Provider Student in an Organized Health Care Education/Training Program
DX: Z51.81 Encounter for therapeutic drug level monitoring (principal); F31.9 Bipolar disorder, unspecified
CPT/HCPCS: 36415; 85025

== ENCOUNTER → 2022-11-28 | Outpatient (CLI) | payer MEDICAID, SELFPAY ==
[2022-11-28 11:03] LABS: Absolute Lymphocyte Count 1.79 X10^3/uL (0.83-4.51); Absolute Neutrophil Count 5.4 X10^3/uL (2.0-7.7); Basophil# 0.04 X10^3/uL; Basophil% 0.5 % (0-1); Eosinophil# 0.14 X10^3/uL; Eosinophils% 1.7 % (0-5); Hematocrit 39.6 % (40-54); Hemoglobin 12.5 g/dL (13.0-16.5); Lymphocyte # 1.79 X10^3/ul (0.83-4.51); Lymphocyte % 21.6 % (19-41); Mean Corp Hgb Conc 31.6 g/dL (32-36); Mean Corpuscular Hgb 29.4 pg (27.0-32.0); Mean Corpuscular Volume 93.2 fL (80-94); Mean Platelet Vol. 10.8 fl (6.2-12.0); Monocyte# 0.88 X10^3/uL; Monocyte% 10.6 % (0-10); NRBC Flagged by Analyzer 0 % (0-5); Neutrophil % 65.4 % (47-70); Platelet Count 172 K/mm3 (150-450); RBC Distribution Width CV 15.4 % (11.6-14.6); Red Blood Count 4.25 M/mm3 (4.6-6.2); White Blood Count 8.3 K/mm3 (4.4-11.0)
== END | disposition home or self-care (01) ==
LOC: LAB 08:10
PROVIDERS: PCP Family Medicine; Referring Provider Student in an Organized Health Care Education/Training Program; Visit Provider Student in an Organized Health Care Education/Training Program
DX: Z51.81 Encounter for therapeutic drug level monitoring (principal); F31.9 Bipolar disorder, unspecified
CPT/HCPCS: 36415; 85025

== ENCOUNTER → 2022-12-05 | Outpatient (CLI) | payer MEDICAID, SELFPAY ==
[2022-12-05 10:49] LABS: Absolute Lymphocyte Count 2.44 X10^3/uL (0.83-4.51); Absolute Neutrophil Count 3.5 X10^3/uL (2.0-7.7); Basophil# 0.04 X10^3/uL; Basophil% 0.6 % (0-1); Eosinophil# 0.16 X10^3/uL; Eosinophils% 2.3 % (0-5); Hematocrit 40.9 % (40-54); Hemoglobin 12.4 g/dL (13.0-16.5); Lymphocyte # 2.44 X10^3/ul (0.83-4.51); Lymphocyte % 35.4 % (19-41); Mean Corp Hgb Conc 30.3 g/dL (32-36); Mean Corpuscular Hgb 29.2 pg (27.0-32.0); Mean Corpuscular Volume 96.2 fL (80-94); Mean Platelet Vol. 10.6 fl (6.2-12.0); Monocyte# 0.77 X10^3/uL; Monocyte% 11.2 % (0-10); NRBC Flagged by Analyzer 0 % (0-5); Neutrophil # 3.46 X10^3/uL (2.7-7.7); Neutrophil % 50.1 % (47-70); Platelet Count 166 K/mm3 (150-450); RBC Distribution Width CV 15.4 % (11.6-14.6); RBC Distribution Width SD 54.9 fl (35.1-43.9); Red Blood Count 4.25 M/mm3 (4.6-6.2); White Blood Count 6.9 K/mm3 (4.4-11.0)
== END | disposition home or self-care (01) ==
LOC: LAB 08:09
PROVIDERS: PCP Family Medicine; Referring Provider Student in an Organized Health Care Education/Training Program; Visit Provider Student in an Organized Health Care Education/Training Program
DX: Z51.81 Encounter for therapeutic drug level monitoring (principal); F31.9 Bipolar disorder, unspecified
CPT/HCPCS: 36415; 85025

== ENCOUNTER → 2022-12-12 | Outpatient (CLI) | payer MEDICAID, SELFPAY ==
[2022-12-12 11:22] LABS: Absolute Lymphocyte Count 3.18 X10^3/uL (0.83-4.51); Absolute Neutrophil Count 3.7 X10^3/uL (2.0-7.7); Basophil# 0.04 X10^3/uL; Basophil% 0.5 % (0-1); Eosinophils% 1.3 % (0-5); Hematocrit 42.4 % (40-54); Hemoglobin 13.6 g/dL (13.0-16.5); Lymphocyte # 3.18 X10^3/ul (0.83-4.51); Mean Corp Hgb Conc 32.1 g/dL (32-36); Mean Corpuscular Hgb 29.9 pg (27.0-32.0); Mean Corpuscular Volume 93.2 fL (80-94); Mean Platelet Vol. 10.7 fl (6.2-12.0); Monocyte# 0.49 X10^3/uL; Monocyte% 6.5 % (0-10); NRBC Flagged by Analyzer 0 % (0-5); Neutrophil # 3.74 X10^3/uL (2.7-7.7); Neutrophil % 49.4 % (47-70); Platelet Count 182 K/mm3 (150-450); RBC Distribution Width CV 15.2 % (11.6-14.6); RBC Distribution Width SD 52.3 fl (35.1-43.9); Red Blood Count 4.55 M/mm3 (4.6-6.2); White Blood Count 7.6 K/mm3 (4.4-11.0)
== END | disposition home or self-care (01) ==
LOC: LAB 08:12
PROVIDERS: PCP Family Medicine; Referring Provider Student in an Organized Health Care Education/Training Program; Visit Provider Student in an Organized Health Care Education/Training Program
DX: Z51.81 Encounter for therapeutic drug level monitoring (principal); F31.9 Bipolar disorder, unspecified
CPT/HCPCS: 36415; 85025

== ENCOUNTER → 2022-12-19 | Outpatient (CLI) | payer MEDICAID, SELFPAY ==
[2022-12-19 10:55] LABS: Absolute Lymphocyte Count 2.43 X10^3/uL (0.83-4.51); Absolute Neutrophil Count 3.7 X10^3/uL (2.0-7.7); Basophil# 0.03 X10^3/uL; Basophil% 0.5 % (0-1); Eosinophil# 0.11 X10^3/uL; Eosinophils% 1.7 % (0-5); Hematocrit 42.9 % (40-54); Hemoglobin 13.6 g/dL (13.0-16.5); Lymphocyte # 2.43 X10^3/ul (0.83-4.51); Lymphocyte % 36.8 % (19-41); Mean Corp Hgb Conc 31.7 g/dL (32-36); Mean Corpuscular Hgb 29.4 pg (27.0-32.0); Mean Corpuscular Volume 92.7 fL (80-94); Mean Platelet Vol. 10.5 fl (6.2-12.0); Monocyte# 0.37 X10^3/uL; Monocyte% 5.6 % (0-10); NRBC Flagged by Analyzer 0 % (0-5); Neutrophil # 3.65 X10^3/uL (2.7-7.7); Neutrophil % 55.1 % (47-70); Platelet Count 178 K/mm3 (150-450); RBC Distribution Width CV 14.7 % (11.6-14.6); RBC Distribution Width SD 50.2 fl (35.1-43.9); Red Blood Count 4.63 M/mm3 (4.6-6.2); White Blood Count 6.6 K/mm3 (4.4-11.0)
== END | disposition home or self-care (01) ==
LOC: LAB 08:25
PROVIDERS: PCP Family Medicine; Referring Provider Student in an Organized Health Care Education/Training Program; Visit Provider Student in an Organized Health Care Education/Training Program
DX: Z51.81 Encounter for therapeutic drug level monitoring (principal); F31.9 Bipolar disorder, unspecified
CPT/HCPCS: 36415; 85025

== ENCOUNTER → 2022-12-26 | Outpatient (CLI) | payer MEDICAID, SELFPAY ==
[2022-12-26 11:18] LABS: Absolute Lymphocyte Count 1.31 X10^3/uL (0.83-4.51); Absolute Neutrophil Count 3.2 X10^3/uL (2.0-7.7); Basophil# 0.03 X10^3/uL; Basophil% 0.6 % (0-1); Eosinophil# 0.07 X10^3/uL; Eosinophils% 1.4 % (0-5); Hemoglobin 12.2 g/dL (13.0-16.5); Lymphocyte # 1.31 X10^3/ul (0.83-4.51); Mean Corp Hgb Conc 31.3 g/dL (32-36); Mean Corpuscular Hgb 29.2 pg (27.0-32.0); Mean Corpuscular Volume 93.3 fL (80-94); Mean Platelet Vol. 10.7 fl (6.2-12.0); Monocyte# 0.44 X10^3/uL; Monocyte% 8.7 % (0-10); NRBC Flagged by Analyzer 0 % (0-5); Neutrophil # 3.18 X10^3/uL (2.7-7.7); Neutrophil % 63.1 % (47-70); Platelet Count 175 K/mm3 (150-450); RBC Distribution Width CV 14.6 % (11.6-14.6); RBC Distribution Width SD 50.7 fl (35.1-43.9); Red Blood Count 4.18 M/mm3 (4.6-6.2)
== END | disposition home or self-care (01) ==
LOC: LAB 08:30
PROVIDERS: PCP Family Medicine; Referring Provider Student in an Organized Health Care Education/Training Program; Visit Provider Student in an Organized Health Care Education/Training Program
DX: Z51.81 Encounter for therapeutic drug level monitoring (principal); F31.9 Bipolar disorder, unspecified
CPT/HCPCS: 36415; 85025

== ENCOUNTER → 2023-01-09 | Outpatient (CLI) | payer MEDICAID, SELFPAY ==
[2023-01-09 10:47] LABS: Absolute Lymphocyte Count 2.77 X10^3/uL (0.83-4.51); Absolute Neutrophil Count 7.8 X10^3/uL (2.0-7.7); Basophil# 0.04 X10^3/uL; Basophil% 0.3 % (0-1); Eosinophil# 0.18 X10^3/uL; Eosinophils% 1.6 % (0-5); Hematocrit 44.3 % (40-54); Hemoglobin 13.7 g/dL (13.0-16.5); Lymphocyte # 2.77 X10^3/ul (0.83-4.51); Lymphocyte % 23.9 % (19-41); Mean Corp Hgb Conc 30.9 g/dL (32-36); Mean Corpuscular Hgb 29.5 pg (27.0-32.0); Mean Corpuscular Volume 95.5 fL (80-94); Mean Platelet Vol. 10.6 fl (6.2-12.0); Monocyte# 0.72 X10^3/uL; Monocyte% 6.2 % (0-10); NRBC Flagged by Analyzer 0 % (0-5); Neutrophil # 7.81 X10^3/uL (2.7-7.7); Neutrophil % 67.5 % (47-70); Platelet Count 166 K/mm3 (150-450); RBC Distribution Width CV 14.6 % (11.6-14.6); RBC Distribution Width SD 50.6 fl (35.1-43.9); Red Blood Count 4.64 M/mm3 (4.6-6.2); White Blood Count 11.6 K/mm3 (4.4-11.0)
== END | disposition home or self-care (01) ==
LOC: LAB 08:47
PROVIDERS: PCP Family Medicine; Referring Provider Student in an Organized Health Care Education/Training Program; Visit Provider Student in an Organized Health Care Education/Training Program
DX: F31.9 Bipolar disorder, unspecified (principal); Z51.81 Encounter for therapeutic drug level monitoring
CPT/HCPCS: 36415; 85025

== ENCOUNTER → 2023-01-23 | Outpatient (CLI) | payer MEDICAID, SELFPAY ==
[2023-01-23 11:05] LABS: Absolute Neutrophil Count 5.2 X10^3/uL (2.0-7.7); Basophil# 0.05 X10^3/uL; Basophil% 0.5 % (0-1); Eosinophil# 0.16 X10^3/uL; Eosinophils% 1.6 % (0-5); Hemoglobin 12.7 g/dL (13.0-16.5); Lymphocyte % 37.4 % (19-41); Mean Corpuscular Volume 93.6 fL (80-94); Mean Platelet Vol. 10.6 fl (6.2-12.0); Monocyte# 0.78 X10^3/uL; Monocyte% 7.9 % (0-10); NRBC Flagged by Analyzer 0 % (0-5); Neutrophil # 5.15 X10^3/uL (2.7-7.7); Neutrophil % 52.2 % (47-70); Platelet Count 181 K/mm3 (150-450); RBC Distribution Width CV 14.7 % (11.6-14.6); RBC Distribution Width SD 51.3 fl (35.1-43.9); Red Blood Count 4.38 M/mm3 (4.6-6.2); White Blood Count 9.9 K/mm3 (4.4-11.0)
== END | disposition home or self-care (01) ==
LOC: LAB 09:28
PROVIDERS: PCP Family Medicine; Visit Provider Student in an Organized Health Care Education/Training Program
DX: Z51.81 Encounter for therapeutic drug level monitoring (principal); F31.9 Bipolar disorder, unspecified
CPT/HCPCS: 36415; 85025

== ENCOUNTER → 2023-02-06 | Outpatient (CLI) | payer MEDICAID, SELFPAY ==
[2023-02-06 10:00] LABS: Absolute Lymphocyte Count 1.97 X10^3/uL (0.83-4.51); Absolute Neutrophil Count 2.5 X10^3/uL (2.0-7.7); Basophil# 0.04 X10^3/uL; Basophil% 0.8 % (0-1); Eosinophil# 0.15 X10^3/uL; Hematocrit 41.4 % (40-54); Hemoglobin 13.1 g/dL (13.0-16.5); Lymphocyte # 1.97 X10^3/ul (0.83-4.51); Lymphocyte % 39.1 % (19-41); Mean Corp Hgb Conc 31.6 g/dL (32-36); Mean Corpuscular Hgb 29.4 pg (27.0-32.0); Mean Platelet Vol. 9.9 fl (6.2-12.0); Monocyte# 0.38 X10^3/uL; Monocyte% 7.5 % (0-10); NRBC Flagged by Analyzer 0 % (0-5); Neutrophil # 2.48 X10^3/uL (2.7-7.7); Neutrophil % 49.2 % (47-70); Platelet Count 206 K/mm3 (150-450); RBC Distribution Width CV 15.1 % (11.6-14.6); RBC Distribution Width SD 51.8 fl (35.1-43.9); Red Blood Count 4.45 M/mm3 (4.6-6.2)
== END | disposition home or self-care (01) ==
LOC: LAB 08:03
PROVIDERS: PCP Family Medicine; Visit Provider Student in an Organized Health Care Education/Training Program
DX: Z51.81 Encounter for therapeutic drug level monitoring (principal); F31.9 Bipolar disorder, unspecified
CPT/HCPCS: 36415; 85025

== ENCOUNTER → 2023-02-21 | Outpatient (CLI) | payer MEDICAID, SELFPAY ==
--- OUTSIDE RECORDS SUMMARY | 2023-02-21 08:54 | XMS RPT_ITS | CCD ---
Author Name Unknown Address [facility] [address] [place] [address] Organization [facility] Care Team Providers Care Sailor Name Role Phone DILIA MORALES, SKYLAR BERNAL Attending Antione Hirsch MD., DR. ITZ Gómez Primary Care SKYLAR Reyes MD Attending Antione Hirsch MD., DR. ITZ Gómez Primary Care UnavailRACHNA Cortez Attending Unavailable RACHNA HOOK Primary Care RACHNA Duran Admitting Unavailable GAURANG BARNES Referring RADHA Valerio Admitting Unavailable HILTON FARIA Attending Unavailable JESSICA ORTA Consulting Unavailable Problems Problem Classification Problem Date Documented Da te Episodic/Chronic Developmental disorders (1 source) Unspecified intellectual disabilities; Translations: [Unspecified intellectual disabilities] Onset: 04-06-2022 Chronic Esophageal disorders (3 sources) Esophageal obstruction; Translations: [Esophageal obstruction] Onset: 04-06-2022 Chronic Gastritis and duodenitis (1 source) Gastritis, unspecified, without bleeding; Translations: [Gastritis, unspecified, without bleeding] Onset: 04-06-2022 Episodic Other gastrointestinal disorders (1 source) Constipation, unspecified; Translations: [Constipation, unspecified constipation type] Onset: 05-13-2022 Episodic Other nervous system disorders (1 source) Encephalopathy, unspecified; Translations: [Encephalopathy] Onset: 05-13-2022 Chronic Unclassified (1 source) Esophagitis, unspecified without bleeding; Translations: [Esophagitis, unspecified without bleeding] Onset: 04-06-2022 Results Test Name Value Interpretation Reference Range Facil ity Encounters Encounter Date Encounter Type Care Provider Facility Start: 05-13-2022 End: 05-19-2022 Evaluation and management of inpatient GAURANG BARNES Facility:[facility] Start: 04-06-2022 End: 04-07-2022 ambulatory RACHNA HOOK [facility] Start: 03-30-2022 End: 03-30-2022 ambulatory SKYLAR DOBBS MD Facility:B Start: 03-22-2022 End: 03-23-2022 ambulatory SKYLAR DOBBS MD Facility:B Payers Date Payer Category Payer Medicaid [id number] 1980 Unknown [id number] 1980 Unknown [id number] 1980 Unknown [id number] Medicaid [id number] Clinical Note 05-18-2022 Note Date & Type Note Facility 05-18-2022 Note HNO ID: [id number] Author: DELILAH Orellana Service: Care Management Author Type: Cash Application Representative Type: Care Mgt Progress Note Filed: 05/18/2022 5:17 PM Note Text: CARE MANAGEMENT PROGRESS NOTE SERVICE DATE: 05/18/2022 SERVICE TIME: 5:12 PM LOS: 5 days SW spoke with patients brother at bedside at length to discuss concerns related to patients hospitalization and symptoms. Concerns relayed to physician. Discussed discharged planning with respects to patient going to [facility]. SW waiting on letter from psychiatry stating patient not a candidate for inpatient psychiatry. Once letter received, it is to be faxed, along with patient clinicals, to [facility] JACQUELINE Stinson at [phone]. Psychiatry to put on patients chart this evening. This letter will be used for patient placement into [facility] that [facility] will initiate. Psychiatry notified yesterday of need for letter and letter not received as of writing of this note. Patient not safe to return home due to behaviors. [facility] JACQUELINE Awan p [phone] f [phone] SIGNATURE: DELILAH Orellana PATIENT NAME: Ghanshyam Hook DATE: May 18, 2022 TIME: 5:12 PM PAGER/CONTACT #: [phone] [facility] Progress note 05-18-2022 Note Date & Type Note Facility 05-18-2022 Note HNO ID: [id number] Author: Mg Oviedo MD Service: Hospital Medicine Author Type: Physician Type: Progress Notes Filed: 05/18/2022 10:49 AM Note Text: DEPARTMENT OF HOSPITAL MEDICINE PROGRESS NOTE SERVICE DATE: 05/18/2022 SERVICE TIME: 6:45 AM Hospital Medicine/Primary Attending: Mg Oviedo MD NIGHT AND WEEKEND COVERAGE: [employer] COVERAGE: After 7pm, please call cross cover pager #[phone] Subjective INTERVAL HPI: Patient seen and examined. Epic reviewed. NAEON. Brother at bedside feels that patient is regressing, does not feel current med rx is correct. Usually patient more responsive, can give one word coherent answers. Asking repeat psych eval v transfer to another facility. Does not feel safe for discharge. MEDICATIONS: Reviewed Objective PHYSICAL EXAM: BP 137/93 Pulse 102 Temp (Src) 97.7 (Axillary) Resp 18 Ht 5' 11 (1.80m) Wt 173 lb 4.8 oz (78.6kg) SpO2 96% BMI 24.18 kg/(m2). O2 Therapy: Room Air Physical Exam Performed GENERAL: Alert, no distress, cooperative LUNGS: Lungs clear to auscultation, Good diaphragmatic excursion CARDIAC: Normal S1 and S2; no rubs, murmurs, or gallops ABDOMEN: Abdomen soft, non-tender, BS normal, No masses or organomegaly EXTREMITIES: Extremities normal, no deformities, edema, clubbing or skin discoloration. Good capillary refill. NEURO: Exam deferred Lines, Drains, and Airways Line Duration Peripheral 05/14/22 1800 Left Arm 20 Gauge 3 days Drain Duration External Collection Device 05/16/22 0000 2 days Patient does not currently have any lines, drains or airways. DATA: Diagnostic tests reviewed for today's visit: Most recent labs and imaging results. No new labs Assessment/Plan Per medical record and HANDP, 41 yo M with hx of bipolar disorder, schizophrenia, developmental delay who presented from [facility] with one week of confusion and agitation. He reports that his legs hurt and NMS was a concern, however neurology advised that this was not NMS. Psychiatry adjusted his Clozapine and Seroquel. A dose of Dantrolene was given at [place]. CT brain and abdomen/pelvis 05/12/22 reportedly showed no acute findings. He had a low grade fever but no reported autonomic instability. Per records, a couple weeks ago he got a piece of apple stuck in his throat and had an EGD which revealed gastritis and esophagitis. Psych is follow, don't think NMS. Awaiting their recs for medication titrations. 1.AMS, ruled out NMS -baseline per father, is alert and oriented to person, typically has one word answers, and cannot carry a conversation. -Neurology consult, they have low suspicion given lack of pyrexia, dysautonomia, rigidity, abnormal labs -Neuro d/c dantrolene -I reviewed labs, lactate 1.0 -UA reviewed, no sign of infection -medical records reviewed 2. R leg pain,resolved -right ankle and knee xray negative 3. Constipation -will continue senna-s 2 tabs BID and miralax 17g daily -dulcolax suppository daily as needed 4. Schizpohrenia 5. Bipolar disorder -seen by psych currently being weaned off of clozaril to maintain at currently dose of 12.5mg in am and 25 mg po hs -continue klonopin, seroquel, buspar and depakote -psych signed off. Will liase with them given brother's concerns that patient still has not improved Dispo: Per brother not as baseline. Remains unready for d/c home. Will d/w psych further adjustments v transfer at family request Medication and Non-Pharmacologic VTE Prophylaxis/Anticoagulants 05/13/22 1430 pneumatic compression stockings ([place]) 05/13/22 0245 vte current anticoag therapy ([place]) 05/13/22 0245 pneumatic compression stockings ([place]) 05/13/22 0245 activity - mobilize patient ([place]) VTE Prophylaxis: VTE prophylaxis appropriate Plan of care discussed with: Provider, RN, Patient Disclaimer: Portions of this note may have been generated using [employer]mension voice recognition software. Reasonable efforts were made to correct any dictation errors that resulted due to the programming of this software but some may still be present. Portions of this note including HPI, ROS, impression/plan, and examination may have been copied forward from 05/17/2022 to May 18, 2022 as to provide important historical information essential in contributing to medical decision making. Documentation has been reviewed and edited as necessary to support clinical decision making for today's visit and to reflect my own independent evaluation of this patient. The time of this note does not reflect the time I saw the patient but the time that this note was written. Mg Oviedo MD Internal Medicine Pager: Team Malick 05/18/22 6:45 AM [facility] Clinical Note 05-17-2022 Note Date & Type Note Facility 05-17-2022 Note HNO ID: [id number] Author: DELILAH Orellana Service: Care Management Author Type: Cash Application Representative Type: Care Mgt Progress Note Filed: 05/17/2022 4:32 PM Note Text: CARE MANAGEMENT PROGRESS NOTE SERVICE DATE: 05/17/2022 SERVICE TIME: 4:28 PM LOS: 4 days SW received call from [facility] Shantell Awan [phone]. She inquired about patient going to [facility] upon discharge. Patient will need a letter from psychiatrist stating that patient is not a candidate for inpatient psychiatric care. [facility] psychiatrist notified. SIGNATURE: DELILAH Orellana PATIENT NAME: Ghanshyam Hook DATE: May 17, 2022 TIME: 4:28 PM PAGER/CONTACT #: [phone] [facility] Progress note 05-17-2022 Note Date & Type Note Facility 05-17-2022 Note HNO ID: [id number] Author: Mona Field MD Service: General Internal Medicine Author Type: Physician Type: Progress Notes Filed: 05/17/2022 2:40 PM Note Text: DEPARTMENT OF HOSPITAL MEDICINE PROGRESS NOTE SERVICE DATE: 05/17/2022 SERVICE TIME: 2:38 PM Hospital Medicine/Primary Attending: Mona Field MD NIGHT AND WEEKEND COVERAGE: [facility] COVERAGE: After 7pm, please call cross cover pager #[phone] Subjective INTERVAL HPI: appreciated psych input continue current meds per family still not at baseline MEDICATIONS: Reviewed Objective PHYSICAL EXAM: BP 120/85 Pulse 102 Temp (Src) 97.9 (Axillary) Resp 18 Ht 5' 11 (1.80m) Wt 173 lb 4.8 oz (78.6kg) SpO2 96% BMI 24.18 kg/(m2). O2 Therapy: Room Air Physical Exam Performed GENERAL: Alert, no distress, cooperative LUNGS: Lungs clear to auscultation, Good diaphragmatic excursion CARDIAC: Normal S1 and S2; no rubs, murmurs, or gallops ABDOMEN: Abdomen soft, non-tender, BS normal, No masses or organomegaly EXTREMITIES: Extremities normal, no deformities, edema, clubbing or skin discoloration. Good capillary refill. NEURO: Exam deferred Lines, Drains, and Airways Line Duration Peripheral 05/14/22 1800 Left Arm 20 Gauge 2 days Drain Duration External Collection Device 05/16/22 0000 1 day Patient does not currently have any lines, drains or airways. DATA: Diagnostic tests reviewed for today's visit: Most recent labs and imaging results. No new labs Assessment/Plan Per medical record and HANDP, 41 yo M with hx of bipolar disorder, schizophrenia, developmental delay who presented from [facility] with one week of confusion and agitation. He reports that his legs hurt and NMS was a concern, however neurology advised that this was not NMS. Psychiatry adjusted his Clozapine and Seroquel. A dose of Dantrolene was given at [place]. CT brain and abdomen/pelvis 05/12/22 reportedly showed no acute findings. He had a low grade fever but no reported autonomic instability. Per records, a couple weeks ago he got a piece of apple stuck in his throat and had an EGD which revealed gastritis and esophagitis. Psych is follow, don't think NMS. Awaiting their recs for medication titrations. 1.AMS, ruled out NMS -baseline per father, is alert and oriented to person, typically has one word answers, and cannot carry a conversation. -Neurology consult, they have low suspicion given lack of pyrexia, dysautonomia, rigidity, abnormal labs -Neuro d/c dantrolene -I reviewed labs, lactate 1.0 -UA reviewed, no sign of infection -medical records reviewed 2. R leg pain,resolved -right ankle and knee xray negative 3. Constipation -will continue senna-s 2 tabs BID and miralax 17g daily -dulcolax suppository daily as needed 4. Schizpohrenia 5. Bipolar disorder -seen by psych currently being weaned off of clozaril to maintain at currently dose of 12.5mg in am and 25 mg po hs -continue klonopin, seroquel, buspar and depakote -psych signed off Dispo: possible dc home in am Medication and Non-Pharmacologic VTE Prophylaxis/Anticoagulants 05/13/22 1430 pneumatic compression stockings ([place]) 05/13/22 0245 vte current anticoag therapy ([place]) 05/13/22 0245 pneumatic compression stockings ([place]) 05/13/22 0245 activity - mobilize patient ([place]) VTE Prophylaxis: VTE prophylaxis appropriate Disposition: Home Plan of care discussed with: Provider, RN, Patient SIGNATURE: Mona Field MD PATIENT NAME: Ghanshyam Hook DATE: May 17, 2022 TIME: 2:38 PM etx [id number] [facility] Clinical Note 05-16-2022 Note Date & Type Note Facility 05-16-2022 Note HNO ID: [id number] Author: DELILAH Orellana Service: Care Management Author Type: Cash Application Representative Type: Care Mgt Progress Note Filed: 05/16/2022 4:59 PM Note Text: CARE MANAGEMENT PROGRESS NOTE SERVICE DATE: 05/16/2022 SERVICE TIME: 4:57 PM LOS: 3 days SW/CM will continue to follow patient for discharge planning purposes. Patient lives at home with his brother and father. Family assists at home as needed. He has [facility] with [facility]. SIGNATURE: DELILAH Orellana PATIENT NAME: Ghanshyam Hook DATE: May 16, 2022 TIME: 4:57 PM PAGER/CONTACT #: [phone] [facility] Progress note 05-16-2022 Note Date & Type Note Facility 05-16-2022 Note HNO ID: [id number] Author: Mona Field MD Service: General Internal Medicine Author Type: Physician Type: Progress Notes Filed: 05/16/2022 2:59 PM Note Text: DEPARTMENT OF HOSPITAL MEDICINE PROGRESS NOTE SERVICE DATE: 05/16/2022 SERVICE TIME: 2:54 PM Hospital Medicine/Primary Attending: Mona Field MD NIGHT AND WEEKEND COVERAGE: [employer] COVERAGE: After 7pm, please call cross cover pager #[phone] Subjective INTERVAL HPI: patient in bed; updated father at bedside; clozaril being weaned MEDICATIONS: Reviewed Objective PHYSICAL EXAM: BP 117/82 Pulse 85 Temp (Src) 97.9 (Axillary) Resp 18 Ht 5' 11 (1.80m) Wt 173 lb 4.8 oz (78.6kg) SpO2 99% BMI 24.18 kg/(m2). O2 Therapy: Room Air Physical Exam Performed GENERAL: awake LUNGS: Lungs clear to auscultation, Good diaphragmatic excursion CARDIAC: Normal S1 and S2; no rubs, murmurs, or gallops ABDOMEN: Abdomen soft, non-tender, BS normal, No masses or organomegaly EXTREMITIES: Extremities normal, no deformities, edema, clubbing or skin discoloration. Good capillary refill. NEURO: Exam deferred Lines, Drains, and Airways Line Duration Peripheral 05/14/22 1800 Left Arm 20 Gauge 1 day Drain Duration External Collection Device 05/16/22 0000 <1 day Patient does not currently have any lines, drains or airways. DATA: Diagnostic tests reviewed for today's visit: Most recent labs and imaging results. Component Latest Ref Rng AND Units 05/16/2022 WBC 3.70 - 11.00 k/uL 5.21 RBC 4.20 - 6.00 m/uL 4.50 Hemoglobin 13.0 - 17.0 g/dL 13.4 Hematocrit 39.0 - 51.0 % 40.9 MCV 80.0 - 100.0 fL 90.9 MCH 26.0 - 34.0 pg 29.8 MCHC 30.5 - 36.0 g/dL 32.8 RDW-CV 11.5 - 15.0 % 13.9 Platelet Count 150 - 400 k/uL 162 MPV 9.0 - 12.7 fL 10.6 Neut% % 51.7 Abs Neut (ANC) 1.45 - 7.50 k/uL 2.70 Lymph% % 36.9 Abs Lymph 1.00 - 4.00 k/uL 1.92 Potter% % 8.3 Abs Potter <0.87 k/uL 0.43 Eosin% % 2.3 Abs Eosin <0.46 k/uL 0.12 Baso% % 0.4 Abs Baso <0.11 k/uL <0.03 Immature Gran % % 0.4 IMMATURE GRANS (ABS) <0.10 k/uL <0.03 NRBC /100 WBC 0.0 Absolute nRBC <0.01 k/uL <0.01 DTYPE Auto Protein, Total 6.3 - 8.0 g/dL 6.6 Albumin 3.9 - 4.9 g/dL 3.8 (L) Calcium 8.5 - 10.2 mg/dL 9.4 Bilirubin, Total 0.2 - 1.3 mg/dL 0.3 Alkaline Phosphatase 38 - 113 U/L 44 AST 14 - 40 U/L 9 (L) ALT 10 - 54 U/L <5 (L) Glucose 74 - 99 mg/dL 104 (H) BUN 9 - 24 mg/dL 26 (H) Creatinine 0.73 - 1.22 mg/dL 0.66 (L) Sodium 136 - 144 mmol/L 138 Potassium 3.7 - 5.1 mmol/L 3.9 Chloride 97 - 105 mmol/L 105 CO2 22 - 30 mmol/L 23 Anion Gap 9 - 18 mmol/L 10 eGFR >=60 mL/min/1.73mA? 122 Assessment/Plan Per medical record and HANDP, 41 yo M with hx of bipolar disorder, schizophrenia, developmental delay who presented from [facility] with one week of confusion and agitation. He reports that his legs hurt and NMS was a concern, however neurology advised that this was not NMS. Psychiatry adjusted his Clozapine and Seroquel. A dose of Dantrolene was given at [place]. CT brain and abdomen/pelvis 05/12/22 reportedly showed no acute findings. He had a low grade fever but no reported autonomic instability. Per records, a couple weeks ago he got a piece of apple stuck in his throat and had an EGD which revealed gastritis and esophagitis. Psych is follow, don't think NMS. Awaiting their recs for medication titrations. 1.AMS, ruled out NMS -baseline per father, is alert and oriented to person, typically has one word answers, and cannot carry a conversation. -Neurology consult, they have low suspicion given lack of pyrexia, dysautonomia, rigidity, abnormal labs -Neuro d/c dantrolene -I reviewed labs, lactate 1.0 -UA reviewed, no sign of infection -medical records reviewed 2. R leg pain,resolved -right ankle and knee xray negative 3. Constipation -will continue senna-s 2 tabs BID and miralax 17g daily -dulcolax suppository daily as needed 4. Schizpohrenia 5. Bipolar disorder -seen by psych currently being weaned off of clozaril -continue klonopin, seroquel, buspar and depakote Medication and Non-Pharmacologic VTE Prophylaxis/Anticoagulants 05/13/22 1430 pneumatic compression stockings ([place]) 05/13/22 0245 vte current anticoag therapy ([place]) 05/13/22 0245 pneumatic compression stockings ([place]) 05/13/22 0245 activity - mobilize patient ([place]) VTE Prophylaxis: VTE prophylaxis appropriate Disposition: Home Plan of care discussed with: Provider, RN, Patient SIGNATURE: Mona Field MD PATIENT NAME: Ghanshyam Hook DATE: May 16, 2022 TIME: 2:54 PM etx [id number] [facility] Plan of care note 05-15-2022 Note Date & Type Note Facility 05-15-2022 Note HNO ID: [id number] Author: Viri Jang MD Service: Psychiatry Author Type: Resident Type: Plan of Care Filed: 05/15/2022 9:34 PM Note Text: Pt's outpatient psychiatrist, Dr. Jahaira Whitney, called back. I discussed the patient's clinical and behavioral status with her. According to Dr. Whitney, Ghanshyam has several siblings who take turns taking care of him. Ghanshyam is also established with [facility] for many years now, and has a dedicated direct service worker there. Dr. Whitney's senior care plan for Ghanshyam is to gradually decrease the dose of Clozaril, and wean it off completely. The dose was higher earlier, and has been reduced very gradually over months to years. He is prone to decompensation with dose changes. Ghanshyam has responded well to an increase in Seroquel dose, and it keeps him calm too. The long-term plan is for a single antipsychotic on the prescription. Dr. Whitney feels that while admitted on medical floor and under close monitoring, a dose reduction of Clozaril might be attempted. (His most recent ANC is 3.65 k/uL, on 05/15/2022). Patient gets a Depakote level check every month. (Patient's most recent valproate level is 51.0 ug/mL, on 05/13/2022). The leg pain is recently reported by the patient, when he was brought in for an office visit to Dr. Whitney last week. Patient had not reported any arm pain at that time. Based on the above conversation, a small, gradual reduction of the Clozaril dose may be attempted on the medical floor. Starting tomorrow, we shall reduce the dose to 12.5 mg AM + 25 mg bedtime. At present, patient carries the risk of further decompensation if put in the acute, stressful milieu of [address]. Viri Jang MD PGY-2 Resident Psychiatry and Behavioral Sciences [facility] Progress note 05-15-2022 Note Date & Type Note Facility 05-15-2022 Note HNO ID: [id number] Author: Benjamin Orozco DO Service: Hospital Medicine Author Type: Physician Type: Progress Notes Filed: 05/15/2022 2:09 PM Note Text: DEPARTMENT OF HOSPITAL MEDICINE PROGRESS NOTE SERVICE DATE: 05/15/2022 SERVICE TIME: 2:02 PM Hospital Medicine/Primary Attending: Benjamin Orozco DO NIGHT AND WEEKEND COVERAGE: After 7pm please page [phone] CHIEF COMPLAINT: no new complaints, tired SUBJECTIVE: Pt seen and examined. Somnolent today, unreliable ROS given mental status, doesn't want to answer or follow commands given sleepiness. OBJECTIVE: PHYSICAL EXAM: BP 125/92 Pulse 112 Temp (Src) 97.9 (Axillary) Resp 18 Ht 5' 11 (1.80m) Wt 173 lb 4.8 oz (78.6kg) SpO2 99% BMI 24.18 kg/(m2). O2 Therapy: Room Air General - AANDO, NAD, somnolent CV - RRR S1 S2, No rubs or gallops RESP - CTAB/L, No wheezes, ronchi, rales ABD - soft, NT, ND +bowel sounds EXT - no gross joint deformity, no clubbing, cyanosis, or edema NEURO - CN II-XII grossly intact, did not follow commands MEDICATIONS: Current Facility-Administered Medications Medication Dose Route Frequency acetaminophen 650 mg tab(s) (TYLENOL) 650 mg ORAL/FEEDING TUBE q 4 H PRN polyethylene glycol 3350 17 g packet 17 g ORAL DAILY senna-docusate 8.6-50 mg 2 tablet (SENNA-S) 2 tablet ORAL BID busPIRone 15 mg tab(s) (BUSPAR) 15 mg ORAL TID clonazePAM 0.5 mg tab(s) (KlonoPIN) 0.5 mg ORAL DAILY WITH BREAKFAST clonazePAM 0.5 mg tab(s) (KlonoPIN) 0.5 mg ORAL DAILY wLUNCH divalproex DR 250 mg tab(s) (DEPAKOTE) 250 mg ORAL DAILY AT [address] 500 mg tab(s) (DEPAKOTE) 500 mg ORAL BID cloZAPine 25 mg tab(s) (CLOZARIL) 25 mg ORAL BID QUEtiapine (SEROquel) tab(s) 125 mg 125 mg ORAL BID pantoprazole DR 40 mg tab(s) (PROTONIX) 40 mg ORAL DAILY (6 AM) NaCl 0.9% iv flush bag 20 mL INTRAVENOUS PRN bisacodyl 10 mg suppository (DULCOLAX) 10 mg RECTAL DAILY PRN keTORolac 30 mg injection (Toradol) 30 mg INTRAVENOUS q 6 H PRN DATA: Diagnostic tests reviewed for today's visit: CBC: Recent Labs 05/15/22 0435 WBC 5.96 RBC 4.73 HB 14.0 HCT 42.9 PLT 166 MCV 90.7 MCH 29.6 MPV 10.3 Coags: No results for input(s): PT, INR, APTT in the last 24 hours. BMP: Recent Labs 05/15/22 0435 NA 141 K 3.6* CHLOR 105 CO2 22 BUN 21 CREAT 0.67* GLUC 110* CMP: Recent Labs 05/15/22 0435 NA 141 K 3.6* CHLOR 105 CO2 22 BUN 21 CREAT 0.67* GLUC 110* TPROT 7.5 CA 9.8 TBILI 0.3 ALKPHOS 46 ALT <5* AST 9* ANION 14 Cardiac Enzymes: No results for input(s): CK, MB, CKMB, TROPT in the last 24 hours. Liver Function, Amylase, Lipase: Recent Labs 05/15/22 0435 TPROT 7.5 ALB 4.2 ALT <5* AST 9* ALKPHOS 46 TBILI 0.3 MG/PHOS: No results for input(s): MG, P in the last 24 hours. Renal Panel: Recent Labs 05/15/22 0435 CREAT 0.67* BUN 21 GLUC 110* CA 9.8 CHLOR 105 K 3.6* CO2 22 NA 141 Heme: No results for input(s): RETICP, ABSRETIC, LD, JUAN DANIEL, FE, TIBC, TRANSFERSAT in the last 24 hours. No results found for: UALBCR Estimated Creatinine Clearance: 156.1 mL/min (A) (based on SCr of 0.67 mg/dL (L)). Most recent labs and radiology results reviewed. Problem List Encephalopathy POA: Yes Constipation POA: Yes Assessment/Plan Per medical record and HANDP, 41 yo M with hx of bipolar disorder, schizophrenia, developmental delay who presented from [facility] with one week of confusion and agitation. He reports that his legs hurt and NMS was a concern, however neurology advised that this was not NMS. Psychiatry adjusted his Clozapine and Seroquel. A dose of Dantrolene was given at [place]. CT brain and abdomen/pelvis 05/12/22 reportedly showed no acute findings. He had a low grade fever but no reported autonomic instability. Per records, a couple weeks ago he got a piece of apple stuck in his throat and had an EGD which revealed gastritis and esophagitis. Psych is follow, don't think NMS. Awaiting their recs for medication titrations. #AMS, concern for possible NMS, will need r/o -baseline per father, is alert and oriented to person, typically has one word answers, and cannot carry a conversation. -Neurology consult, they have low suspicion given lack of pyrexia, dysautonomia, rigidity, abnormal labs -Neuro d/c dantrolene -I reviewed labs, lactate 1.0 -UA reviewed, no sign of infection -medical records reviewed #R leg pain? -he complains of some R leg pain, moans when I palpate the leg, -I reviewed XR R ankle and no acute fractures, the XR R knee is still pending. I reviewed ankel XR with family at bedside. -I reviewed labs including CRP 0.3 and ESR 2 -Family wants an MRI back, explaiend that at this time no indication for that, but will check an XR thoaracic and lumbar spine in setting of his leg pain. Pending results and clinical progression, can consider CT or MRI if appropraite, but may need anesthesia if truly deem (more content not included)... [facility] Progress note 05-14-2022 Note Date & Type Note Facility 05-14-2022 Note HNO ID: [id number] Author: Benjamin Orozco DO Service: Hospital Medicine Author Type: Physician Type: Progress Notes Filed: 05/14/2022 4:43 PM Note Text: DEPARTMENT OF HOSPITAL MEDICINE PROGRESS NOTE SERVICE DATE: 05/14/2022 SERVICE TIME: 4:37 PM Hospital Medicine/Primary Attending: Benjamin Orozco DO NIGHT AND WEEKEND COVERAGE: After 7pm please page [phone] CHIEF COMPLAINT: R leg pain SUBJECTIVE: Pt seen and examined. During evala nd exam complains of R leg pain. Poor historian and unreliable ROS, although otherwise seems to deny CP, SOB, NVD, headache, fever/chills or abdominal pain during my exam. OBJECTIVE: PHYSICAL EXAM: BP 119/85 Pulse 88 Temp (Src) 98.4 (Axillary) Resp 18 Ht 5' 11 (1.80m) Wt 173 lb 4.8 oz (78.6kg) SpO2 96% BMI 24.18 kg/(m2). O2 Therapy: Room Air General - AANDO to person only, NAD, Calm CV - RRR S1 S2, No rubs or gallops RESP - CTAB, No wheezes, ronchi, rales ABD - soft, NT, ND +BS all quads EXT - no gross joint deformity, no clubbing, cyanosis, edema, R leg TTP? Seemed to moan NEURO - CN II-XII grossly intact, did not follow most commands MEDICATIONS: Current Facility-Administered Medications Medication Dose Route Frequency acetaminophen 650 mg tab(s) (TYLENOL) 650 mg ORAL/FEEDING TUBE q 4 H PRN polyethylene glycol 3350 17 g packet 17 g ORAL DAILY senna-docusate 8.6-50 mg 2 tablet (SENNA-S) 2 tablet ORAL BID busPIRone 15 mg tab(s) (BUSPAR) 15 mg ORAL TID clonazePAM 0.5 mg tab(s) (KlonoPIN) 0.5 mg ORAL DAILY WITH BREAKFAST clonazePAM 0.5 mg tab(s) (KlonoPIN) 0.5 mg ORAL DAILY wLUNCH divalproex DR 250 mg tab(s) (DEPAKOTE) 250 mg ORAL DAILY AT [address] 500 mg tab(s) (DEPAKOTE) 500 mg ORAL BID cloZAPine 25 mg tab(s) (CLOZARIL) 25 mg ORAL BID QUEtiapine (SEROquel) tab(s) 125 mg 125 mg ORAL BID pantoprazole DR 40 mg tab(s) (PROTONIX) 40 mg ORAL DAILY (6 AM) NaCl 0.9% iv flush bag 20 mL INTRAVENOUS PRN bisacodyl 10 mg suppository (DULCOLAX) 10 mg RECTAL DAILY PRN DATA: Diagnostic tests reviewed for today's visit: CBC: Recent Labs 05/14/22438 WBC 6.55 RBC 4.41 HB 13.1 HCT 40.6 PLT 142* MCV 92.1 MCH 29.7 MPV 10.4 Coags: No results for input(s): PT, INR, APTT in the last 24 hours. BMP: Recent Labs 05/14/22438 NA 140 K 3.8 CHLOR 106* CO2 24 BUN 15 CREAT 0.76 GLUC 96 CMP: Recent Labs 05/14/22438 NA 140 K 3.8 CHLOR 106* CO2 24 BUN 15 CREAT 0.76 GLUC 96 TPROT 6.7 CA 9.3 TBILI 0.3 ALKPHOS 43 ALT <5* AST 9* ANION 10 Cardiac Enzymes: No results for input(s): CK, MB, CKMB, TROPT in the last 24 hours. Liver Function, Amylase, Lipase: Recent Labs 05/14/22438 TPROT 6.7 ALB 3.8* ALT <5* AST 9* ALKPHOS 43 TBILI 0.3 MG/PHOS: No results for input(s): MG, P in the last 24 hours. Renal Panel: Recent Labs 05/14/22438 CREAT 0.76 BUN 15 GLUC 96 CA 9.3 CHLOR 106* K 3.8 CO2 24 NA 140 Heme: No results for input(s): RETICP, ABSRETIC, LD, JUAN DANIEL, FE, TIBC, TRANSFERSAT in the last 24 hours. No results found for: UALBCR Estimated Creatinine Clearance: 137.6 mL/min (based on SCr of 0.76 mg/dL). Most recent labs and radiology results reviewed. Problem List Encephalopathy POA: Yes Constipation POA: Yes Assessment/Plan Per medical record and HANDP, 41 yo M with hx of bipolar disorder, schizophrenia, developmental delay who presented from [facility] with one week of confusion and agitation. He reports that his legs hurt and NMS was a concern, however neurology advised that this was not NMS. Psychiatry adjusted his Clozapine and Seroquel. A dose of Dantrolene was given at [place]. CT brain and abdomen/pelvis 05/12/22 reportedly showed no acute findings. He had a low grade fever but no reported autonomic instability. Per records, a couple weeks ago he got a piece of apple stuck in his throat and had an EGD which revealed gastritis and esophagitis. #AMS, concern for possible NMS, will need r/o -baseline per father, is alert and oriented to person, typically has one word answers, and cannot carry a conversation. -Neurology consult, they have low suspicion given lack of pyrexia, dysautonomia, rigidity, abnormal labs -he moving his extremities today and talking quite a bit -Neuro d/c dantrolene -I reviewed labs, lactate 1.0 -UA reviewed, no sign of infection -medical records reviewed #R leg pain? -he complains of some R leg pain, moans when I palpate the leg, So I will check R knee and ankle XR for completeness if we are able -I will also check CRP and ESR, doubt myositis as just given legs #Constipation -will continue senna-s 2 tabs BID and miralax 17g daily -dulcolax suppository daily as needed #Schizpohrenia #Bipolar disorder -Consult Psych, until seen, will continue buspar 15mg TID, klonopin, depakote, and seroquel 125mg BID -Per Dr Appiah, they will look into if his clozapine can be increase (more content not included)... [facility] Progress note 05-13-2022 Note Date & Type Note Facility 05-13-2022 Note HNO ID: [id number] Author: Benjamin Orozco DO Service: Hospital Medicine Author Type: Physician Type: Progress Notes Filed: 05/13/2022 2:17 PM Note Text: DEPARTMENT OF HOSPITAL MEDICINE PROGRESS NOTE SERVICE DATE: 05/13/2022 SERVICE TIME: 8:02 AM Hospital Medicine/Primary Attending: Benjamin Orozco DO NIGHT AND WEEKEND COVERAGE: After 7pm please page [phone] CHIEF COMPLAINT: no complaints SUBJECTIVE: Pt seen and examined. Father at bedside to provide history. The patient only told me his name, didn't answer any other questions. He wouldn't follow my commands. VSS. Unable to provide ROS given mental status. Had large bowel movement. OBJECTIVE: PHYSICAL EXAM: BP 131/90 Pulse 71 Temp (Src) 97.7 (Oral) Resp 20 Ht 5' 11 (1.80m) Wt 173 lb 4.8 oz (78.6kg) SpO2 97% BMI 24.18 kg/(m2). O2 Therapy: Room Air General - AANDO to person only, NAD, Calm CV - RRR S1 S2, No M/R/G RESP - CTA B/L No wheezes, ronchi, rales ABD - soft, NT, ND +BS EXT - no gross joint deformity, no clubbing, cyanosis, edema NEURO - CN II-XII grossly intact, did not follow commands MEDICATIONS: Current Facility-Administered Medications Medication Dose Route Frequency acetaminophen 650 mg tab(s) (TYLENOL) 650 mg ORAL/FEEDING TUBE q 4 H PRN polyethylene glycol 3350 17 g packet 17 g ORAL DAILY senna-docusate 8.6-50 mg 2 tablet (SENNA-S) 2 tablet ORAL BID busPIRone 15 mg tab(s) (BUSPAR) 15 mg ORAL TID clonazePAM 0.5 mg tab(s) (KlonoPIN) 0.5 mg ORAL DAILY WITH BREAKFAST clonazePAM 0.5 mg tab(s) (KlonoPIN) 0.5 mg ORAL DAILY wLUNCH divalproex DR 250 mg tab(s) (DEPAKOTE) 250 mg ORAL DAILY AT [address] 500 mg tab(s) (DEPAKOTE) 500 mg ORAL BID cloZAPine 25 mg tab(s) (CLOZARIL) 25 mg ORAL BID QUEtiapine (SEROquel) tab(s) 125 mg 125 mg ORAL BID pantoprazole DR 40 mg tab(s) (PROTONIX) 40 mg ORAL DAILY (6 AM) NaCl 0.9% iv flush bag 20 mL INTRAVENOUS PRN DATA: Diagnostic tests reviewed for today's visit: CBC: Recent Labs 05/13/22 0505 WBC 6.13 RBC 4.14* HB 12.3* HCT 37.9* PLT 135* MCV 91.5 MCH 29.7 MPV 10.4 Coags: No results for input(s): PT, INR, APTT in the last 24 hours. BMP: Recent Labs 05/13/22 0505 NA 137 K 4.2 CHLOR 105 CO2 23 BUN 11 CREAT 0.69* GLUC 88 CMP: Recent Labs 05/13/22 0505 NA 137 K 4.2 CHLOR 105 CO2 23 BUN 11 CREAT 0.69* GLUC 88 TPROT 6.8 CA 9.6 MG 2.3 TBILI 0.5 ALKPHOS 43 ALT <5* AST 10* ANION 9 Cardiac Enzymes: Recent Labs 05/13/22 0505 CK 48* Liver Function, Amylase, Lipase: Recent Labs 05/13/22 0505 TPROT 6.8 ALB 4.0 ALT <5* AST 10* ALKPHOS 43 TBILI 0.5 MG/PHOS: Recent Labs 05/13/22 0505 MG 2.3 Renal Panel: Recent Labs 05/13/22 0505 CREAT 0.69* BUN 11 GLUC 88 CA 9.6 CHLOR 105 K 4.2 CO2 23 NA 137 Heme: No results for input(s): RETICP, ABSRETIC, LD, JUAN DANIEL, FE, TIBC, TRANSFERSAT in the last 24 hours. No results found for: UALBCR Estimated Creatinine Clearance: 151.6 mL/min (A) (based on SCr of 0.69 mg/dL (L)). Most recent labs and radiology results reviewed. Problem List Encephalopathy POA: Yes Constipation POA: Yes Assessment/Plan Per medical record and HANDP, 41 yo M with hx of bipolar disorder, schizophrenia, developmental delay who presented from [facility] with one week of confusion and agitation. He reports that his legs hurt and NMS was a concern, however neurology advised that this was not NMS. Psychiatry adjusted his Clozapine and Seroquel. A dose of Dantrolene was given at [place]. CT brain and abdomen/pelvis 05/12/22 reportedly showed no acute findings. He had a low grade fever but no reported autonomic instability. Per records, a couple weeks ago he got a piece of apple stuck in his throat and had an EGD which revealed gastritis and esophagitis. #AMS, concern for possible NMS, will need r/o -baseline per father, is alert and oriented to person, typically has one word answers, and cannot carry a conversation. -Neurology consult, they have low suspicion given lack of pyrexia, dysautonomia, rigidity, abnormal labs -he is very somnolent today, not following commands, not really answering my questions. -Neuro d/c dantrolene -I reviewed labs, lactate 1.0 -UA reviewed, no sign of infection -medical records reviewed -the pain he complained of prior to admission per father is not present any longer #Constipation -will continue current bowel regimen including senna-s 2 tabs BID and miralax 17g daily -I will add dulcolax suppository daily as needed #Schizpohrenia #Bipolar disorder -Consult Psych, until seen, will continue buspar 15mg TID, klonopin, depakote, and seroquel 125mg BID -I discussed case with Dr Appiah, and they will look into if his cloazpine can be increased, and if he's ever had low ANC. They ideally would like to increase his clozapine. VTE Prophylaxis: Pneumatic Compression Device (more content not included)... [facility] Summary Purpose Family History No Family History Records FoundNo Family History Records FoundNo Family History Records Found Advance Directives No Advanced Directives Records FoundNo Advanced Directives Records FoundNo Advanced Directives Records Found Additional Source Comments (unrecognized sect ion and content) No Status Records FoundNo Status Records FoundNo Status Records Found INFORMATION SOURCE (unrecogn ized section and content) DATE CREATED AUTHOR AUTHOR'S ORGANIZ ATION 04/21/2022 [facility] DATE CREATED AUTHOR AUTHOR'S ORGANIZ ATION 05/27/2022 [facility] FOR RECORDS PERTAINING TO PATIENTS WHO ARE OR HAVE BEEN ENROLLED IN A CHEMICAL DEPENDENCY/SUBSTANCEABUSE PROGRAM, SOME INFORMATION MAY BE OMITTED. This clinical summary was aggregated from multiple sources. Caution should be exercised in using it in the provision of clinical care. This summary normalizes information from multiple sources, and as a consequence, information in this document may materially change the coding, format and clinical context of patient data. In addition, data may be omitted in some cases. CLINICAL DECISIONS SHOULD BE BASED ON THE PRIMARY CLINICAL RECORDS. [facility] [employer] [facility]. provides no warranty or guarantee of the accuracy or completeness of information in this document.
[2023-02-21 10:09] LABS: Absolute Lymphocyte Count 1.48 X10^3/uL (0.83-4.51); Absolute Neutrophil Count 2.8 X10^3/uL (2.0-7.7); Basophil# 0.03 X10^3/uL; Basophil% 0.6 % (0-1); Eosinophil# 0.17 X10^3/uL; Eosinophils% 3.3 % (0-5); Hematocrit 39.7 % (40-54); Hemoglobin 12.4 g/dL (13.0-16.5); Lymphocyte # 1.48 X10^3/ul (0.83-4.51); Mean Corp Hgb Conc 31.2 g/dL (32-36); Mean Corpuscular Hgb 29.3 pg (27.0-32.0); Mean Corpuscular Volume 93.9 fL (80-94); Mean Platelet Vol. 9.5 fl (6.2-12.0); Monocyte# 0.63 X10^3/uL; Monocyte% 12.4 % (0-10); NRBC Flagged by Analyzer 0 % (0-5); Neutrophil # 2.77 X10^3/uL (2.7-7.7); Neutrophil % 54.3 % (47-70); Platelet Count 155 K/mm3 (150-450); RBC Distribution Width CV 15.7 % (11.6-14.6); RBC Distribution Width SD 54.4 fl (35.1-43.9); Red Blood Count 4.23 M/mm3 (4.6-6.2); White Blood Count 5.1 K/mm3 (4.4-11.0)
== END | disposition home or self-care (01) ==
LOC: LAB 08:31
PROVIDERS: PCP Family Medicine; Visit Provider Student in an Organized Health Care Education/Training Program
DX: Z51.81 Encounter for therapeutic drug level monitoring (principal); F31.9 Bipolar disorder, unspecified
CPT/HCPCS: 36415; 85025

== ENCOUNTER → 2023-03-07 | Outpatient (CLI) | payer MEDICAID, SELFPAY ==
[2023-03-07 11:33] LABS: Absolute Lymphocyte Count 1.66 X10^3/uL (0.83-4.51); Absolute Neutrophil Count 2.4 X10^3/uL (2.0-7.7); Basophil# 0.03 X10^3/uL; Basophil% 0.7 % (0-1); Eosinophil# 0.12 X10^3/uL; Eosinophils% 2.6 % (0-5); Hematocrit 40.3 % (40-54); Hemoglobin 12.9 g/dL (13.0-16.5); Lymphocyte # 1.66 X10^3/ul (0.83-4.51); Lymphocyte % 36.2 % (19-41); Mean Corpuscular Hgb 29.2 pg (27.0-32.0); Mean Corpuscular Volume 91.2 fL (80-94); Mean Platelet Vol. 10.4 fl (6.2-12.0); Monocyte# 0.35 X10^3/uL; Monocyte% 7.6 % (0-10); NRBC Flagged by Analyzer 0 % (0-5); Neutrophil # 2.42 X10^3/uL (2.7-7.7); Neutrophil % 52.7 % (47-70); Platelet Count 170 K/mm3 (150-450); RBC Distribution Width SD 50.7 fl (35.1-43.9); Red Blood Count 4.42 M/mm3 (4.6-6.2); White Blood Count 4.6 K/mm3 (4.4-11.0)
--- OUTSIDE RECORDS SUMMARY | 2023-03-07 11:35 | XMS RPT_ITS | CCD ---
Author Name Unknown Address [facility] [address] [place] [address] Organization [facility] Care Team Providers Care Chipper Feeder Name Role Phone DILIA MORALES, SKYLAR BERNAL [...] Evaluation and management of inpatient GAURANG BARNES Facility:[facility] Start: 04-06-2022 End: 04-07-2022 ambulatory RACHNA HOOK [facility] Start: 03-30-2022 End: 03-30-2022 ambulatory SKYLAR DOBBS MD Facility:B Start: 03-22-2022 End: 03-23-2022 ambulatory SKYLAR DOBBS MD Facility:B Payers Date Payer Category Payer Medicaid [id number] 1980 Unknown [id number] 1980 Unknown [id number] 1980 Unknown [id number] Medicaid [id number] Clinical Note 05-18-2022 Note Date & Type Note Facility 05-18-2022 Note HNO ID: [id number] Author: DELILAH Orellana Service: Care Management Author Type: House Cleaner Type: Care Mgt Progress Note Filed: 05/18/2022 5:17 PM Note Text: CARE MANAGEMENT PROGRESS NOTE SERVICE DATE: 05/18/2022 SERVICE TIME: 5:12 PM LOS: 5 days SW spoke with patients brother at bedside at length to discuss concerns related to patients hospitalization and symptoms. Concerns relayed to physician. Discussed discharged planning with respects to patient going to [facility]. SW waiting on letter from psychiatry stating patient not a candidate for inpatient psychiatry. Once letter received, it is to be faxed, along with patient clinicals, to [facility] JACQUELINE Stinson at [phone]. Psychiatry to put on patients chart this evening. This letter will be used for patient placement into [facility] that [facility] will initiate. Psychiatry notified yesterday of need for letter and letter not received as of writing of this note. Patient not safe to return home due to behaviors. [facility] JACQUELINE Awan p [phone] f [phone] SIGNATURE: DELILAH Orellana PATIENT NAME: Ghanshyam Hook DATE: May 18, 2022 TIME: 5:12 PM PAGER/CONTACT #: [phone] [facility] Progress note 05-18-2022 Note Date & Type Note Facility 05-18-2022 Note HNO ID: [id number] Author: Mg Oviedo MD Service: Hospital Medicine Author Type: Physician Type: Progress Notes Filed: 05/18/2022 10:49 AM Note Text: DEPARTMENT OF HOSPITAL MEDICINE PROGRESS NOTE SERVICE DATE: 05/18/2022 SERVICE TIME: 6:45 AM Hospital Medicine/Primary Attending: Mg Oviedo MD NIGHT AND WEEKEND COVERAGE: [place] COVERAGE: After 7pm, please call cross cover pager #[phone] Subjective INTERVAL HPI: Patient seen and examined. [...] disorder, schizophrenia, developmental delay who presented from [facility] with one week of confusion and agitation. He reports that his legs hurt and NMS was a concern, however neurology advised that this was not NMS. Psychiatry adjusted his Clozapine and Seroquel. A dose of Dantrolene was given at [place]. CT brain and abdomen/pelvis 05/12/22 reportedly showed [...] VTE Prophylaxis/Anticoagulants 05/13/22 1430 pneumatic compression stockings ([place], [place]) 05/13/22 0245 vte current anticoag therapy ([place] 05/13/22 0245 pneumatic compression stockings ([place] 05/13/22 0245 activity - mobilize [place] ([place] VTE Prophylaxis: VTE prophylaxis appropriate Plan of care discussed with: Provider, RN, Patient Disclaimer: Portions of this note may have been generated using [employer] voice recognition software. Reasonable efforts were made [...] Medicine Pager: Team Malick 05/18/22 6:45 AM [facility] Clinical Note 05-17-2022 Note Date & Type Note Facility 05-17-2022 Note HNO ID: [id number] Author: DELILAH Orellana Service: Care Management Author Type: House Cleaner Type: Care Mgt Progress Note Filed: 05/17/2022 4:32 PM Note Text: CARE MANAGEMENT PROGRESS NOTE SERVICE DATE: 05/17/2022 SERVICE TIME: 4:28 PM LOS: 4 days SW received call from [facility] Shantell Awna [phone]. She inquired about patient going to [facility] upon discharge. Patient will need a letter from psychiatrist stating that patient is not a candidate for inpatient psychiatric care. [facility] psychiatrist notified. SIGNATURE: DELILAH Orellana PATIENT NAME: Ghanshyam Hook DATE: May 17, 2022 TIME: 4:28 PM PAGER/CONTACT #: [phone] [facility] Progress note 05-17-2022 Note Date & Type Note Facility 05-17-2022 Note HNO ID: [id number] Author: Mona Field MD Service: General Internal Medicine Author Type: Physician Type: Progress Notes Filed: 05/17/2022 2:40 PM Note Text: DEPARTMENT OF HOSPITAL MEDICINE PROGRESS NOTE SERVICE DATE: 05/17/2022 SERVICE TIME: 2:38 PM Hospital Medicine/Primary Attending: Mona Field MD NIGHT AND WEEKEND COVERAGE: [facility] COVERAGE: After 7pm, please call cross cover pager #[phone] Subjective INTERVAL HPI: appreciated psych input continue [...] disorder, schizophrenia, developmental delay who presented from [facility] with one week of confusion and agitation. He reports that his legs hurt and NMS was a concern, however neurology advised that this was not NMS. Psychiatry adjusted his Clozapine and Seroquel. A dose of Dantrolene was given at [place]. CT brain and abdomen/pelvis 05/12/22 reportedly showed [...] VTE Prophylaxis/Anticoagulants 05/13/22 1430 pneumatic compression stockings ([place], [place]) 05/13/22 0245 vte current anticoag therapy ([place] 05/13/22 0245 pneumatic compression stockings ([place]) 05/13/22 0245 activity - mobilize patient ([place] VTE Prophylaxis: VTE prophylaxis appropriate Disposition: Home Plan of care discussed with: Provider, RN, Patient SIGNATURE: Mona Field MD PATIENT NAME: Ghanshyam Hook DATE: May 17, 2022 TIME: 2:38 PM etx [id number] [facility] Clinical Note 05-16-2022 Note Date & Type Note Facility 05-16-2022 Note HNO ID: [id number] Author: DELILAH Orellana Service: Care Management Author Type: House Cleaner Type: Care Mgt Progress Note Filed: 05/16/2022 4:59 PM Note Text: CARE MANAGEMENT PROGRESS NOTE SERVICE DATE: 05/16/2022 SERVICE TIME: 4:57 PM LOS: 3 days SW/CM will continue to follow patient for discharge planning purposes. Patient lives at home with his brother and father. Family assists at home as needed. He has involvement with [facility]. SIGNATURE: DELILAH Orellana PATIENT NAME: Ghanshyam Hook DATE: May 16, 2022 TIME: 4:57 PM PAGER/CONTACT #: [phone] [facility] Progress note 05-16-2022 Note Date & Type Note Facility 05-16-2022 Note HNO ID: [id number] Author: Mona Field MD Service: General Internal Medicine Author Type: Physician Type: Progress Notes Filed: 05/16/2022 2:59 PM Note Text: DEPARTMENT OF HOSPITAL MEDICINE PROGRESS NOTE SERVICE DATE: 05/16/2022 SERVICE TIME: 2:54 PM Hospital Medicine/Primary Attending: Mona Field MD NIGHT AND WEEKEND COVERAGE: [place] COVERAGE: After 7pm, please call cross cover pager #[phone] Subjective INTERVAL HPI: patient in bed; updated [...] Abs Lymph 1.00 - 4.00 k/uL 1.92 [place]% % 8.3 Abs [place] <0.87 k/uL 0.43 [place]% % 2.3 Abs [...] disorder, schizophrenia, developmental delay who presented from [facility] with one week of confusion and agitation. He reports that his legs hurt and NMS was a concern, however neurology advised that this was not NMS. Psychiatry adjusted his Clozapine and Seroquel. A dose of Dantrolene was given at [place]. CT brain and abdomen/pelvis 05/12/22 reportedly showed [...] VTE Prophylaxis/Anticoagulants 05/13/22 1430 pneumatic compression stockings ([place]) 05/13/22 0245 vte current anticoag therapy ([place]) 05/13/22 0245 pneumatic compression stockings ([place]) 05/13/22 0245 activity - mobilize patient ([place]) VTE Prophylaxis: VTE prophylaxis appropriate Disposition: Home Plan of care discussed with: Provider, RN, Patient SIGNATURE: Mona Field MD PATIENT NAME: Ghanshyam Hook DATE: May 16, 2022 TIME: 2:54 PM etx [id number] [facility] Plan of care note 05-15-2022 Note Date & Type Note Facility 05-15-2022 Note HNO ID: [id number] Author: Viri Jang MD Service: Psychiatry Author Type: Resident Type: Plan of Care Filed: 05/15/2022 9:34 PM Note Text: Pt's outpatient psychiatrist, Dr. Jahaira Whitney, called back. I discussed the patient's clinical and behavioral status with her. According to Dr. Whitney, Ghanshyam has several siblings who take turns taking care of him. Ghanshyam is also established with [facility] for many years now, and has a dedicated environmental services supervisor there. Dr. Whitney's halfway plan for Ghanshyam is to gradually decrease [...] MD PGY-2 Resident Psychiatry and Behavioral Sciences [facility] Progress note 05-15-2022 Note Date & Type Note Facility 05-15-2022 Note HNO ID: [id number] Author: Benjamin Orozco DO Service: Hospital Medicine Author Type: Physician Type: Progress Notes Filed: 05/15/2022 2:09 PM Note Text: DEPARTMENT OF HOSPITAL MEDICINE PROGRESS NOTE SERVICE DATE: 05/15/2022 SERVICE TIME: 2:02 PM Hospital Medicine/Primary Attending: Benjamin Orozco DO NIGHT AND WEEKEND COVERAGE: After 7pm please page [phone] CHIEF COMPLAINT: no new complaints, tired SUBJECTIVE: [...] disorder, schizophrenia, developmental delay who presented from [facility] with one week of confusion and agitation. He reports that his legs hurt and NMS was a concern, however neurology advised that this was not NMS. Psychiatry adjusted his Clozapine and Seroquel. A dose of Dantrolene was given at [place]. CT brain and abdomen/pelvis 05/12/22 reportedly showed [...] if truly deem (more content not included)... [facility] Progress note 05-14-2022 Note Date & Type Note Facility 05-14-2022 Note HNO ID: [id number] Author: Benjamin Orozco DO Service: Hospital Medicine Author Type: Physician Type: Progress Notes Filed: 05/14/2022 4:43 PM Note Text: DEPARTMENT OF HOSPITAL MEDICINE PROGRESS NOTE SERVICE DATE: 05/14/2022 SERVICE TIME: 4:37 PM Hospital Medicine/Primary Attending: Benjamin Orozco DO NIGHT AND WEEKEND COVERAGE: After 7pm please page [phone] CHIEF COMPLAINT: R leg pain SUBJECTIVE: Pt [...] disorder, schizophrenia, developmental delay who presented from [facility] with one week of confusion and agitation. He reports that his legs hurt and NMS was a concern, however neurology advised that this was not NMS. Psychiatry adjusted his Clozapine and Seroquel. A dose of Dantrolene was given at [place]. CT brain and abdomen/pelvis 05/12/22 reportedly showed [...] can be increase (more content not included)... [facility] Progress note 05-13-2022 Note Date & Type Note Facility 05-13-2022 Note HNO ID: [id number] Author: Benjamin Orozco DO Service: Hospital Medicine Author Type: Physician Type: Progress Notes Filed: 05/13/2022 2:17 PM Note Text: DEPARTMENT OF HOSPITAL MEDICINE PROGRESS NOTE SERVICE DATE: 05/13/2022 SERVICE TIME: 8:02 AM Hospital Medicine/Primary Attending: Benjamin Orozco DO NIGHT AND WEEKEND COVERAGE: After 7pm please page [phone] CHIEF COMPLAINT: no complaints SUBJECTIVE: Pt seen [...] disorder, schizophrenia, developmental delay who presented from [facility] with one week of confusion and agitation. He reports that his legs hurt and NMS was a concern, however neurology advised that this was not NMS. Psychiatry adjusted his Clozapine and Seroquel. A dose of Dantrolene was given at [place]. CT brain and abdomen/pelvis 05/12/22 reportedly showed [...] Pneumatic Compression Device (more content not included)... [facility] Summary Purpose Family History No Family History [...] DATE CREATED AUTHOR AUTHOR'S ORGANIZ ATION 04/21/2022 [facility] DATE CREATED AUTHOR AUTHOR'S ORGANIZ ATION 05/27/2022 [facility] FOR RECORDS PERTAINING TO PATIENTS WHO [...] BE BASED ON THE PRIMARY CLINICAL RECORDS. [facility] [employer] [facility]. provides no warranty or guarantee of the accuracy or completeness of information in this document.
== END | disposition home or self-care (01) ==
LOC: LAB 11:04
PROVIDERS: PCP Family Medicine; Visit Provider Student in an Organized Health Care Education/Training Program
DX: Z51.81 Encounter for therapeutic drug level monitoring (principal); F31.9 Bipolar disorder, unspecified
CPT/HCPCS: 36415; 85025

== ENCOUNTER → 2023-03-19 | Outpatient (CLI) | payer MEDICAID, SELFPAY ==
--- OUTSIDE RECORDS SUMMARY | 2023-03-19 09:13 | XMS RPT_ITS | CCD ---
Author Name Unknown Address Count includes the [facility] [address] [place] [address] Organization [facility] Care Team Providers Care Deep Submergence Vehicle Crewmember Name Role Phone DILIA MORALES, SKYLAR BERNAL [...] Evaluation and management of inpatient GAURANG BARNES Facility:[facility] Start: 04-06-2022 End: 04-07-2022 ambulatory RACHNA HOOK [facility] Start: 03-30-2022 End: 03-30-2022 ambulatory SKYLAR DOBBS MD Facility:B Start: 03-22-2022 End: 03-23-2022 ambulatory SKYLAR DOBBS MD Facility:B Payers Date Payer Category Payer Medicaid [id number] 1980 Unknown [id number] 1980 Unknown [id number] 1980 Unknown [id number] Medicaid [id number] Clinical Note 05-18-2022 Note Date & Type Note Facility 05-18-2022 Note HNO ID: [id number] Author: DELILAH Orellana Service: Care Management Author Type: Shoe Stock Associate Type: Care Mgt Progress Note Filed: 05/18/2022 5:17 PM Note Text: CARE MANAGEMENT PROGRESS NOTE SERVICE DATE: 05/18/2022 SERVICE TIME: 5:12 PM LOS: 5 days SW spoke with patients brother at bedside at length to discuss concerns related to patients hospitalization and symptoms. Concerns relayed to physician. Discussed discharged planning with respects to patient going to [facility]. SW waiting on letter from psychiatry stating patient not a candidate for inpatient psychiatry. Once letter received, it is to be faxed, along with patient clinicals, to [facility] JACQUELINE Stinson at [phone]. Psychiatry to put on patients chart this evening. This letter will be used for patient placement into [facility] that [facility] will initiate. Psychiatry notified yesterday of need for letter and letter not received as of writing of this note. Patient not safe to return home due to behaviors. [facility] JACQUELINE Awan p [phone] f [phone] SIGNATURE: DELILAH Orellana PATIENT NAME: Ghanshyam Hook DATE: May 18, 2022 TIME: 5:12 PM PAGER/CONTACT #: [phone] [facility] Progress note 05-18-2022 Note Date & Type Note Facility 05-18-2022 Note HNO ID: [id number] Author: Mg Oviedo MD Service: Hospital Medicine Author Type: Physician Type: Progress Notes Filed: 05/18/2022 10:49 AM Note Text: DEPARTMENT OF HOSPITAL MEDICINE PROGRESS NOTE SERVICE DATE: 05/18/2022 SERVICE TIME: 6:45 AM Hospital Medicine/Primary Attending: Mg Oviedo MD NIGHT AND WEEKEND COVERAGE: [place] COVERAGE: After 7pm, please call cross cover pager #[phone] Subjective INTERVAL HPI: Patient seen and examined. [...] disorder, schizophrenia, developmental delay who presented from [facility] with one week of confusion and [...] VTE Prophylaxis/Anticoagulants 05/13/22 1430 pneumatic compression stockings ([place], [place]) 05/13/22 0245 vte current anticoag therapy ([place] 05/13/22 0245 pneumatic compression stockings ([place] 05/13/22 0245 activity - mobilize patient ([place] VTE Prophylaxis: VTE prophylaxis appropriate Plan of care discussed with: Provider, RN, Patient Disclaimer: Portions of this note may have been generated using [employer] voice recognition software. Reasonable efforts were made [...] Medicine Pager: Team Malick 05/18/22 6:45 AM [facility] Clinical Note 05-17-2022 Note Date & Type Note Facility 05-17-2022 Note HNO ID: [id number] Author: DELILAH Orellana Service: Care Management Author Type: Shoe Stock Associate Type: Care Mgt Progress Note Filed: 05/17/2022 4:32 PM Note Text: CARE MANAGEMENT PROGRESS NOTE SERVICE DATE: 05/17/2022 SERVICE TIME: 4:28 PM LOS: 4 days SW received call from [facility] Shantell Awan [phone]. She inquired about patient going to [facility] upon discharge. Patient will need a letter from psychiatrist stating that patient is not a candidate for inpatient psychiatric care. [facility] psychiatrist notified. SIGNATURE: DELILAH Orellana PATIENT NAME: Ghanshyam Hook DATE: May 17, 2022 TIME: 4:28 PM PAGER/CONTACT #: [phone] [facility] Progress note 05-17-2022 Note Date & Type Note Facility 05-17-2022 Note HNO ID: [id number] Author: Mona Field MD Service: General Internal Medicine Author Type: Physician Type: Progress Notes Filed: 05/17/2022 2:40 PM Note Text: DEPARTMENT OF HOSPITAL MEDICINE PROGRESS NOTE SERVICE DATE: 05/17/2022 SERVICE TIME: 2:38 PM Hospital Medicine/Primary Attending: Mona Field MD NIGHT AND WEEKEND COVERAGE: [facility] COVERAGE: After 7pm, please call cross cover pager #[phone] Subjective INTERVAL HPI: appreciated psych input continue [...] disorder, schizophrenia, developmental delay who presented from [facility] with one week of confusion and agitation. He reports that his legs hurt and NMS was a concern, however neurology advised that this was not NMS. Psychiatry adjusted his Clozapine and Seroquel. A dose of Dantrolene was given at [place]. CT brain and abdomen/pelvis 05/12/22 reportedly showed [...] VTE Prophylaxis/Anticoagulants 05/13/22 1430 pneumatic compression stockings ([place], [place]) 05/13/22 0245 vte current anticoag therapy ([place] 05/13/22 0245 pneumatic compression stockings ([place] 05/13/22 0245 activity - mobilize patient ([place] VTE Prophylaxis: VTE prophylaxis appropriate Disposition: Home Plan of care discussed with: Provider, RN, Patient SIGNATURE: Mona Field MD PATIENT NAME: Ghanshyam Hook DATE: May 17, 2022 TIME: 2:38 PM etx [id number] [facility] Clinical Note 05-16-2022 Note Date & Type Note Facility 05-16-2022 Note HNO ID: [id number] Author: DELILAH Orellana Service: Care Management Author Type: Shoe Stock Associate Type: Care Mgt Progress Note Filed: 05/16/2022 4:59 PM Note Text: CARE MANAGEMENT PROGRESS NOTE SERVICE DATE: 05/16/2022 SERVICE TIME: 4:57 PM LOS: 3 days SW/CM will continue to follow patient for discharge planning purposes. Patient lives at home with his brother and father. Family assists at home as needed. He has involvement with [facility]. SIGNATURE: DELILAH Orellana PATIENT NAME: Ghanshyam Hook DATE: May 16, 2022 TIME: 4:57 PM PAGER/CONTACT #: [phone] [facility] Progress note 05-16-2022 Note Date & Type Note Facility 05-16-2022 Note HNO ID: [id number] Author: Mona Field MD Service: General Internal Medicine Author Type: Physician Type: Progress Notes Filed: 05/16/2022 2:59 PM Note Text: DEPARTMENT OF HOSPITAL MEDICINE PROGRESS NOTE SERVICE DATE: 05/16/2022 SERVICE TIME: 2:54 PM Hospital Medicine/Primary Attending: Mona Field MD NIGHT AND WEEKEND COVERAGE: [place] COVERAGE: After 7pm, please call cross cover pager #[phone] Subjective INTERVAL HPI: patient in bed; updated [...] Abs Lymph 1.00 - 4.00 k/uL 1.92 Clarke% % 8.3 Abs Clarke <0.87 k/uL 0.43 Eosin% % 2.3 Abs [...] disorder, schizophrenia, developmental delay who presented from [facility] with one week of confusion and agitation. He reports that his legs hurt and NMS was a concern, however neurology advised that this was not NMS. Psychiatry adjusted his Clozapine and Seroquel. A dose of Dantrolene was given at [place]. CT brain and abdomen/pelvis 05/12/22 reportedly showed [...] VTE Prophylaxis/Anticoagulants 05/13/22 1430 pneumatic compression stockings ([place]) 05/13/22 0245 vte current anticoag therapy ([place]) 05/13/22 0245 pneumatic compression stockings ([place]) 05/13/22 0245 activity - mobilize patient ([place]) VTE Prophylaxis: VTE prophylaxis appropriate Disposition: Home Plan of care discussed with: Provider, RN, Patient SIGNATURE: Mona Field MD PATIENT NAME: Ghanshyam Hook DATE: May 16, 2022 TIME: 2:54 PM etx [id number] [facility] Plan of care note 05-15-2022 Note Date & Type Note Facility 05-15-2022 Note HNO ID: [id number] Author: Viri Jang MD Service: Psychiatry Author Type: Resident Type: Plan of Care Filed: 05/15/2022 9:34 PM Note Text: Pt's outpatient psychiatrist, Dr. Jahaira Whitney, called back. I discussed the patient's clinical and behavioral status with her. According to Dr. Whitney, Ghanshyam has several siblings who take turns taking care of him. Ghanshyam is also established with [facility] for many years now, and has a dedicated mains and service supervisor there. Dr. Whitney's snf plan for Ghanshyam is to gradually decrease [...] MD PGY-2 Resident Psychiatry and Behavioral Sciences [facility] Progress note 05-15-2022 Note Date & Type Note Facility 05-15-2022 Note HNO ID: [id number] Author: Benjamin Orozco DO Service: Hospital Medicine Author Type: Physician Type: Progress Notes Filed: 05/15/2022 2:09 PM Note Text: DEPARTMENT OF HOSPITAL MEDICINE PROGRESS NOTE SERVICE DATE: 05/15/2022 SERVICE TIME: 2:02 PM Hospital Medicine/Primary Attending: Benjamin Orozco DO NIGHT AND WEEKEND COVERAGE: After 7pm please page [phone] CHIEF COMPLAINT: no new complaints, tired SUBJECTIVE: [...] disorder, schizophrenia, developmental delay who presented from [facility] with one week of confusion and agitation. He reports that his legs hurt and NMS was a concern, however neurology advised that this was not NMS. Psychiatry adjusted his Clozapine and Seroquel. A dose of Dantrolene was given at [place]. CT brain and abdomen/pelvis 05/12/22 reportedly showed [...] if truly deem (more content not included)... [facility] Progress note 05-14-2022 Note Date & Type Note Facility 05-14-2022 Note HNO ID: [id number] Author: Benjamin Orozco DO Service: Hospital Medicine Author Type: Physician Type: Progress Notes Filed: 05/14/2022 4:43 PM Note Text: DEPARTMENT OF HOSPITAL MEDICINE PROGRESS NOTE SERVICE DATE: 05/14/2022 SERVICE TIME: 4:37 PM Hospital Medicine/Primary Attending: Benjamin Orozco DO NIGHT AND WEEKEND COVERAGE: After 7pm please page [phone] CHIEF COMPLAINT: R leg pain SUBJECTIVE: Pt [...] disorder, schizophrenia, developmental delay who presented from [facility] with one week of confusion and agitation. He reports that his legs hurt and NMS was a concern, however neurology advised that this was not NMS. Psychiatry adjusted his Clozapine and Seroquel. A dose of Dantrolene was given at [place]. CT brain and abdomen/pelvis 05/12/22 reportedly showed [...] can be increase (more content not included)... [facility] Progress note 05-13-2022 Note Date & Type Note Facility 05-13-2022 Note HNO ID: [id number] Author: Benjamin Orozco DO Service: Hospital Medicine Author Type: Physician Type: Progress Notes Filed: 05/13/2022 2:17 PM Note Text: DEPARTMENT OF HOSPITAL MEDICINE PROGRESS NOTE SERVICE DATE: 05/13/2022 SERVICE TIME: 8:02 AM Hospital Medicine/Primary Attending: Benjamin Orozco DO NIGHT AND WEEKEND COVERAGE: After 7pm please page [phone] CHIEF COMPLAINT: no complaints SUBJECTIVE: Pt seen [...] disorder, schizophrenia, developmental delay who presented from [facility] with one week of confusion and agitation. He reports that his legs hurt and NMS was a concern, however neurology advised that this was not NMS. Psychiatry adjusted his Clozapine and Seroquel. A dose of Dantrolene was given at [place]. CT brain and abdomen/pelvis 05/12/22 reportedly showed [...] 125mg BID -I discussed case with Dr Apipah, and they will look into if his cloazpine can be increased, and if he's ever had low ANC. They ideally would like to increase his clozapine. VTE Prophylaxis: Pneumatic Compression Device (more content not included)... [facility] Summary Purpose Family History No Family [...] DATE CREATED AUTHOR AUTHOR'S ORGANIZ ATION 04/21/2022 [facility] DATE CREATED AUTHOR AUTHOR'S ORGANIZ ATION 05/27/2022 [facility] FOR RECORDS PERTAINING TO PATIENTS WHO [...] BE BASED ON THE PRIMARY CLINICAL RECORDS. [facility]. provides no warranty or guarantee of the accuracy or completeness of information in this document.
[2023-03-19 10:51] LABS: Absolute Lymphocyte Count 1.95 X10^3/uL (0.83-4.51); Absolute Neutrophil Count 3.8 X10^3/uL (2.0-7.7); Basophil# 0.03 X10^3/uL; Basophil% 0.5 % (0-1); Eosinophil# 0.29 X10^3/uL; Eosinophils% 4.4 % (0-5); Hematocrit 42.5 % (40-54); Hemoglobin 13.5 g/dL (13.0-16.5); Lymphocyte # 1.95 X10^3/ul (0.83-4.51); Lymphocyte % 29.7 % (19-41); Mean Corp Hgb Conc 31.8 g/dL (32-36); Mean Corpuscular Hgb 29.5 pg (27.0-32.0); Mean Corpuscular Volume 92.8 fL (80-94); Mean Platelet Vol. 10.6 fl (6.2-12.0); Monocyte# 0.48 X10^3/uL; Monocyte% 7.3 % (0-10); NRBC Flagged by Analyzer 0 % (0-5); Neutrophil # 3.78 X10^3/uL (2.7-7.7); Neutrophil % 57.6 % (47-70); Platelet Count 184 K/mm3 (150-450); RBC Distribution Width CV 14.6 % (11.6-14.6); RBC Distribution Width SD 50.4 fl (35.1-43.9); Red Blood Count 4.58 M/mm3 (4.6-6.2); White Blood Count 6.6 K/mm3 (4.4-11.0)
== END | disposition home or self-care (01) ==
LOC: LAB 08:52
PROVIDERS: PCP Family Medicine; Visit Provider Student in an Organized Health Care Education/Training Program
DX: Z51.81 Encounter for therapeutic drug level monitoring (principal); F31.9 Bipolar disorder, unspecified
CPT/HCPCS: 36415; 85025

== ENCOUNTER → 2023-04-02 | Outpatient (CLI) | payer MEDICAID, SELFPAY ==
--- OUTSIDE RECORDS SUMMARY | 2023-04-02 09:54 | XMS RPT_ITS | CCD ---
Author Name Unknown Address [facility] [address] [place] [address] Organization [facility] Care Team Providers Care Property Field Inspector Name Role Phone DILIA MORALES, SKYLAR BERNAL [...] Evaluation and management of inpatient GAURANG BARNES Facility:[facility] Start: 04-06-2022 End: 04-07-2022 ambulatory RACHNA HOOK [facility] Start: 03-30-2022 End: 03-30-2022 ambulatory SKYLAR DOBBS MD Facility:B Start: 03-22-2022 End: 03-23-2022 ambulatory SKYLAR DOBBS MD Facility:B Payers Date Payer Category Payer Medicaid [id number] 1980 Unknown [id number] 1980 Unknown [id number] 1980 Unknown [id number] Medicaid [id number] Clinical Note 05-18-2022 Note Date & Type Note Facility 05-18-2022 Note HNO ID: [id number] Author: DELILAH Orellana Service: Care Management Author Type: Food Service Substitute Type: Care Mgt Progress Note Filed: 05/18/2022 5:17 PM Note Text: CARE MANAGEMENT PROGRESS NOTE SERVICE DATE: 05/18/2022 SERVICE TIME: 5:12 PM LOS: 5 days SW spoke with patients brother at bedside at length to discuss concerns related to patients hospitalization and symptoms. Concerns relayed to physician. Discussed discharged planning with respects to patient going to [facility]. SW waiting on letter from psychiatry stating patient not a candidate for inpatient psychiatry. Once letter received, it is to be faxed, along with patient clinicals, to [facility] JACQUELINE Stinson at [phone]. Psychiatry to put on patients chart this evening. This letter will be used for patient placement into [facility] that [facility] will initiate. Psychiatry notified yesterday of need for letter and letter not received as of writing of this note. Patient not safe to return home due to behaviors. [facility] JACQUELINE Awan p [phone] f [phone] SIGNATURE: DELILAH Orellana PATIENT NAME: Ghanshyam Hook DATE: May 18, 2022 TIME: 5:12 PM PAGER/CONTACT #: [phone] [facility] Progress note 05-18-2022 Note Date & Type Note Facility 05-18-2022 Note HNO ID: [id number] Author: Mg Oviedo MD Service: Hospital Medicine Author Type: Physician Type: Progress Notes Filed: 05/18/2022 10:49 AM Note Text: DEPARTMENT OF HOSPITAL MEDICINE PROGRESS NOTE SERVICE DATE: 05/18/2022 SERVICE TIME: 6:45 AM Hospital Medicine/Primary Attending: Mg Oviedo MD NIGHT AND WEEKEND COVERAGE: [employer] COVERAGE: After 7pm, please call cross cover pager #[phone] Subjective INTERVAL HPI: Patient seen and examined. [...] disorder, schizophrenia, developmental delay who presented from [facility] with one week of confusion and agitation. He reports that his legs hurt and NMS was a concern, however neurology advised that this was not NMS. Psychiatry adjusted his Clozapine and Seroquel. A dose of Dantrolene was given at [place]. CT brain and abdomen/pelvis 05/12/22 reportedly showed [...] VTE Prophylaxis/Anticoagulants 05/13/22 1430 pneumatic compression [place]ings ([place] 05/13/22 0245 vte [place] 05/13/22 0245 pneumatic compression [place] 05/13/22 0245 activity - [place] VTE Prophylaxis: VTE prophylaxis appropriate Plan of care discussed with: Provider, RN, Patient Disclaimer: Portions of this note may have been generated using [employer] voice recognition software. Reasonable efforts were made [...] Medicine Pager: Team Malick 05/18/22 6:45 AM [facility] Clinical Note 05-17-2022 Note Date & Type Note Facility 05-17-2022 Note HNO ID: [id number] Author: DELILAH Orellana Service: Care Management Author Type: Food Service Substitute Type: Care Mgt Progress Note Filed: 05/17/2022 4:32 PM Note Text: CARE MANAGEMENT PROGRESS NOTE SERVICE DATE: 05/17/2022 SERVICE TIME: 4:28 PM LOS: 4 days SW received call from [facility] Board [facility] Shantell Awan [phone]. She inquired about patient going to [facility] upon discharge. Patient will need a letter from psychiatrist stating that patient is not a candidate for inpatient psychiatric care. [facility] psychiatrist notified. SIGNATURE: DELILAH Orellana PATIENT NAME: Ghanshyam Hook DATE: May 17, 2022 TIME: 4:28 PM PAGER/CONTACT #: [phone] [facility] Progress note 05-17-2022 Note Date & Type Note Facility 05-17-2022 Note HNO ID: [id number] Author: Mona Field MD Service: General Internal Medicine Author Type: Physician Type: Progress Notes Filed: 05/17/2022 2:40 PM Note Text: DEPARTMENT OF HOSPITAL MEDICINE PROGRESS NOTE SERVICE DATE: 05/17/2022 SERVICE TIME: 2:38 PM Hospital Medicine/Primary Attending: Mona Field MD NIGHT AND WEEKEND COVERAGE: [facility] COVERAGE: After 7pm, please call cross cover pager #[phone] Subjective INTERVAL HPI: appreciated psych input continue [...] disorder, schizophrenia, developmental delay who presented from [facility] with one week of confusion and agitation. He reports that his legs hurt and NMS was a concern, however neurology advised that this was not NMS. Psychiatry adjusted his Clozapine and Seroquel. A dose of Dantrolene was given at [place]. CT brain and abdomen/pelvis 05/12/22 reportedly showed [...] VTE Prophylaxis/Anticoagulants 05/13/22 1430 pneumatic compression stockings [place] 05/13/22 0245 vte [place] 05/13/22 0245 pneumatic compression [place]ings [place] 05/13/22 0245 activity - [place] V[place] Prophylaxis: VTE prophylaxis appropriate Disposition: Home Plan of care discussed with: Provider, RN, Patient SIGNATURE: Mona Field MD PATIENT NAME: Ghanshyam Hook DATE: May 17, 2022 TIME: 2:38 PM etx [id number] [facility] Clinical Note 05-16-2022 Note Date & Type Note Facility 05-16-2022 Note HNO ID: [id number] Author: DELILAH Orellana Service: Care Management Author Type: Food Service Substitute Type: Care Mgt Progress Note Filed: 05/16/2022 4:59 PM Note Text: CARE MANAGEMENT PROGRESS NOTE SERVICE DATE: 05/16/2022 SERVICE TIME: 4:57 PM LOS: 3 days SW/CM will continue to follow patient for discharge planning purposes. Patient lives at home with his brother and father. Family assists at home as needed. He has involvement with [facility]. SIGNATURE: DELILAH Orellana PATIENT NAME: Ghanshyam Hook DATE: May 16, 2022 TIME: 4:57 PM PAGER/CONTACT #: [phone] [facility] Progress note 05-16-2022 Note Date & Type Note Facility 05-16-2022 Note HNO ID: [id number] Author: Mona Field MD Service: General Internal Medicine Author Type: Physician Type: Progress Notes Filed: 05/16/2022 2:59 PM Note Text: DEPARTMENT OF HOSPITAL MEDICINE PROGRESS NOTE SERVICE DATE: 05/16/2022 SERVICE TIME: 2:54 PM Hospital Medicine/Primary Attending: Mona Field MD NIGHT AND WEEKEND COVERAGE: [employer] COVERAGE: After 7pm, please call cross cover pager #[phone] Subjective INTERVAL HPI: patient in bed; updated [...] Abs Lymph 1.00 - 4.00 k/uL 1.92 [place]% % 8.3 Abs [place] <0.87 k/uL 0.43 Eosin% % 2.3 Abs [...] disorder, schizophrenia, developmental delay who presented from [facility] with one week of confusion and agitation. He reports that his legs hurt and NMS was a concern, however neurology advised that this was not NMS. Psychiatry adjusted his Clozapine and Seroquel. A dose of Dantrolene was given at [place]. CT brain and abdomen/pelvis 05/12/22 reportedly showed [...] VTE Prophylaxis/Anticoagulants 05/13/22 1430 pneumatic compression stockings [place] 05/13/22 0245 vte current anticoag therapy [place] 05/13/22 0245 pneumatic compression stockings [place] 05/13/22 0245 activity - [place]ize [place] VTE Prophylaxis: VTE prophylaxis appropriate Disposition: Home Plan of care discussed with: Provider, RN, Patient SIGNATURE: Mona Field MD PATIENT NAME: Ghanshyam Hook DATE: May 16, 2022 TIME: 2:54 PM etx [id number] [facility] Plan of care note 05-15-2022 Note Date & Type Note Facility 05-15-2022 Note HNO ID: [id number] Author: Viri Jang MD Service: Psychiatry Author Type: Resident Type: Plan of Care Filed: 05/15/2022 9:34 PM Note Text: Pt's outpatient psychiatrist, Dr. Jahaira Whitney, called back. I discussed the patient's clinical and behavioral status with her. According to Dr. Whitney, Ghanshyam has several siblings who take turns taking care of him. Ghanshyam is also established with [facility] for many years now, and has a dedicated patient services manager there. Dr. Whitney's shelter plan for Ghanshyam is to gradually decrease [...] MD PGY-2 Resident Psychiatry and Behavioral Sciences [facility] Progress note 05-15-2022 Note Date & Type Note Facility 05-15-2022 Note HNO ID: [id number] Author: Benjamin Orozco DO Service: Hospital Medicine Author Type: Physician Type: Progress Notes Filed: 05/15/2022 2:09 PM Note Text: DEPARTMENT OF HOSPITAL MEDICINE PROGRESS NOTE SERVICE DATE: 05/15/2022 SERVICE TIME: 2:02 PM Hospital Medicine/Primary Attending: Benjamin Orozco DO NIGHT AND WEEKEND COVERAGE: After 7pm please page [phone] CHIEF COMPLAINT: no new complaints, tired SUBJECTIVE: [...] disorder, schizophrenia, developmental delay who presented from [facility] with one week of confusion and agitation. He reports that his legs hurt and NMS was a concern, however neurology advised that this was not NMS. Psychiatry adjusted his Clozapine and Seroquel. A dose of Dantrolene was given at [place]. CT brain and abdomen/pelvis 05/12/22 reportedly showed [...] if truly deem (more content not included)... [facility] Progress note 05-14-2022 Note Date & Type Note Facility 05-14-2022 Note HNO ID: [id number] Author: Benjamin Orozco DO Service: Hospital Medicine Author Type: Physician Type: Progress Notes Filed: 05/14/2022 4:43 PM Note Text: DEPARTMENT OF HOSPITAL MEDICINE PROGRESS NOTE SERVICE DATE: 05/14/2022 SERVICE TIME: 4:37 PM Hospital Medicine/Primary Attending: Benjamin Orozco DO NIGHT AND WEEKEND COVERAGE: After 7pm please page [phone] CHIEF COMPLAINT: R leg pain SUBJECTIVE: Pt [...] disorder, schizophrenia, developmental delay who presented from [facility] with one week of confusion and agitation. He reports that his legs hurt and NMS was a concern, however neurology advised that this was not NMS. Psychiatry adjusted his Clozapine and Seroquel. A dose of Dantrolene was given at [place]. CT brain and abdomen/pelvis 05/12/22 reportedly showed [...] can be increase (more content not included)... [facility] Progress note 05-13-2022 Note Date & Type Note Facility 05-13-2022 Note HNO ID: [id number] Author: Benjamin Orozco DO Service: Hospital Medicine Author Type: Physician Type: Progress Notes Filed: 05/13/2022 2:17 PM Note Text: DEPARTMENT OF HOSPITAL MEDICINE PROGRESS NOTE SERVICE DATE: 05/13/2022 SERVICE TIME: 8:02 AM Hospital Medicine/Primary Attending: Benjamin Orozco DO NIGHT AND WEEKEND COVERAGE: After 7pm please page [phone] CHIEF COMPLAINT: no complaints SUBJECTIVE: Pt seen [...] disorder, schizophrenia, developmental delay who presented from [facility] with one week of confusion and agitation. He reports that his legs hurt and NMS was a concern, however neurology advised that this was not NMS. Psychiatry adjusted his Clozapine and Seroquel. A dose of Dantrolene was given at [place]. CT brain and abdomen/pelvis 05/12/22 reportedly showed [...] Pneumatic Compression Device (more content not included)... [facility] Summary Purpose Family History No Family [...] DATE CREATED AUTHOR AUTHOR'S ORGANIZ ATION 04/21/2022 [facility] DATE CREATED AUTHOR AUTHOR'S ORGANIZ ATION 05/27/2022 [facility] FOR RECORDS PERTAINING TO PATIENTS WHO [...] BE BASED ON THE PRIMARY CLINICAL RECORDS. [facility] [employer] [facility]. provides no warranty or guarantee of the accuracy or completeness of information in this document.
[2023-04-02 11:00] LABS: Absolute Lymphocyte Count 1.93 X10^3/uL (0.83-4.51); Absolute Neutrophil Count 3.6 X10^3/uL (2.0-7.7); Basophil# 0.04 X10^3/uL; Basophil% 0.6 % (0-1); Eosinophils% 3.2 % (0-5); Hematocrit 39.1 % (40-54); Hemoglobin 12.8 g/dL (13.0-16.5); Lymphocyte # 1.93 X10^3/ul (0.83-4.51); Lymphocyte % 30.6 % (19-41); Mean Corp Hgb Conc 32.7 g/dL (32-36); Mean Corpuscular Hgb 30.2 pg (27.0-32.0); Mean Corpuscular Volume 92.2 fL (80-94); Mean Platelet Vol. 10.6 fl (6.2-12.0); Monocyte# 0.49 X10^3/uL; Monocyte% 7.8 % (0-10); NRBC Flagged by Analyzer 0 % (0-5); Neutrophil # 3.63 X10^3/uL (2.7-7.7); Neutrophil % 57.5 % (47-70); Platelet Count 157 K/mm3 (150-450); RBC Distribution Width CV 14.5 % (11.6-14.6); RBC Distribution Width SD 49.1 fl (35.1-43.9); Red Blood Count 4.24 M/mm3 (4.6-6.2); White Blood Count 6.3 K/mm3 (4.4-11.0)
== END | disposition home or self-care (01) ==
LOC: LAB 09:14
PROVIDERS: PCP Family Medicine; Visit Provider Student in an Organized Health Care Education/Training Program
DX: Z51.81 Encounter for therapeutic drug level monitoring (principal); F31.9 Bipolar disorder, unspecified; Z79.899 Other long term (current) drug therapy
CPT/HCPCS: 36415; 85025

== ENCOUNTER → 2023-04-16 | Outpatient (CLI) | payer MEDICAID, SELFPAY ==
[2023-04-16 10:47] LABS: Absolute Lymphocyte Count 2.18 X10^3/uL (0.83-4.51); Absolute Neutrophil Count 2.8 X10^3/uL (2.0-7.7); Basophil# 0.02 X10^3/uL; Basophil% 0.3 % (0-1); Eosinophil# 0.18 X10^3/uL; Eosinophils% 3.1 % (0-5); Hematocrit 39.9 % (40-54); Lymphocyte # 2.18 X10^3/ul (0.83-4.51); Lymphocyte % 37.5 % (19-41); Mean Corp Hgb Conc 32.6 g/dL (32-36); Mean Corpuscular Hgb 29.5 pg (27.0-32.0); Mean Corpuscular Volume 90.5 fL (80-94); Mean Platelet Vol. 11.4 fl (6.2-12.0); Monocyte% 10.3 % (0-10); NRBC Flagged by Analyzer 0 % (0-5); Neutrophil # 2.81 X10^3/uL (2.7-7.7); Neutrophil % 48.5 % (47-70); POSITIVE COUNT YES; Platelet Count 105 K/mm3 (150-450); RBC Distribution Width CV 14.4 % (11.6-14.6); RBC Distribution Width SD 48.1 fl (35.1-43.9); Red Blood Count 4.41 M/mm3 (4.6-6.2); White Blood Count 5.8 K/mm3 (4.4-11.0)
== END | disposition home or self-care (01) ==
LOC: LAB 10:40
PROVIDERS: PCP Family Medicine; Visit Provider Student in an Organized Health Care Education/Training Program
DX: Z51.81 Encounter for therapeutic drug level monitoring (principal); F31.9 Bipolar disorder, unspecified; Z79.899 Other long term (current) drug therapy
CPT/HCPCS: 36415; 85025

== ENCOUNTER → 2023-04-30 | Outpatient (CLI) | payer MEDICAID, SELFPAY ==
[2023-04-30 10:25] LABS: Absolute Lymphocyte Count 2.57 X10^3/uL (0.83-4.51); Absolute Neutrophil Count 2.9 X10^3/uL (2.0-7.7); Basophil# 0.03 X10^3/uL; Basophil% 0.5 % (0-1); Eosinophil# 0.14 X10^3/uL; Eosinophils% 2.2 % (0-5); Hematocrit 40.1 % (40-54); Hemoglobin 12.7 g/dL (13.0-16.5); Lymphocyte # 2.57 X10^3/ul (0.83-4.51); Lymphocyte % 40.9 % (19-41); Mean Corp Hgb Conc 31.7 g/dL (32-36); Mean Corpuscular Hgb 29.1 pg (27.0-32.0); Mean Corpuscular Volume 91.8 fL (80-94); Mean Platelet Vol. 10.2 fl (6.2-12.0); Monocyte# 0.64 X10^3/uL; Monocyte% 10.2 % (0-10); NRBC Flagged by Analyzer 0 % (0-5); Platelet Count 176 K/mm3 (150-450); RBC Distribution Width CV 14.1 % (11.6-14.6); RBC Distribution Width SD 47.8 fl (35.1-43.9); Red Blood Count 4.37 M/mm3 (4.6-6.2); White Blood Count 6.3 K/mm3 (4.4-11.0)
== END | disposition home or self-care (01) ==
LOC: LAB 08:17
PROVIDERS: PCP Family Medicine; Visit Provider Student in an Organized Health Care Education/Training Program
DX: Z51.81 Encounter for therapeutic drug level monitoring (principal); F31.9 Bipolar disorder, unspecified; Z79.899 Other long term (current) drug therapy
CPT/HCPCS: 36415; 85025

== ENCOUNTER → 2023-05-14 | Outpatient (CLI) | payer MEDICAID, SELFPAY ==
[2023-05-14 11:23] LABS: Absolute Lymphocyte Count 1.43 X10^3/uL (0.83-4.51); Absolute Neutrophil Count 3.2 X10^3/uL (2.0-7.7); Basophil# 0.03 X10^3/uL; Basophil% 0.5 % (0-1); Eosinophil# 0.15 X10^3/uL; Eosinophils% 2.7 % (0-5); Hematocrit 41.2 % (40-54); Hemoglobin 13.1 g/dL (13.0-16.5); Lymphocyte # 1.43 X10^3/ul (0.83-4.51); Mean Corp Hgb Conc 31.8 g/dL (32-36); Mean Corpuscular Hgb 28.7 pg (27.0-32.0); Mean Corpuscular Volume 90.4 fL (80-94); Mean Platelet Vol. 10.2 fl (6.2-12.0); Monocyte# 0.66 X10^3/uL; NRBC Flagged by Analyzer 0 % (0-5); Neutrophil # 3.19 X10^3/uL (2.7-7.7); Neutrophil % 58.3 % (47-70); Platelet Count 172 K/mm3 (150-450); RBC Distribution Width CV 14.4 % (11.6-14.6); RBC Distribution Width SD 47.7 fl (35.1-43.9); Red Blood Count 4.56 M/mm3 (4.6-6.2); White Blood Count 5.5 K/mm3 (4.4-11.0)
== END | disposition home or self-care (01) ==
PROVIDERS: PCP Family Medicine; Visit Provider Student in an Organized Health Care Education/Training Program
DX: F31.9 Bipolar disorder, unspecified (principal); F79 Unspecified intellectual disabilities; Z51.81 Encounter for therapeutic drug level monitoring
CPT/HCPCS: 36415; 85025

== ENCOUNTER 2023-05-28 08:51 | Outpatient (CLI) | payer MEDICAID, SELFPAY ==
[2023-05-28 10:57] LABS: Absolute Lymphocyte Count 1.04 X10^3/uL (0.83-4.51); Basophil# 0.02 X10^3/uL; Basophil% 0.3 % (0-1); Eosinophils% 1.7 % (0-5); Hematocrit 39.2 % (40-54); Hemoglobin 12.6 g/dL (13.0-16.5); Lymphocyte # 1.04 X10^3/ul (0.83-4.51); Lymphocyte % 17.5 % (19-41); Mean Corp Hgb Conc 32.1 g/dL (32-36); Mean Corpuscular Volume 90.3 fL (80-94); Mean Platelet Vol. 9.4 fl (6.2-12.0); Monocyte# 0.79 X10^3/uL; Monocyte% 13.3 % (0-10); NRBC Flagged by Analyzer 0 % (0-5); Neutrophil # 3.96 X10^3/uL (2.7-7.7); Neutrophil % 66.9 % (47-70); Platelet Count 149 K/mm3 (150-450); RBC Distribution Width CV 14.7 % (11.6-14.6); RBC Distribution Width SD 49.1 fl (35.1-43.9); Red Blood Count 4.34 M/mm3 (4.6-6.2); White Blood Count 5.9 K/mm3 (4.4-11.0)
== END 2023-05-28 23:59 | disposition home or self-care (01) ==
LOC: LAB 08:52
PROVIDERS: PCP Family Medicine; Visit Provider Student in an Organized Health Care Education/Training Program
DX: F31.9 Bipolar disorder, unspecified (principal); Z51.81 Encounter for therapeutic drug level monitoring
CPT/HCPCS: 36415; 85025

== ENCOUNTER → 2023-06-11 | Outpatient (CLI) | payer MEDICAID, SELFPAY ==
[2023-06-11 10:55] LABS: Absolute Lymphocyte Count 1.98 X10^3/uL (0.83-4.51); Absolute Neutrophil Count 3.5 X10^3/uL (2.0-7.7); Basophil# 0.03 X10^3/uL; Basophil% 0.5 % (0-1); Eosinophil# 0.13 X10^3/uL; Eosinophils% 2.1 % (0-5); Hematocrit 40.7 % (40-54); Hemoglobin 13.1 g/dL (13.0-16.5); Lymphocyte # 1.98 X10^3/ul (0.83-4.51); Lymphocyte % 31.7 % (19-41); Mean Corp Hgb Conc 32.2 g/dL (32-36); Mean Corpuscular Hgb 28.6 pg (27.0-32.0); Mean Corpuscular Volume 88.9 fL (80-94); Mean Platelet Vol. 9.8 fl (6.2-12.0); Monocyte# 0.56 X10^3/uL; NRBC Flagged by Analyzer 0 % (0-5); Neutrophil # 3.51 X10^3/uL (2.7-7.7); Neutrophil % 56.1 % (47-70); Platelet Count 176 K/mm3 (150-450); RBC Distribution Width CV 14.4 % (11.6-14.6); RBC Distribution Width SD 46.5 fl (35.1-43.9); Red Blood Count 4.58 M/mm3 (4.6-6.2); White Blood Count 6.3 K/mm3 (4.4-11.0)
== END | disposition home or self-care (01) ==
LOC: LAB 08:49
PROVIDERS: PCP Family Medicine; Visit Provider Student in an Organized Health Care Education/Training Program
DX: Z51.81 Encounter for therapeutic drug level monitoring (principal); F31.9 Bipolar disorder, unspecified
CPT/HCPCS: 36415; 85025

== ENCOUNTER → 2023-06-25 | Outpatient (CLI) | payer MEDICAID, SELFPAY ==
[2023-06-25 10:37] LABS: Absolute Lymphocyte Count 3.37 X10^3/uL (0.83-4.51); Absolute Neutrophil Count 2.9 X10^3/uL (2.0-7.7); Basophil# 0.04 X10^3/uL; Basophil% 0.6 % (0-1); Eosinophil# 0.23 X10^3/uL; Eosinophils% 3.2 % (0-5); Hematocrit 43.1 % (40-54); Hemoglobin 13.7 g/dL (13.0-16.5); Lymphocyte # 3.37 X10^3/ul (0.83-4.51); Lymphocyte % 47.6 % (19-41); Mean Corp Hgb Conc 31.8 g/dL (32-36); Mean Corpuscular Hgb 28.5 pg (27.0-32.0); Mean Corpuscular Volume 89.8 fL (80-94); Mean Platelet Vol. 10.6 fl (6.2-12.0); Monocyte# 0.58 X10^3/uL; Monocyte% 8.2 % (0-10); NRBC Flagged by Analyzer 0 % (0-5); Neutrophil # 2.85 X10^3/uL (2.7-7.7); Neutrophil % 40.3 % (47-70); Platelet Count 184 K/mm3 (150-450); RBC Distribution Width CV 14.7 % (11.6-14.6); RBC Distribution Width SD 48.1 fl (35.1-43.9); White Blood Count 7.1 K/mm3 (4.4-11.0)
== END | disposition home or self-care (01) ==
PROVIDERS: PCP Family Medicine; Visit Provider Student in an Organized Health Care Education/Training Program
DX: Z51.81 Encounter for therapeutic drug level monitoring (principal); F31.9 Bipolar disorder, unspecified
CPT/HCPCS: 36415; 85025

== ENCOUNTER → 2023-07-23 | Outpatient (CLI) | payer MEDICAID, SELFPAY ==
[2023-07-23 13:33] LABS: Absolute Lymphocyte Count 1.97 X10^3/uL (0.83-4.51); Absolute Neutrophil Count 3.2 X10^3/uL (2.0-7.7); Basophil# 0.03 X10^3/uL; Basophil% 0.5 % (0-1); Eosinophils% 3.2 % (0-5); Hematocrit 41.6 % (40-54); Hemoglobin 13.1 g/dL (13.0-16.5); Lymphocyte # 1.97 X10^3/ul (0.83-4.51); Lymphocyte % 31.7 % (19-41); Mean Corp Hgb Conc 31.5 g/dL (32-36); Mean Corpuscular Hgb 28.5 pg (27.0-32.0); Mean Corpuscular Volume 90.4 fL (80-94); Mean Platelet Vol. 10.7 fl (6.2-12.0); Monocyte# 0.76 X10^3/uL; Monocyte% 12.2 % (0-10); NRBC Flagged by Analyzer 0 % (0-5); Neutrophil # 3.23 X10^3/uL (2.7-7.7); Neutrophil % 52.1 % (47-70); Platelet Count 179 K/mm3 (150-450); RBC Distribution Width SD 49.6 fl (35.1-43.9); White Blood Count 6.2 K/mm3 (4.4-11.0)
== END | disposition home or self-care (01) ==
LOC: LAB 12:05
PROVIDERS: PCP Family Medicine; Visit Provider Student in an Organized Health Care Education/Training Program
DX: Z51.81 Encounter for therapeutic drug level monitoring (principal); F31.9 Bipolar disorder, unspecified; Q93.88 Other microdeletions
CPT/HCPCS: 36415; 85025

== ENCOUNTER → 2023-08-20 | Outpatient (CLI) | payer MEDICAID, SELFPAY ==
[2023-08-20 11:28] LABS: Absolute Lymphocyte Count 1.55 X10^3/uL (0.83-4.51); Absolute Neutrophil Count 2.6 X10^3/uL (2.0-7.7); Basophil# 0.04 X10^3/uL; Basophil% 0.8 % (0-1); Eosinophil# 0.18 X10^3/uL; Eosinophils% 3.7 % (0-5); Hematocrit 41.3 % (40-54); Hemoglobin 13.3 g/dL (13.0-16.5); Lymphocyte # 1.55 X10^3/ul (0.83-4.51); Lymphocyte % 31.7 % (19-41); Mean Corp Hgb Conc 32.2 g/dL (32-36); Mean Corpuscular Hgb 28.5 pg (27.0-32.0); Mean Corpuscular Volume 88.4 fL (80-94); Mean Platelet Vol. 10.1 fl (6.2-12.0); Monocyte% 10.2 % (0-10); NRBC Flagged by Analyzer 0 % (0-5); Neutrophil % 53.2 % (47-70); Platelet Count 172 K/mm3 (150-450); RBC Distribution Width CV 15.2 % (11.6-14.6); RBC Distribution Width SD 49.1 fl (35.1-43.9); Red Blood Count 4.67 M/mm3 (4.6-6.2); White Blood Count 4.9 K/mm3 (4.4-11.0)
== END | disposition home or self-care (01) ==
LOC: LAB 08:24
PROVIDERS: PCP Family Medicine; Visit Provider Student in an Organized Health Care Education/Training Program
DX: Z51.81 Encounter for therapeutic drug level monitoring (principal); F31.9 Bipolar disorder, unspecified; Q93.88 Other microdeletions
CPT/HCPCS: 36415; 85025

== ENCOUNTER → 2023-10-29 | Outpatient (CLI) | payer MEDICAID, SELFPAY ==
[2023-10-29 11:03] LABS: Absolute Lymphocyte Count 2.02 X10^3/uL (0.83-4.51); Absolute Neutrophil Count 2.3 X10^3/uL (2.0-7.7); Basophil# 0.03 X10^3/uL; Basophil% 0.6 % (0-1); Eosinophil# 0.29 X10^3/uL; Eosinophils% 5.5 % (0-5); Hematocrit 41.8 % (40-54); Hemoglobin 13.2 g/dL (13.0-16.5); Lymphocyte # 2.02 X10^3/ul (0.83-4.51); Lymphocyte % 38.2 % (19-41); Mean Corp Hgb Conc 31.6 g/dL (32-36); Mean Corpuscular Hgb 28.7 pg (27.0-32.0); Mean Corpuscular Volume 90.9 fL (80-94); Mean Platelet Vol. 9.6 fl (6.2-12.0); Monocyte# 0.61 X10^3/uL; Monocyte% 11.5 % (0-10); NRBC Flagged by Analyzer 0 % (0-5); Neutrophil % 43.4 % (47-70); Platelet Count 182 K/mm3 (150-450); RBC Distribution Width CV 15.1 % (11.6-14.6); RBC Distribution Width SD 50.4 fl (35.1-43.9); White Blood Count 5.3 K/mm3 (4.4-11.0)
== END | disposition home or self-care (01) ==
LOC: LAB 09:19
PROVIDERS: PCP Family Medicine; Visit Provider Student in an Organized Health Care Education/Training Program
DX: Z51.81 Encounter for therapeutic drug level monitoring (principal); F31.9 Bipolar disorder, unspecified
CPT/HCPCS: 36415; 85025

== ENCOUNTER → 2023-11-19 | Outpatient (CLI) | payer MEDICAID, SELFPAY | END | disposition home or self-care (01) | LOC: LAB 09:53 | PROVIDERS: PCP Family Medicine; Visit Provider Student in an Organized Health Care Education/Training Program | DX: Z51.81 Encounter for therapeutic drug level monitoring (principal); F31.9 Bipolar disorder, unspecified ==

== ENCOUNTER → 2023-11-20 | Outpatient (CLI) | payer MEDICAID, SELFPAY ==
[2023-11-20 09:49] LABS: Absolute Lymphocyte Count 1.97 X10^3/uL (0.83-4.51); Absolute Neutrophil Count 4.4 X10^3/uL (2.0-7.7); Basophil# 0.04 X10^3/uL; Basophil% 0.5 % (0-1); Eosinophil# 0.23 X10^3/uL; Eosinophils% 3.1 % (0-5); Hematocrit 45.2 % (40-54); Hemoglobin 14.2 g/dL (13.0-16.5); Lymphocyte # 1.97 X10^3/ul (0.83-4.51); Lymphocyte % 26.4 % (19-41); Mean Corp Hgb Conc 31.4 g/dL (32-36); Mean Corpuscular Hgb 28.9 pg (27.0-32.0); Mean Corpuscular Volume 92.1 fL (80-94); Mean Platelet Vol. 9.9 fl (6.2-12.0); Monocyte% 10.7 % (0-10); NRBC Flagged by Analyzer 0 % (0-5); Neutrophil # 4.39 X10^3/uL (2.7-7.7); Neutrophil % 58.9 % (47-70); Platelet Count 190 K/mm3 (150-450); RBC Distribution Width CV 15.3 % (11.6-14.6); RBC Distribution Width SD 51.8 fl (35.1-43.9); Red Blood Count 4.91 M/mm3 (4.6-6.2); White Blood Count 7.5 K/mm3 (4.4-11.0)
== END | disposition home or self-care (01) ==
LOC: LAB 07:53
PROVIDERS: PCP Family Medicine; Visit Provider Student in an Organized Health Care Education/Training Program
DX: Z51.81 Encounter for therapeutic drug level monitoring (principal); F31.9 Bipolar disorder, unspecified
CPT/HCPCS: 36415; 85025

== ENCOUNTER → 2023-12-24 | Outpatient (CLI) | payer MEDICAID, SELFPAY ==
[2023-12-24 10:26] LABS: Absolute Lymphocyte Count 1.74 X10^3/uL (0.83-4.51); Absolute Neutrophil Count 2.4 X10^3/uL (2.0-7.7); Basophil# 0.02 X10^3/uL; Basophil% 0.4 % (0-1); Eosinophil# 0.23 X10^3/uL; Eosinophils% 4.7 % (0-5); Hematocrit 40.6 % (40-54); Hemoglobin 12.7 g/dL (13.0-16.5); Lymphocyte # 1.74 X10^3/ul (0.83-4.51); Lymphocyte % 35.7 % (19-41); Mean Corp Hgb Conc 31.3 g/dL (32-36); Mean Corpuscular Hgb 28.9 pg (27.0-32.0); Mean Corpuscular Volume 92.5 fL (80-94); Mean Platelet Vol. 9.6 fl (6.2-12.0); Monocyte# 0.48 X10^3/uL; Monocyte% 9.9 % (0-10); NRBC Flagged by Analyzer 0 % (0-5); Neutrophil # 2.39 X10^3/uL (2.7-7.7); Neutrophil % 49.1 % (47-70); Platelet Count 167 K/mm3 (150-450); RBC Distribution Width CV 14.7 % (11.6-14.6); RBC Distribution Width SD 51.2 fl (35.1-43.9); Red Blood Count 4.39 M/mm3 (4.6-6.2); White Blood Count 4.9 K/mm3 (4.4-11.0)
--- OUTSIDE RECORDS SUMMARY | 2023-12-24 10:38 | XMS RPT_ITS | CCD ---
Author Organization [facility] Inform ion Partnership [facility] Care Team Providers Care Filter Press Tender Head Name Role Phone SKYLAR DOBBS MD Attending Antione Hirsch MD., DR. ITZ Gómez Primary Care SKYLAR Reyes MD Attending Antione Hirsch MD., DR. ITZ Gómez Primary Care RACHNA Figueroa Attending Unavailable RACHNA HOOK Primary Care Unavailable RACHNA HOOK Admitting Unavailable Mino Primary Care Provider Unavailabl e Medications Current Medications Medication Drug Class(es) Dates Sig (Normalized) Sig (Original) busPIRone hydrochloride 15 mg oral tablet (3 sources) take 1 tablet by mouth three times daily busPIRone (BUSPAR) 15 mg tablet Take 15 mg by mouth three times daily. 0 Active clonazePAM 0.5 mg oral tablet (6 sources) Benzodiazepine take 1 tablet by mouth once daily at breakfast clonazePAM (KLONOPIN) 0.5 mg tablet Take 0.5 mg by mouth daily with breakfast. 0 Active cloZAPine 25 mg oral tablet (6 sources) Atypical Antipsychotic Start: 05-20-2022 take 0.5 tablet by mouth once daily cloZAPine (CLOZARIL) 25 mg tablet Take 0.5 tablets by mouth once daily. 30 tablet 0 05/20/2022 Active Start: 05-19-2022 take 1 tablet by jony th once daily at bedtime cloZAPine (CLOZARIL) 25 mg tablet Take 1 tablet by mouth daily at bedtime. 0 05/19/2022 Active cyclobenzaprine hydrochloride 10 mg oral tablet (3 sources) Muscle Relaxant Start: 05-19-2022 take 1 tablet by mouth once daily as needed for muscle spasms cyclobenzaprine (FLEXERIL) 10 mg tablet Take 1 tablet by mouth once daily as needed for muscle spasm. 10 tablet 0 05/19/2022 Active docusate sodium 50 mg / sennosides, intermediate 8.6 mg oral tablet (3 sources) Start: 05-19-2022 take 2 tablets by mouth every twelve hours as needed senna-docusate (SENNA-S) 8.6-50 mg per tablet Take 2 tablets by mouth twice daily as needed for constipation. 60 tablet 0 05/19/2022 Active pantoprazole 40 mg delayed release oral tablet (3 sources) Proton Pump Inhibitor take 1 tablet by mouth once daily pantoprazole DR (PROTONIX) 40 mg tablet Take 40 mg by mouth once daily. 0 Active polyethylene glycol 3350 56338 mg powder for oral solution (3 sources) Osmotic Laxative Start: 05-19-2022 polyethylene glycol 3350 17 gram packet Take 1 Packet by mouth once daily as needed for constipation. Dissolve dose in 4 - 8 ounces of liquid and take as directed. 30 Packet 0 05/19/2022 Active QUEtiapine 100 mg oral tablet (3 sources) Atypical Antipsychotic QUEtiapine (SEROQUEL) 100 mg tablet Take 125 mg by mouth twice daily. 0 Active divalproex sodium 500 mg delayed release oral tablet (6 sources) Mood Stabilizer, Anti-epileptic Agent take 1 tablet by mouth once daily in the evening divalproex DR (DEPAKOTE) 250 mg EC tablet Take 250 mg by mouth DAILY AT 6 PM. 0 Active take 1 tablet by mouth twice geovanna ly divalproex DR (DEPAKOTE) 500 mg EC tablet Take 500 mg by mouth twice daily. 0 Active Problems Active Problems Problem Classification Problem Date Documented Da te Episodic/Chronic Developmental disorders (1 source) Unspecified intellectual disabilities; Translations: [Unspecified intellectual disabilities] Onset: 04-06-2022 Chronic Esophageal disorders (3 sources) Esophageal obstruction; Translations: [Esophageal obstruction] Onset: 04-06-2022 Chronic Gastritis and duodenitis (1 source) Gastritis, unspecified, without bleeding; Translations: [Gastritis, unspecified, without bleeding] Onset: 04-06-2022 Episodic Other nervous system disorders (3 sources) Disorder of brain; Translations: [Encephalopathy, unspecified] Onset: 05-13-2022 05-13-2022 Chronic Unclassified (1 source) Esophagitis, unspecified without bleeding; Translations: [Esophagitis, unspecified without bleeding] Onset: 04-06-2022 Unclassified (1 source) Chris-mcdermid syndrome; 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] Onset: 08-01-2023 Past or Other Problems Problem Classification Problem Date Documented Da te Episodic/Chronic Other gastrointestinal disorders (3 sources) Constipation; Translations: [Constipation, unspecified] Onset: 05-13-2022 05-13-2022 Episodic Results Test Name Value Interpretation Reference Range [facility] HNO ID: [id number] Author: SONU REYES RT(R) Service: Radiology Author Type: Technologist Type: Allied Health Filed: 08/01/2023 13:10 Note Text: Radiology Service Progress Note PATIENT NAME: Ghanshyam Hook DATE OF SERVICE: August 01, 2023 TIME: 1:09 PM PATIENT IDENTITY VERIFICATION COMPLETED USING TWO (2) IDENTIFIERS: Name and Date of confirmed by identification band. FALL SCREENING: Has the patient had 2 falls in the last year or 1 fall with injury or currently using an Ambulatory Assistive Device (Walker, Cane, Wheelchair, Crutches, etc.)? Inpatient: Screened on floor PATIENT GENDER DATA: Male PATIENT RELEVANT IMPLANT DATA REVIEWED: Not Applicable PATIENT PRESENTS WITH AN IMPLANTABLE OR ATTACHED TREASURY SPECIALIST: No RADIOLOGY DEPARTMENT: MR; Exam(s) Completed: Head: Routine Brain PERIPHERAL IV DATA: Not applicable SIGNED BY: RT Yadira(R) August 01, 2023 1:09 PM [facility] ANES POSTPROC EVALon 024 ANES POSTPROC EVAL HNO ID: [id number] Author: MYKEL BALDERRAMA MD Service: Anesthesiology Author Type: Anesthesiologist Type: Anesthesia Postprocedure Evaluation Filed: 08/01/2023 14:59 Note Text: POST ANESTHESIA EVALUATION NOTE : 1980 Procedure Summary Date: 08/01/23 Room / Location: [facility] OR ANES PROC / [facility] OR Anesthesia Start: 1232 Anesthesia Stop: 1349 Procedure: MRI ANESTHESIA (Brain) 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 Post Anesthesia Patient Status Patient Evaluation: PACU. PACU/ICU Patient Condition: stable. Anticipated Disposition: phase 2 then home. Neurological Status: sleepy but arousable. Pulmonary Status: breathing comfortably on room air Airway Control: returned to baseline unsupported. Cardiovascular Status: stable. Pain Management: clinically adequate Postoperative Hydration: acceptable. Intraoperative Events: no significant anesthesia events Post Operative Nausea/Vomiting Status: no significant post operative nausea or vomiting Recommendation: continue current plan of care. Anesthesia Observations No Documentation SIGNATURE: Mykel Balderrama MD PATIENT NAME: Ghanshyam Hook DATE: August 01, 2023 TIME: 2:59 PM CSN: [id number] Normal [facility] ANES PRE-OPon 08-01-2023 ANES PRE-OP HNO ID: [id number] Author: MYKEL BALDERRAMA MD Service: Anesthesiology Author Type: Anesthesiologist Type: Anesthesia Preprocedure Evaluation Filed: 08/01/2023 12:27 Note Text: ANESTHESIOLOGY DAY OF SURGERY NOTE : 1980 Procedure Information Date/Time: 08/01/23 1220 Procedure: MRI ANESTHESIA (Brain) Location: [place] OR ANES PROC / [place] OR Surgeons: Eduardo Shin MD Estimated body mass index is 24.17 kg/m? as calculated from the following: Height as of 05/13/22: 180.3 cm (5' 11 ). Weight as of 05/13/22: 78.6 kg (173 lb 4.8 oz). Most recent hematocrit and potassium results: Hematocrit 40.9 05/16/2022 Potassium 3.9 05/16/2022 Other history: Bipolar Developmental delay Schizophrenia History per guardian - no issues with anesthesia in the past Relevant Problems No relevant active problems I - PHYSICAL EVALUATION AIRWAY Patient intubated: No. Tracheostomy tube not present Mallampati: III. TM distance: <3 FB. Neck ROM: limited extension. Mouth opening: adequate. Short neck: no. Thick neck: no Lopez present: yes II - ANESTHESIA PLAN ASA Score: 3 Anesthetic Plan: general Airway type: LMA The patient is not a current smoker. NPO Status: adequate Beta Srinivas Perioperative beta-srinvias/statin: n/a. Monitoring Plan Monitoring plan: standard ASA. Post Procedure Analgesic Plan Informed Consent Anesthetic risks, benefits, alternatives, personnel and consent discussed: yes. Patient / Responsible Constitution Party agrees to proceed: yes Patient / Surrogate agrees to blood products: blood products not planned Significant changes in the patient condition since the History and Physical, not otherwise documented in primary service progress note: no. Potential Anesthesia issues that may suggest increased risk of complications or contraindication to planned procedure: none. No vitals data found for the desired time range. No current facility-administered medications on file as of 08/01/2023. Outpatient Medications as of 08/01/2023 Medication Sig cloZAPine (CLOZARIL) 25 mg tablet Take 1 tablet by mouth daily at bedtime. cloZAPine (CLOZARIL) 25 mg tablet Take 0.5 tablets by mouth once daily. polyethylene glycol 3350 17 gram packet Take 1 Packet by mouth once daily as needed for constipation. Dissolve dose in 4 - 8 ounces of liquid and take as directed. senna-docusate (SENNA-S) 8.6-50 mg per tablet Take 2 tablets by mouth twice daily as needed for constipation. cyclobenzaprine (FLEXERIL) 10 mg tablet Take 1 tablet by mouth once daily as needed for muscle spasm. divalproex DR (DEPAKOTE) 500 mg EC tablet Take 500 mg by mouth twice daily. divalproex DR (DEPAKOTE) 250 mg EC tablet Take 250 mg by mouth DAILY AT 6 PM. busPIRone (BUSPAR) 15 mg tablet Take 15 mg by mouth three times daily. clonazePAM (KLONOPIN) 0.5 mg tablet Take 0.5 mg by mouth daily with breakfast. QUEtiapine (SEROQUEL) 100 mg tablet Take 125 mg by mouth twice daily. pantoprazole DR (PROTONIX) 40 mg tablet Take 40 mg by mouth once daily. clonazePAM (KLONOPIN) 0.5 mg tablet Take 0.5 mg by mouth daily with lunch. I have interviewed and examined the patient. I have reviewed the medical record and/or the pre-anesthesia evaluation, pertinent labs, and test results. This contains updated information obtained within 48 hours of Surgery/Procedure. SIGNATURE: Mykel Balderrama MD PATIENT NAME: Ghanshyam Hook DATE: August 01, 2023 TIME: 12:10 PM CSN: [id number] Normal [facility] MRI BRAIN WO IVCONon 024 MRI BRAIN WO IVCON * * *Final Report* * * DATE OF EXAM: Aug 01 2023 1:16PM [facility] 0294 - MRI BRAIN WO IVCON / PROCEDURE REASON: Q93.52 * * * * Physician Interpretation * * * * EXAMINATION: MRI BRAIN WO IVCON CLINICAL HISTORY: Chris-McDermid syndrome TECHNIQUE: Routine noncontrast MRI protocol including diffusion images. MQ: [id number] COMPARISON: None. RESULT: Acute Change: There is no evidence of an acute intracranial process. Hemorrhage: No evidence of prior parenchymal hemorrhage on the gradient echo images. Mass Lesion/ Mass Effect: No evidence of an intracranial mass or extra-axial fluid collection. No significant mass effect. Chronic Change: The white matter is within normal limits of signal intensity for age. Parenchyma: Scaphocephaly. .. The brain parenchyma is otherwise within normal limits of signal intensity and morphology. Ventricles: The lateral and third ventricles are enlarged but this likely relates to central volume loss. Skull Base: Hypothalamic and pituitary region are grossly normal. Craniocervical junction is normal. No significant marrow replacement process. Vasculature: Major intracranial arterial structures, and dural venous sinuses show typical flow void, suggesting patency by spin echo criteria. Other: Right mastoid effusion. The visualized paranasal sinuses are clear. Mild prominence of bilateral optic nerve sheathes, nonspecific. There is a 2.9 x 2.1 x 2.3 cm right parietal scalp lesion containing fluid fluid level. IMPRESSION: No acute intracranial findings. Scaphocephaly. The lateral and third ventricles are enlarged but this likely relates to central volume loss. A 2.9 cm right parietal scalp lesion containing fluid-fluid level. Please correlate with physical examination. Ve Teacher: EDIN Transcribe Date/Time: Aug 05 2023 11:07A Dictated by : EVERETT QUINTANA MD This examination was interpreted and the report reviewed and electronically signed by: EVERETT QUINTANA MD on Aug 05 2023 11:37AM EST [id number] [facility] EMERGENCY REPORTon 3 EMERGENCY REPORT [facility] EMERGENCY ROOM REPORT NAME ACCOUNT SEX AGE ADMIT DISCHARGE PT MED. RECORD# NUMBER DATE DATE TYPE DEVIN HOOK [id number] Sharlene 41 04/06/22 3 [id number] ROOM: ER DATE OF : 1980 DICTATING PHYSICIAN: Dilip Velásquez CHIEF COMPLAINT: Difficulty swallowing. HISTORY OF PRESENT ILLNESS: Patient has significant MR. He lives at home with his parents who help with his care. He normally eats and drinks without any difficulty. This afternoon when he was eating an apple he apparently had some brief choking and then since then has had difficulty swallowing. When he tries to swallow he will drool or regurgitate. Patient is unable to give any significant history. I cannot understand anything he says. He does not seem in any respiratory distress but does have some drooling occasionally. This has not happened before to any extent other than a transient episode that he was able to clear on his own in the past. PAST MEDICAL HISTORY: Negative for other known medical problems. He did have a recent circumcision surgery done, but otherwise does not take medications regularly. SOCIAL HISTORY: Lives at home. He does not smoke or drink alcohol. Accompanied here with his parents who help with his care. REVIEW OF SYSTEMS: No recent injury or trauma. No fever or chills. PHYSICAL EXAMINATION: This is a 41-year-old, thin male who is awake and alert. He does not appear toxic. He does have some occasional drooling but appears in no respiratory distress. He is generally uncooperative, though not combative. His skin is pink, warm and dry. There is no injury noted to head or scalp. No face or neck abnormalities. Lungs seem clear without respiratory distress bilaterally. Cardiac examination: Regular rhythm without ectopy or murmurs. Abdomen: Soft, nontender. He moves all extremities appropriately. Vital signs: Temperature 98, pulse 99, respirations 20, blood pressure 123/84. His oxygen saturation is 97%. Patient would not really open his mouth well to get a good oral exam. What I could see I did not see any lesions or any foreign bodies but really could not get a good posterior pharyngeal exam. EMERGENCY DEPARTMENT COURSE AND TREATMENT: We did try to give him something to drink and it really was not able to get this down and did regurgitate some of it. I was hoping that I could get an esophagram but our radiologist left. I did proceed to get a chest x-ray, and I did not see any abnormalities. I did give him a milligram of glucagon IV and a nitroglycerin sublingual. After that we again tried to give him water or applesauce and he really did not tolerate it. Page 1 of 2 DEVIN HOOK Emergency Room Report DEVIN HOOK : 1980 PLAN/DISPOSITION: Discussed this with Dr. Rachna Hook who will come see the patient. I do feel that it is likely the patient has some type of esophageal obstruction, though it is very difficult to get a good history and physical. I did go ahead and give the patient 40 mg of Protonix in the meantime. Dr Hook will see him. Disposition is pending. Dictated By: Dilip Velásquez MD 04/06/22 19:30 JOB #: [id number] Transcribed By: vinicio 04/06/22 19:40 Electronically signed by: AMIRA Velásquez M.D. 04/09/22 07:29 Page 2 of 2 DEVIN HOOK Emergency Room Report Normal [facility] OPERATIVE PROCEDURESon 04-09 OPERATIVE PROCEDURES [facility] OPERATIVE REPORT NAME ACCOUNT SEX AGE ADMIT DISCHARGE PT MED. RECORD# NUMBER DATE DATE TYPE DEVIN HOOK [id number] M 41 04/06/22 2 [id number] ROOM: [facility] DATE OF : 1980 DICTATING PHYSICIAN: Rachna Hook DATE OF SURGERY: April 06, 2022 SURGEON: Rachna Hook MD ANESTHESIOLOGIST: Mayito Boswell CRNA PREOPERATIVE DIAGNOSIS: Esophageal obstruction with foreign body. Esophagitis. Gastritis. POSTOPERATIVE DIAGNOSIS: Stable to Recovery. OPERATION PERFORMED: EGD and foreign body removal. ESTIMATED BLOOD LOSS: Minimal. Intravenous fluids: 500 mL crystalloid. SPECIMEN: None sent. DESCRIPTION OF OPERATION: Devin Hook is a 41-year-old gentleman who had been eating an apple, had apparently tried to swallow a portion of the apple and had esophageal obstruction (see History and Physical). After consent was obtained and the patient had already been given intravenous fluids and IV Protonix he was brought to the Operating Room, placed on the table in supine position with adequate padding and pressure points. He was intubated to protect his airway. Time out verification done. He was examined in supine position. The oropharynx was nicely exposed. The bite block placed and 2% viscous lidocaine used appropriately. The Olympus GIF-HQ 190 flexible endoscope was passed through the bite block and oropharynx and into the proximal esophagus and there was some mild erythema but it appeared that there was a foreign body lodged at the thoracic inlet. This was rounded at the consistency of an apple portion. This could not be safely budged; therefore, the cabled forceps were introduced through the scope and portions of the apple removed sequentially until the apple collapsed and was small enough to pass on down into the esophagus. It was gently nudged onto the distal esophagus with the endoscope and nudged into the gastric body. In the distal gastric body there is markedly streaked and patchy erythema consistent with gastritis. The scope was passed into the second portion of the duodenum and then carefully withdrawn. The duodenum, the bulb, and pylorus were remarkable for the antral gastritis. I did not see any true mass, active Page 1 of 2 DEVIN HOOK Operative Report DEVIN HOOK : 1980 bleeding, or angiodysplasia but there is some rather severe erosion. The scope was carefully withdrawn with decompression and circumferential viewing and then the esophagus carefully viewed as the scope was withdrawn. There is some distal esophagitis and proximal esophagitis. Scope was withdrawn and the patient tolerated the procedure well. The case was discussed in detail with the family members who were present and the patient can be followed up as an outpatient. I will suggest increasing his Protonix to twice daily one hour before his morning and evening meals for one week and then resume the afternoon Protonix only. Also, I will add Carafate liquid one gram p.o. 4 times daily one hour before meals and bedtime for one week. He is to stay on a bland, soft diet of pureed consistency for 3 days and a soft diet for a total of 2 weeks, then gradually resume a healthy diet. I have discussed the findings with the family. Patient is stable at the close of the procedure. Dictated By: Rachna Hook MD 04/06/22 22:24 JOB #: [id number] Transcribed By: vinicio 04/06/22 22:59 Electronically signed by: E-Sign Dr. Rachna Hook MD 04/09/22 13:43 Page 2 of 2 DEVIN HOOK Operative Report Normal [facility] OPERATIVE PROCEDURES [facility] OPERATIVE REPORT NAME ACCOUNT SEX AGE ADMIT DISCHARGE PT MED. RECORD# NUMBER DATE DATE TYPE DEVIN HOOK [id number] M 41 04/06/22 3 [id number] ROOM: ER DATE OF : 1980 DICTATING PHYSICIAN: Rachna Hook DATE: April 06, 2022 SURGEON: Rachna Hook MD PREOPERATIVE DIAGNOSIS: Esophageal obstruction. HISTORY: Devin Hook is a 41-year-old gentleman who is brought to the Emergency Room by family members. He reported he choked while eating an apple . He has not had respiratory distress but had a prolonged workup in the Emergency Room including swallowing attempts and he still cannot swallow and complains of pain which appears to be in the upper chest / esophageal area. It is difficult to get history from him and some of the information was provided by the Emergency Room staff as well as the accompanying family members. He has no history of similar problems and no history of GI complaints except that occasionally, the family members note, he does not like certain foods but they are not sure which foods because he does not verbalize it. PAST MEDICAL HISTORY: (1) Inability to communicate. (2) MRDD. (3) No heart disease, lung disease, bleeding diathesis. PAST SURGICAL HISTORY: Circumcision less than one month ago. ALLERGIES: No known medical allergies. MEDICATIONS: See medication reconciliation sheets. FAMILY HISTORY: No carcinoma. No bleeding diathesis. No anesthetic allergies noted. SOCIAL HISTORY: Patient has MRDD. Family members are attentive. He lives at home with the family. Smoking: None. Ethanol: None. REVIEW OF SYSTEMS: See Emergency Room notes. PHYSICAL EXAMINATION: Alert male resting on a padded gurney. He is somewhat anxious. Temperature 98, pulse 99, respiratory rate 20 and unlabored, blood pressure 123/84. Oxygen saturation is 97% on room air. Skin: Normal texture. Perhaps slightly decreased turgor. Patient is able to talk, answers questions and does Page 1 of 2 DEVIN HOOK Operative Report DEVIN HOOK : 1980 not appear to have any respiratory distress. His answers, however, are tangential and it is difficult to get accurate history from him. Nares: Unremarkable. Oropharynx: Patient was uncooperative to the ER examination and swallowing attempts. Trachea midline. Neck: No JVD. No thyromegaly. Chest: Clear breath sounds bilaterally. No rales or rhonchi. Heart: Regular rate and rhythm but mild tachycardia. No gallops, rubs, murmurs noted. Abdomen: Soft, nontender, nondistended. No mass or hepatosplenomegaly. Calves: Unremarkable. Fair radial upstroke. Neurologic examination: Patient is unable to provide adequate history. Grossly nonfocal otherwise. X-ray (report initial verbal) report showed no acute distress. Pending written report. ASSESSMENT AND PLAN: This is a 41-year-old patient who reportedly choked while eating an apple and is unable to swallow adequately. He has had multiple bouts of emesis and retching. No evidence of any bleeding with his emesis. There is a vague suggestion from the family that he may have had gastrointestinal issues in the past with certain foods but they do not know which foods. I have examined the patient. He occasionally retches but he is not bringing up any food or liquid at this time and I do not see any evidence of bleeding. I have recommended EGD and I have explained that most likely I would recommend airway protection with intubation and I have explained the procedure, the risks such as bleeding, pain, perforation. I have explained the postoperative plan. Patient has already received some Protonix IV. The accompanying family members wish to proceed as outlined but they did wish to make a phone call to check with the father and they will let us know if they wish to proceed. They have no further questions. Staff has been notified. Dictated By: Rachna Hook MD 04/06/22 20:08 JOB #: [id number] Transcribed By: vinicio 04/06/22 20:31 Electronically signed by: E-Sign Dr. Rachna Hook MD 04/09/22 13:43 Page 2 of 2 DEVIN HOOK Operative Report Normal [facility] CHEST 1 VIEWon 04-06-2022 CHEST 1 VIEW [place] [id number] Patient: DEVIN HOOK Phone#: : 1980 Age: 41 Gender: M Pt. Type: ER Account: [id number] Location: 05 Ordering: DILIP VELÁSQUEZ Exam Date: 04/06/2022/17:30 Family Phys: Charge Code: [id number] Physician: [place] Order #: [id number] Dose#: PROCEDURE: X-RAY CHEST 1 VIEW COMPARISON: None. INDICATIONS: Chest pain. FINDINGS: LUNGS: Normal. No significant pulmonary parenchymal abnormalities. VASCULATURE: Normal. Unremarkable pulmonary vasculature. CARDIAC: Normal. No cardiac silhouette abnormality or cardiomegaly. MEDIASTINUM: Normal. No visible mass or adenopathy. PLEURA: Normal. No effusion or pleural thickening. BONES: Normal. No fracture or visible bony lesion. OTHER: Negative. CONCLUSION: No acute disease. Dictated by: Annmarie Jo MD on 04/07/2022 at 12:12 Approved by: Annmarie Jo MD on 04/07/2022 at 12:13 Normal [facility] Final Surgical Pathology Rep [facility] 04-03-2022 Final Surgical Pathology Report . Pathology Reports Accession: Collected Date/Time: Received Date/Time: Pathologist: [id number] 03/30/2022 13:41 EST 04/02/2022 10:27 EST MD DERIAN JOSÉ Final Surgical Pathology Report DIAGNOSIS: FORESKIN, CIRCUMCISION: - MILD DERMAL FIBROSIS WITH MINIMAL CHRONIC INFLAMMATION CONSISTENT WITH PHIMOSIS COMMENT: [facility] [id number] CLINICAL INFORMATION: Procedure: CIRCUMCISION WITH CYSTOSCOPY Preoperative diagnosis: PHIMOSIS, OVERACTIVE BLADDER Postoperative diagnosis: PHIMOSIS, OVERACTIVE BLADDER SPECIMEN: A PENIS FORESKIN GROSS DESCRIPTION: Received in formalin labeled with the patient's name and foreskin is an 8.5 x 3.2 x 0.6 cm irregularly shaped grace, wrinkled skin. No discrete lesions are grossly identified. RS 1 Dictated by ORALIA MARMOLEJO MICROSCOPIC DESCRIPTION: The microscopic examination is performed, except in the case of Gross Only. Electronically Signed by Pathology Report verified by [facility] DERIAN JOSÉ MD Sign out Date: 04/03/2022 11:16 Performing Lab: [facility], [address] [place] [address] Pathology Dept Normal [facility] ([place]) Encounters Encounter Date Encounter Type Care Provider Facility Start: 08-01-2023 ambulatory Facility:[facility] Start: 08-01-2023 End: 08-01-2023 Subsequent hospital visit by physician Mri Prep/[facility] Comment on above: Chris-mcdermid synd mana [Q93.52] Start: 04-06-2022 End: 04-07-2022 ambulatory RACHNA HOOK [facility] Start: 03-30-2022 End: 03-30-2022 ambulatory SKYLAR DOBBS MD Facility:B Start: 03-22-2022 End: 03-23-2022 ambulatory SKYLAR DOBBS MD Facility:B Plan of Treatment Date Care Activity Detail Author Start: 10-20-2023 Influenza vaccination Influenz a Vaccine (Season Ended) [facility] Start: 02-18-2023 Behavioral Health Screening Behavioral Health Screening [facility] Start: 10-19-2022 Covid-19 Vaccine ( season) Covid-19 Vaccine ( season) [facility] Start: 05-19-2018 Urine microalbumin profile DTa P,Tdap,Td Vaccine (6 - Td or Tdap) [facility] Start: 2016 Lipid panel Lipid Screening [facility] Start: 2000 Hepatitis B Vaccine (1 of 3 - 19+ 3-dose series) Hepatitis B Vaccine (1 of 3 - 19+ 3-dose series) [facility] Start: 07-08-1999 Hepatitis C screening Hepatitis C Sc reening [facility] Start: 07-08-1999 HIV screening HIV Screening [facility] Payers Date Payer Category Payer Medicaid MEDICAID [facility] MEDICAID [id number] 2010-Present [phone] [address] [place] [address] Medicaid [id number] 2010 Medicaid [id number] 1980 Unknown [id number] 1981 Unknown [id number] 1981 Unknown [id number] Medicaid [id number] Social History Date Type Detail Facility Start: 07-31-2023 Tobacco smoking stat us IAIS Never smoked tobacco [facility] Start: 07-31-2023 Tobacco use and exposure Smoke less tobacco non-user [facility] Start: 08-01-2023 Alcohol intake Lifetime non-d francisca (finding) [facility] Start: 08-01-2023 History of Social function [facility] Start: 08-01-2023 Tobacco use panel [facility] National Score (1-10 0), lower number is lower risk 40 [facility] Start: 1980 Sex Assigned At Not on file [facility] Clinical Note 08-01-2023 Note Date & Type Note Facility 08-01-2023 Note HNO ID: [id number] Author: KATIANA MOSQUEDA APRN.STAGE SET UP WORKER Service: ? Author Type: Nurse Drier Take Off Tender Type: Anesthesia Procedure Notes Filed: 08/01/2023 13:04 Note Text: ANESTHESIOLOGY PROCEDURE NOTE Airway General Information Procedure Start Time/Medication Administration: 08/01/2023 12:45 PM Procedure End Time: 08/01/2023 12:45 PM Patient location during procedure: OR Timeout Performed Pre-procedure: timeout performed Consent Obtained: Yes Patient identity confirmed: arm band, care steam box hand and family Staffing Anesthesiologist: Mykel Balderrama MD STAGE SET UP WORKER: Katiana Mosqueda APRN.STAGE SET UP WORKER Performed by: CINDY Indications and Patient Condition Indications for airway management: anesthesia Preoxygenated: yes anesthesia circuit Patient position: sniffing Method: asleep Final Airway Details Final airway type: supraglottic airway Number of attempts at approach: 1 Final Supraglottic Airway: i-gel Size 5 Seal Adequate: yes Failed airway: no Unrecognized esophageal intubation: no Airway not difficult SIGNATURE: Katiana Mosqueda APRN.STAGE SET UP WORKER PATIENT NAME: Ghanshyam Hook DATE: August 01, 2023 TIME: 1:04 PM CSN: [id number] [facility] Clinical Note 07-31-2023 Note Date & Type Note Facility 07-31-2023 Note HNO ID: [id number] Author: JEANCARLOS ANAYA RN Service: ? Author Type: Registered Nurse Type: Nursing Progress Note Filed: 07/31/2023 14:19 Note Text: POA to bring med list to [facility]. [facility] Summary Purpose Family History No Family History Records FoundNo Family History Records FoundNo Family History Records Found Advance Directives No Advanced Directives Records FoundNo Advanced Directives Records FoundNo Advanced Directives Records Found Additional Source Comments (unrecognized sect ion and content) No Status Records FoundNo Status Records FoundNo Status Records Found INFORMATION SOURCE (unrecogn ized section and content) DATE CREATED AUTHOR 04/03/2022 [facility] ([place]) DATE CREATED AUTHOR AUTHOR'S ORGANIZ ATION 04/21/2022 [facility] DATE CREATED AUTHOR AUTHOR'S ORGANIZ ATION 08/06/2023 [facility] Source Comments (unrecognize d section and content) In the event this informatio n is protected by the Federal Confidentiality of Alcohol and Drug Abuse Patient Records regulations: The Federal rules restrict any use of the information to criminally investigate or prosecute any alcohol or drug abuse patient.[facility] the event this information is protected by the Federal Confidentiality of Alcohol and Drug Abuse Patient Records regulations: The Federal rules restrict any use of the information to criminally investigate or prosecute any alcohol or drug abuse patient.[facility] the event this information is protected by the Federal Confidentiality of Alcohol and Drug Abuse Patient Records regulations: The Federal rules restrict any use of the information to criminally investigate or prosecute any alcohol or drug abuse patient.[facility] FOR RECORDS PERTAINING TO PATIENTS WHO [...] THE PRIMARY CLINICAL RECORDS. [facility] [employer] [facility]. provides no warranty or guarantee of the accuracy or completeness of information in this document.
== END | disposition home or self-care (01) ==
LOC: LAB 09:14
PROVIDERS: PCP Family Medicine; Visit Provider Student in an Organized Health Care Education/Training Program
DX: Z51.81 Encounter for therapeutic drug level monitoring (principal); F31.9 Bipolar disorder, unspecified
CPT/HCPCS: 36415; 85025

== ENCOUNTER → 2024-02-11 | Outpatient (CLI) | payer MEDICAID, SELFPAY ==
[2024-02-11 08:48] LABS: Absolute Lymphocyte Count 2.79 X10^3/uL (0.83-4.51); Absolute Neutrophil Count 4.5 X10^3/uL (2.0-7.7); Basophil# 0.04 X10^3/uL; Basophil% 0.5 % (0-1); Eosinophil# 0.21 X10^3/uL; Eosinophils% 2.5 % (0-5); Hematocrit 44.6 % (40-54); Hemoglobin 14.5 g/dL (13.0-16.5); Lymphocyte # 2.79 X10^3/ul (0.83-4.51); Mean Corp Hgb Conc 32.5 g/dL (32-36); Mean Corpuscular Hgb 29.4 pg (27.0-32.0); Mean Corpuscular Volume 90.3 fL (80-94); Mean Platelet Vol. 9.6 fl (6.2-12.0); Monocyte# 0.91 X10^3/uL; Monocyte% 10.8 % (0-10); NRBC Flagged by Analyzer 0 % (0-5); Neutrophil # 4.48 X10^3/uL (2.7-7.7); Neutrophil % 52.8 % (47-70); Platelet Count 171 K/mm3 (150-450); RBC Distribution Width CV 14.2 % (11.6-14.6); RBC Distribution Width SD 46.7 fl (35.1-43.9); Red Blood Count 4.94 M/mm3 (4.6-6.2); White Blood Count 8.5 K/mm3 (4.4-11.0)
== END | disposition home or self-care (01) ==
LOC: LAB 07:41
PROVIDERS: PCP Family Medicine; Visit Provider Student in an Organized Health Care Education/Training Program
DX: Z51.81 Encounter for therapeutic drug level monitoring (principal); F31.9 Bipolar disorder, unspecified
CPT/HCPCS: 36415; 85025

== ENCOUNTER → 2024-03-10 | Outpatient (CLI) | payer MEDICAID, SELFPAY ==
[2024-03-10 11:13] LABS: Absolute Lymphocyte Count 1.61 X10^3/uL (0.83-4.51); Absolute Neutrophil Count 3.1 X10^3/uL (2.0-7.7); Basophil# 0.03 X10^3/uL; Basophil% 0.5 % (0-1); Eosinophils% 3.6 % (0-5); Hematocrit 41.5 % (40-54); Hemoglobin 13.3 g/dL (13.0-16.5); Lymphocyte # 1.61 X10^3/ul (0.83-4.51); Lymphocyte % 29.3 % (19-41); Mean Corpuscular Hgb 28.6 pg (27.0-32.0); Mean Corpuscular Volume 89.2 fL (80-94); Mean Platelet Vol. 9.7 fl (6.2-12.0); Monocyte# 0.52 X10^3/uL; Monocyte% 9.5 % (0-10); NRBC Flagged by Analyzer 0 % (0-5); Neutrophil # 3.11 X10^3/uL (2.7-7.7); Neutrophil % 56.7 % (47-70); Platelet Count 167 K/mm3 (150-450); RBC Distribution Width CV 14.1 % (11.6-14.6); Red Blood Count 4.65 M/mm3 (4.6-6.2); White Blood Count 5.5 K/mm3 (4.4-11.0)
== END | disposition home or self-care (01) ==
LOC: LAB 08:35
PROVIDERS: PCP Family Medicine; Visit Provider Student in an Organized Health Care Education/Training Program
DX: Z51.81 Encounter for therapeutic drug level monitoring (principal); F31.9 Bipolar disorder, unspecified
CPT/HCPCS: 36415; 85025

== ENCOUNTER → 2024-04-14 | Outpatient (CLI) | payer MEDICAID, SELFPAY ==
[2024-04-14 10:19] LABS: Absolute Lymphocyte Count 1.63 X10^3/uL (0.83-4.51); Absolute Neutrophil Count 3.6 X10^3/uL (2.0-7.7); Basophil# 0.03 X10^3/uL; Basophil% 0.5 % (0-1); Eosinophil# 0.18 X10^3/uL; Hematocrit 42.1 % (40-54); Hemoglobin 13.5 g/dL (13.0-16.5); Lymphocyte # 1.63 X10^3/ul (0.83-4.51); Mean Corp Hgb Conc 32.1 g/dL (32-36); Mean Corpuscular Hgb 28.6 pg (27.0-32.0); Mean Corpuscular Volume 89.2 fL (80-94); Mean Platelet Vol. 9.4 fl (6.2-12.0); Monocyte% 9.9 % (0-10); NRBC Flagged by Analyzer 0 % (0-5); Neutrophil # 3.56 X10^3/uL (2.7-7.7); Neutrophil % 58.9 % (47-70); Platelet Count 189 K/mm3 (150-450); RBC Distribution Width CV 14.6 % (11.6-14.6); RBC Distribution Width SD 47.6 fl (35.1-43.9); Red Blood Count 4.72 M/mm3 (4.6-6.2)
== END | disposition home or self-care (01) ==
LOC: LAB 08:52
PROVIDERS: PCP Family Medicine; Visit Provider Student in an Organized Health Care Education/Training Program
DX: Z51.81 Encounter for therapeutic drug level monitoring (principal); F31.9 Bipolar disorder, unspecified; Z79.899 Other long term (current) drug therapy
CPT/HCPCS: 36415; 85025

== ENCOUNTER → 2024-05-05 | Outpatient (CLI) | payer MEDICAID, SELFPAY ==
[2024-05-05 09:52] LABS: Absolute Lymphocyte Count 1.83 X10^3/uL (0.83-4.51); Basophil# 0.05 X10^3/uL; Basophil% 0.8 % (0-1); Eosinophil# 0.19 X10^3/uL; Eosinophils% 3.1 % (0-5); Hematocrit 41.3 % (40-54); Hemoglobin 13.2 g/dL (13.0-16.5); Lymphocyte # 1.83 X10^3/ul (0.83-4.51); Lymphocyte % 29.9 % (19-41); Mean Corpuscular Hgb 28.6 pg (27.0-32.0); Mean Corpuscular Volume 89.4 fL (80-94); Mean Platelet Vol. 8.9 fl (6.2-12.0); Monocyte# 0.82 X10^3/uL; Monocyte% 13.4 % (0-10); NRBC Flagged by Analyzer 0 % (0-5); Neutrophil # 3.04 X10^3/uL (2.7-7.7); Neutrophil % 49.5 % (47-70); Platelet Count 185 K/mm3 (150-450); RBC Distribution Width SD 48.9 fl (35.1-43.9); Red Blood Count 4.62 M/mm3 (4.6-6.2); White Blood Count 6.1 K/mm3 (4.4-11.0)
== END | disposition home or self-care (01) ==
LOC: LAB 08:42
PROVIDERS: PCP Family Medicine; Referring Provider Student in an Organized Health Care Education/Training Program; Visit Provider Student in an Organized Health Care Education/Training Program
DX: Z51.81 Encounter for therapeutic drug level monitoring (principal)
CPT/HCPCS: 36415; 85025

== ENCOUNTER → 2024-06-16 | Outpatient (CLI) | payer MEDICAID, SELFPAY ==
[2024-06-16 11:15] LABS: Absolute Lymphocyte Count 1.99 X10^3/uL (0.83-4.51); Absolute Neutrophil Count 2.9 X10^3/uL (2.0-7.7); Basophil# 0.04 X10^3/uL; Basophil% 0.7 % (0-1); Eosinophil# 0.19 X10^3/uL; Eosinophils% 3.4 % (0-5); Hematocrit 42.8 % (40-54); Hemoglobin 13.9 g/dL (13.0-16.5); Lymphocyte # 1.99 X10^3/ul (0.83-4.51); Lymphocyte % 35.3 % (19-41); Mean Corp Hgb Conc 32.5 g/dL (32-36); Mean Corpuscular Hgb 29.1 pg (27.0-32.0); Mean Corpuscular Volume 89.5 fL (80-94); Mean Platelet Vol. 9.9 fl (6.2-12.0); Monocyte% 8.9 % (0-10); NRBC Flagged by Analyzer 0 % (0-5); Neutrophil # 2.89 X10^3/uL (2.7-7.7); Neutrophil % 51.3 % (47-70); Platelet Count 198 K/mm3 (150-450); RBC Distribution Width CV 14.8 % (11.6-14.6); RBC Distribution Width SD 48.9 fl (35.1-43.9); Red Blood Count 4.78 M/mm3 (4.6-6.2); White Blood Count 5.6 K/mm3 (4.4-11.0)
[2024-06-16 12:13] LABS: Hemoglobin A1c 5.6 % (<=5.6)
[2024-06-16 12:42] LABS: Cholesterol 158 mg/dL (<=200)
[2024-06-16 12:48] LABS: ALB/GLOB Ratio 1.1 RATIO (0.9-2.4); AST(SGOT) 17 U/L (<=37); Alanine Aminotransfer ALT/SGPT < 5 U/L (<=46); Alkaline Phosphatase 62 U/L (40-129); Anion Gap 13 (5-15); BUN 16 mg/dL (4-19); BUN/Creat Ratio 19.4 RATIO (10-20); Calcium,Total 9.7 mg/dL (7.6-11.0); Carbon Dioxide 19.7 mmol/L (21.0-32.0); Chloride 103 mmol/L (98-108); Creatinine, Serum 0.83 mg/dL (0.70-1.20); EST Glomerular Filtration Rate 112 (>60); Globulin 3.8 g/dL (2.2-4.2); Glucose 149 mg/dL (70-99); Potassium 4.2 mmol/L (3.3-5.1); Protein, Total 7.8 g/dL (5.9-8.4); Sodium Level 136 mmol/L (133-145); Total Bilirubin 0.29 mg/dL (0.00-1.30)
== END | disposition home or self-care (01) ==
LOC: LAB 09:07
PROVIDERS: PCP Family Medicine; Visit Provider Student in an Organized Health Care Education/Training Program
DX: Z51.81 Encounter for therapeutic drug level monitoring (principal); F31.9 Bipolar disorder, unspecified
CPT/HCPCS: 36415; 80053; 82465; 83036; 85025

== ENCOUNTER → 2024-07-21 | Outpatient (CLI) | payer MEDICAID, SELFPAY ==
[2024-07-21 11:14] LABS: Absolute Lymphocyte Count 2.47 X10^3/uL (0.83-4.51); Absolute Neutrophil Count 2.7 X10^3/uL (2.0-7.7); Basophil# 0.04 X10^3/uL; Basophil% 0.7 % (0-1); Eosinophil# 0.17 X10^3/uL; Eosinophils% 2.8 % (0-5); Hematocrit 44.3 % (40-54); Hemoglobin 14.2 g/dL (13.0-16.5); Lymphocyte # 2.47 X10^3/ul (0.83-4.51); Lymphocyte % 40.2 % (19-41); Mean Corp Hgb Conc 32.1 g/dL (32-36); Mean Corpuscular Hgb 28.6 pg (27.0-32.0); Mean Corpuscular Volume 89.1 fL (80-94); Monocyte% 11.4 % (0-10); NRBC Flagged by Analyzer 0 % (0-5); Neutrophil # 2.73 X10^3/uL (2.7-7.7); Neutrophil % 44.4 % (47-70); Platelet Count 168 K/mm3 (150-450); RBC Distribution Width CV 14.6 % (11.6-14.6); RBC Distribution Width SD 47.6 fl (35.1-43.9); Red Blood Count 4.97 M/mm3 (4.6-6.2); White Blood Count 6.1 K/mm3 (4.4-11.0)
== END | disposition home or self-care (01) ==
LOC: LAB 09:54
PROVIDERS: PCP Family Medicine; Visit Provider Student in an Organized Health Care Education/Training Program
DX: Z51.81 Encounter for therapeutic drug level monitoring (principal)
CPT/HCPCS: 36415; 85025

== ENCOUNTER → 2024-08-18 | Outpatient (CLI) | payer MEDICAID, SELFPAY ==
[2024-08-18 11:31] LABS: Hematocrit 40.1 % (40-54); Hemoglobin 13.2 g/dL (13.0-16.5); Immature Granulocytes Count 0.040 X10^3/uL (0.0-0.0); Mean Corp Hgb Conc 32.9 g/dL (32-36); Mean Corpuscular Volume 88.5 fL (80-94); Mean Platelet Vol. 9.9 fl (6.2-12.0); NRBC Flagged by Analyzer 0 % (0-5); Platelet Count 165 K/mm3 (150-450); RBC Distribution Width CV 14.3 % (11.6-14.6); RBC Distribution Width SD 45.9 fl (35.1-43.9); Red Blood Count 4.53 M/mm3 (4.6-6.2); White Blood Count 5.4 K/mm3 (4.4-11.0)
== END | disposition home or self-care (01) ==
LOC: LAB 11:11
PROVIDERS: PCP Family Medicine; Referring Provider Student in an Organized Health Care Education/Training Program; Visit Provider Student in an Organized Health Care Education/Training Program
DX: Z51.81 Encounter for therapeutic drug level monitoring (principal)
CPT/HCPCS: 36415; 85025

== ENCOUNTER → 2024-09-22 | Outpatient (CLI) | payer MEDICAID, SELFPAY ==
[2024-09-22 11:14] LABS: Hematocrit 38.6 % (40-54); Hemoglobin 12.2 g/dL (13.0-16.5); Immature Granulocytes Count 0.030 X10^3/uL (0.0-0.0); Mean Corp Hgb Conc 31.6 g/dL (32-36); Mean Corpuscular Volume 90.6 fL (80-94); Mean Platelet Vol. 9.9 fl (6.2-12.0); NRBC Flagged by Analyzer 0 % (0-5); Platelet Count 153 K/mm3 (150-450); RBC Distribution Width CV 14.9 % (11.6-14.6); RBC Distribution Width SD 49.0 fl (35.1-43.9); Red Blood Count 4.26 M/mm3 (4.6-6.2); White Blood Count 5.4 K/mm3 (4.4-11.0)
== END | disposition home or self-care (01) ==
LOC: LAB 09:04
PROVIDERS: PCP Family Medicine; Referring Provider Student in an Organized Health Care Education/Training Program; Visit Provider Student in an Organized Health Care Education/Training Program
DX: Z51.81 Encounter for therapeutic drug level monitoring (principal)
CPT/HCPCS: 36415; 85025

== ENCOUNTER → 2024-10-27 | Outpatient (CLI) | payer MEDICAID, SELFPAY ==
[2024-10-27 10:58] LABS: Hematocrit 37.0 % (40-54); Hemoglobin 12.1 g/dL (13.0-16.5); Immature Granulocytes Count 0.070 X10^3/uL (0.0-0.0); Mean Corp Hgb Conc 32.7 g/dL (32-36); Mean Corpuscular Volume 89.8 fL (80-94); Mean Platelet Vol. 9.4 fl (6.2-12.0); NRBC Flagged by Analyzer 0 % (0-5); Platelet Count 177 K/mm3 (150-450); RBC Distribution Width CV 14.7 % (11.6-14.6); RBC Distribution Width SD 48.3 fl (35.1-43.9); Red Blood Count 4.12 M/mm3 (4.6-6.2); White Blood Count 5.8 K/mm3 (4.4-11.0)
== END | disposition home or self-care (01) ==
LOC: LAB 09:27
PROVIDERS: PCP Family Medicine; Visit Provider Student in an Organized Health Care Education/Training Program
DX: Z51.81 Encounter for therapeutic drug level monitoring (principal)
CPT/HCPCS: 36415; 85025

== ENCOUNTER → 2024-11-24 | Outpatient (CLI) | payer MEDICAID, SELFPAY ==
[2024-11-24 11:13] LABS: Hematocrit 40.3 % (40-54); Hemoglobin 12.8 g/dL (13.0-16.5); Immature Granulocytes Count 0.040 X10^3/uL (0.0-0.0); Mean Corp Hgb Conc 31.8 g/dL (32-36); Mean Corpuscular Volume 90.4 fL (80-94); Mean Platelet Vol. 9.2 fl (6.2-12.0); NRBC Flagged by Analyzer 0 % (0-5); Platelet Count 192 K/mm3 (150-450); RBC Distribution Width CV 14.6 % (11.6-14.6); RBC Distribution Width SD 48.2 fl (35.1-43.9); Red Blood Count 4.46 M/mm3 (4.6-6.2); White Blood Count 6.4 K/mm3 (4.4-11.0)
== END | disposition home or self-care (01) ==
LOC: LAB 09:48
PROVIDERS: PCP Family Medicine; Referring Provider Student in an Organized Health Care Education/Training Program; Visit Provider Student in an Organized Health Care Education/Training Program
DX: Z51.81 Encounter for therapeutic drug level monitoring (principal)
CPT/HCPCS: 36415; 85025

== ENCOUNTER → 2025-01-19 | Outpatient (CLI) | payer MEDICAID, SELFPAY ==
[2025-01-19 09:57] LABS: Hematocrit 42.4 % (40-54); Hemoglobin 13.6 g/dL (13.0-16.5); Immature Granulocytes Count 0.010 X10^3/uL (0.0-0.0); Mean Corp Hgb Conc 32.1 g/dL (32-36); Mean Corpuscular Volume 88.9 fL (80-94); Mean Platelet Vol. 9.8 fl (6.2-12.0); NRBC Flagged by Analyzer 0 % (0-5); Platelet Count 185 K/mm3 (150-450); RBC Distribution Width CV 15.1 % (11.6-14.6); RBC Distribution Width SD 49.4 fl (35.1-43.9); Red Blood Count 4.77 M/mm3 (4.6-6.2); White Blood Count 6.2 K/mm3 (4.4-11.0)
== END | disposition home or self-care (01) ==
LOC: LAB 08:10
PROVIDERS: PCP Family Medicine; Visit Provider Student in an Organized Health Care Education/Training Program
DX: Z51.81 Encounter for therapeutic drug level monitoring (principal)
CPT/HCPCS: 36415; 85025